=== PATIENT | female | born 1950 | race Caucasian/White ===

== ENCOUNTER 2023-12-08 13:48 | Outpatient (OUT) | payer OTHER, SELFPAY ==
[2023-12-09 16:09] LABS: Factor VIII Activity 210 % (56-140)
== END 2023-12-08 13:49 | disposition home or self-care (01) ==
LOC: LAB 13:54
DX: I26.99 Other pulmonary embolism without acute cor pulmonale (principal); D68.59 Other primary thrombophilia
CPT/HCPCS: 36415; 85240

== ENCOUNTER 2024-06-07 16:16 | Outpatient (OUT) | payer OTHER, SELFPAY ==
[2024-06-07 16:43] LABS: Hematocrit 39.9 % (36.0-48.0); Hemoglobin 13.3 g/dL (12.0-16.0); Mean Corpuscular HGB Conc 33.3 g/dL (29.9-35.2); Mean Corpuscular Hemoglobin 30.1 pg (26.7-34.0); Mean Corpuscular Volume 90.3 fL (81.0-99.0); Mean Platelet Volume 10.8 fL (9.5-13.5); Platelet Count 219 10^3/uL (150-450); Red Blood Count 4.42 10^6/uL (4.20-5.40); Red Cell Distribution Width 12.8 % (11.0-15.0)
[2024-06-07 16:47] LABS: Creatinine Urine Random 211.17 mg/dL (20.00-300.00); Protein Creatinine Ratio Urine 0.18; Total Protein Urine Random 37.9 mg/dL (<=11.9)
[2024-06-07 16:52] LABS: Albumin Level 3.4 g/dL (3.4-5.0); Anion Gap 10.4; BUN Creatinine Ratio 21.8; Calcium 9.6 mg/dL (8.5-10.1); Carbon Dioxide 27.9 mmol/L (21.0-32.0); Chloride 106 mmol/L (98-107); Estimated GFR (African America 54 (>=60 mL/min/1.73m^2); Estimated GFR (Non-African Ame 45 (>=60 mL/min/1.73m^2); Glucose 98 mg/dL (74-106); Magnesium 1.5 mg/dL (1.8-2.4); Phosphorus 3.4 mg/dL (2.6-4.7); Potassium 3.3 mmol/L (3.5-5.1); Sodium 141 mmol/L (136-145); Uric Acid 5.4 mg/dL (2.6-6.0)
[2024-06-07 17:10] LABS: Bilirubin Urine NEGATIVE (NEGATIVE); Blood Urine NEGATIVE (NEGATIVE); Clarity Urine CLEAR (CLEAR); Color Urine LT. YELLOW (YELLOW); Glucose Urine UA NEGATIVE (NEGATIVE); Ketones Urine TRACE mg/dL (NEGATIVE); Leukocyte Esterase Urine MODERATE (NEGATIVE); Nitrite Urine NEGATIVE (NEGATIVE); Protein Urine TRACE mg/dL (NEG/TRACE); Specific Gravity Urine 1.015 (1.005-1.025)
[2024-06-07 17:19] LABS: Bacteria Urine SMALL #/HPF (NONE SEEN); Mucus Urine SMALL (NONE SEEN); RBC Urine 0-2 #/HPF (0-2); Squamous Epithelial Cell Urine MODERATE #/LPF (NONE/RARE)
[2024-06-07 17:20] LABS: Cast Seen? NONE SEEN #/LPF (NONE SEEN); Crystals Seen? None Seen #/HPF (None Seen); Transitional Epi Cells Urine RARE #/LPF (NONE SEEN); Urine Culture Indicated YES-FRMC
[2024-06-09 11:08] LABS: PTH, Intact 73 pg/mL (15-65)
== END 2024-06-07 16:17 | disposition home or self-care (01) ==
LOC: LAB 16:18
PROVIDERS: Visit Provider Internal Medicine
DX: E78.5 Hyperlipidemia, unspecified (principal); E79.0 Hyperuricemia without signs of inflammatory arthritis and tophaceous disease; N25.81 Secondary hyperparathyroidism of renal origin; E55.9 Vitamin D deficiency, unspecified; I12.9 Hypertensive chronic kidney disease with stage 1 through stage 4 chronic kidney disease, or unspecified chronic kidney disease; R82.998 Other abnormal findings in urine
CPT/HCPCS: 36415; 80069; 81001; 82306; 82570; 83735; 83970; 84156; 84550; 85027; 87086; 87150

== ENCOUNTER 2024-12-20 08:14 | Outpatient (OUT) | payer OTHER, SELFPAY ==
--- OUTSIDE RECORDS SUMMARY | 2024-12-20 08:23 | XMS_ITS | CCD ---
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 Name Role Phone AMAURY MARTE Unavailable Unavailable [facility], PCP Unavailabl e Unavailable Family[facility] Health Services Primary Care Provider Un available Ginger Roland Attending Provider Unavailable Timothy Presley Attending Provider Unavailable Obed Dunn MD Primary Care Provider Obed Dunn MD Primary Care Provider Obed Dunn MD Primary Care Provider Timothy Presley Unavailable Obed Dunn MD Primary Care Provider EDWARDO FARRIS Consulting Unavailable JUSTIN JEFFERSON Admitting Unavailangélica e JUSTIN JEFFERSON Attending Unavailabl e ANTONIO TY Referring Unavailable OBED DUNN Primary Care Unavailable LEO SAUCEDA Consulting Unavailable NICOLE HASSAN Consulting Unavailable Obed Dunn MD Primary Care Provider Obed Dunn MD Primary Care Provider Obed Dunn MD Primary Care Provider Obed Dunn MD Primary Care Provider GINGER ROLAND Primary Care Physician Bradly Doyle MD Primary Care Provider MALDONADO GONZALEZ Referring Unavailable OBED DUNN Primary Care Unavailable JUAN PABLO COSBY Referring Unavailable BRADLY DOYLE Primary Care Unavailable Marvin Husain Primary Care Physician Marvin Husain Primary Care Physician Marvin Husain PA-C Primary Care Provider ANN CORNEJO Referring Unavailable BRADLY DOYLE Primary Care Unavailable CHANTAL, ANN Referring Unavailable BROWN, BRADLY Davidson Primary Care Unavailable CHANTAL, ANN Referring Unavailable VIVEK, BRADLY Davidson Primary Care Unavailable JUSTIN JC Attending Unavailable MARVIN HUSAIN Primary Care Unavailable TIMOTHY PRESLEY Referring Unavailable BRADLY DOYLE Primary Care Unavailable IGNACIA LARA Referring Unavailable CLINGMAN, CESAR Quintero Primary Care Unavailable CHANTAL, ANN Referring Unavailable CLINGMAN, CESAR A Primary Care Unavailable CHANTAL, ANN Referring Unavailable CLINGMAN, CESAR A Primary Care Unavailable CHANTAL, ANN Referring Unavailable CLINGMAN, CESAR A Primary Care Unavailable MIGDALIA Husain Primary Care Provider MD Timothy Presley Attending Provider [phone] Loreta Casillas Primary Care Physician Vasile Robison Attending Unavailable MD Mckinley Palomares Admit Provider MD Mckinley Palomares Attending Provider MIGDALIA Husain Primary Care Provider MD Timothy Presley Attending Provider [phone] MD Mckinley Palomares Attending Provider MD Mckinley Palomares Admit Provider Spasic, EXECUTIVE COMMUNICATIONS MANAGER-C Ginger Calhoun Attending Provider Marvin Husain PA-C Primary Care Provider Mckinley Palomares MD Attending Provider Mckinley Palomares MD Admit Provider Spasic EXECUTIVE COMMUNICATIONS MANAGER-CGinger Attending Provider Spasic EXECUTIVE COMMUNICATIONS MANAGER-CGinger Primary Care Provider Marvin Husain Attending Unavailable Husain, Marvin E. Attending Unavailable Husain, Marvin E. Attending Unavailable Husain, Marvin E. Attending Unavailable Husain, Marvin E. Attending Unavailable WittenauerMartha S. Attending Unavailable HusainMarvin Attending Unavailable LupilloLoreta LMary Kate Attending Unavailable Husain, Marvin E. Referring Unavailable Townsend, Basem G. Admitting Unavailable Townsend, Basem G. Attending Unavailable Husain, Mavrin E. Attending Unavailable Husain, Marvin E. Admitting Unavailable Husain, Marvin EMary Kate Attending Unavailable Husain, Marvin EMary Kate Admitting Unavailable BhanuMiguel Attending Unavailable Townsend, Basem G. Attending Unavailable Husain, Marvin E. Referring Unavailable Townsend, Basem G. Admitting Unavailable BROWN, Christopher Attending Unavailable BROWN Christopher Referring Unavailable Husain, Marvin E. Attending Unavailable Husain, Marvin E. Referring Unavailable Husain, Marvin E. Admitting Unavailable Husain, Marvin E. Admitting Unavailable Husain, Marvin Mehta Attending Unavailable Husain, Marvin EMary Kate Attending Unavailable Husain, Marvin Calhoun. Attending Unavailable Husain, Marvin Mehta Attending Unavailable Spasic EXECUTIVE COMMUNICATIONS MANAGER-C, Ginger Calhoun Primary Care Provider Chidi Timothy CESAR Attending Provider Filiberto Casillasmy LMary Kate Attending Unavailable Lupillo Loreta LMary Kate Attending Unavailable Lupillo, Loreta L. Admitting Unavailable Lupillo, Loreta L. Attending Unavailable Lupillo, Loreta L. Admitting Unavailable Jelani, Mckinley Admitting Unavailab le Jelani, Mckinley Attending Unavailab le HusainMarvin lawler Primary Care Unavailable Jelani, Mckinley Admitting Unavailab le Jelani, Mckinley Attending Unavailab le HusainMarvin lawler Primary Care Unavailable SpasiGinger correa Primary Care Unavailable ChidiTimothy Admitting Unavailable ChidiTimothy Attending Unavailable ChidiTimothy Attending Unavailable HusainMarvin lawler Primary Care Unavailable Chidi, Timothy Admitting Unavailable Spasic, Ginger E Attending Unavailable Spasic, Ginger E Admitting Unavailable Spasic, Ginger E Primary Care Unavailable Spasic, Ginger E Attending Unavailable Spasic, Ginger E Admitting Unavailable Justin Doyle MD Primary Care Provider Loreta Casillas MD EDUAR CARPENTER Attending Unavailable EDUAR CARPENTER Attending Unavailable Lupillo, Loreta L. Attending Unavailable Lupillo, Loreta L. Attending Unavailable Lupillo, Loreta L. Attending Unavailable Toward, Alexi E Attending Unavailable Townsend, Basem G. Attending Unavailable Husain, Marvin E. Referring Unavailable Lupillo, Loreta L. Referring Unavailable Lupillo, Loreta L. Admitting Unavailable Lupillo, Loreta L. Attending Unavailable Toward, Alexi E Admitting Unavailable Toward, Alexi E Attending Unavailable Hajdari, Astrit H Attending Unavailable Art, Jia A. Admitting Unavailable Lupillo, Loreta L. Attending Unavailable Lupillo, Loreta L. Attending Unavailable Husain, Marvin E. Admitting Unavailable HusainMarvin E. Attending Unavailable Lupillo, Loreta L. Attending Unavailable Lupillo EXECUTIVE COMMUNICATIONS MANAGER-C, Loreta L Primary Care Provider Kendra Marquez MD Attending Provider Lupillo, Loreta L. Attending Unavailable Lupillo, Loreta L. Admitting Unavailable Lupillo, Loreta L. Attending Unavailable Lupillo, Loreta L. Attending Unavailable Lupillo, Loreta L. Admitting Unavailable Lupillo, MSN, APPLE PACKING HEADER-ACTIVITY THERAPIST Loreta L. Admitting U navailable Lupillo, MSN, APPLE PACKING HEADER-ACTIVITY THERAPIST Loreta L. Attending U navailable Lupillo, MSN, APPLE PACKING HEADER-ACTIVITY THERAPIST Loreta L. Admitting U navailable Lupillo, MSN, APPLE PACKING HEADER-ACTIVITY THERAPIST Loreta L. Attending U navailable Lupillo, MSN, APPLE PACKING HEADER-ACTIVITY THERAPIST Loreta L. Admitting U navailable Lupillo, MSN, APPLE PACKING HEADER-ACTIVITY THERAPIST Loreta L. Attending U navailable Lupillo, MSN, APPLE PACKING HEADER-ACTIVITY THERAPIST Loreta L. Attending U navailable Unavailable Unavailable Unavailable Allergies Allergy Classification Reported Allergen(s) Allergy Type Date of Onset Reaction(s) Facility Penicillins (antibiotic) (1 source) Amoxicillin; Translations: [amoxicillin] Drug Allergy Anaphylaxis (disorder) [facility] [place] (20 sources) Amoxicillin; Translations: [amoxicillin] Drug Allergy 3 anaphylaxis, Anaphylaxis (disorder) [facility] (1 source) Amoxicillin Drug Allergy 5 [facility] Repository Medications Current Medications Medication Drug Class(es) Dates Sig (Normalized) Sig (Original) Accu-Chek Smart View 1 (1 source) Start: 06-23-2016 Accu-Chek Smart View 1 as directed subcutaneously tid for 30 Jun, Active Acetaminophen (2 sources) Start: 09-17-2022 acetaminophen (TYLENOL) tablet 650 mg Start: 11-22-2020 acetaminophen (TYLENOL) tablet 650 mg acetaminophen 325 mg / HYDROcodone bitartrate 5 mg oral tablet (19 sources) Opioid Agonist Start: 04-30-2022 End: 05-03-2022 HYDROcodone-acetaminophen (NORCO) 5-325 MG per tablet Indications: Infrapatellar bursitis of left knee Take 1 tablet by mouth every 6 hours as needed for Pain for up to 3 days. Intended supply: 3 days. Take lowest dose possible to manage pain Max Daily Amount: 4 tablets 12 tablet 0 04/30/2022 05/03/2022 Active Start: 09-25-2021 End: 09-25-2021 HYDROcodone-acetaminophen (N ORCO) 5-325 MG per tablet 1 tablet Start: 08-24-2017 End: 11-23-2023 take 2 tablets by mouth every four hours as needed for pain Hydrocodone-Acetaminophen ([place]) 5-325 mg tablet Discontinued 2 TAB PO Q4H as needed for pain August 24, 2017 November 23, 2023 9:38am albuterol 0.83 mg/ml inhalation solution (1 source) beta2-Adrenergic Agonist Start: 11-22-2020 albut asa (PROVENTIL) nebulizer solution 2.5 mg Alcohol swabs, Kinde, band-aids (20 sources) Start: 05-05-2017 Alcohol swabs, Jose F, band-aids Alcohol swabs, Kinde, band-aids, Diabetic supply for a month with 2 refills, for 30 day(s), 2, 2, Print Requisition, Supply Start Date: 05/05/17 Status: Ordered Repeat number: 3 Indications: Type 2 diabetes mellitus with hyperglycemia; Start: 05-05-2017 Alcohol swabs, Kinde, band-aids Alcohol swabs, Jose F, band- aids, Diabetic supply for a month with 2 refills, for 30 day(s), 2, 2, Print Requisition, Supply Start Date: 05/05/17 Status: Ordered Repeat number: 3 Indication: Type 2 diabetes mellitus with hyperglycemia Start: 05-05-2017 Alcohol swabs, Kinde, band-aids Alcohol swabs, Jose F, band- aids, Diabetic supply for a month with 2 refills, for 30 day(s), 2, 2, Print Requisition, Supply Start Date: 05/05/17 Status: Ordered amLODIPine 5 mg oral tablet (20 sources) Dihydropyridine Calcium Channel Shruthi Start: 05-04-2017 End: 07-20-2025 take 1 tablet by mouth once daily amLODIPine 5 mg Tab 5 mg = 1 tab(s), Oral, Daily, # 90 tab(s), Refills(s) 3, Pharmacy: [facility]/pharmacy #[id number], 157.5, cm, 07/25/24 9:05:00 EDT, Height/Length Dosing, 78.7, kg, 07/25/24 9:05:00 EDT, Weight Dosing Start Date: 07/25/24 Stop Date: 07/20/25 Status: Ordered Quantity: 90.0 Unit: tab(s) Repeat number: 4 apixaban 2.5 mg oral tablet (20 sources) Factor Xa Inhibitor Start: 12-23-2022 take 1 tablet by mouth twice daily Eliquis 2.5 mg oral tablet 2.5 mg = 1 tab(s), Oral, BID, # 60 tab(s), Refills(s) 0 Start Date: 12/23/22 Status: Ordered Start: 09-17-2022 take 2.5 mg by mouth twice daily 2.5 mg, Oral, 2 TIMES DAILY, First dose on Thu09/17/22 at 2100, Until Discontinued Indication of Use: Treatment-DVT/PE ANTICOAGULANT Start: 08-22-2021 take 1 tablet by paloma twice daily apixaban (ELIQUIS) 2.5 MG TABS tablet Indications: PE (pulmonary thromboembolism) (HCC) Take 1 tablet by mouth 2 times daily 60 tablet 5 08/08/2022 Active Start: 06-26-2021 take 1 tablet by paloma th twice daily ELIQUIS 5 MG TABS tablet take 1 tablet by mouth twice a day 60 tablet 5 06/26/2021 Active Start: 01-01-2021 take 1 tablet by paloma th twice daily apixaban (ELIQUIS) 5 MG TABS tablet Take 1 tablet by mouth 2 times daily 60 tablet 5 01/01/2021 Active Start: 12-02-2020 End: 12-25-2020 take 1 tablet by mouth twice daily apixaban (ELIQUIS) 5 MG TABS tablet Take 1 tablet by mouth 2 times daily for 23 days 46 tablet 0 12/02/2020 12/25/2020 Active Start: 11-24-2020 End: 12-01-2020 apixaban (ELIQUIS) tablet 10 mg Start: 11-24-2020 End: 11-24-2020 apixaban starter pack (ELIQU IS DVT/PE STARTER PACK) 5 MG TBPK tablet Take 1 tablet by mouth See Admin Instructions 74 tablet 0 11/24/2020 11/24/2020 Discontinued (Stop Taking at Discharge) Start: 11-24-2020 End: 12-01-2020 take 2 tablets by mouth twice daily apixaban (ELIQUIS) 5 MG TABS tablet Take 2 tablets by mouth 2 times daily for 7 days 28 tablet 0 11/24/2020 12/01/2020 Active ARIPiprazole 5 mg oral tablet (20 sources) Atypical Antipsychotic Start: 03-08-2024 End: 03-20-2025 take 1 tablet by mouth once daily Abilify 5 mg Tab 5 mg = 1 tab(s), Oral, Daily, X 90 day(s), # 90 tab(s), Refills(s) 3, Pharmacy: [facility]/pharmacy #[id number], 157.5, cm, 03/25/24 10:49:00 EST, Height/Length Dosing, 87.6, kg, 03/25/24 10:49:00 EST, Weight Dosing Start Date: 03/25/24 Stop Date: 03/20/25 Status: Ordered Quantity: 90.0 Unit: tab(s) Repeat number: 4 Start: 01-19-2024 End: 02-18-2024 take 1 tablet by mouth once daily Abilify 5 mg Tab 5 mg = 1 tab(s), Oral, Daily, X 30 day(s), # 30 tab(s), Refills(s) 0, other reason (Rx) Start Date: 01/19/24 Stop Date: 02/18/24 Status: Ordered Start: 01-01-2024 End: 06-08-2024 take 1 tablet by mouth once daily at bedtime Aripiprazole 2 mg Tablet Discontinued 2 MG PO Daily at bedtime January 01, 2024 12:00am June 08, 2024 4:56pm atorvastatin 40 mg oral tablet (20 sources) HMG-CoA Reductase Inhibitor Start: 11-22-2024 take 1 tablet by mouth once daily atorvastatin 40 mg Tab See Instructions, TAKE 1 TABLET BY MOUTH EVERY DAY, # 90 tab(s), Refills(s) 3, Pharmacy: [facility]/pharmacy #[id number], 157.5, cm, 11/22/24 8:29:00 EDT, Height/Length Dosing, 75, kg, 11/22/24 8:29:00 EDT, Weight Dosing Start Date: 11/22/24 Status: Ordered Quantity: 90.0 Unit: tab(s) Repeat number: 4 Start: 07-11-2021 take 1 tablet by paloma once daily Atorvastatin 40 mg tablet Active 40 MG PO Daily November 23, 2023 12:00am Complies with drug therapy Start: 11-22-2020 take 20 mg by mouth once daily 20 mg, Oral, DAILY, First dose on Nia 11/22/20 at 1015 Substituted for Simvastatin (ZOCOR). Start: 10-25-2020 End: 10-25-2020 atorvastatin (LIPITOR) table t 80 mg benzonatate 100 mg oral capsule (2 sources) Non-narcotic Antitussive Start: 05-10-2024 End: 05-17-2024 take 1 capsule by mouth three times daily Tessalon 100 mg Cap 100 mg = 1 cap(s), Oral, TID, X 7 day(s), # 21 cap(s), Refills(s) 0, Pharmacy: [facility]/pharmacy #[id number], 157.5, cm, 05/10/24 9:05:00 EST, Height/Length Dosing, 85, kg, 05/10/24 9:05:00 EST, Weight Dosing Start Date: 05/10/24 Stop Date: 05/17/24 Status: Ordered blood glucose monitor kit and supplies (20 sources) Start: 09-26-2020 blood glucose monitor kit and supplies Indications: Type 2 diabetes mellitus without complication, with long-term current use of insulin (HCC) Please Dispense One Touch Verio and test sugars 2 times dx E11.9 1 kit 0 09/26/2020 Active cephalexin 500 mg oral capsule (3 sources) Cephalosporin Antibacterial Start: 07-03-2022 take 1 capsule by mouth twice daily cephALEXin (KEFLEX) 500 MG capsule Take 1 capsule by mouth 2 times daily 14 capsule 0 07/03/2022 Active clotrimazole 10 mg/ml topical cream (2 sources) Azole Antifungal Start: 03-04-2021 clotrimazole (LOTRIMIN) 1 % cream Indications: Intertrigo Apply 1 inch topically 2 times daily 45 g 0 03/04/2021 Active Clotrimazole 1 % 1 application Externally Twice a day Active dextromethorphan hydrobromide 3 mg/ml / promethazine hydrochloride 1.25 mg/ml oral solution (2 sources) Phenothiazine, Uncompetitive T-ksgrnx-E-aspartate Receptor Antagonist, Sigma-1 Agonist Start: 05-10-2024 take 5 mL by mouth every six hours for cough dextromethorphan-promethazine 15 mg-6.25 mg/5 mL Oral Syrup 5 mL 5 mL, Oral, q6hr for cough, 120 mL, Refill(s) 0, [facility]/pharmacy #[id number], 157.5, cm, 05/10/24 9:05:00 EST, Height/Length Dosing, 85, kg, 05/10/24 9:05:00 EST, Weight Dosing Start Date: 05/10/24 Status: Ordered docusate sodium 100 mg oral capsule (1 source) Start: 04-02-2023 take 1 capsul e by mouth once daily docusate sodium (COLACE) 100 MG capsule Take 1 capsule by mouth daily 60 capsule 5 04/02/2023 Active 0.8 ml enoxaparin sodium 150 mg/ml prefilled syringe (2 sources) Low Molecular Weight Heparin Start: 12-05-2020 End: 12-23-2020 enoxaparin (LOVENOX) 120 MG/0.8ML injection Indications: Axillary lymphadenopathy , PE (pulmonary thromboembolism) (HCC) , Class 3 severe obesity due to excess calories with serious comorbidity in adult, unspecified BMI (HCC) , Hypothyroidism, unspecified type Inject 0.67 mLs into the skin every 12 hours 6 each 0 12/05/2020 12/23/2020 Discontinued (LIST CLEANUP) ergocalciferol 1.25 mg oral capsule (20 sources) Provitamin D2 Compound Start: 06-08-2024 take 1 capsul e by mouth every week Ergocalciferol (Vitamin D2) 1,250 mcg (50,000 unit) capsule Active 1250 MCG PO every week June 08, 2024 1:00am Complies with drug therapy Start: 10-27-2023 End: 12-30-2023 take 1 capsule by mouth every week Ergocalciferol (Vitamin D2) 1,250 mcg (50,000 unit) capsule Discontinued 0 .ROUTE .COMPLEX October 27, 2023 7:11pm December 30, 2023 6:46am take 1 capsule by mouth every week Start: 10-27-2023 End: 12-30-2023 take 1 capsule by mouth every week Ergocalciferol (Vitamin D2) 1,250 mcg (50,000 unit) capsule Discontinued 0 .ROUTE .COMPLEX October 27, 2023 7:11pm December 30, 2023 6:46am take 1 capsule by mouth every week Start: 10-27-2023 End: 12-30-2023 take 1 capsule by mouth every week Ergocalciferol (Vitamin D2) 1,250 mcg (50,000 unit) capsule Discontinued 0 .ROUTE .COMPLEX October 27, 2023 6:11pm December 30, 2023 5:46am take 1 capsule by mouth every week Start: 10-27-2023 End: 12-30-2023 take 1 capsule by mouth every week Ergocalciferol (Vitamin D2) Discontinued 0 .ROUTE .COMPLEX October 27, 2023 6:11pm December 30, 2023 5:46am take 1 capsule by mouth every week Start: 10-27-2023 End: 12-30-2023 take 1 capsule by mouth every week Ergocalciferol (Vitamin D2) Discontinued 0 .ROUTE .COMPLEX October 27, 2023 7:11pm December 30, 2023 6:46am take 1 capsule by mouth every week Start: 10-27-2023 take 1 capsule by mo uth every week Ergocalciferol (Vitamin D2) Active 0 .ROUTE .COMPLEX October 27, 2023 7:11pm take 1 capsule by mouth every week Start: 10-14-2023 End: 10-27-2023 Ergocalciferol (Vitamin D2) 1,250 mcg (50,000 unit) capsule Discontinued [id number] UNIT PO Once a week October 14, 2023 12:00am October 27, 2023 7:12pm Start: 10-14-2023 End: 10-27-2023 take 25698 [IU] by mouth every week Ergocalciferol (Vitamin D2) Discontinued [id number] UNIT PO Once a week October 13, 2023 11:00pm October 27, 2023 6:12pm Start: 12-23-2022 take 1 capsule by mo uth every week ergocalciferol 50,000 intl units Cap 50,000 International_Unit = 1 cap(s), Oral, qWeek, # 4 cap(s), Refills(s) 0 Start Date: 12/23/22 Status: Ordered Start: 09-24-2021 take 1 capsule by mo uth every week ergocalciferol 50,000 intl units Cap 50,000 International_Unit = 1 cap(s), Oral, qWeek, # 4 cap(s), Refills(s) 0 Start Date: 12/23/22 Status: Ordered Quantity: 4.0 Unit: cap(s) Repeat number: 1 escitalopram 10 mg oral tablet (20 sources) Serotonin Reuptake Inhibitor Start: 03-08-2024 take 1 tablet by mouth once daily Lexapro 10 mg Tab 10 mg = 1 tab(s), Oral, Daily, # 90 tab(s), Refills(s) 3, Pharmacy: [facility]/pharmacy #[id number], 157.5, cm, 03/25/24 10:49:00 EST, Height/Length Dosing, 87.6, kg, 03/25/24 10:49:00 EST, Weight Dosing Start Date: 03/25/24 Status: Ordered Quantity: 90.0 Unit: tab(s) Repeat number: 4 Start: 01-12-2024 take 1 tablet by paloma th once daily Lexapro 10 mg Tab 10 mg = 1 tab(s), Oral, Daily, # 90 tab(s), Refills(s) 0, Pharmacy: [facility]/pharmacy #[id number], 152, cm, 01/12/24 14:19:00 EDT, Height/Length Dosing, 85.5, kg, 01/12/24 14:19:00 EDT, Weight Dosing Start Date: 01/12/24 Status: Ordered Start: 01-01-2024 End: 06-08-2024 take 1 tablet by mouth once daily Escitalopram Oxalate 5 mg Tablet Discontinued 5 MG PO Daily January 01, 2024 12:00am June 08, 2024 4:56pm fluconazole 100 mg oral tablet (10 sources) Azole Antifungal Start: 07-31-2023 End: 08-07-2023 take 1 tablet by mouth once daily fluconazole 100 mg Tab 100 mg = 1 tab(s), Oral, Daily, X 7 day(s), # 7 tab(s), Refills(s) 0, Pharmacy: [facility] #[id number], 157, cm, 07/31/23 8:01:00 EDT, Height/Length Dosing, 93, kg, 07/31/23 8:01:00 EDT, Weight Dosing Start Date: 07/31/23 Stop Date: 08/07/23 Status: Ordered Start: 12-23-2022 fluconazole 15 0 mg Tab 150 mg = 1 tab(s), Oral, q7day, # 2 tab(s), Refills(s) 0, [id number], 152, cm, 12/23/22 9:01:00 EDT, Height/Length Dosing, 93.1, kg, 12/23/22 9:01:00 EDT, Weight Dosing Start Date: 12/23/22 Status: Ordered folic acid 1 mg oral tablet (20 sources) Start: 01-02-2022 take 1 tablet by mouth once daily folic acid 1 mg Tab See Instructions, TAKE 1 TABLET BY MOUTH EVERY DAY, # 90 tab(s), Refills(s) 2, Pharmacy: [id number], 157.5, cm, 05/10/24 9:05:00 EST, Height/Length Dosing, 85, kg, 05/10/24 9:05:00 EST, Weight Dosing Start Date: 05/23/24 Status: Ordered Quantity: 90.0 Unit: tab(s) Repeat number: 1 gabapentin 300 mg oral capsule (20 sources) Anti-epilepti c Agent Start: 05-04-2021 gabapentin (NEURONTIN) 300 MG capsule daily. 0 05/04/2021 Active Start: 05-23-2020 take 1 capsule by mo uth three times daily at mealtime gabapentin (NEURONTIN) 300 MG capsule TAKE 1 CAPSULE BY MOUTH THREE TIMES A DAY WITH MEALS 0 05/23/2020 Active glimepiride 4 mg oral tablet (20 sources) Sulfonylurea Start: 07-26-2020 take 1 tablet by mouth once daily glimepiride 4 mg Tab 4 mg = 1 tab(s), Oral, Daily, # 90 tab(s), Refills(s) 3, Pharmacy: [facility]/pharmacy #[id number], 157.5, cm, 03/25/24 10:49:00 EST, Height/Length Dosing, 87.6, kg, 03/25/24 10:49:00 EST, Weight Dosing Start Date: 03/25/24 Status: Ordered Quantity: 90.0 Unit: tab(s) Repeat number: 4 Start: 05-05-2017 End: 11-23-2023 take 1 tablet by mouth once daily Glimepiride 2 mg tablet Discontinued 2 MG PO Daily August 24, 2017 12:00am November 23, 2023 9:38am Glucometer (20 sources) Start: 05-05-2017 Glucometer Glu cometer, Print Requisition, Supply Start Date: 05/05/17 Status: Ordered Repeat number: 1 Indications: Type 2 diabetes mellitus with hyperglycemia; Start: 05-05-2017 Glucometer Glu cometer, Print Requisition, Supply Start Date: 05/05/17 Status: Ordered Repeat number: 1 Indication: Type 2 diabetes mellitus with hyperglycemia Start: 05-05-2017 Glucometer Glu cometer, Print Requisition, Supply Start Date: 05/05/17 Status: Ordered 1000 ml glucose 100 mg/ml injection (6 sources) Start: 09-17-2022 take 1 mL intravenously every hour IntraVENous, at 100 mL/hr, CONTINUOUS PRN, if blood glucose remains LESS THAN 70 mg/dL after 2 dextrose 10% intravenous boluses or administration of glucagon, Starting on Thu09/17/22 at 2017 If blood glucose fails to stabilize after 2 dextrose 10% intravenous boluses or glucagon administration, start dextrose 10% infusion at 100 mL/hour and repeat blood glucose at 30 and 60 minutes. If blood glucose is GREATER THAN 70 mg/dL after 60 minutes, discontinue dextrose 10% infusion. Start: 09-17-2022 dextrose bolus 10% 125 mL Start: 09-17-2022 16 g (4 tablet ), Oral, PRN, Starting on Thu09/17/22 at 2017, Until Discontinued, Low blood sugar If blood glucose is LESS THAN 70 mg/dL and patient is alert and tolerating oral. Give 4 tablets (16g) Repeat blood glucose in 15 minutes. If blood glucose is LESS THAN 70 mg/dL, repeat treatment and recheck blood glucose in 15 minutes x 2. If blood glucose remains LESS THAN 70 mg/dL, notify provider. Start: 11-22-2020 glucose (GLUTO SE) 40 % oral gel 15 g Start: 11-22-2020 dextrose 50 % IV solution Start: 11-22-2020 dextrose 5 % s olution guaiFENesin 20 mg/ml oral solution (1 source) Start: 11-22-2020 guaiFENesin (ROBITUSSIN) 100 MG/5ML oral solution 200 mg 3 ml insulin glargine 100 unt/ml pen injector (20 sources) Insulin Analog Start: 07-20-2024 inject 30 [IU] by subcutaneous injection once daily at mealtime, then inject 20 [IU] by subcutaneous injection in the evening Start: 02-02-2024 inject 30 [IU] by low bcutaneous injection once daily at mealtime, then inject 20 [IU] by subcutaneous injection once daily in the evening Basaglar KwikPen 100 units/mL subcutaneous solution See Instructions, 30 units SUBQ every morning with food 20 units SUBQ every evening rotate injection sites, # 15 mL, Refills(s) 5, Pharmacy: [facility]/pharmacy #[id number], 152, cm, 02/02/24 9:32:00 EDT, Height/Length Dosing, 85.8, kg, 02/02/24 9:42:00 EDT, Weight Dosing Start Date: 02/02/24 Status: Ordered Start: 11-23-2023 Insulin Glargi ne (Basaglar Kwikpen U-100 Insulin) 100 unit/mL (3 mL) insulin pen Active 20 UNIT SUBCUT Every evening November 23, 2023 12:00am Complies with drug therapy Start: 07-31-2023 inject 30 [IU] by low bcutaneous injection once daily at mealtime, then inject 20 [IU] by subcutaneous injection once daily in the evening Basaglar KwikPen 100 units/mL subcutaneous solution See Instructions, 30 units SUBQ every morning with food 20 units SUBQ every evening rotate injection sites, # 15 mL, Refills(s) 5, Pharmacy: [facility] #[id number], 165, cm, 12/01/23 8:09:00 EDT, Height/Length Dosing, 85, kg, 12/01/23 8:09:00 EDT, Weight Dosing Start Date: 12/02/23 Status: Ordered Start: 12-23-2022 Basaglar KwikP en 100 units/mL subcutaneous solution inject 30 units subcutaneously once daily Start Date: 12/23/22 Status: Ordered Start: 01-16-2022 Insulin Glargi ne (Basaglar Kwikpen U-100 Insulin) 100 unit/mL (3 mL) insulin pen Active 30 UNIT SUBCUT Every morning November 23, 2023 12:00am Complies with drug therapy Start: 08-28-2021 BASAGLAR KWIKP EN 100 UNIT/ML injection pen Inject 30 units SC daily 5 pen 2 08/28/2021 Active Start: 01-01-2021 BASAGLAR KWIKP EN 100 UNIT/ML injection pen Inject 30 units SC daily 5 pen 2 01/01/2021 Active Start: 10-25-2020 insulin glargi ne (LANTUS) injection vial 30 Units Start: 10-23-2020 BASAGLAR KWIKP EN 100 UNIT/ML injection pen Inject 30 units SC daily 5 pen 2 10/23/2020 Active Start: 10-23-2020 BASAGLAR KWIKP EN 100 UNIT/ML injection pen Inject 30 units SC daily 5 pen 2 10/23/2020 Active Start: 07-26-2020 BASAGLAR KWIKP EN 100 UNIT/ML injection pen Inject 30 units SC daily 5 pen 2 07/26/2020 Active ketoconazole 20 mg/ml topical cream (20 sources) Azole Antifungal Start: 06-08-2024 Ketoconazole 2 % cream Active 1 APPLIC TOPICAL Twice daily June 08, 2024 1:00am Complies with drug therapy Start: 07-31-2023 ketoconazole T op 2% Crm 1 boyd, Topical, Daily, 60 gram, Refill(s) 0, [facility] #[id number], 157, cm, 07/31/23 8:01:00 EDT, Height/Length Dosing, 93, kg, 07/31/23 8:01:00 EDT, Weight Dosing Start Date: 07/31/23 Status: Ordered Quantity: 60.0 Unit: g Repeat number: 1 levothyroxine sodium 0.075 mg oral tablet (20 sources) l-Thyroxine Start: 10-24-2024 take 1 tablet by mouth once daily levothyroxine 75 mcg (0.075 mg) Tab 75 mcg = 1 tab(s), Oral, Daily, # 90 tab(s), Refills(s) 4, Pharmacy: [facility]/pharmacy #[id number], 157.5, cm, 07/25/24 9:05:00 EDT, Height/Length Dosing, 78.7, kg, 07/25/24 9:05:00 EDT, Weight Dosing Start Date: 10/24/24 Status: Ordered Quantity: 90.0 Unit: tab(s) Repeat number: 5 Start: 07-26-2024 take 1 tablet by paloma th once daily levothyroxine 75 mcg (0.075 mg) Tab 75 mcg = 1 tab(s), Oral, Daily, # 90 tab(s), Refills(s) 0, Pharmacy: [facility]/pharmacy #[id number], 157.5, cm, 07/25/24 9:05:00 EDT, Height/Length Dosing, 78.7, kg, 07/25/24 9:05:00 EDT, Weight Dosing Start Date: 07/26/24 Status: Ordered Quantity: 90.0 Unit: tab(s) Repeat number: 1 Start: 12-01-2023 take 1 tablet by paloma th once daily in the morning levothyroxine 88 mcg (0.088 mg) Tab 88 mcg = 1 tab(s), Oral, Daily, take 1 tablet by mouth every morning ON AN EMPTY STOMACH, # 90 tab(s), Refills(s) 3, Pharmacy: [facility]/pharmacy #[id number], 157.5, cm, 03/25/24 10:49:00 EST, Height/Length Dosing, 87.6, kg, 03/25/24 10:49:00 EST, Weight Dosing Start Date: 03/25/24 Status: Ordered Quantity: 90.0 Unit: tab(s) Repeat number: 4 Start: 11-23-2023 take 1 tablet by paloma th once daily Levothyroxine 88 mcg tablet Active 88 MCG PO Daily November 23, 2023 12:00am Complies with drug therapy Start: 12-18-2022 take 1 tablet by paloma th once daily in the morning levothyroxine 88 mcg (0.088 mg) Tab 88 mcg = 1 tab(s), Oral, Daily, take 1 tablet by mouth every morning ON AN EMPTY STOMACH, # 90 tab(s), Refills(s) 1, Pharmacy: [facility] #[id number], 157, cm, 06/22/23 8:55:00 EDT, Height/Length Dosing, 93.4, kg, 06/22/23 8:55:00 EDT, Weight Dosing Start Date: 06/23/23 Status: Ordered Start: 06-16-2022 take 1 tablet by paloma th once daily in the morning levothyroxine (SYNTHROID) 88 MCG tablet take 1 tablet by mouth every morning ON AN EMPTY STOMACH 90 tablet 1 06/16/2022 Active Start: 09-12-2021 take 1 tablet by paloma th in the morning levothyroxine (SYNTHROID) 88 MCG tablet TAKE 1 TABLET BY MOUTH IN THE MORNING ON AN EMPTY STOMACH 90 tablet 1 09/12/2021 Active Start: 03-13-2021 take 1 tablet by paloma th once daily in the morning levothyroxine (SYNTHROID) 88 MCG tablet take 1 tablet by mouth every morning ON AN EMPTY STOMACH 90 tablet 1 03/13/2021 Active Start: 01-08-2021 Levothyroxine Sodium 88 MCG CAPS 1 tablet on an empty stomach in the morning 90 capsule 1 01/08/2021 Active Start: 11-25-2020 levothyroxine (SYNTHROID) tablet 88 mcg Start: 11-22-2020 End: 11-23-2020 take 88 ug by mouth once daily at breakfast 88 mcg, Oral, DAILY WITH BREAKFAST, First dose on Nia 11/22/20 at 1015 Tube feeding (TF) interaction, obtain physician order to manage, recommend holding TF for 30 minutes before and after dose. Start: 07-26-2020 End: 12-20-2020 Levothyroxine Sodium 88 MCG CAPS 1 tablet on an empty stomach in the morning 90 capsule 1 12/20/2020 Active Start: 08-24-2017 End: 11-23-2023 take 1 tablet by mouth once daily Levothyroxine 100 mcg tablet Discontinued 100 MCG PO Daily August 24, 2017 12:00am November 23, 2023 9:38am Start: 08-24-2017 End: 08-24-2017 Levothyroxine 100 mcg tablet Discontinued August 24, 2017 12:00am August 24, 2017 6:23am Start: 06-09-2014 take 1 tablet by paloma th once daily levothyroxine 100 mcg (0.1 mg) Tab 100 microgram = 1 tab(s), Oral, Daily, Refills(s) 0 Start Date: 06/09/14 Status: Ordered Levothyroxine So dium 88 MCG TAKE 1 TABLET EVERY DAY Orally Once a day Active lisinopril 2.5 mg oral tablet (20 sources) Angiotensin Converting Enzyme Inhibitor Start: 12-01-2023 take 1 tablet by mouth once daily lisinopril 2.5 mg Tab 2.5 mg = 1 tab(s), Oral, Daily, # 90 tab(s), Refills(s) 1, Pharmacy: [facility] #[id number], 165, cm, 12/01/23 8:09:00 EDT, Height/Length Dosing, 85, kg, 12/01/23 8:09:00 EDT, Weight Dosing Start Date: 12/01/23 Status: Ordered Start: 05-27-2021 End: 09-17-2022 take 1 tablet by mouth once daily lisinopril (PRINIVIL;ZESTRIL) 2.5 MG tablet TAKE 1 TABLET BY MOUTH EVERY DAY 0 05/27/2021 Active magnesium chloride 598 mg delayed release oral tablet (7 sources) Start: 06-08-2024 take 1 tablet by mouth once daily Magnesium Chloride (Slow-Mag) 71.5 mg tablet,delayed release (DR/EC) Active 71.5 MG PO Daily June 08, 2024 1:00am Complies with drug therapy magnesium citrate (15 sources) Start: 07-31-2023 magnesium citrate Refill(s) 0 Start Date: 07/31/23 Status: Ordered magnesium oxide 400 mg oral tablet (1 source) Start: 05-18-2023 take 1 tablet by mouth every twenty-four hours Magnesium Oxide 400 MG 1 Tablet Orally Once a day for 90 days May, Active 100 ml magnesium sulfate 10 mg/ml injection (1 source) Start: 11-22-2020 magnesium sulfate 1000 mg in dextrose 5% 100 mL IVPB memantine hydrochloride 10 mg oral tablet (20 sources) Z-ddyxzn-S-aspar nguyen Receptor Antagonist Start: 06-28-2020 take 1 tablet by mouth twice daily Namenda 10 mg oral tablet 10 mg = 1 tab(s), Oral, BID, # 180 tab(s), Refills(s) 3, Pharmacy: [facility]/pharmacy #[id number], 157.5, cm, 03/25/24 10:49:00 EST, Height/Length Dosing, 87.6, kg, 03/25/24 10:49:00 EST, Weight Dosing Start Date: 03/25/24 Status: Ordered Quantity: 180.0 Unit: tab(s) Repeat number: 4 24 hr metFORMIN hydrochloride 500 mg extended release oral tablet (20 sources) Biguanide Start: 07-26-2020 End: 12-23-2020 take 1 tablet by mouth once daily at breakfast metFORMIN (GLUCOPHAGE-XR) 500 MG extended release tablet Take 1 tablet by mouth daily (with breakfast) 30 tablet 5 07/26/2020 12/23/2020 Discontinued (LIST CLEANUP) Start: 05-05-2017 End: 11-23-2023 take 1 tablet by mouth twice daily Metformin 1,000 mg Tablet Discontinued 1000 MG PO Twice daily August 24, 2017 12:00am November 23, 2023 9:39am Misc. Devices MISC (20 sources) Start: 10-08-2021 Misc. Devices MISC Indications: Knee effusion, right , Acute pain of right knee , Imbalance Dispense one standard walker 1 each 0 10/08/2021 Active mupirocin 0.02 mg/mg nasal ointment (8 sources) RNA Synthetase Inhibitor Antibacterial Start: 12-12-2021 mupirocin (BACTROBAN NASAL) 2 % nasal ointment Indications: Nostril sore , Impetigo Take by Nasal route 2 times daily. 1 g 0 12/12/2021 Active nitrofurantoin, macrocrystals 25 mg / nitrofurantoin, monohydrate 75 mg oral capsule (2 sources) Nitrofuran Antibacterial Start: 08-11-2022 End: 08-16-2022 take 1 capsule by mouth twice daily nitrofurantoin, macrocrystal-monoh ydrate, (MACROBID) 100 MG capsule Indications: UTI symptoms Take 1 capsule by mouth 2 times daily for 5 days 10 capsule 0 08/11/2022 08/16/2022 Active Start: 06-30-2022 End: 07-07-2022 take 1 capsule by mouth twice daily nitrofurantoin, macrocrystal-monohydrate , (MACROBID) 100 MG capsule Take 1 capsule by mouth 2 times daily for 7 days 14 capsule 0 06/30/2022 07/07/2022 Active nystatin 100 unt/mg topical powder (20 sources) Polyene Antifungal Start: 07-31-2023 nystatin To p 100,000 units/g Pwdr 1 boyd, Topical, BID, 60 gram, Refill(s) 3, [facility]/pharmacy #[id number], 152, cm, 02/02/24 9:32:00 EDT, Height/Length Dosing, 85.8, kg, 02/02/24 9:42:00 EDT, Weight Dosing Start Date: 02/02/24 Status: Ordered Quantity: 60.0 Unit: g Repeat number: 4 Start: 12-23-2022 nystatin Top 1 00,000 units/g Pwdr 1 boyd, Topical, BID, 60 gram, Refill(s) 1, [facility] #[id number], 152, cm, 12/23/22 9:01:00 EDT, Height/Length Dosing, 93.1, kg, 12/23/22 9:01:00 EDT, Weight Dosing Start Date: 12/23/22 Status: Ordered Start: 09-17-2022 apply 1 dose topical ly twice daily Topical, 2 times daily, First dose on 6/14/23 at 2100 Apply to between legs. Start: 08-11-2022 nystatin (MYCO STATIN) 333122 UNIT/GM cream Indications: Yeast infection of the skin Apply topically in the morning and at bedtime Apply topically 2 times daily. (Rash between legs) 60 g 1 08/11/2022 Active Start: 04-17-2022 nystatin (MYCO STATIN) 855469 UNIT/GM cream Apply topically in the morning and at bedtime Apply topically 2 times daily. 60 g 1 04/17/2022 Active OLANZapine 10 mg oral tablet (20 sources) Atypical Antipsychotic Start: 11-22-2020 take 20 mg by mouth once daily 20 mg, Oral, NIGHTLY, First dose on Nia 11/22/20 at 2100 Start: 06-28-2020 take 1 tablet by paloma th at bedtime OLANZapine (ZYPREXA) 20 MG tablet TAKE 1 TABLET BY MOUTH AT BEDTIME 0 06/28/2020 Active Start: 08-24-2017 End: 11-23-2023 take 1 tablet by mouth at bedtime Olanzapine 15 mg tablet Discontinued 15 MG PO Bedtime August 24, 2017 12:00am November 23, 2023 9:39am Start: 05-04-2017 take 1 tablet by paloma th once daily at bedtime olanzapine 5 mg oral tablet 5 mg = 1 tab(s), Oral, Once a day (at bedtime), Refills(s) 0 Start Date: 05/04/17 Status: Ordered ondansetron 4 mg oral tablet (20 sources) Serotonin-3 Receptor Antagonist Start: 08-11-2023 take 1 tablet by mouth every eight hours as needed for nausea Zofran 4 mg Tab 4 mg = 1 tab(s), Oral, q8hr, PRN Nausea/Vomiting, # 20 tab(s), Refills(s) 0, Pharmacy: [facility] #[id number], 165, cm, 08/11/23 10:05:00 EDT, Height/Length Dosing, 92.9, kg, 08/11/23 10:05:00 EDT, Weight Dosing Start Date: 08/11/23 Status: Ordered Quantity: 20.0 Unit: tab(s) Repeat number: 1 Start: 11-21-2020 End: 11-21-2020 ondansetron (ZOFRAN) injecti on 4 mg ondansetron (ZOFRAN-ODT) disintegrating tablet 4 mg (2 sources) Start: 09-17-2022 ondansetron (Z OFRAN-ODT) disintegrating tablet 4 mg Start: 11-22-2020 ondansetron (Z OFRAN-ODT) disintegrating tablet 4 mg phenazopyridine hydrochloride 100 mg oral tablet (1 source) Start: 09-18-2022 End: 09-21-2022 phenazopyridine (PYRIDIUM) tablet 100 mg polyethylene glycol 3350 82073 mg powder for oral solution (3 sources) Osmotic Laxative Start: 04-02-2023 End: 03-27-2024 polyethylene glycol (GLYCOLAX) 17 GM/SCOOP powder Indications: Other constipation Take 17 g by mouth daily 1530 g 3 04/02/2023 03/27/2024 Active Start: 09-17-2022 17 g, Oral, DA PHANI PRN, Starting on Thu09/17/22 at 2018, Until Discontinued, Constipation First line therapy for constipation Start: 11-22-2020 polyethylene g lycol (GLYCOLAX) packet 17 g primidone 50 mg oral tablet (11 sources) Anti-epileptic Agent Start: 11-22-2020 End: 01-15-2021 take 50 mg by mouth twice daily 50 mg, Oral, 2 TIMES DAILY, First dose on Thu11/22/20 at 1015 24 hr propranolol hydrochloride 120 mg extended release oral capsule (20 sources) beta-Adrenergic Shruthi Start: 11-23-2023 take 1 capsule by mouth once daily Propranolol 120 mg capsule,extended release 24 hr Active 120 MG PO Daily November 23, 2023 12:00am Start: 11-23-2023 take 1 capsule by mo [facility] once daily Propranolol 120 mg capsule,extended release 24 hr Active 120 MG PO Daily November 22, 2023 11:00pm Start: 11-23-2023 take 120 mg by mouth once daily Propranolol Active 120 MG PO Daily November 22, 2023 11:00pm Start: 09-17-2022 take 120 mg by mouth once daily 120 mg, Oral, DAILY, First dose on Thu09/17/22 at 2045, Until Discontinued Do not crush or break. Start: 11-22-2020 take 120 mg by mouth once daily 120 mg, Oral, DAILY, First dose on Thu21 at 1015 Do not crush or break. Start: 07-04-2020 take 1 capsule by mo uth once daily propranolol 120 mg Cap-ER See Instructions, TAKE 1 CAPSULE BY MOUTH EVERY DAY, # 90 cap(s), Refills(s) 3, Pharmacy: [facility]/pharmacy #[id number], 157.5, cm, 03/25/24 10:49:00 EST, Height/Length Dosing, 87.6, kg, 03/25/24 10:49:00 EST, Weight Dosing Start Date: 03/25/24 Status: Ordered Quantity: 90.0 Unit: cap(s) Repeat number: 4 regadenoson (LEXISCAN) injection 0.4 mg (1 source) Start: 09-18-2022 regadenoson (LEXISCAN) injection 0.4 mg rOPINIRole 0.25 mg oral tablet (20 sources) Nonergot Dopamine Agonist Start: 09-17-2022 take 0.25 mg by mouth once daily 0.25 mg, Oral, NIGHTLY, First dose on Thu09/17/22 at 2100, Until Discontinued Start: 09-05-2022 take 1 tablet by paloma once daily ropinirole 0.25 mg Tab See Instructions, TAKE 1 TABLET BY MOUTH EVERY DAY, # 90 tab(s), Refills(s) 1, Pharmacy: [facility]ORE [id number], 157.5, cm, 07/25/24 9:05:00 EDT, Height/Length Dosing, 78.7, kg, 07/25/24 9:05:00 EDT, Weight Dosing Start Date: 09/08/24 Status: Ordered Quantity: 90.0 Unit: tab(s) Repeat number: 1 semaglutide 7 mg oral tablet (20 sources) Start: 09-11-2023 take 1 tablet by mouth once daily Rybelsus 7 mg oral tablet 7 mg = 1 tab(s), Oral, Daily, take at least 30 minutes before first food, beverage, or other oral meds, # 90 tab(s), Refills(s) 3, Pharmacy: [facility]/pharmacy #[id number], 152, cm, 02/02/24 9:32:00 EDT, Height/Length Dosing, 85.8, kg, 02/02/24 9:42:00 EDT, Weight Dosing Start Date: 03/16/24 Status: Ordered Quantity: 90.0 Unit: tab(s) Repeat number: 4 Start: 08-11-2023 take 1 tablet by paloma th once daily Rybelsus 3 mg oral tablet 3 mg = 1 tab(s), Oral, Daily, take at least 30 minutes before first food, beverage, or other oral meds, # 30 tab(s), Refills(s) 0, Pharmacy: [facility] #[id number], 165, cm, 08/11/23 10:05:00 EDT, Height/Length Dosing, 92.9, kg, 08/11/23 10:05:00 EDT, Weight Dosing Start Date: 08/11/23 Status: Ordered Semaglutide (Rybelsus) 7 mg tablet (9 sources) Start: 11-23-2023 take 1 tablet by mouth once daily Semaglutide (Rybelsus) 7 mg tablet Active 7 MG PO Daily November 22, 2023 11:00pm Start: 11-23-2023 take 1 tablet by paloma th once daily Semaglutide (Rybelsus) 7 mg tablet Active 7 MG PO Daily November 23, 2023 12:00am simvastatin 20 mg oral tablet (20 sources) HMG-CoA Reductase Inhibitor Start: 01-28-2021 simvastatin (ZOCOR) 20 MG tablet 1 tablet in the evening 90 tablet 1 01/28/2021 Active Start: 07-26-2020 simvastatin (Z OCOR) 20 MG tablet 1 tablet in the evening 90 tablet 1 07/26/2020 Active Start: 05-04-2017 End: 11-23-2023 take 1 tablet by mouth once daily in the evening Simvastatin 10 mg tablet Discontinued 10 MG PO Every evening August 24, 2017 12:00am November 23, 2023 9:39am 1000 ml sodium chloride 9 mg/ml injection (10 sources) Start: 09-17-2022 IntraVENous, a t 100 mL/hr, CONTINUOUS, Starting on Thu09/17/22 at 5 Start: 09-17-2022 IntraVENous, a t 5-250 mL/hr, PRN, if patient receiving piggyback infusions and maintenance fluids are not ordered OR KVO fluids to protect IV site / prevent frequent line interruptions/ long duration, Starting on Thu09/17/22 at 2018 For piggyback infusion, administer at same rate as piggyback for a total of 25 mL. Enter 25 mL into dose field and piggyback rate into rate field of order. If piggyback is infusing at a rate less than 100 mL/hr, enter 25 mL into dose field and 100 mL/hr into rate field of order. For KVO fluids, enter rate of 20 mL/hr or less into rate field of order. Start: 09-17-2022 take 1 dose intraven ously twice daily 5-40 mL, IntraVENous, EVERY 12 HOURS SCHEDULED (2 times per day), First dose on Thu09/17/22 at 2100, Until Discontinued For Line Patency: Peripheral IV = 5 mL; Midline or Central Line = 10 mL/lumen. If following IV push medication, administer flush at same rate as the IV push. Flush volume is determined by type of infusion therapy being given. For non-viscous solutions use: Peripheral IV = 5 mL Midline or Central Line = 10 mL/lumen For viscous solutions (i.e. blood components, parenteral nutrition, contrast media, or after obtaining blood sample) use: Peripheral IV = 10 mL Midline or Central Line = 20 mL/lumen Start: 09-17-2022 take 5-40 mL intrave nously once as needed 5-40 mL, IntraVENous, PRN, Starting on Thu09/17/22 at 2018, Until Discontinued, Line Care, After every IV line use For Line Patency: Peripheral IV = 5 mL; Midline or Central Line = 10 mL/lumen. If following IV push medication, administer flush at same rate as the IV push. Flush volume is determined by type of infusion therapy being given. For non-viscous solutions use: Peripheral IV = 5 mL Midline or Central Line = 10 mL/lumen For viscous solutions (i.e. blood components, parenteral nutrition, contrast media, or after obtaining blood sample) use: Peripheral IV = 10 mL Midline or Central Line = 20 mL/lumen Start: 11-22-2020 sodium chlorid e flush 0.9 % injection 5-40 mL Start: 11-21-2020 0.9 % sodium c hloride infusion Start: 11-21-2020 End: 11-21-2020 0.9 % sodium chloride bolus Start: 10-25-2020 End: 10-25-2020 0.9 % sodium chloride bolus sulfamethoxazole 800 mg / trimethoprim 160 mg oral tablet (2 sources) Dihydrofolate Reductase Inhibitor Antibacterial, Sulfonamide Antimicrobial Start: 10-23-2020 End: 10-30-2020 take 1 tablet by mouth twice daily sulfamethoxazole-trimethoprim (BACTRIM DS;SEPTRA DS) 800-160 MG per tablet Take 1 tablet by mouth 2 times daily for 7 days 14 tablet 0 10/23/2020 10/30/2020 Active tamsulosin hydrochloride 0.4 mg oral capsule (7 sources) alpha-Adrenergic Shruthi Start: 09-19-2022 take 1 capsule by mouth once daily tamsulosin (FLOMAX) 0.4 MG capsule Take 1 capsule by mouth daily 30 capsule 3 09/19/2022 Active Start: 09-18-2022 tamsulosin (FL OMAX) capsule 0.4 mg traMADol hydrochloride 50 mg oral tablet (1 source) Opioid Agonist Start: 09-25-2021 End: 10-02-2021 take 1 tablet by mouth every eight hours as needed for pain traMADol (ULTRAM) 50 MG tablet Indications: Effusion of right knee Take 1 tablet by mouth every 8 hours as needed for Pain for up to 7 days. 20 tablet 0 09/25/2021 10/02/2021 Active traZODone hydrochloride 50 mg oral tablet (20 sources) Serotonin Reuptake Inhibitor Start: 01-04-2024 take 1 tablet by mouth once daily at bedtime traZODONE 50 mg Tab See Instructions, TAKE 1 TABLET BY MOUTH EVERYDAY AT BEDTIME, # 90 tab(s), Refills(s) 3, Pharmacy: [facility]/pharmacy #[id number], 157.5, cm, 03/25/24 10:49:00 EST, Height/Length Dosing, 87.6, kg, 03/25/24 10:49:00 EST, Weight Dosing Start Date: 03/25/24 Status: Ordered Quantity: 90.0 Unit: tab(s) Repeat number: 4 Start: 07-30-2021 End: 01-01-2024 take 1 tablet by mouth once Trazodone 50 mg tablet Dis continued 50 MG PO Once November 23, 2023 12:00am January 01, 2024 8:01am Completed/Discontinued Medications Medication Drug Class(es) Dates Sig (Normalized) Sig (Original) alcohol (17 sources) Start: 12-03-2023 alcohol alcoho l, See Instructions, 200 pad(s), 3, tests BID alcohol wipes, [facility] #[id number], Supply, 165, cm, 12/01/23 8:09:00 EDT, Height/Length Dosing, 85, kg, 12/01/23 8:09:00 EDT, Weight Dosing Start Date: 12/03/23 Status: Ordered Quantity: 200.0 Unit: pad(s) Repeat number: 4 Start: 12-03-2023 alcohol alcoho l, See Instructions, 200 pad(s), 3, tests BID alcohol wipes, [facility] #[id number], Supply, 165, cm, 12/01/23 8:09:00 EDT, Height/Length Dosing, 85, kg, 12/01/23 8:09:00 EDT, Weight Dosing Start Date: 12/03/23 Status: Ordered aluminum & magnesium hydroxide-simethicone (MAALOX) 30 mL, lidocaine viscous hcl (XYLOCAINE) 5 mL (GI COCKTAIL) (1 source) Start: 11-21-2020 End: 11-21-2020 aluminum & magnesium hydroxide-simethicone (MAALOX) 30 mL, lidocaine viscous hcl (XYLOCAINE) 5 mL (GI COCKTAIL) aspirin 81 mg chewable tablet (20 sources) Platelet Aggregation Inhibitor, Nonsteroidal Anti-inflammato ry Drug Start: 09-17-2022 take 162 mg by mouth once daily 162 mg, Oral, DAILY, First dose on Thu09/17/22 at 2045, Until Discontinued Start: 09-17-2022 aspirin tablet 325 mg Start: 11-22-2020 take 162 mg by mouth once kenji y 162 mg, Oral, DAILY, First dose on Nia 11/22/20 at 1015 Start: 10-25-2020 aspirin chewab le tablet 162 mg Start: 10-25-2020 take 2 tablets by mo [facility] once daily aspirin (ASPIRIN CHILDRENS) 81 MG chewable tablet Take 2 tablets by mouth daily 60 tablet 1 10/25/2020 Active Start: 10-25-2020 aspirin chewab le tablet 324 mg atropine sulfate 0.025 mg / diphenoxylate hydrochloride 2.5 mg oral tablet (10 sources) Anticholinergic, Cholinergic Muscarinic Antagonist, Antidiarrheal Start: 09-17-2022 take 1 tablet by mouth four times daily as needed 1 tablet, Oral, 4 TIMES DAILY PRN, Starting on Thu09/17/22 at 2018, Until Discontinued, Diarrhea Start: 07-30-2021 End: 09-29-2021 take 1 tablet by mouth twice daily as needed diphenoxylate-atropine (LOMOTIL) 2.5-0.025 MG per tablet Indications: Loose stools TAKE 1 TABLET BY MOUTH TWO TIMES A DAY NEEDED 60 tablet 2 07/30/2021 09/29/2021 Active Start: 09-11-2020 End: 11-11-2020 take 1 tablet by mouth twice daily as needed diphenoxylate-atropine (LOMOTIL) 2.5-0.025 MG per tablet Indications: Loose stools TAKE 1 TABLET BY MOUTH TWO TIMES A DAY NEEDED 60 tablet 2 09/11/2020 11/11/2020 Active Start: 06-15-2020 take 1 tablet by [facility] twice daily as needed diphenoxylate-atropine (LOMOTIL) 2.5-0.025 MG per tablet TAKE 1 TABLET BY MOUTH TWO TIMES A DAY NEEDED 0 06/15/2020 Active diphenoxylate-at ropine (LOMOTIL) 2.5-0.025 MG/5ML liquid Take 5 mLs by mouth 4 times daily as needed. Max Daily Amount: 20 mLs 0 Active azithromycin (ZITHROMAX) 500 mg in dextrose 5% 250 mL IVPB (1 source) Start: 11-22-2020 End: 11-24-2020 azithromycin (ZITHROMAX) 500 mg in dextrose 5% 250 mL IVPB barium sulfate 60 % cream 4.8 g (1 source) Start: 11-15-2020 End: 11-15-2020 barium sulfate 60 % cream 4.8 g barium sulfate 60 % suspension 355 mL (1 source) Start: 11-15-2020 End: 11-15-2020 barium sulfate 60 % suspension 355 mL 24 hr buPROPion hydrochloride 150 mg extended release oral tablet (15 sources) Aminoketone Start: 08-24-2017 End: 11-23-2023 take 1 tablet by mouth once daily Bupropion Hcl 150 mg tablet extended release 24 hr Discontinued 150 MG PO Daily August 24, 2017 12:00am November 23, 2023 9:44am cariprazine 3 mg oral capsule (6 sources) Atypical Antipsychotic Start: 04-19-2020 End: 10-24-2020 take 1 capsule by mouth once daily cariprazine hcl (VRAYLAR) 3 MG CAPS capsule Take 1 capsule by mouth daily 30 capsule 2 07/26/2020 10/24/2020 Discontinued (LIST CLEANUP) cefTRIAXone (ROCEPHIN) 1,000 mg in sodium chloride 0.9 % 50 mL IVPB (mini-bag) (1 source) Start: 09-17-2022 1,000 mg, IntraVENous, EVERY 24 HOURS, First dose on Thu09/17/22 at 2045, Until Discontinued Antimicrobial Indications: Urinary Tract Infection UTI duration of therapy: 5 days cefTRIAXone (ROCEPHIN) 1000 mg IVPB in 50 mL D5W minibag (1 source) Start: 11-22-2020 End: 11-24-2020 cefTRIAXone (ROCEPHIN) 1000 mg IVPB in 50 mL D5W minibag celecoxib 100 mg oral capsule (20 sources) Nonsteroidal Anti-inflammatory Drug Start: 09-22-2023 End: 12-30-2023 take 1 capsule by mouth once daily Celecoxib 100 mg capsule Discontinued 100 MG PO Daily November 23, 2023 12:00am December 30, 2023 6:35am cholecalciferol 0.125 mg oral tablet (15 sources) Vitamin D Start: 08-24-2017 End: 11-23-2023 take 1 tablet by mouth once daily Cholecalciferol (Vitamin D3) (Vitamin D3) 5,000 unit Tablet Discontinued 5000 UNITS PO Daily August 24, 2017 12:00am November 23, 2023 9:37am 2 ml famotidine 10 mg/ml injection (1 source) Histamine-2 Receptor Antagonist Start: 11-21-2020 End: 11-21-2020 famotidine (PEPCID) injection 20 mg Start: 11-21-2020 End: 11-21-2020 famotidine (PEPCID) injectio n 20 mg FLUoxetine 20 mg oral capsule (16 sources) Serotonin Reuptake Inhibitor Start: 05-04-2017 End: 12-30-2023 take 1 capsule by mouth twice daily Fluoxetine 20 mg Capsule Discontinued 20 MG PO Twice daily August 24, 2017 12:00am December 30, 2023 6:36am furosemide 20 mg oral tablet (7 sources) Loop Diuretic Start: 01-01-2021 End: 01-15-2021 take 1 tablet by mouth once daily furosemide (LASIX) 20 MG tablet Take 1 tablet by mouth daily 3 tablet 0 01/01/2021 01/15/2021 Discontinued (LIST CLEANUP) Start: 12-23-2020 End: 01-15-2021 take 0.5 tablet by mouth once daily furosemide (LASIX) 20 MG tablet Take 0.5 tablets by mouth daily 5 tablet 0 12/23/2020 01/15/2021 Discontinued (LIST CLEANUP) glucagon (rdna) 1 mg injection (2 sources) Antihypoglycemic Agent Start: 09-17-2022 inject 1 mg by subcutaneous injection every hour as needed 1 mg, SubCUTAneous, PRN, Starting on Thu09/17/22 at 2017, Until Discontinued, Low blood sugar, Blood glucose LESS THAN 70 mg/dL and patient NOT ALERT or NPO and does not have IV access. After administration, attempt intravenous access and start dextrose 10% at 100 mL/hr. Repeat blood glucose in 15 minutes x 2 and notify provider. Start: 11-22-2020 glucagon (rDNA ) injection 1 mg 1000 ml glucose 50 mg/ml / sodium chloride 9 mg/ml injection (1 source) Start: 09-17-2022 End: 09-17-2022 dextrose 5 % and 0.9 % nacl bolus 250 ml heparin sodium, porcine 100 unt/ml injection (3 sources) Unfractionated Heparin, Anti-coagulant Start: 11-21-2020 End: 11-24-2020 heparin 25,000 units in dextrose 5% 250 mL (premix) infusion Start: 11-21-2020 End: 11-21-2020 heparin (porcine) injection 7,540 Units insulin lispro 100 unt/ml injectable solution (4 sources) Insulin Analog Start: 09-18-2022 0-4 Units, Sub CUTAneous, 3 TIMES DAILY WITH MEALS, First dose on Thu09/18/22 at 0800, Until Discontinued Corrective Low Dose Algorithm Glucose: Dose: 70-199 No Insulin 200-249 1 Unit 250-299 2 Units 300-349 3 Units Over 349 4 Units and notify physician Start: 09-17-2022 0-4 Units, Sub CUTAneous, NIGHTLY, First dose on Thu09/17/22 at 2100, Until Discontinued If continuous tube feedings/TPN/NPO, give correction dose based on result, no reduction in dose. If eating or bolus tube feeding: Corrective Bedtime Algorithm Glucose: Dose: 70-299 No Insulin 300-349 4 Units Over 349 4 Units and notify physician Start: 11-22-2020 insulin lispro (HUMALOG) injection vial 0-6 Units iopamidol (ISOVUE-370) 76 % injection 100 mL (3 sources) Start: 08-15-2021 End: 08-15-2021 iopamidol (ISOVUE-370) 76 % injection 100 mL Start: 11-21-2020 End: 11-21-2020 iopamidol (ISOVUE-370) 76 % injection 100 mL Start: 10-24-2020 End: 10-25-2020 iopamidol (ISOVUE-370) 76 % injection 100 mL iopamidol (ISOVUE-370) 76 % injection 75 mL (1 source) Start: 11-21-2020 End: 11-21-2020 iopamidol (ISOVUE-370) 76 % injection 75 mL 1 ml ketorolac tromethamine 30 mg/ml cartridge (2 sources) Nonsteroidal Anti-inflammatory Drug, Cyclooxygenase Inhibitor Start: 09-25-2021 End: 09-25-2021 ketorolac (TORADOL) injection 30 mg Start: 11-21-2020 End: 11-21-2020 ketorolac (TORADOL) injectio n 30 mg 100 ml levoFLOXacin 5 mg/ml injection (1 source) Quinolone Antimicrobial Start: 11-21-2020 End: 11-21-2020 levoFLOXacin (LEVAQUIN) 500 MG/100ML infusion 500 mg 10 ml lidocaine hydrochloride 10 mg/ml injection (1 source) Antiarrhythmic, Amide Local Anesthetic Start: 2020 End: 2020 lidocaine PF 1 % injection linagliptin 5 mg oral tablet (16 sources) Dipeptidyl Peptidase 4 Inhibitor Start: 06-23-2016 End: 11-23-2023 take 1 tablet by mouth once daily Linagliptin (Tradjenta) 5 mg tablet Discontinued 5 MG PO Daily August 24, 2017 12:00am November 23, 2023 9:38am losartan potassium 25 mg oral tablet (20 sources) Angiotensin 2 Receptor Shruthi Start: 05-04-2017 End: 11-23-2023 take 1 tablet by mouth once daily Losartan 25 mg tablet Discontinued 25 MG PO Daily August 24, 2017 12:00am November 23, 2023 9:39am 24 hr mirabegron 25 mg extended release oral tablet (20 sources) beta3-Adrenergic Agonist Start: 11-23-2023 End: 12-30-2023 take 1 tablet by mouth once daily Mirabegron (Myrbetriq) 25 mg tablet extended release 24 hr Discontinued 25 MG PO Daily November 23, 2023 12:00am December 30, 2023 6:38am Start: 10-02-2022 take 1 tablet by paloma th once daily Myrbetriq 50 mg oral tablet, extended release 50 mg = 1 tab(s), Oral, Daily, # 90 tab(s), Refills(s) 1, Pharmacy: [facility] #[id number], 157, cm, 06/22/23 8:55:00 EDT, Height/Length Dosing, 93.4, kg, 06/22/23 8:55:00 EDT, Weight Dosing Start Date: 06/22/23 Status: Ordered Myrbetriq 50 MG 24 hr tablet Active naproxen 500 mg oral tablet (15 sources) Nonsteroidal Anti-inflammatory Drug Start: 08-24-2017 End: 11-23-2023 take 1 tablet by mouth twice daily at mealtime Naproxen (Naprosyn) 500 mg tablet Discontinued 500 MG PO Twice daily August 24, 2017 12:00am November 23, 2023 9:39am administer with food or milk microencapsulated potassium chloride 20 meq extended release oral tablet (5 sources) Start: 12-23-2020 End: 01-15-2021 take 1 tablet by mouth once daily potassium chloride (KLOR-CON M) 20 MEQ extended release tablet Take 1 tablet by mouth daily 10 tablet 0 12/23/2020 01/15/2021 Discontinued (LIST CLEANUP) Start: 11-22-2020 potassium chlo ride (KLOR-CON M) extended release tablet 40 mEq QUEtiapine 100 mg oral tablet (20 sources) Atypical Antipsychotic Start: 08-24-2017 End: 11-23-2023 take 1 tablet by mouth twice daily Quetiapine 100 mg tablet Discontinued 100 MG PO Twice daily August 24, 2017 12:00am November 23, 2023 9:39am Start: 05-04-2017 take 1 tablet by paloma th once daily at bedtime Seroquel 300 mg oral tablet 300 mg = 1 tab(s), Oral, Once a day (at bedtime), Refills(s) 0 Start Date: 05/04/17 Status: Ordered sertraline 100 mg oral tablet (7 sources) Serotonin Reuptake Inhibitor Start: 05-21-2020 End: 11-21-2020 sertraline (ZOLOFT) 100 MG tablet TAKE 1 & 1/2 TABLET BY MOUTH ONCE DAILY 0 05/21/2020 11/21/2020 Discontinued (LIST CLEANUP) solifenacin succinate 5 mg oral tablet (4 sources) Cholinergic Muscarinic Antagonist Start: 05-09-2022 End: 05-09-2023 take 1 tablet by mouth once daily solifenacin (VESICARE) 5 MG tablet Take 1 tablet by mouth daily 90 tablet 0 09/05/2022 09/18/2022 Discontinued (Stop Taking at Discharge) technetium sestamibi (CARDIOLITE) injection 10 millicurie (1 source) Start: 09-18-2022 End: 09-18-2022 technetium sestamibi (CARDIOLITE) injection 10 millicurie technetium sestamibi (CARDIOLITE) injection 30 millicurie (1 source) Start: 09-18-2022 End: 09-18-2022 technetium sestamibi (CARDIOLITE) injection 30 millicurie triamcinolone acetonide 0.25 mg/ml topical cream (20 sources) Corticosteroid Start: 06-22-2023 triamcinolone Top 0.025% Crm See Instructions, 60 gm, Refill(s) 0, apply 1-2 times a day, [facility] #[id number], 157, cm, 06/22/23 8:55:00 EDT, Height/Length Dosing, 93.4, kg, 06/22/23 8:55:00 EDT, Weight Dosing Start Date: 06/22/23 Status: Ordered Quantity: 60.0 Unit: g Repeat number: 1 Start: 12-23-2022 triamcinolone Top 0.025% Crm See Instructions, Refill(s) 0, apply 1-2 times a day Start Date: 12/23/22 Status: Ordered Start: 09-11-2021 triamcinolone (KENALOG) 0.025 % cream Apply Topically 1-2 times per day as needed for the dry skin 60 g 1 09/11/2021 Active Start: 09-21-2017 Kenalog -40 mg 18 Sep, 2017 10 mg trospium chloride 20 mg oral tablet (1 source) Cholinergic Muscarinic Antagonist Start: 09-17-2022 End: 09-18-2022 take 20 mg by mouth once daily 20 mg, Oral, NIGHTLY, First dose on Thu09/17/22 at 2100, Until Discontinued Substituted for Solifenacin (VESICARE). 24 hr venlafaxine 225 mg extended release oral tablet (16 sources) Serotonin and Norepinephrine Reuptake Inhibitor Start: 08-24-2017 End: 11-23-2023 take 1 tablet by mouth once daily in the evening Venlafaxine 225 mg tablet extended release 24hr Discontinued 225 MG PO Every evening August 24, 2017 12:00am November 23, 2023 9:39am Start: 04-05-2011 take 3 tablets by mo [facility] at bedtime Effexor 75 mg Tab 225 mg = 3 tab(s), Oral, Bedtime, Refills(s) 0 Start Date: 04/05/11 Status: Ordered Problems Active Problems Problem Classification Problem Date Documented Date Episodic/Chronic Abdominal pain (1 source) Left upper quadrant pain; Translations: [Left upper quadrant pain] Episodic Acute cerebrovascular disease (20 sources) Cerebrovascular accident; Translations: [Cerebral infarction, unspecified] Onset: Chronic Administrative/social admission (1 source) Counseling procedure with explicit context; Translations: [Dietary counseling and surveillance] Episodic Anxiety disorders (20 sources) Anxiety; Translations: [Generalized anxiety disorder] Onset: 4 06-17-2013 Chronic Cardiac dysrhythmias (1 source) Tachycardia; Translations: [Tachycardia, unspecified] Episodic Chronic kidney disease (20 sources) Chronic kidney disease stage 3; Translations: [Chronic kidney disease, stage 3 (moderate)] Onset: 3 Chronic Comment on above: added per 03/19/2023 query response. Chronic kidney disease (12 sources) Chronic kidney disease; Translations: [Chronic kidney disease, stage III (moderate)] Onset: 2 Resolved: 2 Coagulation and hemorrhagic disorders (6 sources) Thrombophilia; Translations: [Other primary thrombophilia] Onset: 3 11-17-2022 Chronic Diabetes mellitus with complications (20 sources) Type II diabetes mellitus uncontrolled; Translations: [Type II diabetes mellitus, uncontrolled] Onset: 2 Resolved: 2 Chronic Diabetes mellitus with complications (1 source) Diabetes mellitus with complications Onset: 8 Diabetes mellitus without complication (20 sources) Type 2 diabetes mellitus without complication; Translations: [Type 2 diabetes mellitus without complications] Onset: 1 Chronic Comment on above: linked DM with HLD p er OP CDI policy. linked DM with CKD p er OP CDI policy. Diabetes mellitus without complication (1 source) Hyperglycemia; Translations: [Hyperglycemia, unspecified] Onset: 4 Episodic Disorders of lipid metabolism (20 sources) Hyperlipidemia; Translations: [Hyperlipidemia, unspecified] Onset: 3 Chronic Comment on above: noted in 12/24/2021 [facility] Care Records page 11. added per OP CDI policy. E Codes: Fall (2 sources) Accidental fall ; Translations: [Unspecified fall, initial encounter] Episodic Essential hypertension (20 sources) Essential hypertension; Translations: [Essential (primary) hypertension] Onset: 1 Chronic Comment on above: noted in 12/24/2021 [facility] Care Records page 11. added per OP CDI policy. Essential hypertension (1 source) Essential hypertension Onset: 8 Genitourinary symptoms and ill-defined conditions (20 sources) Urge incontinence of urine; Translations: [Urge incontinence] Onset: 3 Chronic Comment on above: noted in 12/24/2021 [facility] Care Records page 11. added per OP CDI policy. Genitourinary symptoms and ill-defined conditions (20 sources) Bacteriuria; Translations: [Increased frequency of urination] Onset: 2 Resolved: 2 Episodic Hypertension with complications and secondary hypertension (20 sources) Hypertensive renal disease; Translations: [Hypertensive chronic kidney disease with stage 1 through stage 4 chronic kidney disease, or unspecified chronic kidney disease] Onset: 2 Resolved: 2 Chronic Comment on above: noted in 06/08/2024 Nephrology Consult Note page 6. added per OP CDI policy. Immunizations and screening for infectious disease (2 sources) Vaccination given; Translations: [Encounter for immunization] Onset: 4 Episodic Malaise and fatigue (1 source) Fatigue; Translations: [Other fatigue] Onset: 4 Episodic Menopausal disorders (1 source) Ovarian failure; Translations: [Other primary ovarian failure] Chronic Mood disorders (20 sources) Bipolar disorder; Translations: [Bipolar disorder, unspecified] Onset: 1 Chronic Mycoses (3 sources) Candidal paronychia ; Translations: [Candidiasis of skin and nail] Onset: 4 Episodic Nutritional deficiencies (20 sources) Vitamin D deficiency; Translations: [Vitamin D deficiency, unspecified] Onset: 2 Resolved: 2 Chronic Comment on above: noted in 06/08/2024 Nephrology Consult Note page 6. added per OP CDI policy. Osteoarthritis (20 sources) Osteoarthritis of left knee joint; Translations: [Unilateral primary osteoarthritis, left knee] 01-12-2024 Chronic Other aftercare (1 source) Long-term current use of anticoagulant; Translations: [[facility] (current) use of anticoagulants] Episodic Other aftercare (4 sources) Long-term current use of insulin; Translations: [[facility] (current) use of insulin] Onset: 3 Episodic Other aftercare (1 source) Long-term current use of drug therapy; Translations: [Other [facility] (current) drug therapy] Onset: 5 Episodic Other connective tissue disease (1 source) Swelling of lower limb; Translations: [Other specified soft tissue disorders] Episodic Other connective tissue disease (1 source) Infrapatellar bursitis of left knee; Translations: [Other bursitis of knee, left knee] Episodic Other connective tissue disease (1 source) Enthesopathy; Translations: [Other enthesopathies, not elsewhere classified] Onset: 4 Episodic Other connective tissue disease (20 sources) Tendinitis of hand 09-22-2023 Episodic Other connective tissue disease (1 source) Spasm; Translations: [Cramp and spasm] Onset: 4 Episodic Other connective tissue disease (1 source) Pain in finger of right hand; Translations: [Pain in right finger(s)] Onset: 4 Episodic Other connective tissue disease (4 sources) Hand pain; Translations: [Pain in right hand] 05-03-2024 Episodic Other connective tissue disease (4 sources) Pain in right hand; Translations: [Pain in limb] 05-03-2024 Episodic Other connective tissue disease (2 sources) Pain of toe of right foot; Translations: [Pain in right toe(s)] 10-14-2024 Episodic Other connective tissue disease (2 sources) Pain of toe of left foot; Translations: [Pain in left toe(s)] 10-14-2024 Episodic Other connective tissue disease (2 sources) Pain in right hand; Translations: [Pain in right hand] 05-03-2024 Episodic Other diseases of kidney and ureters (16 sources) Secondary hyperparathyroidism; Translations: [Secondary hyperparathyroidism of renal origin] 11-23-2023 Chronic Other diseases of kidney and ureters (14 sources) Secondary hyperparathyroidism of renal origin; Translations: [Secondary hyperparathyroidism (of renal origin)] Onset: 2 Resolved: 2 Chronic Other diseases of kidney and ureters (1 source) Hyperparathyroidism due to renal insufficiency 11-21-2024 Chronic Comment on above: noted in 06/08/2024 Nephrology Consult Note page 6. added per OP CDI policy. Other diseases of kidney and ureters (6 sources) Kidney disease; Translations: [Disorder of kidney and ureter, unspecified] Episodic Other endocrine disorders (1 source) Hypoglycemia; Translations: [Hypoglycemia, unspecified] Chronic Other gastrointestinal disorders (1 source) Dysphagia; Translations: [Other dysphagia] Episodic Other hereditary and degenerative nervous system conditions (4 sources) Essential tremor 07-25-2024 Chronic Other injuries and conditions due to external causes (1 source) Injury of upper extremity; Translations: [Unspecified injury of left wrist, hand and finger(s), initial encounter] Onset: 5 Episodic Other lower respiratory disease (6 sources) Dyspnea on exertion; Translations: [Dyspnea on effort] Episodic Other lower respiratory disease (1 source) Snoring; Translations: [Snoring] Onset: 4 Episodic Other nervous system disorders (6 sources) Neuropathy; Translations: [Neuropathy] Chronic Other non-traumatic joint disorders (1 source) Effusion of right knee joint; Translations: [Effusion, right knee] Episodic Other non-traumatic joint disorders (1 source) Pain in right knee; Translations: [Pain in joint, lower leg] Episodic Other non-traumatic joint disorders (1 source) Knee joint effusion; Translations: [Effusion, left knee] Onset: 4 Episodic Other nutritional; endocrine; and metabolic disorders (20 sources) Severe obesity; Translations: [Morbid (severe) obesity due to excess calories] Onset: 1 Chronic Other nutritional; endocrine; and metabolic disorders (6 sources) Simple obesity ; Translations: [Other obesity due to excess calories] Chronic Other nutritional; endocrine; and metabolic disorders (14 sources) Obesity; Translations: [Obesity, unspecified] Onset: 4 Chronic Other nutritional; endocrine; and metabolic disorders (12 sources) Obese class II; Translations: [Body mass index (BMI) 35.0-35.9, adult] Onset: 3 Chronic Other nutritional; endocrine; and metabolic disorders (20 sources) Morbid obesity; Translations: [Morbid (severe) obesity due to excess calories] Onset: 3 Chronic Comment on above: added per 03/19/2023 query response. Other nutritional; endocrine; and metabolic disorders (20 sources) Body mass index 30+ - obesity 03-24-2023 Chronic Other nutritional; endocrine; and metabolic disorders (11 sources) Hypomagnesemia; Translations: [Hypomagnesemia] 11-23-2023 Chronic Other nutritional; endocrine; and metabolic disorders (9 sources) Hypomagnesemia; Translations: [Disorders of magnesium metabolism] Onset: 4 Chronic Other nutritional; endocrine; and metabolic disorders (8 sources) Obese class I; Translations: [Body mass index (BMI) 34.0-34.9, adult] Onset: 4 Chronic Other nutritional; endocrine; and metabolic disorders (17 sources) Obesity caused by energy imbalance 09-22-2023 Chronic Other nutritional; endocrine; and metabolic disorders (10 sources) Hyperuricemia; Translations: [Hyperuricemia without signs of inflammatory arthritis and tophaceous disease] 11-23-2023 Episodic Other screening for suspected conditions (not mental disorders or infectious disease) (4 sources) Abnormal electrocardiogram [ECG] [EKG]; Translations: [Measurement finding above reference range] Onset: 8 12-29-2022 Episodic Other skin disorders (6 sources) Scab of skin; Translations: [Scab] Episodic Other upper respiratory disease (6 sources) Allergic rhinitis; Translations: [Allergic rhinitis, unspecified] Chronic Other upper respiratory infections (14 sources) Viral upper respiratory tract infection; Translations: [Acute upper respiratory infection, unspecified] Onset: 5 Episodic Peripheral and visceral atherosclerosis (6 sources) Intermittent claudication; Translations: [Claudication, intermittent] Chronic Pneumonia (except that caused by tuberculosis or sexually transmitted disease) (1 source) Infective pneumonia; Translations: [Pneumonia, unspecified organism] Episodic Residual codes; unclassified (1 source) Sleep apnea; Translations: [Sleep apnea, unspecified] Onset: 4 Chronic Residual codes; unclassified (14 sources) Obstructive sleep apnea syndrome; Translations: [Obstructive sleep apnea (adult) (pediatric)] Onset: 4 Chronic Residual codes; unclassified (1 source) Edema of lower extremity; Translations: [Localized edema] Episodic Residual codes; unclassified (6 sources) Intermittent pain; Translations: [Pain, intermittent] Episodic Residual codes; unclassified (1 source) Confusional state; Translations: [Disorientation, unspecified] Episodic Residual codes; unclassified (1 source) Patient encounter status; Translations: [Other specified health status] Onset: 5 Episodic Screening and history of mental health and substance abuse codes (20 sources) Ex-smoker; Translations: [H/O: Disorder] Onset: 4 12-23-2022 Episodic Sprains and strains (2 sources) Strain of hamstring tendon; Translations: [Strain of other muscle(s) and tendon(s) at lower leg level, unspecified leg, initial encounter] Onset: 4 09-29-2023 Episodic Substance-related disorders (20 sources) Smoker 06-23-2016 Chronic Comment on above: Added secondary to d ocumentation in Social History. Suicide and intentional self-inflicted injury (18 sources) Suicidal thoughts; Translations: [Suicidal ideations] Onset: 4 Episodic Thyroid disorders (20 sources) Acquired hypothyroidism; Translations: [Hypothyroidism, unspecified] Onset: 1 Chronic Unclassified (2 sources) Abnormal electrocardiogram [ECG] [EKG] / R94.31(ICD-9) Onset: 8 Unclassified (1 source) Other fatigue / R53.83(ICD-9) Onset: 8 Unclassified (1 source) Shortness of breath / R06.02(ICD-9) Onset: 8 Unclassified (1 source) Ventricular premature depolarization / I49.3(ICD-9) Onset: 8 Unclassified (20 sources) Long-term current use of insulin 03-19-2023 Comment on above: Current Medication L ist includes Basaglar. added per OP CDI policy. Unclassified (20 sources) Effusion of joint of left knee 09-22-2023 Unclassified (9 sources) Patient encounter status 03-25-2024 Unclassified (1 source) Injury of left hand 11-22-2024 Urinary tract infections (1 source) Urinary tract infectious disease; Translations: [Urinary tract infection, site not specified] Episodic Past or Other Problems Problem Classification Problem Date Documented Date Episodic/Chronic Lymphadenitis (20 sources) Axillary lymphadenopathy; Translations: [Localized enlarged lymph nodes] Onset: 07-11-2021 07-11-2021 Episodic Nonspecific chest pain (6 sources) Precordial pain; Translations: [Precordial pain] Onset: 09-17-2022 Episodic Nutritional deficiencies (18 sources) Folic acid deficiency; Translations: [Deficiency of other specified B group vitamins] Onset: 01-02-2022 01-02-2022 Episodic Other nervous system disorders (2 sources) Other symbolic dysfunctions; Translations: [Other symbolic dysfunctions] Onset: 11-26-2022 Episodic Other nutritional; endocrine; and metabolic disorders (13 sources) Hyperuricemia without signs of inflammatory arthritis and tophaceous disease; Translations: [Other abnormal blood chemistry] Onset: 09-24-2021 Resolved: 09-24-2021 Episodic Other nutritional; endocrine; and metabolic disorders (20 sources) Weight loss; Translations: [Abnormal weight loss] Onset: 11-18-2021 Episodic Pulmonary heart disease (20 sources) Acute pulmonary embolism; Translations: [Other pulmonary embolism without acute cor pulmonale] Onset: 11-21-2020 Episodic Unclassified (6 sources) Screening status; Translations: [Special screening for malignant neoplasm of colon] Unclassified (1 source) Onset: 06-30-2022 06-30-2022 Unclassified (2 sources) Obese class II; Translations: [Obesity, class 2] Onset: 03-25-2024 Results Test Name Value Interpretation Reference Range Facil ity .Interpretation:on Interpretation: Comment Invalid Interpretation Code [facility] Comment on above: Result Comment: Not infected with HCV unless early or acute infection is suspected (which may be delayed in an immunocompromised individual), or other evidence exists to indicate HCV infection. Performed at: [facility] [address] [id number] PhD Violette Turner Performed By: #### [id number] #### [facility] [address] [place] [address] HCV Antibody RFX to Quant PC Rashel 11-24-2024 HCV Ab Non-Reactive Invalid Interpretation Code Non Reactive [facility] Comment on above: Result Comment: Perf ormed at: [facility] [address] [id number] PhD Violette Turner Performed By: #### [id number] #### [facility] [address] [place] [address] Ambulatory Visit Summaryon 0 8-19-2025 Ambulatory Visit Summary Ambulatory Visit Summary SABINA CANELA :1950 Visit Date:11/22/2024 Ambulatory Visit Instructions Your Diagnosis Type 2 diabetes mellitus with stage 3a chronic kidney disease Primary hypertension Stage 3a chronic kidney disease (CKD) Moderate depressive disorder Injury of left hand Class 1 obesity due to excess calories in adult BMI 30.0-30.9,adult Never used tobacco Medication management Screening for viral disease Your Care Team Attending Physician - Lupillo MSN, APPLE PACKING HEADER-Loreta NAVA Primary Care Physician - Lupillo MSN, APPLE PACKING HEADER-ACTIVITY THERAPISTLoreta This Is Your Medications List atorvastatin (atorvastatin 40 mg Tab) Contact prescribing physician if questions or concerns Misc Prescription (32 gauge pen needle 4 mm) Misc Prescription (Alcohol swabs, Kinde, band-aids) Misc Prescription (Glucometer) Misc Prescription (Lancet #100) Misc Prescription (Test Strips) Misc Prescription (alcohol) Misc Prescription (lancets) amlodipine (amLODIPine 5 mg Tab) aripiprazole (Abilify 5 mg Tab) ergocalciferol (ergocalciferol 50,000 intl units Cap) escitalopram (Lexapro 10 mg Tab) folic acid (folic acid 1 mg Tab) glimepiride (glimepiride 4 mg Tab) insulin glargine (Basaglar KwikPen 100 units/mL subcutaneous solution) ketoconazole topical (ketoconazole Top 2% Crm) levothyroxine (levothyroxine 75 mcg (0.075 mg) Tab) memantine (Namenda 10 mg oral tablet) nystatin topical (nystatin Top 100,000 units/g Pwdr) propranolol (propranolol 120 mg Cap-ER) ropinirole (ropinirole 0.25 mg Tab) semaglutide (Rybelsus 7 mg oral tablet) trazodone (traZODONE 50 mg Tab) triamcinolone topical (triamcinolone Top 0.025% Crm) Procedures Performed Tubal ligation. Discharge Vitals Heart Rate (Peripheral) 64 Respiratory Rate 18 Blood Pressure 130/78 Height 62 in Height 157.5 cm Weight 75.0 kg Weight 165.347 lb BMI 30.23 What to do next Scheduled Follow-Up Appointments Thursday 8:00 AM EST With: Where: [facility] [address] [place] [address]- Thursday 9:20 AM EST With: Lupillo MORA, Loreta COPE Where: [facility] [address] [place] [address]- You Need to Schedule the Following Appointments Follow Up with Lupillo MORA, Loreta COPE When: In 4 months Comments: chronic care Where: [address] [place] [phone] Medications What How Much When Why Instructions Unchanged atorvastatin (atorvastatin 40 mg Tab) See instructions TAKE 1 TABLET BY MOUTH EVERY DAY Pickup at [facility]/pharmacy #[id number] Unchanged amlodipine (amLODIPine 5 mg Tab) 1 Tablets By Mouth Every day Duration: 90 Days Contact prescribing physician if questions or concerns Unchanged aripiprazole (Abilify 5 mg Tab) 1 Tablets By Mouth Every day Duration: 90 Days Contact prescribing physician if questions or concerns Unchanged ergocalciferol (ergocalciferol 50,000 intl units Cap) 1 Capsules By Mouth Every week Contact prescribing physician if questions or concerns Unchanged escitalopram (Lexapro 10 mg Tab) 1 Tablets By Mouth Every day Contact prescribing physician if questions or concerns Unchanged folic acid (folic acid 1 mg Tab) See instructions TAKE 1 TABLET BY MOUTH EVERY DAY Contact prescribing physician if questions or concerns Unchanged glimepiride (glimepiride 4 mg Tab) 1 Tablets By Mouth Every day Contact prescribing physician if questions or concerns Unchanged insulin glargine (Basaglar KwikPen 100 units/ mL subcutaneous solution) See instructions INJECT 30 UNITS UNDER THE SKIN EVERY MORNING WITH FOOD, 20 UNITS IN THE EVENING Contact prescribing physician if questions or concerns Unchanged ketoconazole topical (ketoconazole Top 2% Crm) 1 Application Topical Every day Contact prescribing physician if questions or concerns Unchanged levothyroxine (levothyroxine 75 mcg (0.075 mg) Tab) 1 Tablets By Mouth Every day Contact prescribing physician if questions or concerns Unchanged memantine (Namenda 10 mg oral tablet) 1 Tablets By Mouth 2 times a day Contact prescribing physician if questions or concerns Unchanged Misc Prescription (32 gauge pen needle 4 mm) See instructions Use to administer basaglar BID Contact prescribing physician if questions or concerns Unchanged Misc Prescription (Alcohol swabs, Kinde, band-aids) 0 Type 2 diabetes mellitus with hyperglycemia Duration: 30 Days Diabetic supply for a month with 2 refills Contact prescribing physician if questions or concerns Unchanged Misc Prescription (alcohol) See instructions tests BID alcohol wipes Contact prescribing physician if questions or concerns Unchanged Misc Prescription (Glucometer) 0 Type 2 diabetes mellitus with hyperglycemia Contact prescribing physician if questions or concerns Unchanged Misc Prescription (Lancet #100) 0 Type 2 diabetes mellitus (more content not included)... Normal [facility] Family Medicine Office/Clini c Noteon 11-22-2024 Family Medicine Office/Clinic Note Family Medicine Office/Clinic Note Chief Complaint 4 Month F/U Diabetes The patient presents for management of chronic conditions and evaluation of a hand injury. HPI Staff Patient is here for follow up on Diabetes. How often are you checking your blood sugars? 3 times per day What are your average readings?_Unknown forgot log at home Are you compliant with your diet? yes Do you exercise? yes Are you compliant with your medicationsyes Do you have any of the following symptoms? Vision problems? no GI-Nausea/committing/ bloating? no Lightheadedness? yes On occassion she gets light headed and dizzy enough to feel like she is going to fall Paresthesias, Ulcerations or sores? no Lisinopril, aspirin, statin therapy? Yes Foot Exam: no Eye Exam: only gets a regular eye exam U Microalb: 1.8 mg/dL (06/23/23 06:21:00) Hgb A1C %: 5.7 % (07/25/24 09:47:00) Needs Refill on atorvastatin and would like to switch from Nystatin powder to nystatin cream History of Present Illness 73 Years old Female here for 4 month chronic care HPI staff / Chief Complaint confirmed with the patient Screening: Colon Cancer screening: >10 with a _ year f/u recommended; this patient does NOT have family history of colon cancer Breast cancer screenin03/29/2024 ; this patient does NOT have a family history of breast cancer Pap smear: na DEXA: 04/01/2023 Labs: 07/25/2024 Diabetes/ prediabetes: Eye exam: 2023 done by _ Foot exam: 12/02/2023 done by Marvin Husain PA-C A1c: Hgb A1C %: 5.7 % (07/25/24 09:47:00) List of Providers Land Clearer: Dr Carpenter Tandem Operator: Dr Adame Orthopedic: Dr Cota Hydro Excavation Operator: Dr Townsend Manager Sql: Dr Cosby Urologist: Ignacia Lara PA-C Psychiatrist: LABS Cr/eGFR: eGFR: 54 mL/min/1.73 m2 Low (07/25/24 09:47:00) Creatinine: 1.1 mg/dL (07/25/24 09:47:00) A1c: Hgb A1C %: 5.7 % (07/25/24 09:47:00) TSH: TSH: 0.52 mcIU/mL (09/06/24 14:50:00) Vit D: Vitamin D 25 Hydroxy: 37.1 ng/mL (06/23/23 06:23:00) LDL: LDL Direct: 54 mg/dL (07/25/24 09:47:00) Lipids: Chol: 119 mg/dL Low (07/25/24 09:47:00) HDL: 57 mg/dL (07/25/24 09:47:00) LDL Direct: 54 mg/dL (07/25/24 09:47:00) Tri mg/dL (07/25/24 09:47:00) VLDL: 15 mg/dL (07/25/24 09:47:00) Microalbumin: U Microalb: 1.8 mg/dL (06/23/23 06:21:00) Future Appointments [facility] GER Ngo Appt. Date: 03/24/2025 8:00 AM Scheduled Provider: [facility] [employer] [facility] Phone: -- Fax: -- The patient is presenting with management of type 2 diabetes mellitus with stage 3a chronic kidney disease. Her blood sugar was recorded at 137 mg/dL this morning, and she is due for an A1c test to monitor her diabetes management. She follows up with her vault clerk regularly for kidney management. The patient also presents with primary hypertension, which is currently well-controlled as her blood pressure readings are satisfactory. She monitors her blood pressure at home, although she recently encountered issues with her blood pressure monitor due to battery problems. The patient reports an injury to her left hand sustained from a fall while picking up chalk in the yard. The injury occurred a week ago, and she experiences pain and swelling, particularly around the ring finger, making it difficult to form a fist. An x-ray has been ordered to assess for any fractures. In terms of preventative care, the patient is due for a colon cancer screening. She has never used tobacco, which is a positive factor in her overall health maintenance. Review of Systems PHQ Score Initial Depression Screen Score: 0 SCORE - Cardiovascular: Denies chest pain or palpitations. - Neurological: Denies numbness or tingling in feet. Physical Exam Vitals & Measurements HR: 64(Peripheral) RR: 18 BP: 130/78 SpO2: 98% HT: 157.5 cm HT: 62 in WT: 75.0 kg WT: 165.347 lb BMI: 30.23 Constitutional: Well-groomed, well-nourished, no signs of acute distress. HEENT: Head normocephalic, sclera is clear. Cardiothoracic: Heart rate and rhythm is regular strong, normal S1 and S2. No murmurs, rubs, or bruits auscultated. No peripheral edema, peripheral pulses +2 Respiratory: Lung sounds are clear throughout, respirations regular nonlabored. Abdomen/GI: Abdomen soft nondistended. Musculoskeletal: Gait is steady, full range of motion. Noted swelling and bruising on the left hand focus on distal left ring finger Integument: No rashes or lesions noted to the exposed skin. Psychiatric: Alert and oriented x 3, pleasant, no mood changes. Diabetic Foot Exam Decreased Monofilament Sensation Foot: Left - Normal, Right - Normal Bunions/Foot Deformity: Left - Normal, Right - Normal Abnormal Pulse Foot: Left - Normal, Right - Normal Skin Lesions Foot: Left - Normal, Right - Normal Foot Exam Result: Normal foot exam Assessment/Plan 1. Type 2 diabetes mellitus with stage 3a chronic kidney disease (E11.22: Type 2 diabetes mellitus with diabetic chronic kidney disease) The importance (more content not included)... Normal [facility] Comment on above: Result Comment: Elec tronically Signed By: Lupillo MORA, APPLE PACKING HEADER- ACTIVITY THERAPIST, Loreta Wan\.br\Date and Time Signed: 11/22/24 12:27 EDT [id number] 11-22-2024 HbA1c (Bld) [Mass fraction] 5.4 % Normal <=5.9 [facility] Comment on above: Performed By: #### 7 [id number] #### [facility] [address] [place] [address] U MA/Cr Ratioon 11-22-2024 Microalb/Cr Ratio 11.8 mg/gm Cr Normal .0-30.0 [facility] Comment on above: Result Comment: 30-3 00 mg/g Cr indicates an increased risk for diabetic nephropathy. >300 mg/g Cr is consistent with clinical nephropathy. Performed By: #### 1 [id number] #### [facility] [address] [place] [address] U Creatinine 185.8 mg/dL Invalid Interpretation Code [facility] Comment on above: Performed By: #### 1 [id number] #### [facility] [address] [place] [address] U Microalb 2.2 mg/dL High 0.0-1.9 [facility] Comment on above: Performed By: #### 1 [id number] #### [facility] [address] [place] [address] XR Hand 3+ Views Lefton 11-04 XR Hand 3+ Views Left Exam Date/Time: 11/22/2024 09:30 EDT Reason for Exam: swelling to left ring finger;Fall Report IMPRESSION: SUSPECT NONDISPLACED FRACTURE OF THE BASE OF THE LEFT FOURTH PROXIMAL PHALANX. EXAM: XR Hand 3+ Views Left DATE: 11/22/2024 9:17 AM CLINICAL HISTORY: Fall, swelling to left ring finger. Technologist Comments: Recent fall, general pain to left ring finger. Best images achieved, pt has a tremor in her hand. Pen used to help support the hand. COMPARISON: None available. TECHNIQUE: PA, lateral, and oblique radiographs of the left hand were obtained. FINDINGS: A nondisplaced fracture of the base of the left fourth proximal phalanx is suggested on the PA and oblique views, but not confirmed on the lateral view. There is no other fracture, dislocation, worrisome bone destruction, radiodense foreign bodies, or other posttraumatic complication identified elsewhere. Mild to moderate osteoarthritic changes are present, predominantly of the first carpometacarpal and DIP joints Ordering Provider: Loreta Casillas FINAL REPORT Dictated: 11/22/2024 9:34 am Humza Loving MD Signed (Electronic Signature): 11/22/2024 9:34 am Signed by: Humza Loving MD Transcribed by: CHAGO Technologist: MARIELA Lucero [facility] Ambulatory Visit Summaryon 0 09-06-2024 Ambulatory Visit Summary Ambulatory Visit Summary SABINA CANELA :1950 Visit Date:09/06/2024 Ambulatory Visit Instructions Your Diagnosis Hypothyroid Your Care Team Attending Physician - Lupillo MORA, BRAYAN-Loreta NAVA Primary Care Physician - Lupillo MORA, BRAYAN-Loreta NAVA. This Is Your Medications List Misc Prescription (32 gauge pen needle 4 mm) Misc Prescription (Alcohol swabs, Jose F, band-aids) Misc Prescription (Glucometer) Misc Prescription (Lancet #100) Misc Prescription (Test Strips) Misc Prescription (alcohol) Misc Prescription (lancets) amlodipine (amLODIPine 5 mg Tab) aripiprazole (Abilify 5 mg Tab) atorvastatin (atorvastatin 40 mg Tab) ergocalciferol (ergocalciferol 50,000 intl units Cap) escitalopram (Lexapro 10 mg Tab) folic acid (folic acid 1 mg Tab) glimepiride (glimepiride 4 mg Tab) insulin glargine (Basaglar KwikPen 100 units/mL subcutaneous solution) ketoconazole topical (ketoconazole Top 2% Crm) levothyroxine (levothyroxine 75 mcg (0.075 mg) Tab) memantine (Namenda 10 mg oral tablet) nystatin topical (nystatin Top 100,000 units/g Pwdr) ondansetron (Zofran 4 mg Tab) propranolol (propranolol 120 mg Cap-ER) ropinirole (Requip 0.25 mg Tab) semaglutide (Rybelsus 7 mg oral tablet) trazodone (traZODONE 50 mg Tab) triamcinolone topical (triamcinolone Top 0.025% Crm) Procedures Performed Tubal ligation. What to do next Scheduled Follow-Up Appointments Thursday 8:20 AM EDT With: Lupillo MSN, APPLE PACKING HEADER-ACTIVITY THERAPIST, Loreta Wan Where: [facility] [address] [place] [address]- Thursday 8:00 AM EST With: Where: [facility] [address] [place] [address]- Medications What How Much When Why Instructions Unchanged amlodipine (amLODIPine 5 mg Tab) 1 Tablets By Mouth Every day Duration: 90 Days Unchanged aripiprazole (Abilify 5 mg Tab) 1 Tablets By Mouth Every day Duration: 90 Days Unchanged atorvastatin (atorvastatin 40 mg Tab) See instructions TAKE 1 TABLET BY MOUTH EVERY DAY Unchanged ergocalciferol (ergocalciferol 50,000 intl units Cap) 1 Capsules By Mouth Every week Unchanged escitalopram (Lexapro 10 mg Tab) 1 Tablets By Mouth Every day Unchanged folic acid (folic acid 1 mg Tab) See instructions TAKE 1 TABLET BY MOUTH EVERY DAY Unchanged glimepiride (glimepiride 4 mg Tab) 1 Tablets By Mouth Every day Unchanged insulin glargine (Basaglar KwikPen 100 units/ mL subcutaneous solution) See instructions INJECT 30 UNITS UNDER THE SKIN EVERY MORNING WITH FOOD, 20 UNITS IN THE EVENING Unchanged ketoconazole topical (ketoconazole Top 2% Crm) 1 Application Topical Every day Unchanged levothyroxine (levothyroxine 75 mcg (0.075 mg) Tab) 1 Tablets By Mouth Every day Unchanged memantine (Namenda 10 mg oral tablet) 1 Tablets By Mouth 2 times a day Unchanged Misc Prescription (32 gauge pen needle 4 mm) See instructions Use to administer basaglar BID Unchanged Misc Prescription (Alcohol swabs, Jose F, band-aids) 0 Type 2 diabetes mellitus with hyperglycemia Duration: 30 Days Diabetic supply for a month with 2 refills Unchanged Misc Prescription (alcohol) See instructions tests BID alcohol wipes Unchanged Misc Prescription (Glucometer) 0 Type 2 diabetes mellitus with hyperglycemia Unchanged Misc Prescription (Lancet #100) 0 Type 2 diabetes mellitus with hyperglycemia Diagnoses diabetes. 3 month supplies Unchanged Misc Prescription (lancets) See instructions Diabetes check BID Unchanged Misc Prescription (Test Strips) See instructions To be used to check blood sugars BID and as needed. Dx: E11.9 Unchanged nystatin topical (nystatin Top 100,000 units/ g Pwdr) 1 Application Topical 2 times a day Unchanged ondansetron (Zofran 4 mg Tab) 1 Tablets By Mouth Every 8 hours as needed for Nausea/Vomiting Unchanged propranolol (propranolol 120 mg Cap-ER) See instructions TAKE 1 CAPSULE BY MOUTH EVERY DAY Unchanged ropinirole (Requip 0.25 mg Tab) 1 Tablets By Mouth Every day Unchanged semaglutide (Rybelsus 7 mg oral tablet) 1 Tablets By Mouth Every day take at least 30 minutes before first food, beverage, or other oral meds Unchanged trazodone (traZODONE 50 mg Tab) See instructions TAKE 1 TABLET BY MOUTH EVERYDAY AT BEDTIME Unchanged triamcinolone topical (triamcinolone Top 0.025% Crm) See instructions apply 1-2 times a day Allergies amoxicillin (Anaphylaxis) Problems Ongoing - Any problem that you are currently receiving treatment for. Anxiety Class 1 obesity due to excess calories in adult Colon cancer screening Effusion of bursa of left knee Essential tremor Former smoker Hypercholesterolemia Hypothyroid Long-term insulin use Moderate depressive disorder SHILOH (obstructive sleep apnea) Polyuria Primary hypertension Stage 3a chronic kidney disease (CKD) Suicidal ideation Thumb tendonitis Type 2 diabetes (more content not included)... Normal [facility] CHEMISTRYOrdered By: SYSTEM SYSTEM on 09-06-2024 TSH Qn 0.52 m[IU]/L Normal 0.34 - 5.60 mcIU/mL Remisol Chem TSH With T4fr Reflexon 09-06 TSH Qn 0.52 m[IU]/L Normal 0.34-5.60 [facility] Comment on above: Performed By: #### 1 [id number] #### [facility] [address] [place] [address] Ambulatory Visit Summaryon 0 07-25-2024 Ambulatory Visit Summary Ambulatory Visit Summary SABINA CANELA :1950 Visit Date:07/25/2024 Ambulatory Visit Instructions Your Diagnosis Type 2 diabetes mellitus with stage 3a chronic kidney disease Primary hypertension Stage 3a chronic kidney disease (CKD) Moderate depressive disorder Hypercholesterolemia Hypothyroid Essential tremor Class 1 obesity due to excess calories in adult, Other obesity due to excess calories BMI 31.0-31.9,adult Encounter for screening for cardiovascular disorders Medication management Lipid screening Your Care Team Attending Physician - Lupillo MORA, Loreta COPE Primary Care Physician - Lupillo MORA, Loreta COPE This Is Your Medications List amlodipine (amLODIPine 5 mg Tab) Contact prescribing physician if questions or concerns Misc Prescription (32 gauge pen needle 4 mm) Misc Prescription (Alcohol swabs, Jose F, band-aids) Misc Prescription (Glucometer) Misc Prescription (Lancet #100) Misc Prescription (Test Strips) Misc Prescription (alcohol) Misc Prescription (lancets) aripiprazole (Abilify 5 mg Tab) atorvastatin (atorvastatin 40 mg Tab) ergocalciferol (ergocalciferol 50,000 intl units Cap) escitalopram (Lexapro 10 mg Tab) folic acid (folic acid 1 mg Tab) glimepiride (glimepiride 4 mg Tab) insulin glargine (Basaglar KwikPen 100 units/mL subcutaneous solution) ketoconazole topical (ketoconazole Top 2% Crm) levothyroxine (levothyroxine 88 mcg (0.088 mg) Tab) memantine (Namenda 10 mg oral tablet) nystatin topical (nystatin Top 100,000 units/g Pwdr) ondansetron (Zofran 4 mg Tab) propranolol (propranolol 120 mg Cap-ER) ropinirole (Requip 0.25 mg Tab) semaglutide (Rybelsus 7 mg oral tablet) trazodone (traZODONE 50 mg Tab) triamcinolone topical (triamcinolone Top 0.025% Crm) Procedures Performed Tubal ligation. Discharge Vitals Heart Rate (Peripheral) 98 Respiratory Rate 16 Blood Pressure 108/64 Height 157.5 cm Height 62 in Weight 78.7 kg Weight 173.504 lb BMI 31.73 What to do next Scheduled Follow-Up Appointments Thursday 8:20 AM EDT With: Lupillo MORA, Loreta COPE Where: [address] [address]- Thursday 8:00 AM EST With: Where: [facility] [place] [address] [place] [address]- You Need to Schedule the Following Appointments Follow Up with Lupillo MSN, APPLE PACKING HEADER-ACTIVITY THERAPIST, Loreta Wan When: In 4 months Comments: chronic care Where: [address] [place] [phone] Medications What How Much When Why Instructions Changed amlodipine (amLODIPine 5 mg Tab) 1 Tablets By Mouth Every day Duration: 90 Days Pickup at [facility]/pharmacy #[id number] Unchanged aripiprazole (Abilify 5 mg Tab) 1 Tablets By Mouth Every day Duration: 90 Days Contact prescribing physician if questions or concerns Unchanged atorvastatin (atorvastatin 40 mg Tab) See instructions TAKE 1 TABLET BY MOUTH EVERY DAY Contact prescribing physician if questions or concerns Unchanged ergocalciferol (ergocalciferol 50,000 intl units Cap) 1 Capsules By Mouth Every week Contact prescribing physician if questions or concerns Unchanged escitalopram (Lexapro 10 mg Tab) 1 Tablets By Mouth Every day Contact prescribing physician if questions or concerns Unchanged folic acid (folic acid 1 mg Tab) See instructions TAKE 1 TABLET BY MOUTH EVERY DAY Contact prescribing physician if questions or concerns Unchanged glimepiride (glimepiride 4 mg Tab) 1 Tablets By Mouth Every day Contact prescribing physician if questions or concerns Unchanged insulin glargine (Basaglar KwikPen 100 units/ mL subcutaneous solution) See instructions INJECT 30 UNITS UNDER THE SKIN EVERY MORNING WITH FOOD, 20 UNITS IN THE EVENING Contact prescribing physician if questions or concerns Unchanged ketoconazole topical (ketoconazole Top 2% Crm) 1 Application Topical Every day Contact prescribing physician if questions or concerns Unchanged levothyroxine (levothyroxine 88 mcg (0.088 mg) Tab) 1 Tablets By Mouth Every day take 1 tablet by mouth every morning ON AN EMPTY STOMACH Contact prescribing physician if questions or concerns Unchanged memantine (Namenda 10 mg oral tablet) 1 Tablets By Mouth 2 times a day Contact prescribing physician if questions or concerns Unchanged Misc Prescription (32 gauge pen needle 4 mm) See instructions Use to administer basaglar BID Contact prescribing physician if questions or concerns Unchanged Misc Prescription (Alcohol swabs, Jose F, band-aids) 0 Type 2 diabetes mellitus with hyperglycemia Duration: 30 Days Diabetic supply for a month with 2 refills Contact prescribing physician if questions or concerns Unchanged Misc Prescription (alcohol) See instructions tests BID alcohol wipes Contact prescribing physician if questions or concerns Unchanged Misc Prescription (Gluco (more content not included)... Normal [facility] CBC w/ Auto Diffon 5 Basophils/100 WBC (Bld) 0.6 % Normal 0.0-2.0 [facility] Comment on above: Performed By: #### 2 [id number] #### [facility] [address] [place] [address] Basophils/Leukocytes Auto (Bld) [Pure # fraction] 0.0 E9/L Normal 0.0-0.2 [facility] Comment on above: Performed By: #### 2 [id number] #### [facility] [address] [place] [address] Eosinophils (Bld) [#/Vol] 0.1 E9/L Normal 0.0-0.5 [facility] Comment on above: Performed By: #### 2 [id number] #### [facility] [address] [place] [address] Eosinophils/100 WBC (Bld) 1.3 % Normal 0.0-8.0 [facility] Comment on above: Performed By: #### 2 [id number] #### [facility] [address] [place] [address] Erythrocyte distribution width (RBC) [Ratio] 13.8 % Normal 10.9-14.2 [facility] Comment on above: Performed By: #### 2 [id number] #### [facility] [address] [place] [address] Hematocrit (Bld) [Volume fraction] 37.5 % Normal 34.0-46.0 [facility] Comment on above: Performed By: #### 2 [id number] #### [facility] [address] [place] [address] Hemoglobin (Bld) [Mass/Vol] 12.5 g/dL Normal 12.0-16.0 [facility] Comment on above: Performed By: #### 2 [id number] #### [facility] [address] [place] [address] [place] [address] Lymphocytes (Bld) [#/Vol] 2.0 E9/L Normal 1.0-4.0 [facility] Comment on above: Performed By: #### 2 [id number] #### [facility] [address] [place] [address] Lymphocytes/100 WBC (Bld) 28.9 % Normal 14.0-50.0 [facility] Comment on above: Performed By: #### 2 [id number] #### [facility] [address] [place] [address] MCH (RBC) [Entitic mass] 30.1 pg Normal 27.0-34.0 [facility] Comment on above: Performed By: #### 2 [id number] #### [facility] [address] [place] [address] MCHC (RBC) [Mass/Vol] 33.4 g/dL Normal 31.4-36.0 [facility] [place] Comment on above: Performed By: #### 2 [id number] #### [facility] [address] [place] [address] MCV (RBC) [Entitic vol] 90.1 fL Normal 80.0-100.0 [facility] Comment on above: Performed By: #### 2 [id number] #### [facility] [address] [place] [address] Monocytes (Bld) [#/Vol] 0.6 E9/L Normal 0.2-1.0 [facility] Comment on above: Performed By: #### 2 [id number] #### [facility] [address] [place] [address] Neutrophils (Bld) [#/Vol] 4.3 E9/L Normal 2.0-7.5 [facility] Comment on above: Performed By: #### 2 [id number] #### [facility] [address] [place] [address] Neutrophils/100 WBC (Bld) 60.8 % Normal 36.0-75.0 [facility] Comment on above: Performed By: #### 2 [id number] #### [facility] [address] [place] [address] Platelet mean volume (Bld) [Entitic vol] 9.9 fL Normal 6.4-10.8 [facility] Comment on above: Performed By: #### 2 [id number] #### [facility] [address] [place] [address] Platelets (Bld) [#/Vol] 183.0 E9/L Normal 150.0-500.0 [facility] Comment on above: Performed By: #### 2 [id number] #### [facility] [address] [place] [address] RBC (Bld) [#/Vol] 4.2 E12/L Low 4.3-5.9 [facility] Comment on above: Performed By: #### 2 [id number] #### [facility] [address] [place] [address] WBC corrected for nucl RBC Auto (Bld) [#/Vol] 7.0 E9/L Normal 4.0-11.0 [facility] Comment on above: Performed By: #### 2 [id number] #### [facility] [address] [place] [address] CHEMISTRYOrdered By: SYSTEM SYSTEM on 07-25-2024 Albumin [Mass/Vol] 3.6 g/dL Normal 3.3 - 5.0 gm/dL R emisol Chem Albumin/Globulin [Mass ratio] 1.4 {ratio} Normal 1.1 - 2.2 [facility] ALP [Catalytic activity/Vol] 66 [iU]/d Normal 21 - 98 Int._Unit/L [facility] ALT No additional P-5'-P [Catalytic activity/Vol] 20 [iU]/d Normal 6 - 46 Int._Unit/L [facility] Anion gap [Moles/Vol] 10 mmol/L Normal 6 - 16 mEq/L R emisol Chem AST [Catalytic activity/Vol] 25 [iU]/d Normal 5 - 43 Int._Unit/L [facility] Bilirubin [Mass/Vol] 0.6 mg/dL Normal 0.0 - 1.1 mg/dL [facility] Calcium [Mass/Vol] 9.6 mg/dL Normal 8.9 - 11. 1 mg/dL [facility] Chloride [Moles/Vol] 105 mmol/L Normal 101 - 1 11 mmol/L [facility] Cholesterol [Mass/Vol] 119 mg/dL Low 120 - 200 mg/dL [facility] Cholesterol in HDL [Mass/Vol] 57 mg/dL Invalid Interpretation Code [facility] Comment on above: Result Comment: '>= 60 LOW RISK' '<= 40 HIGH RISK' Cholesterol in LDL [Mass/Vol] 54 mg/dL Normal <=129mg/dL [facility] Cholesterol in VLDL [Mass/Vol] 15 mg/dL Normal 7 - 40 mg/dL [facility] CO2 [Moles/Vol] 28 mmol/L Normal 21 - 31 mmol/L Remis ol Chem Creatinine [Mass/Vol] 1.1 mg/dL Normal 0.5 - 1.3 mg/d L [facility] eGFR 54 mL/min/1.73 m2 Low >=59mL/min /1.73 m2 [facility] Free T4 [Mass/Vol] 1.80 ng/dL High 0.58 - 1. 64 ng/dL [facility] Globulin (S) [Mass/Vol] 2.6 g/dL Normal 1.4 - 4.0 gm/dL [facility] Glucose [Mass/Vol] 165 mg/dL Normal 55 - 199 mg/dL Re misol Chem Potassium [Moles/Vol] 3.6 mmol/L Normal 3.5 - 5.3 mmol/L [facility] Protein [Mass/Vol] 6.2 g/dL Normal 6.0 - 7.8 gm/dL R emisol Chem Sodium [Moles/Vol] 139 mmol/L Normal 135 - 145 mmol/L [facility] Triglyceride [Mass/Vol] 75 mg/dL Normal <=149mg/dL [facility] TSH Qn 0.23 m[IU]/L Low 0.34 - 5.60 mcIU/mL [facility] Urea nitrogen [Mass/Vol] 13 mg/dL Normal 5 - 21 mg/dL [facility] Urea nitrogen/Creatinine [Mass ratio] 12 mg/mg Normal 10 - 20 [facility] CHEMISTRYOrdered By: Angy Ceballos on 07-25-2024 HbA1c (Bld) [Mass fraction] 5.7 % Normal <=5.9% [facility] ChemAutoSS CMPon 07-25-2024 Albumin [Mass/Vol] 3.6 g/dL Normal 3.3-5.0 [facility] Comment on above: Performed By: #### 2 [id number] #### [facility] [address] [place] [address] Albumin/Globulin (S) [Mass conc ratio] 1.4 Normal 1.1-2.2 [facility] Comment on above: Performed By: #### 2 [id number] #### [facility] [address] [place] [address] ALP [Catalytic activity/Vol] 66 Int._Unit/L Normal 21-98 [facility] Comment on above: Performed By: #### 2 [id number] #### [facility] [address] [place] [address] ALT No additional P-5'-P [Catalytic activity/Vol] 20 Int._Unit/L Normal 6-46 [facility] Comment on above: Performed By: #### 2 [id number] #### [facility] [address] [place] [address] Anion gap [Moles/Vol] 10 mmol/L Normal 6-16 [facility] Comment on above: Performed By: #### 2 [id number] #### [facility] [address] [place] [address] AST [Catalytic activity/Vol] 25 Int._Unit/L Normal 5-43 [facility] Comment on above: Performed By: #### 2 [id number] #### [facility] [address] [place] [address] Bilirubin [Mass/Vol] 0.6 mg/dL Normal 0.0-1.1 [facility] Comment on above: Performed By: #### 2 [id number] #### [facility] [address] [place] [address] Calcium [Mass/Vol] 9.6 mg/dL Normal 8.9-11.1 [facility] Comment on above: Performed By: #### 2 [id number] #### [facility] [address] [place] [address] Chloride [Moles/Vol] 105 mmol/L Normal 101-111 [facility] Comment on above: Performed By: #### 2 [id number] #### [facility] [address] [place] [address] CO2 [Moles/Vol] 28 mmol/L Normal 21-31 [facility] Comment on above: Performed By: #### 2 [id number] #### [facility] [address] [place] [address] Creatinine [Mass/Vol] 1.1 mg/dL Normal 0.5-1.3 [facility] Comment on above: Performed By: #### 2 [id number] #### [facility] [address] [place] [address] Globulin (S) [Mass/Vol] 2.6 g/dL Normal 1.4-4.0 [facility] Comment on above: Performed By: #### 2 [id number] #### [facility] [address] [place] [address] Glucose [Mass/Vol] 165 mg/dL Normal 55-199 [facility] Comment on above: Performed By: #### 2 [id number] #### [facility] [address] [place] [address] Potassium [Moles/Vol] 3.6 mmol/L Normal 3.5-5.3 [facility] Comment on above: Performed By: #### 2 [id number] #### [facility] [address] [place] [address] Protein [Mass/Vol] 6.2 g/dL Normal 6.0-7.8 [facility] Comment on above: Performed By: #### 2 [id number] #### [facility] [address] [place] [address] Sodium [Moles/Vol] 139 mmol/L Normal 135-145 [facility] Comment on above: Performed By: #### 2 [id number] #### [facility] [address] [place] [address] Urea nitrogen [Mass/Vol] 13 mg/dL Normal 5-21 [facility] Comment on above: Performed By: #### 2 [id number] #### [facility] [address] [place] [address] Urea nitrogen/Creatinine [Mass ratio] 12 No Units Normal 10-20 [facility] Comment on above: Performed By: #### 2 [id number] #### [facility] [address] [place] [address] Family Medicine Office/Clini c Noteon 07-25-2024 Family Medicine Office/Clinic Note Family Medicine Office/Clinic Note Chief Complaint The patient presented for follow-up on chronic health conditions and medication management. HPI Staff Patient is here for follow up on hypertension. How often are you checking your blood pressure? few days a week What are your average readings? unsure of readings Are you compliant with your diet? yes Do you exercise? no Are you compliant with your medications? yes Are you having difficulty affording your medications? no Do you have side effects from the medication? no Do you have any of the following symptoms? Chest Pain? no Palpitations? no REN/SOB? no Headache? no Peripheral Edema? no Light Headedness? yes weakness , has trouble getting out of bed Patient is here for follow up on Diabetes. How often are you checking your blood sugars? 1 times per day What are your average readings? 70-100 Do you have low blood sugar readings/symptoms? Denies Do you have high blood sugar readings/symptoms? Denies Are you compliant with your diet? yes Do you exercise? no Are you compliant with your medications? Yes Having difficulty affording your medications? No Do you have any of the following symptoms? Vision problems? Denies GI-Nausea/committing/ bloating? Denies Lightheadedness? Denies Paresthesias, Ulcerations or sores? Denies History of Present Illness 73 Years old Female here for 4 month chronic care HPI staff / Chief Complaint confirmed with the patient Screening: Colon Cancer screening: >10 with a _ year f/u recommended; this patient does NOT have family history of colon cancer Breast cancer screenin03/29/2024 ; this patient does NOT have a family history of breast cancer Pap smear: na DEXA: 04/01/2023 Labs: 12/29/2023, 06/23/2023 Diabetes/ prediabetes: Eye exam: 2023 done by _ Foot exam: 12/02/2023 done by Marvin Husain PA-C A1c: Hgb A1C %: 6.5 % High (12/01/23 08:43:00) List of Providers Land Clearer: Dr Carpenter Tandem Operator: Dr Adame Orthopedic: Dr Cota Hydro Excavation Operator: Dr Townsend Manager Sql: Dr Cosby Urologist: Ignacia Lara PA-C Psychiatrist: LABS Cr/eGFR: eGFR: 54 mL/min/1.73 m2 Low (12/29/23 12:22:00) Creatinine: 1.1 mg/dL (12/29/23 12:22:00) A1c: Hgb A1C %: 6.5 % High (12/01/23 08:43:00) TSH: TSH: 0.65 mcIU/mL (12/01/23 08:43:00) Vit D: Vitamin D 25 Hydroxy: 37.1 ng/mL (06/23/23 06:23:00) LDL: LDL Direct: 55 mg/dL (06/23/23 06:23:00) Lipids: Chol: 123 mg/dL (06/23/23 06:23:00) HDL: 55 mg/dL (06/23/23 06:23:00) LDL Direct: 55 mg/dL (06/23/23 06:23:00) Tri mg/dL (06/23/23 06:23:00) VLDL: 14 mg/dL (06/23/23 06:23:00) Microalbumin: U Microalb: 1.8 mg/dL (06/23/23 06:21:00) Future Appointments Appt. Date: 03/24/2025 8:00 AM Scheduled Provider: [facility] Phone: -- Fax: -- The patient is presenting for screening and evaluation of her chronic health conditions. She has been managing chronic conditions including type 2 diabetes mellitus with associated stage 3a chronic kidney disease, essential tremors, hypercholesterolemia, and primary hypertension. She has experienced blood glucose fluctuations and essential tremors mildly impacting day-to-day activities, with a history of well-managed primary hypertension on Amlodipine. The patient reports improvements in her depressive symptoms compared to last year after discharge from psychiatric care, although she indicated no psychiatrist confirmed follow-up. The patient experiences bowel irregularities impacting gastrointestinal screenings. She maintains routine follow-ups and confirmed medication adherence, but requires blood work for complete assessment and continued management. Review of Systems PHQ Score Initial Depression Screen Score: 4 SCORE - Neurological: Reports tremors, particularly impacting hand movements. Denies family history of Parkinson???s disease. - Gastrointestinal: Reports diarrhea, particularly noticeable with colorectal screening attempts. Denies abdominal pain. - Cardiovascular: Denies chest pain or palpitations. Reports good control over hypertension with recent accurate readings. - Psychiatric: Reports stable mood; denies suicidal ideation. - Endocrine: Reports fluctuations in blood sugar levels. Denies recent notable symptoms of hypothyroidism. - Respiratory: Denies respiratory symptoms or recent pulmonary follow-ups. - Musculoskeletal: Reports no leg swelling. Physical Exam Vitals & Measurements HR: 98(Peripheral) RR: 16 BP: 108/64 SpO2: 97% HT: 62 in HT: 157.5 cm WT: 173.504 lb WT: 78.7 kg BMI: 31.73 Constitutional: Well-groomed, well-nourished, no signs of acute distress. HEENT: Head normocephalic, sclera is clear. Cardiothoracic: Heart rate and rhythm is regular strong, normal S1 and S2. No murmurs, rubs, or bruits auscultated. No peripheral edema, peripheral pulses +2 Respiratory: Lung sounds are clear throughout, respirations regular nonlabored. Abdomen/GI: Abdomen soft nondistended. (more content not included)... Normal [facility] Comment on above: Result Comment: Elec tronically Signed By: Lupillo MORA, APPLE PACKING HEADER- ACTIVITY THERAPIST, Loreta Wan\.br\Date and Time Signed: 07/25/24 09:53 EDT Free T4on 07-25-2024 Free T4 [Mass/Vol] 1.80 ng/dL High 0.58-1.64 [facility] Comment on above: Performed By: #### 2 [id number] #### [facility] [address] [place] [address] HEMATOLOGYOrdered By: SYSTEM SYSTEM on 07-25-2024 Basophils/100 WBC (Bld) 0.6 % Normal 0.0 - 2.0 % [facility] Basophils/Leukocytes Auto (Bld) [Pure # fraction] 0.0 E9/L Normal 0.0 - 0.2 E9/L [facility] Eosinophils (Bld) [#/Vol] 0.1 E9/L Normal 0.0 - 0.5 E9/L [facility] Eosinophils/100 WBC (Bld) 1.3 % Normal 0.0 - 8.0 % [facility] Erythrocyte distribution width (RBC) [Ratio] 13.8 % Normal 10.9 - 14.2 % [facility] Hematocrit (Bld) [Volume fraction] 37.5 % Normal 34.0 - 46.0 % [facility] Hemoglobin (Bld) [Mass/Vol] 12.5 g/dL Normal 12.0 - 16.0 gm/dL [facility] Lymphocytes (Bld) [#/Vol] 2.0 E9/L Normal 1.0 - 4.0 E9/L [facility] Lymphocytes/100 WBC (Bld) 28.9 % Normal 14.0 - 50.0 % [facility] MCH (RBC) [Entitic mass] 30.1 pg Normal 27.0 - 34.0 pg [facility] MCHC (RBC) [Mass/Vol] 33.4 g/dL Normal 31.4 - 36.0 gm/dL [facility] MCV (RBC) [Entitic vol] 90.1 fL Normal 80.0 - 100.0 fL [facility] Monocytes (Bld) [#/Vol] 0.6 E9/L Normal 0.2 - 1.0 E9/L [facility] Monocytes/100 WBC (Bld) 8.4 % Normal 4.0 - 14.0 % [facility] Neutrophils (Bld) [#/Vol] 4.3 E9/L Normal 2.0 - 7.5 E9/L [facility] Neutrophils/100 WBC (Bld) 60.8 % Normal 36.0 - 75.0 % [facility] Platelet mean volume (Bld) [Entitic vol] 9.9 fL Normal 6.4 - 10.8 fL [facility] Platelets (Bld) [#/Vol] 183.0 E9/L Normal 150.0 - 500.0 E9/L [facility] RBC (Bld) [#/Vol] 4.2 E12/L Low 4.3 - 5.9 E12/L Re misol Heme WBC corrected for nucl RBC Auto (Bld) [#/Vol] 7.0 E9/L Normal 4.0 - 11.0 E9/L [facility] BytK2sub 07-25-2024 HbA1c (Bld) [Mass fraction] 5.7 % Normal <=5.9 [facility] Comment on above: Performed By: #### 7 [id number] #### [facility] [address] [place] [address] Lipid Panelon 07-25-2024 Cholesterol [Mass/Vol] 119 mg/dL Low 120-200 [facility] Comment on above: Performed By: #### 2 [id number] #### [facility] [address] [place] [address] Cholesterol in HDL [Mass/Vol] 57 mg/dL Invalid Interpretation Code [facility] Comment on above: Result Comment: '>= 60 LOW RISK' '<= 40 HIGH RISK' Performed By: #### 2 [id number] #### [facility] [address] [place] [address] Cholesterol in LDL [Mass/Vol] 54 mg/dL Normal <=129 [facility] Comment on above: Performed By: #### 2 [id number] #### [facility] [address] [place] [address] Cholesterol in VLDL [Mass/Vol] 15 mg/dL Normal 7-40 [facility] Comment on above: Performed By: #### 2 [id number] #### [facility] [address] [place] [address] Triglyceride [Mass/Vol] 75 mg/dL Normal <=149 [facility] Comment on above: Performed By: #### 2 [id number] #### [facility] [address] [place] [address] TSH With T4fr Reflexon 04-21 -2025 TSH Qn 0.23 m[IU]/L Low 0.34-5.60 [facility] Comment on above: Performed By: #### 1 [id number] #### [facility] [address] [place] [address] eGFRon 07-25-2024 eGFR 54 mL/min/1.73 m2 Low >=59 [facility] Comment on above: Performed By: #### 1 [id number] #### [facility] [address] [place] [address] Erythrocyte distribution wid th Auto (RBC) [Ratio]on 06-07-2024 Erythrocyte distribution width (RBC) [Ratio] Erythrocyte distribution width [Ratio] by Automated count 11.0-15.0 [facility] Estimated glomerular filtrat ion rate (GFR) non- Americanon 06-07-2024 GFR/1.73 sq M.predicted among non-blacks MDRD (S/P/Bld) [Vol rate/Area] Estimated glomerular filtration rate (GFR) non- Low >=60 mL/min/1.73m 2 [facility] Hematocrit Auto (Bld) [Volum e fraction]on 06-07-2024 Hematocrit (Bld) [Volume fraction] Hematocrit [Volume Fraction] of Blood by Automated count 36.0-48.0 [facility] Hemoglobin [Mass/volume] in Bloodon 06-07-2024 Hemoglobin (Bld) [Mass/Vol] Hemoglobin [Mass/volume] in Blood 12.0-16.0 [facility] Laboratory - Chemistry and C hemistry - challengeon 06-07-2024 Albumin [Mass/Vol] 3.4 g/dL 3.4-5.0 [facility] Calcium [Mass/Vol] 9.6 mg/dL 8.5-10.1 [facility] Chloride [Moles/Vol] 106 mmol/L 98-107 [facility] CO2 [Moles/Vol] 27.9 mmol/L 21.0-32.0 [facility] Creatinine [Mass/Vol] 1.19 mg/dL High 0.55-1.02 [facility] GFR/1.73 sq M.predicted MDRD (S/P/Bld) [Vol rate/Area] 54 mL/min/{1.73_m2} Low >=60 mL/min/1.73m 2 [facility] Glucose [Mass/Vol] 98 mg/dL 74-106 [facility] Magnesium [Mass/Vol] 1.5 mg/dL Low 1.8-2.4 [facility] Potassium [Moles/Vol] 3.3 mmol/L Low 3.5-5.1 [facility] Sodium [Moles/Vol] 141 mmol/L 136-145 [facility] Urate [Mass/Vol] 5.4 mg/dL 2.6-6.0 [facility] Urea nitrogen [Mass/Vol] 26.0 mg/dL High 7.0-18.0 [facility] Urea nitrogen/Creatinine [Mass ratio] 21.8 mg/mg [facility] Laboratory - Urinalysison Protein (U) [Mass/Vol] 37.9 mg/dL High <=11.9 [facility] Leukocytes [#/volume] correc annel for nucleated erythrocytes in Blood by Automated counon 06-07-2024 WBC corrected for nucl RBC Auto (Bld) [#/Vol] Leukocytes [#/volume] corrected for nucleated erythrocytes in Blood by Automated coun 4.0-11.0 [facility] MCH Auto (RBC) [Entitic mass ]on 06-07-2024 MCH (RBC) [Entitic mass] MCH [Entitic mass] by Automated count 26.7-34.0 [facility] MCHC Auto (RBC) [Mass/Vol]on 06-07-2024 MCHC (RBC) [Mass/Vol] MCHC [Mass/volume] by Automated count 29.9-35.2 [facility] MCV Auto (RBC) [Entitic vol] on 06-07-2024 MCV (RBC) [Entitic vol] MCV [Entitic volume] by Automated count 81.0-99.0 [facility] No Panel Informationon 06-07 25-Hydroxy Vitamin D Total 79.5 ng/mL [facility] Comment on above: <20 ng/mL Vit D defi cient20-<30 ng/mL Vit D [id number] ng/mL Vit D sufficient>100 ng/mL Potential Toxicity Parathyroid Hormone (Intact) 73 pg/mL Abnormal 15-65 [facility] Comment on above: Performed at: [address] [id number] Director: Johnny Oakes PhD, Phone: [phone] Phosphorus Level 3.4 mg/dL 2.6-4.7 [facility] Urine Random Creatinine 211.17 mg/dL 20.00-300.00 [facility] Platelet mean volume Auto (B ld) [Entitic vol]on 06-07-2024 Platelet mean volume (Bld) [Entitic vol] Platelet mean volume [Entitic volume] in Blood by Automated count 9.5-13.5 [facility] Platelets Auto (Bld) [#/Vol] on 06-07-2024 Platelets (Bld) [#/Vol] Platelets [#/volume] in Blood by Automated count 150-450 [facility] RBC Auto (Bld) [#/Vol]on RBC (Bld) [#/Vol] Erythrocytes [#/volume] in Blood by Automated count 4.20-5.40 [facility] Serum or plasma anion gap de terminationon 06-07-2024 Anion gap [Moles/Vol] Serum or plasma an ion gap determination [facility] Urine Cultureon 06-07-2024 Bacteria identified Cx Nom (U) ORGANISM: Streptococcus anginosus (O:JERMAIN) [place] Count >100,000 Organism Comments Organism not Routinely Tested for Susceptibilities PERFORMED BY: [place] [address] PATHOLOGIST [employer] LIBRARY TECHNICAL ASSISTANT JUAN PABLO FARRIS M.D. Normal [facility] Comment on above: Performed By: #### C UU #### [address] Urine cultureOrdered By: Franki Presley on 06-07-2024 Bacteria identified Cx Nom (U) Abnormal [facility] Urine protein/creatinine rat ioon 06-07-2024 Protein/Creatinine (U) [Ratio] Urine protein/creatinine ratio [facility] C Urineon 05-13-2024 Bacteria identified Cx Nom (U) Microbiology PROCEDURE: Urine Culture [R1] SOURCE: U CleanCatch BODY SITE: COLLECTED DATE/TIME: 05/10/2024 10:09 EST RECEIVED DATE/TIME: 05/10/2024 18:55 EST START DATE/TIME: 05/10/2024 18:55 EST FREE TEXT SOURCE: Alexi Lopes MD, MD, Brett E FINAL REPORTS Final Report [] Verified Date/Time: 05/13/2024 13:40 EST >100,000 cfu/ml Aerococcus viridans isolated. Therapeutic Options: Penicillin or ceftriaxone, with or without an aminoglycoside; vancomycin is used in cases of penicillin allergies and beta-lactam resistance. 5,000 cfu/ml Mixed skin contaminants Performing Locations R1: This test was performed at: [facility], [address] [place] [address], [id number] , , [facility] Comment on above: Performed By: #### 2 [id number] #### [facility] [address] [place] [address] Ambulatory Visit Summaryon 0 05-10-2024 Ambulatory Visit Summary Ambulatory Visit Summary YADY CANELATEN Davidson :1950 Visit Date:05/10/2024 Ambulatory Visit Instructions Your Diagnosis Dysuria Acute URI Your Care Team Attending Physician - Alexi Lopes MD Primary Care Physician - Lupillo MSN, APPLE PACKING HEADER-ACTIVITY THERAPIST, Loreta Wan This Is Your Medications List Misc Prescription (32 gauge pen needle 4 mm) Misc Prescription (Alcohol swabs, Jose F, band-aids) Misc Prescription (Glucometer) Misc Prescription (Lancet #100) Misc Prescription (Test Strips) Misc Prescription (alcohol) Misc Prescription (lancets) amlodipine (amLODIPine 5 mg Tab) aripiprazole (Abilify 5 mg Tab) atorvastatin (atorvastatin 40 mg Tab) benzonatate (Tessalon 100 mg Cap) dextromethorphan-prom ethazine (dextromethorphan-pro methazine 15 mg-6.25 mg/5 mL Oral Syrup 5 mL) ergocalciferol (ergocalciferol 50,000 intl units Cap) escitalopram (Lexapro 10 mg Tab) folic acid (folic acid 1 mg Tab) glimepiride (glimepiride 4 mg Tab) insulin glargine (Basaglar KwikPen 100 units/mL subcutaneous solution) ketoconazole topical (ketoconazole Top 2% Crm) levothyroxine (levothyroxine 88 mcg (0.088 mg) Tab) memantine (Namenda 10 mg oral tablet) nystatin topical (nystatin Top 100,000 units/g Pwdr) ondansetron (Zofran 4 mg Tab) propranolol (propranolol 120 mg Cap-ER) ropinirole (Requip 0.25 mg Tab) semaglutide (Rybelsus 7 mg oral tablet) trazodone (traZODONE 50 mg Tab) triamcinolone topical (triamcinolone Top 0.025% Crm) Procedures Performed Tubal ligation. Discharge Vitals Temperature (Oral) 37.4 ???C Heart Rate (Peripheral) 80 Respiratory Rate 16 Blood Pressure 110/60 Height 157.5 cm Height 62 in Weight 85.0 kg Weight 187.393 lb BMI 34.27 What to do next Scheduled Follow-Up Appointments Thursday 9:00 AM EDT With: Lupillo MSN, APPLE PACKING HEADER-ACTIVITY THERAPIST, Loreat Wan Where: [place] [address] [place] [address]- Thursday 8:00 AM EST With: Where: [facility] [address] [place] [address]- Medications What How Much When Why Instructions New benzonatate (Tessalon 100 mg Cap) 1 Capsules By Mouth 3 times a day Duration: 7 Days Pickup at [facility]/pharmacy #[id number] New dextromethorphan-prom ethazine (dextromethorphan-pro methazine 15 mg-6.25 mg/ 5 mL Oral Syrup 5 mL) 5 Milliliter By Mouth Every 6 hours as needed for for cough Pickup at [facility]/pharmacy #[id number] Unchanged amlodipine (amLODIPine 5 mg Tab) 1 Tablets By Mouth Every day Unchanged aripiprazole (Abilify 5 mg Tab) 1 Tablets By Mouth Every day Duration: 90 Days Unchanged atorvastatin (atorvastatin 40 mg Tab) See instructions TAKE 1 TABLET BY MOUTH EVERY DAY Unchanged ergocalciferol (ergocalciferol 50,000 intl units Cap) 1 Capsules By Mouth Every week Unchanged escitalopram (Lexapro 10 mg Tab) 1 Tablets By Mouth Every day Unchanged folic acid (folic acid 1 mg Tab) 1 Tablets By Mouth Every day Unchanged glimepiride (glimepiride 4 mg Tab) 1 Tablets By Mouth Every day Unchanged insulin glargine (Basaglar KwikPen 100 units/ mL subcutaneous solution) See instructions 30 units SUBQ every morning with food 20 units SUBQ every evening rotate injection sites Unchanged ketoconazole topical (ketoconazole Top 2% Crm) 1 Application Topical Every day Unchanged levothyroxine (levothyroxine 88 mcg (0.088 mg) Tab) 1 Tablets By Mouth Every day take 1 tablet by mouth every morning ON AN EMPTY STOMACH Unchanged memantine (Namenda 10 mg oral tablet) 1 Tablets By Mouth 2 times a day Unchanged Misc Prescription (32 gauge pen needle 4 mm) See instructions Use to administer basaglar BID Unchanged Misc Prescription (Alcohol swabs, Jose F, band-aids) 0 Type 2 diabetes mellitus with hyperglycemia Duration: 30 Days Diabetic supply for a month with 2 refills Unchanged Misc Prescription (alcohol) See instructions tests BID alcohol wipes Unchanged Misc Prescription (Glucometer) 0 Type 2 diabetes mellitus with hyperglycemia Unchanged Misc Prescription (Lancet #100) 0 Type 2 diabetes mellitus with hyperglycemia Diagnoses diabetes. 3 month supplies Unchanged Misc Prescription (lancets) See instructions Diabetes check BID Unchanged Misc Prescription (Test Strips) See instructions To be used to check blood sugars BID and as needed. Dx: E11.9 Unchanged nystatin topical (nystatin Top 100,000 units/ g Pwdr) 1 Application Topical 2 times a day Unchanged ondansetron (Zofran 4 mg Tab) 1 Tablets By Mouth Every 8 hours as needed for Nausea/Vomiting Unchanged propranolol (propranolol 120 mg Cap-ER) See instructions TAKE 1 CAPSULE BY MOUTH EVERY DAY Unchanged ropinirole (Requip 0.25 mg Tab) 1 Tablets By Mouth Every day Unchanged semaglutide (Rybelsus 7 mg oral tablet) 1 Tablets By Mouth Every day take at least 30 minutes before first food, beverage, or other oral meds Unchanged trazodone (traZODONE 50 mg Tab) (more content not included)... [facility] Family Medicine Office/Clini c Noteon 05-10-2024 Family Medicine Office/Clinic Note Family Medicine Office/Clinic Note Chief Complaint night started with a cough, sinus discharge, no fever, Cough, congestion, and dysuria. HPI Staff C/O Cough: Duration: 6 days Cough Description: dry Productive: no Respiratory Symptoms: Chest congestion: Denies Chest tightness: Denies Hemoptysis: Denies Sinus pressure: Denies Shortness of breath: Denies Wheezing: Denies Symptom complex: Allergy symptoms: Denies Body aches: Denies Ear complaints: Denies Eye watering: Denies Fever: yes Headache: yes Nasal congestion: Denies Nasal discharge: yes Sinus pain/pressure: yes Vomiting: Denies Wheezing: Denies Feeding as usual: yes Adequate voiding and stooling: yes Exposure: no ill contacts Remedies tried: Cough medication Pertinent History: unremarkable Improved: no History of Present Illness The patient is a 73-year-old female presenting with upper respiratory symptoms. Approximately five days ago, she experienced the onset of cough, congestion, and a runny nose, though she reported no fever. She indicated that the symptoms began spontaneously one evening and has since persisted. She has not been around anyone who was sick. The patient has been cautious about using [id number] medications due to potential interactions with her current medications, and was advised only to take Tylenol. She reports a severe headache in conjunction with these symptoms. Despite receiving a flu vaccine, there is concern about influenza A. The patient has been vaccinated against COVID-19 but has not received the RSV vaccine. Additionally, she presented with dysuria that started on the morning of the visit, with a sensation of burning during urination. She requested treatment for a urinary tract infection. The patient mentions that she manages her blood sugar levels consistently and has noted them as stable during her illness, with her last A1c recorded at 6.5%. Review of Systems PHQ Score Initial Depression Screen Score: 0 SCORE - Constitutional: Denies fever. - Nose and Sinus: Reports congestion and runny nose. - Respiratory: Reports cough, denies dyspnea. - Neurological: Reports severe headache. - Genitourinary: Reports burning sensation with urination. Physical Exam Vitals & Measurements T: 37.4 ???C(Oral) HR: 80(Peripheral) RR: 16 BP: 110/60 SpO2: 96% HT: 62 in HT: 157.5 cm WT: 85.0 kg WT: 187.393 lb BMI: 34.27 General: alert, no acute distress Skin: warm, dry Head: no trauma, normocephalic Neck: Trachea midline, no adenopathy, no tenderness Eye: normal conjunctiva, sclera clear Cardiovascular: regular rate and rhythm, normal peripheral perfusion Respiratory: Lungs CTA, respirations non labored Gastrointestinal: soft, non distended, no tenderness, no guarding. Back: No tenderness, Normal ROM, Normal alignment. Extremities: no deformity, no trauma Neurological: oriented x 4, LOC appropriate for age, CN II-XII intact, motor strength equal & normal bilaterally, sensation equal & normal bilaterally, speech normal Psychiatric: cooperative, affect appropriate for age, normal judgement, normal psychiatric thoughts. Assessment/Plan 1. Dysuria (R30.0: Dysuria) The patient presented with symptoms suggestive of dysuria. A prompt urine analysis is recommended to evaluate for urinary tract infection. She was advised to increase fluid intake and avoid unnecessary antibiotic use due to potential side effects, while a treatment course will be considered following urine test results. 2. Acute URI (J06.9: Acute upper respiratory infection, unspecified) The patient's symptoms are consistent with an acute upper respiratory infection. Symptomatic treatment is advised, as antiviral initiation is not feasible at this stage. The plan includes prescribing medications to alleviate cough and congestion. Patient education on symptom duration, generally lasting 10 to 12 days, was provided. Orders: benzonatate, 100 mg = 1 cap(s), Oral, TID, X 7 day(s), # 21 cap(s), Refills(s) 0, Pharmacy: [facility]/pharmacy #[id number], 157.5, cm, 05/10/24 9:05:00 EST, Height/Length Dosing, 85, kg, 05/10/24 9:05:00 EST, Weight Dosing dextromethorphan-prom ethazine, 5 mL, Oral, q6hr for cough, 120 mL, Refill(s) 0, [facility]/pharmacy #[id number], 157.5, cm, 05/10/24 9:05:00 EST, Height/Length Dosing, 85, kg, 05/10/24 9:05:00 EST, Weight Dosing I engaged in a comprehensive discussion with the patient regarding the management of her symptoms of an acute upper respiratory infection. I explained that current flu vaccines might not cover circulating strains effectively, contributing to symptom persistence despite vaccination. We discussed that symptomatic relief for cough and congestion will be provided. I also emphasized monitoring blood sugar levels during her illness. Regarding the dysuria, I recommended a urine analysis and encouraged increased fluid intake as an initial approach to symptom management. I discussed the judicious use of antibiotics, highli (more content not included)... [facility] Comment on above: Result Comment: Elec tronically Signed By: Marianne CESAR, Alexi E\.br\Date and Time Signed: 05/10/24 09:51 EST [place] Mamm Screen w/CAD if perf and 3D Bilon 03-31-2024 MA Mamm Screen w/CAD if perf and 3D Wild Exam Date/Time: 03/29/2024 09:40 EST Reason for Exam: Z12.31;Screening Report IMPRESSION: BIRADS 1 NEGATIVE, NORMAL INTERVAL FOLLOW-UP Follow-up: 12 MONTH RECALL Density: There are scattered areas of fibroglandular density. Vascular calcifications: Present. EXAM: MA Mamm Screen w/CAD if perf and 3D Wild DATE: 03/29/2024 9:06 AM CLINICAL HISTORY: Screening, Z12.31. COMPARISONS: 02/27/2023, 07/26/2018, and 09/02/2012. TECHNIQUE: Routine full-field digital mammograms and 3D breast tomosynthesis were obtained of both breasts. FINDINGS: There are no developing densities, suspicious microcalcifications, or areas of architectural distortion identified on the current study. No significant changes are identified from the prior studies, given differences in technique and positioning. Dense Breast: No. CAD analysis was performed and used in the interpretation. Board Certified Radiologists. Accredited by the ACR and FDA. MAMMOGRAPHY IS VERY IMPORTANT TO YOUR HEALTH. THE CURRENT [employer] AND [employer] GUIDELINES RECOMMENDS ANNUAL MAMMOGRAPHY BEGINNING AT AGE 40. THIS FACILITY UTILIZES A REMINDER SYSTEM TO ENSURE ALL PATIENTS RECEIVE REMINDER NOTIFICATIONS AT THE APPROPRIATE TIME BASED ON THE RECOMMENDATIONS OF THIS EXAM. Report Ordering Provider: Loreta Casillas FINAL REPORT Dictated: 03/31/2024 2:17 pm Humza Loving MD Signed (Electronic Signature): 03/31/2024 2:17 pm Signed by: Humza Loving MD Transcribed by: CHAGO Technologist: ANAIS Assessment: BI-RADS Category 1-Negative Recommendation: Normal interval follow-up [facility] Ambulatory Visit Summaryon 1 05-26-2023 Ambulatory Visit Summary Ambulatory Visit Summary SABINA CANELA :1950 Visit Date:03/25/2024 Ambulatory Visit Instructions Your Diagnosis Type 2 diabetes mellitus with hypercholesterolemia Primary hypertension Stage 3a chronic kidney disease (CKD) Moderate depressive disorder Anxiety Class 2 severe obesity with serious comorbidity in adult BMI 35.0-35.9,adult Colon cancer screening Morbid (severe) obesity due to excess calories Your Care Team Attending Physician - Lupillo MSN, APPLE PACKING HEADER-ACTIVITY THERAPISTLoreta Primary Care Physician - Lupillo MSN, APPLE PACKING HEADER-ACTIVITY THERAPISTLoreta This Is Your Medications List aripiprazole (Abilify 5 mg Tab) escitalopram (Lexapro 10 mg Tab) glimepiride (glimepiride 4 mg Tab) levothyroxine (levothyroxine 88 mcg (0.088 mg) Tab) memantine (Namenda 10 mg oral tablet) propranolol (propranolol 120 mg Cap-ER) trazodone (traZODONE 50 mg Tab) Contact prescribing physician if questions or concerns Misc Prescription (32 gauge pen needle 4 mm) Misc Prescription (Alcohol swabs, Jose F, band-aids) Misc Prescription (Glucometer) Misc Prescription (Lancet #100) Misc Prescription (Test Strips) Misc Prescription (alcohol) Misc Prescription (lancets) amlodipine (amLODIPine 5 mg Tab) atorvastatin (Lipitor 40 mg Tab) ergocalciferol (ergocalciferol 50,000 intl units Cap) folic acid (folic acid 1 mg Tab) insulin glargine (Basaglar KwikPen 100 units/mL subcutaneous solution) ketoconazole topical (ketoconazole Top 2% Crm) nystatin topical (nystatin Top 100,000 units/g Pwdr) ondansetron (Zofran 4 mg Tab) ropinirole (Requip 0.25 mg Tab) semaglutide (Rybelsus 7 mg oral tablet) triamcinolone topical (triamcinolone Top 0.025% Crm) Procedures Performed Tubal ligation. Discharge Vitals Temperature (Temporal Artery) 36.7 ???C Heart Rate (Peripheral) 72 Respiratory Rate 18 Blood Pressure 104/66 Height 157.5 cm Height 62 in Weight 87.6 kg Weight 193.125 lb BMI 35.31 What to do next Scheduled Follow-Up Appointments Thursday 9:15 AM EST With: Where: [facility] Thursday 9:00 AM EDT With: Lupillo MORA, Loreta COPE Where: [facility] [address] [place] [address]- Thursday 8:00 AM EST With: Where: [facility] [address] [place] [address]- You Need to Schedule the Following Appointments Follow Up with Lupillo MORA, PRISCA, Loreta Wan When: In 4 months Comments: chronic care Where: [address] [place] [phone] Medications What How Much When Why Instructions Changed aripiprazole (Abilify 5 mg Tab) 1 Tablets By Mouth Every day Duration: 90 Days Pickup at [facility]/pharmacy #[id number] Unchanged escitalopram (Lexapro 10 mg Tab) 1 Tablets By Mouth Every day Pickup at [facility]/pharmacy #[id number] Unchanged glimepiride (glimepiride 4 mg Tab) 1 Tablets By Mouth Every day Pickup at [facility]/pharmacy #[id number] Unchanged levothyroxine (levothyroxine 88 mcg (0.088 mg) Tab) 1 Tablets By Mouth Every day take 1 tablet by mouth every morning ON AN EMPTY STOMACH Pickup at [facility]/pharmacy #[id number] Unchanged memantine (Namenda 10 mg oral tablet) 1 Tablets By Mouth 2 times a day Pickup at [facility]/pharmacy #[id number] Unchanged propranolol (propranolol 120 mg Cap-ER) See instructions TAKE 1 CAPSULE BY MOUTH EVERY DAY Pickup at [facility]/pharmacy #[id number] Unchanged trazodone (traZODONE 50 mg Tab) See instructions TAKE 1 TABLET BY MOUTH EVERYDAY AT BEDTIME Pickup at [facility]/pharmacy #[id number] Unchanged amlodipine (amLODIPine 5 mg Tab) 1 Tablets By Mouth Every day Contact prescribing physician if questions or concerns Unchanged atorvastatin (Lipitor 40 mg Tab) 1 Tablets By Mouth Every day Contact prescribing physician if questions or concerns Unchanged ergocalciferol (ergocalciferol 50,000 intl units Cap) 1 Capsules By Mouth Every week Contact prescribing physician if questions or concerns Unchanged folic acid (folic acid 1 mg Tab) 1 Tablets By Mouth Every day Contact prescribing physician if questions or concerns Unchanged insulin glargine (Basaglar KwikPen 100 units/ mL subcutaneous solution) See instructions 30 units SUBQ every morning with food 20 units SUBQ every evening rotate injection sites Contact prescribing physician if questions or concerns Unchanged ketoconazole topical (ketoconazole Top 2% Crm) 1 Application Topical Every day Contact prescribing physician if questions or concerns Unchanged Misc Prescription (32 gauge pen needle 4 mm) See instructions Use to administer basaglar BID Contact prescribing physician if questions or concerns Unchanged Misc Prescription (Alcohol swabs, Kinde, band-aids) 0 Type 2 diabetes mellitus with hyperglycemia Duration: 30 Days Diabetic supply for a month with 2 refills Contact prescribing physician if questions or concerns Unchanged Misc Prescription (alcohol) See instructions tests BID alc (more content not included)... [facility] Family Medicine Office/Clini c Noteon 03-25-2024 Family Medicine Office/Clinic Note Family Medicine Office/Clinic Note Chief Complaint The patient presents for medication refills and management of blood sugar levels. HPI Staff Patient is here for follow up on Diabetes. How often are you checking your blood sugars? 2 times per day What are your average readings? log book Do you have low blood sugar readings/symptoms? Denies Do you have high blood sugar readings/symptoms? Denies Are you compliant with your diet? yes Do you exercise? no Are you compliant with your medications? Yes Having difficulty affording your medications? No Do you have any of the following symptoms? Vision problems? Denies GI-Nausea/committing/ bloating? Denies Lightheadedness? Denies Paresthesias, Ulcerations or sores? Denies Patient is here for follow up on hypertension. How often are you checking your blood pressure? Daily What are your average readings? good per patient Are you compliant with your diet? yes Do you exercise? no Are you compliant with your medications? yes Are you having difficulty affording your medications? no Do you have side effects from the medication? no Do you have any of the following symptoms? Chest Pain? no Palpitations? no REN/SOB? no Headache? no Peripheral Edema? no Light Headedness? no History of Present Illness 73 Years old Female here for 4 mth f/u DM, CKD HPI staff / Chief Complaint confirmed with the patient Screening: Colon Cancer screening: >10 with a _ year f/u recommended; this patient does NOT have family history of colon cancer Breast cancer screenin02/27/2023 ; this patient does NOT have a family history of breast cancer Pap smear: _ DEXA: 04/01/2023 Labs: 12/29/2023 List of Providers _ LABS Cr/eGFR: eGFR: 54 mL/min/1.73 m2 Low (12/29/23 12:22:00) Creatinine: 1.1 mg/dL (12/29/23 12:22:00) A1c: Hgb A1C %: 6.5 % High (12/01/23 08:43:00) TSH: TSH: 0.65 mcIU/mL (12/01/23 08:43:00) Vit D: Vitamin D 25 Hydroxy: 37.1 ng/mL (06/23/23 06:23:00) LDL: LDL Direct: 55 mg/dL (06/23/23 06:23:00) Lipids: Chol: 123 mg/dL (06/23/23 06:23:00) HDL: 55 mg/dL (06/23/23 06:23:00) LDL Direct: 55 mg/dL (06/23/23 06:23:00) Tri mg/dL (06/23/23 06:23:00) VLDL: 14 mg/dL (06/23/23 06:23:00) Microalbumin: U Microalb: 1.8 mg/dL (06/23/23 06:21:00) She has a history of Type 2 Diabetes Mellitus with hypercholesterolemia and reports her blood sugar levels as overall stable, with occasional elevations possibly related to dietary intake, particularly during the holiday season. No severe hypoglycemic episodes or hospitalizations were reported. The patient also mentioned a morning habit of crushing cans, indicating some level of engagement in daily activities. She is diagnosed with Essential Hypertension, for which she is on antihypertensive medication. There have been no recent episodes of chest pain, headaches, blurry vision, or palpitations. Her past medical history includes Generalized Anxiety Disorder and Major Depressive Disorder, recurrent, moderate. She denies receiving current counseling or psychiatric services but indicates a positive response to her medications, noting feeling happier and more engaged. The absence of additional symptoms such as nausea or headaches is noted. Denies thoughts of harming self. Did have a period of diarrhea as she associated from eating [employer] and it did eventually subside. Review of Systems - General: Denies chest pain, headaches, blurry vision. - Gastrointestinal: Reports diarrhea on a previous occasion, resolves with no current symptoms. - Psychiatric: Reports feeling good, smiling more, and engaging in daily activities. Physical Exam Vitals & Measurements T: 36.7 ???C(Temporal Artery) HR: 72(Peripheral) RR: 18 BP: 104/66 SpO2: 100% HT: 62 in HT: 157.5 cm WT: 87.6 kg WT: 193.125 lb BMI: 35.31 Constitutional: Well-groomed, well-nourished, no signs of acute distress. HEENT: Head normocephalic, sclera is clear. Cardiothoracic: Heart rate and rhythm is regular strong, normal S1 and S2. No murmurs, rubs, or bruits auscultated. No peripheral edema, peripheral pulses +2. Respiratory: Lung sounds are clear throughout, respirations regular nonlabored. Abdomen/GI: Abdomen soft nondistended. Musculoskeletal: Gait is steady, full range of motion. Integument: No rashes or lesions noted to the exposed skin. Scars noted on the back, healing well, not red or draining. Psychiatric: Alert and oriented x 3, pleasant, no mood changes. Smiling and laughing with film writer Assessment/Plan 1. Type 2 diabetes mellitus with hypercholesterolemia (E11.69: Type 2 diabetes mellitus with other specified complication) The importance of the following were all reviewed with the patient: -Take medications as prescribed. -Exercise and diet as discussed. -Monitoring blood sugar and HgBA1c regularly. -Monitoring urine microalbumin regularly to check for kidney damage. -Annual eye exams to prevent blindness. -Proper foot care and regularly (more content not included)... [facility] Comment on above: Result Comment: Elec tronically Signed By: Lupillo MSN, APPLE PACKING HEADER- ACTIVITY THERAPIST, Loreta Wan\.br\Date and Time Signed: 03/25/24 11:49 EST Ambulatory Visit Summaryon 1 05-25-2023 Ambulatory Visit Summary Ambulatory Visit Summary SABINA CANELA :1950 Visit Date:03/24/2024 Ambulatory Visit Instructions Your Diagnosis Annual visit for general adult medical examination without abnormal findings Type 2 diabetes mellitus with hyperglycemia Type 2 diabetes mellitus with stage 3a chronic kidney disease Type 2 diabetes mellitus with hypercholesterolemia Long-term insulin use Moderate depressive disorder Stage 3a chronic kidney disease (CKD) Primary hypertension Anxiety Hypothyroid Breast cancer screening by mammogram BMI 35.0-35.9,adult Your Care Team Attending Physician - Rodrigue NEGRON, Marvin Mehta Primary Care Physician - Lupillo MSN, APPLE PACKING HEADER-ACTIVITY THERAPIST, Loreta Wan This Is Your Medications List Misc Prescription (32 gauge pen needle 4 mm) Misc Prescription (Alcohol swabs, Jose F, band-aids) Misc Prescription (Glucometer) Misc Prescription (Lancet #100) Misc Prescription (Test Strips) Misc Prescription (alcohol) Misc Prescription (lancets) amlodipine (amLODIPine 5 mg Tab) aripiprazole (Abilify 5 mg Tab) atorvastatin (Lipitor 40 mg Tab) ergocalciferol (ergocalciferol 50,000 intl units Cap) escitalopram (Lexapro 10 mg Tab) folic acid (folic acid 1 mg Tab) glimepiride (glimepiride 4 mg Tab) insulin glargine (Basaglar KwikPen 100 units/mL subcutaneous solution) ketoconazole topical (ketoconazole Top 2% Crm) levothyroxine (levothyroxine 88 mcg (0.088 mg) Tab) memantine (Namenda 10 mg oral tablet) nystatin topical (nystatin Top 100,000 units/g Pwdr) ondansetron (Zofran 4 mg Tab) propranolol (propranolol 120 mg Cap-ER) ropinirole (Requip 0.25 mg Tab) semaglutide (Rybelsus 7 mg oral tablet) trazodone (traZODONE 50 mg Tab) triamcinolone topical (triamcinolone Top 0.025% Crm) Procedures Performed Tubal ligation. Discharge Vitals Heart Rate (Peripheral) 70 Blood Pressure 128/76 Height 157.48 cm Height 62 in Weight 87.5 kg Weight 192.904 lb BMI 35.28 What to do next Scheduled Follow-Up Appointments Thursday 10:40 AM EST With: Lupillo MORA, APPLE PACKING HEADER-ACTIVITY THERAPIST, Loreta Wan Where: [address] [address]- Thursday 9:15 AM EST With: Where: [facility] Thursday 8:00 AM EST With: Where: [address] [address]- You Need to Complete the Following [place] Mamm Screen w/CAD if perf and 3D Wild, 03/29/24, Routine, Order for Future Visit, Transport Mode: Wheelchair, Reason: Screening, Reason: Z12.31, No, No, No, Breast cancer screening by mammogram, pp_set_radiology_subs pecialty, Required & Missing, [facility] Medications What How Much When Why Instructions Unchanged amlodipine (amLODIPine 5 mg Tab) 1 Tablets By Mouth Every day Unchanged aripiprazole (Abilify 5 mg Tab) 1 Tablets By Mouth Every day Duration: 30 Days Unchanged atorvastatin (Lipitor 40 mg Tab) 1 Tablets By Mouth Every day Unchanged ergocalciferol (ergocalciferol 50,000 intl units Cap) 1 Capsules By Mouth Every week Unchanged escitalopram (Lexapro 10 mg Tab) 1 Tablets By Mouth Every day Unchanged folic acid (folic acid 1 mg Tab) 1 Tablets By Mouth Every day Unchanged glimepiride (glimepiride 4 mg Tab) 1 Tablets By Mouth Every day Unchanged insulin glargine (Basaglar KwikPen 100 units/ mL subcutaneous solution) See instructions 30 units SUBQ every morning with food 20 units SUBQ every evening rotate injection sites Unchanged ketoconazole topical (ketoconazole Top 2% Crm) 1 Application Topical Every day Unchanged levothyroxine (levothyroxine 88 mcg (0.088 mg) Tab) 1 Tablets By Mouth Every day take 1 tablet by mouth every morning ON AN EMPTY STOMACH Unchanged memantine (Namenda 10 mg oral tablet) 1 Tablets By Mouth 2 times a day Unchanged Misc Prescription (32 gauge pen needle 4 mm) See instructions Use to administer basaglar BID Unchanged Misc Prescription (Alcohol swabs, Kinde, band-aids) 0 Type 2 diabetes mellitus with hyperglycemia Duration: 30 Days Diabetic supply for a month with 2 refills Unchanged Misc Prescription (alcohol) See instructions tests BID alcohol wipes Unchanged Misc Prescription (Glucometer) 0 Type 2 diabetes mellitus with hyperglycemia Unchanged Misc Prescription (Lancet #100) 0 Type 2 diabetes mellitus with hyperglycemia Diagnoses diabetes. 3 month supplies Unchanged Misc Prescription (lancets) See instructions Diabetes check BID Unchanged Misc Prescription (Test Strips) See instructions To be used to check blood sugars BID and as needed. Dx: E11.9 Unchanged nystatin topical (nystatin Top 100,000 units/ g Pwdr) 1 Application Topical 2 times a day Unchanged ondansetron (Zofran 4 mg Tab) 1 Tablets By Mouth Every 8 hours as needed for Nausea/Vomiting Unchanged propranolol (propranolol 120 mg Cap-ER) See instructions TAKE 1 CAPSULE BY MOUTH EVERY DAY Uncha (more content not included)... [facility] Family Medicine Office/Clini c Noteon 03-24-2024 Family Medicine Office/Clinic Note Family Medicine Office/Clinic Note Chief Complaint Medicare Wellness Visit Review of Systems PHQ Score Initial Depression Screen Score: 4 SCORE Physical Exam Vitals & Measurements HR: 70(Peripheral) BP: 128/76 SpO2: 98% HT: 157.48 cm HT: 62 in WT: 87.5 kg WT: 192.904 lb BMI: 35.28 Assessment/Plan 1. Annual visit for general adult medical examination without abnormal findings (Z00.00: Encounter for general adult medical examination without abnormal findings) The patient was given a customized and personalized print out of all the current AHRQ USPSTF???s recommendations for preventative services and all current CDC recommended immunizations, relevant risk recommendations and the following patient brochures were given. Reviewed Medicare Prevention Services checklist. CDC-Falls Prevention and home safety screening reviewed. Patient denies any falls in last 12 months, voices no worry about falling. Exhibits no problems with sitting, standing or ambulation. Patient aware with keeping walk way area free of clutter to prevent tripping and/or falling. [place] Advance Directives reviewed. Documents to be completed, encouraged to bring in for scanning into chart when complete. Patient denies any problems with ADL???s and Instrumental ADL???s. Cognitive screening completed with memory and clock face drawing. No deficits noted. Immunization record reviewed, discussed Shingrix vaccine with educational handout and availability. COVID vaccines have been refused. Allergies and medications reviewed and up to date. No concerns with taking medication as prescribed. Reviewed OTC medications, medication list up to date. Blood tests were reviewed: Discussed what tests need to be updated. Labs were up to date. No concerns with bowel/ bladder. Colonoscopy to speak with Loreta about Cologuard or colonoscopy. Reviewed pain symptoms : denies pain, no pain medications taken. Reviewed all outside providers that patient follows. Last visit summary notes available in chart and/or have been requested. Patient has some signs or symptoms of depression at this time. 15 minutes spent with screening and documentation. PHQ9 screening score 8. Patient never drinks alcohol, denies concerns. 15 minutes spent with screening and documentation. Audit score 0. Follow up scheduled with PCP, 03/25/24. AWV has been scheduled, 03/24/25 @8am. 2. Type 2 diabetes mellitus with hyperglycemia (E11.65: Type 2 diabetes mellitus with hyperglycemia) DM stoplight handout reviewed with signs and symptoms to monitor for and report to PCP. Discussed ADA dietary recommendations with handouts provided. Encouraged to increase daily physical activity, adequate water intake, monitor carbs/chol and fats. Currently taking Glimepiride, Basaglar, and Rhesus daily as directed. Monitoring BS at home with results reviewed with PCP. Follows up yearly with DM foot check, reminded patient to perform at home foot checks to prevent future complications. Patient has completed DM education. Complete DM eye exams completed yearly with visit summary notes available in chart. 3. Type 2 diabetes mellitus with stage 3a chronic kidney disease (E11.22: Type 2 diabetes mellitus with diabetic chronic kidney disease) See #2. Follows up with [facility], Dr. Presley. Office notes available in chart for PCP to review. Patient voices understanding with avoiding NSAID's. Healthy Kidney Nutritional education material reviewed and provided with patient. Goals to keep blood sugars and blood pressure under better control to reduce cardiovascular risk factors. Medications and blood work monitored with visits. Patient continues taking statin medications daily. 4. Type 2 diabetes mellitus with hypercholesterolemia (E11.69: Type 2 diabetes mellitus with other specified complication) See #2. Patient encouraged to eat a diet that is low in saturated fats. Stressed importance of loosing weight and/or maintain healthy BMI. as being overweight does produce more lipids. Monitor alcohol intake and avoid smoking. Risks may also increase with a family history of hyperlipidemia. Patient voices understanding with healthy dietary choices to reduce risk factors associated with CVA. Taking statin medication daily. Will continue to follow up with labs as directed. 5. Long-term insulin use (Z79.4: oil heaterman (current) use of insulin) Patient voices understanding with proper use of insulin dosage. Educational handout reviewed with proper storage and/or care needed for insulin. Follows up with PCP with needed labs, DM supplies and dosage adjustments as needed. Reviewed available sites that can be used to administer Insulin, patient voices understanding. 6. Moderate depressive disorder (F33.1: Major depressive disorder, recurrent, moderate) PHQ-9 completed with score 8. Voices no suicidal ideations. Taking Lexapro, Abilify, and trazodone daily, patient voices effectiveness with this medication. Educational handouts reviewed with signs and symptoms to monito (more content not included)... Normal [facility] Comment on above: Result Comment: Elec tronically Signed By: Marianne CESAR, Alexi Calhoun\.br\Date and Time Signed: 03/24/24 09:41 EST\.br\Electronically Co-Signed By: Jay Jay LYNCH, Effie Parker\.br\Date and Time Co-Signed: 03/24/24 09:31 EST ECG 12 lead ECGon 02-23-2024 ECG 12 lead ECG [facility] [place] [address] [place] [address] Electrocardiograph Report Signed Patient: Sabina Canela MR#: [id number] : 1950 Acct:[id number] Age/Sex: 73 / F ADM Date: 02/23/24 Loc: Room: Type: [facility] Attending Dr: Ginger LONGO Ordering Provider: QING Oliva Date of Service: 02/23/24 ECG/ECG 12 lead ECG: Diabetes;Essential hypertension Copies to: Test Reason : Blood Pressure : */* mmHG Vent. Rate : 75 BPM Atrial Rate : 75 BPM P-R Int : 184 ms QRS Dur : 78 ms QT Int : 352 ms P-R-T Axes : -3 63 -4 degrees QTcB Int : 393 ms Normal sinus rhythm T wave abnormality, consider inferior ischemia Abnormal ECG Confirmed by Cristina Roberson ([id number]) on 02/23/2024 11:05:46 AM Referred By: Electronically Signed By: Cristina Roberson Transcribed By: MUS Signed By Cristina Roberson MD 4 1105 Normal [facility] Alanine aminotransferase [En zymatic activity/volume] in Serum or PlasmaOrdered By: Ginger Roland on 02-09-2024 ALT [Catalytic activity/Vol] 27 U/L Normal [facility] Comment on above: Order Comment: Reaso n for Exam Diabetes Reason for Exam Essential hypertension;Hypothyroidism, unspecified;Hyperlipi Reason for Exam Vitamin D deficiency Performed By: #### G LULS #### Point of Care testing , ALT [Catalytic activity/Vol] Alanine aminotransferase [Enzymatic activity/volume] in Serum or Plasma [facility] Albumin [Mass/volume] in Ser um or Plasma by Bromocresol green (BCG) dye binding methoOrdered By: Ginger Roland on 02-09-2024 Albumin BCG dye [Mass/Vol] 3.8 g/dL 3.5-5.7 [facility] Albumin BCG dye [Mass/Vol] Albumin [Mass/volume] in Serum or Plasma by Bromocresol green (BCG) dye binding metho 3.5-5.7 [facility] Alkaline phosphatase [Enzyma tic activity/volume] in Serum or PlasmaOrdered By: Ginger Roland on 02-09-2024 ALP [Catalytic activity/Vol] 65 U/L Normal [facility] Comment on above: Order Comment: Reaso n for Exam Diabetes Reason for Exam Essential hypertension;Hypothyroidism, unspecified;Hyperlipi Reason for Exam Vitamin D deficiency Performed By: #### G LULS #### Point of Care testing , ALP [Catalytic activity/Vol] Alkaline phosphatase [Enzymatic activity/volume] in Serum or Plasma [facility] Aspartate aminotransferase [ Enzymatic activity/volume] in Serum or PlasmaOrdered By: Ginger Roland on 02-09-2024 AST [Catalytic activity/Vol] 26 U/L Normal [facility] Comment on above: Order Comment: Reaso n for Exam Diabetes Reason for Exam Essential hypertension;Hypothyroidism, unspecified;Hyperlipi Reason for Exam Vitamin D deficiency Performed By: #### G LULS #### Point of Care testing , AST [Catalytic activity/Vol] Aspartate aminotransferase [Enzymatic activity/volume] in Serum or Plasma [facility] Automated basophil %Ordered By: Ginger Roland on 02-09-2024 Basophils/100 WBC (Bld) 0.8 % Normal . [facility] Comment on above: Order Comment: Reaso n for Exam Diabetes Performed By: #### G LULS #### Point of Care testing , Automated basophil countOrde red By: Ginger Roland on 02-09-2024 Basophils (Bld) [#/Vol] 0.1 10*3/uL Normal 0.0-0.2 [facility] Comment on above: Order Comment: Reaso n for Exam Diabetes Result Comment: PERF ORMED BY: [facility] [address] [address] PATHOLOGIST [employer] TECHNICAL ASSISTANT ARIEL DILL M.D. Performed By: #### G LULS #### Point of Care testing , Automated blood monocyte cou ntOrdered By: Ginger Roland on 02-09-2024 Monocytes (Bld) [#/Vol] 0.8 10*3/uL Normal 0.0-0.8 [facility] Comment on above: Order Comment: Reaso n for Exam Diabetes Performed By: #### G LULS #### Point of Care testing , Automated eosinophil %Ordere d By: Ginger Roland on 02-09-2024 Eosinophils/100 WBC (Bld) 1.6 % Normal . [facility] Comment on above: Order Comment: Reaso n for Exam Diabetes Performed By: #### G LULS #### Point of Care testing , Automated eosinophil countOr dered By: Ginger Roland on 02-09-2024 Eosinophils (Bld) [#/Vol] 0.1 10*3/uL Normal 0.0-0.45 [facility] Comment on above: Order Comment: Reaso n for Exam Diabetes Performed By: #### G LULS #### Point of Care testing , Automated monocyte %Ordered By: Ginger Roland on 02-09-2024 Monocytes/100 WBC (Bld) 11.7 % Normal . [facility] Comment on above: Order Comment: Reaso n for Exam Diabetes Performed By: #### G LULS #### Point of Care testing , Automated neutrophil %Ordere d By: Ginger Roland on 02-09-2024 Neutrophils/100 WBC (Bld) 58.3 % Normal . [facility] Comment on above: Order Comment: Reaso n for Exam Diabetes Performed By: #### G LULS #### Point of Care testing , Basophils Auto (Bld) [#/Vol] Ordered By: Ginger Roland on 02-09-2024 Basophils (Bld) [#/Vol] Automated basophil count 0.0-0.2 [facility] Basophils/100 WBC Auto (Bld) Ordered By: Ginger Roland on 02-09-2024 Basophils/100 WBC (Bld) Automated basophil % . [facility] Bilirubin.total [Mass/volume ] in Serum or PlasmaOrdered By: Ginger Roland on 02-09-2024 Bilirubin [Mass/Vol] 0.6 mg/dL Normal 0.3-1.0 [facility] Comment on above: Order Comment: Reaso n for Exam Diabetes Reason for Exam Essential hypertension;Hypothyroidism, unspecified;Hyperlipi Reason for Exam Vitamin D deficiency Performed By: #### G LULS #### Point of Care testing , Bilirubin [Mass/Vol] Bilirubin.total [Mass/volume] in Serum or Plasma 0.3-1.0 [facility] Calcium [Mass/volume] in Ser um or PlasmaOrdered By: Ginger Roland on 02-09-2024 Calcium [Mass/Vol] 9.6 mg/dL Normal 8.6-10.3 [facility] Comment on above: Order Comment: Reaso n for Exam Diabetes Reason for Exam Essential hypertension;Hypothyroidism, unspecified;Hyperlipi Reason for Exam Vitamin D deficiency Performed By: #### G LULS #### Point of Care testing , Calcium [Mass/Vol] Calcium [Mass/volume ] in Serum or Plasma 8.6-10.3 [facility] Carbon dioxide, total [Moles /volume] in Serum or PlasmaOrdered By: Ginger Roland on 02-09-2024 CO2 [Moles/Vol] 28.8 mmol/L Normal 21.0-31.0 [facility] Comment on above: Order Comment: Reaso n for Exam Diabetes Reason for Exam Essential hypertension;Hypothyroidism, unspecified;Hyperlipi Reason for Exam Vitamin D deficiency Performed By: #### G LULS #### Point of Care testing , CO2 [Moles/Vol] Carbon dioxide, tota l [Moles/volume] in Serum or Plasma 21.0-31.0 [facility] Chloride [Moles/volume] in S martin or PlasmaOrdered By: Ginger Roland on 02-09-2024 Chloride [Moles/Vol] 104 mmol/L Normal 98-107 [facility] Comment on above: Order Comment: Reaso n for Exam Diabetes Reason for Exam Essential hypertension;Hypothyroidism, unspecified;Hyperlipi Reason for Exam Vitamin D deficiency Performed By: #### G LULS #### Point of Care testing , Chloride [Moles/Vol] Chloride [Moles/volume] in Serum or Plasma 98-107 [facility] Cholesterol [Mass/volume] in Serum or PlasmaOrdered By: Ginger Roland on 02-09-2024 Cholesterol [Mass/Vol] 121 mg/dL Low 140-200 [facility] Comment on above: Chol less than 200 m g/dl low riskChol 201-239 mg/dl borderline riskChol 240 mg/dl and greater high risk Order Comment: Reaso n for Exam Diabetes Reason for Exam Essential hypertension;Hypothyroidism, unspecified;Hyperlipi Reason for Exam Vitamin D deficiency Result Comment: Chol less than 200 mg/dl low risk Chol 201-239 mg/dl borderline risk Chol 240 mg/dl and greater high risk Performed By: #### G LULS #### Point of Care testing , Cholesterol [Mass/Vol] Cholesterol [Mass/volume] in Serum or Plasma Low 140-200 [facility] Comment on above: Chol less than 200 m g/dl low riskChol 201-239 mg/dl borderline riskChol 240 mg/dl and greater high risk Cholesterol in HDL [Mass/vol ume] in Serum or PlasmaOrdered By: Ginger Roland on 02-09-2024 Cholesterol in HDL [Mass/Vol] Serum or plasma high density lipoprotein (HDL) cholesterol measurement - [facility] Comment on above: HDL CHOL ATP-III CLA SSIFICATION Cardiovascular RiskHDL > or equal to 60 mg/dL LOWHDL < 40 mg/dL HIGH Cholesterol in LDL Calc [Mas s/Vol]Ordered By: Ginger Roland on 02-09-2024 Cholesterol in LDL [Mass/Vol] 45 mg/dL 0-100 [facility] Comment on above: LDL ATP III CLASSIFI CATIONLDL less than 100 mg/dL OptimalLDL 100-129 mg/dL Near or above optimalLDL 130-159 mg/dL Borderline highLDL 160-189 mg/dL HighLDL greater than 189 mg/dL Very high Cholesterol in LDL [Mass/Vol] Cholesterol in LDL [Mass/volume] in Serum or Plasma by calculation 0100 [facility] Comment on above: LDL ATP III CLASSIFI CATIONLDL less than 100 mg/dL OptimalLDL 100-129 mg/dL Near or above optimalLDL 130-159 mg/dL Borderline highLDL 160-189 mg/dL HighLDL greater than 189 mg/dL Very high Cholesterol in VLDL Calc [Ma ss/Vol]Ordered By: Ginger Roland on 02-09-2024 Cholesterol in VLDL [Mass/Vol] 10 mg/dL [facility] Cholesterol in VLDL [Mass/Vol] Cholesterol in VLDL [Mass/volume] in Serum or Plasma by calculation [facility] Complete Blood Count Auto Di ffon 02-09-2024 Mean Corpuscular HGB Conc 33.0 g/dL Normal 32.0-35.0 [facility] Comment on above: Order Comment: Reaso n for Exam Diabetes Performed By: #### G LULS #### Point of Care testing , NRBC% 0.1 /100{WBC} Normal 0-0.5 [facility] Comment on above: Order Comment: Reaso n for Exam Diabetes Performed By: #### G LULS #### Point of Care testing , Comprehensive Metabolic Pane long 02-09-2024 Albumin [Mass/Vol] 3.8 g/dL Normal 3.5-5.7 [facility] Comment on above: Order Comment: Reaso n for Exam Diabetes Reason for Exam Essential hypertension;Hypothyroidism, unspecified;Hyperlipi Reason for Exam Vitamin D deficiency Performed By: #### G LULS #### Point of Care testing , GFR/1.73 sq M.predicted MDRD (S/P/Bld) [Vol rate/Area] mL/min/{1.73_m2} Normal [facility] Comment on above: Order Comment: Reaso n for Exam Diabetes Reason for Exam Essential hypertension;Hypothyroidism, unspecified;Hyperlipi Reason for Exam Vitamin D deficiency Performed By: #### G LULS #### Point of Care testing , Creatinine [Mass/volume] in Serum or PlasmaOrdered By: Ginger Roland on 02-09-2024 Creatinine [Mass/Vol] 0.99 mg/dL Normal 0.60-1.20 [facility] Comment on above: Order Comment: Reaso n for Exam Diabetes Reason for Exam Essential hypertension;Hypothyroidism, unspecified;Hyperlipi Reason for Exam Vitamin D deficiency Performed By: #### G LULS #### Point of Care testing , Creatinine [Mass/Vol] Creatinine [Mass/volume] in Serum or Plasma 0.60-1.20 [facility] Eosinophils Auto (Bld) [#/Vo l]Ordered By: Ginger Roland on 02-09-2024 Eosinophils (Bld) [#/Vol] Automated eosinophil count 0.0-0.45 [facility] Eosinophils/100 WBC Auto (Bl d)Ordered By: Ginger Roland on 02-09-2024 Eosinophils/100 WBC (Bld) Automated eosinophil % . [facility] Erythrocyte distribution wid th Auto (RBC) [Ratio]Ordered By: Ginger Roland on 02-09-2024 Erythrocyte distribution width (RBC) [Ratio] Erythrocyte distribution width [Ratio] by Automated count 11.9-15.3 [facility] Erythrocyte distribution wid th [Ratio] by Automated countOrdered By: Ginger Roland on 02-09-2024 Erythrocyte distribution width (RBC) [Ratio] 13.3 % Normal 11.9-15.3 [facility] Comment on above: Order Comment: Reaso n for Exam Diabetes Performed By: #### G LULS #### Point of Care testing , Erythrocytes [#/volume] in B lood by Automated countOrdered By: Ginger Roland on 02-09-2024 RBC (Bld) [#/Vol] 4.21 10*6/uL Normal 3.60-5.00 [facility] Comment on above: Order Comment: Reaso n for Exam Diabetes Performed By: #### G LULS #### Point of Care testing , Globulin Calc (S) [Mass/Vol] Ordered By: Ginger Roland on 02-09-2024 Globulin (S) [Mass/Vol] Serum globulin measurement by calculation (mass/volume) [facility] Glucose [Mass/volume] in Ser um or PlasmaOrdered By: Ginger Roland on 02-09-2024 Glucose [Mass/Vol] 91 mg/dL Normal 70-100 [facility] Comment on above: ADA recommended refe rence rangeRandom Glucose Reference Range is dependent on time and content of last meal. Glucose of more than 200 mg/dL in a nonstressed, ambulatory subject supports the diagnosis of Diabetes Mellitus. Order Comment: Reaso n for Exam Diabetes Reason for Exam Essential hypertension;Hypothyroidism, unspecified;Hyperlipi Reason for Exam Vitamin D deficiency Result Comment: [place] Glucose Reference Range is dependent on time and content of last meal. Glucose of more than 200 mg/dL in a nonstressed, ambulatory subject supports the diagnosis of Diabetes Mellitus. ADA recommended reference range Performed By: #### G LULS #### Point of Care testing , Glucose [Mass/Vol] Glucose [Mass/volume ] in Serum or Plasma 70-100 [facility] Comment on above: ADA recommended refe rence rangeRandom Glucose Reference Range is dependent on time and content of last meal. Glucose of more than 200 mg/dL in a nonstressed, ambulatory subject supports the diagnosis of Diabetes Mellitus. Hematocrit Auto (Bld) [Volum e fraction]Ordered By: Ginger Roland on 02-09-2024 Hematocrit (Bld) [Volume fraction] Hematocrit [Volume Fraction] of Blood by Automated count 34.0-46.4 [facility] Hematocrit [Volume Fraction] of Blood by Automated countOrdered By: Ginger Roland on 02-09-2024 Hematocrit (Bld) [Volume fraction] 38.2 % Normal 34.0-46.4 [facility] Comment on above: Order Comment: Reaso n for Exam Diabetes Performed By: #### G LULS #### Point of Care testing , Hemoglobin [Mass/volume] in BloodOrdered By: Ginger Roland on 02-09-2024 Hemoglobin (Bld) [Mass/Vol] 12.6 g/dL Normal 11.8-15.4 [facility] Comment on above: Order Comment: Reaso n for Exam Diabetes Performed By: #### G LULS #### Point of Care testing , Hemoglobin (Bld) [Mass/Vol] Hemoglobin [Mass/volume] in Blood 11.8-15.4 [facility] Leukocytes [#/volume] correc annel for nucleated erythrocytes in Blood by Automated counOrdered By: Ginger Roland on 02-09-2024 WBC corrected for nucl RBC Auto (Bld) [#/Vol] 6.5 10*3/uL 3.8-11.6 [facility] WBC corrected for nucl RBC Auto (Bld) [#/Vol] Leukocytes [#/volume] corrected for nucleated erythrocytes in Blood by Automated coun 3.8-11.6 [facility] Leukocytes [#/volume] in Blo od by Automated countOrdered By: Ginger Roland on 02-09-2024 WBC (Bld) [#/Vol] 6.5 10*3/uL Normal 3.8-11.6 [facility] Comment on above: Order Comment: Reaso n for Exam Diabetes Performed By: #### G LULS #### Point of Care testing , Lipid Panelon 02-09-2024 LDL Cholesterol,Calculate d 45 mg/dL Normal 0-100 [facility] Comment on above: Order Comment: Reaso n for Exam Diabetes Reason for Exam Essential hypertension;Hypothyroidism, unspecified;Hyperlipi Reason for Exam Vitamin D deficiency Result Comment: LDL ATP III CLASSIFICATION LDL less than 100 mg/dL Optimal LDL 100-129 mg/dL Near or above optimal LDL 130-159 mg/dL Borderline high LDL 160-189 mg/dL High LDL greater than 189 mg/dL Very high Performed By: #### G LULS #### Point of Care testing , Triglyceride w/Reflex 52 mg/dL Normal 0-149 [facility] Comment on above: Order Comment: Reaso n for Exam Diabetes Reason for Exam Essential hypertension;Hypothyroidism, unspecified;Hyperlipi Reason for Exam Vitamin D deficiency Result Comment: TRIG ATP III CLASSIFICATION TRIG less than 150 mg/dL Normal TRIG 150-199 mg/dL Borderline high TRIG 200-500 mg/dL High TRIG greater than 500 mg/dL Very high Standard traceable to the Center for Disease Conrtrol and Prevention (CDC) test method. Performed By: #### G LULS #### Point of Care testing , VLDL CHOLESTEROL 10 mg/dL Normal [facility] Comment on above: Order Comment: Reaso n for Exam Diabetes Reason for Exam Essential hypertension;Hypothyroidism, unspecified;Hyperlipi Reason for Exam Vitamin D deficiency Performed By: #### G LULS #### Point of Care testing , Lymphocytes Auto (Bld) [#/Vo l]Ordered By: Ginger Roland on 02-09-2024 Lymphocytes (Bld) [#/Vol] Lymphocytes [#/volume] in Blood by Automated count 1.00-4.8 [facility] Lymphocytes [#/volume] in Bl ood by Automated countOrdered By: Ginger Roland on 02-09-2024 Lymphocytes (Bld) [#/Vol] 1.8 10*3/uL Normal 1.00-4.8 [facility] Comment on above: Order Comment: Reaso n for Exam Diabetes Performed By: #### G LULS #### Point of Care testing , Lymphocytes/100 WBC Auto (Bl d)Ordered By: Ginger Roland on 02-09-2024 Lymphocytes/100 WBC (Bld) Lymphocytes/100 leukocytes in Blood by Automated count . [facility] Lymphocytes/100 leukocytes i n Blood by Automated countOrdered By: Ginger Roland on 02-09-2024 Lymphocytes/100 WBC (Bld) 27.6 % Normal . [facility] Comment on above: Order Comment: Reaso n for Exam Diabetes Performed By: #### G LULS #### Point of Care testing , MCH Auto (RBC) [Entitic mass ]Ordered By: Ginger Roland on 02-09-2024 MCH (RBC) [Entitic mass] MCH [Entitic mass] by Automated count 24.7-34.3 [facility] MCH [Entitic mass] by Automa annel countOrdered By: Ginger Roland on 02-09-2024 MCH (RBC) [Entitic mass] 29.9 pg Normal 24.7-34.3 [facility] Comment on above: Order Comment: Reaso n for Exam Diabetes Performed By: #### G LULS #### Point of Care testing , MCHC Auto (RBC) [Mass/Vol]Or dered By: Ginger Roland on 02-09-2024 MCHC (RBC) [Mass/Vol] 33.0 g/dL 32.0-35.0 [facility] MCHC (RBC) [Mass/Vol] MCHC [Mass/volume] by Automated count 32.0-35.0 [facility] MCV Auto (RBC) [Entitic vol] Ordered By: Ginger Roland on 02-09-2024 MCV (RBC) [Entitic vol] MCV [Entitic volume] by Automated count 80-100 [facility] MCV [Entitic volume] by Auto mated countOrdered By: Ginger Roland on 02-09-2024 MCV (RBC) [Entitic vol] 90.6 fL Normal 80-100 [facility] Comment on above: Order Comment: Reaso n for Exam Diabetes Performed By: #### G LULS #### Point of Care testing , Microalbumin [Mass/volume] i n UrineOrdered By: Ginger Roland on 02-09-2024 Albumin DL <= 20 mg/L (U) [Mass/Vol] mg/dL Normal 0.0-1.8 [facility] Comment on above: Order Comment: Reaso n for Exam Essential hypertension;Hypothyroidism, unspecified;Hyperlipi Result Comment: PERF ORMED BY: [facility] [place] [address] PATHOLOGIST B[employer] LIBRARY TECHNICAL ASSISTANT ARIEL DILL M.D. Performed By: #### G LULS #### Point of Care testing , Albumin DL <= 20 mg/L (U) [Mass/Vol] Microalbumin [Mass/volume] in Urine 0.0-1.8 [facility] Monocytes Auto (Bld) [#/Vol] Ordered By: Ginger Roland on 02-09-2024 Monocytes (Bld) [#/Vol] Automated blood monocyte count 0.0-0.8 [facility] Monocytes/100 WBC Auto (Bld) Ordered By: Ginger Roland on 02-09-2024 Monocytes/100 WBC (Bld) Automated monocyte % . [facility] Neutrophils Auto (Bld) [#/Vo l]Ordered By: Ginger Roland on 02-09-2024 Neutrophils (Bld) [#/Vol] Neutrophils [#/volume] in Blood by Automated count 1.8-7.7 [facility] Neutrophils [#/volume] in Bl ood by Automated countOrdered By: Ginger Roland on 02-09-2024 Neutrophils (Bld) [#/Vol] 3.8 10*3/uL Normal 1.8-7.7 [facility] Comment on above: Order Comment: Reaso n for Exam Diabetes Performed By: #### G LULS #### Point of Care testing , Neutrophils/100 WBC Auto (Bl d)Ordered By: Ginger Roland on 02-09-2024 Neutrophils/100 WBC (Bld) Automated neutrophil % . [facility] No Panel InformationOrdered By: Ginger Roland on 02-09-2024 Estimated GFR (CKD-EPI) > 60.0 mL/Min [facility] Pharmacy Creatinine Clearance (Chem N/A [facility] Nucleated erythrocytes [Pres ence] in Blood by Automated countOrdered By: Ginger Roland on 02-09-2024 Nucleated RBC Auto Ql (Bld) 0.1 /100{WBC} 0-0.5 [facility] Nucleated RBC Auto Ql (Bld) Nucleated erythrocytes [Presence] in Blood by Automated count 0-0.5 [facility] Platelet mean volume Auto (B ld) [Entitic vol]Ordered By: Ginger Roland on 02-09-2024 Platelet mean volume (Bld) [Entitic vol] Platelet mean volume [Entitic volume] in Blood by Automated count 6.3-10.7 [facility] Platelet mean volume [Entiti c volume] in Blood by Automated countOrdered By: Ginger Roland on 02-09-2024 Platelet mean volume (Bld) [Entitic vol] 8.9 fL Normal 6.3-10.7 [facility] Comment on above: Order Comment: Reaso n for Exam Diabetes Performed By: #### G LULS #### Point of Care testing , Platelets Auto (Bld) [#/Vol] Ordered By: Ginger Roland on 02-09-2024 Platelets (Bld) [#/Vol] Platelets [#/volume] in Blood by Automated count 150-450 [facility] Platelets [#/volume] in Bloo d by Automated countOrdered By: Ginger Roland on 02-09-2024 Platelets (Bld) [#/Vol] 191 10*3/uL Normal 150-450 [facility] Comment on above: Order Comment: Reaso n for Exam Diabetes Performed By: #### G LULS #### Point of Care testing , Potassium [Moles/volume] in Serum or PlasmaOrdered By: Ginger Roland on 02-09-2024 Potassium [Moles/Vol] 4.3 mmol/L Normal 3.5-5.1 [facility] Comment on above: Order Comment: Reaso n for Exam Diabetes Reason for Exam Essential hypertension;Hypothyroidism, unspecified;Hyperlipi Reason for Exam Vitamin D deficiency Performed By: #### G LULS #### Point of Care testing , Potassium [Moles/Vol] Potassium [Moles/volume] in Serum or Plasma 3.5-5.1 [facility] Protein [Mass/volume] in Ser um or PlasmaOrdered By: Ginger Roland on 02-09-2024 Protein [Mass/Vol] 6.2 g/dL Low 6.4-8.9 [facility] Comment on above: Order Comment: Reaso n for Exam Diabetes Reason for Exam Essential hypertension;Hypothyroidism, unspecified;Hyperlipi Reason for Exam Vitamin D deficiency Performed By: #### G LULS #### Point of Care testing , Protein [Mass/Vol] Protein [Mass/volume ] in Serum or Plasma Low 6.4-8.9 [facility] RBC Auto (Bld) [#/Vol]Ordere d By: Ginger Roland on 02-09-2024 RBC (Bld) [#/Vol] Erythrocytes [#/volume] in Blood by Automated count 3.60-5.00 [facility] Serum globulin measurement b y calculation (mass/volume)Ordered By: Ginger Roland on 02-09-2024 Globulin (S) [Mass/Vol] 2.4 g/dL Normal [facility] Comment on above: Order Comment: Reaso n for Exam Diabetes Reason for Exam Essential hypertension;Hypothyroidism, unspecified;Hyperlipi Reason for Exam Vitamin D deficiency Performed By: #### G LULS #### Point of Care testing , Serum or plasma albumin/glob ulin mass ratioOrdered By: Ginger Roland on 02-09-2024 Albumin/Globulin [Mass ratio] 1.6 {ratio} Normal [facility] Comment on above: Order Comment: Reaso n for Exam Diabetes Reason for Exam Essential hypertension;Hypothyroidism, unspecified;Hyperlipi Reason for Exam Vitamin D deficiency Performed By: #### G LULS #### Point of Care testing , Albumin/Globulin [Mass ratio] Serum or plasma albumin/globulin mass ratio [facility] Serum or plasma anion gap de terminationOrdered By: Ginger Roalnd on 02-09-2024 Anion gap [Moles/Vol] 8.5 mmol/L Normal 6.0-15.0 [facility] Comment on above: Order Comment: Reaso n for Exam Diabetes Reason for Exam Essential hypertension;Hypothyroidism, unspecified;Hyperlipi Reason for Exam Vitamin D deficiency Performed By: #### G LULS #### Point of Care testing , Anion gap [Moles/Vol] Serum or plasma an ion gap determination 6.0-15.0 [facility] Serum or plasma high density lipoprotein (HDL) cholesterol measurementOrdered By: Ginger Roland on 02-09-2024 Cholesterol in HDL [Mass/Vol] 66 mg/dL Normal 23-92 [facility] Comment on above: HDL CHOL ATP-III CLA SSIFICATION Cardiovascular RiskHDL > or equal to 60 mg/dL LOWHDL < 40 mg/dL HIGH Order Comment: Reaso n for Exam Diabetes Reason for Exam Essential hypertension;Hypothyroidism, unspecified;Hyperlipi Reason for Exam Vitamin D deficiency Result Comment: HDL CHOL ATP-III CLASSIFICATION Cardiovascular Risk HDL > or equal to 60 mg/dL LOW HDL < 40 mg/dL HIGH Performed By: #### G LULS #### Point of Care testing , Serum or plasma total choles terol/high density lipoprotein (HDL) cholesterol mass ratOrdered By: Ginger Roland on 02-09-2024 Cholesterol.total/Cho lesterol in HDL [Mass ratio] 1.8 {ratio} Normal <5.0 [facility] Comment on above: Order Comment: Reaso n for Exam Diabetes Reason for Exam Essential hypertension;Hypothyroidism, unspecified;Hyperlipi Reason for Exam Vitamin D deficiency Performed By: #### G LULS #### Point of Care testing , Cholesterol.total/Cho lesterol in HDL [Mass ratio] Serum or plasma total cholesterol/high density lipoprotein (HDL) cholesterol mass rat <5.0 [facility] Sodium [Moles/volume] in Ser um or PlasmaOrdered By: Ginger Roland on 02-09-2024 Sodium [Moles/Vol] 137 mmol/L Normal 136-145 [facility] Comment on above: Order Comment: Reaso n for Exam Diabetes Reason for Exam Essential hypertension;Hypothyroidism, unspecified;Hyperlipi Reason for Exam Vitamin D deficiency Performed By: #### G LULS #### Point of Care testing , Sodium [Moles/Vol] Sodium [Moles/volume ] in Serum or Plasma 136-145 [facility] Thyroid Stim Hormone w/Rflxo n 02-09-2024 Thyroid Stim Hormone w/Rflx 0.96 u[iU]/mL Normal 0.45-5.33 [facility] Comment on above: Order Comment: Reaso n for Exam Diabetes Reason for Exam Essential hypertension;Hypothyroidism, unspecified;Hyperlipi Reason for Exam Vitamin D deficiency Performed By: #### G LULS #### Point of Care testing , Thyrotropin [Units/volume] i n Serum or PlasmaOrdered By: Ginger Roland on 02-09-2024 TSH Qn 0.96 m[IU]/L 0.45-5.33 [facility] TSH Qn Thyrotropin [Units/volume] in Serum or Plasma 0.45-5.33 [facility] Triglyceride [Mass/volume] i n Serum or PlasmaOrdered By: Ginger Roland on 02-09-2024 Triglyceride [Mass/Vol] 52 mg/dL 0-149 [facility] Comment on above: TRIG ATP III CLASSIF ICATIONTRIG less than 150 mg/dL NormalTRIG 150-199 mg/dL Borderline highTRIG 200-500 mg/dL High TRIG greater than 500 mg/dL Very highStandard traceable to the Center for Disease Conrtrol and Prevention (CDC) test method. Triglyceride [Mass/Vol] Triglyceride [Mass/volume] in Serum or Plasma 0-149 [facility] Comment on above: TRIG ATP III CLASSIF ICATIONTRIG less than 150 mg/dL NormalTRIG 150-199 mg/dL Borderline highTRIG 200-500 mg/dL High TRIG greater than 500 mg/dL Very highStandard traceable to the Center for Disease Conrtrol and Prevention (CDC) test method. Urea nitrogen [Mass/volume] in Serum or PlasmaOrdered By: Ginger Roland on 02-09-2024 Urea nitrogen [Mass/Vol] 16 mg/dL Normal 10-28 [facility] Comment on above: Order Comment: Reaso n for Exam Diabetes Reason for Exam Essential hypertension;Hypothyroidism, unspecified;Hyperlipi Reason for Exam Vitamin D deficiency Performed By: #### G LULS #### Point of Care testing , Urea nitrogen [Mass/Vol] Urea nitrogen [Mass/volume] in Serum or Plasma 10-28 [facility] Vitamin B12 ser/plasOrdered By: Ginger Roland on 02-09-2024 Cobalamin (Vitamin B12) [Mass/Vol] 258 pg/mL Normal 180-914 [facility] Comment on above: Order Comment: Reaso n for Exam Diabetes Reason for Exam Essential hypertension;Hypothyroidism, unspecified;Hyperlipi Reason for Exam Vitamin D deficiency Performed By: #### G LULS #### Point of Care testing , Cobalamin (Vitamin B12) [Mass/Vol] Vitamin B12 ser/plas 180-914 [facility] Vitamin D 25 Hydroxy Totalon 02-09-2024 Vitamin D 25 Hydroxy Total 63.9 ng/mL Normal 30-100 [facility] Comment on above: Order Comment: Reaso n for Exam Diabetes Reason for Exam Essential hypertension;Hypothyroidism, unspecified;Hyperlipi Reason for Exam Vitamin D deficiency Result Comment: AMAYA MIN D STATUS 25([place])VITAMIN D RANGE (ng/mL) Deficient <20 Insufficient 20 to <30 Sufficient 30 to 100 Reference: Pedro Luis Kim, Alicia MONTIEL, et al. Evaluation,treatment, and prevention of vitamin D deficiency; an Endocrine Society clinical practice guideline. JCEM. 2010; 96(7):191-. PERFORMED BY: [facility] [address] [place] [address] PATHOLOGIST BIND[employer] LIBRARY TECHNICAL ASSISTANT ARIEL DILL M.D. Performed By: #### G LULS #### Point of Care testing , Vitamin D+Metabolites [Mass/ volume] in Serum or PlasmaOrdered By: Ginger Roland on 02-09-2024 Vitamin D+Metabolites [Mass/Vol] 63.9 ng/mL 30-100 [facility] Comment on above: VITAMIN D STATUS 25( [place])VITAMIN D RANGE (ng/mL) Deficient <20 Insufficient 20 to <30Sufficient 30 to 100Reference: Pedro Luis Kim, Alicia MONTIEL, et al. Evaluation,treatment, and prevention of vitamin D deficiency; an Endocrine Society clinical practice guideline. JCEM. 2010; 96(7):1911-30. Vitamin D+Metabolites [Mass/Vol] Vitamin D+Metabolites [Mass/volume] in Serum or Plasma 30-100 [facility] Comment on above: VITAMIN D STATUS 25( [place])VITAMIN D RANGE (ng/mL) Deficient <20 Insufficient 20 to <30Sufficient 30 to 100Reference: Pedro Luis Kim, Alicia MONTIEL, et al. Evaluation,treatment, and prevention of vitamin D deficiency; an Endocrine Society clinical practice guideline. JCEM. 2010; 96(7):1911-30. WBC Auto (Bld) [#/Vol]Ordere d By: Ginger Roland on 02-09-2024 WBC (Bld) [#/Vol] Leukocytes [#/volume ] in Blood by Automated count 3.8-11.6 [facility] Ambulatory Visit Summaryon 1 Ambulatory Visit Summary Ambulatory Visit Summary SABINA CANELA :1950 Visit Date:02/02/2024 Ambulatory Visit Instructions Your Diagnosis Moderate depressive disorder Anxiety Type 2 diabetes mellitus with hyperglycemia Class 1 obesity due to excess calories in adult BMI 37.0-37.9, adult Your Care Team Attending Physician - Lupillo MORA, BRAYAN-Loreta NAVA Primary Care Physician - Lupillo MORA, BRAYAN-Loreta NAVA This Is Your Medications List Misc Prescription (Lancet #100) Misc Prescription (lancets) amlodipine (amLODIPine 5 mg Tab) insulin glargine (Basaglar KwikPen 100 units/mL subcutaneous solution) nystatin topical (nystatin Top 100,000 units/g Pwdr) Contact prescribing physician if questions or concerns Misc Prescription (32 gauge pen needle 4 mm) Misc Prescription (Alcohol swabs, Jose F, band-aids) Misc Prescription (Glucometer) Misc Prescription (Test Strips) Misc Prescription (alcohol) aripiprazole (Abilify 5 mg Tab) atorvastatin (Lipitor 40 mg Tab) ergocalciferol (ergocalciferol 50,000 intl units Cap) escitalopram (Lexapro 10 mg Tab) folic acid (folic acid 1 mg Tab) glimepiride (glimepiride 4 mg Tab) ketoconazole topical (ketoconazole Top 2% Crm) levothyroxine (levothyroxine 88 mcg (0.088 mg) Tab) memantine (Namenda 10 mg oral tablet) ondansetron (Zofran 4 mg Tab) propranolol (propranolol 120 mg Cap-ER) ropinirole (Requip 0.25 mg Tab) semaglutide (Rybelsus 7 mg oral tablet) trazodone (traZODONE 50 mg Tab) triamcinolone topical (triamcinolone Top 0.025% Crm) Procedures Performed Tubal ligation. Discharge Vitals Temperature (Temporal Artery) 36.4 ???C Heart Rate (Peripheral) 82 Respiratory Rate 18 Blood Pressure 128/80 Height 152 cm Height 60 in Weight 85.8 kg Weight 188.76 lb BMI 37.14 What to do next Scheduled Follow-Up Appointments Thursday 9:30 AM EST With: Where: [facility] [address] [place] [id number] 2023 8:00 AM EST With: Where: [facility] [address] [place] [address]- Thursday 7:00 AM EST With: Art WEINSTEIN, Jia Littlejohn Where: [facility] [address] [place] [address]- You Need to Schedule the Following Appointments Follow Up with Lupillo MORA, APPLE PACKING HEADER-BRANDY, Loreta Wan When: Only if needed Comments: keep appt in March with jia Where: [address] [place] [phone] Medications What How Much When Why Instructions Unchanged amlodipine (amLODIPine 5 mg Tab) 1 Tablets By Mouth Every day Pickup at [facility]/pharmacy #[id number] Unchanged insulin glargine (Basaglar KwikPen 100 units/ mL subcutaneous solution) See instructions 30 units SUBQ every morning with food 20 units SUBQ every evening rotate injection sites Pickup at [facility]/pharmacy #[id number] Unchanged Misc Prescription (Lancet #100) 0 Type 2 diabetes mellitus with hyperglycemia Diagnoses diabetes. 3 month supplies Unchanged Misc Prescription (lancets) See instructions Diabetes check BID Pickup at [facility]/pharmacy #[id number] Unchanged nystatin topical (nystatin Top 100,000 units/ g Pwdr) 1 Application Topical 2 times a day Pickup at [facility]/pharmacy #[id number] Unchanged aripiprazole (Abilify 5 mg Tab) 1 Tablets By Mouth Every day Duration: 30 Days Contact prescribing physician if questions or concerns Unchanged atorvastatin (Lipitor 40 mg Tab) 1 Tablets By Mouth Every day Contact prescribing physician if questions or concerns Unchanged ergocalciferol (ergocalciferol 50,000 intl units Cap) 1 Capsules By Mouth Every week Contact prescribing physician if questions or concerns Unchanged escitalopram (Lexapro 10 mg Tab) 1 Tablets By Mouth Every day Contact prescribing physician if questions or concerns Unchanged folic acid (folic acid 1 mg Tab) 1 Tablets By Mouth Every day Contact prescribing physician if questions or concerns Unchanged glimepiride (glimepiride 4 mg Tab) 1 Tablets By Mouth Every day Contact prescribing physician if questions or concerns Unchanged ketoconazole topical (ketoconazole Top 2% Crm) 1 Application Topical Every day Contact prescribing physician if questions or concerns Unchanged levothyroxine (levothyroxine 88 mcg (0.088 mg) Tab) 1 Tablets By Mouth Every day take 1 tablet by mouth every morning ON AN EMPTY STOMACH Contact prescribing physician if questions or concerns Unchanged memantine (Namenda 10 mg oral tablet) 1 Tablets By Mouth 2 times a day Contact prescribing physician if questions or concerns Unchanged Misc Prescription (32 gauge pen needle 4 mm) See instructions Use to administer basaglar BID Contact prescribing physician if questions or concerns Unchanged Misc Prescription (Alcohol swabs, Jose F, band-aids) 0 Type 2 diabetes mellitus with hyperglycemia Duration: 30 Days Diabetic supply for a month with 2 refills Contact prescribing physician if ques (more content not included)... Normal [facility] Family Medicine Office/Clini c Noteon 02-02-2024 Family Medicine Office/Clinic Note Family Medicine Office/Clinic Note Chief Complaint needs refills Follow-up for diabetes and psychiatric medication management HPI Staff Follow up for Mental Health: Time of diagnosis: Years Psychology or FM managed: Family Medicine Counseling: No Depression: Yes Anxiety: No Sleeping pattern: 5 Mood swings: no Generally feeling happy: yes sometimes Medication adherence: yes takes medication as prescribed Side effects: None Suicidal Thoughts: None History of Present Illness The patient is a 73-year-old female presenting for a follow-up of her psychiatric conditions and wanting to update blood sugars with provider. The patient has been managing her diabetes with insulin therapy. She reports generally stable blood glucose readings both in the morning and in the evening. Recent assessments indicate that she is in need of additional diabetic supplies, specifically lancets. She also reports taking medication for anxiety and depression, namely Abilify and Lexapro, and she is scheduled for a psychiatric evaluation later in the week with her psychiatrist, Ginger, to further address her psychiatric medication management. The patient's depressive symptoms seem to be well-controlled, with no recent thoughts of self-harm noted. However, she describes spending considerable time in bed. She continues to live with her son, who has a busy work schedule, resulting in limited social interaction at home. Despite this, she indicates an ability to manage household responsibilities like laundry and doing dishes. Overall, the focus of this follow-up is ensuring continuity and adequacy in the management of her diabetes and psychiatric medications, while addressing any required lifestyle adjustments. Review of Systems PHQ Score Initial Depression Screen Score: 4 SCORE Negative unless stated in HPI Physical Exam Vitals & Measurements T: 36.4 ???C(Temporal Artery) HR: 82(Peripheral) RR: 18 BP: 128/80 SpO2: 98% HT: 60 in HT: 152 cm WT: 85.8 kg WT: 188.76 lb BMI: 37.14 Constitutional: Well-groomed, well-nourished, no signs of acute distress. HEENT: Head normocephalic, sclera is clear. Cardiothoracic: Heart rate and rhythm is regular strong, normal S1 and S2. No murmurs, rubs, or bruits auscultated. No peripheral edema, peripheral pulses +2 Respiratory: Lung sounds are clear throughout, respirations regular nonlabored. Abdomen/GI: Abdomen soft nondistended. Musculoskeletal: Gait is steady, full range of motion. Integument: No rashes or lesions noted to the exposed skin. Psychiatric: Alert and oriented x 3, pleasant, no mood changes. No thoughts of self-harm. Assessment/Plan 1. Moderate depressive disorder (F33.1: Major depressive disorder, recurrent, moderate) The patient is stable on Abilify and Lexapro, with no recent self-harm ideations. She is advised to follow up with her psychiatrist as scheduled. No change in medications will be made until the psychiatric consultation. PHQ-9 score was a 12 at this visit. Again will allow psychiatrist to take over making adjustments to her medications. 2. Anxiety (F41.1: Generalized anxiety disorder) Continuation of current medication regimen and additional psychiatric evaluation to be undertaken at her scheduled psychiatric appointment. ANDREE score at this visit was an 1. 3. Type 2 diabetes mellitus with hyperglycemia (E11.65: Type 2 diabetes mellitus with hyperglycemia) The importance of the following were all reviewed with the patient: -Take medications as prescribed. -Exercise and diet as discussed. -Monitoring blood sugar and HgBA1c regularly. -Monitoring urine microalbumin regularly to check for kidney damage. -Annual eye exams to prevent blindness. -Proper foot care and regularly checking feet to prevent sores and possibly loss of limbs. The patient will continue on her current insulin regimen with close monitoring of blood glucose. Prescriptions for diabetic supplies, including lancets, have been refilled. Emphasis on maintaining consistent monitoring of her blood glucose levels was discussed. 4. Class 1 obesity due to excess calories in adult (E66.09: Other obesity due to excess calories) Calorie restriction along with routine aerobic exercises discussed in order to avoid hypertension, osteoarthritis, metabolic syndrome and/or worsening of chronic underlying disease states. Encouraged to limit sugary drinks, foods high in sodium, as well as alcohol. 5. BMI 37.0-37.9, adult (Z68.37: Body mass index [BMI] 37.0-37.9, adult) See #4 Orders: amlodipine, 5 mg = 1 tab(s), Oral, Daily, # 90 tab(s), Refills(s) 1, Pharmacy: [facility]/pharmacy #[id number], 152, cm, 02/02/24 9:32:00 EDT, Height/Length Dosing, 85.8, kg, 02/02/24 9:42:00 EDT, Weight Dosing insulin glargine, See Instructions, 30 units SUBQ every morning with food 20 units SUBQ every evening rotate injection sites, # 15 mL, Refills(s) 5, Pharmacy: [facility]/pharmacy #[id number], 152, cm, 02/02/24 9:32:00 EDT, Height/Length Dosing, 85.8, kg, 02/02/24 (more content not included)... Normal [facility] Comment on above: Result Comment: Elec tronically Signed By: Lupillo MSN, APPLE PACKING HEADER- ACTIVITY THERAPIST, Loreta Wan\.br\Date and Time Signed: 02/02/24 10:05 EDT Population Health 01-28-20 Population [facility] Case Information Case Priority: None Programs: -- Referral Source: Medical Stenographer Referral Reason: Care coordination Case Type: Transition Care Management Risk Score: -- Case Status: Enrolled (January 04, 2024) Date Assigned: January 01, 2024 Assigned By: Rachel Neal R.N. Date Enrolled: January 04, 2024 Assigned Primary Personnel: Rachel Neal R.N. Assigned Secondary Personnel: -- Case Physician: Jia Woodward Problems Ongoing Anxiety BMI 31.0-31.9,adult Class 1 obesity due to excess calories in adult Effusion of bursa of left knee Former smoker Hypercholesterolemia Hypothyroid Long-term insulin use Moderate depressive disorder SHILOH (obstructive sleep apnea) Polyuria Primary hypertension Stage 3a chronic kidney disease (CKD) Suicidal ideation Thumb tendonitis Type 2 diabetes mellitus with hypercholesterolemia Type 2 diabetes mellitus with hyperglycemia Type 2 diabetes mellitus with stage 3a chronic kidney disease Urgency incontinence Historical Diabetes Smoker Procedure/Surgical History Tubal ligation. Home Medications 32 gauge pen needle 4 mm, See Instructions, 3 refills Abilify 5 mg Tab, 5 mg= 1 tab(s), Oral, Daily alcohol, See Instructions, 3 refills Alcohol swabs, Jose F, band-aids, 0, 2 refills amLODIPine 5 mg Tab, 5 mg= 1 tab(s), Oral, Daily, 1 refills Basaglar KwikPen 100 units/mL subcutaneous solution, See Instructions, 5 refills ergocalciferol 50,000 intl units Cap, 92150 International_Unit= 1 cap(s), Oral, qWeek folic acid 1 mg Tab, 1 mg= 1 tab(s), Oral, Daily, 1 refills glimepiride 4 mg Tab, 4 mg= 1 tab(s), Oral, Daily, 3 refills Glucometer, 0 ketoconazole Top 2% Crm, 1 boyd, Topical, Daily Lancet #100, 0 lancets, See Instructions, 3 refills levothyroxine 88 mcg (0.088 mg) Tab, 88 mcg= 1 tab(s), Oral, Daily, 1 refills Lexapro 10 mg Tab, 10 mg= 1 tab(s), Oral, Daily Lipitor 40 mg Tab, 40 mg= 1 tab(s), Oral, Daily, 1 refills Namenda 10 mg oral tablet, 10 mg= 1 tab(s), Oral, BID nystatin Top 100,000 units/g Pwdr, 1 boyd, Topical, BID, 3 refills propranolol 120 mg Cap-ER, See Instructions Requip 0.25 mg Tab, 0.25 mg= 1 tab(s), Oral, Daily, 1 refills Rybelsus 7 mg oral tablet, 7 mg= 1 tab(s), Oral, Daily, 3 refills Test Strips, See Instructions, 5 refills traZODONE 50 mg Tab, See Instructions triamcinolone Top 0.025% Crm, See Instructions Zofran 4 mg Tab, 4 mg= 1 tab(s), Oral, q8hr, PRN Allergies amoxicillin (Anaphylaxis) Social History Alcohol - Denies Alcohol Use, 06/09/2014 Current, 03/24/2023 Substance Abuse - Denies Substance Abuse, 06/09/2014 Current, 03/24/2023 Tobacco - Denies Tobacco Use, 06/09/2014 Never (less than 100 in lifetime) Tobacco Use:. Never Smokeless Tobacco Use:., 01/12/2024 Family History Acute myocardial infarction: Brother. Diabetes mellitus type 1: Father. Screenings and Assessments 01/04/24 13:32:00 Result Name Value Comment Phone Call Monitoring Consent Agreed to continue call Phone Verification Patient Information Full name, street address and date of verified CM Program Enrollment Provides verbal consent for enrollment Goals and Interventions Care Plan Progress Note 1216 2 min final Patient states doing ok. States depression is getting better. States has no called followed up on psych referral. Encouraged patient to do this,agreed to follow up.Denies SI/HI or visual/auditory/tacti le hallucinations. Stated going to PT for hand. Denies anxiety. Continuesto endorse difficulty sleeping despite taking Trazodone. Denies CP, SOB, trouble eating, drinking, swallowing, or with bowels/bladder. Denies concerns. Communication Events Date: January 28, 2024 Method: Phone call Type: Outbound Duration (min): 2 Outcome: Case discussion Contact Type: Patient Contact Name: SABINA CANELA Notes: tcm #5 final see ft summary note Created By: Rachel Neal R.N. Date: January 20, 2024 Method: Phone call Type: Outbound Duration (min): 3 Outcome: Case discussion Contact Type: Patient Contact Name: SABINA CANELA Notes: tcm #2 see ft summary note Created By: Rachel Neal R.N. Date: January 19, 2024 Method: Phone call Type: Outbound Duration (min): 5 Outcome: Case discussion Contact Type: Patient Contact Name: SABINA CANELA Notes: tcm #3 see ft summary note Created By: Rachel Neal R.N. Date: January 04, 2024 Method: Phone call Type: Outbound Duration (min): 19 Outcome: Case discussion Contact Type: Patient Contact Name: SABINA CANELA Notes: tcm #2 see ft summary note Created By: Rachel Neal R.N. Date: January 01, 2024 Method: Phone call Type: Outbound Duration (min): 1 Outcome: Left message-voicemail Contact Type: trauma coordinator Contact Name: Rachel Neal R.N. Notes: tcm #1 LVM asking for return call Created By: Rachel Neal R.N. Date: Dec (more content not included)... [facility] 01-20-20 [facility] Case Information Case Priority: None Programs: -- Referral Source: Medical Stenographer Referral Reason: Care coordination Case Type: Transition Care Management Risk Score: -- Case Status: Enrolled (January 04, 2024) Date Assigned: January 01, 2024 Assigned By: Rachel Neal R.N. Date Enrolled: January 04, 2024 Assigned Primary Personnel: Rachel Neal R.N. Assigned Secondary Personnel: -- Case Physician: Jia Woodward Problems Ongoing Anxiety BMI 31.0-31.9,adult Class 1 obesity due to excess calories in adult Effusion of bursa of left knee Former smoker Hypercholesterolemia Hypothyroid Long-term insulin use Moderate depressive disorder SHILOH (obstructive sleep apnea) Polyuria Primary hypertension Stage 3a chronic kidney disease (CKD) Suicidal ideation Thumb tendonitis Type 2 diabetes mellitus with hypercholesterolemia Type 2 diabetes mellitus with hyperglycemia Type 2 diabetes mellitus with stage 3a chronic kidney disease Urgency incontinence Historical Diabetes Smoker Procedure/Surgical History Tubal ligation. Home Medications 32 gauge pen needle 4 mm, See Instructions, 3 refills Abilify 5 mg Tab, 5 mg= 1 tab(s), Oral, Daily alcohol, See Instructions, 3 refills Alcohol swabs, Kinde, band-aids, 0, 2 refills amLODIPine 5 mg Tab, 5 mg= 1 tab(s), Oral, Daily, 1 refills Basaglar KwikPen 100 units/mL subcutaneous solution, See Instructions, 5 refills ergocalciferol 50,000 intl units Cap, 10281 International_Unit= 1 cap(s), Oral, qWeek folic acid 1 mg Tab, 1 mg= 1 tab(s), Oral, Daily, 1 refills glimepiride 4 mg Tab, 4 mg= 1 tab(s), Oral, Daily, 3 refills Glucometer, 0 ketoconazole Top 2% Crm, 1 boyd, Topical, Daily Lancet #100, 0 lancets, See Instructions, 3 refills levothyroxine 88 mcg (0.088 mg) Tab, 88 mcg= 1 tab(s), Oral, Daily, 1 refills Lexapro 10 mg Tab, 10 mg= 1 tab(s), Oral, Daily Lipitor 40 mg Tab, 40 mg= 1 tab(s), Oral, Daily, 1 refills Namenda 10 mg oral tablet, 10 mg= 1 tab(s), Oral, BID nystatin Top 100,000 units/g Pwdr, 1 boyd, Topical, BID, 3 refills propranolol 120 mg Cap-ER, See Instructions Requip 0.25 mg Tab, 0.25 mg= 1 tab(s), Oral, Daily, 1 refills Rybelsus 7 mg oral tablet, 7 mg= 1 tab(s), Oral, Daily, 3 refills Test Strips, See Instructions, 5 refills traZODONE 50 mg Tab, See Instructions triamcinolone Top 0.025% Crm, See Instructions Zofran 4 mg Tab, 4 mg= 1 tab(s), Oral, q8hr, PRN Allergies amoxicillin (Anaphylaxis) Social History Alcohol - Denies Alcohol Use, 06/09/2014 Current, 03/24/2023 Substance Abuse - Denies Substance Abuse, 06/09/2014 Current, 03/24/2023 Tobacco - Denies Tobacco Use, 06/09/2014 Never (less than 100 in lifetime) Tobacco Use:. Never Smokeless Tobacco Use:., 01/12/2024 Family History Acute myocardial infarction: Brother. Diabetes mellitus type 1: Father. Screenings and Assessments 01/04/24 13:32:00 Result Name Value Comment Phone Call Monitoring Consent Agreed to continue call Phone Verification Patient Information Full name, street address and date of verified CM Program Enrollment Provides verbal consent for enrollment Goals and Interventions Care Plan Progress Note [facility] [place] #2 [id number] 3 min Notified patient referral has been sent to [facility] and number given. Notified per PCP to increase the Abilify dose from 2 mg to 5 mg (2.5 tablets). Also that this could take a couple weeks before she can feel any difference. Patient acknowledged understanding. Communication Events Date: January 20, 2024 Method: Phone call Type: Outbound Duration (min): 3 Outcome: Case discussion Contact Type: Patient Contact Name: SABINA CANELA Notes: tcm #2 see ft summary note Created By: Rachel Neal R.N. Date: January 19, 2024 Method: Phone call Type: Outbound Duration (min): 5 Outcome: Case discussion Contact Type: Patient Contact Name: SABINA CANELA Notes: tcm #3 see ft summary note Created By: Rachel Neal R.N. Date: January 04, 2024 Method: Phone call Type: Outbound Duration (min): 19 Outcome: Case discussion Contact Type: Patient Contact Name: SABINA CANELA Notes: tcm #2 see ft summary note Created By: Rachel Neal R.N. Date: January 01, 2024 Method: Phone call Type: Outbound Duration (min): 1 Outcome: Left message-voicemail Contact Type: trauma coordinator Contact Name: Rachel Neal R.N. Notes: tcm #1 LVM asking for return call Created By: Rachel Neal R.N. Date: January 01, 2024 Method: Phone call Type: Outbound Duration (min): 1 Outcome: Left message-voicemail Contact Type: trauma coordinator Contact Name: Rachel Neal R.N. Notes: tcm #1 LVM asking for return call Created By: Rachel Neal R.N. this is actually tcm #4 [facility] 01-19-20 [facility] Case Information Case Priority: None Programs: -- Referral Source: Medical Stenographer Referral Reason: Care coordination Case Type: Transition Care Management Risk Score: -- Case Status: Enrolled (January 04, 2024) Date Assigned: January 01, 2024 Assigned By: Rachel Neal R.N. Date Enrolled: January 04, 2024 Assigned Primary Personnel: Rachel Neal R.N. Assigned Secondary Personnel: -- Case Physician: Jia Woodward Problems Ongoing Anxiety BMI 31.0-31.9,adult Class 1 obesity due to excess calories in adult Effusion of bursa of left knee Former smoker Hypercholesterolemia Hypothyroid Long-term insulin use Moderate depressive disorder SHILOH (obstructive sleep apnea) Polyuria Primary hypertension Stage 3a chronic kidney disease (CKD) Suicidal ideation Thumb tendonitis Type 2 diabetes mellitus with hypercholesterolemia Type 2 diabetes mellitus with hyperglycemia Type 2 diabetes mellitus with stage 3a chronic kidney disease Urgency incontinence Historical Diabetes Smoker Procedure/Surgical History Tubal ligation. Home Medications 32 gauge pen needle 4 mm, See Instructions, 3 refills Abilify 2 mg Tab, 2 mg= 1 tab(s), Oral, Daily alcohol, See Instructions, 3 refills Alcohol swabs, Kinde, band-aids, 0, 2 refills amLODIPine 5 mg Tab, 5 mg= 1 tab(s), Oral, Daily, 1 refills Basaglar KwikPen 100 units/mL subcutaneous solution, See Instructions, 5 refills ergocalciferol 50,000 intl units Cap, 15323 International_Unit= 1 cap(s), Oral, qWeek folic acid 1 mg Tab, 1 mg= 1 tab(s), Oral, Daily, 1 refills glimepiride 4 mg Tab, 4 mg= 1 tab(s), Oral, Daily, 3 refills Glucometer, 0 ketoconazole Top 2% Crm, 1 boyd, Topical, Daily Lancet #100, 0 lancets, See Instructions, 3 refills levothyroxine 88 mcg (0.088 mg) Tab, 88 mcg= 1 tab(s), Oral, Daily, 1 refills Lexapro 10 mg Tab, 10 mg= 1 tab(s), Oral, Daily Lipitor 40 mg Tab, 40 mg= 1 tab(s), Oral, Daily, 1 refills Namenda 10 mg oral tablet, 10 mg= 1 tab(s), Oral, BID nystatin Top 100,000 units/g Pwdr, 1 boyd, Topical, BID, 3 refills propranolol 120 mg Cap-ER, See Instructions Requip 0.25 mg Tab, 0.25 mg= 1 tab(s), Oral, Daily, 1 refills Rybelsus 7 mg oral tablet, 7 mg= 1 tab(s), Oral, Daily, 3 refills Test Strips, See Instructions, 5 refills traZODONE 50 mg Tab, See Instructions triamcinolone Top 0.025% Crm, See Instructions Zofran 4 mg Tab, 4 mg= 1 tab(s), Oral, q8hr, PRN Allergies amoxicillin (Anaphylaxis) Social History Alcohol - Denies Alcohol Use, 06/09/2014 Current, 03/24/2023 Substance Abuse - Denies Substance Abuse, 06/09/2014 Current, 03/24/2023 Tobacco - Denies Tobacco Use, 06/09/2014 Never (less than 100 in lifetime) Tobacco Use:. Never Smokeless Tobacco Use:., 01/12/2024 Family History Acute myocardial infarction: Brother. Diabetes mellitus type 1: Father. Screenings and Assessments 01/04/24 13:32:00 Result Name Value Comment Phone Call Monitoring Consent Agreed to continue call Phone Verification Patient Information Full name, street address and date of verified CM Program Enrollment Provides verbal consent for enrollment Goals and Interventions Care Plan Progress Note tcm #3 [id number] 5 min Spoke to patient who was tearful today. At first told me was fine although I could hear her crying. But as conversation went on admitted that she was upset. Stated my stupid sister is causing problems. Shes doing things that she knows upset me. Patient also states he brother is just pretending like he doesn't understand the language I'm speaking. States wants to change her number and not give it to them. Denies SI/HI or visual/auditory/tacti le hallucinations. Indicates wants an increase in anxiety medication. States waiting for Paula to give her a referral for psychiatry referral. Apparently she works or her insurance company. Educated patient that this referral has to come from a physician not her insurance company. CN notified PCP of both medication and referral request. Denies other concerns. Encouraged to seek medical attention if becomes suicidal. Patient acknowledges understanding. Communication Events Date: January 19, 2024 Method: Phone call Type: Outbound Duration (min): 5 Outcome: Case discussion Contact Type: Patient Contact Name: SABINA CANELA Notes: tcm #3 see ft summary note Created By: Rachel Neal R.N. Date: January 04, 2024 Method: Phone call Type: Outbound Duration (min): 19 Outcome: Case discussion Contact Type: Patient Contact Name: SABINA CANELA Notes: tcm #2 see ft summary note Created By: Rachel Neal R.N. Date: January 01, 2024 Method: Phone call Type: Outbound Duration (min): 1 Outcome: Left message-voicemail Contact Type: trauma coordinator Contact Name: Rachel Neal R.N. Notes: tcm #1 LVM asking for return call Created By: Ángel Miner, (more content not included)... [facility] Family Medicine Office/Clini c Noteon 01-12-2024 Family Medicine Office/Clinic Note Family Medicine Office/Clinic Note Chief Complaint The patient presents for follow-up on her anxiety and depressive symptoms. HPI Staff [facility] Hospital: [facility] [place] Visit date: 01-01-24 Symptoms the patient presented with: Depression Therapy ordered: none Current concerns: none History of Present Illness The patient is a 73-year-old female presenting with concerns related to her generalized anxiety disorder and moderate recurrent major depressive disorder. Her anxiety and depression have been longstanding issues, with recent exacerbations that led to a temporary stay at [facility] for additional support. The patient reports a significant improvement in her mood since the intervention. She states she no longer experiences suicidal ideations or thoughts of self-harm, which had previously been concerning. The patient mentions that her mood has stabilized, and her social interactions have improved; she attended a family reunion and engaged in activities with her family. She is currently taking Abilify and Lexapro, with recent medication adjustments proving beneficial. The patient is following up to discuss medication regime adjustments and inquire about any further necessary interventions. Her current medication regimen includes 5 mg of Lexapro, with plans to increase to 10 mg, which has helped in managing her symptoms. Her past depressive episodes were characterized by frequent crying and feelings of loneliness, but the patient now reports these symptoms have subsided significantly. Review of Systems PHQ Score Initial Depression Screen Score: 1 SCORE Negative as stated in HPI. Physical Exam Vitals & Measurements T: 36.5 ?C(Temporal Artery) HR: 72(Peripheral) RR: 18 BP: 138/84 SpO2: 96% HT: 60 in HT: 152 cm WT: 85.5 kg WT: 188.1 lb BMI: 37.01 Constitutional: Well-groomed, well-nourished, no signs of acute distress. Weight is 188 pounds. HEENT: Head normocephalic, sclera is clear. Cardiothoracic: Heart rate and rhythm is regular strong, normal S1 and S2. No murmurs, rubs, or bruits auscultated. No peripheral edema, peripheral pulses +2 Respiratory: Lung sounds are clear throughout, respirations regular nonlabored. Abdomen/GI: Abdomen soft nondistended. Musculoskeletal: Gait is steady, full range of motion. Integument: No rashes or lesions noted to the exposed skin. Psychiatric: Alert and oriented x 3, pleasant, no mood changes. Assessment/Plan 1. Moderate depressive disorder (F33.1: Major depressive disorder, recurrent, moderate) The patient is to continue the current antidepressant regimen, with an increase in Lexapro from 5 mg to 10 mg to address and further manage depressive symptoms. Continued monitoring and evaluation recommended to ensure stability is maintained. Patient's safety posed no current alarming issues due to the stabilization of recurring depressive episodes. 2. Anxiety (F41.1: Generalized anxiety disorder) The patient will continue on Abilify with the current dose maintained, and Lexapro is to be increased to 10 mg as per recent adjustments, which have been well-tolerated and effective. Continues print refills for 90 days with follow-up planned. Consideration of psychiatric follow-up was mentioned but deemed unnecessary at this time given her symptom improvement. 3. Suicidal ideation (R45.851: Suicidal ideations) Not actively present at this visit but closely monitored due to the patient's past history. The patient shows no current ideation or active thoughts of harm and reports feeling considerably better since the intervention at [facility], alongside stabilizing medication adjustments. 4. Class 1 obesity due to excess calories in adult (E66.09: Other obesity due to excess calories) Calorie restriction along with routine aerobic exercises discussed in order to avoid hypertension, osteoarthritis, metabolic syndrome and/or worsening of chronic underlying disease states. Encouraged to limit sugary drinks, foods high in sodium, as well as alcohol. Education provided on weight management strategies, including dietary modifications and increased physical activity. Explore options like simple exercises to enhance energy expenditure. Regular follow-ups advised to evaluate progress and adherence to lifestyle modifications. 5. BMI 31.0-31.9,adult (Z68.31: Body mass index [BMI] 31.0-31.9, adult) See #4 6. Immunization due (Z23: Encounter for immunization) Ordered: influenza virus vaccine, inactivated, 0.5 mL, Susp-Inj, IntraMuscular, Once, Stop date 01/12/24 16:00:00 EDT, Routine, Start date 01/12/24 16:00:00 EDT Admin flu virus vaccine [id number] Orders: aripiprazole, 2 mg = 1 tab(s), Oral, Daily, X 90 day(s), # 90 tab(s), Refills(s) 0, Pharmacy: [facility]/pharmacy #[id number], 152, cm, 01/12/24 14:19:00 EDT, Height/Length Dosing, 85.5, kg, 01/12/24 14:19:00 EDT, Weight Dosing escitalopram, 10 mg = 1 tab(s), Oral, Daily, # 90 tab(s), Refills(s) 0, Pharmacy: [facility]/pharmacy #[id number], 152, cm, 01/12/24 14:19:00 EDT, Height/Length Dos (more content not included)... [facility] Comment on above: Result Comment: Elec tronically Signed By: Lupillo MSN, APPLE PACKING HEADER- ACTIVITY THERAPIST, Loreta Wan\.br\Date and Time Signed: 01/12/24 17:58 EDT [facility] 01-04-20 [facility] Case Information Case Priority: None Programs: -- Referral Source: Medical Stenographer Referral Reason: Care coordination Case Type: Transition Care Management Risk Score: -- Case Status: Enrolled (January 04, 2024) Date Assigned: January 01, 2024 Assigned By: Rachel Neal R.N. Date Enrolled: January 04, 2024 Assigned Primary Personnel: Rachel Neal R.N. Assigned Secondary Personnel: -- Case Physician: Jia Woodward Problems Ongoing Anxiety BMI 31.0-31.9,adult Class 1 obesity due to excess calories in adult Effusion of bursa of left knee Former smoker Hypercholesterolemia Hypothyroid Long-term insulin use Moderate depressive disorder SHILOH (obstructive sleep apnea) Polyuria Primary hypertension Stage 3a chronic kidney disease (CKD) Suicidal ideation Thumb tendonitis Type 2 diabetes mellitus with hypercholesterolemia Type 2 diabetes mellitus with hyperglycemia Type 2 diabetes mellitus with stage 3a chronic kidney disease Urgency incontinence Historical Diabetes Smoker Procedure/Surgical History Tubal ligation. Home Medications 32 gauge pen needle 4 mm, See Instructions, 3 refills Abilify 2 mg Tab, 2 mg= 1 tab(s), Oral, Daily alcohol, See Instructions, 3 refills Alcohol swabs, Kinde, band-aids, 0, 2 refills amLODIPine 5 mg Tab, 5 mg= 1 tab(s), Oral, Daily, 1 refills Basaglar KwikPen 100 units/mL subcutaneous solution, See Instructions, 5 refills CeleBREX 100 mg Cap, 100 mg= 1 cap(s), Oral, Daily, Not taking ergocalciferol 50,000 intl units Cap, 86071 International_Unit= 1 cap(s), Oral, qWeek folic acid 1 mg Tab, 1 mg= 1 tab(s), Oral, Daily, 1 refills glimepiride 4 mg Tab, 4 mg= 1 tab(s), Oral, Daily, 3 refills Glucometer, 0 ketoconazole Top 2% Crm, 1 boyd, Topical, Daily Lancet #100, 0 lancets, See Instructions, 3 refills levothyroxine 88 mcg (0.088 mg) Tab, 88 mcg= 1 tab(s), Oral, Daily, 1 refills Lexapro 5 mg oral tablet, 5 mg= 1 tab(s), Oral, Daily, Not taking Lexapro 5 mg oral tablet, 5 mg= 1 tab(s), Oral, Daily Lipitor 40 mg Tab, 40 mg= 1 tab(s), Oral, Daily, 1 refills lisinopril 2.5 mg Tab, 2.5 mg= 1 tab(s), Oral, Daily, 1 refills, Not taking magnesium citrate, Not taking Myrbetriq 50 mg oral tablet, extended release, 50 mg= 1 tab(s), Oral, Daily, 1 refills Namenda 10 mg oral tablet, 10 mg= 1 tab(s), Oral, BID nystatin Top 100,000 units/g Pwdr, 1 boyd, Topical, BID, 3 refills propranolol 120 mg Cap-ER, See Instructions Requip 0.25 mg Tab, 0.25 mg= 1 tab(s), Oral, Daily, 1 refills Rybelsus 7 mg oral tablet, 7 mg= 1 tab(s), Oral, Daily, 3 refills Test Strips, See Instructions, 5 refills traZODONE 50 mg Tab, See Instructions triamcinolone Top 0.025% Crm, See Instructions Zofran 4 mg Tab, 4 mg= 1 tab(s), Oral, q8hr, PRN Allergies amoxicillin (Anaphylaxis) Social History Alcohol - Denies Alcohol Use, 06/09/2014 Current, 03/24/2023 Substance Abuse - Denies Substance Abuse, 06/09/2014 Current, 03/24/2023 Tobacco - Denies Tobacco Use, 06/09/2014 Never (less than 100 in lifetime) Tobacco Use:. Never Smokeless Tobacco Use:., 12/29/2023 Family History Acute myocardial infarction: Brother. Diabetes mellitus type 1: Father. Screenings and Assessments 01/04/24 13:32:00 Result Name Value Comment Phone Call Monitoring Consent Agreed to continue call Phone Verification Patient Information Full name, street address and date of verified CM Program Enrollment Provides verbal consent for enrollment Goals and Interventions Care Plan Progress Note Admit Date: 12/29/2023 Date of Discharge: 01/01/2024 Follow-up appointment scheduled? 01/12/2024 @ [facility] [place] Did you understand your discharge instructions? yes Are you able to follow them? yes Did you receive new medications? Lexapro 5 mg daily x 5days and Abilify 2 mg daily x 15 days Have you filled the Rx's? yes Are you taking them as prescribed? yes Are you having difficulty eating or swallowing your pills? no Are you having any stomach upset, diarrhea or constipation? no How are you sleeping? ok Are you having any pain? no Do you have everything you need at home to care for yourself? yes Do you have Home Health?no Called patient for Transitional Care Management following hospitalization for MDD w/ severe psychotic sx . Patient is risk for readmission unavailable. Reviewed discharge instructions and medications reconciled with patient, discharge list and EHR. Reviewed purpose and side effects of new medications.Patient stastes doing ok Denies SI/HI, visual, auditory, or tactile hallucinations.States I'm feeling much better than I was. Endorses effectiveness of new medication. States that her friend asking her what is wrong with you is what triggered this episode. Denies CP, SOB, trouble eating, drinking, sleeping, swallowing, or with bowels/bladder. Denies concerns. (more content not included)... [facility] Sleep Office/Clinic Noteon 0 01-04-2024 Sleep Office/Clinic Note Sleep Office/Clinic Note History of Present Illness Here to establish care for obstructive sleep apnea. The patient reports that she was completely off disrupted sleep, fatigue and daytime sleepiness and has was referred for sleep study. She reports her weight has been relatively stable and was told that she snores at night and occasionally stops breathing. She underwent a sleep study followed by CPAP titration and is here to discuss results and guide further management. Review of Systems Constitutional: no fever, no chills, no sweats, no weakness Skin: no Jaundice, no rash, no lesions, no petechiae ENT: no ear pain, no sore throat, no congestion, no hoarseness Respiratory: Denies shortness of breath, cough or wheezing Cardiovascular: no chest pain, no palpitations, no edema Gastrointestinal: no nausea, no vomiting, no diarrhea, no GI bleeding Genitourinary: no dysuria, no hematuria, no discharge, no pain Musculoskeletal: no back pain, no trauma Neurologic: no headache, no dizziness, no numbness, no weakness Psychiatric: no irritability, no mood swings/depression. Heme/Lymph: no bleeding tendency, no bruising tendency, no petechiae, no swollen nodes Allergy/Immunologic: no seasonal allergies, no food allergies, no recurrent infections, no impaired immunity Additional ROS info: Except as noted in the above Review of Systems and in the History of Present Illness all other systems have been reviewed and are negative or noncontributory. Physical Exam General: Awake, alert, in no acute distress Skin: warm, dry Head: no trauma, normocephalic. Prolonged soft palate Neck: Trachea midline, no adenopathy, no tenderness Eye: normal conjunctiva, sclera clear ENMT: TM's clear, oral mucosa moist, no pharyngeal erythema or exudate Cardiovascular: regular rate and rhythm, normal peripheral perfusion Respiratory: Good breath sounds to both lung [place] without wheezing or crackles. Gastrointestinal: soft, non distended, no tenderness, no guarding. Back: No tenderness, Normal ROM, Normal alignment. Extremities: no deformity, no trauma Neurological: oriented x 4, LOC appropriate for age, CN II-XII intact, motor strength equal & normal bilaterally, sensation equal & normal bilaterally, speech normal Psychiatric: cooperative, affect appropriate for age, normal judgement, normal psychiatric thoughts. Assessment/Plan 1. SHILOH (obstructive sleep apnea) (G47.33: Obstructive sleep apnea (adult) (pediatric)) The patient's sleep study was reviewed and results were discussed with the patient in details. Evidence of mild underlying obstructive sleep apnea with an apnea hypotony index of 7.2/hour with mild oxygen desaturation noted. The etiology of obstructive sleep apnea and methods of treatment were discussed with the patient in details. She is agreeable to treatment. I will arrange for a CPAP machine with a pressure of 6 cm via mask of her choice with heated humidity and see her back after 6 to 8 weeks with a download from her machine to reevaluate her treatment plan. She will call me back in the meantime if any issues. Follow-up With When Contact Information Kristian CESAR, Lottie Pak, PUL, VANITA Within 6 weeks [address] [facility] [place] [address]- Additional Instructions: Problem List/Past Medical History Ongoing Anxiety BMI 31.0-31.9,adult Class 1 obesity due to excess calories in adult Effusion of bursa of left knee Former smoker Hypercholesterolemia Hypothyroid Long-term insulin use Moderate depressive disorder SHILOH (obstructive sleep apnea) Polyuria Primary hypertension Stage 3a chronic kidney disease (CKD) Suicidal ideation Thumb tendonitis Type 2 diabetes mellitus with hypercholesterolemia Type 2 diabetes mellitus with hyperglycemia Type 2 diabetes mellitus with stage 3a chronic kidney disease Urgency incontinence Historical Diabetes Smoker Procedure/Surgical History Tubal ligation. Medications 32 gauge pen needle 4 mm, See Instructions, 3 refills alcohol, See Instructions, 3 refills Alcohol swabs, Jose F, band-aids, 0, 2 refills amLODIPine 5 mg Tab, 5 mg= 1 tab(s), Oral, Daily, 1 refills Basaglar KwikPen 100 units/mL subcutaneous solution, See Instructions, 5 refills CeleBREX 100 mg Cap, 100 mg= 1 cap(s), Oral, Daily ergocalciferol 50,000 intl units Cap, 66183 International_Unit= 1 cap(s), Oral, qWeek folic acid 1 mg Tab, 1 mg= 1 tab(s), Oral, Daily, 1 refills glimepiride 4 mg Tab, 4 mg= 1 tab(s), Oral, Daily, 3 refills Glucometer, 0 ketoconazole Top 2% Crm, 1 boyd, Topical, Daily Lancet #100, 0 lancets, See Instructions, 3 refills levothyroxine 88 mcg (0.088 mg) Tab, 88 mcg= 1 tab(s), Oral, Daily, 1 refills Lipitor 40 mg Tab, 40 mg= 1 tab(s), Oral, Daily, 1 refills lisinopril 2.5 mg Tab, 2.5 mg= 1 tab(s), Oral, Daily, 1 refills magnesium citrate Myrbetriq 50 mg oral tablet, extended release, 50 mg= 1 tab(s), Oral, Daily, 1 refil (more content not included)... Normal [facility] Comment on above: Result Comment: Elec tronically Signed By: Kristian CESAR, Lottie GMary Kate\.br\Date and Time Signed: 01/04/24 10:46 EDT Capillary blood glucose champ urement by glucometer (mass/volume)Ordered By: Mckinley Palomares on 01-01-2024 Glucose [Mass/Vol] 64 mg/dL Normal [facility] Comment on above: Random Glucose Refer ence Range is dependent on time and content of last meal. Glucose of more than 200 mg/dL in a nonstressed, ambulatory subject supports the diagnosis of Diabetes Mellitus. Result Comment: Maxwell Glucose Reference Range is dependent on time and content of last meal. Glucose of more than 200 mg/dL in a nonstressed, ambulatory subject supports the diagnosis of Diabetes Mellitus. PERFORMED BY: [facility] [address] [place] [address] PATHOLOGIST BINDERY LIBRARY TECHNICAL ASSISTANT ARIEL DILL M.D. Performed By: #### G STEFANI #### Point of Care testing , Glucose Glucometer (BldC) [M ass/Vol]Ordered By: Mckinley Palomares on 01-01-2024 Glucose [Mass/Vol] Capillary blood glucose measurement by glucometer (mass/volume) [facility] Comment on above: Random Glucose Refer ence Range is dependent on time and content of last meal. Glucose of more than 200 mg/dL in a nonstressed, ambulatory subject supports the diagnosis of Diabetes Mellitus. Glucose Poct Glucometerson 0 12-31-2023 Glucose [Mass/Vol] 159 mg/dL Normal [facility] Comment on above: Result Comment: Maxwell om Glucose Reference Range is dependent on time and content of last meal. Glucose of more than 200 mg/dL in a nonstressed, ambulatory subject supports the diagnosis of Diabetes Mellitus. PERFORMED BY: [address] [place] [address] PATHOLOGIST BINDERY LIBRARY TECHNICAL ASSISTANT ARIEL DILL M.D. Performed By: #### G LULS #### Point of Care testing , Glucose [Mass/Vol] 203 mg/dL Normal [facility] Comment on above: Result Comment: Maxwell om Glucose Reference Range is dependent on time and content of last meal. Glucose of more than 200 mg/dL in a nonstressed, ambulatory subject supports the diagnosis of Diabetes Mellitus. PERFORMED BY: [address] [place] [address] PATHOLOGIST BINDERY LIBRARY TECHNICAL ASSISTANT ARIEL DILL M.D. Performed By: #### G LULS #### Point of Care testing , Glucose [Mass/Vol] 236 mg/dL Normal [facility] Comment on above: Result Comment: Maxwell om Glucose Reference Range is dependent on time and content of last meal. Glucose of more than 200 mg/dL in a nonstressed, ambulatory subject supports the diagnosis of Diabetes Mellitus. PERFORMED BY: [address] [address] PATHOLOGIST BINDERY LIBRARY TECHNICAL ASSISTANT ARIEL DILL M.D. Performed By: #### G LULS #### Point of Care testing , Glucose [Mass/Vol] 130 mg/dL Normal [facility] Comment on above: Result Comment: Maxwell om Glucose Reference Range is dependent on time and content of last meal. Glucose of more than 200 mg/dL in a nonstressed, ambulatory subject supports the diagnosis of Diabetes Mellitus. PERFORMED BY: [address] [address] PATHOLOGIST BINDERY LIBRARY TECHNICAL ASSISTANT ARIEL DILL M.D. Performed By: #### G LULS #### Point of Care testing , Glucose [Mass/Vol] 132 mg/dL Normal [facility] Comment on above: Result Comment: Maxwell om Glucose Reference Range is dependent on time and content of last meal. Glucose of more than 200 mg/dL in a nonstressed, ambulatory subject supports the diagnosis of Diabetes Mellitus. PERFORMED BY: [facility] [address] [place] [address] PATHOLOGIST BINDERY LIBRARY TECHNICAL ASSISTANT ARIEL DILL M.D. Performed By: #### G LULS #### Point of Care testing , Commemt1 Glu2: Cleaned Meter Normal [facility] Comment on above: Result Comment: PERF ORMED BY: [facility] [address] [place] [address] PATHOLOGIST BINDERY LIBRARY TECHNICAL ASSISTANT ARIEL DILL M.D. Performed By: #### G LULS #### Point of Care testing , Glucose [Mass/Vol] 71 mg/dL Normal [facility] Comment on above: Result Comment: Maxwell Glucose Reference Range is dependent on time and content of last meal. Glucose of more than 200 mg/dL in a nonstressed, ambulatory subject supports the diagnosis of Diabetes Mellitus. Performed By: #### G LULS #### Point of Care testing , No Panel InformationOrdered By: Mckinley Palomares on 12-31-2023 Bedside Glucose Comment Glu2: cleaned meter [facility] Cholesterol [Mass/volume] in Serum or PlasmaOrdered By: Mckinley Palomares on 12-30-2023 Cholesterol [Mass/Vol] 117 mg/dL Low 140-200 [facility] Comment on above: Chol less than 200 m g/dl low riskChol 201-239 mg/dl borderline riskChol 240 mg/dl and greater high risk Result Comment: Chol less than 200 mg/dl low risk Chol 201-239 mg/dl borderline risk Chol 240 mg/dl and greater high risk Performed By: #### G LULS #### Point of Care testing , Cholesterol [Mass/Vol] Cholesterol [Mass/volume] in Serum or Plasma Low 140-200 [facility] Comment on above: Chol less than 200 m g/dl low riskChol 201-239 mg/dl borderline riskChol 240 mg/dl and greater high risk Cholesterol in HDL [Mass/vol ume] in Serum or PlasmaOrdered By: Mckinley Palomares on 12-30-2023 Cholesterol in HDL [Mass/Vol] Serum or plasma high density lipoprotein (HDL) cholesterol measurement [facility] Comment on above: HDL CHOL ATP-III CLA SSIFICATION Cardiovascular RiskHDL > or equal to 60 mg/dL LOWHDL < 40 mg/dL HIGH Cholesterol in LDL Calc [Mas s/Vol]Ordered By: Mckinley Palomares on 12-30-2023 Cholesterol in LDL [Mass/Vol] 37 mg/dL 0-100 [facility] Comment on above: LDL ATP III CLASSIFI CATIONLDL less than 100 mg/dL OptimalLDL 100-129 mg/dL Near or above optimalLDL 130-159 mg/dL Borderline highLDL 160-189 mg/dL HighLDL greater than 189 mg/dL Very high Cholesterol in LDL [Mass/Vol] Cholesterol in LDL [Mass/volume] in Serum or Plasma by calculation 0 [facility] Comment on above: LDL ATP III CLASSIFI CATIONLDL less than 100 mg/dL OptimalLDL 100-129 mg/dL Near or above optimalLDL 130-159 mg/dL Borderline highLDL 160-189 mg/dL HighLDL greater than 189 mg/dL Very high Cholesterol in VLDL Calc [Ma ss/Vol]Ordered By: Mckinley Palomares on 12-30-2023 Cholesterol in VLDL [Mass/Vol] 29 mg/dL [facility] Cholesterol in VLDL [Mass/Vol] Cholesterol in VLDL [Mass/volume] in Serum or Plasma by calculation [facility] Glucose Poct Glucometerson 0 12-30-2023 Glucose [Mass/Vol] 132 mg/dL Normal [facility] Comment on above: Result Comment: [facility] Glucose Reference Range is dependent on time and content of last meal. Glucose of more than 200 mg/dL in a nonstressed, ambulatory subject supports the diagnosis of Diabetes Mellitus. PERFORMED BY: [place] [address] [place] [address] PATHOLOGIST BINDERY LIBRARY TECHNICAL ASSISTANT ARIEL DILL M.D. Performed By: #### G LULS #### Point of Care testing , Glucose [Mass/Vol] 114 mg/dL Normal [facility] Comment on above: Result Comment: [facility] Glucose Reference Range is dependent on time and content of last meal. Glucose of more than 200 mg/dL in a nonstressed, ambulatory subject supports the diagnosis of Diabetes Mellitus. PERFORMED BY: [address] [place] [address] PATHOLOGIST BINDERY LIBRARY TECHNICAL ASSISTANT ARIEL DILL M.D. Performed By: #### G LULS #### Point of Care testing , Glucose [Mass/Vol] 172 mg/dL Normal [facility] Comment on above: Result Comment: [facility] Glucose Reference Range is dependent on time and content of last meal. Glucose of more than 200 mg/dL in a nonstressed, ambulatory subject supports the diagnosis of Diabetes Mellitus. PERFORMED BY: [address] [place] [address] PATHOLOGIST BINDERY LIBRARY TECHNICAL ASSISTANT ARIEL DILL M.D. Performed By: #### G LULS #### Point of Care testing , Glucose [Mass/Vol] 97 mg/dL Normal [facility] Comment on above: Result Comment: [facility] Glucose Reference Range is dependent on time and content of last meal. Glucose of more than 200 mg/dL in a nonstressed, ambulatory subject supports the diagnosis of Diabetes Mellitus. PERFORMED BY: [address] [place] [address] PATHOLOGIST BINDERY LIBRARY TECHNICAL ASSISTANT ARIEL DILL M.D. Performed By: #### G LULS #### Point of Care testing , Lipid Panelon 12-30-2023 LDL Cholesterol,Calculate d 37 mg/dL Normal 0-100 [facility] Comment on above: Result Comment: LDL ATP III CLASSIFICATION LDL less than 100 mg/dL Optimal LDL 100-129 mg/dL Near or above optimal LDL 130-159 mg/dL Borderline high LDL 160-189 mg/dL High LDL greater than 189 mg/dL Very high Performed By: #### G LULS #### Point of Care testing , Triglyceride w/Reflex 147 mg/dL Normal 0-149 [facility] Comment on above: Result Comment: TRIG ATP III CLASSIFICATION TRIG less than 150 mg/dL Normal TRIG 150-199 mg/dL Borderline high TRIG 200-500 mg/dL High TRIG greater than 500 mg/dL Very high Standard traceable to the Center for Disease Conrtrol and Prevention (CDC) test method. Performed By: #### G LULS #### Point of Care testing , VLDL CHOLESTEROL 29 mg/dL Normal [facility] Comment on above: Performed By: #### G LULS #### Point of Care testing , Serum or plasma high density lipoprotein (HDL) cholesterol measurementOrdered By: Mckinley Palomares on 12-30-2023 Cholesterol in HDL [Mass/Vol] 51 mg/dL Normal 23-92 [facility] Comment on above: HDL CHOL ATP-III CLA SSIFICATION Cardiovascular RiskHDL > or equal to 60 mg/dL LOWHDL < 40 mg/dL HIGH Result Comment: HDL CHOL ATP-III CLASSIFICATION Cardiovascular Risk HDL > or equal to 60 mg/dL LOW HDL < 40 mg/dL HIGH Performed By: #### G LULS #### Point of Care testing , Serum or plasma total choles terol/high density lipoprotein (HDL) cholesterol mass ratOrdered By: Mckinley Palomares on 12-30-2023 Cholesterol.total/Cho lesterol in HDL [Mass ratio] 2.3 {ratio} Normal <5.0 [facility] Comment on above: Performed By: #### G LULS #### Point of Care testing , Cholesterol.total/Cho lesterol in HDL [Mass ratio] Serum or plasma total cholesterol/high density lipoprotein (HDL) cholesterol mass rat <5.0 [facility] Thyroid Stim Hormone w/Rflxo n 12-30-2023 Thyroid Stim Hormone w/Rflx 0.48 u[iU]/mL Normal 0.45-5.33 [facility] Comment on above: Performed By: #### G LULS #### Point of Care testing , Thyrotropin [Units/volume] i n Serum or PlasmaOrdered By: Mckinley Palomares on 12-30-2023 TSH Qn 0.48 m[IU]/L 0.45-5.33 [facility] TSH Qn Thyrotropin [Units/volume] in Serum or Plasma 0.45-5.33 [facility] Triglyceride [Mass/volume] i n Serum or PlasmaOrdered By: Mckinley Palomares on 12-30-2023 Triglyceride [Mass/Vol] 147 mg/dL 0-149 [facility] Comment on above: TRIG ATP III CLASSIF ICATIONTRIG less than 150 mg/dL NormalTRIG 150-199 mg/dL Borderline highTRIG 200-500 mg/dL High TRIG greater than 500 mg/dL Very highStandard traceable to the Center for Disease Conrtrol and Prevention (CDC) test method. Triglyceride [Mass/Vol] Triglyceride [Mass/volume] in Serum or Plasma 0-149 [facility] Comment on above: TRIG ATP III CLASSIF ICATIONTRIG less than 150 mg/dL NormalTRIG 150-199 mg/dL Borderline highTRIG 200-500 mg/dL High TRIG greater than 500 mg/dL Very highStandard traceable to the Center for Disease Conrtrol and Prevention (CDC) test method. Vitamin D 25 Hydroxy Totalon 12-30-2023 Vitamin D 25 Hydroxy Total 56.6 ng/mL Normal 30-100 [facility] Comment on above: Result Comment: AMAYA MIN D STATUS 25([place])VITAMIN D RANGE (ng/mL) Deficient <20 Insufficient 20 to <30 Sufficient 30 to 100 Reference: Pedro Luis Kim, Alicia MONTIEL, et al. Evaluation,treatment, and prevention of vitamin D deficiency; an Endocrine Society clinical practice guideline. JCEM. 2010; 96(7):1911-30. PERFORMED BY: [address] [place] [address] PATHOLOGIST BINDERY LIBRARY TECHNICAL ASSISTANT ARIEL DILL M.D. Performed By: #### G LULS #### Point of Care testing , Vitamin D+Metabolites [Mass/ volume] in Serum or PlasmaOrdered By: Mckinley Palomares on 12-30-2023 Vitamin D+Metabolites [Mass/Vol] 56.6 ng/mL 30-100 [facility] Comment on above: VITAMIN D STATUS 25( [place])VITAMIN D RANGE (ng/mL) Deficient <20 Insufficient 20 to <30Sufficient 30 to 100Reference: Perdo Luis Kim, Alicia MONTIEL, et al. Evaluation,treatment, and prevention of vitamin D deficiency; an Endocrine Society clinical practice guideline. JCEM. 2011 [place]; 96(7):1911-30. Vitamin D+Metabolites [Mass/Vol] Vitamin D+Metabolites [Mass/volume] in Serum or Plasma 30-100 [facility] Comment on above: VITAMIN D STATUS 25( [place])VITAMIN D RANGE (ng/mL) Deficient <20 Insufficient 20 to <30Sufficient 30 to 100Reference: Yonathan MF,Pedro Luis NC, Alicia MONTIEL, et al. Evaluation,treatment, and prevention of vitamin D deficiency; an Endocrine Society clinical practice guideline. JCEM. 2010; 96(7):1911-30. Ambulatory Visit Summaryon 0 12-29-2023 Ambulatory Visit Summary Ambulatory Visit Summary SABINA CANELA :1950 Visit Date:12/29/2023 Ambulatory Visit Instructions Your Diagnosis Major depressive disorder, recurrent, moderate Generalized anxiety disorder Class 1 obesity due to excess calories in adult BMI 31.0-31.9,adult Your Care Team Attending Physician - Lupillo MSN, APPLE PACKING HEADER-ACTIVITY THERAPIST, Loreta Wan Primary Care Physician - Lupillo MSN, APPLE PACKING HEADER-ACTIVITY THERAPISTLoreta This Is Your Medications List Misc Prescription (32 gauge pen needle 4 mm) Misc Prescription (Alcohol swabs, Jose F, band-aids) Misc Prescription (Glucometer) Misc Prescription (Lancet #100) Misc Prescription (Test Strips) Misc Prescription (alcohol) Misc Prescription (lancets) amlodipine (amLODIPine 5 mg Tab) atorvastatin (Lipitor 40 mg Tab) celecoxib (CeleBREX 100 mg Cap) ergocalciferol (ergocalciferol 50,000 intl units Cap) folic acid (folic acid 1 mg Tab) glimepiride (glimepiride 4 mg Tab) insulin glargine (Basaglar KwikPen 100 units/mL subcutaneous solution) ketoconazole topical (ketoconazole Top 2% Crm) levothyroxine (levothyroxine 88 mcg (0.088 mg) Tab) lisinopril (lisinopril 2.5 mg Tab) magnesium citrate memantine (Namenda 10 mg oral tablet) mirabegron (Myrbetriq 50 mg oral tablet, extended release) nystatin topical (nystatin Top 100,000 units/g Pwdr) ondansetron (Zofran 4 mg Tab) propranolol (propranolol 120 mg Cap-ER) ropinirole (Requip 0.25 mg Tab) semaglutide (Rybelsus 7 mg oral tablet) trazodone (traZODONE 50 mg Tab) triamcinolone topical (triamcinolone Top 0.025% Crm) Procedures Performed Tubal ligation. Discharge Vitals Temperature (Temporal Artery) 36.2 ?C Heart Rate (Peripheral) 70 Respiratory Rate 18 Blood Pressure 132/88 Height 165 cm Height 65 in Weight 84.8 kg Weight 186.56 lb BMI 31.15 What to do next Scheduled Follow-Up Appointments Thursday 9:40 AM EDT With: Lupillo MORA, Loreta COPE Where: [address] [address]23 8:00 AM EST With: Where: [address] [address]- Thursday 7:00 AM EST With: Jia Woodward Where: [address] [address]- You Need to Schedule the Following Appointments Follow Up with Lupillo MORA, Loreta COPE When: In 1 month Where: [address] [place] [id number] Medications What How Much When Why Instructions Unchanged amlodipine (amLODIPine 5 mg Tab) 1 Tablets By Mouth Every day Unchanged atorvastatin (Lipitor 40 mg Tab) 1 Tablets By Mouth Every day Unchanged celecoxib (CeleBREX 100 mg Cap) 1 Capsules By Mouth Every day Unchanged ergocalciferol (ergocalciferol 50,000 intl units Cap) 1 Capsules By Mouth Every week Unchanged folic acid (folic acid 1 mg Tab) 1 Tablets By Mouth Every day Unchanged glimepiride (glimepiride 4 mg Tab) 1 Tablets By Mouth Every day Unchanged insulin glargine (Basaglar KwikPen 100 units/ mL subcutaneous solution) See instructions 30 units SUBQ every morning with food 20 units SUBQ every evening rotate injection sites Unchanged ketoconazole topical (ketoconazole Top 2% Crm) 1 Application Topical Every day Unchanged levothyroxine (levothyroxine 88 mcg (0.088 mg) Tab) 1 Tablets By Mouth Every day take 1 tablet by mouth every morning ON AN EMPTY STOMACH Unchanged lisinopril (lisinopril 2.5 mg Tab) 1 Tablets By Mouth Every day Unchanged magnesium citrate Unchanged memantine (Namenda 10 mg oral tablet) 1 Tablets By Mouth 2 times a day Unchanged mirabegron (Myrbetriq 50 mg oral tablet, extended release) 1 Tablets By Mouth Every day Unchanged Misc Prescription (32 gauge pen needle 4 mm) See instructions Use to administer basaglar BID Unchanged Misc Prescription (Alcohol swabs, Jose F, band-aids) 0 Type 2 diabetes mellitus with hyperglycemia Duration: 30 Days Diabetic supply for a month with 2 refills Unchanged Misc Prescription (alcohol) See instructions tests BID alcohol wipes Unchanged Misc Prescription (Glucometer) 0 Type 2 diabetes mellitus with hyperglycemia Unchanged Misc Prescription (Lancet #100) 0 Type 2 diabetes mellitus with hyperglycemia Diagnoses diabetes. 3 month supplies Unchanged Misc Prescription (lancets) See instructions Diabetes check BID Unchanged Misc Prescription (Test Strips) See instructions To be used to check blood sugars BID and as needed. Dx: E11.9 Unchanged nystatin topical (nystatin Top 100,000 units/ g Pwdr) 1 Application Topical 2 times a day Unchanged ondansetron (Zofran 4 mg Tab) 1 Tablets By Mouth Every 8 hours as needed for Nausea/Vomiting Unchanged propranolol (propranolol 120 mg Cap-ER) 1 Capsules By Mouth Every day Unchanged ropinirole (Requip 0.25 mg Tab) 1 Tablets By Mouth Every day (more content not included)... Normal [facility] CBC w/ Auto Diffon 4 Basophils/100 WBC (Bld) 0.6 % Normal 0.0-2.0 [facility] Comment on above: Performed By: #### 2 [id number] #### [facility] [address] [place] [address] Basophils/Leukocytes Auto (Bld) [Pure # fraction] 0.0 E9/L Normal 0.0-0.2 [facility] Comment on above: Performed By: #### 2 [id number] #### [facility] [address] [place] [address] Eosinophils (Bld) [#/Vol] 0.1 E9/L Normal 0.0-0.5 [facility] Comment on above: Performed By: #### 2 [id number] #### [facility] [address] [place] [address] Eosinophils/100 WBC (Bld) 2.2 % Normal 0.0-8.0 [facility] Comment on above: Performed By: #### 2 [id number] #### [facility] [address] [place] [address] Erythrocyte distribution width (RBC) [Ratio] 13.3 % Normal 10.9-14.2 [facility] Comment on above: Performed By: #### 2 [id number] #### [facility] [address] [place] [address] Hematocrit (Bld) [Volume fraction] 35.6 % Normal 34.0-46.0 [facility] Comment on above: Performed By: #### 2 [id number] #### [facility] [address], [place] [address] Hemoglobin (Bld) [Mass/Vol] 12.2 g/dL Normal 12.0-16.0 [facility] Comment on above: Performed By: #### 2 [id number] #### [facility] [address] [place] [address] Lymphocytes (Bld) [#/Vol] 1.6 E9/L Normal 1.0-4.0 [facility] Comment on above: Performed By: #### 2 [id number] #### [facility] [address] [place] [address] Lymphocytes/100 WBC (Bld) 29.5 % Normal 14.0-50.0 [facility] Comment on above: Performed By: #### 2 [id number] #### [facility] [address] [place] [address] MCH (RBC) [Entitic mass] 30.5 pg Normal 27.0-34.0 [facility] Comment on above: Performed By: #### 2 [id number] #### [facility] [address] [place] [address] MCHC (RBC) [Mass/Vol] 34.2 g/dL Normal 31.4-36.0 [facility] Comment on above: Performed By: #### 2 [id number] #### [facility] [address] [place] [address] MCV (RBC) [Entitic vol] 89.2 fL Normal 80.0-100.0 [facility] Comment on above: Performed By: #### 2 [id number] #### [facility] [address] [place] [address] Monocytes (Bld) [#/Vol] 0.6 E9/L Normal 0.2-1.0 [facility] Comment on above: Performed By: #### 2 [id number] #### [facility] [address] [place] [address] Neutrophils (Bld) [#/Vol] 3.1 E9/L Normal 2.0-7.5 [facility] Comment on above: Performed By: #### 2 [id number] #### [facility] [address] [place] [address] Neutrophils/100 WBC (Bld) 56.9 % Normal 36.0-75.0 [facility] Comment on above: Performed By: #### 2 [id number] #### [facility] [address] [place] [address] Platelet 202.0 E9/L Normal 150.0-500.0 [facility] Comment on above: Performed By: #### 2 [id number] #### [facility] [address] [place] [address] Platelet mean volume (Bld) [Entitic vol] 8.3 fL Normal 6.4-10.8 [facility] Comment on above: Performed By: #### 2 [id number] #### [facility] [address] [place] [address] RBC (Bld) [#/Vol] 4.0 E12/L Low 4.3-5.9 [facility] Comment on above: Performed By: #### 2 [id number] #### [facility] [address] [place] [address] WBC corrected for nucl RBC Auto (Bld) [#/Vol] 5.4 E9/L Normal 4.0-11.0 [facility] Comment on above: Performed By: #### 2 [id number] #### [facility] [address] [place] [address] CHEMISTRYOrdered By: SYSTEM SYSTEM on 12-29-2023 Amphetamines Screen method >1000 ng/mL Ql (U) NEGATIVE 7 (12/29/23 4:03 PM) Normal NEGATIVE [facility] Comment on above: Interpretive Data: N egative Cutoff: <1000 ng/mL Barbiturates Screen Ql (U) NEGATIVE 8 (12/29/23 4:03 PM) Normal NEGATIVE [facility] Comment on above: Interpretive Data: N egative Cutoff: <200 ng/mL Benzodiazepines Ql (U) NEGATIVE 1 (12/29/23 4:03 PM) Normal NEGATIVE [facility] Comment on above: Interpretive Data: N egative Cutoff: <200 ng/mL Cannabinoids Screen Ql (U) NEGATIVE 6 (12/29/23 4:03 PM) Normal NEGATIVE [facility] Comment on above: Interpretive Data: N egative Cutoff: <50 ng/mL Cocaine Ql (U) NEGATIVE 2 (12/29/23 4:03 PM) Normal NEGATIVE [facility] Comment on above: Interpretive Data: N egative Cutoff: <300 ng/mL Opiates Screen Ql (U) NEGATIVE 4 (12/29/23 4:03 PM) Normal NEGATIVE [facility] Comment on above: Interpretive Data: N egative Cutoff: <300 ng/mL Phencyclidine Screen method >25 ng/mL Ql (U) NEGATIVE 5 (12/29/23 4:03 PM) Normal NEGATIVE [facility] Comment on above: Interpretive Data: N egative Cutoff: <25 ng/mL These drug screen results are to be used for medical (i.e., treatment) purposes only. Unconfirmed drug screening results must not be used for non-medical purposes (e.g., employment testing, legal testing). U Fentanyl NEGATIVE 11 (12/29/23 4:03 PM) Normal NEGATIVE [facility] Comment on above: Interpretive Data: N egative Cutoff: <5 ng/mL These drug screen results are to be used for medical (i.e., treatment) purposes only. Unconfirmed drug screening results must not be used for non-medical purposes (e.g., employment testing, legal testing). Albumin [Mass/Vol] 3.8 g/dL Normal 3.3 - 5.0 gm/dL R [facility] Albumin/Globulin [Mass ratio] 1.7 {ratio} Normal 1.1 - 2.2 [facility] ALP [Catalytic activity/Vol] 64 [iU]/d Normal 21 - 98 Int._Unit/L [facility] ALT No additional P-5'-P [Catalytic activity/Vol] 18 [iU]/d Normal 6 - 46 Int._Unit/L [facility] Anion gap [Moles/Vol] 8 mmol/L Normal 6 - 16 mEq/L R emisol Chem AST [Catalytic activity/Vol] 21 [iU]/d Normal 5 - 43 Int._Unit/L [facility] Bilirubin [Mass/Vol] 0.8 mg/dL Normal 0.0 - 1.1 mg/dL [facility] Calcium [Mass/Vol] 9.7 mg/dL Normal 8.9 - 11. 1 mg/dL [facility] Chloride [Moles/Vol] 107 mmol/L Normal 101 - 1 11 mmol/L [facility] CO2 [Moles/Vol] 25 mmol/L Normal 21 - 31 mmol/L [facility] Creatinine [Mass/Vol] 1.1 mg/dL Normal 0.5 - 1.3 mg/d L [facility] eGFR 54 mL/min/1.73 m2 Low >=59mL/min /1.73 m2 [facility] Ethanol Lvl mg/dL Normal <=11mg/dL [facility] Globulin (S) [Mass/Vol] 2.2 g/dL Normal 1.4 - 4.0 gm/dL [facility] Glucose [Mass/Vol] 160 mg/dL Normal 55 - 199 mg/dL Re misol Chem Potassium [Moles/Vol] 4.3 mmol/L Normal 3.5 - 5.3 mmol/L [facility] Protein [Mass/Vol] 6.0 g/dL Normal 6.0 - 7.8 gm/dL R em[facility] Chem Sodium [Moles/Vol] 136 mmol/L Normal 135 - 145 mmol/L [facility] Urea nitrogen [Mass/Vol] 17 mg/dL Normal 5 - 21 mg/dL [facility] Urea nitrogen/Creatinine [Mass ratio] 16 mg/mg Normal 10 - 20 [facility] CHEMISTRYOrdered By: Lab ROP User on 12-29-2023 Glucose [Mass/Vol] 141 mg/dL High 55 - 99 mg/dL FTM C POC Subsection Comment on above: Result Comment: Jing poli Meter POC Device SN [id number] 1 Invalid Interpretation Code [facility] POC Subsection POC User ID [id number] 1 Invalid Interpretation Code FT POC Subsection POC Username MICHAEL FREY Invalid Interpretation Code FT POC Subsection Glucose [Mass/Vol] 52 mg/dL Low 55 - 99 mg/dL FTM C POC Subsection Comment on above: Result Comment: Sona moran RN/MD POC Device SN [id number] 1 Invalid Interpretation Code [facility] POC Subsection POC User ID [id number] 1 Invalid Interpretation Code FT POC Subsection POC Username CHING CARROLL Invalid Interpretation Code FT POC Subsection CMPon 12-29-2023 Albumin [Mass/Vol] 3.8 g/dL Normal 3.3-5.0 [facility] Comment on above: Performed By: #### 2 [id number] #### [facility] [address] [place] [address] Albumin/Globulin (S) [Mass conc ratio] 1.7 Normal 1.1-2.2 [facility] Comment on above: Performed By: #### 2 [id number] #### [facility] [address] [place] [address] ALP [Catalytic activity/Vol] 64 Int._Unit/L Normal 21-98 [facility] Comment on above: Performed By: #### 2 [id number] #### [facility] [address] [place] [address] ALT No additional P-5'-P [Catalytic activity/Vol] 18 Int._Unit/L Normal 6-46 [facility] Comment on above: Performed By: #### 2 [id number] #### [facility] [address] [place] [address] Anion gap [Moles/Vol] 8 mmol/L Normal 6-16 [facility] Comment on above: Performed By: #### 2 [id number] #### [facility] [address] [place] [address] AST [Catalytic activity/Vol] 21 Int._Unit/L Normal 5-43 [facility] Comment on above: Performed By: #### 2 [id number] #### [facility] [address] [place] [address] Bilirubin [Mass/Vol] 0.8 mg/dL Normal 0.0-1.1 [facility] Comment on above: Performed By: #### 2 [id number] #### [facility] [address] [place] [address] Calcium [Mass/Vol] 9.7 mg/dL Normal 8.9-11.1 [facility] Comment on above: Performed By: #### 2 [id number] #### [facility] [address] [place] [address] Chloride [Moles/Vol] 107 mmol/L Normal 101-111 [facility] Comment on above: Performed By: #### 2 [id number] #### [facility] [address] [place] [address] CO2 [Moles/Vol] 25 mmol/L Normal 21-31 [facility] Comment on above: Performed By: #### 2 [id number] #### [facility] [address] [place] [address] Creatinine [Mass/Vol] 1.1 mg/dL Normal 0.5-1.3 [facility] Comment on above: Performed By: #### 2 [id number] #### [facility] [address] [place] [address] Globulin (S) [Mass/Vol] 2.2 g/dL Normal 1.4-4.0 [facility] Comment on above: Performed By: #### 2 [id number] #### [facility] [address] [place] [address] Glucose [Mass/Vol] 160 mg/dL Normal 55-199 [facility] Comment on above: Performed By: #### 2 [id number] #### [facility] [address] [place] [address] Potassium [Moles/Vol] 4.3 mmol/L Normal 3.5-5.3 [facility] Comment on above: Performed By: #### 2 [id number] #### [facility] [address] [place] [address] Protein [Mass/Vol] 6.0 g/dL Normal 6.0-7.8 [facility] Comment on above: Performed By: #### 2 [id number] #### [facility] [address] [place] [address] Sodium [Moles/Vol] 136 mmol/L Normal 135-145 [facility] Comment on above: Performed By: #### 2 [id number] #### [facility] [address] [place] [address] Urea nitrogen [Mass/Vol] 17 mg/dL Normal 5-21 [facility] Comment on above: Performed By: #### 2 [id number] #### [facility] [address] [place] [address] Urea nitrogen/Creatinine [Mass ratio] 16 No Units Normal 10-20 [facility] Comment on above: Performed By: #### 2 [id number] #### [facility] [address] [place] [address] CT Head or Brain w/o Contras ton 12-29-2023 CT Head or Brain w/o Contrast Exam Date/Time: 12/29/2023 12:40 EDT Reason for Exam: Hallucinations;Other (please specify) Report IMPRESSION: NO EVIDENCE OF INTRACRANIAL HEMORRHAGE. CLINICAL HISTORY: Hallucinations. COMMENT: Unenhanced images were obtained. The ventricles and basal cisterns appear within normal limits. The sylvian fissures and frontal and parietal cortical sulci bilaterally are dilated. There is no mass effect nor midline shift. There are small subtle ill-defined areas of slightly decreased attenuation involving cerebral white matter bilaterally, that are nonspecific, but with small vessel ischemic changes suspected. There is no evidence of intracranial hemorrhage nor extra-axial hematoma. No mass lesion is evident. No skull fracture is noted. All CT scans at this facility use dose modulation, iterative reconstruction, and/or weight based dosing when appropriate to reduce radiation dose to as low as reasonably achievable. Ordering Provider: Vasile Robison FINAL REPORT Dictated: 12/29/2023 12:45 pm Tyrell Neal M.D. Signed (Electronic Signature): 12/29/2023 12:45 pm Signed by: Tyrell Neal M.D. Transcribed by: CHAGO Technologist: THUY Normal [facility] Capillary Glucose POCon 12-06 Glucose [Mass/Vol] 141 mg/dL High 55-99 [facility] Comment on above: Result Comment: Jing poli Meter Performed By: #### 2 [id number] #### [facility] [address] [place] [address] Glucose [Mass/Vol] 52 mg/dL Low 55-99 [facility] Comment on above: Result Comment: Sona moran RN/MD Performed By: #### 2 [id number] #### [facility] [address] [place] [address] ED Clinical Summaryon 2023 ED Clinical Summary ED Clinical Summary [address] [address] ED Clinical Summary Person Information Name: SABINA CANELA [place] Age: 73 Years : 1950 Sex: Female Language: Senegalese PCP: Lupillo MSN, APPLE PACKING HEADER-ACTIVITY THERAPIST, Loreta Wan Marital Status: Visit Id: Visit Reason: Suicidal ideation; SEMT BY LORETA CASILLAS Speciality: Acuity: 2 Enc Type: Emergency Med Service: Emergency Arrival: 12/29/2023 11:34:18 Discharge: 12/29/2023 21:03:36 LOS: 000 09:29 Checkin: 12/29/2023 11:34:18 Checkout: 12/29/2023 21:03:36 Dispo Type: Undefined HC Fac EVENTS: Event Name Event Status Request Date/Time Start Date/Time Complete Date/Time Arrive Complete 12/29/2023 11:34:18 12/29/2023 11:34:18 12/29/2023 11:34:18 Document Home Meds Request 12/29/2023 11:34:18 Triage Complete 12/29/2023 11:34:18 12/29/2023 11:44:40 12/29/2023 11:44:40 Registration Complete 12/29/2023 11:39:13 12/29/2023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 Performed By: #### 2 [id number] ####[facility] [address] [place] [address] UA with Cult Rflxon 12-29-19 24 Bilirubin Ql (U) Negative Normal Negative [facility] Comment on above: Performed By: #### 4 [id number] #### [facility] [address] [place] [address] Clarity (U) Clear Normal Clear [facility] Comment on above: Performed By: #### 4 [id number] #### [facility] [address] [place] [address] Color (U) Colorless Abnormal Yellow [facility] Comment on above: Result Comment: Micr oscopic readings are only performed on those samples that meet specific criteria set forth by [facility]. Performed By: #### 4 [id number] #### [facility] [address] [place] [address] Glucose Ql (U) Negative Normal Negative [facility] Comment on above: Performed By: #### 4 [id number] #### [facility] [address] [place] [address] Hemoglobin Auto test strip (U) [Mass/Vol] Negative Normal Negative [facility] Comment on above: Performed By: #### 4 [id number] #### [facility] [address] [place] [address] Ketones Auto test strip Ql (U) Negative Normal Negative [facility] Comment on above: Performed By: #### 4 [id number] #### [facility] [address] [place] [address] Leukocyte esterase Auto test strip Ql (U) Negative Normal Negative [facility] Comment on above: Performed By: #### 4 [id number] #### [facility] [address] [place] [address] Nitrite Auto test strip Ql (U) Negative Normal Negative [facility] Comment on above: Performed By: #### 4 [id number] #### [facility] [address] [place] [address] pH (U) 6.0 [pH] Invalid Interpretation Code 5.0-9.0 [facility] Comment on above: Performed By: #### 4 [id number] #### [facility] [address] [place] [address] Protein Ql (U) Negative Normal Negative [facility] Comment on above: Performed By: #### 4 [id number] #### [facility] [address] [place] [address] Specific gravity (U) [Rel density] 1.007 Invalid Interpretation Code 1.005-1.030 [facility] Comment on above: Performed By: #### 4 [id number] #### [facility] [address] [place] [address] Urobilinogen (U) [Mass/Vol] Negative Normal Negative [facility] Comment on above: Performed By: #### 4 [id number] #### [facility] [address] [place] [address] Type of Urine collection method Clean Catch Normal [facility] Comment on above: Performed By: #### 4 [id number] #### [facility] [address] [place] [address] URINALYSISOrdered By: SYSTEM SYSTEM on 12-29-2023 Bilirubin Ql (U) Negative Normal Negativemg/dL [facility] UA Auto SS Clarity (U) Clear (12/29/23 4:03 PM) Normal Clear [facility] UA Auto SS Color (U) Colorless 3 *ABN* (12/29/23 4:03 PM) Invalid Interpretation Code Yellow [facility] UA Auto SS Comment on above: Interpretive Data: M icroscopic readings are only performed on those samples that meet specific criteria set forth by [facility]. Glucose Ql (U) Negative Normal Negativemg/dL [facility] UA Auto SS Hemoglobin Auto test strip (U) [Mass/Vol] Negative Normal Negativemg/dL [facility] UA Aut o SS Ketones Auto test strip Ql (U) Negative Normal Negativemg/dL [facility] UA Auto SS Leukocyte esterase Auto test strip Ql (U) Negative Normal NegativeLeu/uL [facility] UA Auto SS Nitrite Auto test strip Ql (U) Negative Normal Negativemg/dL [facility] UA Auto SS pH (U) 6.0 *NA* (12/29/23 4:03 PM) Invalid Interpretation Code 5.0 - 9.0 [facility] UA Auto SS Protein Ql (U) Negative Normal Negativemg/dL [facility] UA Auto SS Specific gravity (U) [Rel density] 1.007 *NA* (12/29/23 4:03 PM) Invalid Interpretation Code 1.005 - 1.030 [facility] UA Auto SS Urobilinogen (U) [Mass/Vol] Negative Normal Negativemg/dL [facility] UA Auto SS URINALYSISOrdered By: Vasile Robison on 12-29-2023 UA Spec Desc Clean Catch (12/29/23 4:03 PM) Normal [facility] UA Auto SS eGFRon 12-29-2023 eGFR 54 mL/min/1.73 m2 Low >=59 [facility] Comment on above: Performed By: #### 1 [id number] #### [facility] [address] [place] [address] Family Medicine Office/Clini c Noteon 12-02-2023 Family Medicine Office/Clinic Note Family Medicine Office/Clinic Note Chief Complaint Here for 3 month DM HPI Staff Patient is here for follow up on Diabetes. How often are you checking your blood sugars? 2 times per day What are your average readings? 116-123 Do you have low blood sugar readings/symptoms? Denies Do you have high blood sugar readings/symptoms? Denies Are you compliant with your diet? yes Do you exercise? no Are you compliant with your medications? Yes Having difficulty affording your medications? No Last A1c: Eye Exam? Foot Exam? Do you have any of the following symptoms? Vision problems? Denies GI-Nausea/committing/ bloating? Denies Lightheadedness? Denies Paresthesias, Ulcerations or sores? Denies History of Present Illness I have reviewed staff HPI and it is correct. Sabina Canela is a 72-year-old female who is here for a 3-month follow-up for her diabetes. Overall, her blood sugars have been doing very well and blood pressures have been stable. The patient needs a couple of refills today and was requesting a foot check. Her blood glucose has been doing very well, and her blood pressures have been stable. She is currently administering 20 units in the morning and 30 units at night. She monitors her blood glucose levels twice daily, but only when she feels weird. She requires a refill of her Rybelsus prescription and her test strips. She is due for her A1c check. She has expressed concerns about her lisinopril medication, which was previously discontinued due to a persistent cough. Her vault clerk, Dr. Presley, recommended lisinopril for kidney protection, who advised her to discuss about continuing the lisinopril. She is unsure of the date of her last thyroid check. She needs refills of levothyroxine. She noticed thick skin callus on her foot while showering this morning and wishes to have it examined. She has never undergone a foot exam. She has lost some weight. She had a sleep study done and she is going to do a repeat sleep study in a couple of weeks. Patient has no other questions or concerns at this time. Review of Systems PHQ Score Initial Depression Screen Score: 0 SCORE All negative except as noted in the HPI. Physical Exam Vitals & Measurements T: 37 ?C(Oral) HR: 68(Peripheral) RR: 18 BP: 128/70 SpO2: 95% HT: 65 in HT: 165 cm WT: 85 kg WT: 187 lb BMI: 31.22 General: Well developed, obese female, well hydrated, in no acute distress. Eyes: EOMI, conjunctiva and sclera are clear Ears: No deformity or lesion of external ear. Canals and TM appear normal bilaterally. TM's intact and pearly das with normal light reflex. Hearing grossly normal and conversational to speech Nose: no deformity, discharge, inflammation or lesions Mouth: Mucous membranes moist with non-erythematous or edematous oropharynx and posterior pharynx. Tongue normal and free of lesions. Neck: supple, trachea is midline with no masses or lymphadenopathy. Thyroid is without nodules or tenderness Lungs: Normal respiratory effort and clear to auscultation Cardio: regular rate and rhythm, no murmur or rub Musculoskeletal: No deformity or scoliosis noted. Normal range of motion. Joints normal. No erythema, edema, effusion, or ecchymosis Extremity: No clubbing, cyanosis, edema, or deformity, with normal ROM in both upper and lower bilateral extremities Neurologic: Grossly normal Skin: No rashes, ulcerations, or suspicious lesions on exposed skin Mental Status: Alert and oriented x3. Normal mood and affect Diabetic Foot Exam Decreased Monofilament Sensation Foot: Left - Normal, Right - Normal Bunions/Foot Deformity: Left - Normal, Right - Normal Abnormal Pulse Foot: Right - Normal, Left - Normal Skin Lesions Foot: Left - Normal, Right - Normal Foot Exam Result: Normal foot exam Assessment/Plan 1. Type 2 diabetes mellitus with hypercholesterolemia (E11.69: Type 2 diabetes mellitus with other specified complication) Chronic, stable, and well-controlled. The patient will continue with current regimen. The patient is dosing her insulin with 20 units q. a.m. and 30 units q. p.m. The patient is also on Rybelsus 7 mg along with glimepiride 4 mg. The importance of the following were all reviewed with the patient: -Take medications as prescribed. -Exercise and diet as discussed. -Monitoring blood sugar and HgBA1c regularly. -Monitoring urine microalbumin regularly to check for kidney damage. -Annual eye exams to prevent blindness. -Proper foot care and regularly checking feet to prevent sores and possibly loss of limbs. 2. Primary hypertension (I10: Essential (primary) hypertension) Continue with amlodipine as prescribed as well as add on lisinopril 2.5 mg for kidney protection per recommendations of the patient's vault clerk. Advised the patient that if she begins to experience cough with the lisinopril to contact the office and losartan will be trialed instead. Advised that she contact nephrology, Dr. Ryan to noti (more content not included)... Normal [facility] Comment on above: Result Comment: Elec tronically Signed By: Marvin Husain PA-C\.br\Date and Time Signed: 12/02/23 11:38 EDT\.br\Electronically Co-Signed By: Azael Banda\.br\Date and Time Co-Signed: 12/01/23 10:51 EDT Ambulatory Visit Summaryon 0 12-01-2023 Ambulatory Visit Summary Ambulatory Visit Summary SABINA CANELA :1950 Visit Date:12/01/2023 Ambulatory Visit Instructions Your Diagnosis Type 2 diabetes mellitus with hypercholesterolemia Primary hypertension Stage 3a chronic kidney disease (CKD) BMI 31.0-31.9,adult Class 1 obesity due to excess calories in adult Hypothyroid Pure hypercholesterolemia, unspecified Your Care Team Attending Physician - Marvin Husain PA-C Primary Care Physician - Marvin Husain PA-C This Is Your Medications List Misc Prescription (Test Strips) levothyroxine (levothyroxine 88 mcg (0.088 mg) Tab) lisinopril (lisinopril 2.5 mg Tab) semaglutide (Rybelsus 7 mg oral tablet) Contact prescribing physician if questions or concerns Misc Prescription (32 gauge pen needle 4 mm) Misc Prescription (Alcohol swabs, Kinde, band-aids) Misc Prescription (Glucometer) Misc Prescription (Lancet #100) amlodipine (amLODIPine 5 mg Tab) atorvastatin (Lipitor 40 mg Tab) celecoxib (CeleBREX 100 mg Cap) ergocalciferol (ergocalciferol 50,000 intl units Cap) folic acid (folic acid 1 mg Tab) glimepiride (glimepiride 4 mg Tab) insulin glargine (Basaglar KwikPen 100 units/mL subcutaneous solution) ketoconazole topical (ketoconazole Top 2% Crm) magnesium citrate memantine (Namenda 10 mg oral tablet) mirabegron (Myrbetriq 50 mg oral tablet, extended release) nystatin topical (nystatin Top 100,000 units/g Pwdr) ondansetron (Zofran 4 mg Tab) propranolol (propranolol 120 mg Cap-ER) ropinirole (Requip 0.25 mg Tab) trazodone (traZODONE 50 mg Tab) triamcinolone topical (triamcinolone Top 0.025% Crm) Procedures Performed Tubal ligation. Discharge Vitals Temperature (Oral) 37 ?C Heart Rate (Peripheral) 68 Respiratory Rate 18 Blood Pressure 128/70 Height 165 cm Height 67 in Weight 85 kg Weight 187 lb BMI 31.22 What to do next Scheduled Follow-Up Appointments Thursday 8:15 PM EDT With: Where: [facility] [address] [place] [address]- 2023 8:00 AM EST With: Where: [facility] [address] [place] [address]- Thursday 7:00 AM EST With: Jia Woodward Where: [facility] [address] [place] [address]- You Need to Schedule the Following Appointments Follow Up with Jia Woodward When: In 4 months Comments: FU for DM, CKD Where: [address] [place] [address] Medications What How Much When Why Instructions New lisinopril (lisinopril 2.5 mg Tab) 1 Tablets By Mouth Every day Refills: 1 Pickup at [facility] #[id number] Unchanged levothyroxine (levothyroxine 88 mcg (0.088 mg) Tab) 1 Tablets By Mouth Every day take 1 tablet by mouth every morning ON AN EMPTY STOMACH [id number] Unchanged [facility] Prescription (Test Strips) See instructions To be used to check blood sugars BID and as needed. Dx: E11.9 Pickup at [facility] #[id number] Unchanged semaglutide (Rybelsus 7 mg oral tablet) 1 Tablets By Mouth Every day take at least 30 minutes before first food, beverage, or other oral meds Pickup at [facility] #[id number] Unchanged amlodipine (amLODIPine 5 mg Tab) 1 Tablets By Mouth Every day Contact prescribing physician if questions or concerns Unchanged atorvastatin (Lipitor 40 mg Tab) 1 Tablets By Mouth Every day Contact prescribing physician if questions or concerns Unchanged celecoxib (CeleBREX 100 mg Cap) 1 Capsules By Mouth Every day Contact prescribing physician if questions or concerns Unchanged ergocalciferol (ergocalciferol 50,000 intl units Cap) 1 Capsules By Mouth Every week Contact prescribing physician if questions or concerns Unchanged folic acid (folic acid 1 mg Tab) 1 Tablets By Mouth Every day Contact prescribing physician if questions or concerns Unchanged glimepiride (glimepiride 4 mg Tab) 1 Tablets By Mouth Every day Contact prescribing physician if questions or concerns Unchanged insulin glargine (Basaglar KwikPen 100 units/ mL subcutaneous solution) See instructions 30 units SUBQ every morning with food 20 units SUBQ every evening rotate injection sites Contact prescribing physician if questions or concerns Unchanged ketoconazole topical (ketoconazole Top 2% Crm) 1 Application Topical Every day Contact prescribing physician if questions or concerns Unchanged magnesium citrate Contact prescribing physician if questions or concerns Unchanged memantine (Namenda 10 mg oral tablet) 1 Tablets By Mouth 2 times a day Contact prescribing physician if questions or concerns Unchanged mirabegron (Myrbetriq 50 mg oral tablet, extended release) 1 Tablets By Mouth Every day Contact prescribing physician if questions or concerns Unchanged Misc Prescription (32 gauge pen needle 4 mm) See instructions Use to administer basaglar (more content not included)... Normal [facility] CHEMISTRYOrdered By: Kylee Cooper on 12-01-2023 HbA1c (Bld) [Mass fraction] 6.5 % High <=5.9% [facility] ChemAutoSS CHEMISTRYOrdered By: SYSTEM SYSTEM on 12-01-2023 TSH Qn 0.65 m[IU]/L Normal 0.34 - 5.60 mcIU/mL Remisol Chem [id number] 12-01-2023 HbA1c (Bld) [Mass fraction] 6.5 % High <=5.9 [facility] Comment on above: Performed By: #### [id number] #### [facility] [address] [place] [address] TSH With T4fr Reflexon 11-30 TSH Qn 0.65 m[IU]/L Normal 0.34-5.60 [facility] Comment on above: Performed By: #### 1 [id number] #### [facility] [address] [place] [address] Albumin [Mass/volume] in Ser um or Plasma by Bromocresol green (BCG) dye binding methoOrdered By: Timothy Presley on 11-18-2023 Albumin BCG dye [Mass/Vol] 3.8 g/dL 3.5-5.7 [facility] Bacteria [Presence] in Urine by AutomatedOrdered By: Timothy Presley on 11-18-2023 Bacteria Auto Ql (U) None seen [HPF] None Seen [facility] Bilirubin Test strip Ql (U)O rdered By: Timothy Presley on 11-18-2023 Bilirubin Ql (U) Negative Negative [facility] Calcium [Mass/volume] in Ser um or PlasmaOrdered By: Timothy Presley on 11-18-2023 Calcium [Mass/Vol] 9.4 mg/dL Normal 8.6-10.3 [facility] Comment on above: Order Comment: Reaso n for Exam Chronic kidney disease, stage III (moderate);Type 2 diabetes Performed By: #### G LULS #### Point of Care testing , Carbon dioxide, total [Moles /volume] in Serum or PlasmaOrdered By: Timothy Presley on 11-18-2023 CO2 [Moles/Vol] 26.2 mmol/L Normal 21.0-31.0 [facility] Comment on above: Order Comment: Reaso n for Exam Chronic kidney disease, stage III (moderate);Type 2 diabetes Performed By: #### G LULS #### Point of Care testing , Casts [Presence] in Urine by AutomatedOrdered By: Timothy Presley on 11-18-2023 Casts Auto Ql (U) 5-9 [LPF] High None Seen [facility] Chloride [Moles/volume] in S martin or PlasmaOrdered By: Timothy Presley on 11-18-2023 Chloride [Moles/Vol] 105 mmol/L Normal 98-107 [facility] Comment on above: Order Comment: Reaso n for Exam Chronic kidney disease, stage III (moderate);Type 2 diabetes Performed By: #### G LULS #### Point of Care testing , Color of Urine by AutoOrdere d By: Timothy Presley on 11-18-2023 Color (U) Light-yellow Normal Yellow [facility] Comment on above: Order Comment: Tara n for Exam Chronic kidney disease, stage III (moderate);Type 2 diabetes Name Collection Type:: Clean-Voided Midstream Performed By: #### G LULS #### Point of Care testing , Creatinine [Mass/volume] in Serum or PlasmaOrdered By: Timothy Presley on 11-18-2023 Creatinine [Mass/Vol] 1.18 mg/dL Normal 0.60-1.20 [facility] Comment on above: Order Comment: Shantao n for Exam Chronic kidney disease, stage III (moderate);Type 2 diabetes Performed By: #### G LULS #### Point of Care testing , Creatinine [Mass/volume] in UrineOrdered By: Timothy Presley on 11-18-2023 Creatinine (U) [Mass/Vol] 112.00 mg/dL [facility] Comment on above: No reference range e stablished Dipstick and Microscopicon 0 11-18-2023 Bacteria,Urine None Seen Normal None Seen [facility] Comment on above: Order Comment: Tara n for Exam Chronic kidney disease, stage III (moderate);Type 2 diabetes Name Collection Type:: Clean-Voided Midstream Performed By: #### G LULS #### Point of Care testing , Bilirubin,Urine Negative Normal Negative [facility] Comment on above: Order Comment: Tara n for Exam Chronic kidney disease, stage III (moderate);Type 2 diabetes Name Collection Type:: Clean-Voided Midstream Performed By: #### G LULS #### Point of Care testing , Glucose Ql (U) Normal Normal Normal [facility] Comment on above: Order Comment: Tara n for Exam Chronic kidney disease, stage III (moderate);Type 2 diabetes Name Collection Type:: Clean-Voided Midstream Performed By: #### G LULS #### Point of Care testing , Hyaline Casts,Urine 9-19 High 0-8 [facility] Comment on above: Order Comment: Shantao n for Exam Chronic kidney disease, stage III (moderate);Type 2 diabetes Name Collection Type:: Clean-Voided Midstream Performed By: #### G LULS #### Point of Care testing , Mucus,Urine Rare Normal [facility] Comment on above: Order Comment: Shantao n for Exam Chronic kidney disease, stage III (moderate);Type 2 diabetes Name Collection Type:: Clean-Voided Midstream Result Comment: PERF ORMED BY: [facility] [place] [address] PATHOLOGIST [employer] TECHNICAL ASSISTANT ARIEL DILL M.D. Performed By: #### G LULS #### Point of Care testing , Nitrite,Urine Negative Normal Negative [facility] Comment on above: Order Comment: Shantao n for Exam Chronic kidney disease, stage III (moderate);Type 2 diabetes Name Collection Type:: Clean-Voided Midstream Performed By: #### G LULS #### Point of Care testing , Occult Blood,Urine Negative Normal Negative [facility] Comment on above: Order Comment: Shantao n for Exam Chronic kidney disease, stage III (moderate);Type 2 diabetes Name Collection Type:: Clean-Voided Midstream Performed By: #### G LULS #### Point of Care testing , Other Casts,Urine 5-9 High None Seen [facility] Comment on above: Order Comment: Shantao n for Exam Chronic kidney disease, stage III (moderate);Type 2 diabetes Name Collection Type:: Clean-Voided Midstream Performed By: #### G LULS #### Point of Care testing , Protein,Urine Negative Normal Negative [facility] Comment on above: Order Comment: Shantao n for Exam Chronic kidney disease, stage III (moderate);Type 2 diabetes Name Collection Type:: Clean-Voided Midstream Performed By: #### G LULS #### Point of Care testing , RBC,Urine 1-2 Normal 0-4 [facility] Comment on above: Order Comment: Shantao n for Exam Chronic kidney disease, stage III (moderate);Type 2 diabetes Name Collection Type:: Clean-Voided Midstream Performed By: #### G LULS #### Point of Care testing , Specificy Arma,Urine 1.013 Normal 1.001-1.030 [facility] Comment on above: Order Comment: Reaso n for Exam Chronic kidney disease, stage III (moderate);Type 2 diabetes Name Collection Type:: Clean-Voided Midstream Performed By: #### G LULS #### Point of Care testing , Squamous Epithelial Cell,Urine 3-4 High 0-2 [facility] Comment on above: Order Comment: Reaso n for Exam Chronic kidney disease, stage III (moderate);Type 2 diabetes Name Collection Type:: Clean-Voided Midstream Performed By: #### G LULS #### Point of Care testing , Urobilinogen,Urine Normal Normal Normal [facility] Comment on above: Order Comment: Reaso n for Exam Chronic kidney disease, stage III (moderate);Type 2 diabetes Name Collection Type:: Clean-Voided Midstream Performed By: #### G LULS #### Point of Care testing , WBC,Urine 3-4 Normal 0-4 [facility] Comment on above: Order Comment: Reaso n for Exam Chronic kidney disease, stage III (moderate);Type 2 diabetes Name Collection Type:: Clean-Voided Midstream Performed By: #### G LULS #### Point of Care testing , Epithelial cells.squamous [# /area] in Urine sediment by Automated countOrdered By: Timothy Sonr on 11-18-2023 Epithelial cells.squamous Auto (Urine sed) [#/Area] 3-4 [HPF] High 0-2 [facility] Erythrocyte distribution wid th [Ratio] by Automated countOrdered By: Timothy Sonr on 11-18-2023 Erythrocyte distribution width (RBC) [Ratio] 13.2 % Normal 11.9-15.3 [facility] Comment on above: Order Comment: Reaso n for Exam Chronic kidney disease, stage III (moderate);Type 2 diabetes Performed By: #### C BCNO #### [address] Erythrocytes [#/area] in Uri ne sediment by Automated countOrdered By: Timothy Chidi on 11-18-2023 RBC Auto (Urine sed) [#/Area] 1-2 [HPF] 0-4 [facility] Erythrocytes [#/volume] in B lood by Automated countOrdered By: Timothy Presley on 11-18-2023 RBC (Bld) [#/Vol] 4.16 10*6/uL Normal 3.60-5.00 [facility] Comment on above: Order Comment: Tara n for Exam Chronic kidney disease, stage III (moderate);Type 2 diabetes Performed By: #### C BCNO #### [facility] [address] Glucose [Mass/volume] in Ser um or PlasmaOrdered By: Timothy Presley on 11-18-2023 Glucose [Mass/Vol] 197 mg/dL High 70-100 [facility] Comment on above: ADA recommended refe rence rangeRandom Glucose Reference Range is dependent on time and content of last meal. Glucose of more than 200 mg/dL in a nonstressed, ambulatory subject supports the diagnosis of Diabetes Mellitus. Order Comment: Tara n for Exam Chronic kidney disease, stage III (moderate);Type 2 diabetes Result Comment: Maxwell om Glucose Reference Range is dependent on time and content of last meal. Glucose of more than 200 mg/dL in a nonstressed, ambulatory subject supports the diagnosis of Diabetes Mellitus. ADA recommended reference range Performed By: #### G LULS #### Point of Care testing , Glucose [Mass/volume] in Uri ne by Test stripOrdered By: Timothy Presley on 11-18-2023 Glucose Test strip (U) [Mass/Vol] Normal mg/dL Normal [facility] Hematocrit [Volume Fraction] of Blood by Automated countOrdered By: Timothy Presley on 11-18-2023 Hematocrit (Bld) [Volume fraction] 37.2 % Normal 34.0-46.4 [facility] Comment on above: Order Comment: Tara n for Exam Chronic kidney disease, stage III (moderate);Type 2 diabetes Performed By: #### C BCNO #### [facility] [address] Hemoglobin Test strip Ql (U) Ordered By: Timothy Presley on 11-18-2023 Hemoglobin Ql (U) Negative Negative [facility] Hemoglobin [Mass/volume] in BloodOrdered By: Timothy Presley on 11-18-2023 Hemoglobin (Bld) [Mass/Vol] 12.5 g/dL Normal 11.8-15.4 [facility] Comment on above: Order Comment: Reaso n for Exam Chronic kidney disease, stage III (moderate);Type 2 diabetes Performed By: #### C BCNO #### [facility] [address] [place] [address] Hemogram CBC Without Diffon 11-18-2023 Mean Corpuscular HGB Conc 33.6 g/dL Normal 32.0-35.0 [facility] Comment on above: Order Comment: Reaso n for Exam Chronic kidney disease, stage III (moderate);Type 2 diabetes Performed By: #### C BCNO #### [facility] [address] [place] [address] WBC (Bld) [#/Vol] 5.6 10*3/uL Normal 3.8-11.6 [facility] Comment on above: Order Comment: Reaso n for Exam Chronic kidney disease, stage III (moderate);Type 2 diabetes Performed By: #### C BCNO #### [facility] [address] [place] [address] Hyaline casts [#/area] in Ur ine sediment by Automated countOrdered By: Timothy Presley on 11-18-2023 Hyaline casts Auto (Urine sed) [#/Area] 9-19 [LPF] High 0-8 [facility] Ketones [Presence] in Urine by Test stripOrdered By: Timothy Presley on 11-18-2023 Ketones Ql (U) Negative Normal Negative [facility] Comment on above: Order Comment: Reaso n for Exam Chronic kidney disease, stage III (moderate);Type 2 diabetes Name Collection Type:: Clean-Voided Midstream Performed By: #### G LULS #### Point of Care testing , Leukocyte esterase [Presence ] in Urine by Test stripOrdered By: Timothy Presley on 11-18-2023 Leukocyte esterase Test strip Ql (U) 2+ High Negative [facility] Comment on above: Order Comment: Reaso n for Exam Chronic kidney disease, stage III (moderate);Type 2 diabetes Name Collection Type:: Clean-Voided Midstream Performed By: #### G STEFANI #### Point of Care testing , Leukocytes [#/area] in Urine sediment by Automated countOrdered By: Timothy Presley on 11-18-2023 WBC Auto (Urine sed) [#/Area] 3-4 [HPF] 0-4 [facility] Leukocytes [#/volume] correc annel for nucleated erythrocytes in Blood by Automated counOrdered By: Timothy Presley on 11-18-2023 WBC corrected for nucl RBC Auto (Bld) [#/Vol] 5.6 10*3/uL 3.8-11.6 [facility] MCH [Entitic mass] by Automa annel countOrdered By: Timothy Presley on 11-18-2023 MCH (RBC) [Entitic mass] 30.0 pg Normal 24.7-34.3 [facility] Comment on above: Order Comment: Reaso n for Exam Chronic kidney disease, stage III (moderate);Type 2 diabetes Performed By: #### C BCNO #### [facility] [address] MCHC Auto (RBC) [Mass/Vol]Or dered By: Timothy Presley on 11-18-2023 MCHC (RBC) [Mass/Vol] 33.6 g/dL 32.0-35.0 [facility] MCV [Entitic volume] by Auto mated countOrdered By: Timothy Presley on 11-18-2023 MCV (RBC) [Entitic vol] 89.3 fL Normal 80-100 [facility] Comment on above: Order Comment: Reaso n for Exam Chronic kidney disease, stage III (moderate);Type 2 diabetes Performed By: #### C BCNO #### [facility] [address] [place] [address] [place] Magnesium [Mass/volume] in S martin or PlasmaOrdered By: Timothy Presley on 11-18-2023 Magnesium [Mass/Vol] 1.8 mg/dL Low 1.9-2.7 [facility] Comment on above: Order Comment: Reaso n for Exam Chronic kidney disease, stage III (moderate);Type 2 diabetes Performed By: #### G LULS #### Point of Care testing , Mucus [Presence] in Urine by AutomatedOrdered By: Timothy Presley on 11-18-2023 Mucus Auto Ql (U) Rare [LPF] [facility] Nitrite Test strip Ql (U)Ord ered By: Timothy Presley on 11-18-2023 Nitrite Ql (U) Negative Negative [facility] No Panel InformationOrdered By: Timothy Presley on 11-18-2023 Estimated GFR (CKD-EPI) 49.689 mL/Min [facility] Creatinine Clearance (Chem N/A [facility] Parathyrin.intact [Mass/volu me] in Serum or PlasmaOrdered By: Timothy Presley on 11-18-2023 Parathyrin.intact [Mass/Vol] 115.7 pg/mL High 12 [facility] Parathyroid Hormone Intacton 11-18-2023 Parathyroid Hormone Intact 115.7 pg/mL High [facility] Comment on above: Order Comment: Reaso n for Exam Chronic kidney disease, stage III (moderate);Type 2 diabetes Result Comment: PERF ORMED BY: [place] [address] PATHOLOGIST [employer]ARY TECHNICAL ASSISTANT ARIEL DILL M.D. Performed By: #### P TH #### [address] Phosphate [Mass/volume] in S martin or PlasmaOrdered By: Timothy Presley on 11-18-2023 Phosphate [Mass/Vol] 3.1 mg/dL Normal 2.5-4.5 [facility] Comment on above: Order Comment: Reaso n for Exam Chronic kidney disease, stage III (moderate);Type 2 diabetes Performed By: #### G LULS #### Point of Care testing , Platelet mean volume [Entiti c volume] in Blood by Automated countOrdered By: Timothy Presley on 11-18-2023 Platelet mean volume (Bld) [Entitic vol] 9.2 fL Normal 6.3-10.7 [facility] Comment on above: Order Comment: Reaso n for Exam Chronic kidney disease, stage III (moderate);Type 2 diabetes Result Comment: PERF ORMED BY: [place] [address] PATHOLOGIST [employer] TECHNICAL ASSISTANT ARIEL DILL M.D. Performed By: #### C BCNO #### [facility] [address] [place] [address] [place] Platelets [#/volume] in Bloo d by Automated countOrdered By: Timothy Presley on 11-18-2023 Platelets (Bld) [#/Vol] 184 10*3/uL Normal 150-450 [facility] Comment on above: Order Comment: Reaso n for Exam Chronic kidney disease, stage III (moderate);Type 2 diabetes Performed By: #### C BCNO #### [facility] [address] [place], [place] [id number] [place] Potassium [Moles/volume] in Serum or PlasmaOrdered By: Timothy Presley on 11-18-2023 Potassium [Moles/Vol] 4.4 mmol/L Normal 3.5-5.1 [facility] Comment on above: Order Comment: Reaso n for Exam Chronic kidney disease, stage III (moderate);Type 2 diabetes Performed By: #### G LULS #### Point of Care testing , Protein Creat Ratio Ur Rando mon 11-18-2023 Creatinine, Urine (Random) 112.00 mg/dL Normal [facility] Comment on above: Order Comment: Reaso n for Exam Chronic kidney disease, stage III (moderate);Type 2 diabetes Result Comment: No r eference range established Performed By: #### P ROCRERAT #### [facility] [address] [place] [address] [place] Urine Protein/Creatinine Ratio 116 mg/g{Cre} Normal 0-200 [facility] Comment on above: Order Comment: Reaso n for Exam Chronic kidney disease, stage III (moderate);Type 2 diabetes Result Comment: PERF ORMED BY: [place] [address] PATHOLOGIST [employer] TECHNICAL ASSISTANT ARIEL DILL M.D. Performed By: #### P ROCRERAT #### [facility] [address] Protein Test strip (U) [Mass /Vol]Ordered By: Timothy Presley on 11-18-2023 Protein (U) [Mass/Vol] Negative Negative [facility] Protein [Mass/volume] in Uri neOrdered By: Timothy Romerodir on 11-18-2023 Protein (U) [Mass/Vol] 13 mg/dL High 0-9 [facility] Comment on above: Order Comment: Reaso n for Exam Chronic kidney disease, stage III (moderate);Type 2 diabetes Performed By: #### P ROCRERAT #### [facility] [address] Renal Function Panelon 11-17 Albumin [Mass/Vol] 3.8 g/dL Normal 3.5-5.7 [facility] Comment on above: Order Comment: Reaso n for Exam Chronic kidney disease, stage III (moderate);Type 2 diabetes Performed By: #### G LULS #### Point of Care testing , GFR/1.73 sq M.predicted MDRD (S/P/Bld) [Vol rate/Area] 49.689 mL/min/{1.73_m2} Normal [facility] Comment on above: Order Comment: Reaso n for Exam Chronic kidney disease, stage III (moderate);Type 2 diabetes Performed By: #### G LULS #### Point of Care testing , Serum or plasma anion gap de terminationOrdered By: Timothy Presley on 11-18-2023 Anion gap [Moles/Vol] 10.2 mmol/L Normal 6.0-15.0 [facility] Comment on above: Order Comment: Reaso n for Exam Chronic kidney disease, stage III (moderate);Type 2 diabetes Performed By: #### G LULS #### Point of Care testing , Sodium [Moles/volume] in Ser um or PlasmaOrdered By: Timothy Chidi on 11-18-2023 Sodium [Moles/Vol] 137 mmol/L Normal 136-145 [facility] Comment on above: Order Comment: Reaso n for Exam Chronic kidney disease, stage III (moderate);Type 2 diabetes Performed By: #### G LULS #### Point of Care testing , Specific gravity Test strip (U) [Rel density]Ordered By: Timothy Presley on 11-18-2023 Specific gravity (U) [Rel density] 1.013 1.001-1.030 [facility] Urate [Mass/volume] in Serum or PlasmaOrdered By: Timothy Sonr on 11-18-2023 Urate [Mass/Vol] 6.2 mg/dL Normal 2.3-6.6 [facility] Comment on above: Order Comment: Reaso n for Exam Chronic kidney disease, stage III (moderate);Type 2 diabetes Performed By: #### G LULS #### Point of Care testing , Urea nitrogen [Mass/volume] in Serum or PlasmaOrdered By: Timothy Sonr on 11-18-2023 Urea nitrogen [Mass/Vol] 18 mg/dL Normal 7-25 [facility] Comment on above: Order Comment: Reaso n for Exam Chronic kidney disease, stage III (moderate);Type 2 diabetes Performed By: #### G LULS #### Point of Care testing , Urine appearanceOrdered By: Timothy Presley on 11-18-2023 Appearance (U) Clear Normal Clear [facility] Comment on above: Order Comment: Reaso n for Exam Chronic kidney disease, stage III (moderate);Type 2 diabetes Name Collection Type:: Clean-Voided Midstream Performed By: #### G LULS #### Point of Care testing , Urine protein/creatinine rat ioOrdered By: Timothy Presley on 11-18-2023 Protein/Creatinine (U) [Ratio] 116 mg/g{Cre} 0-200 [facility] Urobilinogen Test strip (U) [Mass/Vol]Ordered By: Timothy Presley on 11-18-2023 Urobilinogen (U) [Mass/Vol] Normal mg/dL Normal [facility] Vitamin D 25 Hydroxy Totalon 11-18-2023 Vitamin D 25 Hydroxy Total 55.8 ng/mL Normal 30-100 [facility] Group Comment on above: Order Comment: Reaso n for Exam Chronic kidney disease, stage III (moderate);Type 2 diabetes Result Comment: AMAYA MIN D STATUS 25([place])VITAMIN D RANGE (ng/mL) Deficient <20 Insufficient 20 to <30 Sufficient 30 to 100 Reference: Pedro Luis Kim, Alicia MONTIEL, et al. Evaluation,treatment, and prevention of vitamin D deficiency; an Endocrine Society clinical practice guideline. JCEM. 2010; 96(7):1911-30. PERFORMED BY: [facility] [place] [address] PATHOLOGIST BINDERY LIBRARY TECHNICAL ASSISTANT ARIEL DILL M.D. Performed By: #### G LULS #### Point of Care testing , Vitamin D+Metabolites [Mass/ volume] in Serum or PlasmaOrdered By: Timothy Presley on 11-18-2023 Vitamin D+Metabolites [Mass/Vol] 55.8 ng/mL 30-100 [facility] Comment on above: VITAMIN D STATUS 25( [place])VITAMIN D RANGE (ng/mL) Deficient <20 Insufficient 20 to <30Sufficient 30 to 100Reference: Yonathan LI,Pedro Luis MCKENNA, Alicia MONTIEL, et al. Evaluation,treatment, and prevention of vitamin D deficiency; an Endocrine Society clinical practice guideline. JCEM. 2010; 96(7):1911-30. pH of Urine by Test stripOrd ered By: Timothy Presley on 11-18-2023 pH (U) 6.0 [pH] Normal 5.0-9.0 [facility] Comment on above: Order Comment: Reaso n for Exam Chronic kidney disease, stage III (moderate);Type 2 diabetes Name Collection Type:: Clean-Voided Midstream Performed By: #### G LULS #### Point of Care testing , Family Medicine Office/Clini c Noteon 10-05-2023 Family Medicine Office/Clinic Note Family Medicine Office/Clinic Note Chief Complaint Patient presents today requesting a referral for a sleep study HPI Staff Patient presents today requesting a sleep study for sleep apnea Patient states she wakes up frequently through the night and granddaughter states she snores frequently through the night. History of Present Illness I have reviewed staff HPI and it is correct. Sabina Canela is a 72-year-old female here to discuss possible sleep study. The patient sought medical attention yesterday on 10/01/2023, during which she was advised to consult the doctor regarding sleep apnea. She has not observed any episodes of apnea, choking, or gasping during sleep. She does not experience nocturnal dyspnea. The only nocturnal awakenings are to go to bathroom. She is interested in intervention for sleep apnea. Her step-granddaughter has observed her snoring loudly, and she occasionally experiences daytime fatigue and sleepiness. The patient's blood glucose levels have been satisfactory. The patient expresses concern about potential causes of leg cramps. She inquires about drinking Powerade Zero. The patient reports pain in her right thumb. Brace and ice are not helpful. She has not undergone an x-ray of her hand. Her brother has sleep apnea. STOPBANG (sleep apnea screening) Snoring (do you snore loudly):YES Tiredness (Do you often feel tired, fatigued, or sleepy during the daytime):YES Observed Apnea (Has anyone observed you stop breathing, choke or gasp during your sleep):No High Blood Pressure (Do you have or are you being treated for high blood pressure):YES BMI (Is your BMI more that 35kg/meter squared):No Age (are you older than 50):YES Neck Circumference (Is your neck circumference greater that 40cm [15.75in]:No 14.25 in Gender (are you male):No Score:INTERMEDIATE 0-2 Low 3-5 intermediate >5 High Patient has no other questions or concerns at this time. Review of Systems All negative except as noted in the HPI. Physical Exam Vitals & Measurements T: 36.6 ?C(Temporal Artery) HR: 63(Peripheral) RR: 18 BP: 126/82 SpO2: 99% HT: 65 in HT: 165 cm WT: 90.1 kg WT: 198.22 lb BMI: 33.09 General: Obese female, well hydrated, in no acute distress. Lungs: Normal respiratory effort and clear to auscultation Cardio: Regular rate and rhythm, normal S1 and S2, no murmur, no rub Extremities: There is tenderness to palpation over the right metatarsal of the thumb. The patient is currently wearing a brace during appointment and does have difficulty with range of motion regarding the right thumb. No palmar tenderness and negative Tinel's sign. Neurologic: Grossly normal Lymph Nodes: No cervical adenopathy, nodes normal Mental Status: Alert and oriented x3. Normal mood and affect Assessment/Plan 1. Sleep apnea, unspecified (G47.30: Sleep apnea, unspecified) Order placed for sleep study. Did discuss with the patient possibility of home study as well. The patient verbalized understanding. She will be contacted by the sleep study clinic to schedule her appointment. 2. Loud snoring (R06.83: Snoring) See #1. 3. Leg cramps (R25.2: Cramp and spasm) Discussed electrolyte imbalance is the most common cause. Encouraged adequate hydration and Powerade Zero, Gatorade Zero, or similar electrolyte beverage regularly. Encouraged use of BenGay or Icy Hot to gently massage the lower extremities. 4. Pain of right thumb (M79.644: Pain in right finger(s)) X-ray of the right hand ordered. The patient will be contacted with the results regarding the next steps. 5. BMI 33.0-33.9,adult (Z68.33: Body mass index [BMI] 33.0-33.9, adult) The standard range for ages 18 and older is >=18.5 and < 25 kg/m2. Your BMI today was above this range, this falls in the overweight to obese category and there are medical benefits to weight loss. We can offer counselling, referral, and/or medical support in addressing this problem. Your BMI and weight management will be followed at subsequent visits. 6. Class 1 obesity due to excess calories in adult (E66.09: Other obesity due to excess calories) See above. Patient verbalized understanding and is agreeable to plan and course of treatment. This documentation was completed by voice-activated device and software. Inaccuracies compared to the original dictation of this provider are possible although this document has been overread and corrected. Portions of this record may have been created with voice recognition artificial intelligence software, specifically [employer], [employer] and or [employer]. Substitutions may have occurred due to the inherent limitations of voice recognition and artificial intelligence software. ATTESTATION: This note has been generated by [employer] and edited by Azael Banda, Quality Community Development Officer. Follow-up With When Contact Information Marvin Husain PA-C [address] [place] [address]- [phone] Ad (more content not included)... [facility] Comment on above: Result Comment: Elec tronically Signed By: Marvin Husain PA-C\.br\Date and Time Signed: 10/05/23 05:20 EDT\.br\Electronically Co-Signed By: Casandra Fernandez\.br\Date and Time Co-Signed: 10/02/23 10:23 EDT Ambulatory Visit Summaryon 0 10-02-2023 Ambulatory Visit Summary Ambulatory Visit Summary SABINA CANELA :1950 Visit Date:10/02/2023 Ambulatory Visit Instructions Your Diagnosis Sleep apnea, unspecified Loud snoring Leg cramps Pain of right thumb BMI 33.0-33.9,adult Class 1 obesity due to excess calories in adult Your Care Team Attending Physician - Marvin Husain PA-C Primary Care Physician - Marvin Husain PA-C This Is Your Medications List Misc Prescription (32 gauge pen needle 4 mm) Misc Prescription (Alcohol swabs, Kinde, band-aids) Misc Prescription (Glucometer) Misc Prescription (Lancet #100) Misc Prescription (Test Strips) amlodipine (amLODIPine 5 mg Tab) atorvastatin (Lipitor 40 mg Tab) celecoxib (CeleBREX 100 mg Cap) ergocalciferol (ergocalciferol 50,000 intl units Cap) folic acid (folic acid 1 mg Tab) glimepiride (glimepiride 4 mg Tab) insulin glargine (Basaglar KwikPen 100 units/mL subcutaneous solution) ketoconazole topical (ketoconazole Top 2% Crm) levothyroxine (levothyroxine 88 mcg (0.088 mg) Tab) magnesium citrate memantine (Namenda 10 mg oral tablet) mirabegron (Myrbetriq 50 mg oral tablet, extended release) nystatin topical (nystatin Top 100,000 units/g Pwdr) ondansetron (Zofran 4 mg Tab) propranolol (propranolol 120 mg Cap-ER) ropinirole (Requip 0.25 mg Tab) semaglutide (Rybelsus 7 mg oral tablet) trazodone (traZODONE 50 mg Tab) triamcinolone topical (triamcinolone Top 0.025% Crm) Procedures Performed Tubal ligation. Discharge Vitals Temperature (Temporal Artery) 36.6 ?C Heart Rate (Peripheral) 63 Respiratory Rate 18 Blood Pressure 126/82 Height 165 cm Height 65 in Weight 90.1 kg Weight 198.22 lb BMI 33.09 What to do next Scheduled Follow-Up Appointments Thursday 11:00 AM EDT With: Marvin Husain PA-C Where: [facility] [place] [address] [place] [address]- \.br\ You Need to Schedule the Following Appointments\.b r\ Follow Up with Marvin Husain PA-C When: \.br\ Comments:\.br\ Appointment has already been scheduled\.br\ Where:\.br\ [address]\ [place] [address]-\.br\ [phone]\.br\ You Need to Complete the Following\.br\ XR Hand 3+ Views Right, 10/02/23, Routine, Order for future visit, Transport Mode: Wheelchair, Reason: Pain, Non Traumatic, No, Pain of right thumb, pp_set_radiolog y_subspecialty, [facility]\.br\ Medications\.br \ What How Much When Why Instructions\.b r\ Unchanged amlodipine (amLODIPine 5 mg Tab) 1 Tablets By Mouth Every day\.br\ Unchanged atorvastatin (Lipitor 40 mg Tab) 1 Tablets By Mouth Every day\.br\ Unchanged celecoxib (CeleBREX 100 mg Cap) 1 Capsules By Mouth Every day\.br\ Unchanged ergocalciferol (ergocalciferol 50,000 intl units Cap) 1 Capsules By Mouth Every week\.br\ Unchanged folic acid (folic acid 1 mg Tab) 1 Tablets By Mouth Every day\.br\ Unchanged glimepiride (glimepiride 4 mg Tab) 1 Tablets By Mouth Every day\.br\ Unchanged insulin glargine (Basaglar KwikPen 100 units/ mL subcutaneous solution) See instructions 30 units SUBQ every morning with food 20 units SUBQ every evening rotate injection sites \.br\ Unchanged ketoconazole topical (ketoconazole Top 2% Crm) 1 Application Topical Every day\.br\ Unchanged levothyroxine (levothyroxine 88 mcg (0.088 mg) Tab) 1 Tablets By Mouth Every day take 1 tablet by mouth every morning ON AN EMPTY STOMACH \.br\ Unchanged magnesium citrate\.br\ Unchanged memantine (Namenda 10 mg oral tablet) 1 Tablets By Mouth 2 times a day\.br\ Unchanged mirabegron (Myrbetriq 50 mg oral tablet, extended release) 1 Tablets By Mouth Every day\.br\ Unchanged Misc Prescription (32 gauge pen needle 4 mm) See instructions Use to administer basaglar BID \.br\ Unchanged Misc Prescription (Alcohol swabs, Jose F, band-aids) 0 Type 2 diabetes mellitus with hyperglycemia Duration: 30 Days Diabetic supply for a month with 2 refills \.br\ Unchanged Misc Prescription (Glucometer) 0 Type 2 diabetes mellitus with hyperglycemia\. br\ Unchanged Misc Prescription (Lancet #100) 0 Type 2 diabetes mellitus with hyperglycemia Diagnoses diabetes. 3 month supplies \.br\ Unchanged Misc Prescription (Test Strips) See instructions To be used to check blood sugars BID and as needed. Dx: E11.9 \.br\ Unchanged nystatin topical (nystatin Top 100,000 units/ g Pwdr) 1 Application Topical 2 times a day\.br\ Unchanged ondansetron (Zofran 4 mg Tab) 1 Tablets By Mouth Every 8 hours as needed for Nausea/Vomiting \.br\ Unchanged propranolol (propranolol 120 mg Cap-ER) 1 Capsules By Mouth Every day\.br\ Unchanged ropinirole (Requip 0.25 mg Tab) 1 Tablets By Mouth Every day\.br\ Unchanged semaglutide (Rybelsus 7 mg oral tablet) 1 Tablets By Mouth Every day take at least 30 minutes before first food, beverage, or other oral meds \.br\ Unchanged trazodone (traZODONE 50 mg Tab) 1 Tablets By Mouth Once a day (at bedtime) take 1 tablet by mouth nightly \.br\ Unchanged triamcinolone topical (triamcinolone Top 0.025% Crm) See instructions apply 1-2 times a day \.br\ Allergies\.br\ amoxicillin (Anaphylaxis)\. br\ Problems\.br\ Ongoing - Any problem that you are currently receiving treatment for.\.br\ Anxiety\.br\ BMI 33.0-33.9,adult \.br\ BMI 34.0-34.9,adult \.br\ BMI 37.0-37.9, adult\.br\ Class 1 obesity due to excess calories in adult\.br\ Effusion of bursa of left knee\.br\ Former smoker\.br\ Hypercholestero lemia\.br\ Hypothyroid\.br \ Long-term insulin use\.br\ Morbid obesity\.br\ Polyuria\.br\ Primary hypertension\.b r\ Stage 3a chronic kidney disease (CKD)\.br\ Thumb tendonitis\.br\ Type 2 diabetes mellitus with hypercholestero lemia\.br\ Type 2 diabetes mellitus with hyperglycemia\. br\ Type 2 diabetes mellitus with stage 3a chronic kidney disease\.br\ Urgency incontinence\.b r\ Historical - Any problem that you are no longer receiving treatment for.\.br\ Diabetes\.br\ Smoker\.br\ Patient Survey\.br\ You may receive a survey via text or e-mail asking about your office visit. Please share your experience with us by completing your survey. We appreciate your feedback and thank you for choosing us for your care.\.br\ \.br\ [facility] XR Hand 3+ Views Righton XR Hand 3+ Views Right Exam Date/Time: 10/02/2023 09:34 EDT Reason for Exam: Pain, Non Traumatic Report IMPRESSION: NO ACUTE OSSEOUS ABNORMALITY. EXAMINATION: XR Hand 3+ Views Right HISTORY: Hand pain COMPARISONS: None available TECHNIQUE: AP, lateral and oblique views of the hand obtained. FINDINGS: No acute fracture or dislocation. Mild degenerative changes at the triscaphe joint and first carpometacarpal joint. Soft tissues are within normal limits. Ordering Provider: Marvin Husain FINAL REPORT Dictated: 10/02/2023 1:41 pm Albino Carlos DO Signed (Electronic Signature): 10/02/2023 1:41 pm Signed by: Albino Carlos DO Transcribed by: CHAGO Technologist: KAREN Technical Comments Radiation Dose: margot Gutierrez in mGy = . DAP = . Normal [facility] Ambulatory Visit Summaryon 0 09-22-2023 Ambulatory Visit Summary SABINA CANELA :1950 Visit Date:09/22/2023 Ambulatory Visit Instructions Your Diagnosis BMI 33.0-33.9,adult Class 1 obesity due to excess calories in adult Your Care Team Attending Physician - Martha Tony DO Primary Care Physician - Marvin Husain PA-C This Is Your Medications List Misc Prescription (32 gauge pen needle 4 mm) Misc Prescription (Alcohol swabs, Jose F, band-aids) Misc Prescription (Glucometer) Misc Prescription (Lancet #100) Misc Prescription (Test Strips) amlodipine (amLODIPine 5 mg Tab) atorvastatin (Lipitor 40 mg Tab) celecoxib (CeleBREX 100 mg Cap) ergocalciferol (ergocalciferol 50,000 intl units Cap) folic acid (folic acid 1 mg Tab) glimepiride (glimepiride 4 mg Tab) insulin glargine (Basaglar KwikPen 100 units/mL subcutaneous solution) ketoconazole topical (ketoconazole Top 2% Crm) levothyroxine (levothyroxine 88 mcg (0.088 mg) Tab) magnesium citrate memantine (Namenda 10 mg oral tablet) mirabegron (Myrbetriq 50 mg oral tablet, extended release) nystatin topical (nystatin Top 100,000 units/g Pwdr) ondansetron (Zofran 4 mg Tab) propranolol (propranolol 120 mg Cap-ER) ropinirole (Requip 0.25 mg Tab) semaglutide (Rybelsus 7 mg oral tablet) trazodone (traZODONE 50 mg Tab) triamcinolone topical (triamcinolone Top 0.025% Crm) Procedures Performed Tubal ligation. Discharge Vitals Temperature (Oral) 36.6 ?C Heart Rate (Peripheral) 80 Respiratory Rate 18 Blood Pressure 128/88 Height 165 cm Height 65 in Weight 92 kg Weight 202.4 lb BMI 33.79 What to do next Scheduled Follow-Up Appointments Thursday 11:00 AM EDT With: Marvin Husain PA-C Where: [facility] [place] [facility] [address] [place] [address]- \.br\ Medications\.br \ What How Much When Why Instructions\.b r\ New celecoxib (CeleBREX 100 mg Cap) 1 Capsules By Mouth Every day [id number]\.br\ Unchanged amlodipine (amLODIPine 5 mg Tab) 1 Tablets By Mouth Every day\.br\ Unchanged atorvastatin (Lipitor 40 mg Tab) 1 Tablets By Mouth Every day\.br\ Unchanged ergocalciferol (ergocalciferol 50,000 intl units Cap) 1 Capsules By Mouth Every week\.br\ Unchanged folic acid (folic acid 1 mg Tab) 1 Tablets By Mouth Every day\.br\ Unchanged glimepiride (glimepiride 4 mg Tab) 1 Tablets By Mouth Every day\.br\ Unchanged insulin glargine (Basaglar KwikPen 100 units/ mL subcutaneous solution) See instructions 30 units SUBQ every morning with food 20 units SUBQ every evening rotate injection sites \.br\ Unchanged ketoconazole topical (ketoconazole Top 2% Crm) 1 Application Topical Every day\.br\ Unchanged levothyroxine (levothyroxine 88 mcg (0.088 mg) Tab) 1 Tablets By Mouth Every day take 1 tablet by mouth every morning ON AN EMPTY STOMACH \.br\ Unchanged magnesium citrate\.br\ Unchanged memantine (Namenda 10 mg oral tablet) 1 Tablets By Mouth 2 times a day\.br\ Unchanged mirabegron (Myrbetriq 50 mg oral tablet, extended release) 1 Tablets By Mouth Every day\.br\ Unchanged Misc Prescription (32 gauge pen needle 4 mm) See instructions Use to administer basaglar BID \.br\ Unchanged Misc Prescription (Alcohol swabs, Kinde, band-aids) 0 Type 2 diabetes mellitus with hyperglycemia Duration: 30 Days Diabetic supply for a month with 2 refills \.br\ Unchanged Misc Prescription (Glucometer) 0 Type 2 diabetes mellitus with hyperglycemia\. br\ Unchanged Misc Prescription (Lancet #100) 0 Type 2 diabetes mellitus with hyperglycemia Diagnoses diabetes. 3 month supplies \.br\ Unchanged Misc Prescription (Test Strips) See instructions To be used to check blood sugars BID and as needed. Dx: E11.9 \.br\ Unchanged nystatin topical (nystatin Top 100,000 units/ g Pwdr) 1 Application Topical 2 times a day\.br\ Unchanged ondansetron (Zofran 4 mg Tab) 1 Tablets By Mouth Every 8 hours as needed for Nausea/Vomiting \.br\ Unchanged propranolol (propranolol 120 mg Cap-ER) 1 Capsules By Mouth Every day\.br\ Unchanged ropinirole (Requip 0.25 mg Tab) 1 Tablets By Mouth Every day\.br\ Unchanged semaglutide (Rybelsus 7 mg oral tablet) 1 Tablets By Mouth Every day take at least 30 minutes before first food, beverage, or other oral meds \.br\ Unchanged trazodone (traZODONE 50 mg Tab) 1 Tablets By Mouth Once a day (at bedtime) take 1 tablet by mouth nightly \.br\ Unchanged triamcinolone topical (triamcinolone Top 0.025% Crm) See instructions apply 1-2 times a day \.br\ Pharmacy Information\.br \ [id number]: [address], [place] [phone]\.br\ Allergies\.br\ amoxicillin (Anaphylaxis)\. br\ Problems\.br\ Ongoing - Any problem that you are currently receiving treatment for.\.br\ Anxiety\.br\ BMI 33.0-33.9,adult \.br\ BMI 34.0-34.9,adult \.br\ BMI 37.0-37.9, adult\.br\ Class 1 obesity due to excess calories in adult\.br\ Former smoker\.br\ Hypercholestero lemia\.br\ Hypothyroid\.br \ Long-term insulin use\.br\ Morbid obesity\.br\ Primary hypertension\.b r\ Stage 3a chronic kidney disease (CKD)\.br\ Type 2 diabetes mellitus with hypercholestero lemia\.br\ Type 2 diabetes mellitus with hyperglycemia\. br\ Type 2 diabetes mellitus with stage 3a chronic kidney disease\.br\ Urgency incontinence\.b r\ Historical - Any problem that you are no longer receiving treatment for.\.br\ Diabetes\.br\ Smoker\.br\ Patient Survey\.br\ You may receive a survey via text or e-mail asking about your office visit. Please share your experience with us by completing your survey. We appreciate your feedback and thank you for choosing us for your care.\.br\ \.br\ [facility] Medicine Office/Clini c Noteon 09-22-2023 Family Medicine Office/Clinic Note Chief Complaint c/o bilateral leg pain x2 weeks HPI Staff C/O: Onset: Location: bilateral legs/ behind knees Symptoms: painful, pain shoots down with walking OTC: c/o on going thumb pain concerns of rybelsus side effect causing throat ca History of Present Illness Sabina Canela is a 72-year-old female who presents for evaluation of left knee pain and right thumb pain. She has concerns regarding her Rybelsus. Bilateral leg/knee pain The patient reports experiencing severe pain in the posterior aspect of her left knee, accompanied by leg pain. She has been actively trying to lose weight and is seeking advice on potential topical treatments. Right thumb pain The patient has been experiencing pain in her right thumb for an extended period. Despite the application of ice, she reports no relief. She denies engaging in strenuous activities such as weeding. She helps her son around the house by doing dishes and sweeping. Due to pain she has difficulty opening doors and getting out of cars. Diabetes The patient is currently on Rybelsus for her diabetes and is concerned of the risk of thyroid cancer. She has no history thyroid disease. Her dosage was recently increased to 7 mg. She reported inability to take Rybelsus yesterday due to severe foot cramps. She monitors her fasting blood glucose levels daily. She avoids sugar in her diet. She reports frequent urination. She denies any family history of thyroid cancer. Review of Systems PHQ Score Initial Depression Screen Score: 0 SCORE Physical Exam Vitals & Measurements T: 36.6 ?C(Oral) HR: 80(Peripheral) RR: 18 BP: 128/88 SpO2: 97% HT: 65 in HT: 165 cm WT: 92 kg WT: 202.4 lb BMI: 33.79 General: She has her original hair color and looks good. She is clean and well kept. Mental Status: The patient is alert and oriented x3. Musculoskeletal: The patient's left knee has a small bursa behind it, probably about golf ball size. It is palpable. She has a full range of motion of the knee. There is no erythema, no drainage and it is stable. She is wearing tennis shoes, but she has a cloth, so there is not great stability in the shoes too. In her right thumb, she does have crepitations over the tendon and a mild swelling and tenderness with movement consistent with tendinitis. Assessment/Plan 1. Class 1 obesity due to excess calories in adult (E66.09: Other obesity due to excess calories) Obesity recommend low fat, low carbo diet. 2000 calorie diet daily. Recommend two small meals and one average meal. Avoid eating after 6 pm. Avoid fast food, sugary drinks, artificial sugars, packaged instant food, candy , cakes and cookies . Shop for all natural food products. Exercise at least 3 days week. Avoid sedentary life style. Increase water intake. Do daily naked weights. Limit stressful life style. Check chol yearly. 2. Thumb tendonitis (M77.8: Other enthesopathies, not elsewhere classified) The patient has been advised to avoid repetitive motion. She may consider purchasing an [id number] soft brace. Celebrex should also alleviate her symptoms. 3. Effusion of bursa of left knee (M25.462: Effusion, left knee) We have decided to implement light stretches and supportive footwear, while avoiding strenuous or repetitive activities such as jogging. I have prescribed Celebrex 100 mg daily for the ensuing month, which should gradually resolve the bursa. Should the bursa increase in size or become worse, we will consult with orthopedics. 4. BMI 33.0-33.9,adult (Z68.33: Body mass index [BMI] 33.0-33.9, adult) see number one 5. Polyuria (R35.89: Other polyuria) related uncontrolled diabetics in past improved with blood sugar control Diabetes Mellitus. The patient will maintain her current dosage of Rybelsus, as her blood glucose levels have been consistently in the range of 80s - 140s. We have discussed the risk of thyroid cancer, despite her lack of family history or risk factors. Once her Trulicity is off of backorder, we will switch her back to the Trulicity. This could take up to 6 months. Recommend Gatorade G2 low sugar for electrolyte replenishment. I always recommend all adult vaccinations for patients. She can follow up with her regular appointment with her regular PCP. Portions of this record may have been created with voice recognition artificial intelligence software, specifically [employer], [employer] and or [employer]. Substitutions may have occurred due to the inherent limitations of voice recognition and artificial intelligence software. Documentation services were performed after patient or guardian consented to allow [employer] to record this visit. AMY blood bank specialist and provider reviewed before signing. AMY: NIKKI Garibay. Follow-up With When Contact Information Martha Tony DO, FAM In 3 months Additional Instructions: with pcp check diabeties and progress knee Problem List/Past (more content not included)... [facility] Comment on above: Result Comment: Elec tronically Signed By: Martha Tony DO\.br\Date and Time Signed: 09/22/23 12:56 EDT\.br\Electronically Co-Signed By: Urszula Gould\.br\Date and Time Co-Signed: 09/22/23 11:41 EDT Family Medicine Office/Clini c Noteon 09-17-2023 Family Medicine Office/Clinic Note Chief Complaint 1 month chronic care DM HPI Staff Patient is here for follow up on Diabetes. How often are you checking your blood sugars? 2 times per day What are your average readings? 100-200 Do you have low blood sugar readings/symptoms? Denies Do you have high blood sugar readings/symptoms? Denies Are you compliant with your diet? yes Do you exercise? no Are you compliant with your medications? Yes Having difficulty affording your medications? No Do you have any of the following symptoms? Vision problems? Denies GI-Nausea/committing/ bloating? Denies Lightheadedness? Denies Paresthesias, Ulcerations or sores? Denies c/o pain in R thumb x2 weeks, denies injury History of Present Illness I have reviewed staff HPI and it is correct. Sabina Canela is a 72-year-old female here for 1-month follow-up for diabetes. The patient's glycemic control has demonstrated improvement, as indicated by her fasting blood glucose level of 180 mg/dL this morning. She has been receiving guidance from a registered dietitian, Yenifer, and finds the interventions advantageous. Her current pharmacological regimen comprises of 30 units of insulin in the morning and 20 units at night, in addition to Rybelsus 3 mg, which she is tolerating well. She reports subjective improvement since initiating Rybelsus, although she still experiences residual fatigue. Despite maintaining adequate fluid intake, she continues to complain of xerostomia. She diligently monitors her blood glucose levels twice daily and requests a refill of her glucose test strips. She has been experiencing pain in the medial aspect of her thumb for the past few weeks, which she attributes to packing activities. She reports experiencing nasal congestion and pain, without any accompanying nasal discharge. She currently resides in a new environment with pets, however, denies any history of pet allergies. She presents with ongoing symptoms of urinary frequency and is prescribed Myrbetriq 50 mg daily. She expresses uncertainty regarding her forthcoming consultation at [facility] scheduled in the upcoming months. Patient has no other questions or concern at this time. Review of Systems PHQ Score Initial Depression Screen Score: 0 SCORE All negative except as noted in the HPI. Physical Exam Vitals & Measurements T: 36.6 ?C(Oral) HR: 75(Peripheral) RR: 16 BP: 130/74 SpO2: 98% HT: 65 in HT: 165 cm WT: 91.5 kg WT: 201.3 lb BMI: 33.61 General: obese female, well nourished, in no acute distress Lungs: Normal respiratory effort and clear to auscultation Cardio: Regular rate and rhythm, normal S1 and S2, no murmur, no rub Neurologic: Grossly normal Lymph Nodes: No cervical adenopathy, nodes normal Mental Status: Alert and oriented x3. Normal mood and affect Assessment/Plan 1. Type 2 diabetes mellitus with hypercholesterolemia (E11.69: Type 2 diabetes mellitus with other specified complication) The patient presented with a 3.5-pound weight loss. The patient will continue her current Rybelsus treatment, with a dosage increase to 7 mg, and a decrease in insulin administration. A prescription for 200 test strips has been provided, along with instructions for conducting blood glucose checks twice daily and as required In the event of hypoglycemia, the patient is advised to promptly notify us, enabling us to make appropriate adjustments to her insulin dosage. The importance of the following were all reviewed with the patient: -Take medications as prescribed. -Exercise and diet as discussed. -Monitoring blood sugar and HgBA1c regularly. -Monitoring urine microalbumin regularly to check for kidney damage. -Annual eye exams to prevent blindness. -Proper foot care and regularly checking feet to prevent sores and possibly loss of limbs. 2. BMI 33.0-33.9,adult (Z68.33: Body mass index [BMI] 33.0-33.9, adult) The standard range for ages 18 and older is >=18.5 and < 25 kg/m2. Your BMI today was above this range, this falls in the overweight to obese category and there are medical benefits to weight loss. We can offer counselling, referral, and/or medical support in addressing this problem. Your BMI and weight management will be followed at subsequent visits. 3. Morbid obesity (E66.01: Morbid (severe) obesity due to excess calories) See above Pure hypercholesterolemia, unspecified (E78.00: Pure hypercholesterolemia, unspecified) Patient verbalized understanding and is agreeable to plan and course of treatment. This documentation was completed by voice-activated device and software. Inaccuracies compared to the original dictation of this provider are possible although this document has been overread and corrected. Portions of this record may have been created with voice recognition artificial intelligence software, specifically [employer], [employer] and or [employer]. Substitutions may have occurred due to the inherent limitations of voice recognition an (more content not included)... [facility] Comment on above: Result Comment: Elec tronically Signed By: Marvin Husain PA-C\.br\Date and Time Signed: 09/17/23 20:34 EDT\.br\Electronically Co-Signed By: Angie Iglesias\.br\Date and Time Co-Signed: 09/11/23 15:58 EDT Ambulatory Visit Summaryon 0 09-11-2023 Ambulatory Visit Summary SABINA CANELA :1950 Visit Date:09/11/2023 Ambulatory Visit Instructions Your Diagnosis Type 2 diabetes mellitus with hypercholesterolemia BMI 33.0-33.9,adult Morbid obesity Pure hypercholesterolemia, unspecified Your Care Team Attending Physician - Marvin Husain PA-C Primary Care Physician - Marvin Husain PA-C This Is Your Medications List Misc Prescription (Test Strips) semaglutide (Rybelsus 7 mg oral tablet) Contact prescribing physician if questions or concerns Misc Prescription (32 gauge pen needle 4 mm) Misc Prescription (Alcohol swabs, Jose F, band-aids) Misc Prescription (Glucometer) Misc Prescription (Lancet #100) amlodipine (amLODIPine 5 mg Tab) atorvastatin (Lipitor 40 mg Tab) ergocalciferol (ergocalciferol 50,000 intl units Cap) folic acid (folic acid 1 mg Tab) glimepiride (glimepiride 4 mg Tab) insulin glargine (Basaglar KwikPen 100 units/mL subcutaneous solution) ketoconazole topical (ketoconazole Top 2% Crm) levothyroxine (levothyroxine 88 mcg (0.088 mg) Tab) magnesium citrate memantine (Namenda 10 mg oral tablet) mirabegron (Myrbetriq 50 mg oral tablet, extended release) nystatin topical (nystatin Top 100,000 units/g Pwdr) ondansetron (Zofran 4 mg Tab) propranolol (propranolol 120 mg Cap-ER) ropinirole (Requip 0.25 mg Tab) trazodone (traZODONE 50 mg Tab) triamcinolone topical (triamcinolone Top 0.025% Crm) Procedures Performed Tubal ligation. Discharge Vitals Temperature (Oral) 36.6 ?C Heart Rate (Peripheral) 75 Respiratory Rate 16 Blood Pressure 130/74 Height 165 cm Height 65 in Weight 91.5 kg Weight 201.3 lb BMI 33.61 What to do next Scheduled Follow-Up Appointments Thursday 11:00 AM EDT With: Marvin Husain PA-C Where: [facility] [place] [facility] [address] [place] [address]- \.br\ You Need to Schedule the Following Appointments\.b r\ Follow Up with Marvin Husain PA-C When: \.br\ Comments:\.br\ FU for DM\.br\ Where:\.br\ [address]\ [place] [address].br\ [id number]\.br\ Medications\.br \ What How Much When Why Instructions\.b r\ New semaglutide (Rybelsus 7 mg oral tablet) 1 Tablets By Mouth Every day Refills: 3 take at least 30 minutes before first food, beverage, or other oral meds Pickup at [facility] #[id number]\.br\ Changed Misc Prescription (Test Strips) See instructions To be used to check blood sugars BID and as needed. Dx: E11.9 Pickup at [facility] #[id number]\.br\ Unchanged amlodipine (amLODIPine 5 mg Tab) 1 Tablets By Mouth Every day Contact prescribing physician if questions or concerns \.br\ Unchanged atorvastatin (Lipitor 40 mg Tab) 1 Tablets By Mouth Every day Contact prescribing physician if questions or concerns \.br\ Unchanged ergocalciferol (ergocalciferol 50,000 intl units Cap) 1 Capsules By Mouth Every week Contact prescribing physician if questions or concerns \.br\ Unchanged folic acid (folic acid 1 mg Tab) 1 Tablets By Mouth Every day Contact prescribing physician if questions or concerns \.br\ Unchanged glimepiride (glimepiride 4 mg Tab) 1 Tablets By Mouth Every day Contact prescribing physician if questions or concerns \.br\ Unchanged insulin glargine (Basaglar KwikPen 100 units/ mL subcutaneous solution) See instructions 30 units SUBQ every morning with food 20 units SUBQ every evening rotate injection sites Contact prescribing physician if questions or concerns \.br\ Unchanged ketoconazole topical (ketoconazole Top 2% Crm) 1 Application Topical Every day Contact prescribing physician if questions or concerns \.br\ Unchanged levothyroxine (levothyroxine 88 mcg (0.088 mg) Tab) 1 Tablets By Mouth Every day take 1 tablet by mouth every morning ON AN EMPTY STOMACH Contact prescribing physician if questions or concerns \.br\ Unchanged magnesium citrate Contact prescribing physician if questions or concerns \.br\ Unchanged memantine (Namenda 10 mg oral tablet) 1 Tablets By Mouth 2 times a day Contact prescribing physician if questions or concerns \.br\ Unchanged mirabegron (Myrbetriq 50 mg oral tablet, extended release) 1 Tablets By Mouth Every day Contact prescribing physician if questions or concerns \.br\ Unchanged Misc Prescription (32 gauge pen needle 4 mm) See instructions Use to administer basaglar BID Contact prescribing physician if questions or concerns \.br\ Unchanged Misc Prescription (Alcohol swabs, Jose F, band-aids) 0 Type 2 diabetes mellitus with hyperglycemia Duration: 30 Days Diabetic supply for a month with 2 refills Contact prescribing physician if questions or concerns \.br\ Unchanged Misc Prescription (Glucometer) 0 Type 2 diabetes mellitus with hyperglycemia Contact prescribing physician if questions or concerns \.br\ Unchanged Misc Prescription (Lancet #100) 0 Type 2 diabetes mellitus with hyperglycemia Diagnoses diabetes. 3 month supplies Contact prescribing physician if questions or concerns \.br\ Unchanged nystatin topical (nystatin Top 100,000 units/ g Pwdr) 1 Application Topical 2 times a day Contact prescribing physician if questions or concerns \.br\ Unchanged ondansetron (Zofran 4 mg Tab) 1 Tablets By Mouth Every 8 hours as needed for Nausea/Vomiting Contact prescribing physician if questions or concerns \.br\ Unchanged propranolol (propranolol 120 mg Cap-ER) 1 Capsules By Mouth Every day Contact prescribing physician if questions or concerns \.br\ Unchanged ropinirole (Requip 0.25 mg Tab) 1 Tablets By Mouth Every day Contact prescribing physician if questions or concerns \.br\ Unchanged trazodone (traZODONE 50 mg Tab) 1 Tablets By Mouth Once a day (at bedtime) take 1 tablet by mouth nightly Contact prescribing physician if questions or concerns \.br\ Unchanged triamcinolone topical (triamcinolone Top 0.025% Crm) See instructions apply 1-2 times a day Contact prescribing physician if questions or concerns \.br\ Pharmacy Information\.br \ [id number]: [address], [place] [phone]\.br\ Allergies\.br\ amoxicillin (Anaphylaxis)\. br\ Problems\.br\ Ongoing - Any problem that you are currently receiving treatment for.\.br\ Anxiety\.br\ BMI 33.0-33.9,adult \.br\ BMI 34.0-34.9,adult \.br\ BMI 37.0-37.9, adult\.br\ Former smoker\.br\ Hypercholestero lemia\.br\ Hypothyroid\.br \ Long-term insulin use\.br\ Morbid obesity\.br\ Primary hypertension\.b r\ Stage 3a chronic kidney disease (CKD)\.br\ Type 2 diabetes mellitus with hypercholestero lemia\.br\ Type 2 diabetes mellitus with hyperglycemia\. br\ Type 2 diabetes mellitus with stage 3a chronic kidney disease\.br\ Urgency incontinence\.b r\ Historical - Any problem that you are no longer receiving treatment for.\.br\ Diabetes\.br\ Smoker\.br\ Patient Survey\.br\ You may receive a survey via text or e-mail asking about your office visit. Please share your experience with us by completing your survey. We appreciate your feedback and thank you for choosing us for your care.\.br\ \.br\ [facility] Progress Note - Nutritionon 09-09-2023 Progress Note - Nutrition F/U appt 7:30-8AM Weight: 198.8# weight loss 3.8#. Previously reported weigh of 210# range. Sabina was here today for her f/u MNT appt r/t diabetes. She is reporting of moving in w son in [place]. He has a home with his stepdaughter. He works nights. She continues to get up at 1AM in order to take all her meds and eat around 4AM. Wanting to change this schedule now that she is living w son who works afternoons. This was discussed w [facility] pharmacist and reviewed timing of 4 medications. She is aware of the changes to only taking 2 meds without food and waiting before the next. Food logs reviewed. She is now eating 3 times a day and one snack on most days. Schedule adjusted w new living arrangements. Intakes appear to be closer to grams of carbs prescribed. She continues to consume simple sugars with Honeycomb cereal 1-2 times per day. Asking me about her Little Alyse Zebra cakes. FSBS this AM reported as 184mg/dL, forgot glucose logbook for me to review but reporting glucose ran low at 86. Discussed ranges. 1. Medications reviewed w timing of meals. 2. Carb distribution reviewed. 3. Goal for carbs 45-60/45/60/30. 4. Enc increased exercise w walking on trail, and going up and down stairs, and dancing. 5. Monitor glucose as prescribed. 6. F/U w RD as needed. 7. Enc DSME program, declined d/t out of pocket expenses. 8. F/U w provider. [facility] Progress Note - Nutritionon 08-25-2023 Progress Note - Nutrition Follow Up 7:30-8:44AM Sabina was here today without her daughter. She is looking to move out of her daughter's home very soon. Today she is looking for her own place to live. She has kept her food log with great detail She has listed the times of her intakes as well as specific intakes at each time. Documentation indicates 3 meals and one HS snack daily. She has been trying to adhere to mealtimes very well. Her blood glucose is monitored 2 times a day. Her AM number are 1-2 hours after she eats breakfast, not fasting. Today we spent more time reading food labels and looking at carbohydrates, until this day she has only been looking at calories. We have reviewed her intakes in relationship to her prescribed meal plan of 60/60/45/30. After review of food logs, some meals are 100 grams of carbs where other meals are 15 grams of carbs, no consistency in intakes. We specifically reviewed her MOM's meals and food labels she brought in for my review. Carbs varied w MOM's meals. Goal in 2 weeks: Record food logs w grams of carbs at each meal. 60/60/45/30 Consume carbs as prescribed > 50% of meals. [facility] Consent for Treatmenton 08-04 Consent for Treatment [id number] .00TIFF [facility] Physician Orderon 08-12-2023 Physician Order [id number] #1.00TIFF [facility] Physician Referralon 024 Physician Referral [id number] 0 [id number] .00TIFF [facility] Ambulatory Visit Summaryon 0 08-11-2023 Ambulatory Visit Summary SABINA CANELA :1950 Visit Date:08/11/2023 Ambulatory Visit Instructions Your Diagnosis Type 2 diabetes mellitus with hyperglycemia Hypothyroid BMI 34.0-34.9,adult Obesity Your Care Team Attending Physician - Marvin Husain PA-C Primary Care Physician - Marvin Husain PA-C This Is Your Medications List ondansetron (Zofran 4 mg Tab) semaglutide (Rybelsus 3 mg oral tablet) Contact prescribing physician if questions or concerns Misc Prescription (32 gauge pen needle 4 mm) Misc Prescription (Alcohol swabs, Kinde, band-aids) Misc Prescription (Glucometer) Misc Prescription (Lancet #100) Misc Prescription (Test Strips) amlodipine (amLODIPine 5 mg Tab) atorvastatin (Lipitor 40 mg Tab) ergocalciferol (ergocalciferol 50,000 intl units Cap) folic acid (folic acid 1 mg Tab) glimepiride (glimepiride 4 mg Tab) insulin glargine (Basaglar KwikPen 100 units/mL subcutaneous solution) ketoconazole topical (ketoconazole Top 2% Crm) levothyroxine (levothyroxine 88 mcg (0.088 mg) Tab) magnesium citrate memantine (Namenda 10 mg oral tablet) mirabegron (Myrbetriq 50 mg oral tablet, extended release) nystatin topical (nystatin Top 100,000 units/g Pwdr) propranolol (propranolol 120 mg Cap-ER) ropinirole (Requip 0.25 mg Tab) trazodone (traZODONE 50 mg Tab) triamcinolone topical (triamcinolone Top 0.025% Crm) Procedures Performed Tubal ligation. Discharge Vitals Temperature (Oral) 36.8 ?C Heart Rate (Peripheral) 70 Respiratory Rate 18 Blood Pressure 132/78 Height 165 cm Height 65 in Weight 92.9 kg Weight 204.38 lb BMI 34.12 What to do next Scheduled Follow-Up Appointments Thursday 11:00 AM EDT With: Marvin Husain PA-C Where: [facility] [place] [facility] [address] [place] [address]- \.br\ You Need to Schedule the Following Appointments\.b r\ Follow Up with Marvin Husain PA-C When: In 1 month\.br\ Comments:\.br\ FU for DM II, please reschedule 08/24/23 appointment\.br \ Where:\.br\ [address]\ [place] [address].br\ [phone]\.br\ Medications\.br \ What How Much When Why Instructions\.b r\ New ondansetron (Zofran 4 mg Tab) 1 Tablets By Mouth Every 8 hours as needed for Nausea/Vomiting Pickup at [facility] #[id number]\.br\ New semaglutide (Rybelsus 3 mg oral tablet) 1 Tablets By Mouth Every day Type 2 diabetes mellitus with hyperglycemia take at least 30 minutes before first food, beverage, or other oral meds Pickup at [facility] #[id number]\.br\ Unchanged amlodipine (amLODIPine 5 mg Tab) 1 Tablets By Mouth Every day Contact prescribing physician if questions or concerns \.br\ Unchanged atorvastatin (Lipitor 40 mg Tab) 1 Tablets By Mouth Every day Contact prescribing physician if questions or concerns \.br\ Unchanged ergocalciferol (ergocalciferol 50,000 intl units Cap) 1 Capsules By Mouth Every week Contact prescribing physician if questions or concerns \.br\ Unchanged folic acid (folic acid 1 mg Tab) 1 Tablets By Mouth Every day Contact prescribing physician if questions or concerns \.br\ Unchanged glimepiride (glimepiride 4 mg Tab) 1 Tablets By Mouth Every day Contact prescribing physician if questions or concerns \.br\ Unchanged insulin glargine (Basaglar KwikPen 100 units/ mL subcutaneous solution) See instructions 30 units SUBQ every morning with food 20 units SUBQ every evening rotate injection sites Contact prescribing physician if questions or concerns \.br\ Unchanged ketoconazole topical (ketoconazole Top 2% Crm) 1 Application Topical Every day Contact prescribing physician if questions or concerns \.br\ Unchanged levothyroxine (levothyroxine 88 mcg (0.088 mg) Tab) 1 Tablets By Mouth Every day take 1 tablet by mouth every morning ON AN EMPTY STOMACH Contact prescribing physician if questions or concerns \.br\ Unchanged magnesium citrate Contact prescribing physician if questions or concerns \.br\ Unchanged memantine (Namenda 10 mg oral tablet) 1 Tablets By Mouth 2 times a day Contact prescribing physician if questions or concerns \.br\ Unchanged mirabegron (Myrbetriq 50 mg oral tablet, extended release) 1 Tablets By Mouth Every day Contact prescribing physician if questions or concerns \.br\ Unchanged Misc Prescription (32 gauge pen needle 4 mm) See instructions Use to administer basaglar BID Contact prescribing physician if questions or concerns \.br\ Unchanged Misc Prescription (Alcohol swabs, Jose F, band-aids) 0 Type 2 diabetes mellitus with hyperglycemia Duration: 30 Days Diabetic supply for a month with 2 refills Contact prescribing physician if questions or concerns \.br\ Unchanged Misc Prescription (Glucometer) 0 Type 2 diabetes mellitus with hyperglycemia Contact prescribing physician if questions or concerns \.br\ Unchanged Misc Prescription (Lancet #100) 0 Type 2 diabetes mellitus with hyperglycemia Diagnoses diabetes. 3 month supplies Contact prescribing physician if questions or concerns \.br\ Unchanged Misc Prescription (Test Strips) See instructions To be used daily with blood sugars checks. Dx: E11.9 Contact prescribing physician if questions or concerns \.br\ Unchanged nystatin topical (nystatin Top 100,000 units/ g Pwdr) 1 Application Topical 2 times a day Contact prescribing physician if questions or concerns \.br\ Unchanged propranolol (propranolol 120 mg Cap-ER) 1 Capsules By Mouth Every day Contact prescribing physician if questions or concerns \.br\ Unchanged ropinirole (Requip 0.25 mg Tab) 1 Tablets By Mouth Every day Contact prescribing physician if questions or concerns \.br\ Unchanged trazodone (traZODONE 50 mg Tab) 1 Tablets By Mouth Once a day (at bedtime) take 1 tablet by mouth nightly Contact prescribing physician if questions or concerns \.br\ Unchanged triamcinolone topical (triamcinolone Top 0.025% Crm) See instructions apply 1-2 times a day Contact prescribing physician if questions or concerns \.br\ Pharmacy Information\.br \ [id number]: [address], [place] [phone]\.br\ Allergies\.br\ amoxicillin (Anaphylaxis)\. br\ Problems\.br\ Ongoing - Any problem that you are currently receiving treatment for.\.br\ Anxiety\.br\ BMI 34.0-34.9,adult \.br\ BMI 37.0-37.9, adult\.br\ Former smoker\.br\ Hypercholestero lemia\.br\ Hypothyroid\.br \ Long-term insulin use\.br\ Morbid obesity\.br\ Primary hypertension\.b r\ Stage 3a chronic kidney disease (CKD)\.br\ Type 2 diabetes mellitus with hypercholestero lemia\.br\ Type 2 diabetes mellitus with hyperglycemia\. br\ Type 2 diabetes mellitus with stage 3a chronic kidney disease\.br\ Urgency incontinence\.b r\ Historical - Any problem that you are no longer receiving treatment for.\.br\ Diabetes\.br\ Smoker\.br\ Patient Survey\.br\ You may receive a survey via text or e-mail asking about your office visit. Please share your experience with us by completing your survey. We appreciate your feedback and thank you for choosing us for your care.\.br\ \.br\ [facility] Family Medicine Office/Clini c Noteon 08-11-2023 Family Medicine Office/Clinic Note Chief Complaint ER follow HPI Staff ER followup: Hospital: [facility] Visit date: 08/03/23 Symptoms the patient presented with: elevated blood sugar, 422 in ER Symptom onset/injury onset: Testing Performed: chest x-ray, ekg, lab work New medications: denies New specialist involved: denies Therapy ordered: Next appointment date: Current concerns: ate bbq beef sandwich and a milkshake History of Present Illness I have reviewed staff HPI and it is correct. Sabina Canela is a 72-year-old female here for emergency department follow-up. The patient presented to the ER on 08/03/2023 with a blood glucose level that was significantly elevated. The patient previously went to [facility] and had a barbecue beef sandwich and a large vanilla milkshake. Urine in the emergency department was negative for ketones. Glucose was 422 mg/dL. The patient was given IV fluids and sent home to follow up with PCP. The patient is currently on Basaglar 130 units every morning with food and 20 units every evening along with glimepiride 4 mg daily. The patient had been consuming a combination of barbecue beef and vanilla milkshake at [facility], however, she has chosen not to purchase them. She now buys healthy food and has brought her blood glucose log for review. Her current medication regimen includes glimepiride and insulin for her diabetes. Her other medication is metformin, and with no other injectable medications. She self-administers insulin in her abdomen. She reports frequent urination. Her daily routine involves waking up around 01:30 AM, having her first meal at 03:00 AM, consisting of soft powdered donuts and Powerade. At 04:00 AM, she consumes boiled eggs with glimepiride and 2 cups of coffee. She takes her thyroid medications at 02:00 AM. She has an appointment on 08/24/2023. She denies any family history of thyroid cancer. Patient has no other questions at this time. Review of Systems PHQ Score Initial Depression Screen Score: 1 SCORE All negative except as noted in the HPI. Physical Exam Vitals & Measurements T: 36.8 ?C(Oral) HR: 70(Peripheral) RR: 18 BP: 132/78 SpO2: 98% HT: 65 in HT: 165 cm WT: 92.9 kg WT: 204.38 lb BMI: 34.12 General: obese female, well hydrated, in no acute distress Lungs: Normal respiratory effort and clear to auscultation Cardio: Regular rate and rhythm, normal S1 and S2, no murmur, no rub Neurologic: Grossly normal Lymph Nodes: No cervical adenopathy, nodes normal Mental Status: Alert and oriented x3. Normal mood and affect Assessment/Plan Total time spent preparing the chart, conducting of the encounter with the patient and family and time spent documenting, reviewing, and ordering tests was 30 minutes. Reviewed ED notes and labs from 08/03/23 1. Type 2 diabetes mellitus with hyperglycemia (E11.65: Type 2 diabetes mellitus with hyperglycemia) Patient will continue with insulin as prescribed with glimepiride 4 mg as well. Addition of Rybelsus 3 mg sent to pharmacy. Advised patient that this can sometimes cause upset stomach and nausea. Patient verbalized understanding. A prescription for Zofran as needed was also sent to pharmacy. Educated patient on dangers of elevated blood sugars, signs and symptoms of DKA 2. Hypothyroid (E03.9: Hypothyroidism, unspecified) Discussed with patient that sometimes Rybelsus can affect absorption of levothyroxine. Patient verbalized understanding. Will recheck TSH and thyroid laboratory tests in 2 to 3 months on follow-up appointment. Continue levothyroxine 88 mcg daily as prescribed. 3. BMI 34.0-34.9,adult (Z68.34: Body mass index [BMI] 34.0-34.9, adult) The standard range for ages 18 and older is >=18.5 and < 25 kg/m2. Your BMI today was above this range, this falls in the overweight to obese category and there are medical benefits to weight loss. We can offer counselling, referral, and/or medical support in addressing this problem. Your BMI and weight management will be followed at subsequent visits. 4. Obesity (E66.9: Obesity, unspecified) See problem number 3. The patient will follow up in 1 month. Patient verbalized understanding and is agreeable to plan and course of treatment. This documentation was completed by voice-activated device and software. Inaccuracies compared to the original dictation of this provider are possible although this document has been overread and corrected. Portions of this record may have been created with voice recognition artificial intelligence software, specifically [employer], [employer] and or [employer]. Substitutions may have occurred due to the inherent limitations of voice recognition and artificial intelligence software. ATTESTATION: This note has been generated by [employer] and edited by Juan Casas, Quality Community Development Officer. Follow-up With When Contact Information Marvin Husain PA-C In 1 month [address] [place] [address]- [phone] Additional I (more content not included)... Normal [facility] Comment on above: Result Comment: Elec tronically Signed By: Marvin Husain PA-C\.br\Date and Time Signed: 08/11/23 20:21 EDT\.br\Electronically Co-Signed By: Juan Casas\.br\Date and Time Co-Signed: 08/11/23 11:53 EDT Patient Educationon 08-11-19 24 Patient Education Endocrinology Diabetes Mellitus and Nutrition, Adult When you have diabetes, or diabetes mellitus, it is very important to have healthy eating habits because your blood sugar (glucose) levels are greatly affected by what you eat and drink. Eating healthy foods in the right amounts, at about the same times every day, can help you: ? Manage your blood glucose. ? Lower your risk of heart disease. ? Improve your blood pressure. ? Reach or maintain a healthy weight. What can affect my meal plan? Every person with diabetes is different, and each person has different needs for a meal plan. Your health care provider may recommend that you work with a dietitian to make a meal plan that is best for you. Your meal plan may vary depending on factors such as: ? The calories you need. ? The medicines you take. ? Your weight. ? Your blood glucose, blood pressure, and cholesterol levels. ? Your activity level. ? Other health conditions you have, such as heart or kidney disease. How do carbohydrates affect me? Carbohydrates, also called carbs, affect your blood glucose level more than any other type of food. Eating carbs raises the amount of glucose in your blood. It is important to know how many carbs you can safely have in each meal. This is different for every person. Your dietitian can help you calculate how many carbs you should have at each meal and for each snack. How does alcohol affect me? Alcohol can cause a decrease in blood glucose (hypoglycemia), especially if you use insulin or take certain diabetes medicines by mouth. Hypoglycemia can be a life-threatening condition. Symptoms of hypoglycemia, such as sleepiness, dizziness, and confusion, are similar to symptoms of having too much alcohol. ? Do not drink alcohol if: ? Your health care provider tells you not to drink. ? You are , may be , or are planning to become . ? If you drink alcohol: ? Limit how much you have to: ? 0?1 drink a day for women. ? 0?2 drinks a day for men. ? Know how much alcohol is in your drink. In the [place] one drink equals one 12 oz bottle of beer (355 mL), one 5 oz glass of wine (148 mL), or one 1? oz glass of hard liquor (44 mL). ? Keep yourself hydrated with water, diet soda, or unsweetened iced tea. Keep in mind that regular soda, juice, and other mixers may contain a lot of sugar and must be counted as carbs. What are tips for following this plan? Reading food labels ? Start by checking the serving size on the Nutrition Facts label of packaged foods and drinks. The number of calories and the amount of carbs, fats, and other nutrients listed on the label are based on one serving of the item. Many items contain more than one serving per package. ? Check the total grams (g) of carbs in one serving. ? Check the number of grams of saturated fats and trans fats in one serving. Choose foods that have a low amount or none of these fats. ? Check the number of milligrams (mg) of salt (sodium) in one serving. Most people should limit total sodium intake to less than 2,300 mg per day. ? Always check the nutrition information of foods labeled as low-fat or nonfat. These foods may be higher in added sugar or refined carbs and should be avoided. ? Talk to your dietitian to identify your daily goals for nutrients listed on the label. Shopping ? Avoid buying canned, pre-made, or processed foods. These foods tend to be high in fat, sodium, and added sugar. ? Shop around the outside edge of the grocery store. This is where you will most often find fresh fruits and vegetables, bulk grains, fresh meats, and fresh dairy products. Cooking ? Use low-heat cooking methods, such as baking, instead of high-heat cooking methods, such as deep frying. ? Cook using healthy oils, such as olive, canola, or sunflower oil. ? Avoid cooking with butter, cream, or high-fat meats. Meal planning ? Eat meals and snacks regularly, preferably at the same times every day. Avoid going long periods of time without eating. ? Eat foods that are high in fiber, such as fresh fruits, vegetables, beans, and whole grains. ? Eat 4?6 oz (112?168 g) of lean protein each day, such as lean meat, chicken, fish, eggs, or tofu. One ounce (oz) (28 g) of lean protein is equal to: ? 1 oz (28 g) of meat, chicken, or fish. ? 1 egg. ? ? cup (62 g) of tofu. ? Eat some foods each day that contain healthy fats, such as avocado, nuts, seeds, and fish. What foods should I eat? Fruits Berries. Apples. Oranges. Peaches. Apricots. Plums. Grapes. Mangoes. Papayas. Pomegranates. Kiwi. Cherries. Vegetables Leafy greens, including lettuce, spinach, kale, chard, stef greens, mustard greens, and cabbage. Beets. Cauliflower. Broccoli. Carrots. Green beans. Tomatoes. Peppers. Onions. Cucumbers. [place] sprouts. Grains Whole grains, such as whole-wheat or whole-grain bread, crackers, tortillas, cereal, and pasta. Unsweetened oatmeal. (more content not included)... Normal [facility] Family Medicine Office/Clini c Noteon 08-05-2023 Family Medicine Office/Clinic Note Chief Complaint c/o sore and redness under abd folds and bilateral breasts HPI Staff C/O: Onset: for awhile Location: bilateral breast, abd folds Symptoms: redness, irritation, sore OTC: none History of Present Illness I have reviewed staff HPI and it is correct. Sabina Canela is a 72-year-old female here for concerns regarding red sore underneath her abdominal fold and underneath the breast. The patient also has a past medical history of diabetes, and we are going to discuss her blood glucose today. The patient has consistently followed a regimen of 20 units of insulin administered twice daily since 06/2023. Yesterday morning her blood glucose levels were measured at 97 mg/dL. She remains on glimepiride and has been on insulin therapy since 2019. She is uncertain if she has previously tried GLP-1 therapy. The patient presents with a mild rash on her abdomen, occasionally showing a red hue. She has not used any topical treatments, but experiences a burning sensation during bathing. She lacks nystatin powder. She reports vaginal itching, experiencing a burning sensation upon palpation. She denies needing a refill of medications. Patient has no other questions or concerns at this time. Review of Systems PHQ Score Initial Depression Screen Score: 2 SCORE All negative except as noted in the HPI. Physical Exam Vitals & Measurements T: 36.6 ?C(Oral) HR: 62(Peripheral) RR: 18 BP: 120/78 SpO2: 98% HT: 62 in HT: 157 cm WT: 93 kg WT: 204.6 lb BMI: 37.73 General: Obese female, well hydrated, in no acute distress Lungs: Normal respiratory effort and clear to auscultation Cardio: Regular rate and rhythm, normal S1 and S2, no murmur, no rub Neurologic: Grossly normal Lymph Nodes: No cervical adenopathy, nodes normal Mental Status: Alert and oriented x3. Normal mood and affect Assessment/Plan 1. Type 2 diabetes mellitus with hyperglycemia (E11.65: Type 2 diabetes mellitus with hyperglycemia) At this time, the patient will continue glimepiride 4 mg daily as prescribed. Insulin Basaglar will be adjusted as the patient is currently doing 20 units twice daily and we will adjust to 30 units in the morning followed by 20 units at night. Discussed with patient that she still needs to take her insulin in the mornings if her glucose are within range because this is a long-acting medication that helps to control blood glucose throughout the entirety of the day. 2. Candidal dermatitis (B37.2: Candidiasis of skin and nail) Prescription for fluconazole 100 mg for 7 days sent to pharmacy along with refill for nystatin powder and a clotrimazole cream for vaginal pruritus. 3. BMI 37.0-37.9, adult (Z68.37: Body mass index [BMI] 37.0-37.9, adult) The standard range for ages 18 and older is >=18.5 and < 25 kg/m2. Your BMI today was above this range, this falls in the overweight to obese category and there are medical benefits to weight loss. We can offer counselling, referral, and/or medical support in addressing this problem. Your BMI and weight management will be followed at subsequent visits. 4. Morbid obesity (E66.01: Morbid (severe) obesity due to excess calories) See above. Portions of this record may have been created with voice recognition artificial intelligence software, specifically [employer], [employer] and or [employer]. Substitutions may have occurred due to the inherent limitations of voice recognition and artificial intelligence software. Patient verbalized understanding and is agreeable to plan and course of treatment. This documentation was completed by voice-activated device and software. Inaccuracies compared to the original dictation of this provider are possible although this document has been overread and corrected. ATTESTATION: This note has been generated by [employer] and edited by Deisy Gomes, Quality Community Development Officer. Follow-up With When Contact Information Marvin Husain PA-C In 1 month [address] [place] [address]- [phone] Additional Instructions: FU for DM Patient Education Diabetes Mellitus and Nutrition, Adult Problem List/Past Medical History Ongoing Anxiety BMI 37.0-37.9, adult Former smoker Hypercholesterolemia Hypothyroid Long-term insulin use Morbid obesity Primary hypertension Stage 3a chronic kidney disease (CKD) Type 2 diabetes mellitus with hypercholesterolemia Type 2 diabetes mellitus with hyperglycemia Type 2 diabetes mellitus with stage 3a chronic kidney disease Urgency incontinence Historical Diabetes Smoker Procedure/Surgical History Tubal ligation. Medications 32 gauge pen needle 4 mm, See Instructions, 3 refills Alcohol swabs, Jose F, band-aids, 0, 2 refills amLODIPine 5 mg Tab, 5 mg= 1 tab(s), Oral, Daily, 1 refills Basaglar KwikPen 100 units/mL subcutaneous solution, See Instructions, 5 refills ergocalciferol 50,000 intl units Cap, 50588 International_Unit= 1 cap(s), Oral, qWeek (more content not included)... Normal [facility] Comment on above: Result Comment: Elec tronically Signed By: Marvin Husain PA-C\.br\Date and Time Signed: 08/05/23 22:00 EDT\.br\Electronically Co-Signed By: Deisy Gomes\.br\Date and Time Co-Signed: 07/31/23 10:30 EDT ED Note-Physicianon 08-04-19 ED Note-Physician Basic Information Time Seen: Fernando Talbert PA-C 08/03/2023 15:57 Chief Complaint Pt reports glucose was reading high at 1455. known DM. Takes insulin and oral meds for diabetes. recent adjustment in insulin, but increased amount given on thursday. Increase in urination otherwise no s/s. History of Present Illness 72-year-old female comes to the ED for evaluation of hyperglycemia. The patient states blood sugars were reading normally this morning. After lunch today she checked her blood sugar and noted it was markedly elevated. She states for lunch she did have a barbecue beef sandwich and vanilla milkshake. She does complain of some polydipsia. No polyuria. No abdominal pain. No nausea or vomiting. She is resting comfortably. She took her insulin today per usual. Review of Systems A 10 point review of systems is negative except as noted above. Medical and Surgical History: Reviewed and noted Social history: Lives at home Tobacco: Denies Physical Exam Vitals & Measurements T: 36.8 ?C(Oral) HR: 68(Peripheral) RR: 16 BP: 137/69 SpO2: 98% HT: 165.1 cm WT: 94.1 kg BMI: 34.52 Nurses notes and vital signs reviewed and patient is not hypoxic. General: The patient appears well and in no significant distress Patient is resting comfortably on the exam bed. Skin: Warm, dry, no pallor noted. Head: Atraumatic. Neck: No JVD. Eye: Normal conjunctiva. Ears, Nose, Mouth, and Throat: Moist mucous membranes Cardiovascular: Strong distal pulses. Chest wall: Respiratory: Respirations are nonlabored. Back: Normal range of motion, no CVA tenderness. Musculoskeletal: Normal ROM with no gross deformity. Gastrointestinal: Soft and nontender. Urological: Neurological: Awake and alert. No focal deficits. Follows commands. GCS 15. Psychiatric: Cooperative. Medical Decision Making Laboratory studies reviewed and noted. Patient does have hyperglycemia, glucose 422, without acidosis. CO2 23, gap 12. Negative beta-hydroxybutyrate. Hyperglycemia likely secondary to dietary indiscretions as she did have a large milkshake prior to arrival. The patient took insulin just prior to arrival. She was given a liter of fluid here as well. She is discharged home to follow-up with her PCP. Patient was encouraged to return to the ED if symptoms worsen or change. Critical Care Time: 40 minutes, critical care time is separate from any procedures that are performed. The following was considered in the determination of critical care but not limited to the level medical decision-making, intensive cardiac and/or respiratory monitor, frequent vital sign monitoring, evaluation of laboratory studies, evaluation of a radiographic studies, oxygen monitoring and constant monitoring. Assessment/Plan Hyperglycemia (R73.9: Hyperglycemia, unspecified) Orders: Sodium Chloride 0.9% intravenous solution, 1,000 mL, Soln-IV, IV, Once, Stop date 08/03/23 16:06:00 EDT, STAT, Start date 08/03/23 16:06:00 EDT, Infuse over 61, minute(s) Basic Metabolic Panel Beta-hydroxybutyrate CBC w/ Auto Diff ECG 12 Lead Adult ED Cardiac Monitoring eGFR Extra Blue Tube Extra SST Tube Routine Capillary Glucose POC UA with Cult Rflx XR Chest Single View Medications Administered Given NS 1000 ml Bolus, 1000 mL, IV Disposition Plan Patient Discharge Condition Disposition: Discharged home Condition: Improved and stable Counseled: Patient and/or family were counseled to workup, results, treatment plan and follow-up recommendations Discharge Prescription List Prescriptions No active prescription medications Follow-up With When Contact Information Marvin Husain In 3 days 08/06/2023 EDT [address] [place] [address]- [phone] Business (1) Additional Instructions: Patient Education Hyperglycemia Attestation I performed a substantive part of the MDM during the patient?s E/M visit. I personally made or approved the documented management plan and acknowledge its risk of complications. (Independent Interpretation) My (EKG/X-Ray/US/CT) interpretation as above. (Discussion) Management/test interpretation discussed with APC. This report was transcribed using voice recognition software. Every effort was made to ensure accuracy, however, inadvertently computerized contact lens manufacturer mistakes may be present. Appropriate healthcare PPE was used in evaluating this patient. Problem List/Past Medical History Ongoing Anxiety BMI 37.0-37.9, adult Former smoker Hypercholesterolemia Hypothyroid Long-term insulin use Morbid obesity Primary hypertension Stage 3a chronic kidney disease (CKD) Type 2 diabetes mellitus with hypercholesterolemia Type 2 diabetes mellitus with hyperglycemia Type 2 diabetes mellitus with stage 3a chronic kidney disease Urgency incontinence Historical Diabetes Smoker Procedure/Surgical History Tubal ligation. Medications Inpatient No active inpatient medications Home 32 gauge pen needle 4 mm, See Instru (more content not included)... Normal [facility] Comment on above: Result Comment: Elec tronically Signed By: Fernando Talbert PA-C\.br\Date and Time Signed: 08/03/23 17:40 EDT\.br\Electronically Co-Signed By: Miguel Drummond DO\.br\Date and Time Co-Signed: 08/04/23 13:00 EDT XR Chest Single Viewon 08-03 XR Chest Single View Exam Date/Time: 08/03/2023 16:29 EDT Reason for Exam: Shortness of breath (SOB) Report IMPRESSION: NO EVIDENCE OF ACTIVE CARDIOPULMONARY DISEASE, BY PORTABLE CHEST RADIOGRAPHY. EXAM: XR Chest Single View DATE: 08/03/2023 4:08 PM CLINICAL HISTORY: Shortness of breath (SOB). COMPARISON: Portable chest 05/04/[address] abdomen and pelvis 09/20/2016. TECHNIQUE: A portable upright AP radiograph of the chest was obtained. FINDINGS: There is no significant pulmonary infiltrate, cardiomegaly, vascular congestion, sizable pleural effusion, pneumothorax, or displaced fractures identified. Ordering Provider: Fernando Talbert FINAL REPORT Dictated: 08/04/2023 8:44 am Humza Loving MD Signed (Electronic Signature): 08/04/2023 8:44 am Signed by: Humza Loving MD Transcribed by: CHAGO Technologist: REMIGIO Technical Comments Radiation Dose: Ka,r in mGy = na DAP = na Normal [facility] BMPon 08-03-2023 Anion gap [Moles/Vol] 12 mmol/L Normal 6-16 [facility] Comment on above: Performed By: #### 1 [id number], [id number], [id number], [id number] ####[facility] [address] [place] [address] Calcium [Mass/Vol] 9.0 mg/dL Normal 8.9-11.1 [facility] Comment on above: Performed By: #### 1 [id number], [id number], [id number], [id number] ####[facility] [address] [place] [address] Chloride [Moles/Vol] 105 mmol/L Normal 101-111 [facility] Comment on above: Performed By: #### 1 [id number], [id number], [id number], [id number] ####[facility] [address] [place] [address] CO2 [Moles/Vol] 23 mmol/L Normal 21-31 [facility] Comment on above: Performed By: #### 1 [id number], [id number], [id number], 0889659 ####[facility] [address] [place] [address] Creatinine [Mass/Vol] 1.5 mg/dL High 0.5-1.3 [facility] Comment on above: Performed By: #### 1 [id number], [id number], [id number], 3302832 ####[facility] [address] [place] [address] Glucose [Mass/Vol] 422 mg/dL High 55-199 [facility] Comment on above: Performed By: #### 1 [id number], [id number], 9772745, 6899099 ####[facility] [address] [place] [address] Potassium [Moles/Vol] 4.1 mmol/L Normal 3.5-5.3 [facility] Comment on above: Performed By: #### 1 [id number], [id number], [id number], 8109860 ####[address] [place] [address] Sodium [Moles/Vol] 136 mmol/L Normal 135-145 [facility] Comment on above: Performed By: #### 1 [id number], [id number], 2137441, 3392968 ####[address] Urea nitrogen [Mass/Vol] 14 mg/dL Normal 5-21 [facility] Comment on above: Performed By: #### 1 [id number], [id number], 0896638, 6813039 ####[address] Urea nitrogen/Creatinine [Mass ratio] 9 No Units Low 10-20 [facility] Comment on above: Performed By: #### 1 [id number], [id number], 9671506, 6951100 ####[address] [address] BOHBon 08-03-2023 Beta HB Qnt <0.10 Normal 0.02-0.27 [facility] Comment on above: Performed By: #### 1 [id number], [id number], 0578313, 1865505 ####[address] [address] CBC w/ Auto Diffon 4 Basophils/100 WBC (Bld) 0.3 % Normal 0.0-2.0 [facility] Comment on above: Performed By: #### 1 [id number], [id number], 0552968, 5015489 ####[address] [address] Basophils/Leukocytes Auto (Bld) [Pure # fraction] 0.0 E9/L Normal 0.0-0.2 [facility] Comment on above: Performed By: #### 1 [id number], [id number], 7309650, 2575402 ####[facility] [address] [place] [address] Eosinophils (Bld) [#/Vol] 0.1 E9/L Normal 0.0-0.5 [facility] Comment on above: Performed By: #### 1 [id number], [id number], 2708910, 4916253 ####[address] [place] [address] Eosinophils/100 WBC (Bld) 2.2 % Normal 0.0-8.0 [facility] Comment on above: Performed By: #### 1 [id number], [id number], 2054372, 9800972 ####[address] [address] Erythrocyte distribution width (RBC) [Ratio] 13.1 % Normal 10.9-14.2 [facility] Comment on above: Performed By: #### 1 [id number], [id number], 4761468, 4823289 ####[address] [address] Hematocrit (Bld) [Volume fraction] 37.7 % Normal 34.0-46.0 [facility] Comment on above: Performed By: #### 1 1701584, [id number], 8077350, 4093932 ####[address] [address] Hemoglobin (Bld) [Mass/Vol] 12.3 g/dL Normal 12.0-16.0 [facility] Comment on above: Performed By: #### 1 [id number], [id number], 0508549, 4475089 ####[address] [address] Lymphocytes (Bld) [#/Vol] 1.8 E9/L Normal 1.0-4.0 [facility] Comment on above: Performed By: #### 1 1343615, [id number], 0825727, 2511606 ####[address] [address] Lymphocytes/100 WBC (Bld) 29.8 % Normal 14.0-50.0 [facility] Comment on above: Performed By: #### 1 [id number], [id number], 3238644, 8827068 ####[address] [place] [address] MCH (RBC) [Entitic mass] 29.3 pg Normal 27.0-34.0 [facility] Comment on above: Performed By: #### 1 [id number], [id number], 9467766, 4703185 ####[address] [address] MCHC (RBC) [Mass/Vol] 32.7 g/dL Normal 31.4-36.0 [facility] [place] Comment on above: Performed By: #### 1 [id number], [id number], [id number] ####[address] [address] MCV (RBC) [Entitic vol] 89.5 fL Normal 80.0-100.0 [facility] Comment on above: Performed By: #### 1 [id number], [id number], [id number] ####[address] [address] Monocytes (Bld) [#/Vol] 0.8 E9/L Normal 0.2-1.0 [facility] Comment on above: Performed By: #### 1 [id number], [id number], [id number], [id number] ####[address] [address] Neutrophils (Bld) [#/Vol] 3.3 E9/L Normal 2.0-7.5 [facility] Comment on above: Performed By: #### 1 [id number], [id number], [id number], [id number] ####[address] [place] [address] Neutrophils/100 WBC (Bld) 54.9 % Normal 36.0-75.0 [facility] Comment on above: Performed By: #### 1 [id number], [id number], [id number], [id number] ####[address] [place] [address] Platelet 204.0 E9/L Normal 150.0-500.0 [facility] Comment on above: Performed By: #### 1 [id number], [id number], [id number], [id number] ####[id number] Platelet mean volume (Bld) [Entitic vol] 8.8 fL Normal 6.4-10.8 [facility] Comment on above: Performed By: #### 1 [id number], [id number], [id number], [id number] ####[id number] RBC (Bld) [#/Vol] 4.2 E12/L Low 4.3-5.9 [facility] Comment on above: Performed By: #### 1 [id number], [id number], [id number], [id number] ####[id number] WBC corrected for nucl RBC Auto (Bld) [#/Vol] 6.0 E9/L Normal 4.0-11.0 [facility] Comment on above: Performed By: #### 1 [id number], [id number], [id number], [id number] ####[id number] CHEMISTRYOrdered By: Lab ROP User on 08-03-2023 Glucose [Mass/Vol] 228 mg/dL High 55 - 99 mg/dL FTM C POC Subsection POC Device SN [id number] 1 Invalid Interpretation Code [facility] POC Subsection POC User ID [id number] 1 Invalid Interpretation Code [facility] POC Subsection POC Username M[facility]ENT [facility] Invalid Interpretation Code [facility] POC Subsection Glucose [Mass/Vol] 284 mg/dL High 55 - 99 mg/dL FTM C POC Subsection Comment on above: Result Comment: Jing poli Meter POC Device SN [id number] 1 Invalid Interpretation Code [facility] POC Subsection POC User ID [id number] 1 Invalid Interpretation Code [facility] POC Subsection POC Username MILLICENT VITAL Invalid Interpretation Code FT POC Subsection Glucose [Mass/Vol] 405 mg/dL High 55 - 99 mg/dL FTM C POC Subsection Comment on above: Result Comment: Sona moran RN/ POC Device SN [id number] 1 Invalid Interpretation Code FT POC Subsection POC User ID [id number] 1 Invalid Interpretation Code FT POC Subsection POC Username BLAKE LE Invalid Interpretation Code [facility] POC Subsection CHEMISTRYOrdered By: SYSTEM SYSTEM on 08-03-2023 Anion gap [Moles/Vol] 12 mmol/L Normal 6 - 16 mEq/L R emisol Chem Beta HB Qnt mmol/L Normal 0.02 - 0.27 mmol/L Remisol Chem Calcium [Mass/Vol] 9.0 mg/dL Normal 8.9 - 11. 1 mg/dL Remisol Chem Chloride [Moles/Vol] 105 mmol/L Normal 101 - 1 11 mmol/L Remisol Chem CO2 [Moles/Vol] 23 mmol/L Normal 21 - 31 mmol/L Remis ol Chem Creatinine [Mass/Vol] 1.5 mg/dL High 0.5 - 1.3 mg/d L Remisol Chem eGFR 37 mL/min/1.73 m2 Low >=59mL/min /1.73 m2 Remisol Chem Glucose [Mass/Vol] 422 mg/dL High 55 - 199 mg/dL Re misol Chem Potassium [Moles/Vol] 4.1 mmol/L Normal 3.5 - 5.3 mmol/L Remisol Chem Sodium [Moles/Vol] 136 mmol/L Normal 135 - 145 mmol/L Remisol Chem Urea nitrogen [Mass/Vol] 14 mg/dL Normal 5 - 21 mg/dL Remisol Chem Urea nitrogen/Creatinine [Mass ratio] 9 mg/mg Low 10 - 20 Remisol Chem Capillary Glucose POCon 07-06 Glucose [Mass/Vol] 228 mg/dL High 55-99 [facility] Comment on above: Performed By: #### 2 [id number] ####[facility] [address] [place] [address] Glucose [Mass/Vol] 284 mg/dL High 55-99 [facility] Comment on above: Result Comment: Jing ashton Meter Performed By: #### 2 [id number] ####[facility] [address] [place] [address] Glucose [Mass/Vol] 405 mg/dL High 55-99 [facility] Comment on above: Result Comment: Sona moran RN/ Performed By: #### 2 [id number] #### [facility] [address] [place] [address] Consent for Treatmenton 07-06 Consent for Treatment [id number]#1 .00TIFF Normal [facility] Discharge Instructionson Discharge Instructions [id number]# 1.00TIFF Normal [facility] ED Clinical Summaryon 2023 ED Clinical Summary [address] [address] ED Clinical Summary Person Information Name: SABINA CANELA [facility] Age: 72 Years : 1950 Sex: Female Language: Senegalese PCP: Marvin Husain PA-C Marital Status: Visit Id: Visit Reason: Hyperglycemia; HIGH SUGAR READING AT HOME Speciality: Acuity: 3 Enc Type: Emergency Med Service: Emergency Arrival: 08/03/2023 15:31:08 Discharge: 08/03/2023 18:33:56 LOS: 000 03:02 Checkin: 08/03/2023 15:31:08 Checkout: 08/03/2023 18:33:56 Dispo Type: Home (Routine DC) EVENTS: Event Name Event Status Request Date/Time Start Date/Time Complete Date/Time Arrive Complete 08/03/2023 15:31:08 08/03/2023 15:31:08 08/03/2023 15:31:08 Document Home Meds Request 08/03/2023 15:31:08 Triage Complete 08/03/2023 15:31:08 08/03/2023 15:47:34 08/03/2023 15:47:34 Bed Assign Complete 08/03/2023 15:55:07 08/03/2023 15:55:07 08/03/2023 15:55:07 Dr Exam Complete 08/03/2023 15:55:07 08/03/2023 15:57:07 08/03/2023 15:57:07 RN Exam Complete 08/03/2023 15:55:07 08/03/2023 16:12:40 08/03/2023 16:12:40 Pending Labs Complete 08/03/2023 15:55:08 08/03/2023 15:55:08 08/03/2023 15:55:08 Registration Complete 08/03/2023 15:57:07 08/03/2023 16:12:04 08/03/2023 16:12:04 Dr Exam Complete 08/03/2023 15:59:57 08/03/2023 15:59:57 08/03/2023 15:59:57 EKG Complete 08/03/2023 16:07:01 08/03/2023 16:23:17 Meds Admin Complete 08/03/2023 16:07:01 08/03/2023 16:16:12 Pending Labs Complete 08/03/2023 16:07:01 08/03/2023 16:42:29 Lab Complete 08/03/2023 16:07:01 08/03/2023 16:40:25 X-Ray Complete 08/03/2023 16:07:01 08/03/2023 16:08:47 08/03/2023 16:29:13 Reg Complete Request 08/03/2023 16:12:04 Reg Bed Request Complete 08/03/2023 16:12:04 08/03/2023 16:12:04 08/03/2023 16:12:04 Pending Labs Complete 08/03/2023 16:12:52 08/03/2023 16:12:52 08/03/2023 16:40:25 Lab Complete 08/03/2023 16:12:52 08/03/2023 16:12:52 08/03/2023 16:40:25 Pending Labs Complete 08/03/2023 16:13:11 08/03/2023 16:13:11 08/03/2023 16:40:25 Wet Read Complete 08/03/2023 16:29:13 08/03/2023 17:07:09 08/03/2023 17:07:09 Pending Labs Complete 08/03/2023 16:51:30 08/03/2023 16:51:30 08/03/2023 16:51:31 Pending Labs Complete 08/03/2023 17:07:37 08/03/2023 17:07:37 08/03/2023 17:07:37 Pending Labs Complete 08/03/2023 17:12:01 08/03/2023 17:12:01 08/03/2023 17:12:02 Discharge Complete 08/03/2023 17:39:32 08/03/2023 18:34:02 08/03/2023 18:34:02 Pending Labs Complete 08/03/2023 18:16:24 08/03/2023 18:16:24 08/03/2023 18:16:25 Transfer Complete 08/03/2023 18:34:02 08/03/2023 18:34:02 08/03/2023 18:34:02 ADDRESS: [address] [place] [address] [address] [facility] [phone] PHYS DOC NOTES: MEDICAL INFORMATION: Prescriptions Given: Medications to Continue with No Changes Other Medications amlodipine (amLODIPine 5 mg Tab) 1 Tablets By Mouth every day. Refills: 1. atorvastatin (Lipitor 40 mg Tab) 1 Tablets By Mouth every day. Refills: 1. ergocalciferol (ergocalciferol 50,000 intl units Cap) 1 Capsules By Mouth every week. fluconazole (fluconazole 100 mg Tab) 1 Tablets By Mouth every day for 7 Days. Refills: 0. folic acid (folic acid 1 mg Tab) 1 Tablets By Mouth every day. glimepiride (glimepiride 4 mg Tab) 1 Tablets By Mouth every day. Refills: 3. insulin glargine (Basaglar KwikPen 100 units/mL subcutaneous solution) 30 units SUBQ every morning with food 20 units SUBQ every evening rotate injection sites. Refills: 5. ketoconazole topical (ketoconazole Top 2% Crm) 1 Application Topical every day. Refills: 0. levothyroxine (levothyroxine 88 mcg (0.088 mg) Tab) 1 Tablets By Mouth every day. take 1 tablet by mouth every morning ON AN EMPTY STOMACH. Refills: 1. magnesium citrate memantine (Namenda 10 mg oral tablet) 1 Tablets By Mouth 2 times a day. Refills: 0. mirabegron (Myrbetriq 50 mg oral tablet, extended release) 1 Tablets By Mouth every day. Refills: 1. Misc Prescription (32 gauge pen needle 4 mm) Use to administer basaglar BID. Refills: 3. Misc Prescription (Alcohol swabs, Jose F, band-aids) 0 for 30 Days. Diabetic supply for a month with 2 refills. Refills: 2. Misc Prescription (Glucometer) 0. Refills: 0. Misc Prescription (Lancet #100) 0. Diagnoses diabetes. 3 month supplies. Refills: 0. Misc Prescription (Test Strips) To be used daily with blood sugars checks. Dx: E11.9. Refills: 3. nystatin topical (nystatin Top 100,000 units/g Pwdr) 1 Application Topical 2 times a day. Refills: 3. propranolol (propranolol 120 mg Cap-ER) 1 Capsules By Mouth every day. Refills: 1. ropinirole (Requip 0.25 mg Tab) 1 Tablets By Mouth every day. Refills: 1. trazodone (traZODONE 50 mg Tab) 1 Tablets By Mouth once a day (at bedtime). take 1 tablet by mouth nightly. Refills: 1. triamcinolone topical (triamcinolone Top 0.025% Crm) apply 1-2 times a day. Refills: 0. PATIENT EDUCATION INFORMATION: Instructions: Hyperglycemia Follow up: With: Address: When: Marvin Husain [address] (more content not included)... Normal [facility] ED Patient Education Noteon 08-03-2023 ED Patient Education Note Endocrinology Hyperglycemia Hyperglycemia occurs when the level of sugar (glucose) in the blood is too high. Glucose is a type of sugar that provides the body's main source of energy. Certain hormones (insulin and glucagon) control the level of glucose in the blood. Insulin lowers blood glucose, and glucagon increases blood glucose. Hyperglycemia can result from not having enough insulin in the bloodstream, or from the body not responding normally to insulin. Hyperglycemia occurs most often in people who have diabetes (diabetes mellitus), but it can happen in people who do not have diabetes. It can develop quickly, and it can be life-threatening if it causes you to become severely dehydrated (diabetic ketoacidosis or hyperglycemic hyperosmolar state). Severe hyperglycemia is a medical emergency. For most people with diabetes, a blood glucose level above 240 mg/dL is considered hyperglycemia. What are the causes? If you have diabetes, hyperglycemia may be caused by: ? Medicines that increase blood glucose or affect your diabetes control. ? Getting less physical activity. ? Eating more than planned. ? Being sick or injured, having an infection, or having surgery. ? Stress. ? Not giving yourself enough insulin (if you are taking insulin). If you have undiagnosed diabetes, this may be the reason you have hyperglycemia. If you do not have diabetes, hyperglycemia may be caused by: ? Certain medicines, including: ? Steroid medicines. ? Beta-blockers. ? Epinephrine. ? Thiazide diuretics. ? Stress. ? Having a serious illness, an infection, or surgery. ? Diseases of the pancreas. What increases the risk? Hyperglycemia is more likely to develop in people who have risk factors for diabetes, such as: ? Having a family member with diabetes. ? Certain conditions in which the body's disease-fighting system (immune system) attacks itself (autoimmune disorders). ? Being overweight or obese. ? Having an inactive (sedentary) lifestyle. ? Having been diagnosed with insulin resistance. ? Having a history of prediabetes, gestational diabetes, or polycystic ovarian syndrome (PCOS). What are the signs or symptoms? Hyperglycemia may not cause any symptoms. If you do have symptoms, they may include: ? Increased thirst. ? Needing to urinate more often than usual. ? Hunger. ? Feeling very tired. ? Blurry vision. Other symptoms may develop if hyperglycemia gets worse, such as: ? Dry mouth. ? Abdominal pain. ? Loss of appetite. ? Fruity-smelling breath. ? Weakness. ? Unexpected weight loss. ? Tingling or numbness in the hands or feet. ? Headache. ? Cuts or bruises that are slow to heal. How is this diagnosed? Hyperglycemia is diagnosed with a blood test to measure your blood glucose level. This blood test is usually done while you are having symptoms. Your health care provider may also do a physical exam and review your medical history. You may have more tests to determine the cause of your hyperglycemia, such as: ? A fasting blood glucose (FBG) test. You will not be allowed to eat (you will fast) for at least 8 hours before a blood sample is taken. ? An A1C blood test. This provides information about blood glucose control over the previous 2?3 months. ? An oral glucose tolerance test (OGTT). This measures your blood glucose at two times: ? After fasting. This is your baseline blood glucose level. ? 2 hours after drinking a beverage that contains glucose. How is this treated? Treatment depends on the cause of your hyperglycemia. Treatment may include: ? Taking medicine to regulate your blood glucose levels. If you take insulin or other diabetes medicines, your medicine or dosage may be adjusted. ? Lifestyle changes, such as exercising more, eating healthier foods, or losing weight. ? Treating an illness or infection. ? Checking your blood glucose more often. ? Stopping or reducing steroid medicines. If your hyperglycemia becomes severe and it results in diabetic ketoacidosis or hyperglycemic hyperosmolar state, you must be hospitalized and given IV fluids and IV insulin. Follow these instructions at home: General instructions ? Take rpfr-vjs-nsbietd and prescription medicines only as told by your health care provider. ? Do not use any products that contain nicotine or tobacco. These products include cigarettes, chewing tobacco, and vaping devices, such as e-cigarettes. If you need help quitting, ask your health care provider. ? If you drink alcohol: ? Limit how much you have to: ? 0?1 drink a day for women who are not . ? 0?2 drinks a day for men. ? Know how much alcohol is in a drink. In the [place] one drink equals one 12 oz bottle of beer (355 mL), one 5 oz glass of wine (148 mL), or one 1? oz glass of hard liquor (44 mL). ? Learn to manage stress. If you need help with this, ask your health care provider. ? Do exercises as told by your health care provider. ? Keep all follow-up v (more content not included)... Normal [facility] ED Patient Summaryon 024 ED Patient Summary [address], [place] [address] Patient Discharge Instructions Person Information Name: SABINA CANELA Age: 72 Years Arrival Date: 08/03/2023 15:31:08 Discharge Diagnosis: Hyperglycemia Primary Care Physician: Marvin Husain PA-C Provider Information Primary Provider: Miguel Drummond DO Advanced Derrick Boat Runner:Fernando Talbert PA-C The exam and treatment you received in the Emergency Department were for an urgent problem and are not intended as complete care. It is important that you follow up with a doctor, nurse practitioner, or physician?s assistant food service manager for ongoing care. If your symptoms become worse or you do not improve as expected and you are unable to reach your usual health care provider, you should return to the Emergency Department. We are available 24 hours a day. SABINA CANELA has been given the following list of patient education materials, prescriptions and follow-up instructions: Follow-up Instructions: With: Address: When: Marvin Husain [address] [place], [place] [phone] Business (1) In 3 days 08/06/2023 In the event that this physician does not participate in your insurance network, please consult with your insurance company to find a nearby participating provider. Patient Education Materials: Hyperglycemia A MESSAGE TO ALL PATIENTS REGARDING OPIOIDS PRESCRIPTION OPIOIDS: WHAT YOU NEED TO KNOW Prescription opioids can be used to help relieve vpyapayn-zb-wfvnzg pain and are often prescribed following a surgery or injury, or for certain health conditions. These medications can be an important part of the treatment but also come with serious risks. It is important to work with your healthcare provider to make sure you are getting the safest, most effective care. WHAT ARE THE RISKS AND SIDE EFFECTS OF OPIOID USE? Prescription opioids carry serious risks of addiction and overdose, especially with prolonged use. An opioid overdose, often marked by slowed breathing, can cause sudden . The use of prescription opioids can have a number of side effects as well, even when taken as directed: ? Tolerance?meaning you might need to take more of the medication for the same pain relief ? Physical dependence?meaning you have symptoms of withdrawal when a medication is stopped ? Increased sensitivity to pain ? Constipation ? Nausea, vomiting, and dry mouth ? Sleepiness and dizziness ? Confusion ? Depression ? Low levels of testosterone that can result in lower sex drive, energy, and strength ? Itching and sweating RISKS ARE GREATER WITH: ? History of drug misuse, substance use disorder, or overdose ? Mental health conditions (such as depression or anxiety) ? Sleep apnea ? Older age (65 years and older) ? Avoid alcohol while taking prescription opioids. Also, unless specifically advised by your health care provider, medications to avoid include: ? Benzodiazepines (such as Xanax or Valium) ? Muscle relaxants (such as Soma or Flexeril) ? Hypnotics (such as Ambien or Lunesta) ? Other prescription opioids KNOW YOUR OPTIONS Talk to your health care provider about ways to manage your pain that don?t involve prescription opioids. Some of these options may actually work better and have fewer risks and side effects. Options may include: ? Pain relievers such as acetaminophen, ibuprofen, and naproxen ? Some medication that are also used for depression or seizures ? Physical therapy and exercise ? Cognitive behavioral therapy, a psychological, goal-directed approach, in which patients learn how to modify physical, behavioral, and emotional triggers of pain and stress. IF YOU ARE PRESCRIBED OPIOIDS FOR PAIN: ? Never take opioids in greater amounts or more often than prescribed. ? Follow up with your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 289543, 8567652, 421769878, 1846687, 4370434, 345135142, 85114000, 7476497, 3102704 #### [facility] [address] [place] [address] ALP [Catalytic activity/Vol] 79 Int._Unit/L Normal 21-98 [facility] Comment on above: Performed By: #### 2 637214, 4350954, 343087727, 3026706, 8470219, 928481609, 61282726, 9455770, 9084405 #### [facility] [address] [place] [address] ALT No additional P-5'-P [Catalytic activity/Vol] 18 Int._Unit/L Normal 6-46 [facility] Comment on above: Performed By: #### 2 356301, 2144497, 999810844, 8328338, 5159135, 393946544, 95435644, 0974813, 0006399 #### [facility] [address] [place] [address] Anion gap [Moles/Vol] 9 mmol/L Normal 6-16 [facility] Comment on above: Performed By: #### 2 909778, 2110959, 138347191, 4164355, 8139796, 380445845, 66827549, 7857639, 7798314 #### [facility] [address] [place] [address] AST [Catalytic activity/Vol] 17 Int._Unit/L Normal 5-43 [facility] Comment on above: Performed By: #### 2 667365, 0226024, 088552001, 0875650, 6601864, 510854909, 46932849, 6011764, 2586454 #### [facility] [address] [place] [address] Bilirubin [Mass/Vol] 0.6 mg/dL Normal 0.0-1.1 [facility] Comment on above: Performed By: #### 2 267203, 3013971, 545516699, 8639051, 9304037, 252086044, 94639646, 2079130, 1672394 #### [facility] [address] [place] [address] Calcium [Mass/Vol] 9.7 mg/dL Normal 8.9-11.1 [facility] Comment on above: Performed By: #### 2 285001, 2417285, 284342717, 8008344, 5718340, 963732628, 35183596, 6856699, 6595780 #### [facility] [address] [place] [address] Chloride [Moles/Vol] 106 mmol/L Normal 101-111 [facility] Comment on above: Performed By: #### 2 347402, 0719966, 427755618, 3672020, 3228880, 106375531, 15995450, 6144726, 7030487 #### [facility] [address] [place] [address] CO2 [Moles/Vol] 28 mmol/L Normal 21-31 [facility] Comment on above: Performed By: #### 2 177274, 8330516, 812037708, 3247131, 4715097, 651857564, 27858375, 0878243, 1126994 #### [facility] [address] [place] [address] Creatinine [Mass/Vol] 1.1 mg/dL Normal 0.5-1.3 [facility] Comment on above: Performed By: #### 2 600337, 3783975, 378597349, 2379962, 0994638, 173563676, 22307327, 2477294, 8497784 #### [facility] [address] [place] [address] Globulin (S) [Mass/Vol] 2.8 g/dL Normal 1.4-4.0 [facility] Comment on above: Performed By: #### 2 161019, 7762577, 043292733, 7529624, 9293572, 865897597, 56082378, 5761726, 7980718 #### [facility] [address] [place] [address] Glucose [Mass/Vol] 165 mg/dL Normal 55-199 [facility] Comment on above: Performed By: #### 2 605132, 1766999, 043248436, 1932232, 1994274, 663642250, 30337721, 4822147, 7643597 #### [facility] [address] [place] [address] Potassium [Moles/Vol] 4.6 mmol/L Normal 3.5-5.3 [facility] Comment on above: Performed By: #### 2 292882, 8111430, 771288645, 5201076, 8224792, 720675952, 00955782, 0589722, 4275825 #### [facility] [address] [place] [address] Protein [Mass/Vol] 6.7 g/dL Normal 6.0-7.8 [facility] Comment on above: Performed By: #### 2 686096, 6591626, 729644633, 6342493, 7416378, 406594299, 97821995, 1422256, 8791660 #### [facility] [address] [place] [address] Sodium [Moles/Vol] 138 mmol/L Normal 135-145 [facility] Comment on above: Performed By: #### 2 605290, 7132078, 601592481, 2772763, 5540074, 246176114, 38273630, 5727981, 2515050 #### [facility] [address] [place] [address] Urea nitrogen [Mass/Vol] 14 mg/dL Normal 5-21 [facility] Comment on above: Performed By: #### 2 571882, 7151292, 683724942, 9084171, 8053021, 390038586, 87960147, 5830877, 1649374 #### [facility] [address] [place] [address] Urea nitrogen/Creatinine [Mass ratio] 13 No Units Normal 10-20 [facility] Comment on above: Performed By: #### 2 060660, 7286626, 046773547, 3375122, 9377074, 441859635, 49042438, 6770593, 1938554 #### [facility] [address] [place] [address] Consent for Treatmenton 06-04 Consent for Treatment [id number] Normal [facility] [facility] T4on 06-23-2023 Free T4 [Mass/Vol] 1.46 ng/dL Normal 0.58-1.64 [facility] Comment on above: Performed By: #### 2 [id number], 8920979, [id number], 5589459, 8869893, 098701369, 41922211, 2935262, 9228869 #### [facility] [address] [place] [address] HEMATOLOGYOrdered By: SYSTEM SYSTEM on 06-23-2023 Basophils/100 WBC (Bld) 0.3 % Normal 0.0 - 2.0 % Remisol Heme Basophils/Leukocytes Auto (Bld) [Pure # fraction] 0.0 E9/L Normal 0.0 - 0.2 E9/L Remisol Heme Eosinophils (Bld) [#/Vol] 0.2 E9/L Normal 0.0 - 0.5 E9/L Remisol Heme Eosinophils/100 WBC (Bld) 2.9 % Normal 0.0 - 8.0 % Remisol Heme Erythrocyte distribution width (RBC) [Ratio] 12.8 % Normal 10.9 - 14.2 % Remisol Heme Hematocrit (Bld) [Volume fraction] 38.4 % Normal 34.0 - 46.0 % Remisol Heme Hemoglobin (Bld) [Mass/Vol] 12.7 g/dL Normal 12.0 - 16.0 gm/dL Remisol Heme Lymphocytes (Bld) [#/Vol] 2.0 E9/L Normal 1.0 - 4.0 E9/L Remisol Heme Lymphocytes/100 WBC (Bld) 31.6 % Normal 14.0 - 50.0 % Remisol Heme MCH (RBC) [Entitic mass] 29.4 pg Normal 27.0 - 34.0 pg Remisol Heme MCHC (RBC) [Mass/Vol] 33.0 g/dL Normal 31.4 - 36.0 gm/dL Remisol Heme MCV (RBC) [Entitic vol] 89.1 fL Normal 80.0 - 100.0 fL Remisol Heme Monocytes (Bld) [#/Vol] 0.7 E9/L Normal 0.2 - 1.0 E9/L Remisol Heme Monocytes/100 WBC (Bld) 11.7 % Normal 4.0 - 14.0 % Remisol Heme Neutrophils (Bld) [#/Vol] 3.3 E9/L Normal 2.0 - 7.5 E9/L Remisol Heme Neutrophils/100 WBC (Bld) 53.5 % Normal 36.0 - 75.0 % Remisol Heme Platelet mean volume (Bld) [Entitic vol] 10.5 fL Normal 6.4 - 10.8 fL Remisol Heme Platelets (Bld) [#/Vol] 175.0 E9/L Normal 150.0 - 500.0 E9/L Remisol Heme RBC (Bld) [#/Vol] 4.3 E12/L Normal 4.3 - 5.9 E12/L Re misol Heme WBC corrected for nucl RBC Auto (Bld) [#/Vol] 6.2 E9/L Normal 4.0 - 11.0 E9/L Remisol Heme [id number] 06-23-2023 HbA1c (Bld) [Mass fraction] 8.3 % High <=5.9 [facility] Comment on above: Performed By: #### 2 288677, 2793111, [id number], 0627509, 4402187, 975359354, 16081797, 8340822, 2628790 ####[facility] [address] [place] [address] Lipid Panelon 06-23-2023 Cholesterol [Mass/Vol] 123 mg/dL Normal 120-200 [facility] Comment on above: Performed By: #### 2 238103, 2501024, 773542744, 1773841, 7398829, 666813237, 24004759, 9361831, 5755176 #### [facility] [address] [place] [address] Cholesterol in HDL [Mass/Vol] 55 mg/dL Invalid Interpretation Code [facility] Comment on above: Result Comment: '>= 60 LOW RISK' '<= 40 HIGH RISK' Performed By: #### 2 888742, 8410812, 811947563, 1202202, 2404606, 275185540, 75468859, 9675418, 0189694 #### [facility] [address] [place] [address] Cholesterol in LDL [Mass/Vol] 55 mg/dL Normal <=129 [facility] Comment on above: Performed By: #### 2 853719, 7884650, 916612250, 1535016, 7606712, 123588473, 44867429, 9143167, 1442825 #### [facility] [address] [place] [address] Cholesterol in VLDL [Mass/Vol] 14 mg/dL Normal 7-40 [facility] Comment on above: Performed By: #### 2 972601, 5350519, 960370717, 7499600, 5490901, 457465821, 01402685, 6223688, 5065234 #### [facility] [address] [place] [address] Triglyceride [Mass/Vol] 69 mg/dL Normal <=149 [facility] Comment on above: Performed By: #### 2 704046, 1694276, 140924150, 6418304, 7295284, 092729201, 68476001, 3199999, 4276983 #### [facility] [address] [place] [address] TSHon 06-23-2023 TSH Qn 2.02 m[IU]/L Normal 0.34-5.60 [facility] Comment on above: Performed By: #### 2 672526, 5707451, 683596476, 4956285, 4518878, 854440642, 85013320, 9181148, 9687789 #### [facility] [address] [place] [address] U Microalbon 06-23-2023 Albumin DL <= 20 mg/L (U) [Mass/Vol] 1.8 mg/dL Normal 0.0-1.9 [facility] Comment on above: Performed By: #### 1 1920553, 93454453, 3555543 ####[facility] [address] [place] [address] UA With Cult Reflexon 2023 Bacteria LM Ql (Urine sed) TRACE Normal Trace [facility] Comment on above: Performed By: #### 1 2686690, 56602001, 9592978 ####[address] [place] [address] Bilirubin Ql (U) Negative Normal Negative [facility] Comment on above: Performed By: #### 1 9722032, 09324307, 8726567 ####[address] [address] Clarity (U) CLEAR Normal Clear [facility] Comment on above: Performed By: #### 1 9491492, 71806561, 3997702 ####[facility] [address] [place] [address] Color (U) YELLOW Normal Yellow [facility] Comment on above: Performed By: #### 1 2347937, 25967831, 5013292 ####[address] [address] Epithelial cells.squamous LM.HPF (Urine sed) [#/Area] 0-2 Normal 0-2 [facility] Comment on above: Performed By: #### 1 2236260, 22780663, 5752203 ####[facility] [address] [place] [address] Glucose Test strip (U) [Mass/Vol] TRACE Abnormal Negative [facility] Comment on above: Performed By: #### 1 8155014, 45143088, 7276168 ####[facility] [address] [place] [address] Hemoglobin Ql (U) Negative Normal Negative [facility] Comment on above: Performed By: #### 1 0632710, 40209827, 0945374 ####[place] [address] Ketones (U) [Mass/Vol] Negative Normal Negative [facility] Comment on above: Performed By: #### 1 4712673, 53395959, 4825001 ####[place] [address] [place].plasma/Lithiu m.RBC (Bld) [Mass ratio] 0-3 Normal 0-3 [facility] Comment on above: Performed By: #### 1 2003164, 63573607, 8168439 ####[place] [address] Mucus Ql (Urine sed) TRACE Normal Fish [facility] Comment on above: Performed By: #### 1 2721366, 92816021, 2085413 ####[place] [address] Nitrite Ql (U) Negative Normal Negative [facility] Comment on above: Performed By: #### 1 7431307, 45490052, 3336254 ####[place] [address] pH (U) 6.5 [pH] Invalid Interpretation Code 5.0-9.0 [facility] Comment on above: Performed By: #### 1 7955069, 31123531, 2746499 ####[place] [address] Protein (U) [Mass/Vol] Negative Normal Negative [facility] Comment on above: Performed By: #### 1 9355776, 84482246, 7752650 ####[place] [address] Specific gravity (U) [Rel density] 1.015 Invalid Interpretation Code 1.005-1.030 [facility] Comment on above: Performed By: #### 1 3971228, 54126712, 9048365 ####[address] [address] Type of Urine collection method Clean Catch Normal [facility] Comment on above: Performed By: #### 1 9301103, 94645230, 3304932 ####[facility] [address] [place] [address] Urobilinogen Qn (U) 0.2 {Lakeshia'U}/dL Normal 0.0-1.0 [facility] Comment on above: Performed By: #### 1 3444093, 16325757, 8511380 ####[facility] [address] [place] [address] WBC Auto Ql (U) 1+ Abnormal Negative [facility] Comment on above: Performed By: #### 1 0828719, 80231212, 6566024 ####[facility] [address] [place] [address] WBC LM.HPF (Urine sed) [#/Area] 0-5 Normal 0-5 [facility] Comment on above: Performed By: #### 1 8381511, 91069771, 7177801 ####[facility] [address] [place] [address] URINALYSISOrdered By: Darrel Ward on 06-23-2023 Bacteria LM Ql (Urine sed) Trace /HPF Normal Trace/HPF FT UA Auto SS Bilirubin Ql (U) Negative (06/23/23 6:21 AM) Normal Negative [facility] UA Auto SS Clarity (U) Clear (06/23/23 6:21 AM) Normal Clear [facility] UA Auto SS Color (U) Yellow (06/23/23 6:21 AM) Normal Yellow [facility] UA Auto SS Epithelial cells.squamous LM.HPF (Urine sed) [#/Area] 0-2 /HPF Normal 0-2/HPF [facility] UA Aut o SS Glucose Test strip (U) [Mass/Vol] Trace *ABN* (06/23/23 6:21 AM) Invalid Interpretation Code Negative [facility] UA Auto SS Hemoglobin Ql (U) Negative (06/23/23 6:21 AM) Normal Negative [facility] UA Auto SS Ketones (U) [Mass/Vol] Negative (06/23/23 6:21 AM) Normal Negative [facility] UA Auto SS [place].plasma/Lithiu m.RBC (Bld) [Mass ratio] 0-3 /HPF Normal 0-3/HPF [facility] UA Auto SS Mucus Ql (Urine sed) Trace (06/23/23 6:21 AM) Normal [facility] UA Auto SS Nitrite Ql (U) Negative (06/23/23 6:21 AM) Normal Negative [facility] UA Auto SS pH (U) 6.5 *NA* (06/23/23 6:21 AM) Invalid Interpretation Code 5.0 - 9.0 [facility] UA Auto SS Protein (U) [Mass/Vol] Negative (06/23/23 6:21 AM) Normal Negative [facility] UA Auto SS Specific gravity (U) [Rel density] 1.015 *NA* (06/23/23 6:21 AM) Invalid Interpretation Code 1.005 - 1.030 [facility] UA Auto SS UA Spec Desc Clean Catch (06/23/23 6:21 AM) Normal [facility] UA Auto SS Urobilinogen Qn (U) 0.7855246 {Lakeshia'U}/dL Normal 0.0 - 1.0 EU/dL [facility] UA Auto SS WBC Auto Ql (U) 1+ *ABN* (06/23/23 6:21 AM) Invalid Interpretation Code Negative [facility] UA Auto SS WBC LM.HPF (Urine sed) [#/Area] 0-5 /HPF Normal 0-5/HPF [facility] UA Auto SS Vit B12on 06-23-2023 Cobalamin (Vitamin B12) [Mass/Vol] 282 pg/mL Normal 50-1500 [facility] Comment on above: Performed By: #### 2 914217, 0324517, 788494496, 2088290, 1412627, 055081879, 08725547, 3032160, 5548803 #### [facility] [address] [place] [address] Vitamin D 25 Hydroxyon 06-22 25-hydroxyvitamin D3 [Mass/Vol] 37.1 ng/mL Normal 30.0-100.0 [facility] Comment on above: Performed By: #### 2 664149, 8089355, 155884758, 6993682, 9120409, 251076136, 21702055, 0766228, 5837726 ####[facility] [address] [place] [address] eGFRon 06-23-2023 eGFR 54 mL/min/1.73 m2 Low >=59 [facility] Comment on above: Order Comment: Order added by Discern Expert. Performed By: #### 2 837863, 1058976, 609259482, 0329675, 9490477, 407148976, 11978373, 1870411, 5475966 #### [facility] [address] [place] [address] Ambulatory Visit Summaryon 0 06-22-2023 Ambulatory Visit Summary SABINA CANELA :1950 Visit Date:06/22/2023 Ambulatory Visit Instructions Your Diagnosis Type 2 diabetes mellitus with hyperglycemia Type 2 diabetes mellitus with hypercholesterolemia Type 2 diabetes mellitus with stage 3a chronic kidney disease Stage 3a chronic kidney disease (CKD), Chronic kidney disease, stage 3a Long-term insulin use Morbid obesity Former smoker Primary hypertension Hypothyroid Fatigue Pure hypercholesterolemia, unspecified Your Care Team Attending Physician - Marvin Husain PA-C Primary Care Physician - Marvin Husain PA-C This Is Your Medications List Misc Prescription (Alcohol swabs, Kinde, band-aids) Misc Prescription (Glucometer) Misc Prescription (Lancet #100) Misc Prescription (Test Strips) amlodipine (amLODIPine 5 mg Tab) atorvastatin (Lipitor 40 mg Tab) ergocalciferol (ergocalciferol 50,000 intl units Cap) fluconazole (fluconazole 150 mg Tab) folic acid (folic acid 1 mg Tab) glimepiride (glimepiride 4 mg Tab) insulin glargine (Basaglar KwikPen 100 units/mL subcutaneous solution) levothyroxine (levothyroxine 88 mcg (0.088 mg) Tab) memantine (Namenda 10 mg oral tablet) mirabegron (Myrbetriq 50 mg oral tablet, extended release) nystatin topical (nystatin Top 100,000 units/g Pwdr) propranolol (propranolol 120 mg Cap-ER) ropinirole (Requip 0.25 mg Tab) trazodone (traZODONE 50 mg Tab) triamcinolone topical (triamcinolone Top 0.025% Crm) Procedures Performed Tubal ligation. Discharge Vitals Temperature (Temporal Artery) 36.6 ?C Heart Rate (Peripheral) 67 Respiratory Rate 18 Blood Pressure 118/72 Height 157 cm Height 62 in Weight 93.4 kg Weight 205.48 lb BMI 37.89 What to do next Scheduled Follow-Up Appointments Thursday 8:00 AM EDT With: Marvin Husain PA-C Where: [facility] [place] Normal [address] [place] [address]- \.br\ You Need to Schedule the Following Appointments\.b r\ Follow Up with Marvin Husain PA-C When: In 3 months\.br\ Comments:\.br\ FU for DM, HTN, HLD\.br\ Where:\.br\ [address]\ [place] [address]-\.br\ [id number]\.br\ Medications\.br \ What How Much When Why Instructions\.b r\ Unchanged amlodipine (amLODIPine 5 mg Tab) 1 Tablets By Mouth Every day\.br\ Unchanged atorvastatin (Lipitor 40 mg Tab) 1 Tablets By Mouth Every day\.br\ Unchanged ergocalciferol (ergocalciferol 50,000 intl units Cap) 1 Capsules By Mouth Every week\.br\ Unchanged fluconazole (fluconazole 150 mg Tab) 1 Tablets By Mouth Every 7 days\.br\ Unchanged folic acid (folic acid 1 mg Tab) 1 Tablets By Mouth Every day\.br\ Unchanged glimepiride (glimepiride 4 mg Tab) 1 Tablets By Mouth Every day\.br\ Unchanged insulin glargine (Basaglar KwikPen 100 units/ mL subcutaneous solution) inject 30 units subcutaneously once daily \.br\ Unchanged levothyroxine (levothyroxine 88 mcg (0.088 mg) Tab) 1 Tablets By Mouth Every day take 1 tablet by mouth every morning ON AN EMPTY STOMACH \.br\ Unchanged memantine (Namenda 10 mg oral tablet) 1 Tablets By Mouth 2 times a day\.br\ Unchanged mirabegron (Myrbetriq 50 mg oral tablet, extended release) 1 Tablets By Mouth Every day\.br\ Unchanged Misc Prescription (Alcohol swabs, Jose F, band-aids) 0 Type 2 diabetes mellitus with hyperglycemia Duration: 30 Days Diabetic supply for a month with 2 refills \.br\ Unchanged Misc Prescription (Glucometer) 0 Type 2 diabetes mellitus with hyperglycemia\. br\ Unchanged Misc Prescription (Lancet #100) 0 Type 2 diabetes mellitus with hyperglycemia Diagnoses diabetes. 3 month supplies \.br\ Unchanged Misc Prescription (Test Strips) See instructions To be used daily with blood sugars checks. Dx: E11.9 \.br\ Unchanged nystatin topical (nystatin Top 100,000 units/ g Pwdr) 1 Application Topical 2 times a day\.br\ Unchanged propranolol (propranolol 120 mg Cap-ER) 1 Capsules By Mouth Every day\.br\ Unchanged ropinirole (Requip 0.25 mg Tab) 1 Tablets By Mouth Every day\.br\ Unchanged trazodone (traZODONE 50 mg Tab) 1 Tablets By Mouth Once a day (at bedtime) take 1 tablet by mouth nightly \.br\ Unchanged triamcinolone topical (triamcinolone Top 0.025% Crm) See instructions apply 1-2 times a day \.br\ Allergies\.br\ amoxicillin (Anaphylaxis)\. br\ Problems\.br\ Ongoing - Any problem that you are currently receiving treatment for.\.br\ Anxiety\.br\ BMI 37.0-37.9, adult\.br\ Former smoker\.br\ Hypercholestero lemia\.br\ Hypothyroid\.br \ Long-term insulin use\.br\ Morbid obesity\.br\ Primary hypertension\.b r\ Stage 3a chronic kidney disease (CKD)\.br\ Type 2 diabetes mellitus with hypercholestero lemia\.br\ Type 2 diabetes mellitus with hyperglycemia\. br\ Type 2 diabetes mellitus with stage 3a chronic kidney disease\.br\ Urgency incontinence\.b r\ Historical - Any problem that you are no longer receiving treatment for.\.br\ Diabetes\.br\ Smoker\.br\ Patient Survey\.br\ You may receive a survey via text or e-mail asking about your office visit. Please share your experience with us by completing your survey. We appreciate your feedback and thank you for choosing us for your care.\.br\ \.br\ [facility] Patient Educationon 06-22-19 Patient Education Immunology Fatigue If you have fatigue, you feel tired all the time and have a lack of energy or a lack of motivation. Fatigue may make it difficult to start or complete tasks because of exhaustion. Occasional or mild fatigue is often a normal response to activity or life. However, long-term (chronic) or extreme fatigue may be a symptom of a medical condition such as: ? Depression. ? Not having enough red blood cells or hemoglobin in the blood (anemia). ? A problem with a small gland located in the lower front part of the neck (thyroid disorder). ? Rheumatologic conditions. These are problems related to the body's defense system (immune system). ? Infections, especially certain viral infections. Fatigue can also lead to negative health outcomes over time. Follow these instructions at home: Medicines ? Take mwki-ofu-ozlxvcw and prescription medicines only as told by your health care provider. ? Take a multivitamin if told by your health care provider. ? Do not use herbal or dietary supplements unless they are approved by your health care provider. Eating and drinking ? Avoid heavy meals in the evening. ? Eat a well-balanced diet, which includes lean proteins, whole grains, plenty of fruits and vegetables, and low-fat dairy products. ? Avoid eating or drinking too many products with caffeine in them. ? Avoid alcohol. ? Drink enough fluid to keep your urine pale yellow. Activity ? Exercise regularly, as told by your health care provider. ? Use or practice techniques to help you relax, such as yoga, doni chi, meditation, or massage therapy. Lifestyle ? Change situations that cause you stress. Try to keep your work and personal schedules in balance. ? Do not use recreational or illegal drugs. General instructions ? Monitor your fatigue for any changes. ? Go to bed and get up at the same time every day. ? Avoid fatigue by pacing yourself during the day and getting enough sleep at night. ? Maintain a healthy weight. Contact a health care provider if: ? Your fatigue does not get better. ? You have a fever. ? You suddenly lose or gain weight. ? You have headaches. ? You have trouble falling asleep or sleeping through the night. ? You feel angry, guilty, anxious, or sad. ? You have swelling in your legs or another part of your body. Get help right away if: ? You feel confused, feel like you might faint, or faint. ? Your vision is blurry or you have a severe headache. ? You have severe pain in your abdomen, your back, or the area between your waist and hips (pelvis). ? You have chest pain, shortness of breath, or an irregular or fast heartbeat. ? You are unable to urinate, or you urinate less than normal. ? You have abnormal bleeding from the rectum, nose, lungs, nipples, or, if you are female, the vagina. ? You vomit blood. ? You have thoughts about hurting yourself or others. These symptoms may be an emergency. Get help right away. Call 911. ? Do not wait to see if the symptoms will go away. ? Do not drive yourself to the hospital. Get help right away if you feel like you may hurt yourself or others, or have thoughts about taking your own life. Go to your nearest emergency room or: ? Call 911. ? Call the National Suicide Prevention Lifeline at or 061. This is open 24 hours a day. ? Text the Crisis Text Line at 383250. Summary ? If you have fatigue, you feel tired all the time and have a lack of energy or a lack of motivation. ? Fatigue may make it difficult to start or complete tasks because of exhaustion. ? Long-term (chronic) or extreme fatigue may be a symptom of a medical condition. ? Exercise regularly, as told by your health care provider. ? Change situations that cause you stress. Try to keep your work and personal schedules in balance. This information is not intended to replace advice given to you by your health care provider. Make sure you discuss any questions you have with your health care provider. Document Revised: 01/13/2022 Document Reviewed: 01/13/2022 [employer] Patient Education ? 2022 [employer] [facility] BD Bone Density DEXAon 04-07 BD Bone Density DEXA Exam Date/Time: 04/01/2023 09:47 EST Reason for Exam: E28.39;Menopausal Report IMPRESSION: OSTEOPENIA. The 10 year probability (FRAX) of a major osteoporotic fracture based on the left femoral neck bone marrow density is: 9.7%, and hip fracture 1.6%. EXAM: BD Bone Density DEXA DATE: 04/01/2023 9:32 AM CLINICAL HISTORY: Menopausal, E28.39. COMPARISON: None available. COMMENTS: The lumbar spine and both hips were scanned. The mean bone mineral density from L1 to L4 is 1.615 g/cm2 and this value is 3.6 standard of deviation above the standard reference value for a young adult. Bone mineral density of the left femoral neck is 0.798 g/cm2 and this value is -1.7 standard of deviation below the standard reference value. Bone mineral density of the right femoral neck is 0.940 g/cm2 and this value is -0.7 standard of deviation below the standard reference value. These values meet WHO criteria for osteopenia. RECOMMENDATIONS: 1. All patients should optimize her calcium and vitamin D intake. 2. Consider FDA-approved medical therapies in postmenopausal women and minimal age 50 years and older, based on the following: - hip or vertebral (clinical or morphometric) fracture. - T-score less than or equal to -2.5 at the femoral neck or spine after the appropriate evaluation to exclude secondary causes. - Low bone density (T score between -1.0 and -2.5 at the femoral neck or spine) and a 10 year probability of hip fracture greater than or equal to 3% or a 10-year probability of a major osteoporosis-related fracture greater than or equal to 20% based on FRAX calculation. - Clinician judgment and/or patient preferences may indicate treatment for palpable attenuation fracture probability is above or below these levels. - Further guidance on treatment can be found at the National Osteoporosis Foundation's website: bonesource.org Report 3. Patients with diagnosis of osteoporosis or high risk for fracture. There are irregular bone mineral density tests. For patients eligible for Medicare, routine testing is allowed once every 2 years. Testing frequency can be increased to 1 year for patient's history of rapidly progressing disease, those who are receiving or discontinuing medical therapy to restore bone mass or have additional risk factors. Ordering Provider: Marvin Husain FINAL REPORT Dictated: 04/07/2023 3:56 pm Humza Loving MD Signed (Electronic Signature): 04/07/2023 3:56 pm Signed by: Humza Loving MD Transcribed by: CHAGO Technologist: ALMITA [facility] Consent for Treatmenton 03-07 Consent for Treatment [id number] [facility] CHEMISTRYOrdered By: Chuy la on 12-23-2022 Albumin [Mass/Vol] 3.9 g/dL Normal 3.3 - 5.0 gm/dL F [facility] Remisol Albumin DL <= 20 mg/L (U) [Mass/Vol] 6.3 microgram/mL Normal 0.0 - 19.0 mcg/mL [facility] Remisol Albumin Elph (U) [Mass fraction] mg/dL Invalid Interpretation Code [facility] Remisol Albumin/Globulin [Mass ratio] 1.2 {ratio} Normal 1.1 - 2.2 [facility] Remisol ALP [Catalytic activity/Vol] 76 [iU]/d Normal 21 - 98 Int._Unit/L [facility] Remisol ALT No additional P-5'-P [Catalytic activity/Vol] 30 [iU]/d Normal 6 - 46 Int._Unit/L [facility] Remisol Anion gap [Moles/Vol] 9 mmol/L Normal 6 - 16 mEq/L F [facility] Remisol AST [Catalytic activity/Vol] 36 [iU]/d Normal 5 - 43 Int._Unit/L [facility] Remisol Bilirubin [Mass/Vol] 0.4 mg/dL Normal 0.0 - 1.1 mg/dL [facility] Remisol Calcium [Mass/Vol] 10.0 mg/dL Normal 8.9 - 11. 1 mg/dL [facility] Remisol Chloride [Moles/Vol] 105 mmol/L Normal 101 - 1 11 mmol/L [facility] Remisol CO2 [Moles/Vol] 26 mmol/L Normal 21 - 31 mmol/L [facility] Remisol Creatinine (U) [Mass/Vol] 30.4 mg/dL Invalid Interpretation Code [facility] Remisol Creatinine [Mass/Vol] 1.1 mg/dL Normal 0.5 - 1.3 mg/d L [facility] Remisol Free T4 [Mass/Vol] 1.77 ng/dL High 0.58 - 1. 64 ng/dL [facility] Remisol Globulin (S) [Mass/Vol] 3.4 g/dL Normal 1.4 - 4.0 gm/dL FT Remisol Glucose [Mass/Vol] 110 mg/dL Normal 55 - 199 mg/dL FT Remisol Potassium [Moles/Vol] 4.3 mmol/L Normal 3.5 - 5.3 mmol/L FT Remisol Protein [Mass/Vol] 7.3 g/dL Normal 6.0 - 7.8 gm/dL F [facility] Remisol Sodium [Moles/Vol] 136 mmol/L Normal 135 - 145 mmol/L FT Remisol TSH Qn 2.62 m[IU]/L Normal 0.34 - 5.60 mcIU/mL FT Remisol U Prot/Creat Ratio [facility] [[email or web address] Invalid Interpretation Code 0.00 - 200.00 FT Remisol Urea nitrogen [Mass/Vol] 14 mg/dL Normal 5 - 21 mg/dL FT Remisol Urea nitrogen/Creatinine [Mass ratio] 13 mg/mg Normal 10 - 20 FT Remisol CHEMISTRYOrdered By: [employer] SYSTEM on 12-23-2022 GFR/1.73 sq M.predicted among non-blacks MDRD (S/P/Bld) [Vol rate/Area] 54 mL/min/1.73 m2 Low >=59mL/min/1.73 m2 [facility] Chem S CHEMISTRYOrdered By: Hakeem douglass on 12-23-2022 HbA1c (Bld) [Mass fraction] 7.7 % High <=5.9% [facility] ChemAutoSS HEMATOLOGYOrdered By: SYSTEM SYSTEM on 12-23-2022 Basophils/100 WBC (Bld) 0.4 % Normal 0.0 - 2.0 % FT HemeAutoSS Basophils/Leukocytes Auto (Bld) [Pure # fraction] 0.0 E9/L Normal 0.0 - 0.2 E9/L FT HemeAutoSS Eosinophils/100 WBC (Bld) 2.4 % Normal 0.0 - 8.0 % FT HemeAutoSS Eosinophils/Leukocyte s Auto (Bld) [Pure # fraction] 0.2 E9/L Normal 0.0 - 0.5 E9/L FT HemeAutoSS Lymphocytes/100 WBC (Bld) 25.7 % Normal 14.0 - 50.0 % [facility] Lymphocytes/Leukocyte s Auto (Bld) [Pure # fraction] 2.0 E9/L Normal 1.0 - 4.0 E9/L [facility] Monocytes/100 WBC (Bld) 8.3 % Normal 4.0 - 14.0 % [facility] Monocytes/Leukocytes Auto (Bld) [Pure # fraction] 0.7 E9/L Normal 0.2 - 1.0 E9/L [facility] Neutrophils/100 WBC (Bld) 63.2 % Normal 36.0 - 75.0 % [facility] Neutrophils/Leukocyte s Auto (Bld) [Pure # fraction] 5.0 E9/L Normal 2.0 - 7.5 E9/L [facility] HEMATOLOGYOrdered By: Henny Ceballos on 12-23-2022 Erythrocyte distribution width (RBC) [Ratio] 13.4 % Normal 10.9 - 14.2 % [facility] Hematocrit (Bld) [Volume fraction] 38.8 % Normal 34.0 - 46.0 % [facility] Hemoglobin (Bld) [Mass/Vol] 13.2 g/dL Normal 12.0 - 16.0 gm/dL [facility] MCH (RBC) [Entitic mass] 29.9 pg Normal 27.0 - 34.0 pg [facility] MCHC (RBC) [Mass/Vol] 33.9 g/dL Normal 31.4 - 36.0 gm/dL [facility] MCV (RBC) [Entitic vol] 88.3 fL Normal 80.0 - 100.0 fL [facility] Platelet mean volume (Bld) [Entitic vol] 10.2 fL Normal 6.4 - 10.8 fL [facility] Platelets (Bld) [#/Vol] 198.0 E9/L Normal 150.0 - 500.0 E9/L [facility] RBC (Bld) [#/Vol] 4.4 E12/L Normal 4.3 - 5.9 E12/L [facility] WBC corrected for nucl RBC Auto (Bld) [#/Vol] 7.9 E9/L Normal 4.0 - 11.0 E9/L [facility] Lupus Anticoagulanton 2022 Dilute Cy Viper Negative Normal [facility] Comment on above: Performed By: #### P ROSAC, AT3A, PROCAC, B2GGM, FA8 #### [facility] [address] [place] [address] Website Admin: Dallin Avalos MD #### APROTS, AF5MUT, APTMUT #### [facility] [address] [place] [address] Website Admin: Carloz Sherwood MD #### LUPPRO #### [address] [address] Website Admin: Dallin Avalos MD [facility] [address] [place] [address] [place] [address] Website Admin: Juan Chong MD Factor V Mutationon 11-24-19 23 F 5 SPECIMEN Whole Blood Normal [facility] Comment on above: Performed By: #### P ROSAC, AT3A, PROCAC, B2GGM, FA8 #### [address] [address] Website Admin: Dallin Avalos MD #### APRORANDOLPH, AF5MUT, APTMUT #### [facility] [address] [place], [place] [id number] Website Admin: Carloz Sherwood MD #### LUPPRO #### [address] [address] Website Admin: Dallin Avalos MD [facility] [address] [place] [address] [place] [address] Website Admin: Juan Chong MD FACTOR 5 MUTATION Negative Normal [facility] Comment on above: Result Comment: (NOT E) Indication for testing: Assess genetic risk for thrombosis. NEGATIVE: The factor V Leiden variant, c.1601G>A; p.[id number], was not detected. This does not exclude a genetic cause for thrombophilia. If this individual has had a previous venous thromboembolism, this negative result is unlikely to significantly reduce the risk for recurrence; thus, future clinical management to reduce recurrence should not be altered. This result has been reviewed and approved by Sandi Zapata M.D. BACKGROUND INFORMATION: Factor V Leiden (F5) R506Q Mutation CHARACTERISTICS: Venous thromboembolism (VTE) is multifactorial caused by a combination of genetic and environmental factors. The Factor V Leiden (FVL) variant is the most common cause of inherited VTEs, accounting for over 90 percent of activated protein C (APC) resistance. Because the FVL variant eliminates the APC cleavage site, factor V is inactivated slower, thus persisting longer in blood circulation, leading to more thrombin production. Other genetic risk factors for VTE include, male sex and variants in antithrombin, protein C, protein S, or factor XIII. Non-genetic risk factors include, age, smoking, prolonged immobilization, malignant neoplasms, surgery, , oral contraceptives, estrogen replacement therapy, tamoxifen and raloxifene therapy. INCIDENCE OF FACTOR V LEIDEN VARIANT: Approximately 5 percent of Caucasians, 2 percent of Hispanics, 1 percent of Americans and 0.5 percent of Asians are heterozygous; homozygosity occurs in 1 in 1500 Caucasians. INHERITANCE: Semi-dominant; both heterozygotes and homozygotes are at increased risk for VTE. PENETRANCE: Lifetime risk of VTE is 10 percent for heterozygotes and 80 percent of homozygotes. 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 Legacy nomenclature: R506Q (1691G>A) CLINICAL SENSITIVITY: 20-50 percent of individuals with an isolated VTE have the FVL variant. METHODOLOGY: Polymerase chain reaction and fluorescence monitoring. ANALYTICAL SENSITIVITY AND SPECIFICITY: 99 percent. LIMITATIONS: Diagnostic errors can occur due to rare sequence variations. F5 gene mutations, other than p.[id number], will not be detected. This test was developed and its performance characteristics determined by [facility]. It has not been cleared or approved by the [place] Food and Drug Administration. This test was performed in a CLIA certified laboratory and is intended for clinical purposes. Counseling and informed consent are recommended for genetic testing. Consent forms are available online. Performed By: [facility] [address] [place] [address] City Assessor: Jayy Ponce MD, PhD CLIA Number: [id number] Performed By: #### P ROSAC, AT3A, PROCAC, B2GGM, FA8 #### [facility] [address] [place] [address] Website Admin: Dallin Avalos MD #### APROTS, AF5MUT, APTMUT #### [facility] [address] [place] [address] Website Admin: Carloz Sherwood MD #### LUPPRO #### [facility] [address] [place] [address] Website Admin: Dallin Avalos MD [facility] [address] [place] [address] Website Admin: Juan Chong MD PT Mutation [id number] 11-24-19 23 PT [id number] VARIANT Negative Normal [facility] Comment on above: Result Comment: (NOT E) Indication for testing: Assess genetic risk for thrombosis. NEGATIVE: The Factor II, prothrombin M76251S mutation, was not detected. Other causes of elevated prothrombin levels and hereditary forms of venous thrombosis have not been excluded. Recommendations: If clinically indicated, testing for other inherited or acquired thrombophilic disorders is recommended including DNA testing for the factor V Leiden mutation, measurement of total plasma homocysteine concentration, serological assays for anticardiolipin antibodies, multiple phospholipid-dependent coagulation assays for lupus inhibitor, protein C activity, protein S activity or free protein S antigen, and antithrombin activity. This result has been reviewed and approved by Sandi Zapata M.D. BACKGROUND INFORMATION: Prothrombin (F2) c.*97G>A (V49234X) Pathogenic Variant CHARACTERISTICS: The Factor II, c.*97G>A (V71597O) pathogenic variant is a common genetic risk factor for venous thrombosis associated with elevated prothrombin levels leading to increased rates of thrombin generation and excessive growth of fibrin clots. The expression of Factor II thrombophilia is impacted by coexisting genetic thrombophilic disorders, acquired thrombophilic disorders (eg, malignancy, hyperhomocysteinemia, high factor VIII levels), and circumstances including: , oral contraceptive use, hormone replacement therapy, selective estrogen receptor modulators, travel, central venous catheters, surgery, and organ transplantation. INCIDENCE: Approximately 2 percent of Caucasians and 0.3 percent of Americans are heterozygous; homozygosity occurs in 1 in 10,000 individuals. INHERITANCE: Incomplete autosomal dominant. PENETRANCE: The risk of thrombosis is increased 2-4 fold for heterozygotes and further increased for homozygotes. CAUSE: Homozygosity or heterozygosity for F2 c.*97G>A (Q54433C). PATHOGENIC VARIANT TESTED: F2 c.*97G>A (S65558E). CLINICAL SENSITIVITY FOR VENOUS THROMBOSIS: Approximately 10 percent. METHODOLOGY: Polymerase chain reaction and fluorescence monitoring. ANALYTICAL SENSITIVITY AND SPECIFICITY: 99 percent. LIMITATIONS: Diagnostic errors can occur due to rare sequence variations. F2 gene variants, other than c.*97G>A (P22291P), will not be detected. This test was developed and its performance characteristics determined by [facility]. It has not been cleared or approved by the [place] Food and Drug Administration. This test was performed in a CLIA certified laboratory and is intended for clinical purposes. Counseling and informed consent are recommended for genetic testing. Consent forms are available online. Performed By: [facility] [address] [place] [address] City Assessor: Jayy Ponce MD, PhD [place] Number: [id number] Performed By: #### P ROSAC, AT3A, PROCAC, B2GGM, FA8 #### [address] [address] Website Admin: Dallin Avalos MD #### APRORANDOLPH, AF5MUT, APTMUT #### [address] [id number] Website Admin: Carloz Sherwood MD #### LUPPRO #### [address] [address] Website Admin: Dallin Avalos MD [facility] [address] [place] [address] Website Admin: Juan Chong MD PT PCR SPECIMEN Whole Blood Normal [facility] Comment on above: Performed By: #### P ROSAC, AT3A, PROCAC, B2GGM, FA8 #### [facility] [address] [place] [address] Website Admin: Dallin Avalos MD #### APROTS, AF5MUT, APTMUT #### [facility] [address] [place] [address] Website Admin: Carloz Sherwood MD #### LUPPRO #### [address] [address] Website Admin: Dallin Avalos MD [facility] [address] [place] [address] [place] [address] Website Admin: Juan Chong MD Antithrombin III [place] 11-20 Antithrombin III Act 96 % Normal 83-122 [facility] Comment on above: Result Comment: Patients receiving Hirudin may have a falsely decreased Antitrombin III Activity. Performed By: #### P ROSAC, AT3A, PROCAC, B2GGM, FA8 #### [address] [address] Website Admin: Dallin Avalos MD #### BE, AF5MUT, APTMUT #### [facility] [address] [place] [address] Website Admin: Carloz Sherwood MD #### LUPPRO #### [address] [address] Website Admin: Dallin Avalos MD [facility] [address] [place] [address] [place] [address] Website Admin: Juan Chong MD Factor VIII Activityon 11-20 Factor VIII Activity 207 % High 50-150 [facility] Comment on above: Performed By: #### P ROSAC, AT3A, PROCAC, B2GGM, FA8 #### [facility] [address] [place] [address] Website Admin: Dallin Avalos MD #### APROTS, AF5MUT, APTMUT #### [facility] [address] [place] [address] Website Admin: Carloz Sherwood MD #### LUPPRO #### [address] [place] [address] Website Admin: Dallin Avalos MD [facility] [address] [place] [address] [place] [address] Website Admin: Juan Chong MD Protein C Activityon 023 Protein C Activity 91 % Normal >80 [facility] Comment on above: Result Comment: Patients on warfarin will have decreased functional protein C/S values. Warfarin therapy should be discontinued for two weeks for accurate measurement of functional protein C/S levels. Artifactually elevated levels of functional protein C/S may be seen in patients receiving heparin,rivaroxaban,apixaban,edozaban,and dabiqatran. Decreased functionality may be seen in patients with abnormally elevated levels of Factor VIII. Performed By: #### P ROSAC, AT3A, PROCAC, B2GGM, FA8 #### [facility] [address] [place] [address] Website Admin: Dallin Avalos MD #### APROTS, AF5MUT, APTMUT #### [facility] [address] [place] [address] Website Admin: Carloz Sherwood MD #### LUPPRO #### [facility] [address] [place] [address] Website Admin: Dallin Avalos MD [facility] [address] [place] [address] [place] [address] Website Admin: Juan Chong MD Protein S Activityon 023 Protein S Activity 97 % Normal 59-130 [facility] Comment on above: Result Comment: Patients on warfarin will have decreased functional protein C/S values. Warfarin therapy should be discontinued for two weeks for accurate measurement of functional protein C/S levels. Artifactually elevated levels of functional protein C/S may be seen in patients receiving heparin,rivaroxaban,apixaban,edozaban,and dabiqatran. Decreased functionality may be seen in patients with abnormally elevated levels of Factor VIII. Performed By: #### P ROSAC, AT3A, PROCAC, B2GGM, FA8 #### [facility] [address] [place] [address] Website Admin: Dallin Avalos MD #### APROTS, AF5MUT, APTMUT #### [facility] [address] [place] [address] Website Admin: Carloz Sherwood MD #### LUPPRO #### [facility] [address] [place] [address] Website Admin: Dallin Avalos MD [facility] [address] [place] [address] Website Admin: Juan Chong MD B2 Glycoprotein G,Mon 2022 B2 Glycoprot I, IgG <0.6 Normal 0.0-7.0 [facility] Comment on above: Result Comment: Reference Range: <7.0 Negative 7.0-10.0 Equivocal >10.0 Positive Performed By: #### P ROSAC, AT3A, PROCAC, B2GGM, FA8 #### [facility] [address] [place] [address] Website Admin: Dallin Avalos MD #### APRORANDOLPH, AF5MUT, APTMUT #### [facility] [address] [place] [address] Website Admin: Carloz Sherwood MD #### LUPPRO #### [facility] [address] [place] [address] Website Admin: Dallin Avalos MD [facility] [address] [place] [address] Website Admin: Juan Chong MD B2 Glycoprot I, IgM <0.9 Normal 0.0-7.0 [facility] Comment on above: Result Comment: Reference Range: <7.0 Negative 7.0-10.0 Equivocal >10.0 Positive Performed By: #### P ROSAC, AT3A, PROCAC, B2GGM, FA8 #### [facility] [address] [place] [address] Website Admin: Dallin Avalos MD #### APROTS, AF5MUT, APTMUT #### [facility] [address] [place], [place] [id number] Website Admin: Carloz Sherwood MD #### LUPPRO #### [address] [address] Website Admin: Dallin Avalos MD [facility] [address] [place] [address] [place] [address] Website Admin: Juan Chong MD Lupus Anticoagulanton 2022 Anticardiolipin IgA 7.7 APL Normal 0.0-14.0 [facility] Comment on above: Result Comment: Reference Range: <14.0 Negative 14.0-20.0 Equivocal >20.0 Positive When results are Equivocal, it is recommended to retest after 4-6 weeks. Performed By: #### P ROSAC, AT3A, PROCAC, B2GGM, FA8 #### [address] [address] Website Admin: Dallin vAalos MD #### BE, AF5MUT, APTMUT #### [facility] [address] [place] [address] Website Admin: Carloz Sherwood MD #### LUPPRO #### [address] [address] Website Admin: Dallin Avalos MD [address] [place] [address] Website Admin: Juan Chong MD Anticardiolipin IgG 1.7 GPL Normal 0.0-10.0 [facility] Comment on above: Result Comment: Reference Range: <10.0 Negative 10.0-40.0 Equivocal >40.0 Positive Performed By: #### P ROSAC, AT3A, PROCAC, B2GGM, FA8 #### [address] [address] Website Admin: Dallin Avalos MD #### APROTS, AF5MUT, APTMUT #### [address] [id number] Website Admin: Carloz Sherwood MD #### LUPPRO #### [address] [address] Website Admin: Dallin Avalos MD [facility] [address] [place] [address] Dr. [place], [place] [phone] Website Admin: Juan Chong MD Anticardiolipin IgM 2.9 MPL Normal 0.0-10.0 [facility] Comment on above: Result Comment: Reference Range: <10.0 Negative 10.0-40.0 Equivocal >40.0 Positive Performed By: #### P ROSAC, AT3A, PROCAC, B2GGM, FA8 #### [address] [address] Website Admin: Dallin Avalos MD #### APROTS, AF5MUT, APTMUT #### [address] [id number] Website Admin: Carloz Sherwood MD #### LUPPRO #### [address] [address] Website Admin: Dallin Avalos MD [address] [place] [address] Website Admin: Juan Chong MD Protein S, Antigenicon 11-19 Protein S, Antigenic 119 % Normal 63-126 [facility] Comment on above: Result Comment: (NOT E) INTERPRETIVE INFORMATION: Protein S, Total Antigen Patients on warfarin may have decreased protein S values. Patients should be off warfarin therapy for two weeks for accurate measurement of protein S. Access complete set of age- and/or gender-specific reference intervals for this test in the [facility] Laboratory Test Directory (Podcast Ready). Performed By: [facility] [address] [place] [address] City Assessor: Jayy Ponce MD, PhD CLIA Number: [id number] Performed By: #### P ROSAC, AT3A, PROCAC, B2GGM, FA8 #### [facility] [address] [place] [phone] Website Admin: Dallin Avalos MD #### APROTS, AF5MUT, APTMUT #### [facility] [address] [place] [address] Website Admin: Carloz Sherwood MD #### LUPPRO #### [facility] [address] [place] [address] Website Admin: Dallin Avalos MD [facility] [address] [place] [address] [place] [address] Website Admin: Juan Chong MD Lupus Anticoagulanton 2022 aPTT Coag (d) [Time] 24.3 s Low 26.8-34.8 [facility] Comment on above: Result Comment: IV Heparin Therapy Range: 62.0-94.0 Performed By: #### P ROSAC, AT3A, PROCAC, B2GGM, FA8 #### [facility] [address] [place] [address] Website Admin: Dallin Avalos MD #### APROTS, AF5MUT, APTMUT #### [facility] [address] [place] [address] Website Admin: Carloz Sherwood MD #### LUPPRO #### [address] [id number] Website Admin: Dallin Avalos MD [facility] [address] [place] [address] [place] [address] Website Admin: Juan Chong MD INR Coag (PPP) [Relative time] 1.0 {INR} Normal [facility] Comment on above: Result Comment: Therapeutic Range: Moderate Anticoagulant Intensity: INR = 2.0-3.0 High Anticoagulant Intensity: INR = 2.5-3.5 Performed By: #### P ROSAC, AT3A, PROCAC, B2GGM, FA8 #### [address] [address] Website Admin: Dallin Avalos MD #### APROTS, AF5MUT, APTMUT #### [facility] [address] [place], [place] [id number] Website Admin: Carloz Sherwood MD #### LUPPRO #### [address] [address] Website Admin: Dallin Avalos MD [address] [place] [address] Website Admin: Juan Chong MD PT Coag (PPP) [Time] 12.9 s Normal 11.9-14.8 [facility] Comment on above: Performed By: #### P ROSAC, AT3A, PROCAC, B2GGM, FA8 #### [address] [address] Website Admin: Dallin Avalos MD #### APROTS, AF5MUT, APTMUT #### [facility] [address] [place] [address] Website Admin: Carloz Sherwood MD #### LUPPRO #### [address] [address] Website Admin: Dallin Avalos MD [address] [place] [address] Website Admin: Juan Chong MD CBCon 11-11-2022 Erythrocyte distribution width (RBC) [Ratio] 13.2 % Normal 12.1-15.2 [facility] Comment on above: Performed By: #### R ENP, CBC, MG, UAMIC, URI #### [facility] [address] [place] [address] Website Admin: Juan Chong MD #### PTHNCA, VD25, URTPRT #### [address] [id number] Website Admin: Dallin Avalos MD Hematocrit (Bld) [Volume fraction] 39.0 % Normal 36-46 [facility] Comment on above: Performed By: #### R ENP, CBC, MG, UAMIC, URI #### [facility] [address] [place] [address] Website Admin: Juan Chong MD #### PTHNCA, VD25, URTPRT #### [place] [id number] Website Admin: Dlalin Avalos MD Hemoglobin (Bld) [Mass/Vol] 13.4 g/dL Normal 12.0-16.0 [facility] Comment on above: Performed By: #### R ENP, CBC, MG, UAMIC, URI #### [facility] [address] [place] [address] Website Admin: Juan Chong MD #### VERONICA VD25, URTPRT #### [place] [id number] Website Admin: Dallin Avalos MD MCH (RBC) [Entitic mass] 30.4 pg Normal 26-34 [facility] Comment on above: Performed By: #### R ENP, CBC, MG, UAMIC, URI #### [facility] [address] [place] [address] Website Admin: Juan Chong MD #### VERONICA VD25, URTPRT #### [address] [id number] Website Admin: Dallin Avalos MD MCHC (RBC) [Mass/Vol] 34.3 g/dL Normal 31-37 [facility] Comment on above: Performed By: #### R ENP, CBC, MG, UAMIC, URI #### [facility] [address] [place], [place] [phone] Website Admin: Juan Chong MD #### PTHNCA, VD25, URTPRT #### [address] [phone] Website Admin: Dallin Avalos MD MCV (RBC) [Entitic vol] 88.6 fL Normal 80-100 [facility] Comment on above: Performed By: #### R ENP, CBC, MG, UAMIC, URI #### [facility] [address] [place] [address] Website Admin: Juan Chong MD #### PTHNCA, VD25, URTPRT #### [address] [id number] Website Admin: Dallin Avalos MD Platelets (Bld) [#/Vol] 232 10*3/uL Normal 140-450 [facility] Comment on above: Performed By: #### R ENP, CBC, MG, UAMIC, URI #### [facility] [address] [place] [address] Website Admin: Juan Chong MD #### PTHNCLeon, VD25, URTPRT #### [address] [id number] Website Admin: Dallin Avalos MD RBC (Bld) [#/Vol] 4.41 10*6/uL Normal 4.0-5.2 [facility] Comment on above: Performed By: #### R ENP, CBC, MG, UAMIC, URI #### [facility] [address] [place], [place] [phone] Website Admin: Juan Chong MD #### PTHNCA, VD25, URTPRT #### [address] [phone] Website Admin: Dallin Avalos MD WBC (Bld) [#/Vol] 6.2 10*3/uL Normal 3.5-11.0 [facility] Comment on above: Performed By: #### R ENP, CBC, MG, UAMIC, URI #### [facility] [address] [place] [address] Website Admin: Juan Chong MD #### PTHNCA, VD25, URTPRT #### [facility] [place], [place] 3860008 Website Admin: Dallin Avalos MD Magnesiumon 7 Magnesium [Mass/Vol] 1.8 mg/dL Normal 1.6-2.6 [facility] Comment on above: Performed By: #### R ENP, CBC, MG, UAMIC, URI #### [facility] [address] [place] [phone] Website Admin: Juan Chong MD #### PTHZOE VD25, URTPRT #### [address] [place], [place] [id number] Website Admin: Dallin Avalos MD PTH, Intacton 11-11-2022 PTH, Intact 75.9 pg/mL High 14.0-72.0 [facility] Comment on above: Result Comment: SAMP LES FROM PATIENTS ROUTINELY RECEIVING HIGH DOSE BIOTIN THERAPY MAY SHOW FALSELY DEPRESSED RESULTS. ADDITIONAL INFORMATION MAY BE REQUIRED FOR DIAGNOSIS. Performed By: #### R ENP, CBC, MG, UAMIC, URI #### [facility] [address] [place] [address] Website Admin: Juan Chong MD #### PTHNCA, VD25, URTPRT #### [facility] [address] [place], [place] [phone] Website Admin: Dallin Avalos MD Protein,Tot,Maxwell Uron 2022 Creatinine [Mass/Vol] 84.8 mg/dL Normal 28.0-217.0 [facility] Comment on above: Performed By: #### R ENP, CBC, MG, UAMIC, URI #### [facility] [address] [place], [place] [phone] Website Admin: Juan Chong MD #### VERONICA VD25, URTPRT #### [address] [phone] Website Admin: Dallin Avalos MD Tot Prot. Conc. 7 mg/dL Normal [facility] Comment on above: Result Comment: No n ormal range established. Performed By: #### R ENP, CBC, MG, UAMIC, URI #### [facility] [address] [place] [phone] Website Admin: Juan Chong MD #### JULIANN MARTIN, URTPRT #### [address] [id number] Website Admin: Dallin Avalos MD TP/Cre Ratio 0.08 Normal 0.00-0.20 [facility] Comment on above: Performed By: #### R ENP, CBC, MG, UAMIC, URI #### [facility] [address] [place] [phone] Website Admin: Juan Chong MD #### ELIAS25, URTPRT #### [address] [place], [place] [id number] Website Admin: Dallin Avalos MD Renal Function Panelon 11-11 Albumin [Mass/Vol] 3.7 g/dL Normal 3.5-5.2 [facility] Comment on above: Performed By: #### R ENP, CBC, MG, UAMIC, URI #### [facility] [address] [place] [phone] Website Admin: Juan Chong MD #### PTHNCA, VD25, URTPRT #### [address] [phone] Website Admin: Dallin Avalos MD Anion gap [Moles/Vol] 10 mmol/L Normal 9-17 [facility] Comment on above: Performed By: #### R ENP, CBC, MG, UAMIC, URI #### [facility] [address] [id number] ( Website Admin: Juan Chong MD #### PTHZOE, VD25, URTPRT #### [place] [id number] Website Admin: Dallin Avalos MD BUN/CRE Ratio 13 Normal 9-20 [facility] Comment on above: Performed By: #### R ENP, CBC, MG, UAMIC, URI #### [facility] [address] [place] [address] Website Admin: Juan Chnog MD #### VERONICA VD25, URTPRT #### [place] [id number] Website Admin: Dallin Avalos MD Calcium [Mass/Vol] 9.6 mg/dL Normal 8.6-10.4 [facility] Comment on above: Performed By: #### R ENP, CBC, MG, UAMIC, URI #### [facility] [address] [phone] Website Admin: Juan Chong MD #### PTHZOE, VD25, URTPRT #### [place] [id number] Website Admin: Dallin Avalos MD Chloride [Moles/Vol] 100 mmol/L Normal 98-107 [facility] Comment on above: Performed By: #### R ENP, CBC, MG, UAMIC, URI #### [facility] [address] [place], [place] [id number] Website Admin: Juan Chong MD #### VERONICA VD25, URTPRT #### [address] [id number] Website Admin: Dallin Avalos MD CO2 [Moles/Vol] 24 mmol/L Normal 20-31 [facility] Comment on above: Performed By: #### R ENP, CBC, MG, UAMIC, URI #### [facility] [address] [place] [address] Website Admin: Juan Chong MD #### VERONICA VD25, URTPRT #### [address] [phone] Website Admin: Dallin Avalos MD Creatinine [Mass/Vol] 1.0 mg/dL High 0.5-0.9 [facility] Comment on above: Performed By: #### R ENP, CBC, MG, UAMIC, URI #### [facility] [address] [place] [address] Website Admin: Juan Chong MD #### VERONICA, VD25, URTPRT #### [address] [id number] Website Admin: Dallin Avalos MD GFR/1.73 sq M.predicted among non-blacks MDRD (S/P/Bld) [Vol rate/Area] mL/min/{1.73_m2} Normal >60 [facility] Comment on above: Result Comment: These results are not intended for use in patients <18 years of age. eGFR results are calculated without a race factor using the 2020 CKD-EPI equation. Careful clinical correlation is recommended, particularly when comparing to results calculated using previous equations. The CKD-EPI equation is less accurate in patients with extremes of muscle mass, extra-renal metabolism of creatine, excessive creatine ingestion, or following therapy that affects renal tubular secretion. Performed By: #### R ENP, CBC, MG, UAMIC, URI #### [facility] [address] [place] [address] Website Admin: Juan Chong MD #### PTHNCA, VD25, URTPRT #### [address] [phone] Website Admin: Dallin Avalos MD Glucose [Mass/Vol] 165 mg/dL High 70-99 [facility] Comment on above: Performed By: #### R ENP, CBC, MG, UAMIC, URI #### [facility] [address] [place] [address] Website Admin: Juan Chong MD #### PTHBALAA, VD25, URTPRT #### [address] [id number] Website Admin: Dallin Avalos MD Phosphorus, Inorg. 3.5 mg/dL Normal 2.6-4.5 [facility] Comment on above: Performed By: #### R ENP, CBC, MG, UAMIC, URI #### [facility] [address] [place] [address] Website Admin: Juan Chong MD #### VERONIAC, VD25, URTPRT #### [address] [id number] Website Admin: Dallin Avalos MD Potassium [Moles/Vol] 4.1 mmol/L Normal 3.7-5.3 [facility] Comment on above: Performed By: #### R ENP, CBC, MG, UAMIC, URI #### [facility] [address] [place], [place] [id number] Website Admin: Juan Chong MD #### PTHNCA, VD25, URTPRT #### [address] [id number] Website Admin: Dallin Avalos MD Sodium [Moles/Vol] 134 mmol/L Low 135-144 [facility] Comment on above: Performed By: #### R ENP, CBC, MG, UAMIC, URI #### [facility] [address] [place], [place] [id number] Website Admin: Juan Chong MD #### VERONICA VD25, URTPRT #### [address] [phone] Website Admin: Dallin Avalos MD Urea nitrogen [Mass/Vol] 13 mg/dL Normal 8-23 [facility] Comment on above: Performed By: #### R ENP, CBC, MG, UAMIC, URI #### [facility] [address] [place], [place] [id number] Website Admin: Juan Chong MD #### ELIAS25, URTPRT #### [address] [id number] Website Admin: Dallin Avalos MD Uric Acidon Urate [Mass/Vol] 5.2 mg/dL Normal 2.4-5.7 [facility] Comment on above: Performed By: #### R ENP, CBC, MG, UAMIC, URI #### [facility] [address] [place], [place] [id number] Website Admin: Juan Chong MD #### VERONICA VD25, URTPRT #### [address] [address] [place], [place] [phone] Website Admin: Dallin Avalos MD Urinalysis w/ Microon 2022 ----- Normal [facility] Comment on above: Performed By: #### R ENP, CBC, MG, UAMIC, URI #### [facility] [address] [place], [place] [phone] Website Admin: Juan Chong MD #### PTHNCA, VD25, URTPRT #### [address] [phone] Website Admin: Dallin Avalos MD Bacteria 1+ Abnormal NONE [facility] Comment on above: Performed By: #### R ENP, CBC, MG, UAMIC, URI #### [facility] [address] [place] [address] Website Admin: Juan Chong MD #### PTHNCA, VD25, URTPRT #### [place] [phone] Website Admin: Dallin Avalos MD Bilirubin, SemiQt,Ur Negative Normal NEG [facility] Comment on above: Performed By: #### R ENP, CBC, MG, UAMIC, URI #### [facility] [address] [place] [address] Website Admin: Juan Chong MD #### PTHNCA, VD25, URTPRT #### [place] [phone] Website Admin: Dallin Avalos MD Blood, Urine Negative Normal NEG [facility] Comment on above: Performed By: #### R ENP, CBC, MG, UAMIC, URI #### [facility] [address] [phone] Website Admin: Juan Chong MD #### PTHNCA, VD25, URTPRT #### [place] [phone] Website Admin: Dallin Avalos MD Clarity (U) Clear Normal CLEAR [facility] Comment on above: Performed By: #### R ENP, CBC, MG, UAMIC, URI #### [facility] [address] [phone] (658) Website Admin: Juan Chong MD #### PTHNCA, VD25, URTPRT #### [address] [address] Website Admin: Dallin Avalos MD Color (U) Yellow Normal YEL [facility] Comment on above: Performed By: #### R ENP, CBC, MG, UAMIC, URI #### [facility] [address] [place] [address] Website Admin: Juan Chong MD #### PTHNCA, VD25, URTPRT #### [address] [address] Website Admin: Dallin Avalos MD Comment Normal [facility] Comment on above: Performed By: #### R ENP, CBC, MG, UAMIC, URI #### [facility] [address] [place] [address] Website Admin: Juan Chong MD #### PTHBALAA, VD25, URTPRT #### [address] [address] Website Admin: Dallin Avalos MD Epithelial cells LM Ql (Urine sed) 5 TO 10 Normal [facility] Comment on above: Performed By: #### R ENP, CBC, MG, UAMIC, URI #### [facility] [address] [place] [address] Website Admin: Juan Chong MD #### PTHNCA, VD25, URTPRT #### [address] [address] Website Admin: Dallin Avalos MD Glucose Ql (U) Negative Normal NEG [facility] Comment on above: Performed By: #### R ENP, CBC, MG, UAMIC, URI #### [facility] [address] [place] [address] Website Admin: Juan Chong MD #### PTHNCA, VD25, URTPRT #### [address] [address] Website Admin: Dallin Avalos MD Ketones Ql (U) Negative Normal NEG [facility] Comment on above: Performed By: #### R ENP, CBC, MG, UAMIC, URI #### [facility] [address] [place] [address] Website Admin: Juan Chong MD #### PTHBALAA VD25, URTPRT #### [place] [phone] Website Admin: Dallin Avalos MD Leukocyte esterase Test strip Ql (U) 3+ Abnormal NEG [facility] Comment on above: Performed By: #### R ENP, CBC, MG, UAMIC, URI #### [facility] [address] [place] [address] Website Admin: Juan Chong MD #### ELIAS25, URTPRT #### [place] [phone] Website Admin: Dallin Avalos MD Nitrite,Ur Negative Normal NEG [facility] Comment on above: Performed By: #### R ENP, CBC, MG, UAMIC, URI #### [facility] [address] [place] [address] Website Admin: Juan Chong MD #### PTHNCA VD25, URTPRT #### [address] [address] Website Admin: Dallin Avalos MD PH,Ur 6.0 Normal 5.0-8.0 [facility] Comment on above: Performed By: #### R ENP, CBC, MG, UAMIC, URI #### [facility] [address] [place], [place] [phone] Website Admin: Juan Chong MD #### ELIAS25, URTPRT #### [address] [id number] Website Admin: Dallin Avalos MD Protein Ql (U) Negative Normal NEG [facility] Comment on above: Performed By: #### R ENP, CBC, MG, UAMIC, URI #### [facility] [address] [place], [place] [phone] Website Admin: Juan Chong MD #### ELIAS25, URTPRT #### [address] [phone] Website Admin: Dallin Avalos MD Spec. Arma,Ur 1.015 Normal 1.005-1.030 [facility] Comment on above: Performed By: #### R ENP, CBC, MG, UAMIC, URI #### [facility] [address] [place], [place] [phone] Website Admin: Juan Chong MD #### ELIAS25, URTPRT #### [address] [id number] Website Admin: Dallin Avalos MD Urine RBC's 5 TO 10 Normal 0-2 [facility] Comment on above: Performed By: #### R ENP, CBC, MG, UAMIC, URI #### [facility] [address] [place], [place] [phone] Website Admin: Juan Chong MD #### ELIAS25, URTPRT #### [address] [phone] Website Admin: Dallin Avalos MD Urine WBC's 10 TO 20 Normal 0 [facility] Comment on above: Performed By: #### R ENP, CBC, MG, UAMIC, URI #### [facility] [address] [place], [place] [phone] Website Admin: Juan Chong MD #### PTHNCA, VD25, URTPRT #### [address] [address] Website Admin: Dallin Avalos MD Urobilinogen,Ur Normal Normal 0.0-1.0 [facility] Comment on above: Performed By: #### R ENP, CBC, MG, UAMIC, URI #### [facility] [address] [place] [address] Website Admin: Juan Chong MD #### PTHNCA, VD25, URTPRT #### [address] [phone] Website Admin: Dallin Avalos MD Vitamin D 25 OHon 11-11-2022 Vitamin D 25 [place] 54.3 ng/mL Normal >29.9 [facility] Comment on above: Result Comment: Reference Range: Vitamin D status Range Deficiency <20 ng/mL Mild Deficiency 20-30 ng/mL Sufficiency 30-100 ng/mL Toxicity >100 ng/mL Performed By: #### R ENP, CBC, MG, UAMIC, URI #### [facility] [address] [place], [place] [phone] Website Admin: Juan Chong MD #### PTHNCA, VD25, URTPRT #### [address] [address] Website Admin: Dallin Avalos MD Cult,Urineon 10-03-2022 Cult,Urine Specimen Description .CLEAN CATCH URINE Culture NO SIGNIFICANT GROWTH Report Status FINAL 10/03/2022 Normal [facility] Comment on above: Performed By: #### U RC #### [address] [address] Website Admin: Dallin Avalos MD [facility] [address] [place] [address] Website Admin: Juan Chong MD Basic Metabolic Panel w/ Ref paty to MGon 09-18-2022 Anion gap [Moles/Vol] 10 mmol/L 9 - 17 mmol/L [facility] Calcium [Mass/Vol] 9.1 mg/dL 8.6 - 10. 4 mg/dL [facility] Chloride [Moles/Vol] 103 mmol/L 98 - 107 mmol/L [facility] CO2 [Moles/Vol] 25 mmol/L 20 - 31 mmol/L [facility] Creatinine [Mass/Vol] 0.79 mg/dL 0.50 - 0.90 mg/dL [facility] GFR/1.73 sq M.predicted MDRD (S/P/Bld) [Vol rate/Area] - PINF [facility] Comment on above: These results are not intended for use in patients <18 years of age. eGFR results are calculated without a race factor using the 2020 CKD-EPI equation. Careful clinical correlation is recommended, particularly when comparing to results calculated using previous equations. The CKD-EPI equation is less accurate in patients with extremes of muscle mass, extra-renal metabolism of creatine, excessive creatine ingestion, or following therapy that affects renal tubular secretion. Glucose [Mass/Vol] 168 mg/dL High 70 - 99 mg/dL [facility] Interpretation and review of laboratory results Abnormal [facility] Potassium [Moles/Vol] 4.2 mmol/L 3.7 - 5.3 mmol/L [facility] Sodium [Moles/Vol] 138 mmol/L 135 - 144 mmol/L [facility] Urea nitrogen [Mass/Vol] 8 mg/dL 8 - 23 mg/dL [facility] Urea nitrogen/Creatinine [Mass ratio] 10 mg/mg 9 - 20 [facility] CBC with Auto Differentialon 09-18-2022 Basophils (Bld) [#/Vol] 0.00 10*3/uL [facility] Basophils/100 WBC (Bld) 1 % 0 - 2 % [facility] Differential Type YES [facility] Eosinophils (Bld) [#/Vol] 0.10 10*3/uL [facility] Eosinophils/100 WBC (Bld) 2 % 0 - 5 % [facility] Erythrocyte distribution width (RBC) [Ratio] 14.0 % 12.1 - 15.2 % [facility] Hematocrit (Bld) [Volume fraction] 40.9 % 36 - 46 % [facility] Hemoglobin (Bld) [Mass/Vol] 13.4 g/dL 12.0 - 16.0 g/dL [facility] Interpretation and review of laboratory results Abnormal [facility] Lymphocytes/100 WBC (Bld) 20 % 15 - 40 % [facility] Lymphocytes/100 WBC (Bld) 1.40 % [facility] MCH (RBC) [Entitic mass] 29.3 pg 26 - 34 pg [facility] MCHC (RBC) [Mass/Vol] 32.8 g/dL 31 - 37 g/dL [facility] MCV (RBC) [Entitic vol] 89.2 fL 80 - 100 fL [facility] Monocytes/100 WBC (Bld) 11 % High 4 - 8 % [facility] Monocytes/100 WBC (Bld) 0.80 % [facility] Neutrophils/100 WBC (Bld) 66 % 47 - 75 % [facility] Platelets (Bld) [#/Vol] 217 10*3/uL [facility] RBC (Bld) [#/Vol] 4.59 10*6/uL 4.0 - 5.2 m/uL [facility] Segmented neutrophils/100 WBC (Bld) 4.70 % [facility] WBC other (Bld) [#/Vol] 7.0 [facility] ECHO Complete 2D W Doppler W Coloron 09-18-2022 [facility] Transthoracic Echocardiography Report (TTE) Patient Name CANELA Date of Study 09/18/2022 SABINA J Date of 1950 Gender Female Age 71 year(s) Race Room Number 0259 Height: 60 inch, 152.4 cm Corporate ID [id number] Weight: 193 pounds, 87.5 kg # Patient Acct [id number] BSA: 1.84 m^2 BMI: 37.69 kg/m^2 # MR # [id number] Executive Compensation Analyst Amara Hernandes RT Interpreting Physician [place] Morales Fellow Referring Nurse Practitioner Interpreting Referring Physician HUBER PACHECO Fellow * HUBER DUPONT * Type of Study TTE procedure:2D Echocardiogram, M-Mode, Doppler, Color Doppler. Procedure Date Date: 09/18/2022 Start: 08:39 AM Study Location: [facility] Indications:Chest pain. Patient Status: Inpatient Height: 60 inches Weight: 192.99 pounds BSA: 1.84 m^2 BMI: 37.69 kg/m^2 CONCLUSIONS Summary In summary: 1. Normal LV function, EF 60% 2. Normal chamber sizes 3. Mild MR and TR 4. No pericardial effusion Signature FINDINGS Left Atrium Left atrium is normal in size. Left Ventricle Left ventricle is normal in size. Moderate to severe left ventricular hypertrophy. Global left ventricular systolic function is normal with an estimated ejection fraction of 60 % . Right Atrium Right atrium is normal in size. Right Ventricle Normal right ventricular size and function. Mitral Valve Thickened mitral valve leaflets. Mild mitral regurgitation. Aortic Valve Aortic valve leaflets are mildly thickened. No aortic stenosis. Tricuspid Valve Normal tricuspid valve leaflets. Mild tricuspid regurgitation. Pulmonic Valve The pulmonic valve is normal in structure. Pericardial Effusion No significant pericardial effusion is seen. Pleural Effusion No pleural effusion seen. Miscellaneous Normal aortic root dimension. M-mode / 2D Measurements & Calculations: LVIDs:3.28 cm(2.2 - 4.0 cm) Diastolic Volume:94.24 ml IVSd:1.03 cm(0.6 - 1.1 cm) Aortic Root:3.45 cm(2.0 - 3.7 cm) LA Dimension: 3.42 cm(1.9 - 4.0 cm) LVOT:2.24 cm RVDd:3.2 cm Mitral: Aortic Valve Area (P1/2-Time): 4.15 cm^2 Peak Velocity: 0.93 m/s Peak E-Wave: 1.22 m/s Peak Gradient: 3.47 mmHg Peak A-Wave: 0.00 m/s E/A Ratio: 529 Peak Gradient: 5.92 mmHg Deceleration Time: 182.87 msec P1/2t: 53.03 msec Tricuspid: Pulmonic: Estimated RVSP: 16.3 mmHg Peak Velocity: 0.83 m/s Peak TR Velocity: 1.68 m/s Peak Gradient: 2.73 mmHg Peak TR Gradient: 11.92023 mmHg Estimated RA Pressure: 5 mmHg Estimated PASP: 16.3 mmHg Diastology / Tissue Doppler Septal Wall E' velocity:0.13 m/s Lateral Wall E' velocity:0.13 m/s Lateral Wall E/E':8.99 [facility]PN [facility] CPACS Oni Delarosa MD - 09/18/2022 [facility] Transthoracic Echocardiography Report (TTE) Patient Name CANELA Date of Study 09/18/2022 SABINA Davidson Date of 1950 Gender Female Age 71 year(s) Race Room Number 0259 Height: 60 inch, 152.4 cm Corporate ID [id number] Weight: 193 pounds, 87.5 kg # Patient Acct [id number] BSA: 1.84 m^2 BMI: 37.69 kg/m^2 # MR # [id number] Executive Compensation Analyst Amara Hernandes, RT Interpreting Physician [place] Morales Fellow Referring Nurse Practitioner Interpreting Referring Physician HUBER PACHECO Fellow * HUBER DUPONT * Type of Study TTE procedure:2D Echocardiogram, M-Mode, Doppler, Color Doppler. Procedure Date Date: 09/18/2022 Start: 08:39 AM Study Location: [facility] Indications:Chest pain. Patient Status: Inpatient Height: 60 inches Weight: 192.99 pounds BSA: 1.84 m^2 BMI: 37.69 kg/m^2 CONCLUSIONS Summary In summary: 1. Normal LV function, EF 60% 2. Normal chamber sizes 3. Mild MR and TR 4. No pericardial effusion Signature - - - Electronically signed by JONELLE Garcia)Feli)(CT)([facility])(Ana Paula marinonilsa) on 09/18/2022 09:25 AM - FINDINGS Left Atrium Left atrium is normal in size. Left Ventricle Left ventricle is normal in size. Moderate to severe left ventricular hypertrophy. Global left ventricular systolic function is normal with an estimated ejection fraction of 60 % . Right Atrium Right atrium is normal in size. Right Ventricle Normal right ventricular size and function. Mitral Valve Thickened mitral valve leaflets. Mild mitral regurgitation. Aortic Valve Aortic valve leaflets are mildly thickened. No aortic stenosis. Tricuspid Valve Normal tricuspid valve leaflets. Mild tricuspid regurgitation. Pulmonic Valve The pulmonic valve is normal in structure. Pericardial Effusion No significant pericardial effusion is seen. Pleural Effusion No pleural effusion seen. Miscellaneous Normal aortic root dimension. M-mode / 2D Measurements & Calculations: LVIDs:3.28 cm(2.2 - 4.0 cm) Diastolic Volume:94.24 ml IVSd:1.03 cm(0.6 - 1.1 cm) Aortic Root:3.45 cm(2.0 - 3.7 cm) LA Dimension: 3.42 cm(1.9 - 4.0 cm) LVOT:2.24 cm RVDd:3.2 cm Mitral: Aortic Valve Area (P1/2-Time): 4.15 cm^2 Peak Velocity: 0.93 m/s Peak E-Wave: 1.22 m/s Peak Gradient: 3.47 mmHg Peak A-Wave: 0.00 m/s E/A Ratio: 529 Peak Gradient: 5.92 mmHg Deceleration Time: 182.87 msec P1/2t: 53.03 msec Tricuspid: Pulmonic: Estimated RVSP: 16.3 mmHg Peak Velocity: 0.83 m/s Peak TR Velocity: 1.68 m/s Peak Gradient: 2.73 mmHg Peak TR Gradient: 11.05695 mmHg Estimated RA Pressure: 5 mmHg Estimated PASP: 16.3 mmHg Diastology / Tissue Doppler Septal Wall E' velocity:0.13 m/s Lateral Wall E' velocity:0.13 m/s Lateral Wall E/E':8.99 [facility] EKG 12 Leadon 09-18-2022 Atrial Rate 75 BPM [facility] P [place] 34 degrees [facility] P-R Interval 186 ms [facility] Q-T Interval 368 ms [facility] QRS Duration 86 ms [facility] QTc Calculation (Bazett) 410 ms [facility] R [place] -27 degrees [facility] T [place] 43 degrees [facility] Ventricular Rate [address] [facility] Normal sinus rhythm Minimal voltage criteria for LVH, may be normal variant ( R in aVL ) Borderline ECG [facility] RADIOLOGY Chino Nielsen MD - 09/18/2022 Normal sinus rhythm Minimal voltage criteria for LVH, may be normal variant ( R in aVL ) Borderline ECG [facility] EKG 12 leadon 09-18-2022 Atrial Rate 77 BPM [facility] P [place] 54 degrees [facility] P-R Inter[facility] 214 ms [facility] Q-T Interval 394 ms [facility] QRS Duration 80 ms [facility] QTc Calculation (Bazett) 445 ms [facility] R [place] -25 degrees [facility] T [place] 52 degrees [facility] Ventricular Rate 77 BPM [facility] Normal sinus rhythm Normal ECG [facility] RADIOLOGY Chino Nielsen MD - 09/18/2022 Normal sinus rhythm Normal ECG [facility] EKG Rhythm Stripon 3 [facility] Glucose, Whole Bloodon 09-18 Glucose [Mass/Vol] 144 mg/dL High 65 - 99 mg/dL [facility] Interpretation and review of laboratory results Abnormal [facility] NM Cardiac Stress Test Nucle ar Imagingon 09-18-2022 Radiology exam is complete. No Radiologist dictation. Please follow up with ordering provider. [facility] RIS CONSOLIDATED Troponinon 09-18-2022 Troponin I.cardiac High sensitivity method [Mass/Vol] 8 ng/L 0 - 14 ng/L [facility] Comment on above: High Sensitivity Tro ponin values cannot be compared with other Troponin methodologies. [facility] CBC with Auto Differentialon 09-17-2022 Basophils (Bld) [#/Vol] 0.00 10*3/uL [facility] Basophils/100 WBC (Bld) 0 % 0 - 2 % [facility] Differential Type YES [facility] Eosinophils (Bld) [#/Vol] 0.10 10*3/uL [facility] Eosinophils/100 WBC (Bld) 1 % 0 - 5 % [facility] Erythrocyte distribution width (RBC) [Ratio] 13.9 % 12.1 - 15.2 % [facility] Hematocrit (Bld) [Volume fraction] 40.9 % 36 - 46 % [facility] Hemoglobin (Bld) [Mass/Vol] 13.9 g/dL 12.0 - 16.0 g/dL [facility] Interpretation and review of laboratory results Abnormal [facility] Lymphocytes/100 WBC (Bld) 25 % 15 - 40 % [facility] Lymphocytes/100 WBC (Bld) 2.80 % [facility] MCH (RBC) [Entitic mass] 30.1 pg 26 - 34 pg [facility] MCHC (RBC) [Mass/Vol] 34.1 g/dL 31 - 37 g/dL B [facility] MCV (RBC) [Entitic vol] 88.3 fL 80 - 100 fL [facility] Monocytes/100 WBC (Bld) 9 % High 4 - 8 % [facility] Monocytes/100 WBC (Bld) 1.10 % High [facility] Neutrophils/100 WBC (Bld) 65 % 47 - 75 % [facility] Platelets (Bld) [#/Vol] 242 10*3/uL [facility] RBC (Bld) [#/Vol] 4.63 10*6/uL 4.0 - 5.2 m/uL B ON [facility] Segmented neutrophils/100 WBC (Bld) 7.10 % High [facility] WBC other (Bld) [#/Vol] 11.1 High [facility] Comprehensive Metabolic Pane long 09-17-2022 Albumin [Mass/Vol] 4.1 g/dL 3.5 - 5.2 g/dL [facility] ALP [Catalytic activity/Vol] 95 U/L 35 - 104 U/L [facility] ALT [Catalytic activity/Vol] 29 U/L 5 - 33 U/L [facility] Anion gap [Moles/Vol] 11 mmol/L 9 - 17 mmol/L [facility] AST [Catalytic activity/Vol] 29 U/L NINF - 32 U/L [facility] Bilirubin [Mass/Vol] 0.6 mg/dL 0.3 - 1.2 mg/dL [facility] Calcium [Mass/Vol] 9.5 mg/dL 8.6 - 10. 4 mg/dL [facility] Chloride [Moles/Vol] 94 mmol/L Low 98 - 107 mmol/L [facility] CO2 [Moles/Vol] 22 mmol/L 20 - 31 mmol/L [facility] Creatinine [Mass/Vol] 0.95 mg/dL High 0.50 - 0.90 mg/dL [facility] GFR/1.73 sq M.predicted MDRD (S/P/Bld) [Vol rate/Area] - PINF [facility] Comment on above: These results are not intended for use in patients <18 years of age. eGFR results are calculated without a race factor using the 2020 CKD-EPI equation. Careful clinical correlation is recommended, particularly when comparing to results calculated using previous equations. The CKD-EPI equation is less accurate in patients with extremes of muscle mass, extra-renal metabolism of creatine, excessive creatine ingestion, or following therapy that affects renal tubular secretion. Glucose [Mass/Vol] 68 mg/dL Low 70 - 99 mg/dL [facility] Interpretation and review of laboratory results Abnormal [facility] Potassium [Moles/Vol] 3.8 mmol/L 3.7 - 5.3 mmol/L [facility] Protein [Mass/Vol] 7.3 g/dL 6.4 - 8.3 g/dL [facility] Sodium [Moles/Vol] 127 mmol/L Low 135 - 144 mmol/L [facility] Urea nitrogen [Mass/Vol] 10 mg/dL 8 - 23 mg/dL [facility] Urea nitrogen/Creatinine [Mass ratio] 11 mg/mg 9 - 20 [facility] Glucose, Whole Bloodon 09-17 Glucose [Mass/Vol] 106 mg/dL High 65 - 99 mg/dL [facility] Interpretation and review of laboratory results Abnormal [facility] Glucose [Mass/Vol] 67 mg/dL 65 - 99 mg/dL [facility] POCT glucoseon 09-17-2022 Glucose [Mass/Vol] 106 mg/dL [facility] Interpretation and review of laboratory results Normal [facility] QC OK? Yes [facility] Glucose [Mass/Vol] 67 mg/dL [facility] Interpretation and review of laboratory results Normal [facility] QC OK? Yes [facility] Troponinon 09-17-2022 Troponin I.cardiac High sensitivity method [Mass/Vol] 9 ng/L 0 - 14 ng/L [facility] Comment on above: High Sensitivity Tro ponin values cannot be compared with other Troponin methodologies. [facility] Troponin I.cardiac High sensitivity method [Mass/Vol] 11 ng/L 0 - 14 ng/L [facility] Comment on above: High Sensitivity Tro ponin values cannot be compared with other Troponin methodologies. [facility] Microscopic Urinalysison - [facility] Bacteria, UA 2+ Abnormal None [facility] Epithelial Cells UA 2 TO 5 /HPF [facility] Interpretation and review of laboratory results Abnormal [facility] RBC clumps Auto (Urine sed) [#/Area] 0 TO 2 [facility] WBC, UA 10 TO 20 0 /HPF [facility] Urinalysison 08-12-2022 Bilirubin Urine Negative NEGATIVE [facility] Color, UA Yellow Yellow [facility] Glucose Auto test strip (U) [Mass/Vol] Negative NEGATIVE [facility] Interpretation and review of laboratory results Abnormal [facility] Ketones (U) [Mass/Vol] Negative NEGATIVE [facility] Leukocyte esterase Auto test strip Ql (U) 3+ Abnormal NEGATIVE [facility] Nitrite Auto test strip Ql (U) Negative NEGATIVE [facility] Protein (U) [Mass/Vol] 7.0 mg/dL 5.0 - 8.0 [facility] Protein (U) [Mass/Vol] 1+ Abnormal NEGATIVE [facility] Specific Arma, UA 1.010 1.005 - 1.030 B ON [facility] Turbidity UA SLIGHTLY CLOUDY Abnormal Clear [facility] Urinalysis Comments [facility] Urine Hgb TRACE Abnormal NEGATIVE [facility] Urobilinogen, Urine Normal Normal [facility] TSHon 06-30-2022 TSH Qn 2.37 m[IU]/L [facility] Ferritinon 05-13-2022 Ferritin [Mass/Vol] 102 ng/mL 13 - 150 ng/mL B ON [facility] Iron and TIBCon 05-13-2022 Interpretation and review of laboratory results Abnormal [facility] Iron [Mass/Vol] 57 ug/dL 37 - 145 ug/dL [facility] Iron binding capacity [Mass/Vol] 241 ug/dL Low 250 - 450 ug/dL [facility] Iron Saturation 24 % 20 - 55 % [facility] UIBC 184 ug/dL 112 - 347 ug/dL [facility] No Panel Informationon 05-13 [facility] Microscopic Urinalysison - [facility] Bacteria, UA RARE Abnormal None [facility] Epithelial Cells UA 20 TO 50 /HPF [facility] Interpretation and review of laboratory results Abnormal [facility] RBC clumps Auto (Urine sed) [#/Area] NONE SEEN [facility] Renal Epithelial, UA 5 TO 10 0 /HPF [facility] WBC, UA 10 TO 20 0 /HPF [facility] Urinalysison 05-07-2022 Bilirubin Urine Negative NEGATIVE [facility] Color, UA Yellow Yellow [facility] Glucose Auto test strip (U) [Mass/Vol] Negative NEGATIVE [facility] Interpretation and review of laboratory results Abnormal [facility] Ketones (U) [Mass/Vol] Negative NEGATIVE [facility] Leukocyte esterase Auto test strip Ql (U) 2+ Abnormal NEGATIVE [facility] Nitrite Auto test strip Ql (U) Negative NEGATIVE [facility] Protein (U) [Mass/Vol] 7.0 mg/dL 5.0 - 8.0 [facility] Protein (U) [Mass/Vol] Negative NEGATIVE [facility] Specific Arma, UA 1.015 1.005 - 1.030 B ON [facility] Turbidity UA Clear Clear [facility] Urinalysis Comments [facility] Urine Hgb Negative NEGATIVE [facility] Urobilinogen, Urine Normal Normal [facility] XR KNEE LEFT (MIN 4 VIEWS)on 04-30-2022 No acute findings. Degenerative changes. [facility] EXAM: Left knee HISTORY: Sudden onset of pain today, no known injury TECHNIQUE: 6 views of the left knee were obtained. FINDINGS: There is no evidence of fracture or dislocation. There are no suspicious bone lesions. There are at least moderate tricompartmental osteoarthritic changes. Soft tissues are normal. [facility] Ronald Josue MD - 04/30/2022 EXAM: Left knee HISTORY: Sudden onset of pain today, no known injury TECHNIQUE: 6 views of the left knee were obtained. FINDINGS: There is no evidence of fracture or dislocation. There are no suspicious bone lesions. There are at least moderate tricompartmental osteoarthritic changes. Soft tissues are normal. IMPRESSION: No acute findings. Degenerative changes. [employer] Work Phone: Radiology Study observation (narrative) [employer] Phone: XR KNEE LEFT (MIN 4 VIEWS)Or dered By: Ronald Josue on 04-30-2022 [facility] [employer] MRI KNEE RIGHT WO CONTRASTon 11-26-2021 1. Tricompartmental osteoarthritis which appears moderately severe in the medial femorotibial compartment. 2. Complex morphology tear of the body and posterior horn of the medial meniscus with medial extrusion of the majority of the body of the medial meniscus of 4 mm. No lateral meniscal tear is seen. 3. Small joint effusion. 4. No ligament injury is seen. [facility] HISTORY: Right knee pain for the past month. Radiographs right knee 09/25/2021. MRI KNEE RIGHT WO CONTRAST: 11/25/2021, 3:37 PM EDT. COMPARISON: Radiographs right knee 09/25/2021. TECHNIQUE: Multiplanar, multisequence MRI images of the knee were obtained. FINDINGS: JOINT SPACES: There is a small joint effusion. There is patchy grade III to IV chondromalacia involving the majority of the patellar cartilage and there is mild thinning of the medial femoral trochlear cartilage. There appear to be moderate degenerative changes primarily involving the posterior and medial aspect of the lateral femorotibial compartment as seen on the coronal images. There appear to be moderate to severe degenerative changes of the medial femorotibial compartment with a large area of grade IV chondromalacia involving the central weightbearing portion of the medial femoral condyle. LIGAMENTS AND TENDONS: There is medial bowing of the medial collateral ligament at the joint line, but the ligament appears of normal size and signal intensity. The lateral collateral ligament, posterior cruciate ligament, iliotibial band, patellar tendon, and visualized distal quadriceps tendon appear within normal limits. The anterior cruciate ligament appears within normal limits. MENISCI: There is a complex morphology tear of the body and entire posterior horn of the medial meniscus and this tear appears to extend through nearly the full-thickness of the posterior horn. There is medial extrusion of the body of the medial meniscus of 4 mm. No lateral meniscal tear is seen. BONES: The bone marrow signal intensity is age appropriate. There is mild subchondral bone marrow edema within the medial femoral condyle and there is subchondral cystic change within the posterior aspect of the medial femoral condyle. MUSCLES AND SOFT TISSUES: The visualized musculature appears of normal signal intensity. There is no Carroll cyst. Incidental note is made of a small ganglion cyst posterior to the supracondylar portions of the medial and lateral femoral condyles. The ganglion cyst laterally probably contains a synovitis. [facility] [place], Brant Otoole D - 11/26/2021 HISTORY: Right knee pain for the past month. Radiographs right knee 09/25/2021. MRI KNEE RIGHT WO CONTRAST: 11/25/2021, 3:37 PM EDT. COMPARISON: Radiographs right knee 09/25/2021. TECHNIQUE: Multiplanar, multisequence MRI images of the knee were obtained. FINDINGS: JOINT SPACES: There is a small joint effusion. There is patchy grade III to IV chondromalacia involving the majority of the patellar cartilage and there is mild thinning of the medial femoral trochlear cartilage. There appear to be moderate degenerative changes primarily involving the posterior and medial aspect of the lateral femorotibial compartment as seen on the coronal images. There appear to be moderate to severe degenerative changes of the medial femorotibial compartment with a large area of grade IV chondromalacia involving the central weightbearing portion of the medial femoral condyle. LIGAMENTS AND TENDONS: There is medial bowing of the medial collateral ligament at the joint line, but the ligament appears of normal size and signal intensity. The lateral collateral ligament, posterior cruciate ligament, iliotibial band, patellar tendon, and visualized distal quadriceps tendon appear within normal limits. The anterior cruciate ligament appears within normal limits. MENISCI: There is a complex morphology tear of the body and entire posterior horn of the medial meniscus and this tear appears to extend through nearly the full-thickness of the posterior horn. There is medial extrusion of the body of the medial meniscus of 4 mm. No lateral meniscal tear is seen. BONES: The bone marrow signal intensity is age appropriate. There is mild subchondral bone marrow edema within the medial femoral condyle and there is subchondral cystic change within the posterior aspect of the medial femoral condyle. MUSCLES AND SOFT TISSUES: The visualized musculature appears of normal signal intensity. There is no Carroll cyst. Incidental note is made of a small ganglion cyst posterior to the supracondylar portions of the medial and lateral femoral condyles. The ganglion cyst laterally probably contains a synovitis. IMPRESSION: 1. Tricompartmental osteoarthritis which appears moderately severe in the medial femorotibial compartment. 2. Complex morphology tear of the body and posterior horn of the medial meniscus with medial extrusion of the majority of the body of the medial meniscus of 4 mm. No lateral meniscal tear is seen. 3. Small joint effusion. 4. No ligament injury is seen. [facility] [employer] Work Phone: MRI KNEE RIGHT WO CONTRASTOr dered By: Aureliano Patel on 11-26-2021 [facility] Work Phone: MRI KNEE RIGHT WO CONTRASTon 11-25-2021 Radiology Study observation (narrative) [facility] Work Phone: Vitamin B12 & Folateon 11-19 Cobalamin (Vitamin B12) [Mass/Vol] 287 pg/mL 232 - 1245 pg/mL [facility] Folate 3.7 ng/mL Low 4.8 - PINF ng/mL [facility] Interpretation and review of laboratory results Abnormal [facility] CBC with Manual Differential on 11-18-2021 Absolute Eos # 0.10 [facility] Absolute Immature Granulocyte 0.00 [facility] Absolute Lymph # 2.30 [facility] Absolute [place] # 0.86 [facility] Basophils Absolute 0.00 [facility] Basophils/100 WBC (Bld) 0 % 0 - 2 % [facility] Eosinophils % 1 % 1 - 4 % [facility] Hematocrit (Bld) [Volume fraction] 43.6 % 36.3 - 47.1 % [facility] Immature Granulocytes 0 % 0 [facility] Interpretation and review of laboratory results Abnormal [facility] Lymphocytes/100 WBC (Bld) 24 % 24 - 43 % [facility] MCH (RBC) [Entitic mass] 29.2 pg 25.2 - 33.5 pg [facility] MCHC (RBC) [Mass/Vol] 31.0 g/dL 28.4 - 34.8 g/dL [facility] MCV (RBC) [Entitic vol] 94.4 fL 82.6 - 102.9 fL [facility] Monocytes/100 WBC (Bld) 9 % 3 - 12 % [facility] Morphology Normal [facility] NRBC Automated 0.0 0.0 per 100 WBC [facility] Platelet distribution width (Bld) [Ratio] 12.8 % 11.8 - 14.4 % [facility] Platelet mean volume (Bld) [Entitic vol] 11.0 fL 8.1 - 13.5 fL [facility] Platelets (Bld) [#/Vol] 216 10*3/uL [facility] RBC (Bld) [#/Vol] 4.62 10*6/uL 3.95 - 5.1 1 m/uL [facility] Seg Neutrophils 66 % High 36 - 65 % [facility] Segs Absolute 6.34 [facility] WBC (Bld) [#/Vol] 9.6 10*3/uL [facility] Comprehensive Metabolic Pane long 11-18-2021 Albumin [Mass/Vol] 3.8 g/dL 3.5 - 5.2 g/dL [facility] Albumin/Globulin [Mass ratio] 1.5 {ratio} 1 - 2.5 [facility] ALP (Bld) [Catalytic activity/Vol] 84 U/L 35 - 104 U/L [facility] ALT [Catalytic activity/Vol] 21 U/L 5 - 33 U/L [facility] Anion gap [Moles/Vol] 10 mmol/L 9 - 17 mmol/L [facility] AST [Catalytic activity/Vol] 21 U/L NINF - 32 U/L [facility] Bilirubin [Mass/Vol] 0.57 mg/dL 0.3 - 1.2 mg/dL [facility] Calcium [Mass/Vol] 9.8 mg/dL 8.6 - 10. 4 mg/dL [facility] Chloride [Moles/Vol] 101 mmol/L 98 - 107 mmol/L [facility] CO2 [Moles/Vol] 27 mmol/L 20 - 31 mmol/L [facility] Creatinine [Mass/Vol] 1.25 mg/dL High 0.5 - 0.9 mg/d L [facility] Free PSA/Total PSA [Mass fraction] 6.4 g/dL 6.4 - 8.3 g/dL [facility] GFR 52 mL/min Low 60 - PI NF mL/min [facility] GFR Non- 43 mL/min Low 60 - PINF mL/min [facility] Glucose [Mass/Vol] 175 mg/dL High 70 - 99 mg/dL [facility] Interpretation and review of laboratory results Abnormal [facility] Potassium [Moles/Vol] 4.0 mmol/L 3.7 - 5.3 mmol/L [facility] Sodium [Moles/Vol] 138 mmol/L 135 - 144 mmol/L [facility] Urea nitrogen (BldV) [Mass/Vol] 9 mg/dL 8 - 23 mg/dL [facility] Urea nitrogen/Creatinine (Bld) [Mass ratio] 7 Low 9 - 20 [facility] Iron and TIBCon 11-18-2021 Iron [Mass/Vol] 70 ug/dL 37 - 145 ug/dL [facility] Iron Saturation 25 % 20 - 55 % [facility] TIBC 282 ug/dL 250 - 450 ug/dL [facility] UIBC 212 ug/dL 112 - 347 ug/dL [facility] Laboratory - Chemistry and C hemistry - challengeon 11-18-2021 GFR/1.73 sq M.predicted MDRD (S/P/Bld) [Vol rate/Area] [facility] Comment on above: Average GFR for 60-6 9 years old: 85 mL/min/1.73sq m Chronic Kidney Disease: <60 mL/min/1.73sq m Kidney failure: <15 mL/min/1.73sq m eGFR calculated using average adult body mass. Additional eGFR calculator available at: http://www.[employer].com/multiple_crcl_2012.htm Stage 1: Some kidney damage normal GFR Stage 2: Mild kidney damage GFR 60-89 Stage 3: Moderate kidney damage GFR 30-59 Stage 4: Severe kidney damage GFR 15-29 Stage 5: Severe kidney damage GFR <15 ESRD - chronic treatment by dialysis or transplant Sedimentation Rateon 11-18-2 022 Sed Rate [address] [facility] [address] HEAD WO CONTRASTon 2021 1. No acute intracranial abnormality. If the patient has a focal neurologic deficit or there is clinical suspicion for acute cerebrovascular accident, brain MRI would be recommended for further evaluation. [facility] CT head without contrast CLINICAL: Reason for exam:->Fall, confusion, on Eliquis . TECHNIQUE: Contiguous transaxial images were obtained from skull base to vertex without administration of intravenous contrast. Dose reduction: mA and/or kV are were adjusted by automated exposure control software based upon patients height and weight. FINDINGS: Comparison made to head CT dated 01/15/2021. There is no focal scalp soft tissue swelling or acute calvarial fracture. The visualized globes and orbits are grossly normal. There is minimal paranasal sinus mucosal thickening without air-fluid levels. Bilateral mastoid air cells are clear. The ventricles and sulci are normal and symmetric bilaterally. There is no intraparenchymal hemorrhage, extraaxial fluid collection, mass lesion, or acute large vessel ischemia by noncontrast CT. [facility] Ronald Daniels MD - 10/31/2021 CT head without contrast CLINICAL: Reason for exam:->Fall, confusion, on Eliquis . TECHNIQUE: Contiguous transaxial images were obtained from skull base to vertex without administration of intravenous contrast. Dose reduction: mA and/or kV are were adjusted by automated exposure control software based upon patients height and weight. FINDINGS: Comparison made to head CT dated 01/15/2021. There is no focal scalp soft tissue swelling or acute calvarial fracture. The visualized globes and orbits are grossly normal. There is minimal paranasal sinus mucosal thickening without air-fluid levels. Bilateral mastoid air cells are clear. The ventricles and sulci are normal and symmetric bilaterally. There is no intraparenchymal hemorrhage, extraaxial fluid collection, mass lesion, or acute large vessel ischemia by noncontrast CT. IMPRESSION: 1. No acute intracranial abnormality. If the patient has a focal neurologic deficit or there is clinical suspicion for acute cerebrovascular accident, brain MRI would be recommended for further evaluation. [employer] Phone: Radiology Study observation (narrative) [employer] Phone: CT HEAD WO CONTRASTOrdered B y: Ronald Daniels on 10-31-2021 [employer] Phone: XR KNEE RIGHT (MIN 4 VIEWS)o n 09-25-2021 1. Mild to moderate tricompartmental osteoarthritis of the right knee with moderate right knee effusion. 2. No acute fracture or dislocation of the right knee. 3. Osteoarthritis of the contralateral left knee. [facility] EXAM: XR KNEE RIGHT (MIN 4 VIEWS) HISTORY: Reason for exam:->knee pain, lateral knee. Right posterior knee pain. No known injury. Symptoms began yesterday. COMPARISON: None. TECHNIQUE: Bilateral standing knees and 3 additional views of the right knee. FINDINGS: There is mild to moderate tricompartmental osteoarthritis of the right knee with a medial and patellofemoral compartment predominance. There is a moderate right knee effusion. There is no acute displaced fracture or dislocation of the right knee. 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 Partially visualized is moderate osteoarthritis of the contralateral left knee. [facility] Ronald Daniels MD - 09/25/2021 EXAM: XR KNEE RIGHT (MIN 4 VIEWS) HISTORY: Reason for exam:->knee pain, lateral knee. Right posterior knee pain. No known injury. Symptoms began yesterday. COMPARISON: None. TECHNIQUE: Bilateral standing knees and 3 additional views of the right knee. FINDINGS: There is mild to moderate tricompartmental osteoarthritis of the right knee with a medial and patellofemoral compartment predominance. There is a moderate right knee effusion. There is no acute displaced fracture or dislocation of the right knee. 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 Partially visualized is moderate osteoarthritis of the contralateral left knee. IMPRESSION: 1. Mild to moderate tricompartmental osteoarthritis of the right knee with moderate right knee effusion. 2. No acute fracture or dislocation of the right knee. 3. Osteoarthritis of the contralateral left knee. [employer] Work Phone: Radiology Study observation (narrative) [employer] Work Phone: XR KNEE RIGHT (MIN 4 VIEWS)O rdered By: Ronald Daniels on 09-25-2021 [employer] Work Phone: COVID-19, Rapidon 09-20-2021 SARS-CoV-2 (COVID-19) RNA [employer]JATA+probe Ql (Unsp spec) Not detected Not Detected [employer] Comment on above: Rapid NAAT: The specimen is NEGATIVE for SARS-CoV-2, the novel coronavirus associated with COVID-19. The ID NOW COVID-19 assay is designed to detect the virus that causes COVID-19 in patients with signs and symptoms of infection who are suspected of COVID-19. An individual without symptoms of COVID-19 and who is not shedding SARS-CoV-2 virus would expect to have a negative (not detected) result in this assay. Negative results should be treated as presumptive and, if inconsistent with clinical signs and symptoms or necessary for patient management, should be tested with an alternative molecular assay. Negative results do not preclude SARS-CoV-2 infection and should not be used as the sole basis for patient management decisions. Fact sheet for Healthcare Providers: https://www.fda.gov/media/703197/download Fact sheet for Patients: https://www.fda.gov/media/910908/download Methodology: Isothermal Nucleic Acid Amplification Specimen Description .NASOPHARYNGEAL SWAB [employer] [facility] BUN & Creatinineon 2 Creatinine [Mass/Vol] 1.23 mg/dL High 0.50 - 0.90 mg/dL [employer] GFR 53 mL/min Low >60 [employer] GFR Non- 43 mL/min Low >60 [employer] GFR/1.73 sq M.predicted MDRD (S/P/Bld) [Vol rate/Area] [employer] Comment on above: Average GFR for 60-6 9 years old: 85 mL/min/1.73sq m Chronic Kidney Disease: <60 mL/min/1.73sq m Kidney failure: <15 mL/min/1.73sq m eGFR calculated using average adult body mass. Additional eGFR calculator available at: http://www.[employer].Algisys/multiple_crcl_2012.htm Interpretation and review of laboratory results Abnormal [facility] Urea nitrogen (BldV) [Mass/Vol] 9 mg/dL 8 - 23 mg/dL [facility] CTA CHEST W CONTRASTon 08-[address] chest. Small right adrenal adenoma, unchanged. PN RIS CONSOLIDATED EXAMINATION: CTA CHEST W CONTRAST HISTORY: 70-year-old female follow-up pulmonary embolus. COMPARISON: CTA chest 11/21/2020 showed bilateral pulmonary emboli, right greater than left with trace left pleural effusion. TECHNIQUE: CT angiography of the pulmonary arteries following the administration of intravenous contrast. Coronal and sagittal MIP (maximum intensity projection) images were performed. Dose reduction techniques were achieved by using automated exposure control and/or adjustment of mA and/or kV according to patient size and/or use of iterative reconstruction technique. FINDINGS: PERTINENT POSITIVES: None. PERTINENT NEGATIVES: Pulmonary emboli have resolved. Negative for pulmonary artery hypertensive changes. COINCIDENTAL FINDINGS: Small hiatal hernia, 3.3 cm diameter. Small right adrenal adenoma, stable. ROUTINE EXAMINATION: No pericardial effusion. Age-expected degenerative changes in the spine. No mediastinal mass or hilar adenopathy. [facility] RIS CONSOLIDATED Israel Villegas Jr., MD - 08/15/2021 EXAMINATION: CTA CHEST W CONTRAST HISTORY: 70-year-old female follow-up pulmonary embolus. COMPARISON: CTA chest 11/21/2020 showed bilateral pulmonary emboli, right greater than left with trace left pleural effusion. TECHNIQUE: CT angiography of the pulmonary arteries following the administration of intravenous contrast. Coronal and sagittal MIP (maximum intensity projection) images were performed. Dose reduction techniques were achieved by using automated exposure control and/or adjustment of mA and/or kV according to patient size and/or use of iterative reconstruction technique. FINDINGS: PERTINENT POSITIVES: None. PERTINENT NEGATIVES: Pulmonary emboli have resolved. Negative for pulmonary artery hypertensive changes. COINCIDENTAL FINDINGS: Small hiatal hernia, 3.3 cm diameter. Small right adrenal adenoma, stable. ROUTINE EXAMINATION: No pericardial effusion. Age-expected degenerative changes in the spine. No mediastinal mass or hilar adenopathy. IMPRESSION: Negative CT chest. Small right adrenal adenoma, unchanged. [employer] Phone: Radiology Study observation (narrative) [employer] Phone: CTA CHEST W CONTRASTOrdered By: Israel Villegas on 08-15-2021 [employer] Phone: D-Dimer, Quantitativeon 08-04 D-Dimer, Quant 0.36 [facility] Comment on above: When combined with a low clinical probability, a D dimer value of <0.50 mg/L FEU is considered negative for DVT and PE (negative predictive value of 98%, sensitivity of 97%). If this test is not being used to help rule out DVT and PE, then the following reference range should be utilized: 0.00 - 0.59 mg/L FEU. The D-Dimer assay is intended for use as an aid in the diagnosis of venous thromboembolism (DVT and PE) and the results should be interpreted in conjunction with the patient's medical history, clinical presentation, and other findings. Elevated levels of D-dimer activity can be seen in any state of coagulation activation and is not recommended in patients with therapeutic dose anticoagulant therapy for >24 hours, fibrinolytic therapy within the previous 7 days, trauma or surgery within the previous 4 weeks, disseminated malignancies, aortic aneurysm, sepsis, severe infections, pneumonia, severe skin infections, liver cirrhosis, advanced age, coronary disease, diabetes, and . A very low percentage of patients with DVT may yield D-dimer results below the cutoff of 0.5 mg/L FEU. This is known to be more prevalent in patients with distal DVT. [employer] EKG 12 leadOrdered By: Chino Nielsen on 03-04-2021 Atrial Rate 104 BPM [employer] Phone: P Montgomery 65 degrees [employer] Phone: P-R Interval 166 ms [employer] Phone: Q-T Interval 340 ms [employer] Phone: QRS Duration 72 ms [employer] Phone: QTc Calculation (Bazett) 447 ms [employer] Phone: R Montgomery -26 degrees [employer] Phone: T Montgomery 53 degrees [employer] Phone: Ventricular Rate 104 BPM [employer] Work Phone: [employer] Phone: EKG 12 leadon 03-04-2021 Sinus tachycardia Low voltage QRS Borderline ECG [facility] RADIOLOGY BackChino MD - 03/04/2021 Sinus tachycardia Low voltage QRS Borderline ECG [employer] Phone: CT Cervical Spine WO Contras tOrdered By: Justin Jc on 01-15-2021 Degenerative changes without fracture. [employer] Phone: EXAMINATION: CT CERVICAL SPINE WO CONTRAST HISTORY: Reason for exam:->fall with unknown head strike on Eliquis, with headache COMPARISON: None. TECHNIQUE: CT Cervical spine without IV contrast. Coronal and sagittal reformations were performed. Dose reduction techniques were achieved by using automated exposure control and/or adjustment of mA and/or kV according to patient size and/or use of iterative reconstruction technique. FINDINGS: PERTINENT POSITIVES: None. PERTINENT NEGATIVES: No cervical spine fracture or dislocation. COINCIDENTAL FINDINGS: Multilevel age expected degenerative changes at the discs and facets. ROUTINE EXAMINATION: Spinous processes normal. Prevertebral soft tissues normal. Lung apices clear. Scattered small nodes in the neck. [employer] Phone: Stanislav, pn Incoming Radiant Results From [employer] - 01/15/2021 2:42 PM EDT EXAMINATION: CT CERVICAL SPINE WO CONTRAST HISTORY: Reason for exam:->fall with unknown head strike on Eliquis, with headache COMPARISON: None. TECHNIQUE: CT Cervical spine without IV contrast. Coronal and sagittal reformations were performed. Dose reduction techniques were achieved by using automated exposure control and/or adjustment of mA and/or kV according to patient size and/or use of iterative reconstruction technique. FINDINGS: PERTINENT POSITIVES: None. PERTINENT NEGATIVES: No cervical spine fracture or dislocation. COINCIDENTAL FINDINGS: Multilevel age expected degenerative changes at the discs and facets. ROUTINE EXAMINATION: Spinous processes normal. Prevertebral soft tissues normal. Lung apices clear. Scattered small nodes in the neck. IMPRESSION: Degenerative changes without fracture. [employer] Phone: [employer] Phone: CT Head WO ContrastOrdered B y: Justin Jc on 01-15-[address] BRAIN. [employer] Phone: EXAMINATION: CT HEAD WO CONTRAST HISTORY: Reason for exam:->fall with unknown head strike on Eliis, with headache COMPARISON: MRI brain 10/25/20. TECHNIQUE: CT examination of the head without IV contrast. Dose reduction techniques were achieved by using automated exposure control and/or adjustment of mA and/or kV according to patient size and/or use of iterative reconstruction technique. FINDINGS: Normal ventricles and sulci with no bleed, mass, midline shift or extra-axial fluid collection. The bone windows are normal. The coronal and sagittal multiplanar reconstructions show no additional abnormality. [employer] Phone: Stanislav, [facility] Incoming Radiant Results From [employer] - 01/15/2021 2:26 PM EDT EXAMINATION: CT HEAD WO CONTRAST HISTORY: Reason for exam:->fall with unknown head strike [facility], with headache COMPARISON: MRI brain 10/25/20. TECHNIQUE: CT examination of the head without IV contrast. Dose reduction techniques were achieved by using automated exposure control and/or adjustment of mA and/or kV according to patient size and/or use of iterative reconstruction technique. FINDINGS: Normal ventricles and sulci with no bleed, mass, midline shift or extra-axial fluid collection. The bone windows are normal. The coronal and sagittal multiplanar reconstructions show no additional abnormality. IMPRESSION: Negative CT BRAIN. [employer] Phone: [employer] Phone: Basic Metabolic PanelOrdered By: Obed Dunn on 01-01-2021 Anion gap [Moles/Vol] 10 mmol/L 9 - 17 mmol/L [employer] Phone: Calcium [Mass/Vol] 9.3 mg/dL 8.6 - 10. 4 mg/dL [employer] Phone: Chloride [Moles/Vol] 102 mmol/L 98 - 107 mmol/L [employer] Phone: CO2 [Moles/Vol] 23 mmol/L 20 - 31 mmol/L [employer] Phone: Creatinine [Mass/Vol] 0.98 mg/dL High 0.50 - 0.90 mg/dL [employer] Phone: GFR >60 >60 mL/min [employer] Phone: GFR Non- 56 mL/min Low >60 [employer] Phone: GFR/1.73 sq M.predicted MDRD (S/P/Bld) [Vol rate/Area] [employer] Phone: Comment on above: Average GFR for 60-6 9 years old: 85 mL/min/1.73sq m Chronic Kidney Disease: <60 mL/min/1.73sq m Kidney failure: <15 mL/min/1.73sq m eGFR calculated using average adult body mass. Additional eGFR calculator available at: http://www.[employer].Algisys/multiple_crcl_2011.htm GFR/1.73 sq M.predicted MDRD (S/P/Bld) [Vol rate/Area] NOT REPORTED [employer] Phone: Glucose [Mass/Vol] 204 mg/dL High 70 - 99 mg/dL [employer] Phone: Interpretation and review of laboratory results Abnormal [employer] Phone: Potassium [Moles/Vol] 4.5 mmol/L 3.7 - 5.3 mmol/L [employer] Phone: Sodium [Moles/Vol] 135 mmol/L 135 - 144 mmol/L [employer] Phone: Urea nitrogen (BldV) [Mass/Vol] 10 mg/dL 8 - 23 mg/dL [employer] Phone: Urea nitrogen/Creatinine (Bld) [Mass ratio] 10 [employer] Phone: [employer] Phone: Basic Metabolic PanelOrdered By: Dm Lynn on 12-23-2020 Anion gap [Moles/Vol] 9 mmol/L 9 - 17 mmol/L [employer] Phone: Calcium [Mass/Vol] 9.0 mg/dL 8.6 - 10. 4 mg/dL [employer] Phone: Chloride [Moles/Vol] 99 mmol/L 98 - 107 mmol/L [employer] Phone: CO2 [Moles/Vol] 25 mmol/L 20 - 31 mmol/L [employer] Phone: Creatinine [Mass/Vol] 1.09 mg/dL High 0.50 - 0.90 mg/dL [employer] Phone: GFR >60 >60 mL/min [employer] Phone: GFR Non- 50 mL/min Low >60 [employer] Phone: GFR/1.73 sq M.predicted MDRD (S/P/Bld) [Vol rate/Area] [employer] Phone: Comment on above: Average GFR for 60-6 9 years old: 85 mL/min/1.73sq m Chronic Kidney Disease: <60 mL/min/1.73sq m Kidney failure: <15 mL/min/1.73sq m eGFR calculated using average adult body mass. Additional eGFR calculator available at: http://www.[employer].Algisys/multiple_crcl_2012.htm GFR/1.73 sq M.predicted MDRD (S/P/Bld) [Vol rate/Area] NOT REPORTED [facility] [employer] Work Phone: Glucose [Mass/Vol] 151 mg/dL High 70 - 99 mg/dL [facility] [employer] Work Phone: Interpretation and review of laboratory results Abnormal [facility] [employer] Work Phone: Potassium [Moles/Vol] 4.7 mmol/L 3.7 - 5.3 mmol/L [facility] [employer] Work Phone: Sodium [Moles/Vol] 133 mmol/L Low 135 - 144 mmol/L [facility] [employer] Phone: Urea nitrogen (BldV) [Mass/Vol] 8 mg/dL 8 - 23 mg/dL [facility] [employer] Phone: Urea nitrogen/Creatinine (Bld) [Mass ratio] 7 Low [facility] [employer] Work Phone: [facility] [employer] Work Phone: Brain Natriuretic PeptideOrd ered By: Thotz on 12-23-2020 BNP Interpretation Pro-BNP Reference Range: [facility] Phone: Comment on above: Rule Out: <300 Das Zone: Age <50 300-450 Age 50-75 300-900 Age >75 300-1800 Usually represents mild to moderate HF but other cardiopulmonary causes cannot be ruled out. Rule In: Age <50 >450 Age 50-75 >900 Age >75 >1800 Natriuretic peptide B (Bld) [Mass/Vol] 201 pg/mL <300 [facility] [employer] Work Phone: Comment on above: Pro-BNP results tyrel ot be compared to BNP results. [facility] Hospital[facility] Work Phone: CBC Auto DifferentialOrdered By: Thotz on 12-23-2020 [employer] # 0.20 [facility] Work Phone: Absolute Immature Granulocyte NOT REPORTED [facility] Work Phone: Absolute Lymph # 1.20 [employer] Work Phone: [employer] [place] # 0.60 [facility] Work Phone: Basophils (Bld) [#/Vol] 0.00 10*3/uL [employer] Work Phone: Basophils/100 WBC (Bld) 1 % 0 - 2 % [employer] Work Phone: Differential Type YES [employer] Work Phone: Eosinophils/100 WBC (Bld) 5 % 0 - 5 % [employer] Work Phone: Hematocrit (Bld) [Volume fraction] 35.7 % Low 36 - 46 % [employer] Work Phone: Hemoglobin.gastrointe stinal spec 1 Ql (Stl) 12.0 g/dL 12.0 - 16.0 g/dL [employer] Phone: Immature Granulocytes NOT REPORTED 0 % M [employer] Work Phone: Interpretation and review of laboratory results Abnormal [employer] Phone: Lymphocytes/100 WBC (Bld) 26 % 15 - 40 % [employer] Work Phone: MCH (RBC) [Entitic mass] 29.0 pg 26 - 34 pg [employer] Phone: MCHC (RBC) [Mass/Vol] 33.6 g/dL 31 - 37 g/dL M [employer] Work Phone: MCV (RBC) [Entitic vol] 86.5 fL 80 - 100 fL [employer] Phone: Monocytes/100 WBC (Bld) 12 % High 4 - 8 % [employer] Work Phone: NRBC Automated NOT REPORTED per 100 WBC [employer] Work Phone: Platelet distribution width (Bld) [Ratio] 14.6 % 12.1 - 15.2 % [employer] Phone: Platelet Estimate NOT REPORTED [employer] Phone: Platelet mean volume (Bld) [Entitic vol] NOT REPORTED 6.0 - 12.0 fL [employer] Phone: Platelets (Bld) [#/Vol] 168 10*3/uL [employer] Phone: RBC (Bld) [#/Vol] 4.13 10*6/uL 4.0 - 5.2 m/uL [facility] system[facility] Work Phone: RBC (Bld) [#/Vol] NOT REPORTED [employer] Phone: Segmented neutrophils/100 WBC (Bld) 56 % 47 - 75 % [employer] Phone: Segs Absolute 2.60 [employer] Work Phone: WBC (Bld) [#/Vol] 4.6 10*3/uL [employer] Work Phone: WBC (Bld) [#/Vol] NOT REPORTED [employer] Phone: [employer] Phone: D-Dimer, QuantitativeOrdered By: Dm Lynn on 12-23-2020 D-Dimer, Quant 0.42 [employer] Work Phone: Comment on above: When combined with a low clinical probability, a D dimer value of <0.50 mg/L FEU is considered negative for DVT and PE (negative predictive value of 98%, sensitivity of 97%). If this test is not being used to help rule out DVT and PE, then the following reference range should be utilized: 0.00 - 0.59 mg/L FEU. The D-Dimer assay is intended for use as an aid in the diagnosis of venous thromboembolism (DVT and PE) and the results should be interpreted in conjunction with the patient's medical history, clinical presentation, and other findings. Elevated levels of D-dimer activity can be seen in any state of coagulation activation and is not recommended in patients with therapeutic dose anticoagulant therapy for >24 hours, fibrinolytic therapy within the previous 7 days, trauma or surgery within the previous 4 weeks, disseminated malignancies, aortic aneurysm, sepsis, severe infections, pneumonia, severe skin infections, liver cirrhosis, advanced age, coronary disease, diabetes, and . A very low percentage of patients with DVT may yield D-dimer results below the cutoff of 0.5 mg/L FEU. This is known to be more prevalent in patients with distal DVT. [employer] Work Phone: Microscopic UrinalysisOrdere d By: Dm Fongitrov on 12-23-2020 - [facility] Work Phone: Amorphous, UA NOT REPORTED None [facility] [facility]Mary [facility] Hospitala [facility] Work Phone: Bacteria, UA 1+ Abnormal None [facility] [employer] Work Phone: Casts UA NOT REPORTED /LPF [facility] [employer] Work Phone: Crystals, UA NOT REPORTED None /HPF [facility] Work Phone: Epithelial Cells UA 2 TO 5 /HPF [facility] [employer] Work Phone: Interpretation and review of laboratory results Abnormal [facility] [employer] Work Phone: Mucus, UA NOT REPORTED None [facility] Work Phone: Other Observations UA NOT REPORTED NOT REQ. M [facility] [employer] Work Phone: RBC, UA 0 TO 2 [facility] [employer] Work Phone: Renal Epithelial, UA NOT REPORTED 0 /HPF [facility] Work Phone: Trichomonas, UA NOT REPORTED None [facility] Work Phone: WBC, UA 0 TO 2 0 /HPF [facility] [employer] Work Phone: Yeast, UA NOT REPORTED None [facility] Work Phone: [facility] Work Phone: UrinalysisOrdered By: Jim carreno Shane on 12-23-2020 Bilirubin Urine Negative NEGATIVE [facility] Work Phone: Color, UA YELLOW YELLOW [facility] Work Phone: Glucose, Ur Negative NEGATIVE [facility] Work Phone: Interpretation and review of laboratory results Abnormal [employer] Work Phone: Ketones Ql (U) Negative NEGATIVE [facility] Work Phone: Leukocyte esterase Test strip Ql (U) 2+ Abnormal NEGATIVE [facility] Work Phone: Nitrite, Urine Negative NEGATIVE [facility] Work Phone: pH, UA 7.0 [facility] [employer] Work Phone: Protein, UA Negative NEGATIVE [facility] Work Phone: Specific Arma, UA 1.010 [employer] Work Phone: Turbidity UA CLEAR CLEAR [facility] Work Phone: Urinalysis Comments [employer] Work Phone: Urine Hgb Negative NEGATIVE [employer] Work Phone: Urobilinogen, Urine Normal Normal [facility] Work Phone: [employer] Work Phone: APTTOrdered By: Tyrell caal on 2020 aPTT Coag (Bld) [Time] 30.7 s [employer] Work Phone: Comment on above: IV Heparin Therapy Range: 62.0-94.0 CBC auto differentialOrdered By: Tyrell Jo on 2020 [employer] # 0.[address] [facility] Work Phone: Absolute Immature Granulocyte <0.03 [employer] Work Phone: Absolute Lymph # 1.29 [employer] [facility] Work Phone: [employer] [place] # 0.51 [facility] Work Phone: Basophils (Bld) [#/Vol] 0.03 10*3/uL [employer] Work Phone: Basophils/100 WBC (Bld) 1 % 0 - 2 % [employer] Work Phone: Differential Type NOT REPORTED [employer] Phone: Eosinophils/100 WBC (Bld) 4 % 1 - 4 % [employer] Phone: Hematocrit (Bld) [Volume fraction] 39.9 % 36.3 - 47.1 % [employer] Work Phone: Hemoglobin.gastrointe stinal spec 1 Ql (Stl) 12.5 g/dL 11.9 - 15.1 g/dL [employer] Phone: Immature granulocytes/100 WBC (Bld) 0 % 0 [employer] Phone: Lymphocytes/100 WBC (Bld) 29 % 24 - 43 % [employer] Phone: MCH (RBC) [Entitic mass] 28.3 pg 25.2 - 33.5 pg [employer] Phone: MCHC (RBC) [Mass/Vol] 31.3 g/dL 28.4 - 34.8 g/dL [employer] Phone: MCV (RBC) [Entitic vol] 90.5 fL 82.6 - 102.9 fL [employer] Phone: Monocytes/100 WBC (Bld) 12 % 3 - 12 % [employer] Phone: NRBC Automated 0.0 0.0 per 100 WBC [employer] Phone: Platelet distribution width (Bld) [Ratio] 13.2 % 11.8 - 14.4 % [employer] Phone: Platelet Estimate NOT REPORTED [employer] Phone: Platelet mean volume (Bld) [Entitic vol] 11.3 fL 8.1 - 13.5 fL [employer] Work Phone: Platelets (Bld) [#/Vol] 149 10*3/uL [employer] Phone: RBC (Bld) [#/Vol] 4.41 10*6/uL 3.95 - 5.1 1 m/uL [employer] Work Phone: RBC (Bld) [#/Vol] NOT REPORTED [employer] Work Phone: Segmented neutrophils/100 WBC (Bld) 54 % 36 - 65 % [employer] Work Phone: Segs [employer] 2[employer]43 [employer] Work Phone: WBC (Bld) [#/Vol] 4.5 10*3/uL [employer] Work Phone: WBC (Bld) [#/Vol] NOT REPORTED [employer] Phone: [employer] Work Phone: Comprehensive metabolic pane lOrdered By: Tyrell Jo on 2020 Albumin [Mass/Vol] 3.8 g/dL 3.5 - 5.2 g/dL [facility] Phone: Albumin/Globulin [Mass ratio] 1.3 {ratio} [employer] Phone: ALP (Bld) [Catalytic activity/Vol] 76 U/L 35 - 104 U/L [employer] Phone: ALT [Catalytic activity/Vol] 23 U/L 5 - 33 U/L [employer] Phone: Anion gap [Moles/Vol] 9 mmol/L 9 - 17 mmol/L [employer] Phone: AST [Catalytic activity/Vol] 31 U/L <32 [employer] Phone: Bilirubin [Mass/Vol] 0.35 mg/dL 0.3 - 1.2 mg/dL [facility] Phone: Calcium [Mass/Vol] 9.4 mg/dL 8.6 - 10. 4 mg/dL [facility] Phone: Chloride [Moles/Vol] 102 mmol/L 98 - 107 mmol/L [facility] Phone: CO2 [Moles/Vol] 25 mmol/L 20 - 31 mmol/L [facility] Phone: Creatinine [Mass/Vol] 1.14 mg/dL High 0.50 - 0.90 mg/dL [employer] Phone: Free PSA/Total PSA [Mass fraction] 6.8 g/dL 6.4 - 8.3 g/dL [facility] Phone: GFR 57 mL/min Low >60 [employer] Phone: GFR Non- 47 mL/min Low >[address] [facility] Phone: Glucose [Mass/Vol] 88 mg/dL 70 - 99 mg/dL [facility] [employer] Work Phone: Interpretation and review of laboratory results Abnormal [facility] [employer] Phone: Potassium [Moles/Vol] 4.7 mmol/L 3.7 - 5.3 mmol/L [facility] [employer] Phone: Sodium [Moles/Vol] 136 mmol/L 135 - 144 mmol/L [facility] [employer] Phone: Urea nitrogen (BldV) [Mass/Vol] 9 mg/dL 8 - 23 mg/dL [facility] Phone: Urea nitrogen/Creatinine (Bld) [Mass ratio] 8 Low [facility] [employer] Phone: [facility] Phone: Laboratory - Chemistry and C hemistry - challengeOrdered By: Tyrell Jo on 2020 GFR/1.73 sq M.predicted MDRD (S/P/Bld) [Vol rate/Area] [employer] Phone: Comment on above: Average GFR for 60-6 9 years old: 85 mL/min/1.73sq m Chronic Kidney Disease: <60 mL/min/1.73sq m Kidney failure: <15 mL/min/1.73sq m eGFR calculated using average adult body mass. Additional eGFR calculator available at: http://www.[employer]/multiple_crcl_2012.htm Stage 1: Some kidney damage normal GFR Stage 2: Mild kidney damage GFR 60-89 Stage 3: Moderate kidney damage GFR 30-59 Stage 4: Severe kidney damage GFR 15-29 Stage 5: Severe kidney damage GFR <15 ESRD - chronic treatment by dialysis or transplant No Panel InformationOrdered By: Tyrell Jo on 2020 [employer] Phone: Protime-INROrdered By: Fan Jo on 2020 INR Coag (Bld) [Relative time] 1.0 {INR} [employer] Phone: Comment on above: Non-therapeutic Range: INR = 0.9-1.2 Therapeutic Range: Moderate Anticoagulant Intensity: INR = 2.0-3.0 High Anticoagulant Intensity: INR = 2.5-3.5 PT Coag (PPP) [Time] 13 s [employer] Phone: Factor V Mutationon 11-30-19 21 F 5 SPECIMEN Whole Blood Normal [facility] Comment on above: Performed By: #### P TT #### [employer] [address] [place] [address] Website Admin: Dallin Avalos MD FACTOR 5 MUTATION Negative Normal [facility] Comment on above: Result Comment: (NOT E) Indication for testing: Assess genetic risk for thrombosis. NEGATIVE: The factor V Leiden variant, [id number]; [id number], was not detected. This does not exclude a genetic cause for thrombophilia. If this individual has had a previous venous thromboembolism, this negative result is unlikely to significantly reduce the risk for recurrence; thus, future clinical management to reduce recurrence should not be altered. This result has been reviewed and approved by Sandi Zapata M.D. BACKGROUND INFORMATION: Factor V Leiden (F5) R506Q Mutation CHARACTERISTICS: Venous thromboembolism (VTE) is multifactorial caused by a combination of genetic and environmental factors. The Factor V Leiden (FVL) variant is the most common cause of inherited VTEs, accounting for over 90 percent of activated protein C (APC) resistance. Because the FVL variant eliminates the APC cleavage site, factor V is inactivated slower, thus persisting longer in blood circulation, leading to more thrombin production. Other genetic risk factors for VTE include, male sex and variants in antithrombin, protein C, protein S, or factor XIII. Non-genetic risk factors include, age, smoking, prolonged immobilization, malignant neoplasms, surgery, , oral contraceptives, estrogen replacement therapy, tamoxifen and raloxifene therapy. INCIDENCE OF FACTOR V LEIDEN VARIANT: Approximately 5 percent of Caucasians, 2 percent of Hispanics, 1 percent of Americans and 0.5 percent of Asians are heterozygous; homozygosity occurs in 1 in 1500 Caucasians. INHERITANCE: Semi-dominant; both heterozygotes and homozygotes are at increased risk for VTE. PENETRANCE: Lifetime risk of VTE is 10 percent for heterozygotes and 80 percent of homozygotes. 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 Legacy nomenclature: R506Q (1691G>A) CLINICAL SENSITIVITY: 20-50 percent of individuals with an isolated VTE have the FVL variant. METHODOLOGY: Polymerase chain reaction and fluorescence monitoring. ANALYTICAL SENSITIVITY AND SPECIFICITY: 99 percent. LIMITATIONS: Diagnostic errors can occur due to rare sequence variations. F5 gene mutations, other than p.[id number], will not be detected. This test was developed and its performance characteristics determined by [facility]. It has not been cleared or approved by the [place] Food and Drug Administration. This test was performed in a CLIA certified laboratory and is intended for clinical purposes. Counseling and informed consent are recommended for genetic testing. Consent forms are available online. Performed by [facility], [address] [place] [id number] [email or web address], Heather Swann MD, Lab. Director Performed By: #### P TT #### [address] [id number] Website Admin: Dallin Avalos MD Cardiolipin Ab [place],Mon 11-27 Anticardiolipin IgA 4.5 APL Normal 0.0-14.0 [facility] Comment on above: Result Comment: Reference Range: <14.0 Negative 14.0-20.0 Equivocal >20.0 Positive When results are Equivocal, it is recommended to retest after 4-6 weeks. Performed By: #### P TT #### [address] [id number] Website Admin: Dallin Avalos MD Anticardiolipin IgG 1.7 GPL Normal 0.0-10.0 [facility] Comment on above: Result Comment: Reference Range: <10.0 Negative 10.0-40.0 Equivocal >40.0 Positive Performed By: #### P TT #### [address] [address] Website Admin: Dallin Avalos MD Anticardiolipin IgM 20.0 MPL High 0.0-10.0 [facility] Comment on above: Result Comment: Reference Range: <10.0 Negative 10.0-40.0 Equivocal >40.0 Positive Performed By: #### P TT #### [address] [address] Website Admin: Dallin Avalos MD APTTon 11-24-2020 aPTT Coag (Bld) [Time] 64.9 s High 20.5-30.5 [facility] Comment on above: Result Comment: IV Heparin Therapy Range: 48.6-77.8 Performed By: #### P TT #### [address] [address] Website Admin: Dallin Avalos MD APTTOrdered By: Lyndsay Easton on 11-24-2020 aPTT Coag (Bld) [Time] 64.9 s High [employer] Phone: Comment on above: IV Heparin Therapy Range: 48.6-77.8 Interpretation and review of laboratory results Abnormal [employer] Phone: [employer] Phone: ECHO Complete 2D W Doppler W ColorOrdered By: Kathleen Arreguin on 11-24-2020 Transthoracic Echocardiography Report (TTE) Patient Name RODRIGO Date of Study 11/24/2020 SABINA Davidson Date of 1950 Gender Female Age 69 year(s) Race Room Number 3010 Height: 60 inch, 152.4 cm Corporate ID [id number] Weight: 212 pounds, 96.2 kg # Patient Acct [id number] BSA: 1.91 m^2 BMI: 41.4 kg/m^2 # MR # [id number] Executive Compensation Analyst Blake Leonard Interpreting Physician Umesh Powell Fellow Referring Nurse Practitioner Interpreting Referring Physician KATHLEEN ARREGUIN, Fellow ACTIVITY THERAPIST Type of Study TTE procedure:2D Echocardiogram, M-Mode, Doppler, Color Doppler. Procedure Date Date: 11/24/2020 Start: 07:47 AM Study Location: [facility] Technical Quality: Adequate visualization Indications:Right heart strain and Pulmonary embolus. History / Tech. Comments: Echo done at patient bedside. Procedure explained to patient. Type 2 DM, HTN Patient Status: Inpatient Height: 60 inches Weight: 212 pounds BSA: 1.91 m^2 BMI: 41.4 kg/m^2 HR: 52 bpm CONCLUSIONS Summary Left ventricle is normal in size. Global left ventricular systolic function is normal. Calculated ejection fraction 54% by Heart Model. Normal right ventricular size and function. No significant valvular regurgitation or stenosis seen. No pericardial effusion seen. Signature FINDINGS Left Atrium Left atrium is normal in size. Left Ventricle Left ventricle is normal in size. Global left ventricular systolic function is normal. Calculated ejection fraction 54% by Heart Model. Right Atrium Right atrium is normal in size. Right Ventricle Normal right ventricular size and function. TAPSE value of 1.75cm noted. Mitral Valve Normal mitral valve structure. Trivial mitral regurgitation. Aortic Valve Normal aortic valve structure and function without stenosis or regurgitation. Tricuspid Valve No obvious valvular abnormality. Trivial tricuspid regurgitation. No pulmonary hypertension. Estimated right ventricular systolic pressure is 39mmHg. Pulmonic Valve The pulmonic valve is normal in structure. No pulmonic insufficiency. Pericardial Effusion No pericardial effusion seen. Pleural Effusion Left pleural effusion. Miscellaneous E/E' average = 9.2. IVC normal diameter & inspiratory collapse indicating normal RA filling pressure . M-mode / 2D Measurements & Calculations: LVIDd:4.4 cm(3.7 - 5.6 cm) Diastolic Volume:126 ml LVIDs:3.3 cm(2.2 - 4.0 cm) Systolic Volume:58 ml IVSd:0.9 cm(0.6 - 1.1 cm) Aortic Root:2.9 cm(2.0 - 3.7 cm) LVPWd:0.9 cm(0.6 - 1.1 cm) LA Dimension: 2.8 cm(1.9 - 4.0 cm) Fractional [place]enin % LA volume/Index: 32.73 ml /17m^2 Calculated LVEF (%): 53.97 % LVOT:1.9 cm RVDd:2.8 cm Mitral: Aortic Valve Area (P1/2-Time): 3.24 cm^2 Peak Velocity: 1.21 m/s Peak E-Wave: 0.57 m/s Mean Velocity: 0.76 m/s Peak A-Wave: 0.87 m/s Peak Gradient: 5.86 mmHg E/A Ratio: 0.65 Mean Gradient: 3 mmHg Peak Gradient: 1.28 mmHg Mean Gradient: 1 mmHg Deceleration Time: 232 msec Area (continuity): 1.74 cm^2 P1/2t: 68 msec AV VTI: 32 cm Area (continuity): 1.9 cm^2 Mean Velocity: 0.42 m/s Tricuspid: Pulmonic: Peak TR Velocity: 2.93 m/s Peak Velocity: 0.61 m/s Peak TR Gradient: 34.3396 mmHg Peak Gradient: 1.5 mmHg Diastology / Tissue Doppler Septal Wall E' velocity:0.05 m/s Septal Wall E/E':10.6 Lateral Wall E' velocity:0.07 m/s Lateral Wall E/E':7.9 [employer] Work Phone: Stanislav, pn Incoming Cardio Results From [facility]/ - 11/24/2020 1:07 PM EDT Transthoracic Echocardiography Report (TTE) Patient Name CANELA Date of Study 11/24/2020 SABINA Stuart Date of 1950 Gender Female Age 69 year(s) Race Room Number 3010 Height: 60 inch, 152.4 cm Corporate ID [id number] Weight: 212 pounds, 96.2 kg # Patient Acct [id number] BSA: 1.91 m^2 BMI: 41.4 kg/m^2 # MR # [id number] Executive Compensation Analyst Blake Leonard # [id number] Interpreting Physician Umesh Powell Fellow Referring Nurse Practitioner Interpreting Referring Physician KATHLEEN ARREGUIN, Fernando NAVA Type of Study TTE procedure:2D Echocardiogram, M-Mode, Doppler, Color Doppler. Procedure Date Date: 11/24/2020 Start: 07:47 AM Study Location: [facility] Technical Quality: Adequate visualization Indications:Right heart strain and Pulmonary embolus. History / Tech. Comments: Echo done at patient bedside. Procedure explained to patient. Type 2 DM, HTN Patient Status: Inpatient Height: 60 inches Weight: 212 pounds BSA: 1.91 m^2 BMI: 41.4 kg/m^2 HR: 52 bpm CONCLUSIONS Summary Left ventricle is normal in size. Global left ventricular systolic function is normal. Calculated ejection fraction 54% by Heart Model. Normal right ventricular size and function. No significant valvular regurgitation or stenosis seen. No pericardial effusion seen. Signature - - - - FINDINGS Left Atrium Left atrium is normal in size. Left Ventricle Left ventricle is normal in size. Global left ventricular systolic function is normal. Calculated ejection fraction 54% by Heart Model. Right Atrium Right atrium is normal in size. Right Ventricle Normal right ventricular size and function. TAPSE value of 1.75cm noted. Mitral Valve Normal mitral valve structure. Trivial mitral regurgitation. Aortic Valve Normal aortic valve structure and function without stenosis or regurgitation. Tricuspid Valve No obvious valvular abnormality. Trivial tricuspid regurgitation. No pulmonary hypertension. Estimated right ventricular systolic pressure is 39mmHg. Pulmonic Valve The pulmonic valve is normal in structure. No pulmonic insufficiency. Pericardial Effusion No pericardial effusion seen. Pleural Effusion Left pleural effusion. Miscellaneous E/E' average = 9.2. IVC normal diameter & inspiratory collapse indicating normal RA filling pressure . M-mode / 2D Measurements & Calculations: LVIDd:4.4 cm(3.7 - 5.6 cm) Diastolic Volume:126 ml LVIDs:3.3 cm(2.2 - 4.0 cm) Systolic Volume:58 ml IVSd:0.9 cm(0.6 - 1.1 cm) Aortic Root:2.9 cm(2.0 - 3.7 cm) LVPWd:0.9 cm(0.6 - 1.1 cm) LA Dimension: 2.8 cm(1.9 - 4.0 cm) Fractional Shortenin % LA volume/Index: 32.73 ml /17m^2 Calculated LVEF (%): 53.97 % LVOT:1.9 cm RVDd:2.8 cm Mitral: Aortic Valve Area (P1/2-Time): 3.24 cm^2 Peak Velocity: 1.21 m/s Peak E-Wave: 0.57 m/s Mean Velocity: 0.76 m/s Peak A-Wave: 0.87 m/s Peak Gradient: 5.86 mmHg E/A Ratio: 0.65 Mean Gradient: 3 mmHg Peak Gradient: 1.28 mmHg Mean Gradient: 1 mmHg Deceleration Time: 232 msec Area (continuity): 1.74 cm^2 P1/2t: 68 msec AV VTI: 32 cm Area (continuity): 1.9 cm^2 Mean Velocity: 0.42 m/s Tricuspid: Pulmonic: Peak TR Velocity: 2.93 m/s Peak Velocity: 0.61 m/s Peak TR Gradient: 34.3396 mmHg Peak Gradient: 1.5 mmHg Diastology / Tissue Doppler Septal Wall E' velocity:0.05 m/s Septal Wall E/E':10.6 Lateral Wall E' velocity:0.07 m/s Lateral Wall E/E':7.9 [employer] Phone: [employer] Phone: POC Glucose FingerstickOrder ed By: Justin Jefferson on 11-24-2020 Glucose [Mass/Vol] 95 mg/dL 65 - 105 mg/dL [facility] Phone: Glucose [Mass/Vol] 137 mg/dL High 65 - 105 mg/dL [facility] Phone: Interpretation and review of laboratory results Abnormal [employer] Phone: [employer] Phone: APTTon 11-23-2020 aPTT Coag (Bld) [Time] 73.2 s High 20.5-30.5 [facility] Comment on above: Result Comment: IV Heparin Therapy Range: 48.6-77.8 Performed By: #### A F5MUT #### [facility] [address] [place] [address] Website Admin: Carloz Sherwood MD #### PROCAC, TSHX, AT3A, ACARDA, PTT, PT, FT4, PROSAC, GLYHGB, BMPX, CBC, IPF #### [employer] [address] [place], [place] [id number] Website Admin: Dallin Avalos MD APTTOrdered By: Lyndsay Easton on 11-23-2020 aPTT Coag (Bld) [Time] 73.2 s High [facility] Work Phone: Comment on above: IV Heparin Therapy Range: 48.6-77.8 Interpretation and review of laboratory results Abnormal [facility] Work Phone: Antithrombin III [place] 11-23 Antithrombin III Act 70 % Low 83-122 [facility] Comment on above: Result Comment: Patients receiving Hirudin may have a falsely decreased Antitrombin III Activity. Performed By: #### P TT #### [employer] [facility] [place] [address] Website Admin: Dallin Avalos MD Antithrombin III ActivityOrd ered By: Lyndsay Easton on 11-23-2020 AT-III Activity 70 % Low 83 - 122 % [facility] Work Phone: Comment on above: Patients receiving Hirudin may have a falsely decreased Antitrombin III Activity. Basic Metab w/rfx MGon 11-23 (cont.) Normal [facility] Comment on above: Result Comment: Aver age GFR for 60-69 years old: 85 mL/min/1.73sq m Chronic Kidney Disease: <60 mL/min/1.73sq m Kidney failure: <15 mL/min/1.73sq m eGFR calculated using average adult body mass. Additional eGFR calculator available at: http://www.[employer].Algisys/multiple_crcl_2012.htm Performed By: #### A F5MUT #### [facility] [address] [place] [address] Website Admin: Carloz Sherwood MD #### PROCAC, TSHX, AT3A, ACARDA, PTT, PT, FT4, PROSAC, GLYHGB, BMPX, CBC, IPF #### [employer] [address] [place] [address] Website Admin: Dallin Avalos MD Anion gap [Moles/Vol] 13 mmol/L Normal 9-17 [facility] Comment on above: Performed By: #### A F5MUT #### [facility] [address], [place] [id number] Website Admin: Carloz Sherwood MD #### PROCAC, TSHX, AT3A, ACARDA, PTT, PT, FT4, PROSAC, GLYHGB, BMPX, CBC, IPF #### [address] [id number] Website Admin: Dallin Avalos MD Calcium [Mass/Vol] 8.2 mg/dL Low 8.6-10.4 [facility] Comment on above: Performed By: #### A F5MUT #### [address] [id number] Website Admin: Carloz Sherwood MD #### PROCAC, TSHX, AT3A, ACARDA, PTT, PT, FT4, PROSAC, GLYHGB, BMPX, CBC, IPF #### [address] [id number] Website Admin: Dallin Avalos MD Chloride [Moles/Vol] 102 mmol/L Normal 98-107 [facility] Comment on above: Performed By: #### A F5MUT #### [address] [id number] Website Admin: Carloz Sherwood MD #### PROCAC, TSHX, AT3A, ACARDA, PTT, PT, FT4, PROSAC, GLYHGB, BMPX, CBC, IPF #### [address] [id number] Website Admin: Dallin Avalos MD CO2 [Moles/Vol] 20 mmol/L Normal 20-31 [facility] Comment on above: Performed By: #### A F5MUT #### [facility] [address], [place] [phone] Website Admin: Carloz Sherwood MD #### PROCAC, TSHX, AT3A, ACARDA, PTT, PT, FT4, PROSAC, GLYHGB, BMPX, CBC, IPF #### [address] [id number] Website Admin: Dallin Avalos MD Creatinine [Mass/Vol] 0.92 mg/dL High 0.50-0.90 [facility] Comment on above: Performed By: #### A F5MUT #### [facility] [address] [place] [address] [phone] Website Admin: Carloz Sherwood MD #### PROCAC, TSHX, AT3A, ACARDA, PTT, PT, FT4, PROSAC, GLYHGB, BMPX, CBC, IPF #### [address] [id number] Website Admin: Dallin Avalos MD GFR, Amer >60 Normal >60 [facility] Comment on above: Performed By: #### A F5MUT #### [facility] [address] [place] [phone] Website Admin: Carloz Sherwood MD #### PROCAC, TSHX, AT3A, ACARDA, PTT, PT, FT4, PROSAC, GLYHGB, BMPX, CBC, IPF #### [address] [id number] Website Admin: Dallin Avalos MD GFR,non Amer >60 Normal >60 [facility] Comment on above: Performed By: #### A F5MUT #### [facility] [address] [place] [phone] Website Admin: Carloz Sherwood MD #### PROCAC, TSHX, AT3A, ACARDA, PTT, PT, FT4, PROSAC, GLYHGB, BMPX, CBC, IPF #### [address] [id number] Website Admin: Dallin Avalos MD Glucose [Mass/Vol] 142 mg/dL High 70-99 [facility] Comment on above: Performed By: #### A F5MUT #### [facility] [address] [place] [address] [phone] Website Admin: Carloz Sherwood MD #### PROCAC, TSHX, AT3A, ACARDA, PTT, PT, FT4, PROSAC, GLYHGB, BMPX, CBC, IPF #### [address] [phone] Website Admin: Dallin Avalos MD Potassium [Moles/Vol] 3.9 mmol/L Normal 3.7-5.3 [facility] Comment on above: Performed By: #### A F5MUT #### [address] [phone] Website Admin: Carloz Sherwood MD #### PROCAC, TSHX, AT3A, ACARDA, PTT, PT, FT4, PROSAC, GLYHGB, BMPX, CBC, IPF #### [address] [id number] Website Admin: Dallin Avalos MD Sodium [Moles/Vol] 135 mmol/L Normal 135-144 [facility] Comment on above: Performed By: #### A F5MUT #### [address] [phone] Website Admin: Carloz Sherwood MD #### PROCAC, TSHX, AT3A, ACARDA, PTT, PT, FT4, PROSAC, GLYHGB, BMPX, CBC, IPF #### [address] [id number] Website Admin: Dallin Avalos MD Urea nitrogen [Mass/Vol] 10 mg/dL Normal 8-23 [facility] Comment on above: Performed By: #### A F5MUT #### [address] [id number] Website Admin: Carloz Sherwood MD #### PROCAC, TSHX, AT3A, ACARDA, PTT, PT, FT4, PROSAC, GLYHGB, BMPX, CBC, IPF #### [facility] [address] [place] [phone] Website Admin: Dallin Avalos MD BUN/CRE Ratio NOT REPORTED Normal 12-24 [facility] Comment on above: Performed By: #### A F5MUT #### [facility] [address], [place] [phone] Website Admin: Carloz Sherwood MD #### PROCAC, TSHX, AT3A, ACARDA, PTT, PT, FT4, PROSAC, GLYHGB, BMPX, CBC, IPF #### [address] [address] Website Admin: Dallin Avalos MD Staging: NOT REPORTED Normal [facility] Comment on above: Performed By: #### A F5MUT #### [facility] [address] [place], [place] [phone] Website Admin: Carloz Sherwood MD #### PROCAC, TSHX, AT3A, ACARDA, PTT, PT, FT4, PROSAC, GLYHGB, BMPX, CBC, IPF #### [facility] [address] [place] [phone] Website Admin: Dallin Avalos MD Basic Metabolic Panel w/ Ref paty to MGOrdered By: Kathleen Arreguin on 11-23-2020 Anion gap [Moles/Vol] 13 mmol/L 9 - 17 mmol/L [employer] Phone: Calcium [Mass/Vol] 8.2 mg/dL Low 8.6 - 10. 4 mg/dL [employer] Phone: Chloride [Moles/Vol] 102 mmol/L 98 - 107 mmol/L [employer] Phone: CO2 [Moles/Vol] 20 mmol/L 20 - 31 mmol/L [employer] Phone: Creatinine [Mass/Vol] 0.92 mg/dL High 0.50 - 0.90 mg/dL [employer] Phone: GFR >60 >60 mL/min [employer] Phone: GFR Non- >60 >60 mL/min [facility] Phone: GFR/1.73 sq M.predicted MDRD (S/P/Bld) [Vol rate/Area] [employer] Phone: Comment on above: Average GFR for 60-6 9 years old: 85 mL/min/1.73sq m Chronic Kidney Disease: <60 mL/min/1.73sq m Kidney failure: <15 mL/min/1.73sq m eGFR calculated using average adult body mass. Additional eGFR calculator available at: http://www.[employer]/multiple_crcl_2012.htm GFR/1.73 sq M.predicted MDRD (S/P/Bld) [Vol rate/Area] NOT REPORTED [facility] Phone: Glucose [Mass/Vol] 142 mg/dL High 70 - 99 mg/dL [facility] [employer] Phone: Interpretation and review of laboratory results Abnormal [facility] Phone: Potassium [Moles/Vol] 3.9 mmol/L 3.7 - 5.3 mmol/L [facility] Phone: Sodium [Moles/Vol] 135 mmol/L 135 - 144 mmol/L [facility] Phone: Urea nitrogen (BldV) [Mass/Vol] 10 mg/dL 8 - 23 mg/dL [employer] Phone: Urea nitrogen/Creatinine (Bld) [Mass ratio] NOT REPORTED [facility]: [employer] Phone: CBCon 11-23-2020 Erythrocyte distribution width (RBC) [Ratio] 13.7 % Normal 11.8-14.4 [facility] Comment on above: Performed By: #### P TT #### [address] [address] Website Admin: Dallin Avalos MD Hematocrit (Bld) [Volume fraction] 36.6 % Normal 36.3-47.1 [facility] Comment on above: Performed By: #### P TT #### [address] [address] Website Admin: Dallin Avalos MD Hemoglobin (Bld) [Mass/Vol] 11.2 g/dL Low 11.9-15.1 [facility] Comment on above: Performed By: #### P TT #### [address] [address] Website Admin: Dallin Avalos MD MCH (RBC) [Entitic mass] 28.4 pg Normal 25.2-33.5 [facility] Comment on above: Performed By: #### P TT #### [address] [address] Website Admin: Dallin Avalos MD MCHC (RBC) [Mass/Vol] 30.6 g/dL Normal 28.4-34.8 [facility] Comment on above: Performed By: #### P TT #### [address] [address] Website Admin: Dallin Avalos MD MCV (RBC) [Entitic vol] 92.9 fL Normal 82.6-102.9 [facility] Comment on above: Performed By: #### P TT #### [address] [address] Website Admin: Dallin Avalos MD NRBC Automated 0.0 per 100 WBC Normal 0.0 [facility] Comment on above: Performed By: #### P TT #### [place] [address] [place] [address] Website Admin: Dallin Avalos MD Platelet Count See Reflexed IPF Result Normal 138-453 [facility] Comment on above: Performed By: #### P TT #### [address] [address] Website Admin: Dallin Avalos MD RBC (Bld) [#/Vol] 3.94 10*6/uL Low 3.95-5.11 [facility] Comment on above: Performed By: #### P TT #### [address] [address] Website Admin: Dallin Avalos MD WBC (Bld) [#/Vol] 5.5 10*3/uL Normal 3.5-11.3 [facility] Comment on above: Performed By: #### P TT #### [address] [address] Website Admin: Dallin Avalos MD MPV NOT REPORTED Normal 8.1-13.5 [facility] Comment on above: Performed By: #### P TT #### [address] [address] Website Admin: Dallin Avalos MD CBCOrdered By: Kathleen gregory on 11-23-2020 Hematocrit (Bld) [Volume fraction] 36.6 % 36.3 - 47.1 % [employer] Phone: Hemoglobin.gastrointe stinal spec 1 Ql (Stl) 11.2 g/dL Low 11.9 - 15.1 g/dL [employer] Phone: Interpretation and review of laboratory results Abnormal [employer] Phone: MCH (RBC) [Entitic mass] 28.4 pg 25.2 - 33.5 pg [employer] Phone: MCHC (RBC) [Mass/Vol] 30.6 g/dL 28.4 - 34.8 g/dL [employer] Phone: MCV (RBC) [Entitic vol] 92.9 fL 82.6 - 102.9 fL [employer] Phone: NRBC Automated 0.0 0.0 per 100 WBC [employer] Phone: Platelet distribution width (Bld) [Ratio] 13.7 % 11.8 - 14.4 % [employer] Phone: Platelet mean volume (Bld) [Entitic vol] NOT REPORTED 8.1 - 13.5 fL [employer] Phone: Platelets (Bld) [#/Vol] See Reflexed IPF Result [employer] Phone: RBC (Bld) [#/Vol] 3.94 10*6/uL Low 3.95 - 5.1 1 m/uL [employer] Phone: WBC (Bld) [#/Vol] 5.5 10*3/uL [employer] Phone: [employer] Phone: HEMOGLOBIN [id number] By: Chino Easton on 11-23-2020 Glucose [Mass/Vol] 148 mg/dL [employer] Phone: Comment on above: The ADA and AACC rec ommend providing the estimated average glucose result to permit better patient understanding of their HBA1c result. HbA1c (Bld) [Mass fraction] 6.8 % High 4.0 - 6.0 % [employer] Phone: Interpretation and review of laboratory results Abnormal [employer] Phone: [employer] Phone: Hemoglobin A1Con 11-23-2020 Glucose [Mass/Vol] 148 mg/dL Normal [facility] Comment on above: Result Comment: The ADA and AACC recommend providing the estimated average glucose result to permit better patient understanding of their HBA1c result. Performed By: #### P TT #### [facility] [employer] [address] [place] [phone] Website Admin: Dallin Avalos MD HbA1c (Bld) [Mass fraction] 6.8 % High 4.0-6.0 [facility] Comment on above: Performed By: #### P TT #### [facility] [employer] [address] [place] [phone] Website Admin: Dallin Avalos MD Immature Platelet FractionOr dered By: Kathleen Arreguin on 11-23-2020 Platelet, Fluorescence Platelet clumps present, count appears decreased. [employer] Phone: Comment on above: ORDERED BY LAB Platelet, Immature Fraction NOT REPORTED 1.1 - 10.3 % [employer] Phone: [employer] Phone: No Panel InformationOrdered By: Lyndsay Easton on 11-23-2020 Interpretation and review of laboratory results Abnormal [employer] Phone: [employer] Phone: No Panel InformationOrdered By: Kathleen Arreguin on 11-23-2020 [employer] Phone: PLT, Immature Fract.on 11-23 Platelet, Fluoresc. Platelet clumps present, count appears decreased. Normal 138-453 [facility] Comment on above: Result Comment: ORDE RED BY LAB Performed By: #### P TT #### [facility] [employer] [address] [place] [phone] Website Admin: Dallin Avalos MD PLT, Immature Fract. NOT REPORTED Normal 1.1-10.3 Me [facility] Comment on above: Performed By: #### P TT #### [facility] [employer] [address] [place] [phone] Website Admin: Dallin Avalos MD POC Glucose FingerstickOrder ed By: Lyndsay Easton on 11-23-2020 Glucose [Mass/Vol] 207 mg/dL High 65 - 105 mg/dL [facility]: Interpretation and review of laboratory results Abnormal [employer] Phone: [employer] Phone: Glucose [Mass/Vol] 153 mg/dL High 65 - 105 mg/dL [facility]: Interpretation and review of laboratory results Abnormal [employer] Phone: [employer] Phone: Glucose [Mass/Vol] 111 mg/dL High 65 - 105 mg/dL [facility] Phone: Interpretation and review of laboratory results Abnormal [employer] Phone: [employer] Phone: PTon 11-23-2020 INR Coag (PPP) [Relative time] 1.0 {INR} Normal [facility] Comment on above: Result Comment: Therapeutic Range: Moderate Anticoagulant Intensity: INR = 2.0-3.0 High Anticoagulant Intensity: INR = 2.5-3.5 Performed By: #### A F5MUT #### [employer] [address] [place] [address] Website Admin: Carloz Sherwood MD #### PROCAC, TSHX, AT3A, ACARDA, PTT, PT, FT4, PROSAC, GLYHGB, BMPX, CBC, IPF #### [facility] [employer] [facility] [place] [address] Website Admin: Dallin Avalos MD PT Coag (PPP) [Time] 10.7 s Normal 9.1-12.3 [facility] Comment on above: Performed By: #### A F5MUT #### [employer] [address] [place] [address] Website Admin: Carloz Sherwood MD #### PROCAC, TSHX, AT3A, ACARDA, PTT, PT, FT4, PROSAC, GLYHGB, BMPX, CBC, IPF #### [employer] [address] [place], [place] [id number] Website Admin: Dallin Avalos MD Protein C Activityon 021 Protein C Activity 74 % Low >80 [facility] Comment on above: Result Comment: Patients on warfarin will have decreased functional protein C/S values. Warfarin therapy should be discontinued for two weeks for accurate measurement of functional protein C/S levels. Artifactually elevated levels of functional protein C/S may be seen in patients receiving heparin,rivaroxaban,apixaban,edozaban,and dabiqatran. Decreased functionality may be seen in patients with abnormally elevated levels of Factor VIII. Performed By: #### P TT #### [facility] [employer] [address] [place] [address] [phone] Website Admin: Dallin Avalos MD Protein C FunctionalOrdered By: Lyndsay Easton on 11-23-2020 Protein C Activity 74 % Low >80 [facility] [employer] Phone: Comment on above: Patients on warfarin will have decreased functional protein C/S values. Warfarin therapy should be discontinued for two weeks for accurate measurement of functional protein C/S levels. Artifactually elevated levels of functional protein C/S may be seen in patients receiving heparin,rivaroxaban,apixaban,edozaban,and dabiqatran. Decreased functionality may be seen in patients with abnormally elevated levels of Factor VIII. Protein S Activityon 021 Protein S Activity 124 % Normal 59-130 [facility] Comment on above: Result Comment: Patients on warfarin will have decreased functional protein C/S values. Warfarin therapy should be discontinued for two weeks for accurate measurement of functional protein C/S levels. Artifactually elevated levels of functional protein C/S may be seen in patients receiving heparin,rivaroxaban,apixaban,edozaban,and dabiqatran. Decreased functionality may be seen in patients with abnormally elevated levels of Factor VIII. Performed By: #### P TT #### [employer] [address] [place] [address] Website Admin: Dallin Avalos MD Protein S FunctionalOrdered By: Lyndsay Easton on 11-23-2020 Protein S Activity 124 % 59 - 130 % [employer] Phone: Comment on above: Patients on warfarin will have decreased functional protein C/S values. Warfarin therapy should be discontinued for two weeks for accurate measurement of functional protein C/S levels. Artifactually elevated levels of functional protein C/S may be seen in patients receiving heparin,rivaroxaban,apixaban,edozaban,and dabiqatran. Decreased functionality may be seen in patients with abnormally elevated levels of Factor VIII. [employer] Phone: Protime-INROrdered By: Roxy Arreguin on 11-23-2020 INR Coag (Bld) [Relative time] 1.0 {INR} [employer] Phone: Comment on above: Therapeutic Range: Moderate Anticoagulant Intensity: INR = 2.0-3.0 High Anticoagulant Intensity: INR = 2.5-3.5 PT Coag (PPP) [Time] 10.7 s [employer] Phone: SARS-CoV-19 Abon 11-23-2020 SARS-CoV-2 (COVID-19) Ab IA Ql Negative Normal NEG [facility] Comment on above: Result Comment: Negative results do not rule out SARS-CoV-2 infection, particularly in those who have been in contact with the virus. Follow-up testing with a molecular diagnostic should be considered to rule out infection in these individuals. Results from antibody testing should not be used as the sole basis to diagnose or exclude SARS-CoV-2 infection or to inform infection status. This test has been authorized by the FDA under an Emergency Use Authorization (EUA) for use by authorized laboratories. Fact sheet for Healthcare Providers: https://www.fda.gov/media/931069/download Fact sheet for Patients: https://www.fda.gov/media/539881/download METHODOLOGY: ECIA Performed By: #### C OVAB #### [employer] [address] [place], [place] [id number] Website Admin: Dallin Avalos MD T4, FreeOrdered By: Kathleen Arreguin on 11-23-2020 Thyroxine, Free 1.28 ng/dL 0.93 - 1.70 ng/dL [employer] Phone: [employer] Phone: TSH w/reflex to FT4on 2020 TSH Qn 7.60 m[IU]/L High 0.30-5.00 [facility] Comment on above: Performed By: #### A F5MUT #### [facility] [address] [place] [address] Website Admin: Carloz Sherwood MD #### PROCAC, TSHX, AT3A, ACARDA, PTT, PT, FT4, PROSAC, GLYHGB, BMPX, CBC, IPF #### [employer] [facility] [place], [place] [id number] Website Admin: Dallin Avalos MD TSH with ReflexOrdered By: Brant Easton on 11-23-2020 Interpretation and review of laboratory results Abnormal [facility]: TSH Qn 7.60 m[IU]/L High [facility]: [employer] Phone: Thyroxine, Freeon 11-23-2020 Thyroxine, Free 1.28 ng/dL Normal 0.93-1.70 [facility] Comment on above: Performed By: #### P TT #### [employer] [address] [place] [address] Website Admin: Dallin Avalos MD US GALLBLADDER RUQon 021 US GALLBLADDER RUQ EXAMINATION: RIGHT UPPER QUADRANT ULTRASOUND 11/23/2020 7:47 am COMPARISON: None. HISTORY: ORDERING SYSTEM PROVIDED HISTORY: Possible stranding on CT abd at the site GB FINDINGS: LIVER: The liver demonstrates normal echogenicity without evidence of intrahepatic biliary ductal dilatation. Liver length is 16.4 cm. Portal vein demonstrates hepatopetal flow. BILIARY SYSTEM: Gallbladder is unremarkable without evidence of pericholecystic fluid, wall thickening or stones. Negative sonographic Loera's sign. Common bile duct is within normal limits measuring 3 mm. RIGHT KIDNEY: The right kidney is grossly unremarkable without evidence of hydronephrosis. Right renal length is 8.9 cm is PANCREAS: Visualized portions of the pancreas are unremarkable. OTHER: No evidence of right upper quadrant ascites. IMPRESSION: Negative right upper quadrant ultrasound. Interpreted by: Genie Soliz MD Signed by: Genie Soliz MD 11/23/20 Final result Normal [facility] US GALLBLADDER RUQOrdered By : Lyndsay Easton on 11-23-2020 Negative right upper quadrant ultrasound. [employer] Phone: EXAMINATION: RIGHT UPPER QUADRANT ULTRASOUND 11/23/2020 7:47 am COMPARISON: None. HISTORY: ORDERING SYSTEM PROVIDED HISTORY: Possible stranding on CT abd at the site GB FINDINGS: LIVER: The liver demonstrates normal echogenicity without evidence of intrahepatic biliary ductal dilatation. Liver length is 16.4 cm. Portal vein demonstrates hepatopetal flow. BILIARY SYSTEM: Gallbladder is unremarkable without evidence of pericholecystic fluid, wall thickening or stones. Negative sonographic Loera's sign. Common bile duct is within normal limits measuring 3 mm. RIGHT KIDNEY: The right kidney is grossly unremarkable without evidence of hydronephrosis. Right renal length is 8.9 cm is PANCREAS: Visualized portions of the pancreas are unremarkable. OTHER: No evidence of right upper quadrant ascites. [employer] Phone: Stanislav, Mhpn Incoming Radiant Results From [employer] - 11/23/2020 8:38 AM EDT EXAMINATION: RIGHT UPPER QUADRANT ULTRASOUND 11/23/2020 7:47 am COMPARISON: None. HISTORY: ORDERING SYSTEM PROVIDED HISTORY: Possible stranding on CT abd at the site GB FINDINGS: LIVER: The liver demonstrates normal echogenicity without evidence of intrahepatic biliary ductal dilatation. Liver length is 16.4 cm. Portal vein demonstrates hepatopetal flow. BILIARY SYSTEM: Gallbladder is unremarkable without evidence of pericholecystic fluid, wall thickening or stones. Negative sonographic Loera's sign. Common bile duct is within normal limits measuring 3 mm. RIGHT KIDNEY: The right kidney is grossly unremarkable without evidence of hydronephrosis. Right renal length is 8.9 cm is PANCREAS: Visualized portions of the pancreas are unremarkable. OTHER: No evidence of right upper quadrant ascites. IMPRESSION: Negative right upper quadrant ultrasound. [employer] Phone: [employer] Phone: APTTon 11-22-2020 aPTT Coag (Bld) [Time] 66.1 s High 20.5-30.5 [facility] Comment on above: Result Comment: IV Heparin Therapy Range: 48.6-77.8 Performed By: #### P TT, CBC, GLYHGB #### [facility] [address] [place] [id number] Website Admin: Dallin Avalos MD aPTT Coag (Bld) [Time] 75.9 s High 20.5-30.5 [facility] Comment on above: Result Comment: IV Heparin Therapy Range: 48.6-77.8 Performed By: #### P TT #### [employer] [address] [place] [id number] Website Admin: Dallin Avalos MD aPTT Coag (Bld) [Time] s Critically high 20.5-30.5 [facility] Comment on above: Result Comment: IV Heparin Therapy Range: 48.6-77.8 Performed By: #### P TT, CBC, GLYHGB #### [employer] [address] [place] [id number] Website Admin: Dallin Avalos MD APTTOrdered By: Lyndsay Easton on 11-22-2020 aPTT Coag (Bld) [Time] 66.1 s High [employer] Phone: Comment on above: IV Heparin Therapy Range: 48.6-77.8 Interpretation and review of laboratory results Abnormal [employer] Phone: [employer] Phone: aPTT Coag (Bld) [Time] 75.9 s High [employer] Phone: Comment on above: IV Heparin Therapy Range: 48.6-77.8 Interpretation and review of laboratory results Abnormal [employer] Phone: [employer] Phone: APTTOrdered By: Kathleen shoemaker on 11-22-2020 aPTT Coag (Bld) [Time] s Critically high [employer] Phone: Comment on above: IV Heparin Therapy Range: 48.6-77.8 Interpretation and review of laboratory results Abnormal [employer] Phone: [employer] Phone: CBCon 11-22-2020 Erythrocyte distribution width (RBC) [Ratio] 13.5 % Normal 11.8-14.4 [facility] Comment on above: Performed By: #### P TT, CBC, GLYHGB #### [facility] [employer] [address] [place] [id number] Website Admin: Dallin Avalos MD Hematocrit (Bld) [Volume fraction] 36.9 % Normal 36.3-47.1 [facility] Comment on above: Performed By: #### P TT, CBC, GLYHGB #### [facility] [employer] [address] [place], [place] [phone] Website Admin: Dallin Avalos MD Hemoglobin (Bld) [Mass/Vol] 11.5 g/dL Low 11.9-15.1 [facility] Comment on above: Performed By: #### P TT, CBC, GLYHGB #### [facility] [employer] [address] [place] [id number] Website Admin: Dallin Avalos MD MCH (RBC) [Entitic mass] 28.8 pg Normal 25.2-33.5 [facility] Comment on above: Performed By: #### P TT, CBC, GLYHGB #### [address] [address] Website Admin: Dallin Avalos MD MCHC (RBC) [Mass/Vol] 31.2 g/dL Normal 28.4-34.8 [facility] Comment on above: Performed By: #### P TT, CBC, GLYHGB #### [address] [address] Website Admin: Dallin Avalos MD MCV (RBC) [Entitic vol] 92.3 fL Normal 82.6-102.9 [facility] Comment on above: Performed By: #### P TT, CBC, GLYHGB #### [address] [address] Website Admin: Dallin Avalos MD NRBC Automated 0.0 per 100 WBC Normal 0.0 [facility] Comment on above: Performed By: #### P TT, CBC, GLYHGB #### [address] [address] Website Admin: Dallin Avalos MD Platelet mean volume (Bld) [Entitic vol] 10.6 fL Normal 8.1-13.5 [facility] Comment on above: Performed By: #### P TT, CBC, GLYHGB #### [address] [address] Website Admin: Dallin Avalos MD Platelets (Bld) [#/Vol] 207 10*3/uL Normal 138-453 [facility] Comment on above: Performed By: #### P TT, CBC, GLYHGB #### [address] [address] Website Admin: Dallin Avalos MD RBC (Bld) [#/Vol] 4.00 10*6/uL Normal 3.95-5.11 [facility] Comment on above: Performed By: #### P TT, CBC, GLYHGB #### [employer] [address] [place], [place] [phone] Website Admin: Dallin Avalos MD WBC (Bld) [#/Vol] 6.0 10*3/uL Normal 3.5-11.3 [facility] Comment on above: Performed By: #### P TT, CBC, GLYHGB #### [employer] [address] [place], [place] [phone] Website Admin: Dallin Avalos MD CBCOrdered By: Kathleen gregory on 11-22-2020 Hematocrit (Bld) [Volume fraction] 36.9 % 36.3 - 47.1 % [employer] Phone: Hemoglobin.gastrointe stinal spec 1 Ql (Stl) 11.5 g/dL Low 11.9 - 15.1 g/dL [employer] Phone: Interpretation and review of laboratory results Abnormal [employer] Phone: MCH (RBC) [Entitic mass] 28.8 pg 25.2 - 33.5 pg [employer] Phone: MCHC (RBC) [Mass/Vol] 31.2 g/dL 28.4 - 34.8 g/dL [employer] Phone: MCV (RBC) [Entitic vol] 92.3 fL 82.6 - 102.9 fL [employer] Phone: NRBC Automated 0.0 0.0 per 100 WBC [employer] Phone: Platelet distribution width (Bld) [Ratio] 13.5 % 11.8 - 14.4 % [employer] Phone: Platelet mean volume (Bld) [Entitic vol] 10.6 fL 8.1 - 13.5 fL [employer] Phone: Platelets (Bld) [#/Vol] 207 10*3/uL [employer] Phone: RBC (Bld) [#/Vol] 4.00 10*6/uL 3.95 - 5.1 1 m/uL [employer] Phone: WBC (Bld) [#/Vol] 6.0 10*3/uL [employer] Phone: [employer] Phone: Covid-19, Antibody, TotalOrd ered By: Lyndsay Easton on 11-22-2020 SARS-CoV-2 (COVID-19) RNA SUJATA+probe Ql (Unsp spec) Negative NEGATIVE [employer] Phone: Comment on above: Negative results do not rule out SARS-CoV-2 infection, particularly in those who have been in contact with the virus. Follow-up testing with a molecular diagnostic should be considered to rule out infection in these individuals. Results from antibody testing should not be used as the sole basis to diagnose or exclude SARS-CoV-2 infection or to inform infection status. This test has been authorized by the FDA under an Emergency Use Authorization (EUA) for use by authorized laboratories. Fact sheet for Healthcare Providers: https://www.fda.gov/media/208259/download Fact sheet for Patients: https://www.fda.gov/media/429918/download METHODOLOGY: MINA [employer] Phone: Hemoglobin A1Con 11-22-2020 Glucose [Mass/Vol] 143 mg/dL Normal [facility] Comment on above: Result Comment: The ADA and AACC recommend providing the estimated average glucose result to permit better patient understanding of their HBA1c result. Performed By: #### P TT, CBC, GLYHGB #### [employer] [address] [place] [id number] Website Admin: Dallin Avalos MD HbA1c (Bld) [Mass fraction] 6.6 % High 4.0-6.0 [facility] Comment on above: Performed By: #### P TT, CBC, GLYHGB #### [employer] [address] [place] [address] Website Admin: Dallin Avalos MD Hemoglobin V1fUnhkypi By: Paula Arreguin on 11-22-2020 Glucose [Mass/Vol] 143 mg/dL [employer] Phone: Comment on above: The ADA and AACC rec ommend providing the estimated average glucose result to permit better patient understanding of their HBA1c result. HbA1c (Bld) [Mass fraction] 6.6 % High 4.0 - 6.0 % [employer] Phone: Interpretation and review of laboratory results Abnormal [employer] Phone: [employer] Phone: POC Glucose FingerstickOrder ed By: Lyndsay Easton on 11-22-2020 Glucose [Mass/Vol] 144 mg/dL High 65 - 105 mg/dL [employer] Phone: Interpretation and review of laboratory results Abnormal [employer] Phone: [employer] Phone: Glucose [Mass/Vol] 126 mg/dL High 65 - 105 mg/dL [employer] Phone: Interpretation and review of laboratory results Abnormal [employer] Phone: [employer] Phone: Glucose [Mass/Vol] 122 mg/dL High 65 - 105 mg/dL [facility] [employer] Phone: Interpretation and review of laboratory results Abnormal [employer] Phone: [employer] Phone: Glucose [Mass/Vol] 96 mg/dL 65 - 105 mg/dL [employer] Phone: [employer] Phone: Glucose [Mass/Vol] 83 mg/dL 65 - 105 mg/dL [employer] Work Phone: [facility] [employer] Phone: VL DUP LOWER EXTREMITY VENOU S BILATERALOrdered By: Lyndsay Easton on 11-22-2020 Stanislav, pn Incoming Cardio Results From [employer] - 11/22/2020 6:26 PM EDT [facility] Vascular Lower Extremities DVT Study Procedure Patient Name CANELA Date of Study 11/22/2020 SABINA Davidson Date of 1950 Gender Female Age 69 year(s) Race Room Number 3010 Height: 60 inch, 152.4 cm Corporate ID [id number] Weight: 212 pounds, 96.2 kg # Patient Acct [id number] BSA: 1.91 m^2 BMI: 41.4 kg/m^2 # MR # [id number] Executive Compensation Analyst Wen Crenshaw RVT Interpreting Physician Parth Noble Referring Referring Physician Lyndsay Easton Nurse Practitioner Procedure Type of Study: Veins: Lower Extremities DVT Study, Venous Scan Lower Bilateral. Indications for Study:Pulmonary Embolism. Patient Status:In Patient. Conclusions Summary No evidence of superficial or deep venous thrombosis in both lower extremities. Signature - - - - Findings: Right Impression: Left Impression: The common femoral, femoral, The common femoral, femoral, popliteal and tibial veins popliteal and tibial veins demonstrate normal compressibility demonstrate normal compressibility and augmentation. and augmentation. Normal compressibility of the great Normal compressibility of the great saphenous vein. saphenous vein. Normal compressibility of the small Normal compressibility of the small saphenous vein. saphenous vein. Risk Factors - The patient's risk factor(s) include: diabetes mellitus, dyslipidemia and arterial hypertension. Velocities are measured in cm/s ; Diameters are measured in cm Right Lower Extremities DVT Study Measurements Right 2D Measurements + +---- ------+ -+ + !Location !Visualized!Compressi bility!Thrombosis! + +---- ------+ -+ + !Common Femoral !Yes !Yes !None ! + +---- ------+ -+ + !Prox Femoral !Yes !Yes !None ! + +---- ------+ -+ + !Mid Femoral !Yes !Yes !None ! + +---- ------+ -+ + !Dist Femoral !Yes !Yes !None ! + +---- ------+ -+ + !Popliteal !Yes !Yes !None ! + +---- ------+ -+ + !Sapheno Femoral Junction !Yes !Yes !None ! + +---- ------+ -+ + !PTV !Yes !Yes !None ! + +---- ------+ -+ + !Peroneal !Yes !Yes !None ! + +---- ------+ -+ + !Gastroc !Yes !Yes !None ! + +---- ------+ -+ + !GSV Thigh !Yes !Yes !None ! + +---- ------+ -+ + !GSV Knee !Yes !Yes !None ! + +---- ------+ -+ + !GSV Ankle !Yes !Yes !None ! + +---- ------+ -+ + !SSV !Yes !Yes !None ! + +---- ------+ -+ + Right Doppler Measurements + -------+------+------ + + !Location !Signal!Reflux!Reflux (msec) ! + -------+------+------ + + !Common Femoral !Phasic! ! ! + -------+------+------ + + !Prox Femoral !Phasic! ! ! + -------+------+------ + + !Popliteal !Phasic! ! ! + -------+------+------ + + Left Lower Extremities DVT Study Measurements Left 2D Measurements + +---- ------+ -+ + !Location !Visualized!Compressi bility!Thrombosis! + +---- ------+ -+ + !Common Femoral !Yes !Yes !None ! + +---- ------+ -+ + !Prox Femoral !Yes !Yes !None ! + +---- ------+ -+ + !Mid Femoral !Yes !Yes !None ! + (more content not included)... [employer] Phone: [employer] Phone: APTTOrdered By: Antonio yT on 11-21-2020 aPTT Coag (Bld) [Time] 33.0 s [employer] Phone: Comment on above: IV Heparin Therapy Range: 62.0-94.0 [employer] Phone: AmylaseOrdered By: Antonio anthony on 11-21-2020 Amylase [Catalytic activity/Vol] 22 U/L Low 28 - 100 U/L [employer] Phone: CBC auto differentialOrdered By: Antonio Ty on 11-21-2020 [employer] # 0.10 [employer] Work Phone: [employer] Immature Granulocyte NOT REPORTED [employer] Work Phone: [employer] Lymph # 1.40 [employer] [facility] Work Phone: [employer] [place] # 0.90 [employer] [facility] Work Phone: Basophils (Bld) [#/Vol] 0.00 10*3/uL [employer] Work Phone: Basophils/100 WBC (Bld) 0 % 0 - 2 % [employer] Work Phone: Differential Type YES [employer] Work Phone: Eosinophils/100 WBC (Bld) 1 % 0 - 5 % [employer] Work Phone: Hematocrit (Bld) [Volume fraction] 36.4 % 36 - 46 % [employer] Work Phone: Hemoglobin.gastrointe stinal spec 1 Ql (Stl) 12.1 g/dL 12.0 - 16.0 g/dL [employer] Work Phone: Immature Granulocytes NOT REPORTED 0 % M [employer] Work Phone: Interpretation and review of laboratory results Abnormal [employer] Phone: Lymphocytes/100 WBC (Bld) 18 % 15 - 40 % [employer] Phone: MCH (RBC) [Entitic mass] 28.7 pg 26 - 34 pg [employer] Work Phone: MCHC (RBC) [Mass/Vol] 33.3 g/dL 31 - 37 g/dL M [employer] Work Phone: MCV (RBC) [Entitic vol] 86.4 fL 80 - 100 fL [employer] Work Phone: Monocytes/100 WBC (Bld) 12 % High 4 - 8 % [employer] Work Phone: NRBC Automated NOT REPORTED per 100 WBC [employer] Work Phone: Platelet distribution width (Bld) [Ratio] 14.6 % 12.1 - 15.2 % [employer] Phone: Platelet Estimate NOT REPORTED [employer] Phone: Platelet mean volume (Bld) [Entitic vol] NOT REPORTED 6.0 - 12.0 fL [employer] Phone: Platelets (Bld) [#/Vol] 165 10*3/uL [employer] Phone: RBC (Bld) [#/Vol] 4.22 10*6/uL 4.0 - 5.2 m/uL [employer] Work Phone: RBC (Bld) [#/Vol] NOT REPORTED [employer] Phone: Segmented neutrophils/100 WBC (Bld) 69 % 47 - 75 % [employer] Phone: Segs [employer] 5.50 [employer] Work Phone: WBC (Bld) [#/Vol] 7.9 10*3/uL [employer] Phone: WBC (Bld) [#/Vol] NOT REPORTED [employer] Phone: [employer] Work Phone: COVID-19, RapidOrdered By: Brant Ty on 11-21-2020 SARS-CoV-2 (COVID-19) RNA SUJATA+probe Ql (Unsp spec) Not detected Not Detected [employer] Phone: Comment on above: Rapid NAAT: The specimen is NEGATIVE for SARS-CoV-2, the novel coronavirus associated with COVID-19. The ID NOW COVID-19 assay is designed to detect the virus that causes COVID-19 in patients with signs and symptoms of infection who are suspected of COVID-19. An individual without symptoms of COVID-19 and who is not shedding SARS-CoV-2 virus would expect to have a negative (not detected) result in this assay. Negative results should be treated as presumptive and, if inconsistent with clinical signs and symptoms or necessary for patient management, should be tested with an alternative molecular assay. Negative results do not preclude SARS-CoV-2 infection and should not be used as the sole basis for patient management decisions. Fact sheet for Healthcare Providers: https://www.[employer].gov/media/039733/download Fact sheet for Patients: https://www.fda.gov/media/885928/download Methodology: Isothermal Nucleic Acid Amplification Specimen Description .NASOPHARYNGEAL SWAB [employer] Phone: [employer] Phone: CT ABDOMEN PELVIS W IV CONTR AST Additional Contrast? NoneOrdered By: Antonio Ty on 11-21-2020 Left lower lobe pneumonia and adjacent small effusion. Questionably in the right lung base there could be partially shown PEs although more likely this could be artifactual. Correlate with clinical/laboratory findings consider and CTA PE study to further evaluate. No specific finding in the left upper quadrant of the abdomen. Question of slight stranding around gallbladder, as well as nondilated appendix although these could be artifactual secondary to slight motion. Correlate with symptoms. (Above discussed with Dr. Ty on 11/21/2020 at 4:09 PM) Incidental findings below: Mild left iliac adenopathy and additional prominent lymph nodes described above. Consider short-term follow-up. Other incidental findings including indeterminate right adrenal nodule [employer] Phone: CT ABDOMEN PELVIS W IV CONTRAST 11/21/2020 3:35 PM EDT Indication: Left upper quadrant pain Comparison: None Dose reduction achieved by using automated exposure control and/or adjustment of mA and/or kV according to patient size and/or use of iterative reconstruction. [employer] atelectasis and left basilar consolidation. Small left and trace right pleural effusion. On the uppermost images there is questionable pulmonary artery filling defect in the right lower lobe versus artifact. Question mild stranding around nondilated gallbladder. Unremarkable liver and spleen. Mild pancreatic calcifications. Right adrenal 2.7 x 1.5 cm nodule. Slight left adrenal nodularity/thickening . No acute renal findings. Nondilated appendix in the right lower quadrant, assessment of which is limited due to motion artifact, likely producing artifactual stranding. No definite acute bowel pathology. No free air. No free fluid. Mildly enlarged left iliac lymph node. Multiple retroperitoneal nodes are greater in number than typically seen. Moderate atherosclerotic disease. Multilevel spondylosis without acute osseous findings. [employer] Phone: Stanislav, Mhpn Incoming Radiant Results From [employer] - 11/21/2020 4:[address] ABDOMEN PELVIS W IV CONTRAST 11/21/2020 3:35 PM EDT Indication: Left upper quadrant pain Comparison: None Dose reduction achieved by using automated exposure control and/or adjustment of mA and/or kV according to patient size and/or use of iterative reconstruction. Bibasilar atelectasis and left basilar consolidation. Small left and trace right pleural effusion. On the uppermost images there is questionable pulmonary artery filling defect in the right lower lobe versus artifact. Question mild stranding around nondilated gallbladder. Unremarkable liver and spleen. Mild pancreatic calcifications. Right adrenal 2.7 x 1.5 cm nodule. Slight left adrenal nodularity/thickening . No acute renal findings. Nondilated appendix in the right lower quadrant, assessment of which is limited due to motion artifact, likely producing artifactual stranding. No definite acute bowel pathology. No free air. No free fluid. Mildly enlarged left iliac lymph node. Multiple retroperitoneal nodes are greater in number than typically seen. Moderate atherosclerotic disease. Multilevel spondylosis without acute osseous findings. IMPRESSION: Left lower lobe pneumonia and adjacent small effusion. Questionably in the right lung base there could be partially shown PEs although more likely this could be artifactual. Correlate with clinical/laboratory findings consider and CTA PE study to further evaluate. No specific finding in the left upper quadrant of the abdomen. Question of slight stranding around gallbladder, as well as nondilated appendix although these could be artifactual secondary to slight motion. Correlate with symptoms. (Above discussed with Dr. Ty on 11/21/2020 at 4:09 PM) Incidental findings below: Mild left iliac adenopathy and additional prominent lymph nodes described above. Consider short-term follow-up. Other incidental findings including indeterminate right adrenal nodule [employer] Phone: [employer] Phone: CTA CHEST W CONTRASTOrdered By: Antonio Ty on 11-21-2020 1. Examination positive for pulmonary emboli. Pulmonary emboli predominantly right-sided involving the right main pulmonary artery, right upper lobe, right middle lobe, and right lower lobe pulmonary arterial branches. There are also small filling defects noted within several left upper and lower lobe pulmonary arterial branches. There is mild straightening of the interventricular septum, raising possibility of RV strain. 2. Trace left pleural effusion with mild left basilar airspace opacity. 3. Several prominent, but subcentimeter short axis dimension, mediastinal hilar lymph nodes. There are also several enlarged bilateral axillary lymph nodes (bilateral axillary lymphadenopathy). Axillary lymphadenopathy requires further evaluation/workup. I discussed critical findings with Dr. Ty in the emergency department at 5:47 PM on 11/21/2020. [employer] Phone: CT chest with contrast (CT Pulmonary Angiogram) CLINICAL: Shortness of breath. TECHNIQUE: Contiguous transaxial images obtained from the lung apices through diaphragms following the administration of intravenous contrast without incident. CT angiographic reconstructions of the pulmonary arteries including multiple intensity projections is were performed. Angiographic reconstructions performed with radiologist input and supervision. Dose reduction: mA and/or kV are were adjusted by automated exposure control software based upon patients height and weight. FINDINGS: There are no prior exams for comparison. There is a trace left pleural effusion with mild left basilar airspace opacity. There is minimal right basilar pleural thickening. Cardiac size is within normal limits. There is mild flattening of the interventricular septum. There is no pericardial effusion. There is no coronary artery atherosclerosis. The thoracic aorta is patent and without aneurysm or dissection. Filling defects are noted within the right main pulmonary artery and involve right upper lobe, right middle lobe, and right lower lobe pulmonary arterial branches. Small filling defects are also noted within left upper and lower lobe pulmonary arterial branches. There is no central saddle pulmonary embolism. There are several prominent, but subcentimeter short axis dimension, mediastinal and hilar lymph nodes. However, there are also several enlarged bilateral axillary lymph nodes. Limited evaluation of the upper abdomen demonstrates no acute abnormality. There is no acute osseous abnormality of the bony thorax. [employer] Phone: Stanislav, Mhpn Incoming Radiant Results From [employer] - 11/21/2020 5:[address] chest with contrast (CT Pulmonary Angiogram) CLINICAL: Shortness of breath. TECHNIQUE: Contiguous transaxial images obtained from the lung apices through diaphragms following the administration of intravenous contrast without incident. CT angiographic reconstructions of the pulmonary arteries including multiple intensity projections is were performed. Angiographic reconstructions performed with radiologist input and supervision. Dose reduction: mA and/or kV are were adjusted by automated exposure control software based upon patients height and weight. FINDINGS: There are no prior exams for comparison. There is a trace left pleural effusion with mild left basilar airspace opacity. There is minimal right basilar pleural thickening. Cardiac size is within normal limits. There is mild flattening of the interventricular septum. There is no pericardial effusion. There is no coronary artery atherosclerosis. The thoracic aorta is patent and without aneurysm or dissection. Filling defects are noted within the right main pulmonary artery and involve right upper lobe, right middle lobe, and right lower lobe pulmonary arterial branches. Small filling defects are also noted within left upper and lower lobe pulmonary arterial branches. There is no central saddle pulmonary embolism. There are several prominent, but subcentimeter short axis dimension, mediastinal and hilar lymph nodes. However, there are also several enlarged bilateral axillary lymph nodes. Limited evaluation of the upper abdomen demonstrates no acute abnormality. There is no acute osseous abnormality of the bony thorax. IMPRESSION: 1. Examination positive for pulmonary emboli. Pulmonary emboli predominantly right-sided involving the right main pulmonary artery, right upper lobe, right middle lobe, and right lower lobe pulmonary arterial branches. There are also small filling defects noted within several left upper and lower lobe pulmonary arterial branches. There is mild straightening of the interventricular septum, raising possibility of RV strain. 2. Trace left pleural effusion with mild left basilar airspace opacity. 3. Several prominent, but subcentimeter short axis dimension, mediastinal hilar lymph nodes. There are also several enlarged bilateral axillary lymph nodes (bilateral axillary lymphadenopathy). Axillary lymphadenopathy requires further evaluation/workup. I discussed critical findings with Dr. Ty in the emergency department at 5:47 PM on 11/21/2020. [employer] Work Phone: [employer] Phone: Comprehensive Metabolic w/ B jefe Profile w/ Reflex to MGOrdered By: Antonio Ty on 11-21-2020 Albumin [Mass/Vol] 3.6 g/dL 3.5 - 5.2 g/dL [facility]: Albumin/Globulin Ratio NOT REPORTED [facility]: ALP (Bld) [Catalytic activity/Vol] 96 U/L 35 - 104 U/L [facility]: ALT [Catalytic activity/Vol] 11 U/L 5 - 33 U/L [employer] Phone: Anion gap [Moles/Vol] 10 mmol/L 9 - 17 mmol/L [employer] Phone: AST [Catalytic activity/Vol] 18 U/L <[address] [facility]: Bilirubin [Mass/Vol] 0.61 mg/dL 0.30 - 1.20 mg/dL [facility]: Bilirubin, Indirect 0.39 mg/dL 0.00 - 1 .00 mg/dL [employer] Phone: Bilirubin.indirect [Mass/Vol] 0.22 mg/dL <0.31 [employer] Phone: Calcium [Mass/Vol] 9.5 mg/dL 8.6 - 10. 4 mg/dL [facility]: Chloride [Moles/Vol] 98 mmol/L 98 - 107 mmol/L [employer] Phone: CO2 [Moles/Vol] 25 mmol/L 20 - 31 mmol/L [employer] Phone: Creatinine [Mass/Vol] 0.99 mg/dL High 0.50 - 0.90 mg/dL [employer] Phone: Free PSA/Total PSA [Mass fraction] 7.1 g/dL 6.4 - 8.3 g/dL [employer] Phone: GFR >60 >60 mL/min [employer] Phone: GFR Non- 56 mL/min Low >[address] [facility]: GFR/1.73 sq M.predicted MDRD (S/P/Bld) [Vol rate/Area] [facility]: Comment on above: Average GFR for 60-6 9 years old: 85 mL/min/1.73sq m Chronic Kidney Disease: <60 mL/min/1.73sq m Kidney failure: <15 mL/min/1.73sq m eGFR calculated using average adult body mass. Additional eGFR calculator available at: http://www.[employer]/multiple_crcl_2012.htm GFR/1.73 sq M.predicted MDRD (S/P/Bld) [Vol rate/Area] NOT REPORTED [facility]: Glucose [Mass/Vol] 102 mg/dL High 70 - 99 mg/dL [facility] [employer] Phone: Potassium [Moles/Vol] 3.8 mmol/L 3.7 - 5.3 mmol/L [facility]: Sodium [Moles/Vol] 133 mmol/L Low 135 - 144 mmol/L [facility]: Urea nitrogen (BldV) [Mass/Vol] 10 mg/dL 8 - 23 mg/dL [facility] Phone: Lactate, SepsisOrdered By: Brant Ty on 11-21-2020 Lactic Acid, Sepsis 0.7 mmol/L 0.5 - 1. 9 mmol/L [facility] Phone: Lactic Acid, Sepsis, Whole Blood NOT REPORTED 0.5 - 1.9 mmol/L [facility]: [employer] Phone: LipaseOrdered By: Antonio hooper on 11-21-2020 Lipase [Catalytic activity/Vol] 36 U/L 13 - 60 U/L [facility] Work Phone: Microscopic UrinalysisOrdere d By: Antonio Ty on 11-21-2020 - [facility] Work Phone: Amorphous, UA NOT REPORTED None [facility] Work Phone: Bacteria, UA 1+ Abnormal None [facility] Work Phone: Casts UA NOT REPORTED /LPF [facility] Work Phone: Crystals, UA NOT REPORTED None /HPF [facility] Work Phone: Epithelial Cells UA 5 TO 10 /HPF [facility] Work Phone: Interpretation and review of laboratory results Abnormal [facility] Work Phone: Mucus, UA 1+ Abnormal None [facility] Work Phone: Other Observations UA NOT REPORTED NOT REQ. [facility] Work Phone: RBC, UA NOT REPORTED [facility] Work Phone: Renal Epithelial, UA NOT REPORTED 0 /HPF [facility] Work Phone: Trichomonas, UA NOT REPORTED None [facility] Work Phone: WBC, UA 5 TO 10 0 /HPF [facility] Work Phone: Yeast, UA NOT REPORTED None [facility] Work Phone: [facility] Work Phone: No Panel InformationOrdered By: Antonio Ty on 11-21-2020 Interpretation and review of laboratory results Abnormal [facility] Work Phone: [facility] Work Phone: Protime-INROrdered By: Antonio Ty on 11-21-2020 INR Coag (Bld) [Relative time] 1.1 {INR} [facility] Work Phone: Comment on above: Non-therapeutic Range: INR = 0.9-1.2 Therapeutic Range: Moderate Anticoagulant Intensity: INR = 2.0-3.0 High Anticoagulant Intensity: INR = 2.5-3.5 PT Coag (PPP) [Time] 13.6 s [facility] Work Phone: [facility] Work Phone: TroponinOrdered By: Antonio Flores on 11-21-2020 Interpretation and review of laboratory results Abnormal [facility] Work Phone: Troponin Interp NOT REPORTED [facility] Work Phone: Troponin T NOT REPORTED <0.03 ng/mL [facility] Work Phone: Troponin, High Sensitivity 22 ng/L High 0 - 14 ng/L [facility] Work Phone: Comment on above: High Sensitivity Troponin values cannot be compared with other Troponin methodologies. Patients with high levels of Biotin oral intake (i.e >5mg/day) may have falsely decreased Troponin levels. Samples collected within 8 hours of biotin intake may require additional information for diagnosis. [employer] [facility] Work Phone: Urinalysis Reflex to Culture Ordered By: Antonio Ty on 11-21-2020 Bilirubin Urine Negative NEGATIVE [facility] Work Phone: Color, UA YELLOW YELLOW [facility] Work Phone: Glucose, Ur Negative NEGATIVE [facility] Work Phone: Interpretation and review of laboratory results Abnormal [facility] Work Phone: Ketones Ql (U) TRACE Abnormal NEGATIVE [facility] Work Phone: Leukocyte esterase Test strip Ql (U) 2+ Abnormal NEGATIVE [facility] Work Phone: Nitrite, Urine Negative NEGATIVE [facility] Work Phone: pH, UA 7.0 [facility] Work Phone: Protein, UA TRACE Abnormal NEGATIVE [facility] Work Phone: Specific Arma, UA 1.010 [employer] Phone: Turbidity UA CLEAR CLEAR [employer] Phone: Urinalysis Comments [employer] Phone: Urine Hgb Negative NEGATIVE [employer] Phone: Urobilinogen, Urine Normal Normal [employer] Phone: [employer] Phone: COVID-19, RapidOrdered By: Dre Simpson on 11-15-2020 SARS-CoV-2 (COVID-19) RNA SUJATA+probe Ql (Unsp spec) Not detected Not Detected [employer] Phone: Comment on above: Rapid NAAT: The specimen is NEGATIVE for SARS-CoV-2, the novel coronavirus associated with COVID-19. The ID NOW COVID-19 assay is designed to detect the virus that causes COVID-19 in patients with signs and symptoms of infection who are suspected of COVID-19. An individual without symptoms of COVID-19 and who is not shedding SARS-CoV-2 virus would expect to have a negative (not detected) result in this assay. Negative results should be treated as presumptive and, if inconsistent with clinical signs and symptoms or necessary for patient management, should be tested with an alternative molecular assay. Negative results do not preclude SARS-CoV-2 infection and should not be used as the sole basis for patient management decisions. Fact sheet for Healthcare Providers: https://www.fda.gov/media/645490/download Fact sheet for Patients: https://www.fda.gov/media/982133/download Methodology: Isothermal Nucleic Acid Amplification Specimen Description .NASOPHARYNGEAL SWAB [employer] Phone: [employer] Phone: FL MODIFIED BARIUM SWALLOW W VIDEOOrdered By: Obed Dunn on 11-15-2020 Flash penetration sporadically with thin liquid. Please refer to speech pathologist report for additional findings and recommendations. [employer] Phone: EXAMINATION: FL MODIFIED BARIUM SWALLOW W VIDEO HISTORY: R13.19 69-year-old female with dysphagia. COMPARISON: None. FLUOROSCOPY TIME: Fluoro time measures 2.9 minutes. A single spot image was obtained. TECHNIQUE: Cine fluoroscopic evaluation of swallowing function with speech pathology. FINDINGS: Speech pathologist administered varying consistencies of barium and I provided fluoroscopic assistance and interpretation. There was only flash penetration sporadically with thin liquid. No deep penetration or aspiration. All the other consistencies were well tolerated. [employer] Phone: Stanislav, Abraham Incoming Radiant Results From [facility] - 11/15/2020 2:16 PM EDT EXAMINATION: FL MODIFIED BARIUM SWALLOW W VIDEO HISTORY: R13.19 69-year-old female with dysphagia. COMPARISON: None. FLUOROSCOPY TIME: Fluoro time measures 2.9 minutes. A single spot image was obtained. TECHNIQUE: Cine fluoroscopic evaluation of swallowing function with speech pathology. FINDINGS: Speech pathologist administered varying consistencies of barium and I provided fluoroscopic assistance and interpretation. There was only flash penetration sporadically with thin liquid. No deep penetration or aspiration. All the other consistencies were well tolerated. IMPRESSION: Flash penetration sporadically with thin liquid. Please refer to speech pathologist report for additional findings and recommendations. [employer] Phone: [employer] Phone: APTTOrdered By: Justin Jc on 10-25-2020 aPTT Coag (Bld) [Time] 25.1 s [employer] Phone: Comment on above: IV Heparin Therapy Range: 62.0-94.0 [employer] Phone: CTA HEAD NECK W CONTRASTOrde red By: Justin Jc on 10-25-2020 1. Intracranial and extracranial vessels demonstrate no stenosis, thrombus, or dissection. 2. No pathologic enhancement or mass effect. If there is continued suspicion for the presence of infarction, then MRI with diffusion imaging would be recommended unless there is a contraindication for MRI scanning. [employer] Phone: CTA HEAD NECK W CONTRAST INDICATION:69 years old; Reason for exam:->cva workup slurred speech. TECHNIQUE: CT angiogram of the head and neck was performed. Coronal, sagittal and 3-D reformats were created and reviewed. IV contrast Isovue-370 100mL. No complications . Carotid stenosis measurements were made according to the NASCET criteria. Ionizing radiation dose reduced via iterative reconstruction/FBP blend and body size kV/mA adjustment. COMPARISON: Noncontrast head CT performed prior to this examination. There are beam hardening artifacts noted with motion artifacts the level of the aortic arch. FINDINGS: NECK FINDINGS: AORTIC ARCH: Allowing for motion artifacts and streak artifacts, the origins of the great vessels are patent. ANTERIOR CIRCULATION: Common carotid arteries are patent. Carotid bifurcations are patent. No thrombus or calcific plaque is seen. The cervical portions of the ICA are patent up to the skull base. POSTERIOR CIRCULATION: There are patent origins of the vertebral arteries. The V1, V2, and V3 segments are patent bilaterally. No thrombus or stenosis is seen. DEVELOPMENTAL ANOMALIES: None. OTHER: No thyroid nodule or adenopathy. HEAD BRAIN: Please refer to the noncontrast head CT previously performed. ANTERIOR CIRCULATION: There is patent appearance of the intrapetrous, intracavernous, and supraclinoid ICA. The distal termini are patent bilaterally. The MICHAEL and MCA are bilaterally patent. No stenosis or thrombus is seen. The distal distributions are symmetric bilaterally. POSTERIOR CIRCULATION: The V4 segments are patent. The basilar artery is patent. The SCA and [employer] origins are patent. DEVELOPMENTAL ANOMALIES: None. OTHER: Venous structures are patent. No pathologic enhancement is seen. [employer] Work Phone: Stanislav, [facility] Incoming Radiant Results From [employer] - 10/25/2020 1:08 AM EDT CTA HEAD NECK W CONTRAST INDICATION:69 years old; Reason for exam:->cva workup slurred speech. TECHNIQUE: CT angiogram of the head and neck was performed. Coronal, sagittal and 3-D reformats were created and reviewed. IV contrast Isovue-370 100mL. No complications . Carotid stenosis measurements were made according to the NASCET criteria. Ionizing radiation dose reduced via iterative reconstruction/FBP blend and body size kV/mA adjustment. COMPARISON: Noncontrast head CT performed prior to this examination. There are beam hardening artifacts noted with motion artifacts the level of the aortic arch. FINDINGS: NECK FINDINGS: AORTIC ARCH: Allowing for motion artifacts and streak artifacts, the origins of the great vessels are patent. ANTERIOR CIRCULATION: Common carotid arteries are patent. Carotid bifurcations are patent. No thrombus or calcific plaque is seen. The cervical portions of the ICA are patent up to the skull base. POSTERIOR CIRCULATION: There are patent origins of the vertebral arteries. The V1, V2, and V3 segments are patent bilaterally. No thrombus or stenosis is seen. DEVELOPMENTAL ANOMALIES: None. OTHER: No thyroid nodule or adenopathy. HEAD BRAIN: Please refer to the noncontrast head CT previously performed. ANTERIOR CIRCULATION: There is patent appearance of the intrapetrous, intracavernous, and supraclinoid ICA. The distal termini are patent bilaterally. The MICHAEL and MCA are bilaterally patent. No stenosis or thrombus is seen. The distal distributions are symmetric bilaterally. POSTERIOR CIRCULATION: The V4 segments are patent. The basilar artery is patent. The SCA and [employer] origins are patent. DEVELOPMENTAL ANOMALIES: None. OTHER: Venous structures are patent. No pathologic enhancement is seen. IMPRESSION: 1. Intracranial and extracranial vessels demonstrate no stenosis, thrombus, or dissection. 2. No pathologic enhancement or mass effect. If there is continued suspicion for the presence of infarction, then MRI with diffusion imaging would be recommended unless there is a contraindication for MRI scanning. [employer] Phone: [employer] Phone: EKG 12 LeadOrdered By: Yasmani Jc on 10-25-2020 Atrial Rate 99 BPM [employer] Phone: P Montgomery 46 degrees [employer] Phone: P-R Interval 172 ms [employer] Phone: Q-T Interval 340 ms [employer] Phone: QRS Duration 72 ms [employer] Phone: QTc Calculation (Bazett) 436 ms [employer] Phone: R Montgomery -13 degrees [employer] Phone: T Montgomery 43 degrees [employer] Phone: Ventricular Rate 99 [employer] Work Phone: Normal sinus rhythm Normal ECG [employer] Phone: Stanislav, Mhpn Incoming Ekg Results From [employer] - 10/25/2020 8:10 AM EDT Normal sinus rhythm Normal ECG [employer] Phone: [employer] Phone: Glucose, Whole BloodOrdered By: Justin Jc on 10-25-2020 Glucose [Mass/Vol] 225 mg/dL High 65 - 99 mg/dL [employer] Phone: Interpretation and review of laboratory results Abnormal [employer] Phone: [employer] Phone: Glucose [Mass/Vol] 224 mg/dL High 65 - 99 mg/dL [employer] Phone: Interpretation and review of laboratory results Abnormal [employer] Phone: [employer] Phone: MRI BRAIN WO CONTRASTOrdered By: Dm Lynn on 10-25-2020 1. No acute infarct, hemorrhage or mass effect. 2. Mild nonspecific FLAIR signal abnormalities of the supratentorial white matter, compatible with chronic small vessel ischemic changes. A demyelinating disorder cannot be excluded. [employer] Phone: EXAM: MRI BRAIN WO CONTRAST HISTORY: Reason for exam:->Slurred speech, confusion, 16 hours ago COMPARISON: Head CTA 10/25/2020, noncontrast head CT 10/24/2020. TECHNIQUE: Multiplanar, multisequence imaging was performed without intravenous contrast. FINDINGS: No restricted diffusion. No acute hemorrhage, mass effect, midline shift or extra-axial fluid collection. No ventriculomegaly. Expected flow voids are seen within the intracranial internal carotid, vertebral and basilar arteries. Cerebellopontine angles and internal auditory canals are unremarkable. The pituitary gland and midline structures are unremarkable. Bone marrow signal is within normal limits. Orbits and globes are unremarkable. Expected signal voids are seen within the paranasal sinuses and mastoid air cells. Mild scattered foci of increased FLAIR signal are seen within the subcortical and periventricular white matter. [employer] Phone: Stanislav, pn Incoming Radiant Results From [facility] - 10/25/2020 4:21 PM EDT EXAM: MRI BRAIN WO CONTRAST HISTORY: Reason for exam:->Slurred speech, confusion, 16 hours ago COMPARISON: Head CTA 10/25/2020, noncontrast head CT 10/24/2020. TECHNIQUE: Multiplanar, multisequence imaging was performed without intravenous contrast. FINDINGS: No restricted diffusion. No acute hemorrhage, mass effect, midline shift or extra-axial fluid collection. No ventriculomegaly. Expected flow voids are seen within the intracranial internal carotid, vertebral and basilar arteries. Cerebellopontine angles and internal auditory canals are unremarkable. The pituitary gland and midline structures are unremarkable. Bone marrow signal is within normal limits. Orbits and globes are unremarkable. Expected signal voids are seen within the paranasal sinuses and mastoid air cells. Mild scattered foci of increased FLAIR signal are seen within the subcortical and periventricular white matter. IMPRESSION: 1. No acute infarct, hemorrhage or mass effect. 2. Mild nonspecific FLAIR signal abnormalities of the supratentorial white matter, compatible with chronic small vessel ischemic changes. A demyelinating disorder cannot be excluded. [employer] Phone: [employer] Phone: Protime-INROrdered By: Yasmani Jc on 10-25-2020 INR Coag (Bld) [Relative time] 1.1 {INR} [employer] Phone: Comment on above: Non-therapeutic Range: INR = 0.9-1.2 Therapeutic Range: Moderate Anticoagulant Intensity: INR = 2.0-3.0 High Anticoagulant Intensity: INR = 2.5-3.5 PT Coag (PPP) [Time] 13.8 s [employer] Phone: [employer] Phone: CBC Auto DifferentialOrdered By: Justin Jc on 10-24-2020 [employer] # 0.28 [employer] [facility] Work Phone: Absolute Eos # [facility] Work Phone: Absolute Immature Granulocyte NOT REPORTED [employer] Work Phone: Absolute Lymph # 0.65 Low [employer] [facility] [employer] Work Phone: Absolute [place] # 0.56 [employer] [facility] Work Phone: Bands 3 % 0 - 10 % [employer] Work Phone: Basophils (Bld) [#/Vol] 0.19 10*3/uL [employer] Work Phone: Basophils/100 WBC (Bld) 2 % 0 - 2 % [employer] Work Phone: Differential Type NOT REPORTED [employer] Work Phone: Eosinophils % 0 - 5 % [facility] Work Phone: Hematocrit (Bld) [Volume fraction] 39.9 % 36 - 46 % [employer] Work Phone: Hemoglobin.gastrointe stinal spec 1 Ql (Stl) 13.4 g/dL 12.0 - 16.0 g/dL [employer] Work Phone: Immature Granulocytes NOT REPORTED 0 % M [employer] Work Phone: Interpretation and review of laboratory results Abnormal [employer] Work Phone: Lymphocytes/100 WBC (Bld) 7 % Low 15 - 40 % [employer] Work Phone: MCH (RBC) [Entitic mass] 29.2 pg 26 - 34 pg [employer] Work Phone: MCHC (RBC) [Mass/Vol] 33.7 g/dL 31 - 37 g/dL [facility] [employer] Work Phone: MCV (RBC) [Entitic vol] 86.7 fL 80 - 100 fL [employer] Work Phone: Monocytes/100 WBC (Bld) 6 % 4 - 8 % [employer] Phone: Morphology Beto (Bld) [Interp] Manual Differential Performed [facility] Phone: NRBC Automated NOT REPORTED per [address] [facility] Work Phone: Platelet distribution width (Bld) [Ratio] 13.8 % 12.1 - 15.2 % [employer] Phone: Platelet Estimate NOT REPORTED [employer] Phone: Platelet mean volume (Bld) [Entitic vol] NOT REPORTED 6.0 - 12.0 fL [employer] Phone: Platelets (Bld) [#/Vol] 193 10*3/uL [employer] Phone: RBC (Bld) [#/Vol] 4.61 10*6/uL 4.0 - 5.2 m/uL [facility] Work Phone: RBC (Bld) [#/Vol] NOT REPORTED [facility] Phone: Segmented neutrophils/100 WBC (Bld) 82 % High 47 - 75 % [employer] Phone: Segs Absolute 7.62 High [employer] Work Phone: WBC (Bld) [#/Vol] 9.3 10*3/uL [employer] Phone: WBC (Bld) [#/Vol] NOT REPORTED [employer] Phone: [employer] Phone: CT HEAD WO CONTRASTOrdered B y: Justin Jc on 10-24-2020 1. No acute intracranial abnormality. 2. Partially empty sella. [employer] Phone: EXAMINATION: CT HEAD WO CONTRAST STROKE, 10/24/2020 11:03 PM EDT HISTORY: Reason for exam:->slurred speech, weakness COMPARISON: None. TECHNIQUE: CT scan of the head was performed without IV contrast. CT dose reduction technique was used, including Automated Exposure Control. FINDINGS: BRAIN PARENCHYMA/CSF SPACES: Limited study due to motion. On the repeat images the images are suboptimal but satisfactory. The ventricles appear normal in size and configuration. There is no hemorrhage, mass effect or midline shift. There is a partially empty sella. PARANASAL SINUSES: Clear. SKULL BASE AND CALVARIUM: Normal. EXTRACRANIAL SOFT TISSUES: Normal. [employer] Phone: Stanislav, pn Incoming Radiant Results From [employer] - 10/24/2020 11:21 PM EDT EXAMINATION: CT HEAD WO CONTRAST STROKE, 10/24/2020 11:03 PM EDT HISTORY: Reason for exam:->slurred speech, weakness COMPARISON: None. TECHNIQUE: CT scan of the head was performed without IV contrast. CT dose reduction technique was used, including Automated Exposure Control. FINDINGS: BRAIN PARENCHYMA/CSF SPACES: Limited study due to motion. On the repeat images the images are suboptimal but satisfactory. The ventricles appear normal in size and configuration. There is no hemorrhage, mass effect or midline shift. There is a partially empty sella. PARANASAL SINUSES: Clear. SKULL BASE AND CALVARIUM: Normal. EXTRACRANIAL SOFT TISSUES: Normal. IMPRESSION: 1. No acute intracranial abnormality. 2. Partially empty sella. [employer] Phone: [employer] Phone: Comprehensive Metabolic Pane l w/ Reflex to MGOrdered By: Justin Jc on 10-24-2020 Albumin [Mass/Vol] 3.5 g/dL 3.5 - 5.2 g/dL [facility] Phone: Albumin/Globulin Ratio NOT REPORTED [facility] Phone: ALP (Bld) [Catalytic activity/Vol] 83 U/L 35 - 104 U/L [employer] Phone: ALT [Catalytic activity/Vol] 14 U/L 5 - 33 U/L [employer] Phone: Anion gap [Moles/Vol] 11 mmol/L 9 - 17 mmol/L [employer] Phone: AST [Catalytic activity/Vol] 20 U/L <32 [employer] Phone: Bilirubin [Mass/Vol] 0.33 mg/dL 0.30 - 1.20 mg/dL [employer] Phone: Calcium [Mass/Vol] 9.1 mg/dL 8.6 - 10. 4 mg/dL [employer] Phone: Chloride [Moles/Vol] 102 mmol/L 98 - 107 mmol/L [employer] Phone: CO2 [Moles/Vol] 22 mmol/L 20 - 31 mmol/L [employer] Phone: Creatinine [Mass/Vol] 1.21 mg/dL High 0.50 - 0.90 mg/dL [employer] Phone: Free PSA/Total PSA [Mass fraction] 6.5 g/dL 6.4 - 8.3 g/dL [employer] Phone: GFR 54 mL/min Low >60 [employer] Phone: GFR Non- 44 mL/min Low >60 [employer] Phone: GFR/1.73 sq M.predicted MDRD (S/P/Bld) [Vol rate/Area] [employer] Phone: Comment on above: Average GFR for 60-6 9 years old: 85 mL/min/1.73sq m Chronic Kidney Disease: <60 mL/min/1.73sq m Kidney failure: <15 mL/min/1.73sq m eGFR calculated using average adult body mass. Additional eGFR calculator available at: http://www.[employer].Algisys/multiple_crcl_2012.htm GFR/1.73 sq M.predicted MDRD (S/P/Bld) [Vol rate/Area] NOT REPORTED [employer] Phone: Glucose [Mass/Vol] 176 mg/dL High 70 - 99 mg/dL [employer] Phone: Interpretation and review of laboratory results Abnormal [employer] Phone: Potassium [Moles/Vol] 4.4 mmol/L 3.7 - 5.3 mmol/L [employer] Phone: Sodium [Moles/Vol] 135 mmol/L 135 - 144 mmol/L [employer] Phone: Urea nitrogen (BldV) [Mass/Vol] 11 mg/dL 8 - 23 mg/dL [employer] Phone: Urea nitrogen/Creatinine (Bld) [Mass ratio] 9 [employer] Phone: [employer] Phone: Glucose, Whole BloodOrdered By: Justin Jc on 10-24-2020 Glucose [Mass/Vol] 142 mg/dL High 65 - 99 mg/dL [employer] Phone: Interpretation and review of laboratory results Abnormal [employer] Phone: [employer] Phone: TSH without ReflexOrdered By : Obed Dunn on 10-23-2020 TSH Qn 4.44 m[IU]/L [employer] Phone: [employer] Phone: DEXA BONE DENSITY 2 SITESOrd ered By: Obed Dunn on 08-27-2020 Normal bone mineral density measurements. [employer] Phone: HISTORY: Screening. TECHNIQUE: Bone mineral density measurements were obtained in the lumbar spine region and bilateral hip regions. COMPARISON: None. FINDINGS: L1 through L4 measures 1.522 g/sq cm with a T-score of 2.8 which is normal. The right and left hip and femoral neck measures 0.996 g/sq cm with a T-score of -0.1 and 0.939 g/sq cm with a T-score of -0.7 which is normal. The left measures 1.001 g/sq cm with a T-score of -0.1 and 0.921 g/sq cm with a T-score of -0.8 which are normal. [employer] Phone: Stanislav, Mhpn Incoming Radiant Results From [facility] - 08/27/2020 1:53 PM EDT HISTORY: Screening. TECHNIQUE: Bone mineral density measurements were obtained in the lumbar spine region and bilateral hip regions. COMPARISON: None. FINDINGS: L1 through L4 measures 1.522 g/sq cm with a T-score of 2.8 which is normal. The right and left hip and femoral neck measures 0.996 g/sq cm with a T-score of -0.1 and 0.939 g/sq cm with a T-score of -0.7 which is normal. The left measures 1.001 g/sq cm with a T-score of -0.1 and 0.921 g/sq cm with a T-score of -0.8 which are normal. IMPRESSION: Normal bone mineral density measurements. [employer] Phone: [employer] Phone: Comprehensive Metabolic Pane lOrdered By: Obed Dunn on 08-01-2020 Albumin [Mass/Vol] 3.7 g/dL 3.5 - 5.2 g/dL [facility] [employer] Phone: Albumin/Globulin Ratio NOT REPORTED [employer] Phone: ALP (Bld) [Catalytic activity/Vol] 96 U/L 35 - 104 U/L [employer] Phone: ALT [Catalytic activity/Vol] 13 U/L 5 - 33 U/L [employer] Phone: Anion gap [Moles/Vol] 8 mmol/L Low 9 - 17 mmol/L [employer] Phone: AST [Catalytic activity/Vol] 18 U/L <32 [employer] Phone: Bilirubin [Mass/Vol] 0.22 mg/dL Low 0.30 - 1.20 mg/dL [employer] Phone: Calcium [Mass/Vol] 9.2 mg/dL 8.6 - 10. 4 mg/dL [employer] Phone: Chloride [Moles/Vol] 109 mmol/L High 98 - 107 mmol/L [employer] Phone: CO2 [Moles/Vol] 23 mmol/L 20 - 31 mmol/L [employer] Phone: Creatinine [Mass/Vol] 1.44 mg/dL High 0.50 - 0.90 mg/dL [employer] Phone: Free PSA/Total PSA [Mass fraction] 6.5 g/dL 6.4 - 8.3 g/dL [employer] Phone: GFR 44 mL/min Low >60 [employer] Phone: GFR Non- 36 mL/min Low >60 [employer] Phone: GFR/1.73 sq M.predicted MDRD (S/P/Bld) [Vol rate/Area] [employer] Phone: Comment on above: Average GFR for 60-6 9 years old: 85 mL/min/1.73sq m Chronic Kidney Disease: <60 mL/min/1.73sq m Kidney failure: <15 mL/min/1.73sq m eGFR calculated using average adult body mass. Additional eGFR calculator available at: http://www.[employer]/multiple_crcl_2012.htm GFR/1.73 sq M.predicted MDRD (S/P/Bld) [Vol rate/Area] NOT REPORTED [employer] Phone: Glucose [Mass/Vol] 113 mg/dL High 70 - 99 mg/dL [facility] [employer] Phone: Potassium [Moles/Vol] 4.3 mmol/L 3.7 - 5.3 mmol/L [facility] Phone: Sodium [Moles/Vol] 140 mmol/L 135 - 144 mmol/L [facility] Phone: Urea nitrogen (BldV) [Mass/Vol] 12 mg/dL 8 - 23 mg/dL [facility] Phone: Urea nitrogen/Creatinine (Bld) [Mass ratio] [address] [facility] Phone: Hemoglobin [id number] By: Conchis Dunn on 08-01-2020 Glucose [Mass/Vol] 146 mg/dL [facility] Phone: Comment on above: The ADA and AACC rec ommend providing the estimated average glucose result to permit better patient understanding of their HBA1c result. HbA1c (Bld) [Mass fraction] 6.7 % High 4.0 - 6.0 % [facility] Phone: Interpretation and review of laboratory results Abnormal [facility] Phone: Lipid PanelOrdered By: Obed Dunn on 08-01-2020 Cholesterol [Mass/Vol] 151 mg/dL <[address] [facility] [facility] [address] [facility] Phone: Comment on above: Cholesterol Guidelines: <200 Desirable 200-240 Borderline >240 Undesirable Cholesterol in HDL [Mass/Vol] 47 mg/dL >[address] [facility] Phone: Comment on above: HDL Guidelines: <40 Undesirable 40-59 Borderline >59 Desirable Cholesterol in LDL [Mass/Vol] 81 mg/dL 0 - 130 mg/dL [employer] Phone: Comment on above: LDL Guidelines: <100 Desirable 100-129 Near to/above Desirable 130-159 Borderline >159 Undesirable Direct (measured) LDL and calculated LDL are not interchangeable tests. Cholesterol in VLDL [Mass/Vol] NOT REPORTED 1 - 30 mg/dL [employer] Phone: Cholesterol.total/Cho lesterol in HDL [Mass ratio] 3.2 {ratio} <5 [employer] Phone: Triglyceride [Mass/Vol] 116 mg/dL <150 [employer] Phone: Comment on above: Triglyceride Guidelines: <150 Desirable 150-199 Borderline 200-499 High >499 Very high Based on AHA Guidelines for fasting triglyceride, January 2012. No Panel InformationOrdered By: Obed Dunn on 08-01-2020 Interpretation and review of laboratory results Abnormal [employer] Phone: Patient Fasting?Ordered By: Obed Dunn on 08-01-2020 Patient Fasting? yes [employer] Phone: TSH without ReflexOrdered By : Obed Dunn on 08-01-2020 TSH Qn 9.30 m[IU]/L High [employer] Phone: Albumin [Mass/volume] in Ser um or Plasmaon 04-20-2019 Albumin [Mass/Vol] 3.6 g/dL 3.2-5.5 [facility] Automated blood platelet cou nt (count/volume)on 04-20-2019 Platelets (Bld) [#/Vol] 240 10*3/uL 150-450 [facility] Automated blood platelet manish n volume measurementon 04-20-2019 Platelet mean volume (Bld) [Entitic vol] 9.4 fL 6.3-10.7 [facility] Automated erythrocyte distri bution width ratioon 04-20-2019 Erythrocyte distribution width (RBC) [Ratio] 13.5 % 11.9-15.3 [facility] Automated erythrocyte mean c orpuscular hemoglobin (mass per erythrocyte)on 04-20-2019 MCH (RBC) [Entitic mass] 29.1 pg 24.7-34.3 [facility] Automated erythrocyte mean c orpuscular hemoglobin concentration measurement (mass/volon 04-20-2019 MCHC (RBC) [Mass/Vol] 33.4 g/dL 32.0-35.0 [facility] Automated erythrocyte mean c orpuscular volumeon 04-20-2019 MCV (RBC) [Entitic vol] 87.1 fL 80-100 [facility] Automated erythrocytes count in urine sediment (number/area)on 04-20-2019 RBC Auto (Urine sed) [#/Area] 5-9 [HPF] [facility] Automated leukocytes count i n urine sediment (number/area)on 04-20-2019 WBC Auto (Urine sed) [#/Area] Innumerable [HPF] [facility] Automated urine color determ inationon 04-20-2019 Color (U) Yellow Yellow [facility] Blood erythrocytes automated count (number/volume)on 04-20-2019 RBC (Bld) [#/Vol] 4.56 10*6/uL 3.60-5.[address] [facility] Blood hemoglobin measurement (mass/volume)on 04-20-2019 Hemoglobin (Bld) [Mass/Vol] 13.3 g/dL 11.8-15.4 [facility] Blood leukocytes automated c ount (number/volume)on 04-20-2019 WBC (Bld) [#/Vol] 6.8 10*3/uL 3.8-11.6 [facility] Creatinine [Mass/volume] in Urineon 04-20-2019 Creatinine (U) [Mass/Vol] 152.0 mg/dL [facility] Comment on above: No reference range e stablished Estimated glomerular filtrat ion rate (GFR) non- Americanon 04-20-2019 GFR/1.73 sq M predicted among non-blacks MDRD (S/P/Bld) [Vol rate/Area] 39 mL/min/{1.73_m2} [facility] Hematocrit [Volume Fraction] of Blood by Automated counton 04-20-2019 Hematocrit (Bld) [Volume fraction] 39.7 % 34.0-46.4 [facility] Metabolic Panelon 04-20-2019 Magnesium [Mass/Vol] 1.8 mg/dL 1.6-2.6 [facility] Otheron 04-20-2019 25-Hydroxy Vitamin D Total 28.0 ng/mL 30-100 [facility] Comment on above: VITAMIN D STATUS 25( [place])VITAMIN D RANGE (ng/mL) Deficient <20 Insufficient 20 to <30Sufficient 30 to 100Reference: Yonathan MF,Pedro Luis MCKENNA, Alicia MONTIEL, et al. Evaluation,treatment, and prevention of vitamin D deficiency; an Endocrine Society clinical practice guideline. JCEM. 2010; 96(7):1911-30. GFR/1.73 sq M.predicted MDRD (S/P/Bld) [Vol rate/Area] 47 mL/min/{1.73_m2} [facility] Comment on above: GFR estimated refere nce range: According to KDOQI guidelines, <60 ml/min/1.73m2 is sufficient to diagnose a patient with chronic kidney disease. Pharmacy Creatinine Clearance (Chem N/A [facility] Phosphate [Mass/volume] in [place] or Plasmaon 04-20-2019 Phosphate [Mass/Vol] 4.1 mg/dL 2.5-4.6 [facility] Protein [Mass/volume] in Uri neon 04-20-2019 Protein (U) [Mass/Vol] 38 mg/dL 0-9 [facility] Serum or plasma calcium champ urement (mass/volume)on 04-20-2019 Calcium [Mass/Vol] 10.0 mg/dL 8.2-10.2 [facility] Serum or plasma chloride manish surement (moles/volume)on 04-20-2019 Chloride [Moles/Vol] 105 mmol/L 95-114 [facility] Serum or plasma creatinine m easurement with calculation of estimated glomerular filtron 04-20-2019 Creatinine [Mass/Vol] 1.35 mg/dL 0.44-1.03 [facility] Serum or plasma glucose champ urement (mass/volume)on 04-20-2019 Glucose [Mass/Vol] 180 mg/dL 70-100 [facility] Comment on above: ADA recommended refe rence rangeRandom Glucose Reference Range is dependent on time and content of last meal. Glucose of more than 200 mg/dL in a nonstressed, ambulatory subject supports the diagnosis of Diabetes Mellitus. Serum or plasma intact parat hyroid hormone measurement (mass/volume)on 04-20-2019 Parathyrin.intact [Mass/Vol] 66.7 pg/mL [facility] Serum or plasma potassium me asurement (moles/volume)on 04-20-2019 Potassium [Moles/Vol] 4.6 mmol/L 3.5-5.1 [facility] Serum or plasma sodium measu rement (moles/volume)on 04-20-2019 Sodium [Moles/Vol] 141 mmol/L 136-146 [facility] Serum or plasma total carbon dioxide measurement (moles/volume)on 04-20-2019 CO2 [Moles/Vol] 26.6 mmol/L 22.0-30.0 [facility] Serum or plasma urea nitroge n measurement (mass/volume)on 04-20-2019 Urea nitrogen [Mass/Vol] 13 mg/dL 12-27 [facility] Specific gravity of Urine by Automated test stripon 04-20-2019 Specific gravity (U) [Rel density] 1.014 1.001-1.030 [facility] Squamous epithelial cells de tection in urine sediment by light microscopyon 04-20-2019 Epithelial cells.squamous LM Ql (Urine sed) 3-4 [HPF] [facility] Urinalysison 04-20-2019 Hyaline casts LM Ql (Urine sed) 0-8 [LPF] [facility] Urine bacteria detection by automated methodon 04-20-2019 Bacteria Auto Ql (U) 3+ None Seen [facility] Urine clarity by refractomet ry automatedon 04-20-2019 Clarity Refractometry automated (U) Turbid Clear [facility] Urine glucose measurement by automated test strip (mass/volume)on 04-20-2019 Glucose Auto test strip (U) [Mass/Vol] Normal mg/dL Normal [facility] Urine hemoglobin detection b y automated test stripon 04-20-2019 Hemoglobin Auto test strip Ql (U) 1+ Negative [facility] Urine ketones measurement by automated test strip (mass/volume)on 04-20-2019 Ketones (U) [Mass/Vol] Negative Negative [facility] Urine leukocyte esterase det ection by automated test stripon 04-20-2019 Leukocyte esterase Auto test strip Ql (U) 4+ Negative [facility] Urine nitrite detection by t est stripon 04-20-2019 Nitrite Ql (U) Positive Negative [facility] Urine pH measurement by auto mated test stripon 04-20-2019 pH (U) 5.5 [pH] 5.0-9.0 [facility] Urine protein measurement by automated test strip (mass/volume)on 04-20-2019 Protein (U) [Mass/Vol] 30 mg/dL Negative [facility] Urine protein/creatinine rat ioon 04-20-2019 Protein/Creatinine (U) [Ratio] 250 mg/g{Cre} 0-200 [facility] Urine total bilirubin detect ion by test stripon 04-20-2019 Bilirubin Ql (U) Negative Negative [facility] Urine urobilinogen measureme nt by automated test strip (mass/volume)on 04-20-2019 Urobilinogen (U) [Mass/Vol] Normal mg/dL Normal [facility] Yeast detection in urine sed iment by light microscopyon 04-20-2019 Yeast LM Ql (Urine sed) None seen [HPF] None Seen [facility] Albumin [Mass/volume] in Ser um or Plasmaon 03-08-2019 Albumin [Mass/Vol] 3.6 g/dL 3.2-5.5 [facility] Automated basophil %on 03-08 Basophils/100 WBC (Bld) 0.4 % [facility] Automated basophil counton 1 05-09-2018 Basophils (Bld) [#/Vol] 0.0 10*3/uL 0.0-0.2 [facility] Automated blood lymphocyte c ount (number/volume)on 03-08-2019 Lymphocytes (Bld) [#/Vol] 1.2 10*3/uL 1.00-4.8 [facility] Automated blood lymphocyte c ount as percentage of total leukocyteson 03-08-2019 Lymphocytes/100 WBC (Bld) 26.1 % [facility] Automated blood monocyte cou nton 03-08-2019 Monocytes (Bld) [#/Vol] 0.4 10*3/uL 0.0-0.8 [facility] Automated blood platelet cou nt (count/volume)on 03-08-2019 Platelets (Bld) [#/Vol] 200 10*3/uL 150-450 [facility] Automated blood platelet manish n volume measurementon 03-08-2019 Platelet mean volume (Bld) [Entitic vol] 9.5 fL 6.3-10.7 [facility] Automated eosinophil %on Eosinophils/100 WBC (Bld) 2.7 % [facility] Automated eosinophil counton 03-08-2019 Eosinophils (Bld) [#/Vol] 0.1 10*3/uL 0.0-0.45 [facility] Automated erythrocyte distri bution width ratioon 03-08-2019 Erythrocyte distribution width (RBC) [Ratio] 13.8 % 11.9-15.3 [facility] Automated erythrocyte mean c orpuscular hemoglobin (mass per erythrocyte)on 03-08-2019 MCH (RBC) [Entitic mass] 29.1 pg 24.7-34.3 [facility] Automated erythrocyte mean c orpuscular hemoglobin concentration measurement (mass/volon 03-08-2019 MCHC (RBC) [Mass/Vol] 33.2 g/dL 32.0-35.0 [facility] Automated erythrocyte mean c orpuscular volumeon 03-08-2019 MCV (RBC) [Entitic vol] 87.6 fL 80-100 [facility] Automated monocyte %on 03-08 Monocytes/100 WBC (Bld) 9.4 % [facility] Automated neutrophil %on Neutrophils/100 WBC (Bld) 61.4 % [facility] Blood erythrocytes automated count (number/volume)on 03-08-2019 RBC (Bld) [#/Vol] 4.44 10*6/uL 3.60-5.[address] [facility] Blood hemoglobin measurement (mass/volume)on 03-08-2019 Hemoglobin (Bld) [Mass/Vol] 12.9 g/dL 11.8-15.4 [facility] Blood leukocytes automated c ount (number/volume)on 03-08-2019 WBC (Bld) [#/Vol] 4.6 10*3/uL 3.8-11.6 [facility] Blood neutrophil count by au tomated method (number/volume)on 03-08-2019 Neutrophils (Bld) [#/Vol] 2.8 10*3/uL 1.8-7.7 [facility] Estimated glomerular filtrat ion rate (GFR) non- Americanon 03-08-2019 GFR/1.73 sq M predicted among non-blacks MDRD (S/P/Bld) [Vol rate/Area] 41 mL/min/{1.73_m2} [facility] Hematocrit [Volume Fraction] of Blood by Automated counton 03-08-2019 Hematocrit (Bld) [Volume fraction] 38.9 % 34.0-46.4 [facility] Otheron 03-08-2019 GFR/1.73 sq M.predicted MDRD (S/P/Bld) [Vol rate/Area] 50 mL/min/{1.73_m2} [facility] Comment on above: GFR estimated refere nce range: According to KDOQI guidelines, <60 ml/min/1.73m2 is sufficient to diagnose a patient with chronic kidney disease. Nucleated RBC/100 WBC (Bld) [Ratio] 0.3 % 0-0.5 [facility] Pharmacy Creatinine Clearance (Chem N/A [facility] Protein [Mass/volume] in Ser um or Plasmaon 03-08-2019 Protein [Mass/Vol] 5.9 g/dL 6.1-7.9 [facility] Serum globulin measurement b y calculation (mass/volume)on 03-08-2019 Globulin (S) [Mass/Vol] 2.3 g/dL [facility] Serum or plasma alanine pavon otransferase measurement without P-5'-P (enzymatic activion 03-08-2019 ALT No additional P-5'-P [Catalytic activity/Vol] 19 U/L 10-60 [facility] Serum or plasma albumin/glob ulin mass ratioon 03-08-2019 Albumin/Globulin [Mass ratio] 1.6 {ratio} [facility] Serum or plasma alkaline elida sphatase measurement (enzymatic activity/volume)on 03-08-2019 ALP [Catalytic activity/Vol] 59 U/L 32-92 [facility] Serum or plasma aspartate am inotransferase measurement (enzymatic activity/volume)on 03-08-2019 AST [Catalytic activity/Vol] 19 U/L 10-42 [facility] Serum or plasma calcium champ urement (mass/volume)on 03-08-2019 Calcium [Mass/Vol] 9.1 mg/dL 8.2-10.2 [facility] Serum or plasma chloride manish surement (moles/volume)on 03-08-2019 Chloride [Moles/Vol] 108 mmol/L 95-114 [facility] Serum or plasma creatinine m easurement with calculation of estimated glomerular filtron 03-08-2019 Creatinine [Mass/Vol] 1.30 mg/dL 0.44-1.03 [facility] Serum or plasma glucose champ urement (mass/volume)on 03-08-2019 Glucose [Mass/Vol] 170 mg/dL 70-100 [facility] Comment on above: ADA recommended refe rence rangeRandom Glucose Reference Range is dependent on time and content of last meal. Glucose of more than 200 mg/dL in a nonstressed, ambulatory subject supports the diagnosis of Diabetes Mellitus. Serum or plasma potassium me asurement (moles/volume)on 03-08-2019 Potassium [Moles/Vol] 4.0 mmol/L 3.5-5.1 [facility] Serum or plasma sodium measu rement (moles/volume)on 03-08-2019 Sodium [Moles/Vol] 140 mmol/L 136-146 [facility] Serum or plasma thyroid stim ulating hormone (TSH) measurement by high sensitivity meton 03-08-2019 TSH Qn 2.68 u[iU]/mL 0.45-5.33 [facility] Serum or plasma total biliru bin measurement (mass/volume)on 03-08-2019 Bilirubin [Mass/Vol] 0.5 mg/dL 0.3-1.2 [facility] Serum or plasma total carbon dioxide measurement (moles/volume)on 03-08-2019 CO2 [Moles/Vol] 24.4 mmol/L 22.0-30.0 [facility] Serum or plasma urea nitroge n measurement (mass/volume)on 03-08-2019 Urea nitrogen [Mass/Vol] 9 mg/dL 9-23 [facility] Automated basophil %on 01-28 Basophils/100 WBC (Bld) 0.3 % [facility] Automated basophil counton 1 Basophils (Bld) [#/Vol] 0.0 10*3/uL 0.0-0.2 [facility] Automated blood lymphocyte c ount (number/volume)on 01-28-2019 Lymphocytes (Bld) [#/Vol] 1.6 10*3/uL 1.00-4.8 [facility] Automated blood lymphocyte c ount as percentage of total leukocyteson 01-28-2019 Lymphocytes/100 WBC (Bld) 25.2 % [facility] Automated blood monocyte cou nton 01-28-2019 Monocytes (Bld) [#/Vol] 0.7 10*3/uL 0.0-0.8 [facility] Automated blood platelet cou nt (count/volume)on 01-28-2019 Platelets (Bld) [#/Vol] 246 10*3/uL 150-450 [facility] Automated blood platelet manish n volume measurementon 01-28-2019 Platelet mean volume (Bld) [Entitic vol] 8.6 fL 6.3-10.7 [facility] Automated eosinophil %on Eosinophils/100 WBC (Bld) 3.7 % [facility] Automated eosinophil counton 01-28-2019 Eosinophils (Bld) [#/Vol] 0.2 10*3/uL 0.0-0.45 [facility] Automated erythrocyte distri bution width ratioon 01-28-2019 Erythrocyte distribution width (RBC) [Ratio] 13.4 % 11.9-15.3 [facility] Automated erythrocyte mean c orpuscular hemoglobin (mass per erythrocyte)on 01-28-2019 MCH (RBC) [Entitic mass] 29.2 pg 24.7-34.3 [facility] Automated erythrocyte mean c orpuscular hemoglobin concentration measurement (mass/volon 01-28-2019 MCHC (RBC) [Mass/Vol] 34.1 g/dL 32.0-35.0 [facility] Automated erythrocyte mean c orpuscular volumeon 01-28-2019 MCV (RBC) [Entitic vol] 85.6 fL 80-100 [facility] Automated monocyte %on 01-28 Monocytes/100 WBC (Bld) 10.8 % [facility] Automated neutrophil %on Neutrophils/100 WBC (Bld) 60.0 % [facility] Blood erythrocytes automated count (number/volume)on 01-28-2019 RBC (Bld) [#/Vol] 4.46 10*6/uL 3.60-5.[address] [facility] Blood hemoglobin measurement (mass/volume)on 01-28-2019 Hemoglobin (Bld) [Mass/Vol] 13.0 g/dL 11.8-15.4 [facility] Blood leukocytes automated c ount (number/volume)on 01-28-2019 WBC (Bld) [#/Vol] 6.3 10*3/uL 3.8-11.6 [facility] Blood neutrophil count by au tomated method (number/volume)on 01-28-2019 Neutrophils (Bld) [#/Vol] 3.8 10*3/uL 1.8-7.7 [facility] Body fluid albumin measureme nt (mass/volume)on 01-28-2019 Albumin (Body fld) [Mass/Vol] 3.6 g/dL 3.2-5.5 [facility] Cholesterol [Mass/volume] in Serum or Plasmaon 01-28-2019 Cholesterol [Mass/Vol] 167 mg/dL 140-200 [facility] Comment on above: Chol less than 200 m g/dl low riskChol 201-239 mg/dl borderline riskChol 240 mg/dl and greater high risk Cholesterol in LDL [Mass/vol ume] in Serum or Plasma by calculationon 01-28-2019 Cholesterol in LDL [Mass/Vol] 100 mg/dL 0-100 [facility] Comment on above: LDL ATP III CLASSIFI CATIONLDL less than 100 mg/dL OptimalLDL 100-129 mg/dL Near or above optimalLDL 130-159 mg/dL Borderline highLDL 160-189 mg/dL HighLDL greater than 189 mg/dL Very high Cholesterol in VLDL [Mass/vo lume] in Serum or Plasma by calculationon 01-28-2019 Cholesterol in VLDL [Mass/Vol] 25 mg/dL [facility] Estimated glomerular filtrat ion rate (GFR) non- Americanon 01-28-2019 GFR/1.73 sq M predicted among non-blacks MDRD (S/P/Bld) [Vol rate/Area] 37 mL/min/{1.73_m2} [facility] Hematocrit [Volume Fraction] of Blood by Automated counton 01-28-2019 Hematocrit (Bld) [Volume fraction] 38.2 % 34.0-46.4 [facility] Otheron 01-28-2019 25-Hydroxy Vitamin D Total 28.1 ng/mL 30-100 [facility] Comment on above: VITAMIN D STATUS 25( [place])VITAMIN D RANGE (ng/mL) Deficient <20 Insufficient 20 to <30Sufficient 30 to 100Reference: Yonathan MF,Pedro Luis NC, Alicia MONTIEL, et al. Evaluation,treatment, and prevention of vitamin D deficiency; an Endocrine Society clinical practice guideline. JCEM. 2010; 96(7):1911-30. Cobalamin (Vitamin B12) [Mass/Vol] 319 pg/mL 180-914 [facility] GFR/1.73 sq M.predicted MDRD (S/P/Bld) [Vol rate/Area] 45 mL/min/{1.73_m2} [facility] Comment on above: GFR estimated refere nce range: According to KDOQI guidelines, <60 ml/min/1.73m2 is sufficient to diagnose a patient with chronic kidney disease. Nucleated RBC/100 WBC (Bld) [Ratio] 0.1 % 0-0.5 [facility] Creatinine Clearance (Chem N/A [facility] Protein [Mass/volume] in Ser um or Plasmaon 01-28-2019 Protein [Mass/Vol] 6.1 g/dL 6.1-7.9 [facility] Serum globulin measurement b y calculation (mass/volume)on 01-28-2019 Globulin (S) [Mass/Vol] 2.5 g/dL [facility] Serum or plasma alanine pavon otransferase measurement without P-5'-P (enzymatic activion 01-28-2019 ALT No additional P-5'-P [Catalytic activity/Vol] 21 U/L [facility] Serum or plasma albumin/glob ulin mass ratioon 01-28-2019 Albumin/Globulin [Mass ratio] 1.4 {ratio} [facility] Serum or plasma alkaline elida sphatase measurement (enzymatic activity/volume)on 01-28-2019 ALP [Catalytic activity/Vol] 68 U/L 32-92 [facility] Serum or plasma aspartate am inotransferase measurement (enzymatic activity/volume)on 01-28-2019 AST [Catalytic activity/Vol] 21 U/L 10-42 [facility] Serum or plasma calcium champ urement (mass/volume)on 01-28-2019 Calcium [Mass/Vol] 9.6 mg/dL 8.2-10.2 [facility] Serum or plasma chloride manish surement (moles/volume)on 01-28-2019 Chloride [Moles/Vol] 105 mmol/L 95-114 [facility] Serum or plasma creatinine m easurement with calculation of estimated glomerular filtron 01-28-2019 Creatinine [Mass/Vol] 1.42 mg/dL 0.44-1.03 [facility] Serum or plasma glucose champ urement (mass/volume)on 01-28-2019 Glucose [Mass/Vol] 165 mg/dL 70-100 [facility] Comment on above: ADA recommended refe rence rangeRandom Glucose Reference Range is dependent on time and content of last meal. Glucose of more than 200 mg/dL in a nonstressed, ambulatory subject supports the diagnosis of Diabetes Mellitus. Serum or plasma high density lipoprotein (HDL) cholesterol measurementon 01-28-2019 Cholesterol in HDL [Mass/Vol] 42 mg/dL 35-85 [facility] Comment on above: HDL CHOL ATP-III CLA SSIFICATION Cardiovascular RiskHDL > or equal to 60 mg/dL LOWHDL < 40 mg/dL HIGH Serum or plasma potassium me asurement (moles/volume)on 01-28-2019 Potassium [Moles/Vol] 4.5 mmol/L 3.5-5.1 [facility] Serum or plasma sodium measu rement (moles/volume)on 01-28-2019 Sodium [Moles/Vol] 138 mmol/L 136-146 [facility] Serum or plasma thyroid stim ulating hormone (TSH) measurement by high sensitivity meton 01-28-2019 TSH Qn 1.23 u[iU]/mL 0.45-5.33 [facility] Serum or plasma total biliru bin measurement (mass/volume)on 01-28-2019 Bilirubin [Mass/Vol] 0.6 mg/dL 0.3-1.2 [facility] Serum or plasma total carbon dioxide measurement (moles/volume)on 01-28-2019 CO2 [Moles/Vol] 25.5 mmol/L 22.0-30.0 [facility] Serum or plasma total choles terol/high density lipoprotein (HDL) cholesterol mass ed 01-28-2019 Cholesterol.total/Cho lesterol in HDL [Mass ratio] 4.0 {ratio} [facility] Serum or plasma urea nitroge n measurement (mass/volume)on 01-28-2019 Urea nitrogen [Mass/Vol] 14 mg/dL 9-23 [facility] Triglyceride [Mass/volume] i n Serum or Plasmaon 01-28-2019 Triglyceride [Mass/Vol] 126 mg/dL 35-149 [facility] Comment on above: TRIG ATP III CLASSIF ICATIONTRIG less than 150 mg/dL NormalTRIG 150-199 mg/dL Borderline highTRIG 200-500 mg/dL High TRIG greater than 500 mg/dL Very highStandard traceable to the Center for Disease Conrtrol and Prevention (CDC) test method. Vital Signs Date Time Vital Sign Value Performing Clinician Facility 10-14-2024 08:29-0400 Body height 152.4 cm Eduar Carpenter DPM FACFAS Work Phone: [facility] 10-14-2024 08:29-0400 Body mass index (BMI) [Ratio] 35.15 kg/m2 Eduar Carpenter DPM FACFAS Work Phone: [facility] 10-14-2024 08:29-0400 Body weight 81.65 kg Eduar Carpenter DPM FACFAS Work Phone: [facility] 06-08-2024 15:51-0500 Body height 152.4 cm Ginger Roland EXECUTIVE COMMUNICATIONS MANAGER-C Work Phone: [facility] 06-08-2024 15:51-0500 Body mass index (BMI) [Ratio] 34.9 kg/m2 Ginger Roland EXECUTIVE COMMUNICATIONS MANAGER-C Work Phone: [facility] 06-08-2024 15:51-0500 Body temperature 97.7 [degF] Ginger Spasic EXECUTIVE COMMUNICATIONS MANAGER-C Work Phone: [facility] 06-08-2024 15:51-0500 Body weight 81.24 kg Ginger Spasic EXECUTIVE COMMUNICATIONS MANAGER-C Work Phone: [facility] 06-08-2024 15:51-0500 Diastolic blood pressure 70 mm[Hg] Ginger Spasic EXECUTIVE COMMUNICATIONS MANAGER-C Work Phone: [facility] 06-08-2024 15:51-0500 Heart rate 75 /min Ginger Spasic EXECUTIVE COMMUNICATIONS MANAGER-C Work Phone: [facility] 06-08-2024 15:51-0500 Respiratory rate 18 /min Ginger Spasic EXECUTIVE COMMUNICATIONS MANAGER-C Work Phone: [facility] 06-08-2024 15:51-0500 SaO2% (BldA) [Mass fraction] 94 % Ginger Spasic EXECUTIVE COMMUNICATIONS MANAGER-C Work Phone: [facility] 06-08-2024 15:51-0500 Systolic blood pressure 102 mm[Hg] Ginger Spasic EXECUTIVE COMMUNICATIONS MANAGER-C Work Phone: [facility] 05-10-2024 08:59-0500 Blood Pressure Location Alexi Toward [facility] 05-10-2024 08:59-0500 Body temperature 99.32 [degF] Alexi Toward [facility] 05-10-2024 08:59-0500 Diastolic blood pressure 60 mm[Hg] Alexi Toward [facility] 05-10-2024 08:59-0500 Heart rate 80 /min Alexi Toward [facility] 05-10-2024 08:59-0500 Respiratory rate 16 /min Alexi Toward [facility] 05-10-2024 08:59-0500 SaO2% (BldA) [Mass fraction] 96 % Alexi Toward [facility] 05-10-2024 08:59-0500 Systolic blood pressure 110 mm[Hg] Alexi Toward [facility] 03-25-2024 10:37-0500 Blood Pressure Location Loreta Lupillo [facility] 03-25-2024 10:37-0500 Body temperature 98.06 [degF] Loreta Lupillo [facility] 03-25-2024 10:37-0500 Diastolic blood pressure 66 mm[Hg] Loreta Lupillo [facility] 03-25-2024 10:37-0500 Heart rate 72 /min Loreta Lupillo [facility] 03-25-2024 10:37-0500 Respiratory rate 18 /min Loreta Lupillo [facility] 03-25-2024 10:37-0500 SaO2% (BldA) [Mass fraction] 100 % Loreta Lupillo [facility] 03-25-2024 10:37-0500 Systolic blood pressure 104 mm[Hg] Loreta Lupillo [facility] 03-24-2024 07:54-0500 Blood Pressure Location Marvin Husain [facility] 03-24-2024 07:54-0500 Diastolic blood pressure 76 mm[Hg] Marvin Husain [facility] 03-24-2024 07:54-0500 Heart rate 70 /min Marvin Husain [facility] 03-24-2024 07:54-0500 SaO2% (BldA) [Mass fraction] 98 % Marvin Husain [facility] 03-24-2024 07:54-0500 Systolic blood pressure 128 mm[Hg] Marvin Husain [facility] 02-02-2024 09:31-0400 Blood Pressure Location Loreta Lupillo [facility] 02-02-2024 09:31-0400 Body temperature 97.52 [degF] Loreta Lupillo [facility] 02-02-2024 09:31-0400 Diastolic blood pressure 80 mm[Hg] Loreta Lupillo [facility] 02-02-2024 09:31-0400 Heart rate 82 /min Loreta Lupillo [facility] 02-02-2024 09:31-0400 Respiratory rate 18 /min Loreta Lupillo [facility] 02-02-2024 09:31-0400 SaO2% (BldA) [Mass fraction] 98 % Loreta Lupillo [facility] 02-02-2024 09:31-0400 Systolic blood pressure 128 mm[Hg] Loreta Lupillo [facility] 01-12-2024 14:10-0400 Body temperature 97.7 [degF] Loreta Lupillo [facility] 01-12-2024 14:10-0400 Diastolic blood pressure 84 mm[Hg] Loreta Lupillo [facility] 01-12-2024 14:10-0400 Heart rate 72 /min Loreta Lupillo [facility] 01-12-2024 14:10-0400 Respiratory rate 18 /min Loreta Lupillo [facility] 01-12-2024 14:10-0400 SaO2% (BldA) [Mass fraction] 96 % Loreta Lupillo [facility] 01-12-2024 14:10-0400 Systolic blood pressure 138 mm[Hg] Loreta Lupillo [facility] 01-01-2024 07:30-0400 Body temperature 97.9 [degF] PA-Daina Husain Work Phone: [facility] 01-01-2024 07:30-0400 Diastolic blood pressure 83 mm[Hg] PA-Daina Husain Work Phone: [facility] 01-01-2024 07:30-0400 Heart rate 98 /min PA-Daina Husain Work Phone: [facility] 01-01-2024 07:30-0400 Respiratory rate 16 /min PA-Daina Husain Work Phone: [facility] 01-01-2024 07:30-0400 SaO2% (BldA) [Mass fraction] 98 % PA-C Marvin Husain Work Phone: [facility] 01-01-2024 07:30-0400 Systolic blood pressure 126 mm[Hg] PA-Daina Husain Work Phone: [facility] 12-30-2023 13:52-0400 Body height 152.4 cm PA-C Marvin Husain Work Phone: [facility] 12-29-2023 22:58-0400 Body weight 83.06 kg MIGDALIA Husain Work Phone: [facility] 12-29-2023 20:56-0400 Diastolic blood pressure 83 mm[Hg] [facility] 12-29-2023 20:56-0400 Heart rate 72 /min [facility] 12-29-2023 20:56-0400 Respiratory rate 16 /min [facility] 12-29-2023 20:56-0400 SaO2% (BldA) [Mass fraction] 98 % [facility] 12-29-2023 20:56-0400 Systolic blood pressure 126 mm[Hg] [facility] 12-29-2023 11:40-0400 Body temperature 98.06 [degF] [facility] 12-29-2023 11:40-0400 Diastolic blood pressure 81 mm[Hg] [facility] 12-29-2023 11:40-0400 Heart rate 67 /min [facility] 12-29-2023 11:40-0400 Respiratory rate 16 /min [facility] 12-29-2023 11:40-0400 SaO2% (BldA) [Mass fraction] 97 % [facility] 12-29-2023 11:40-0400 Systolic blood pressure 131 mm[Hg] [facility] 12-29-2023 09:32-0400 Blood Pressure Location Loreta Casillas [facility] 12-29-2023 09:32-0400 Body temperature 97.16 [degF] Loreta Casillas [facility] 12-29-2023 09:32-0400 Diastolic blood pressure 88 mm[Hg] Loreta Lupillo [facility] 12-29-2023 09:32-0400 Heart rate 70 /min Loreta Lupillo [facility] 12-29-2023 09:32-0400 Respiratory rate 18 /min Loreta Lupillo [facility] 12-29-2023 09:32-0400 SaO2% (BldA) [Mass fraction] 97 % Loreta Lupillo [facility] 12-29-2023 09:32-0400 Systolic blood pressure 132 mm[Hg] Loreta Lupillo [facility] 12-01-2023 08:03-0400 Blood Pressure Location Marvin Husain [facility] 12-01-2023 08:03-0400 Body temperature 98.6 [degF] Marvin Husain [facility] 12-01-2023 08:03-0400 Diastolic blood pressure 70 mm[Hg] Marvin Husain [facility] 12-01-2023 08:03-0400 Heart rate 68 /min Marvin Husain [facility] 12-01-2023 08:03-0400 Respiratory rate 18 /min Marvin Husain [facility] 12-01-2023 08:03-0400 SaO2% (BldA) [Mass fraction] 95 % Marvin Husain [facility] 12-01-2023 08:03-0400 Systolic blood pressure 128 mm[Hg] Marvin Husain [facility] 11-23-2023 09:35-0400 Body height 152.4 cm PA-C Marvin Husain Work Phone: [facility] 11-23-2023 09:35-0400 Body mass index (BMI) [Ratio] 36.6 kg/m2 PA-C Marvin Husain Work Phone: [facility] 11-23-2023 09:35-0400 Body weight 84.93 kg PA-C Marvin Husain Work Phone: [facility] 11-23-2023 09:35-0400 Diastolic blood pressure 75 mm[Hg] PA-C Marvin Husain Work Phone: [facility] 11-23-2023 09:35-0400 Heart rate 79 /min PA-C Marvin Husain Work Phone: [facility] 11-23-2023 09:35-0400 Respiratory rate 16 /min PA-C Marvin Husain Work Phone: [facility] 11-23-2023 09:35-0400 SaO2% (BldA) [Mass fraction] 97 % PA-C Marvin Husain Work Phone: [facility] 11-23-2023 09:35-0400 Systolic blood pressure 122 mm[Hg] PA-C Marvin Husain Work Phone: [facility] 10-02-2023 08:20-0400 Blood Pressure Location Marvin Husain [facility] 10-02-2023 08:20-0400 Body temperature 97.88 [degF] Marvin Husain [facility] 10-02-2023 08:20-0400 Diastolic blood pressure 82 mm[Hg] Marvin Husain [facility] 10-02-2023 08:20-0400 Heart rate 63 /min Marvin Husain [facility] 10-02-2023 08:20-0400 Respiratory rate 18 /min Marvin Husain [facility] 10-02-2023 08:20-0400 SaO2% (BldA) [Mass fraction] 99 % Marvin Husain [facility] 10-02-2023 08:20-0400 Systolic blood pressure 126 mm[Hg] Marvin Husain [facility] 09-29-2023 09:35-0400 Body height 152.4 cm Justin Jc MD Work Phone: [facility] 09-29-2023 09:35-0400 Body mass index (BMI) [Ratio] 39.16 kg/m2 Justin Jc MD Work Phone: [facility] 09-29-2023 09:35-0400 Body temperature 98.01 [degF] Justin Jc MD Work Phone: [facility] 09-29-2023 09:35-0400 Body weight 90.95 kg Justin Jc MD Work Phone: [facility] 09-29-2023 09:35-0400 Diastolic blood pressure 63 mm[Hg] Justin Jc MD Work Phone: [facility] 09-29-2023 09:35-0400 Heart rate 67 /min Justin Jc MD Work Phone: [facility] 09-29-2023 09:35-0400 Respiratory rate 20 /min Justin Jc MD Work Phone: [facility] 09-29-2023 09:35-0400 SaO2% (BldA) [Mass fraction] 97 % Justin Jc MD Work Phone: [facility] 09-29-2023 09:35-0400 Systolic blood pressure 127 mm[Hg] Justin Jc MD Work Phone: [facility] 09-22-2023 09:09-0400 Blood Pressure Location Martha Wittenauer [facility] 09-22-2023 09:09-0400 Body temperature 97.88 [degF] Martha Wittenauer [facility] 09-22-2023 09:09-0400 Diastolic blood pressure 88 mm[Hg] Martha Wittenauer [facility] 09-22-2023 09:09-0400 Heart rate 80 /min [place] Wittenauer [facility] 09-22-2023 09:09-0400 Respiratory rate 18 /min [place] Witten[facility] 09-22-2023 09:09-0400 SaO2% (BldA) [Mass fraction] 97 % [place] Wittenauer [facility] 09-22-2023 09:09-0400 Systolic blood pressure 128 mm[Hg] [place] Wittenauer [facility] 09-11-2023 11:11-0400 Blood Pressure Location Marvin Husain [facility] 09-11-2023 11:11-0400 Body temperature 97.88 [degF] Marvin Husain [facility] 09-11-2023 11:11-0400 Diastolic blood pressure 74 mm[Hg] Marvin Husain [facility] 09-11-2023 11:11-0400 Heart rate 75 /min Marvin Husain [facility] 09-11-2023 11:11-0400 Respiratory rate 16 /min Marvin Husain [facility] 09-11-2023 11:11-0400 SaO2% (BldA) [Mass fraction] 98 % Marvin Husain [facility] 09-11-2023 11:11-0400 Systolic blood pressure 130 mm[Hg] Marvin Husain [facility] 08-11-2023 09:52-0400 Blood Pressure Location Marvin Husain [facility] 08-11-2023 09:52-0400 Body temperature 98.24 [degF] Marvin Husain [facility] 08-11-2023 09:52-0400 Diastolic blood pressure 78 mm[Hg] Marvin Husain [facility] 08-11-2023 09:52-0400 Heart rate 70 /min Marvin Husain [facility] 08-11-2023 09:52-0400 Respiratory rate 18 /min Marvin Husain [facility] 08-11-2023 09:52-0400 SaO2% (BldA) [Mass fraction] 98 % Marvin Husain [facility] 08-11-2023 09:52-0400 Systolic blood pressure 132 mm[Hg] Marvin Husain [facility] 08-03-2023 17:24-0400 Diastolic blood pressure 90 mm[Hg] Miguel Mare [facility] 08-03-2023 17:24-0400 Heart rate 71 /min Miguel Bhanu [facility] 08-03-2023 17:24-0400 Mean blood pressure 120 mm[Hg] Miguel Bhanu [facility] 08-03-2023 17:24-0400 Respiratory rate 17 /min Miguel Bhanu [facility] 08-03-2023 17:24-0400 SaO2% (BldA) [Mass fraction] 99 % Miguel Bhanu [facility] 08-03-2023 17:24-0400 Systolic blood pressure 181 mm[Hg] Miguel Bhanu [facility] 08-03-2023 16:56-0400 Diastolic blood pressure 85 mm[Hg] Miguel Bhanu [facility] 08-03-2023 16:56-0400 Heart rate 67 /min Miguel Bhanu [facility] 08-03-2023 16:56-0400 Mean blood pressure 111 mm[Hg] Miguel Bhanu [facility] 08-03-2023 16:56-0400 Respiratory rate 16 /min Miguel Bhanu [facility] 08-03-2023 16:56-0400 SaO2% (BldA) [Mass fraction] 99 % Miguel Bhanu [facility] 08-03-2023 16:56-0400 Systolic blood pressure 163 mm[Hg] Miguel Bhanu [facility] 08-03-2023 15:42-0400 Body temperature 98.24 [degF] Miguel Drummond [facility] 08-03-2023 15:42-0400 Diastolic blood pressure 69 mm[Hg] Miguel Drummond [facility] 08-03-2023 15:42-0400 Heart rate 68 /min Miguel Drummond [facility] 08-03-2023 15:42-0400 Respiratory rate 16 /min Miguel Drummond [facility] 08-03-2023 15:42-0400 SaO2% (BldA) [Mass fraction] 98 % Miguel Drummond [facility] 08-03-2023 15:42-0400 Systolic blood pressure 137 mm[Hg] Miguel Drummond [facility] 07-31-2023 07:51-0400 Blood Pressure Location Marvin Husain [facility] 07-31-2023 07:51-0400 Body temperature 97.88 [degF] Marvin Husain [facility] 07-31-2023 07:51-0400 Diastolic blood pressure 78 mm[Hg] Marvin Husain [facility] 07-31-2023 07:51-0400 Heart rate 62 /min Marvin Husain [facility] 07-31-2023 07:51-0400 Respiratory rate 18 /min Marvin Husain [facility] 07-31-2023 07:51-0400 SaO2% (BldA) [Mass fraction] 98 % Marvin Husain [facility] 07-31-2023 07:51-0400 Systolic blood pressure 120 mm[Hg] Marvin Husain [facility] 06-22-2023 08:43-0400 Blood Pressure Location Marvin Husain [facility] 06-22-2023 08:43-0400 Body temperature 97.88 [degF] Marvin Husain [facility] 06-22-2023 08:43-0400 Diastolic blood pressure 72 mm[Hg] Marvin Husain [facility] 06-22-2023 08:43-0400 Heart rate 67 /min Marvin Husain [facility] 06-22-2023 08:43-0400 Respiratory rate 18 /min Marvin Husain [facility] 06-22-2023 08:43-0400 SaO2% (BldA) [Mass fraction] 99 % Marvin Husain [facility] 06-22-2023 08:43-0400 Systolic blood pressure 118 mm[Hg] Marvin Husain [facility] 05-18-2023 09:00-0500 Body height 165.1 cm Timothy Chidi Other [employer] [facility] [employer] Other 05-18-2023 09:00-0500 Body mass index (BMI) [Ratio] 33.71 kg/m2 Timothy Chidi Other [employer] Other 05-18-2023 09:00-0500 Body temperature 96.3 [degF] Timothy Chidi Other [employer] Other 05-18-2023 09:00-0500 Body weight 91.9 kg Timothy Chidi Other [employer] Other 05-18-2023 09:00-0500 Diastolic blood pressure 77 mm[Hg] Timothy Chidi Other [employer] Other 05-18-2023 09:00-0500 Respiratory rate 18 /min Timothy Chidi Other [employer] Other 05-18-2023 09:00-0500 SaO2% (BldA) [Mass fraction] 97 % Timothy Chidi Other [employer] Other 05-18-2023 09:00-0500 Systolic blood pressure 115 mm[Hg] Timothy Chidi Other [employer] Other 03-24-2023 08:58-0500 Body temperature 97.16 [degF] Marvin Husain [facility] 03-24-2023 08:58-0500 Diastolic blood pressure 68 mm[Hg] Marvin Husain [facility] 03-24-2023 08:58-0500 Heart rate 59 /min Marvin Husain [facility] 03-24-2023 08:58-0500 Respiratory rate 18 /min Marvin Husain [facility] 03-24-2023 08:58-0500 SaO2% (BldA) [Mass fraction] 98 % Marvin Husain [facility] 03-24-2023 08:58-0500 Systolic blood pressure 136 mm[Hg] Marvincait CantuHusain [facility] 11-10-2022 09:00-0400 Body height 165.1 cm Timothy Chidi Other [employer] Other 11-10-2022 09:00-0400 Body mass index (BMI) [Ratio] 34.01 kg/m2 Timothy Chidi Other [employer] Other 11-10-2022 09:00-0400 Body temperature 97.1 [degF] Timothy Chidi Other [employer] Other 11-10-2022 09:00-0400 Body weight 92.72 kg Timothy Chidi Other [employer] Other 11-10-2022 09:00-0400 Diastolic blood pressure 75 mm[Hg] Timothy Chidi Other [employer] Other 11-10-2022 09:00-0400 Respiratory rate 18 /min Timothy Chidi Other [employer] Other 11-10-2022 09:00-0400 SaO2% (BldA) [Mass fraction] 96 % Timothy Chidi Other [employer] Other 11-10-2022 09:00-0400 Systolic blood pressure 156 mm[Hg] Timothy Chidi Other [employer] Other 09-18-2022 13:40-0400 SaO2% (BldA) [Mass fraction] 98 % Dm Lynn MD Work Phone: [facility] [employer] 09-18-2022 11:31-0400 Diastolic blood pressure 85 mm[Hg] Dm Lynn MD Work Phone: [facility] [employer] 09-18-2022 11:31-0400 Systolic blood pressure 144 mm[Hg] Dm Lynn MD Work Phone: [facility] [employer] 09-18-2022 11:30-0400 Heart rate 93 /min Dm Lynn MD Work Phone: [facility] [employer] 09-18-2022 11:26-0400 Respiratory rate 16 /min Dm Lynn MD Work Phone: [facility] [employer] 09-18-2022 07:55-0400 Body temperature 98.01 [degF] Dm Lynn MD Work Phone: [facility] [employer] 09-18-2022 06:00-0400 Body mass index (BMI) [Ratio] 37.75 kg/m2 Dm Lynn MD Work Phone: [facility] [employer] 09-18-2022 06:00-0400 Body weight 87.68 kg Dm Lynn MD Work Phone: [facility] [employer] 09-17-2022 20:15-0400 Body height 152.4 cm Dm Lynn MD Work Phone: [facility] [employer] 05-05-2022 16:20-0500 Body height 165.1 cm Timothy Chidi Other [employer] Other 05-05-2022 16:20-0500 Body mass index (BMI) [Ratio] 30.62 kg/m2 Timothy Chidi Other [employer] Other 05-05-2022 16:20-0500 Body temperature 96.7 [degF] Timothy Chidi Other [employer] Other 05-05-2022 16:20-0500 Body weight 83.46 kg Timothy Chidi Other [employer] Other 05-05-2022 16:20-0500 Diastolic blood pressure 80 mm[Hg] Timothy Chidi Other [employer] Other 05-05-2022 16:20-0500 Respiratory rate 18 /min Timothy Chidi Other [employer] Other 05-05-2022 16:20-0500 SaO2% (BldA) [Mass fraction] 97 % Timothy Chidi Other [employer] Other 05-05-2022 16:20-0500 Systolic blood pressure 139 mm[Hg] Timothy Chidi Other [employer] Other 04-30-2022 13:42-0500 Body height 152.4 cm Justin Jc MD Work Phone: [employer] 04-30-2022 13:42-0500 Body mass index (BMI) [Ratio] 37.69 kg/m2 Justin Jc MD Work Phone: [employer] 04-30-2022 13:42-0500 Body temperature 98.1 [degF] Justin Jc MD Work Phone: [employer] 04-30-2022 13:42-0500 Body weight 87.54 kg Justin Jc MD Work Phone: [employer] 04-30-2022 13:42-0500 Diastolic blood pressure 75 mm[Hg] Justin Jc MD Work Phone: [facility] [employer] 04-30-2022 13:42-0500 Heart rate 74 /min Justin Jc MD Work Phone: [facility] [employer] 04-30-2022 13:42-0500 Respiratory rate 18 /min Justin Jc MD Work Phone: [facility] [employer] 04-30-2022 13:42-0500 SaO2% (BldA) [Mass fraction] 95 % Justin Jc MD Work Phone: [facility] [employer] 04-30-2022 13:42-0500 Systolic blood pressure 153 mm[Hg] Justin Jc MD Work Phone: [facility] [employer] 10-31-2021 08:00-0400 Diastolic blood pressure 73 mm[Hg] Dm Lynn MD Work Phone: [facility] [employer] 10-31-2021 08:00-0400 SaO2% (BldA) [Mass fraction] 97 % Dm Lynn MD Work Phone: [facility] [employer] 10-31-2021 08:00-0400 Systolic blood pressure 130 mm[Hg] Dm Lynn MD Work Phone: [facility] [employer] 10-31-2021 06:43-0400 Body height 152.4 cm Dm Lynn MD Work Phone: [facility] [employer] 10-31-2021 06:43-0400 Body mass index (BMI) [Ratio] 38.36 kg/m2 Dm Lynn MD Work Phone: [facility] [employer] 10-31-2021 06:43-0400 Body temperature 98.29 [degF] Dm Lynn MD Work Phone: [facility] [employer] 10-31-2021 06:43-0400 Body weight 89.09 kg Dm Lynn MD Work Phone: [facility] [employer] 10-31-2021 06:43-0400 Heart rate 80 /min Dm Lynn MD Work Phone: [facility] [employer] 10-31-2021 06:43-0400 Respiratory rate 18 /min Dm Lynn MD Work Phone: [facility] [employer] 09-25-2021 07:46-0400 Body temperature 99 [degF] Justin Jc MD Work Phone: [facility] [employer] 09-25-2021 07:39-0400 Body mass index (BMI) [Ratio] 40.04 kg/m2 Justin Jc MD Work Phone: [facility] [employer] 09-25-2021 07:39-0400 Body weight 92.99 kg Justin Jc MD Work Phone: [employer] 09-25-2021 07:39-0400 Diastolic blood pressure 74 mm[Hg] Justin Jc MD Work Phone: [employer] 09-25-2021 07:39-0400 Heart rate 60 /min Justin Jc MD Work Phone: [facility] [employer] 09-25-2021 07:39-0400 Respiratory rate 18 /min Justin Jc MD Work Phone: [employer] 09-25-2021 07:39-0400 SaO2% (BldA) [Mass fraction] 97 % Justin Jc MD Work Phone: [employer] 09-25-2021 07:39-0400 Systolic blood pressure 138 mm[Hg] Justin Jc MD Work Phone: [facility] [employer] 09-24-2021 11:00-0400 Body height 165.1 cm Timothy Presley Other [employer] Other 09-24-2021 11:00-0400 Body mass index (BMI) [Ratio] 34.14 kg/m2 Timothy Chidi Other [employer] Other 09-24-2021 11:00-0400 Body temperature 96 [degF] Timothy Chidi Other [employer] Other 09-24-2021 11:00-0400 Body weight 93.08 kg Timothy Chidi Other [employer] Other 09-24-2021 11:00-0400 Diastolic blood pressure 76 mm[Hg] Timothy Chidi Other [employer] Other 09-24-2021 11:00-0400 Respiratory rate 186 /min Timothy Chidi Other [employer] Other 09-24-2021 11:00-0400 SaO2% (BldA) [Mass fraction] 97 % Timothy Chidi Other [employer] Other 09-24-2021 11:00-0400 Systolic blood pressure 131 mm[Hg] Timothy Chidi Other [employer] Other 01-15-2021 13:39-0400 Body height 152.4 cm Justin Jc MD Work Phone: [employer] Work Phone: 01-15-2021 13:39-0400 Body mass index (BMI) [Ratio] 42.01 kg/m2 Justin Jc MD Work Phone: [employer] Work Phone: 01-15-2021 13:39-0400 Body temperature 98.29 [degF] Justin Jc MD Work Phone: [employer] Work Phone: 01-15-2021 13:39-0400 Body weight 97.57 kg Justin Jc MD Work Phone: [employer] Work Phone: 01-15-2021 13:39-0400 Diastolic blood pressure 66 mm[Hg] Justin Jc MD Work Phone: [employer] Work Phone: 01-15-2021 13:39-0400 Heart rate 71 /min Justin Jc MD Work Phone: [employer] Work Phone: 01-15-2021 13:39-0400 Respiratory rate 20 /min Justin Jc MD Work Phone: [employer] Work Phone: 01-15-2021 13:39-0400 SaO2% (BldA) [Mass fraction] 96 % Justin Jc MD Work Phone: [employer] Work Phone: 01-15-2021 13:39-0400 Systolic blood pressure 133 mm[Hg] Justin Jc MD Work Phone: [employer] Work Phone: 12-23-2020 10:19-0400 Body mass index (BMI) [Ratio] 41.99 kg/m2 Dm Lynn MD Work Phone: [employer] Work Phone: 12-23-2020 10:19-0400 Body temperature 98.49 [degF] Dm Lynn MD Work Phone: [employer] Work Phone: 12-23-2020 10:19-0400 Body weight 97.52 kg Dm Lynn MD Work Phone: [employer] Work Phone: 12-23-2020 10:19-0400 Diastolic blood pressure 66 mm[Hg] Dm Lynn MD Work Phone: [employer] Work Phone: 12-23-2020 10:19-0400 Heart rate 59 /min Dm Lynn MD Work Phone: [employer] Work Phone: 12-23-2020 10:19-0400 Respiratory rate 18 /min Dm Lynn MD Work Phone: [employer] Work Phone: 12-23-2020 10:19-0400 SaO2% (BldA) [Mass fraction] 97 % Dm Lynn MD Work Phone: [employer] Work Phone: 12-23-2020 10:19-0400 Systolic blood pressure 132 mm[Hg] Dm Lynn MD Work Phone: [employer] Work Phone: 2020 13:00-0400 Diastolic blood pressure 48 mm[Hg] [facility] [employer] Work Phone: 2020 13:00-0400 Heart rate 64 /min [facility] [employer] Work Phone: 2020 13:00-0400 Respiratory rate 14 /min [facility] [employer] Work Phone: 2020 13:00-0400 SaO2% (BldA) [Mass fraction] 97 % [facility] [employer] Work Phone: 2020 13:00-0400 Systolic blood pressure 123 mm[Hg] [facility] Work [facility]: 2020 10:18-0400 Body height 152.4 cm [facility] [employer] Work Phone: 2020 10:18-0400 Body mass index (BMI) [Ratio] 41.01 kg/m2 [facility] Work Phone: 2020 10:18-0400 Body temperature 97.81 [degF] [facility] [employer] Work Phone: 2020 10:18-0400 Body weight 95.25 kg [facility] [employer] Work Phone: 11-24-2020 16:05-0400 Body temperature 33.1 [degF] Jaswant Rees MD Work Phone: [employer] Work Phone: 11-24-2020 16:05-0400 Diastolic blood pressure 91 mm[Hg] Jaswant Rees MD Work Phone: [employer] Work Phone: 11-24-2020 16:05-0400 Heart rate 53 /min Jaswant Rees MD Work Phone: [employer] Work Phone: 11-24-2020 16:05-0400 Respiratory rate 14 /min Jaswant Rees MD Work Phone: [employer] Work Phone: 11-24-2020 16:05-0400 Systolic blood pressure 150 mm[Hg] Jaswant Rees MD Work Phone: [employer] Work Phone: 11-24-2020 11:40-0400 SaO2% (BldA) [Mass fraction] 95 % Jaswant Rees MD Work Phone: [employer] Work Phone: 11-22-2020 06:00-0400 Body mass index (BMI) [Ratio] 41.51 kg/m2 Jaswant Rees MD Work Phone: [employer] Work Phone: 11-22-2020 06:00-0400 Body weight 96.4 kg Jaswant Rees MD Work Phone: [employer] Work Phone: 11-22-2020 01:15-0400 Body height 152.4 cm Jaswant Rees MD Work Phone: [employer] Work Phone: 11-21-2020 23:06-0400 Diastolic blood pressure 82 mm[Hg] Antonio Ty MD Work Phone: [employer] Work Phone: 11-21-2020 23:06-0400 Heart rate 85 /min Antonio Ty MD Work Phone: [employer] Work Phone: 11-21-2020 23:06-0400 Respiratory rate 21 /min Antonio Ty MD Work Phone: [employer] Work Phone: 11-21-2020 23:06-0400 SaO2% (BldA) [Mass fraction] 95 % Antonio Ty MD Work Phone: [employer] Work Phone: 11-21-2020 23:06-0400 Systolic blood pressure 148 mm[Hg] Antonio Ty MD Work Phone: [employer] Work Phone: 11-21-2020 13:52-0400 Body height 152.4 cm Antonio Ty MD Work Phone: [employer] Work Phone: 11-21-2020 13:52-0400 Body mass index (BMI) [Ratio] 40.62 kg/m2 Antonio Ty MD Work Phone: [employer] Work Phone: 11-21-2020 13:52-0400 Body temperature 98.8 [degF] Antonio Ty MD Work Phone: [employer] Work Phone: 11-21-2020 13:52-0400 Body weight 94.35 kg Antonio Ty MD Work Phone: [employer] Work Phone: 10-25-2020 19:50-0400 Diastolic blood pressure 64 mm[Hg] Justin Jc MD Work Phone: [employer] Work Phone: 10-25-2020 19:50-0400 Heart rate 89 /min Justin Jc MD Work Phone: [employer] Work Phone: 10-25-2020 19:50-0400 Respiratory rate 31 /min Justin Jc MD Work Phone: [employer] Work Phone: 10-25-2020 19:50-0400 SaO2% (BldA) [Mass fraction] 95 % Justin Jc MD Work Phone: [employer] Work Phone: 10-25-2020 19:50-0400 Systolic blood pressure 113 mm[Hg] Justin Jc MD Work Phone: [employer] Work Phone: 10-24-2020 23:07-0400 Body height 160 cm Justin Jc MD Work Phone: [employer] Work Phone: 10-24-2020 23:07-0400 Body mass index (BMI) [Ratio] 37.55 kg/m2 Justin Jc MD Work Phone: [employer] Work Phone: 10-24-2020 23:07-0400 Body temperature 98.8 [degF] Justin Jc MD Work Phone: [employer] Work Phone: 10-24-2020 23:07-0400 Body weight 96.16 kg Justin Jc MD Work Phone: [employer] Work Phone: Encounters Encounter Date Encounter Type Care Provider Facility Start: 03-24-2025 ambulatory MSN, APPLE PACKING HEADER-ACTIVITY THERAPIST Loreta Casillas Facility: [facility] Start: 11-22-2024 End: 11-22-2024 ambulatory Loreta Casillas Facility:[facility] Start: 11-22-2024 End: 11-22-2024 Patient encounter procedure Loreta Casillas [facility] [place] Start: 11-01-2024 End: 11-01-2024 ambulatory Loreta Casillas EXECUTIVE COMMUNICATIONS MANAGER-C Work Phone: [facility] Work Phone: Start: 11-01-2024 End: 11-01-2024 Patient encounter procedure Kendra Marquez MD [facility] Work Phone: Start: 10-14-2024 End: 10-14-2024 Bamboo flowsheet Eduar D Dolce DPM FACFAS Work Phone: [facility] Start: 10-14-2024 End: 10-14-2024 Bamboo flowsheet Eduar D Dolce DPM FACFAS Work Phone: [facility] Start: 10-14-2024 End: 10-14-2024 Patient encounter procedure Eduar Keagan Dolce DPM FACFAS Work Phone: [facility] Comment on above: 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); Onychomycosis; Pain in right toe(s); Pain in left toe(s) Start: 10-14-2024 End: 10-14-2024 ambulatory EDUAR MOFFETTCE Not Available Start: 09-06-2024 End: 09-06-2024 Lab Drop off Loreta Casillas [facility] Start: 09-06-2024 End: 09-06-2024 ambulatory Loreta Casillas Facility: [facility] Start: 09-06-2024 End: 09-06-2024 Patient encounter procedure Loreta Casillas [facility] [place] Start: 08-02-2024 End: 08-02-2024 ambulatory Ginger E Spasic EXECUTIVE COMMUNICATIONS MANAGER-C Work Phone: [facility] Work Phone: Start: 08-02-2024 End: 08-02-2024 Patient encounter procedure Ginger Spasic EXECUTIVE COMMUNICATIONS MANAGER-C Work Phone: [facility] Physician [facility] Work Phone: Start: 07-25-2024 End: 07-25-2024 Lab Drop off Loreta Casillas [facility] Start: 07-25-2024 End: 07-25-2024 ambulatory Loreta Savage Casillas Facility:[facility] Start: 06-17-2024 End: 06-17-2024 ambulatory EDUAR CARPENTER Not Available Start: 06-08-2024 End: 06-08-2024 ambulatory Ginger E Spasic EXECUTIVE COMMUNICATIONS MANAGER-C Work Phone: [facility] Work Phone: Start: 06-08-2024 End: 06-08-2024 Patient encounter procedure Ginger Spasic EXECUTIVE COMMUNICATIONS MANAGER-C Work Phone: [facility] Physician [facility] Work Phone: Start: 06-07-2024 Non-patient / Non-visit Ginger Spasic EXECUTIVE COMMUNICATIONS MANAGER-C Work Phone: [facility] Physician [facility] Work Phone: Start: 06-07-2024 End: 06-07-2024 ambulatory Ginger E Spasic EXECUTIVE COMMUNICATIONS MANAGER-C Work Phone: [facility] Work Phone: Start: 06-07-2024 End: 06-07-2024 Departed Referred Ginger Gayec EXECUTIVE COMMUNICATIONS MANAGER-C Work Phone: [facility] Start: 06-07-2024 Registered Referred Ginger Sams ic EXECUTIVE COMMUNICATIONS MANAGER-C Work Phone: [facility] Start: 05-10-2024 End: 05-10-2024 ambulatory Alexi E Toward Facility:[facility] Start: 05-10-2024 End: 05-10-2024 Lab Drop off Alexi E Toward [facility] Start: 05-10-2024 End: 05-10-2024 ambulatory Alexi E Toward Facility:[facility] Start: 05-10-2024 End: 05-10-2024 Patient encounter procedure Alexi E Toward [facility] [place] Start: 05-03-2024 End: 05-03-2024 ambulatory Ginger Calhoun Gayec EXECUTIVE COMMUNICATIONS MANAGER-C Work Phone: [facility] Work Phone: Start: 05-03-2024 End: 05-03-2024 Patient encounter procedure Ginger Hymanjessicac EXECUTIVE COMMUNICATIONS MANAGER-C Work Phone: [facility] Work Phone: Start: 04-19-2024 End: 04-19-2024 ambulatory Loreta Casillas Facility:[facility] Start: 04-19-2024 End: 04-19-2024 Patient encounter procedure Loreta Casillas [facility] [place] Start: 03-29-2024 End: 03-29-2024 ambulatory Loreta Casillas Facility:[facility] Start: 03-29-2024 End: 03-29-2024 Patient encounter procedure Loreta Casillas [facility] Start: 03-25-2024 End: 03-25-2024 ambulatory Loreta Casillas Facility:[facility] Start: 03-25-2024 End: 03-25-2024 [facility] Start: 03-24-2024 End: 03-24-2024 ambulatory Marvin Husain Facility:[facility] Start: 03-24-2024 End: 03-24-2024 Patient encounter procedure Marvin Husain [facility] Start: 03-24-2024 End: 03-24-2024 Well adult monitoring check done Marvin Husain [facility] Start: 03-08-2024 End: 03-08-2024 Patient encounter procedure Ginger Roland EXECUTIVE COMMUNICATIONS MANAGER-C Work Phone: [facility] Work Phone: Start: 02-23-2024 End: 02-23-2024 Patient encounter procedure Marvin Husain PA-C Work Phone: [facility]ro[facility] Work Phone: Start: 02-23-2024 End: 02-23-2024 ambulatory Marvin BALBUENAC Work Phone: [facility] Work Phone: Start: 02-09-2024 End: 02-09-2024 ambulatory PANicoleC Marvin Husain Work Phone: [facility] Work Phone: Start: 02-09-2024 End: 02-09-2024 Departed Referred PAN[employer]oleC Marvin Myricker Work Phone: [facility] Start: 02-02-2024 End: 02-02-2024 ambulatory Loreta Casillas Facility:[facility] Start: 02-02-2024 End: 02-02-2024 Patient encounter procedure Loreta Casillas [facility] Start: 01-12-2024 End: 01-12-2024 ambulatory Loreta Casillas Facility:[facility] Start: 01-12-2024 End: 01-12-2024 Patient encounter procedure Loreta Casillas [facility] Start: 01-12-2024 End: 01-12-2024 ambulatory KONG-Daina Husain Work Phone: [facility] Work Phone: Start: 01-12-2024 End: 01-12-2024 Patient encounter procedure KONG-Daina Husain Work Phone: [facility] Physician [facility] Work Phone: Start: 01-04-2024 End: 01-04-2024 ambulatory Lottie Pak [place] Facility:[facility] Start: 01-04-2024 End: 01-04-2024 Patient encounter procedure Lottie NinaMary Kate Townsend [facility] Start: 01-01-2024 End: 02-10-2024 ambulatory Jia Cordova Facility:CD:[id number] Start: 12-30-2023 Non-patient / Non-visit MIGDALIA Husain Work Phone: [facility] Physician [facility] Work Phone: Start: 12-29-2023 End: 01-01-2024 Evaluation and management of inpatient PA-C Marvin Husain Work Phone: [facility] Work Phone: Start: 12-29-2023 End: 12-29-2023 Emergency department patient visit Vasile Robison [facility] Start: 12-29-2023 ambulatory Mckinley Parker acility:[facility] Start: 12-29-2023 Registered Recurring PA-C Zena Husian Work Phone: [facility] Start: 12-29-2023 End: 12-29-2023 ambulatory Loreta Casillas Facility:[facility] Start: 12-29-2023 End: 12-29-2023 Patient encounter procedure Loreta Casillas [facility] [place] Start: 12-14-2023 End: 12-14-2023 ambulatory Marvin Husain Facility:[facility] Start: 12-14-2023 End: 12-14-2023 Patient encounter procedure Lottie WoodMary Kate Townsend [facility] Start: 12-01-2023 End: 12-01-2023 Lab Drop off Marvin Husain [facility] Start: 12-01-2023 End: 12-01-2023 ambulatory Marvin Husain Facility:[facility] Start: 12-01-2023 End: 12-01-2023 Patient encounter procedure Marvin Husain [facility] [place] Start: 11-23-2023 End: 11-23-2023 ambulatory PA-C Marvin Husain Work Phone: [facility] Work Phone: Start: 11-23-2023 End: 11-23-2023 Patient encounter procedure MIGDALIA Husain Work Phone: [facility] Work Phone: Start: 11-18-2023 End: 11-18-2023 Patient encounter procedure MIGDALIA Husain Work Phone: [facility] [place] Work Phone: Start: 11-18-2023 End: 11-18-2023 ambulatory KONG-Daina Husain Work Phone: [facility] Work Phone: Start: 11-02-2023 End: 11-02-2023 ambulatory Pitobrant WoodMary Kate Townsend Facility:[facility] Start: 11-02-2023 End: 11-02-2023 Patient encounter procedure Pitobrant WoodMary Kate Townsend [facility] Start: 10-02-2023 End: 10-02-2023 ambulatory Marvin Husain Facility:[facility] Start: 10-02-2023 End: 10-02-2023 Patient encounter procedure Marvin Husain [facility] Start: 10-02-2023 End: 10-02-2023 ambulatory Marvin Husain Facility:[facility] Start: 10-02-2023 End: 10-02-2023 Patient encounter procedure Marvin Husain [facility] [place] Start: 09-29-2023 End: 09-29-2023 Emergency department patient visit Justin Jc MD Work Phone: [facility] Comment on above: Biceps femoris tendo n strain at knee (Primary Dx) Start: 09-22-2023 End: 09-22-2023 Patient encounter procedure Martha HooperMary Kate Tony [facility] [place] Start: 09-22-2023 End: 09-22-2023 ambulatory Martha HooperMary Kate Vergaraleonidesglenn Facility:[facility] Start: 09-11-2023 End: 09-11-2023 ambulatory Marvin Husain Facility:[facility] Start: 09-11-2023 End: 09-11-2023 Patient encounter procedure Marvin Husain [facility] [place] Start: 08-17-2023 End: 12-08-2023 ambulatory Justin DOYLE [facility] [place] Start: 08-17-2023 End: 12-08-2023 Recurring Justin DOYLE [facility] Start: 08-11-2023 End: 08-11-2023 ambulatory Marvin Husain Facility:[facility] Start: 08-11-2023 End: 08-11-2023 Patient encounter procedure Marvin Husain [facility] Start: 08-03-2023 End: 08-03-2023 Emergency department patient visit Miguel Drummond [facility] Start: 07-31-2023 End: 07-31-2023 ambulatory Marvin Husain Facility:[facility] Start: 07-31-2023 End: 07-31-2023 Patient encounter procedure Marvin Husain [facility] Start: 06-23-2023 End: 06-23-2023 ambulatory Marvin Husain Facility:[facility] Start: 06-23-2023 End: 06-23-2023 Patient encounter procedure Marvin Husain [facility] Start: 06-22-2023 End: 06-22-2023 ambulatory Marvin Husain Facility:[facility] Start: 06-22-2023 End: 06-22-2023 [facility] Start: 05-18-2023 End: 05-18-2023 ambulatory Timothy Chidi Other [facility] [employer] Other Start: 05-18-2023 Office outpatient vi sit 25 minutes Timothy Chidi [facility] Start: 04-01-2023 End: 04-01-2023 ambulatory Marvin Husain Facility:[facility] Start: 04-01-2023 End: 04-01-2023 Patient encounter procedure Marvin Husain [facility] Start: 03-24-2023 End: 03-24-2023 [facility] Start: 02-27-2023 End: 02-27-2023 Patient encounter procedure SELF REFERRAL [facility] Start: 01-26-2023 End: 01-27-2023 Pre-admission assessment Lottie Townsend [facility] Start: 12-23-2022 End: 12-23-2022 Lab Drop off Marvin Husain [facility] Start: 11-26-2022 End: 11-26-2022 ambulatory [facility] Start: 11-26-2022 End: 11-26-2022 Subsequent hospital visit by physician Saba Willams FINE DINING SERV[employer] [facility] Comment on above: Arrived Start: 11-19-2022 Telephone encounter Timothy Chidi [facility] Start: 11-19-2022 End: 11-19-2022 ambulatory [facility] [employer] Other Start: 11-19-2022 End: 11-19-2022 Subsequent hospital visit by physician Saba Willams FINE DINING SERV[employer] [facility] Comment on above: Arrived Start: 11-17-2022 End: 11-18-2022 ambulatory [facility] Start: 11-14-2022 End: 11-14-2022 Patient encounter procedure Lotite NinaMary Kate Townsend [facility] Start: 11-12-2022 End: 11-12-2022 ambulatory [facility] Start: 11-11-2022 End: 11-11-2022 ambulatory [facility] Start: 11-10-2022 End: 11-10-2022 ambulatory Timothy Chidi Other [facility] [employer] Other Start: 11-10-2022 Office outpatient vi sit 15 minutes Timothy Chidi [facility] Start: 11-05-2022 End: 11-05-2022 ambulatory [facility] Start: 10-22-2022 End: 10-22-2022 ambulatory [facility] Start: 10-08-2022 End: 10-08-2022 ambulatory [facility] Start: 10-02-2022 End: 10-02-2022 [facility] Start: 09-17-2022 End: 09-18-2022 Emergency department patient visit Dm Lynn MD Work Phone: [facility]E MED SURG TELEMETRY Comment on above: Precordial pain (Danii karyn Dx); Hypoglycemia Start: 09-17-2022 End: 09-17-2022 ambulatory Timothy Chidi Other [employer] Other Start: 09-17-2022 Telephone encounter Timothy Chidi [facility] Start: 09-16-2022 End: 09-17-2022 ambulatory MALDONADO GONZALEZ [facility] Start: 09-16-2022 End: 09-16-2022 Subsequent hospital visit by physician Obed Dunn MD Work Phone: [facility] Start: 08-12-2022 End: 08-12-2022 Subsequent hospital visit by physician Obed Dunn MD Work Phone: [facility] Start: 06-30-2022 End: 06-30-2022 Subsequent hospital visit by physician Obed Dunn MD Work Phone: [facility] Comment on above: Acquired hypothyroid ism; Urgency incontinence Start: 05-13-2022 End: 05-13-2022 Subsequent hospital visit by physician bOed Dunn MD Work Phone: [facility] Start: 05-07-2022 End: 05-07-2022 Subsequent hospital visit by physician Obed Dunn MD Work Phone: [facility] Comment on above: Urgency incontinence ; Urine frequency Start: 05-05-2022 End: 05-05-2022 ambulatory Timothy Chidi Other [employer] Other Start: 05-05-2022 Office outpatient vi sit 25 minutes Timothy Chidi [facility] Start: 04-30-2022 End: 04-30-2022 Emergency department patient visit Justin Jc MD Work Phone: [facility] ED Comment on above: Infrapatellar bursit is of left knee (Primary Dx) Start: 02-14-2022 End: 02-14-2022 Subsequent hospital visit by physician Amanda Hobson PT [facility] Comment on above: Arrived Start: 02-06-2022 End: 02-06-2022 Subsequent hospital visit by physician Rony Crawford PTA [facility] Comment on above: Arrived Start: 02-03-2022 End: 02-03-2022 Subsequent hospital visit by physician Rony Crawford PTA [facility] Comment on above: Arrived Start: 01-30-2022 End: 01-30-2022 Subsequent hospital visit by physician Rony Crawford PTA [facility] Comment on above: Arrived Start: 01-20-2022 End: 01-20-2022 Subsequent hospital visit by physician Rony Crawford PTA [facility] Comment on above: Arrived Start: 01-15-2022 End: 01-15-2022 Subsequent hospital visit by physician Rony Crawford PTA [facility] Comment on above: Arrived Start: 01-09-2022 End: 01-09-2022 Subsequent hospital visit by physician Rony Crawford PTA [facility] Start: 01-07-2022 End: 01-07-2022 Subsequent hospital visit by physician Amanda Hobson PT [facility] Comment on above: Arrived Start: 11-25-2021 End: 11-27-2021 Subsequent hospital visit by physician [facility] Mri Scanner [facility] Comment on above: Acute pain of right knee Start: 11-18-2021 End: 11-18-2021 Subsequent hospital visit by physician Obed Dunn MD Work Phone: [facility] Comment on above: Weight loss; Other specified diabetes mellitus with other specified complication, unspecified whether mcc insulin use (HCC); Hypothyroidism, unspecified type Start: 10-31-2021 End: 10-31-2021 Emergency department patient visit Dm Lynn MD Work Phone: [facility] ED Comment on above: Fall, initial encoun ter (Primary Dx); Confusion Start: 09-25-2021 End: 09-25-2021 Emergency department patient visit Justin Jc MD Work Phone: [facility] ED Comment on above: Effusion of right kn ee (Primary Dx) Start: 09-24-2021 End: 09-24-2021 ambulatory Timothy Presley Other [facility] [employer] Other Start: 09-24-2021 Office outpatient vi sit 25 minutes Timothy Chidi [facility] Start: 09-20-2021 End: 09-20-2021 Subsequent hospital visit by physician saul Covid19 Pat Screening Schedule [facility] PRE [facility]MIT Comment on above: Viral upper respirat ory tract infection Start: 08-15-2021 End: 08-17-2021 Subsequent hospital visit by physician Dawn Cat Scan Room [facility] Comment on above: PE (pulmonary thromb oembolism) ([facility]) Start: 03-04-2021 End: 03-04-2021 Subsequent hospital visit by physician Obed Dunn MD Work Phone: [facility]AT[facility] Comment on above: Tachycardia Start: 02-18-2021 End: 02-18-2021 Subsequent hospital visit by physician Rony Crawford PTA [facility] Comment on above: Arrived Start: 02-15-2021 End: 02-15-2021 Subsequent hospital visit by physician Rosie Dior [facility] Comment on above: Arrived Start: 01-31-2021 End: 01-31-2021 Subsequent hospital visit by physician Rnoy Crawford PTA [facility] Comment on above: Arrived Start: 01-28-2021 End: 01-28-2021 Subsequent hospital visit by physician Rony Crawford PTA [facility] Comment on above: Arrived Start: 01-24-2021 End: 01-24-2021 Subsequent hospital visit by physician Amanda Hobson PT [facility] Comment on above: Arrived Start: 01-21-2021 End: 01-21-2021 Subsequent hospital visit by physician Rony Crawford PTA [facility] Comment on above: Arrived Start: 01-17-2021 End: 01-17-2021 Subsequent hospital visit by physician Amanda Hobson PT [facility] Comment on above: Arrived Start: 01-15-2021 End: 01-15-2021 Emergency department patient visit Justin Jc MD Work Phone: [phone] [place] [address] ED Comment on above: Accidental fall, ini tial encounter (Primary Dx); [facility] (current) use of anticoagulants Start: 01-15-2021 End: 01-15-2021 Subsequent hospital visit by physician Rosie Dior [facility] Physical Therapy Comment on above: Arrived Start: 01-14-2021 End: 01-14-2021 Subsequent hospital visit by physician Rony Crawford ADJUNCT LATIN PROFESSOR [facility] Physical Therapy Start: 01-10-2021 End: 01-10-2021 Subsequent hospital visit by physician Amanda Hobson PT [facility] Physical Therapy Comment on above: Arrived Start: 01-01-2021 End: 01-01-2021 Subsequent hospital visit by physician Obed Dunn MD Work Phone: [facility] Laboratory Comment on above: Leg swelling Start: 12-23-2020 End: 12-23-2020 Emergency department patient visit Dm Lynn MD Work Phone: [facility] ED Comment on above: Leg edema (Primary D x) Start: 2020 End: 12-21-2020 Subsequent hospital visit by physician [facility] Radiologist [facility] CT Scan Start: 11-22-2020 End: 11-24-2020 Evaluation and management of inpatient EDWARDO FARRIS [facility] Start: 11-22-2020 End: 11-24-2020 Evaluation and management of inpatient Jaswant Rees MD Work Phone: [facility] CAR 3 Start: 11-21-2020 End: 11-21-2020 Emergency department patient visit Antonio Ty MD Work Phone: [facility] ED Comment on above: Acute pulmonary embo lism, unspecified pulmonary embolism type, unspecified whether acute cor pulmonale present (HCC) (Primary Dx); Left upper quadrant abdominal pain; Essential hypertension; Pneumonia of both lower lobes due to infectious organism; Urinary tract infection with hematuria, site unspecified Start: 11-15-2020 End: 11-17-2020 Subsequent hospital visit by physician [facility] Gen Radiologist [facility] Radiology Comment on above: Other dysphagia Start: 11-15-2020 End: 11-15-2020 Subsequent hospital visit by physician [facility] Covid19 Pat Screening Schedule [facility] PRE [facility] Comment on above: Arrived Start: 10-24-2020 End: 10-25-2020 Emergency department patient visit Justin Jc MD Work Phone: [facility] ED Comment on above: Cerebrovascular acci dent (CVA), unspecified mechanism (HCC) (Primary Dx) Start: 10-23-2020 End: 10-23-2020 Subsequent hospital visit by physician Obed Dunn MD Work Phone: [facility] Comment on above: Acquired hypothyroid ism Start: 08-27-2020 End: 08-29-2020 Subsequent hospital visit by physician Dawn [facility] Dexa Scan Comment on above: Ovarian failure Start: 08-01-2020 End: 08-01-2020 Subsequent hospital visit by physician Obed Dunn MD Work Phone: [facility] Comment on above: Type 2 diabetes blanca itus without complication, with long-term current use of insulin (HCC) Start: 04-20-2019 Patient encounter procedure [facility] Start: 03-08-2019 End: 03-08-2019 Departed [facility] Start: 01-28-2019 End: 01-28-2019 Patient encounter procedure [facility] Start: 09-09-2018 Registered [facility] Start: 11-19-2017 Patient encounter procedure AMAURY APARICIOKhalida Facility:[id number] Start: 11-19-2017 Patient encounter Facil [id number] Start: 02-19-2017 Patient encounter Facil [id number] Procedures Date Procedure Procedure Detail Performing Clinician Start: 06-07-2024 Urine culture Ginger Hyman sic EXECUTIVE COMMUNICATIONS MANAGER-C Work Phone: Start: 09-18-2022 Rhythm ecg 1-3 leads w/interpretation & report Unknown Provider Result Start: 09-18-2022 Myocardial spect mul tiple studies Oni Delarosa MD Work Phone: Start: 09-18-2022 Rhythm ecg 1-3 leads w/interpretation & report Unknown Provider Result Start: 09-18-2022 Echo tthrc r-t 2d w/wom-mode compl spec&colr d Oni Delarosa MD Work Phone: Start: 09-18-2022 Rhythm ecg 1-3 leads w/interpretation & report Unknown Provider Result Start: 09-18-2022 Gluc bld gluc mntr d ev cleared fda spec home use Chino Nielsen MD Work Phone: Start: 09-18-2022 Assay of troponin quantitative Chino Nielsen MD Work Phone: Start: 09-18-2022 BASIC METABOLIC PANE L W/ REFLEX TO MG FOR LOW K Chino Nielsen MD Work Phone: Start: 09-17-2022 Ecg routine ecg w/le ast 12 lds w/i&r Dm Lynn MD Work Phone: Start: 09-17-2022 End: 09-17-2022 Comprehensive metabolic panel Dm Lynn MD Work Phone: Start: 09-17-2022 Ecg routine ecg w/le ast 12 lds w/i&r Dm Lynn MD Work Phone: Start: 09-17-2022 End: 09-17-2022 Gluc bld gluc mntr dev cleared fda spec home use Dm Lynn MD Work Phone: Start: 08-12-2022 Urinalysis microscopic only Unknown Provider Result Start: 08-12-2022 Urnls dip stick/tabl et rgnt auto w/o microscopy Unknown Provider Result Start: 07-28-2022 Colonoscopy Obed meneses MD Work Phone: Start: 06-30-2022 Assay of thyroid stimulating hormone tsh Obed Dunn MD Work Phone: Start: 05-13-2022 Assay of ferritin Li Iram TRIANA Work Phone: Start: 05-07-2022 Urinalysis microscopic only Obed Dunn MD Work Phone: Start: 05-07-2022 Urnls dip stick/tabl et rgnt auto w/o microscopy Obed Dunn MD Work Phone: Start: 04-30-2022 Radiologic exam knee complete 4/more views Justin Jc MD Work Phone: Start: 11-25-2021 Mri any jt lower ext rem w/o contrast matrl Sandra Stuart Looney APPLE PACKING HEADER - ACTIVITY THERAPIST Work Phone: Start: 11-18-2021 Blood count hemoglobin Obed Dunn MD Work Phone: Start: 11-18-2021 Comprehensive metabo lic panel Juan Pablo Cosby MD Work Phone: Start: 11-18-2021 VITAMIN B12 & FOLATE Mo alberto Cosby MD Work Phone: Start: 10-31-2021 Ct head/brain w/o co ntrast material Dm Lynn MD Work Phone: Start: 09-25-2021 Radiologic exam knee complete 4/more views Justin Jc MD Work Phone: Start: 09-20-2021 COVID-19, RAPID Sarah S Abi APPLE PACKING HEADER - ACTIVITY THERAPIST Work Phone: Start: 08-15-2021 Ct angiography chest w/contrast/noncontrast Juan Pablo Cosby MD Work Phone: Start: 08-15-2021 Fibrin dgradj produc ts d-dimer quantitative Juan Pablo Cosby MD Work Phone: Start: 03-04-2021 Ecg routine ecg w/le ast 12 lds w/i&r Delma Amin APPLE PACKING HEADER - ACTIVITY THERAPIST Work Phone: Start: 01-15-2021 Ct cervical spine w/ o contrast material Justin Jc MD Work Phone: Start: 01-15-2021 Ct head/brain w/o co ntrast material Justin Jc MD Work Phone: Start: 01-01-2021 Basic metabolic pane l calcium total Obed Dunn MD Work Phone: Start: 12-23-2020 Urinalysis microscopic only Dm Lynn MD Work Phone: Start: 12-23-2020 Urnls dip stick/tabl et rgnt auto w/o microscopy Dm Lynn MD Work Phone: Start: 12-23-2020 Basic metabolic pane l calcium total Dm Lynn MD Work Phone: Start: 2020 Bx/exc lymph node ne edle superficial Lyndsay Easton MD Work Phone: Start: 2020 Comprehensive metabo lic panel Tyrell Jo MD Work Phone: Start: 11-24-2020 Echo tthrc r-t 2d w/wom-mode compl spec&colr d Kathleen Guzmanmobile APPLE PACKING HEADER - ACTIVITY THERAPIST Work Phone: Start: 11-24-2020 End: 11-24-2020 Thromboplastin time partial plasma/whole blood Lyndsay Easton MD Work Phone: Start: 11-23-2020 Glucose blood reagent strip Lyndsay Easton MD Work Phone: Start: 11-23-2020 Glucose blood reagent strip Justin Jefferson DO Work Phone: Start: 11-23-2020 Glucose blood reagent strip Lyndsay Easton MD Work Phone: Start: 11-23-2020 Glucose blood reagent strip Lyndsay Easton MD Work Phone: Start: 11-23-2020 Us abdominal real ti me w/image limited Lyndsay Easton MD Work Phone: Start: 11-23-2020 BASIC METABOLIC PANE L W/ REFLEX TO MG FOR LOW K Kathleen Arreguin APPLE PACKING HEADER - ACTIVITY THERAPIST Work Phone: Start: 11-23-2020 Hemoglobin glycosylated a1c Lyndsay Easton MD Work Phone: Start: 11-23-2020 IMMATURE PLATELET FRACTION [facility] Work Phone: Start: 11-22-2020 Glucose blood reagent strip Lyndsay Easton MD Work Phone: Start: 11-22-2020 End: 11-22-2020 Glucose blood reagent strip Lyndsay siddiqui MD Work Phone: Start: 11-22-2020 Dup-scan xtr veins c omplete bilateral study Lyndsay Easton MD Work Phone: Start: 11-22-2020 Thromboplastin time partial plasma/whole blood Lyndsay Easton MD Work Phone: Start: 11-22-2020 Glucose blood reagent strip Lyndsay Easton MD Work Phone: Start: 11-22-2020 COVID-19, ANTIBODY, TOTAL Lyndsay Easton MD Work Phone: Start: 11-22-2020 End: 11-22-2020 Thromboplastin time partial plasma/whole blood Lyndsay Easton MD Work Phone: Start: 11-22-2020 Hemoglobin glycosylated a1c [facility] Work Phone: Start: 11-21-2020 Assay of troponin quantitative Antonio Ty MD Work Phone: Start: 11-21-2020 Prothrombin time Antonio Ty MD Work Phone: Start: 11-21-2020 Ct angiography chest w/contrast/noncontrast Antonio Ty MD Work Phone: Start: 11-21-2020 LACTATE, SEPSIS Antonio Ty MD Work Phone: Start: 11-21-2020 Urinalysis microscopic only Antonio Ty MD Work Phone: Start: 11-21-2020 Urnls dip stick/tabl et rgnt auto w/o microscopy Antonio Ty MD Work Phone: Start: 11-21-2020 Ct abdomen & pelvis w/contrast material Antonio Ty MD Work Phone: Start: 11-21-2020 Assay of amylase Antonio Ty MD Work Phone: Start: 11-21-2020 COMPREHENSIVE METABO LIC W/ BILI PROFILE W/ REFLEX TO MG Antonio Ty MD Work Phone: Start: 11-21-2020 COVID-, RAPID Antonio Ty MD Work Phone: Start: 11-15-2020 Radiologic exam swal low function contrast study Obed Dunn MD Work Phone: Start: 11-15-2020 COVID-, RAPID Jim Simpson MD Work Phone: Start: 10-25-2020 Gluc bld gluc mntr d ev cleared fda spec home use Justin Jc MD Work Phone: Start: 10-25-2020 Mri brain brain stem w/o contrast material Dm Lynn MD Work Phone: Start: 10-25-2020 Gluc bld gluc mntr d ev cleared fda spec home use Justin Jc MD Work Phone: Start: 10-25-2020 Ct angiography neck w/contrast/noncontrast Justin Jc MD Work Phone: Start: 10-24-2020 End: 10-24-2020 Prothrombin time Justin Jc MD Work Phone: Start: 10-24-2020 Ecg routine ecg w/le ast 12 lds w/i&r Justin Jc MD Work Phone: Start: 10-24-2020 Ct head/brain w/o co ntrast material Justin Jc Work Phone: Start: 10-23-2020 Assay of thyroid stimulating hormone tsh Obed Dunn MD Work Phone: Start: 08-27-2020 Dxa bone density matthew dy 1/> sites axial skel Obed Dunn MD Work Phone: Start: 08-01-2020 Comprehensive metabo lic panel Obed Dunn MD Work Phone: Start: 08-01-2020 Lipid panel Obed barlow MD Work Phone: Start: 08-01-2020 PATIENT FASTING? Obed Dunn MD Work Phone: Start: 04-20-2019 Bacteria identified Cx [facility] Other bilateral liga tion and division of fallopian tubes [facility] Plan of Treatment Date Care Activity Detail Author Start: 07-28-2032 Screening for malignant neoplasm of colon Colonoscopy [facility] Start: 03-24-2025 ambulatory Ambulatory Facility:[facility] Start: 01-13-2025 End: 01-13-2025 Patient encounter procedure 01/13/2025 8:40 AM EDT Office Visit [facility] [address] [place] [id number] Eduar Carpenter, DPM FACFAS [address] [place] [address] [facility] Start: 10-14-2024 End: 10-14-2024 Patient encounter procedure 10/14/2024 8:40 AM EDT Office Visit [facility] [address] [place] [phone] Eduar Carpenter, DPM FACFAS [address] [place] [address] Arrived [facility] Comment on above: Arrived Start: 06-07-2024 Urine culture [facility] Start: 06-07-2024 Bacteria identified in Urine by Culture Urine Culture [facility] Start: 01-01-2024 [facility] Start: 12-30-2023 [facility] Start: 12-29-2023 Hospital admission [facility] Start: 11-12-2023 GFR test (Diabetes, CKD 3-4, OR last GFR 15-59) GFR test (Diabetes, CKD 3-4, OR last GFR 15-59) [employer] Start: 11-12-2023 Urine screening for protein Diabetic Alb to Cr ratio (uACR) test [facility] [employer] Start: 10-01-2023 End: 10-01-2023 Patient encounter procedure 10/01/2023 11:15 AM EDT Office Visit [facility] Advisor Client [facility] [address] [facility] [address] [place] [address] Ignacia Lara, PANicoleC [address] [place] [address] [address] 6 month PVR [facility] happn [facility] Comment on above: 6 month PVR Start: 09-19-2023 GFR test (Diabetes, CKD 3-4, OR last GFR 15-59) GFR test (Diabetes, CKD 3-4, OR last GFR 15-59) [employer] Start: 07-22-2023 Screening for malignant neoplasm of colon [employer] Start: 07-01-2023 Annual Wellness Visit (AWV) Annual Wellness Visit (AWV) [facility] [employer] Start: 07-01-2023 Depression Monitoring Depression Monitoring [facility] [employer] Start: 07-01-2023 Hemoglobin A1c measurement A1C test (Diabetic or Prediabetic) [employer] Start: 05-06-2023 GFR test (Diabetes, CKD 3-4, OR last GFR 15-59) GFR test (Diabetes, CKD 3-4, OR last GFR 15-59) [employer] Start: 04-23-2023 Depression Monitoring Depression Monitoring [employer] Start: 04-06-2023 Annual Wellness Visit (Medicare Advantage) Annual Wellness Visit (Medicare Advantage) [employer] Start: 02-03-2023 Hemoglobin A1c measurement A1C test (Diabetic or Prediabetic) [employer] Start: 12-29-2022 End: 12-29-2022 Patient encounter procedure 12/29/2022 Office [place] [address] [place] [address] [facility] Start: 11-27-2022 End: 11-27-2022 Patient encounter procedure 11/27/2022 Office Visit Urology Ignacia Lara PA-C [address] [place] [address] [facility] Start: 11-26-2022 End: 11-26-2022 Patient encounter procedure 11/26/2022 Appointment Speech Therapy Saba Willams, FINE DINING SERVER [facility] Start: 11-18-2022 GFR test (Diabetes, CKD 3-4, OR last GFR 15-59) GFR test (Diabetes, CKD 3-4, OR last GFR 15-59) [facility] Start: 11-18-2022 End: 11-18-2022 Patient encounter procedure 11/18/2022 Office Visit Cardiology Oni Delarosa MD [address] [place] [address] [facility] Cloth Coverer Start: 11-17-2022 End: 11-17-2022 Patient encounter procedure 11/17/2022 Office [place] [address] [place] [address] [facility] Start: 11-14-2022 Screening for malignant neoplasm of breast Breast cancer screen [facility] Start: 11-04-2022 Influenza vaccination Flu vaccine (#1) [facility] Start: 10-30-2022 Hemoglobin A1c measurement A1C test (Diabetic or Prediabetic) [facility] Start: 10-30-2022 End: 10-30-2022 Patient encounter procedure 10/30/2022 Office Visit Urology Ignacia Lara PA-C [address] [place] [address] [facility] Start: 10-08-2022 Diabetic retinal exam Diabetic retinal exam [facility] Start: 10-08-2022 Glaucoma screening Diabetic retinal exam [facility] Start: 10-08-2022 End: 10-08-2022 Patient encounter procedure 10/08/2022 Appointment Speech Therapy Saba Willams, FINE DINING SERVER [facility] Start: 10-02-2022 End: 10-02-2022 Patient encounter procedure 10/02/2022 Office Visit Urology Ignacia Lara PA-C [address] [place] [id number] [facility] Start: 09-29-2022 End: 09-29-2022 Patient encounter procedure 09/29/2022 Office Visit Family Medicine Cesar Bo APRN - ACTIVITY THERAPIST [address] [place] [phone] [facility] [place] Start: 09-11-2022 Depression Monitoring Depression Monitoring [facility] Start: 08-28-2022 End: 08-28-2022 Patient encounter procedure 08/28/2022 Office Visit Urology Ignacia Lara, MIGDALIA [address] [place] [address] [facility] Start: 08-04-2022 End: 08-04-2022 Patient encounter procedure 08/04/2022 Office Visit Family Medicine Obed Dunn MD [address] [place] [address] [facility] Start: 07-30-2022 Diabetic foot examination Diabetic foot exam [facility] Start: 07-17-2022 Hemoglobin A1c measurement A1C test (Diabetic or Prediabetic) [facility] Start: 07-17-2022 Lipid panel Lipids [facility] Start: 05-12-2022 End: 05-12-2022 Patient encounter procedure 05/12/2022 Office Visit Oncology [place]you[place], [place] [address] [place] [address] [facility] Start: 05-08-2022 End: 05-08-2022 Patient encounter procedure 05/08/2022 Office [place] [address] [place] [address] [facility] Start: 04-30-2022 Diabetic retinal exam Diabetic retinal exam [facility] Start: 02-14-2022 End: 02-14-2022 Patient encounter procedure 02/14/2022 Appointment Physical Therapy Amanda Hobson PT [facility] Start: 02-11-2022 End: 02-11-2022 Patient encounter procedure 02/11/2022 Appointment Physical Therapy Rony Crawford ADJUNCT LATIN PROFESSOR [facility] Start: 02-06-2022 End: 02-06-2022 Patient encounter procedure 02/06/2022 Appointment Physical Therapy Rony Crawford ADJUNCT LATIN PROFESSOR [facility] Start: 02-03-2022 End: 02-03-2022 Patient encounter procedure 02/03/2022 Appointment Physical Therapy Rony Crawford ADJUNCT LATIN PROFESSOR [facility] Start: 02-03-2022 End: 02-03-2022 Patient encounter procedure 02/03/2022 Office Visit Family Medicine Obed Dunn MD [address] [place] [address] [facility] [place]: 01-30-2022 End: 01-30-2022 Patient encounter procedure 01/30/2022 Appointment Physical Therapy Rony Crawford ADJUNCT LATIN PROFESSOR [facility] Start: 01-29-2022 Annual Wellness Visit (AWV) Annual Wellness Visit (AWV) [facility] Start: 01-28-2022 Depression Monitoring Depression Monitoring [facility] Start: 01-27-2022 End: 01-27-2022 Patient encounter procedure 01/27/2022 Appointment Physical Therapy Rony Crawford ADJUNCT LATIN PROFESSOR [facility] Start: 01-23-2022 End: 01-23-2022 Patient encounter procedure 01/23/2022 Appointment Physical Therapy Amanda Hobson PT [facility] Start: 01-20-2022 End: 01-20-2022 Patient encounter procedure 01/20/2022 Appointment Physical Therapy Rony Crawford ADJUNCT LATIN PROFESSOR [facility] Start: 01-15-2022 End: 01-15-2022 Patient encounter procedure 01/15/2022 Appointment Physical Therapy Rony Crawford ADJUNCT LATIN PROFESSOR [facility] Start: 01-09-2022 End: 01-09-2022 Patient encounter procedure 01/09/2022 Appointment Physical Therapy Rony Crawford ADJUNCT LATIN PROFESSOR [facility] Start: 01-02-2022 End: 01-02-2022 Patient encounter procedure 01/02/2022 Office [place] [address] [place] [address] [facility] Start: 01-01-2022 [facility]inine [facility] Start: 01-01-2022 Potassium monitoring [facility] Start: 12-23-2021 Creatinine measurement [facility] Start: 12-23-2021 Potassium monitoring Potassium monitoring [employer] Phone: Start: 2021 Creatinine measurement Creatinine monitoring [employer] Phone: Start: 2021 Potassium monitoring Potassium monitoring [employer] Phone: Start: 12-05-2021 Influenza vaccination Flu vaccine (#1) [employer] [employer] Start: 11-25-2021 End: 11-25-2021 Patient encounter procedure [facility] Start: 11-23-2021 Creatinine measurement Creatinine monitoring [facility] [employer] Phone: Start: 11-23-2021 Hemoglobin A1c measurement A1C test (Diabetic or Prediabetic) [facility] Start: 11-23-2021 Potassium monitoring Potassium monitoring [employer] Phone: Start: 11-23-2021 Thyroid stimulating hormone measurement TSH testing [employer] Start: 11-04-2021 Influenza vaccination Flu vaccine (#1) [employer] [employer] Start: 10-30-2021 End: 10-30-2021 Patient encounter procedure 10/30/2021 Office Visit Family Medicine Obed Dunn MD [address] [place] [address] [facility] [place] Start: 10-23-2021 Diabetic microalbuminuria test Diabetic [facility]albuminuria test [facility] Start: 10-23-2021 Urine screening for protein [facility] Start: 10-10-2021 End: 10-10-2021 Patient encounter procedure 10/10/2021 Office Visit Gastroenterology Violetta Sheffield MD [address] [facility] [address] [place] [address] [id number] [facility] Start: 08-22-2021 End: 08-22-2021 Patient encounter procedure 08/22/2021 Office [place] [address] [place], [place] [id number] [facility] Start: 08-19-2021 End: 08-19-2021 Patient encounter procedure 08/19/2021 Office Visit General Surgery Petey Linda MD [address] [phone] [facility] [place] Start: 08-01-2021 Creatinine measurement Creatinine monitoring [employer] Work Phone: Start: 08-01-2021 Hemoglobin A1c measurement A1C test (Diabetic or Prediabetic) [employer] Phone: Start: 08-01-2021 Lipid panel [facility] Start: 08-01-2021 Potassium monitoring Potassium monitoring [facility] Work Phone: Start: 07-26-2021 Diabetic foot examination Diabetic foot exam [facility] Start: 07-26-2021 Pneumococcal 65+ years Vaccine (2 - PCV) Pneumococcal 65+ years Vaccine (2 - PCV) [facility] Start: 05-29-2021 End: 05-29-2021 Patient encounter procedure [facility] Start: 04-30-2021 End: 04-30-2021 Patient encounter procedure [facility] Start: 02-20-2021 End: 02-20-2021 Patient encounter procedure 02/20/2021 Appointment Physical Therapy Rony Crawford ADJUNCT LATIN PROFESSOR [facility] Start: 02-18-2021 End: 02-18-2021 Patient encounter procedure 02/18/2021 Appointment Physical Therapy Rony Crawford ADJUNCT LATIN PROFESSOR [facility] Start: 02-06-2021 End: 02-06-2021 Patient encounter procedure 02/06/2021 Appointment Physical Therapy Rony Crawford ADJUNCT LATIN PROFESSOR [facility] Start: 02-05-2021 End: 02-05-2021 Patient encounter procedure 02/05/2021 Office Visit Neurology Regulo Moreland MD [address] [place] [address], [address] [address] [facility] Start: 02-04-2021 End: 02-04-2021 Patient encounter procedure 02/04/2021 Appointment Physical Therapy Rony Crawford ADJUNCT LATIN PROFESSOR [facility] Start: 01-31-2021 End: 01-31-2021 Patient encounter procedure 01/31/2021 Appointment Physical Therapy Rony Crawford ADJUNCT LATIN PROFESSOR [facility] Start: 01-28-2021 End: 01-28-2021 Patient encounter procedure 01/28/2021 Appointment Physical Therapy Rony Crawford ADJUNCT LATIN PROFESSOR [facility] Start: 01-28-2021 End: 01-28-2021 Patient encounter procedure 01/28/2021 Office Visit Family Medicine Obed Dunn MD [address] [place] [address] [facility] Start: 01-24-2021 End: 01-24-2021 Patient encounter procedure 01/24/2021 Appointment Physical Therapy Amanda Hobson, PT [facility] Start: 01-21-2021 End: 01-21-2021 Patient encounter procedure 01/21/2021 Appointment Physical Therapy Rony Crawford, ADJUNCT LATIN PROFESSOR [facility] Start: 01-17-2021 End: 01-17-2021 Patient encounter procedure 01/17/2021 Appointment Physical Therapy Amanda Hobson, PT [facility] Start: 01-14-2021 End: 01-14-2021 Patient encounter procedure 01/14/2021 Appointment Physical Therapy Rony Crawford, ADJUNCT LATIN PROFESSOR [facility] Start: 01-01-2021 End: 01-01-2021 Patient encounter procedure 01/01/2021 Office Visit Oncology Nicole Hassan MD [address] [place] [address] [facility] Start: 12-05-2020 Influenza vaccination [employer] Phone: Start: 10-23-2020 End: 10-23-2020 Patient encounter procedure 10/23/2020 Office Visit Family Medicine Obed Dunn MD [address] [place] [address] [phone] [facility] Start: 07-26-2020 Annual Wellness Visit (AWV) Annual Wellness Visit (AWV) [employer] Phone: Start: 2012 Respiratory Syncytial Virus (RSV) or age 60 yrs+ (1 - 1-dose 60+ series) Respiratory Syncytial Virus (RSV) or age 60 yrs+ (1 - 1-dose 60+ series) [employer] Start: 12-20-2007 Screening for osteoporosis DEXA (modify frequency per FRAX score) [employer] Phone: Start: 2002 Screening for malignant neoplasm of breast Breast cancer screen [employer] Phone: Start: 2002 Screening for malignant neoplasm of colon Colon cancer screen colonoscopy [employer] Phone: Start: 2002 Shingles Vaccine (1 of 2) Shingles Vaccine (1 of 2) [employer] Start: 1997 Screening for malignant neoplasm of colon [employer] Start: 12-20-1971 DTaP/Tdap/Td vaccine (1 - Tdap) DTaP/Tdap/Td vaccine (1 - Tdap) [employer] Start: 1970 Diabetic microalbuminuria test Diabetic microalbuminuria test [employer] Phone: Start: 1970 Hepatitis C screening Hepatitis C screen [employer] Start: 1968 COVID-19 Vaccine (1) COVID-19 Vaccine (1) [employer] Phone: Start: 1964 COVID-19 Vaccine (1) COVID-19 Vaccine (1) [employer] Start: 1962 Diabetic retinal exam Diabetic retinal exam [employer] Start: 1957 COVID-19 Vaccine (1) COVID-19 Vaccine (1) [employer] Start: 06-18-1953 COVID-19 Vaccine (#1) COVID-19 Vaccine (#1) [employer] Start: 1952 Hepatitis C screening Hepatitis C screen [employer] End: 11-25-2020 aPTT in Blood by Coagulation assay APTT Lab Routine Tomorrow AM for 1 Occurrences starting 11/25/2020 until 11/25/2020 [employer] Phone: Comment on above: Tomorrow AM for 1 Occurrences starting 0 11/25/2020 until 11/25/2020 End: 09-18-2022 Cardiac Stress Test- W Pharm Cardiac Stress Test- W Pharm Cardiac Services Routine One Time for 1 Occurrences starting 09/18/2022 until 09/18/2022 [employer] Comment on above: One Time for 1 Occurrences starting 09/04 until 09/18/2022 End: 11-23-2020 Cardiolipin Ab IgG, IgM, IgA Cardiolipin Ab IgG, IgM, IgA Lab Routine Once for 1 Occurrences starting 11/23/2020 until 11/23/2020 [employer] Phone: Comment on above: Once for 1 Occurrences starting 11/24/19 until 11/23/2020 Cardiolipin Ab IgG, IgM, IgA Cardiolipin Ab IgG, IgM, IgA Lab Routine 11/23/2020 6:37 AM EDT [employer] Phone: CBC panel - Blood by Automated count CBC Lab Routine Every Other Day until discontinued starting 11/23/2020 [employer] Phone: Comment on above: Every Other Day until discontinued start ing 11/23/2020 End: 11-21-2020 Culture, Blood 1 Culture, Blood 1 Microbiology STAT One Time for 1 Occurrences starting 11/21/2020 until 11/21/2020 [employer] Phone: Comment on above: One Time for 1 Occurrences starting 11/04 until 11/21/2020 Culture, Blood 1 Culture, Blood 1 Microbiology STAT 11/21/2020 4:46 PM EDT [employer] Phone: End: 11-21-2020 Culture, Blood 2 Culture, Blood 2 Microbiology STAT One Time for 1 Occurrences starting 11/21/2020 until 11/21/2020 [employer] Phone: Comment on above: One Time for 1 Occurrences starting 11/04 until 11/21/2020 Culture, Blood 2 Culture, Blood 2 Microbiology Stat [employer] Label print 11/21/2020 4:52 PM EDT [employer] Phone: End: 11-21-2020 Culture, Urine Culture, Urine Microbiology Routine Once for 1 Occurrences starting 11/21/2020 until 11/21/2020 [employer] Phone: Comment on above: Once for 1 Occurrences starting 11/22/19 until 11/21/2020 Culture, Urine [employer] Phone: End: 12-23-2020 Culture, Urine Culture, Urine Microbiology Routine Once for 1 Occurrences starting 12/23/2020 until 12/23/2020 [employer] Phone: Comment on above: Once for 1 Occurrences starting 12/24/19 until 12/23/2020 End: 05-07-2022 Culture, Urine [facility] Phone: Comment on above: 1 Occurrences starting 05/07/2022 until 05/07/2022 End: 06-30-2022 Culture, Urine [facility] Phone: Comment on above: 1 Occurrences starting 06/30/2022 until 06/30/2022 End: 08-12-2022 Culture, Urine [facility] [employer] Comment on above: Once for 1 Occurrences starting 08/13/19 until 08/12/2022 End: 11-23-2020 Factor 5 Leiden Factor 5 Leiden Lab Routine Tomorrow AM for 1 Occurrences starting 11/23/2020 until 11/23/2020 [employer] Phone: Comment on above: Tomorrow AM for 1 Occurrences starting 0 11/23/2020 until 11/23/2020 Factor 5 Leiden Factor 5 Leiden Lab Routine 11/23/2020 6:37 AM EDT [employer] Phone: End: 2020 Flow cytometry leukemia/lymphoma nodes or fluids Flow cytometry leukemia/lymphoma nodes or fluids Lab Routine Once for 1 Occurrences starting 2020 until 2020 [employer] Phone: Comment on above: Once for 1 Occurrences starting 12/20/19 until 2020 Flow cytometry leukemia/lymphoma nodes or fluids Flow cytometry leukemia/lymphoma nodes or fluids Lab Routine 2020 11:45 AM EDT [employer] Phone: Glucose [Mass/volume ] in Serum or Plasma [employer] Phone: Comment on above: As Needed until discontinued starting 4X Daily (AC & HS) u ntil discontinued starting 11/22/2020 Glucose [Mass/volume ] in Serum or Plasma [employer] Comment on above: 4X Daily (AC & HS) until discontinued st arting 09/17/2022 As Needed until disc ontinued starting 09/17/2022 End: 11-22-2020 Initiate RT Protocol Initiate RT Protocol Respiratory Care Routine Continuous until discontinued starting 11/22/2020 [employer] Phone: Comment on above: Continuous until discontinued starting 0 11/22/2020 Intermittent pulse oximetry Pulse Oximetry Spot Check Respiratory Care Routine As Needed until discontinued starting 11/22/2020 [employer] Phone: Comment on above: As Needed until discontinued starting End: 11-23-2020 IR BIOPSY LYMPH NODE SUPERFICIAL IR BIOPSY LYMPH NODE SUPERFICIAL Imaging Routine Once for 1 Occurrences starting 11/23/2020 until 11/23/2020 [employer] Phone: Comment on above: Once for 1 Occurrences starting 11/24/19 21 until 11/23/2020 Nasal Cannula Oxygen Nasal Cannu la Oxygen Respiratory Care Routine Daily until discontinued starting 11/22/2020 [employer] Phone: Comment on above: Daily until discontinued starting 2020 End: 09-18-2022 Nasal Cannula Oxygen Nasal Cannula Oxygen Respiratory Care Routine As Needed until discontinued starting 09/18/2022 [employer] Comment on above: As Needed until discontinued starting End: 09-17-2022 Osmolality of Serum or Plasma [employer] Comment on above: One Time for 1 Occurrences starting 09/04 until 09/17/2022 End: 09-17-2022 Osmolality, Urine [employer] Comment on above: One Time for 1 Occurrences starting 09/04 until 09/17/2022 Oxygen therapy [Mini mum Data Set] Initiate Oxygen Therapy Protocol Respiratory Care Routine Daily until discontinued starting 11/22/2020 [employer] Phone: Comment on above: Daily until discontinued starting 2020 Oxygen therapy [Mini mum Data Set] Initiate Oxygen Therapy Protocol Respiratory Care Routine As Needed until discontinued starting 09/17/2022 [employer] Comment on above: As Needed until discontinued starting Patient Education Depression, Ad ult (DC) [facility] DC Instructions Know your Meds [facility] Work Phone: Patient referral [facility] Work Phone: Renal function 1999 panel - Serum or Plasma [facility] Renal function 1999 panel - Serum or Plasma [facility] Respiratory care evaluation only Respiratory care evaluation only Respiratory Care Routine As Needed until discontinued starting 11/22/2020 [employer] Work Phone: Comment on above: As Needed until discontinued starting End: 12-20-2020 SURGICAL PATHOLOGY REPORT SURGICAL PATHOLOGY REPORT Lab Routine Once for 1 Occurrences starting 12/20/2020 until 12/20/2020 [employer] Work Phone: Comment on above: Once for 1 Occurrences starting 12/21/19 21 until 12/20/2020 [facility] Immunizations Immunization Date Immunization Notes Care Provider [facility] 01-12-2024 influenza, high dose seasonal, preservative-free; Translations: [Fluzone High Dose Vaccine] Loreta Casillas [facility] 03-24-2023 Pneumococcal conjuga te PCV20, polysaccharide [id number] conjugate, adjuvant, PF Marvin Husain [facility] 12-23-2022 influenza, high dose seasonal, preservative-free Marvin Husain [facility] 02-03-2022 influenza virus vaccine, unspecified formulation Marvin Husain [facility] Comment on above: Result Comment: 2022: EXTERNAL ADMIN: PT RPT 02-03-2022 Influenza, FLUAD, (a ge 65 y+), Adjuvanted, 0.5mL Rony Crawford ADJUNCT LATIN PROFESSOR [employer] 01-28-2021 influenza virus vaccine, unspecified formulation [facility] Comment [facility] above: Result Comment: 2022: VIS DATE: 11/09/2020 01-28-2021 Influenza, Quadv, adjuvanted, 65 yrs +, IM, PF (Fluad) Rony Crawford [employer] Work Phone: 07-26-2020 pneumococcal polysaccharide vaccine, 23 valent Obed Dunn MD Work Phone: [employer] Work Phone: Comment on above: Result Comment: 2022: VIS DATE: 02/02/2019 01-02-2016 influenza virus vaccine, unspecified formulation Marvin Husain [facility] 01-08-2015 influenza virus vaccine, unspecified formulation Rony Crawford [facility] [employer] Work Phone: 01-08-2015 influenza, injectabl e, quadrivalent, preservative free PA-C Marvin Husain Work Phone: [facility] 01-08-2015 influenza, injectabl e, quadrivalent, contains preservative Timothy Chidi Other [facility] [employer] Other 03-08-2014 influenza, seasonal, injectable, preservative free Timothy Chidi Other [facility] 03-08-2014 influenza virus vaccine, unspecified formulation Rony Crawford ADJUNCT LATIN PROFESSOR [employer] Phone: Payers Date Payer Category Payer Medicare [id number] 2024 Medicare (Managed Care) [employer] [id number] 2023 Medicare [id number] 2023 Unknown [id number] 2023 Self-pay [id number] 2020 Unknown [id number] 1.2.840.158576.1.13.239. 2.7.3.865145.315 2017 Unknown 1952 Unknown [id number] 2.16.840.1.668857.3.579. 2.355 1952 Unknown [id number] 2.16.840.1.257857.3.579. 2.175 1952 Unknown [id number] 2.16.840.1.833464.3.579. 2.173 1952 Unknown [id number] 2.16.840.1.117387.3.579. 2.173 1952 Unknown [id number] 2.16.840.1.215797.3.579. 2.174 1952 Unknown [id number] 2.16.840.1.069468.3.579. 2.174 1952 Unknown [id number] 2.16.840.1.726953.3.579. 2.174 1952 Unknown [id number] 2.16.840.1.574300.3.579. 2.174 1952 Unknown [id number] 2.16.840.1.155637.3.579. 2.174 1952 Unknown [id number] 2.16.840.1.476394.3.579. 2.174 1952 Unknown [id number] 2.16.840.1.699931.3.579. 2.174 1952 Unknown [id number] 2.16.840.1.783987.3.579. 2.174 1952 Unknown [id number] 2.16.840.1.820569.3.579. 2.174 1952 Unknown [id number] 2.16.840.1.384984.3.579. 2.72 1952 Unknown [id number] 2.16.840.1.182363.3.579. 2. 1952 Unknown [id number] 2.16.840.1.627181.3.579. 2. 1952 Unknown [id number] 2.16.840.1.439116.3.579. 2. 1952 Unknown [id number] 2.16.840.1.986967.3.579. 2. 1952 Unknown [id number] 2.16.840.1.342663.3.579. 2.72 1952 Unknown [id number] 2.16.840.1.252013.3.579. 2.72 1952 Unknown [id number] 2.16.840.1.671881.3.579. 2. 1952 Unknown [id number] 2.16.840.1.567806.3.579. 2. 1952 Unknown [id number] 2.16.840.1.142895.3.579. 2. 1952 Unknown [id number] 2.16.840.1.691894.3.579. 2.72 1952 Unknown [id number] 2.16.840.1.903338.3.579. 2.727 1952 Unknown [id number] 2.16.840.1.251986.3.579. 2. 1952 Unknown [id number] 2.16.840.1.745853.3.579. 2. 1952 Unknown [id number] 2.16.840.1.566645.3.579. 2. 1952 Unknown [id number] 2.16.840.1.765917.3.579. 2. 1952 Unknown [id number] 2.16.840.1.194222.3.579. 2. 1952 Unknown [id number] 2.16.840.1.938150.3.579. 2. 1952 Unknown [id number] 2.16.840.1.094539.3.579. 2. 1952 Unknown [id number] 2.16.840.1.069408.3.579. 2. 1952 Unknown [id number] 2.16.840.1.925223.3.579. 2 1952 Unknown [id number] 2.16.840.1.980936.3.579. 2. 1952 Unknown [id number] 2.16.840.1.593926.3.579. 2. 1952 Unknown [id number] 2.16.840.1.817684.3.579. 2.1258 1952 Unknown [id number] 2.16.840.1.562907.3.579. 2.1258 1952 Unknown [id number] 2.16.840.1.487450.3.579. 2. 1952 Unknown [id number] 2.16.840.1.749897.3.579. 2.72 1952 Unknown [id number] 2.16.840.1.661170.3.579. 2. 1952 Unknown [id number] 2.16.840.1.832068.3.579. 2. 1952 Unknown [id number] 2.16.840.1.598530.3.579. 2. 1952 Unknown [id number] 2.16.840.1.432325.3.579. 2. 1952 Unknown [id number] 2.16.840.1.819974.3.579. 2. 1952 Unknown [id number] 2.16.840.1.720263.3.579. 2 1952 Unknown [id number] 2.16.840.1.496140.3.579. 2 1952 Unknown [id number] 2.16.840.1.518718.3.579. 2 1952 Unknown [id number] 2.16.840.1.016284.3.579. 2 1952 Unknown [id number] 2.16.840.1.475238.3.579. 2 1952 Unknown [id number] 2.16.840.1.360370.3.579. 2 1952 Unknown [id number] 2.16.840.1.356588.3.579. 2. 1952 Unknown [id number] 2.16.840.1.793840.3.579. 2 1952 Unknown [id number] 2.16.840.1.564046.3.579. 2. 1952 Unknown [id number] 2.16.840.1.918200.3.579. 2 1952 Unknown [id number] 2.16.840.1.493824.3.579. 2.727 1952 Unknown [id number] 2.16.840.1.896854.3.579. 2.727 1952 Unknown [id number] 2.16.840.1.365970.3.579. 2.727 Medicare [id number] Unknown [id number] Unknown [id number] 2.16.840.1.531963.19 Unknown [id number] 2.16.840.1.618986.3.579. 2.531 Unknown [id number] 2.16.840.1.274726.3.579. 2.531 Unknown [id number] 2.16.840.1.729763.3.579. 2.531 Unknown [id number] 2.16.840.1.683670.3.579. 2.531 Unknown [id number] 2.16.840.1.049747.3.579. 2.531 Unknown [id number] 2.16.840.1.356270.3.579. 2.531 Social History Date Type Detail Facility Start: 08-24-2017 End: 11-22-2024 Tobacco smoking status NHIS Never smoked tobacco (finding) [facility] Comment on above: Denies use. Start: 1950 Sex Assigned At Female F [facility] Start: 07-26-2020 End: 06-17-2024 Tobacco use and exposure Never used [employer] Start: 07-26-2020 End: 09-29-2023 Alcohol intake Lifetime non-drinker (finding) [employer] Phone: Start: 07-26-2020 End: 06-30-2022 History SDOH Alcohol Frequency 1 [employer] Phone: Start: 07-26-2020 History SDOH Alcohol Std Drinks 99 [employer] Phone: Start: 07-26-2020 End: 06-30-2022 History SDOH Financial 5 [employer] Work Phone: Start: 1950 Sex Assigned At Not on file [facility] [employer] Work Phone: Start: 09-15-2021 End: 04-30-2022 Exposure to SARS-CoV-2 (event) Not sure [employer] Start: 09-17-2022 End: 06-17-2024 Sex Assigned At [facility] Start: 06-30-2022 End: 09-17-2022 History SDOH Alcohol Std Drinks 0 [employer] Work Phone: Start: 06-30-2022 History SDOH Transpo rt Non-Med 2 [employer] Work Phone: Tobacco smoking status Never [facility] Comment on above: Denies use. Tobacco [facility] Comment on above: denies Tobacco smoking status [facility] Start: 09-17-2022 End: 06-17-2024 History of Social function [employer] How often to you hav e a drink containing alcohol? Never [employer] (I/We) worried wheth er (my/our) food would run out before (I/we) got money to buy more. Never true [employer] At any time in the past 12 months, were you homeless or living in detention [including now]? No [employer] Start: 07-18-2009 End: 02-24-2024 Sex Female (finding) [facility] Start: 06-17-2024 End: 10-14-2024 Alcoholic beverage intake [facility] NEGATED: Highlighted rowStart: KALPESH History of tobacco use Passive smoker [employer] Work Phone: Medical Equipment Procedure Code Equipment Code Equipment Original Text Equipment Identifier Dates USE WITH METER T O TEST BLOOD FOUR TIMES A DAY [id number] USE DIRECTED THREE TIMES PER DAY BEFORE MEALS [id number] Inject 3 times daily [id number] Inject 1 each in to the skin 2 times daily As needed. [id number] Start: 07-26-2020 Please dispense One Touch verio test strips to test sugars 2 times daily E11.9 [id number] Start: 09-26-2020 Please dispense One touch Lancets, to check sugars 2 times daily DX E11.9 [id number] Start: 09-26-2020 Please dispense One Touch verio test strips to test sugars 2 times daily E11.9 [id number] Start: 01-01-2021 Please dispense One Touch verio test strips to test sugars 2 times daily E11.9 [id number] Start: 05-06-2021 use to TEST BLOO D SUGAR twice a day [id number] Start: 07-30-2021 Inject once a day [id number] Start: 05-06-2021 USE ONE PEN NEED LE DAILY FOR INJECTIONS [id number] Start: 09-12-2021 use to TEST BLOO D SUGAR twice a day [id number] Start: 04-14-2022 use to TEST BLOO D SUGAR twice a day [id number] Start: 08-25-2022 Lancet #100, [facility] diabetes. 3 month supplies, Print Requisition, Compound Start: 05-05-2017 Lancet #100, [facility] gn[facility] diabetes. 3 month supplies, Print Requisition, Compound Start: 05-05-2017 Lancet #100, [facility] diabetes. 3 month supplies, Print Requisition, Compound Start: 05-05-2017 Lancet #100, [facility] gn[facility] diabetes. 3 month supplies, Print Requisition, Compound Start: 05-05-2017 Lancet #100, [facility] gn[facility] diabetes. 3 month supplies, Print Requisition, Compound Start: 05-05-2017 Lancet #100, [facility] gnoses diabetes. 3 month supplies, Print Requisition, Compound Start: 05-05-2017 Test Strips, See Instructions, 100 EA, 3, To be used daily with blood sugars checks. Dx: E11.9, [facility] #[id number], Supply, 157.4, cm, 03/24/23 9:01:00 EST, Height/Length Dosing, 93.2, kg, 03/24/23 9:01:00 EST, Weight Dosing Start: 03-31-2023 Lancet #100, [facility] gnoses diabetes. 3 month supplies, Print Requisition, Compound Start: 05-05-2017 Test Strips, See Instructions, 100 EA, 3, To be used daily with blood sugars checks. Dx: E11.9, [facility] #[id number], Supply, 157.4, cm, 03/24/23 9:01:00 EST, Height/Length Dosing, 93.2, kg, 03/24/23 9:01:00 EST, Weight Dosing Start: 03-31-2023 Lancet #100, [facility] gnoses diabetes. 3 month supplies, Print Requisition, Compound Start: 05-05-2017 Test Strips, See Instructions, 100 EA, 3, To be used daily with blood sugars checks. Dx: E11.9, [facility] #[id number], Supply, 157.4, cm, 03/24/23 9:01:00 EST, Height/Length Dosing, 93.2, kg, 03/24/23 9:01:00 EST, Weight Dosing Start: 03-31-2023 Lancet #100, [facility] gn[facility] diabetes. 3 month supplies, Print Requisition, Compound Start: 05-05-2017 Test Strips, See Instructions, 100 EA, 3, To be used daily with blood sugars checks. Dx: E11.9, [facility] #[id number], Supply, 157.4, cm, 03/24/23 9:01:00 EST, Height/Length Dosing, 93.2, kg, 03/24/23 9:01:00 EST, Weight Dosing Start: 03-31-2023 32 gauge pen nee dle 4 mm, See Instructions, 180 EA, 3, Use to administer basaglar BID, [facility] #[id number], Supply, 157, cm, 07/31/23 8:01:00 EDT, Height/Length Dosing, 93, kg, 07/31/23 8:01:00 EDT, Weight Dosing Start: 07-31-2023 Lancet #100, [facility] gn[facility] diabetes. 3 month supplies, Print Requisition, Compound Start: 05-05-2017 Test Strips, See Instructions, 100 EA, 3, To be used daily with blood sugars checks. Dx: E11.9, [facility] #[id number], Supply, 157.4, cm, 03/24/23 9:01:00 EST, Height/Length Dosing, 93.2, kg, 03/24/23 9:01:00 EST, Weight Dosing Start: 03-31-2023 32 gauge pen nee dle 4 mm, See Instructions, 180 EA, 3, Use to administer basaglar BID, [facility] #[id number], Supply, 157, cm, 07/31/23 8:01:00 EDT, Height/Length Dosing, 93, kg, 07/31/23 8:01:00 EDT, Weight Dosing Start: 07-31-2023 Lancet #100, [facility] gn[facility] diabetes. 3 month supplies, Print Requisition, Compound Start: 05-05-2017 Test Strips, See Instructions, 100 EA, 3, To be used daily with blood sugars checks. Dx: E11.9, [facility] #[id number], Supply, 157.4, cm, 03/24/23 9:01:00 EST, Height/Length Dosing, 93.2, kg, 03/24/23 9:01:00 EST, Weight Dosing Start: 03-31-2023 32 gauge pen nee dle 4 mm, See Instructions, 180 EA, 3, Use to administer basaglar BID, [facility] #[id number], Supply, 157, cm, 07/31/23 8:01:00 EDT, Height/Length Dosing, 93, kg, 07/31/23 8:01:00 EDT, Weight Dosing Start: 07-31-2023 Lancet #100, [facility] diabetes. 3 month supplies, Print Requisition, Compound Start: 05-05-2017 Test Strips, See Instructions, 100 EA, 3, To be used daily with blood sugars checks. Dx: E11.9, [facility] #[id number], Supply, 157.4, cm, 03/24/23 9:01:00 EST, Height/Length Dosing, 93.2, kg, 03/24/23 9:01:00 EST, Weight Dosing Start: 03-31-2023 32 gauge pen nee dle 4 mm, See Instructions, 180 EA, 3, Use to administer basaglar BID, [facility] #[id number], Supply, 157, cm, 07/31/23 8:01:00 EDT, Height/Length Dosing, 93, kg, 07/31/23 8:01:00 EDT, Weight Dosing Start: 07-31-2023 Lancet #100, [facility] diabetes. 3 month supplies, Print Requisition, Compound Start: 05-05-2017 Test Strips, See Instructions, 200 EA, 3, To be used to check blood sugars BID and as needed. Dx: E11.9, [facility] #[id number], Supply, 165, cm, 09/11/23 11:25:00 EDT, Height/Length Dosing, 91.5, kg, 09/11/23 11:25:00 EDT, Weight Dosing Start: 09-11-2023 32 gauge pen nee dle 4 mm, See Instructions, 180 EA, 3, Use to administer basaglar BID, [facility] #[id number], Supply, 157, cm, 07/31/23 8:01:00 EDT, Height/Length Dosing, 93, kg, 07/31/23 8:01:00 EDT, Weight Dosing Start: 07-31-2023 Lancet #100, [facility] gn[facility] diabetes. 3 month supplies, Print Requisition, Compound Start: 05-05-2017 Test Strips, See Instructions, 200 EA, 3, To be used to check blood sugars BID and as needed. Dx: E11.9, [facility] #[id number], Supply, 165, cm, 09/11/23 11:25:00 EDT, Height/Length Dosing, 91.5, kg, 09/11/23 11:25:00 EDT, Weight Dosing Start: 09-11-2023 use 1 PEN NEEDLE to inject MEDICATION subcutaneously daily [id number] Start: 12-01-2022 32 gauge pen nee dle 4 mm, See Instructions, 180 EA, 3, Use to administer basaglar BID, [facility] #[id number], Supply, 157, cm, 07/31/23 8:01:00 EDT, Height/Length Dosing, 93, kg, 07/31/23 8:01:00 EDT, Weight Dosing Start: 07-31-2023 Lancet #100, [facility] gn[facility] diabetes. 3 month supplies, Print Requisition, Compound Start: 05-05-2017 Test Strips, See Instructions, 200 EA, 3, To be used to check blood sugars BID and as needed. Dx: E11.9, [facility] #[id number], Supply, 165, cm, 09/11/23 11:25:00 EDT, Height/Length Dosing, 91.5, kg, 09/11/23 11:25:00 EDT, Weight Dosing Start: 09-11-2023 32 gauge pen nee dle 4 mm, See Instructions, 180 EA, 3, Use to administer basaglar BID, [facility] #[id number], Supply, 157, cm, 07/31/23 8:01:00 EDT, Height/Length Dosing, 93, kg, 07/31/23 8:01:00 EDT, Weight Dosing Start: 07-31-2023 Lancet #100, [facility] gn[facility] diabetes. 3 month supplies, Print Requisition, Compound Start: 05-05-2017 Test Strips, See Instructions, 200 EA, 3, To be used to check blood sugars BID and as needed. Dx: E11.9, [facility] #[id number], Supply, 165, cm, 09/11/23 11:25:00 EDT, Height/Length Dosing, 91.5, kg, 09/11/23 11:25:00 EDT, Weight Dosing Start: 09-11-2023 32 gauge pen nee dle 4 mm, See Instructions, 180 EA, 3, Use to administer basaglar BID, [facility] #[id number], Supply, 157, cm, 07/31/23 8:01:00 EDT, Height/Length Dosing, 93, kg, 07/31/23 8:01:00 EDT, Weight Dosing Start: 07-31-2023 Lancet #100, [facility] diabetes. 3 month supplies, Print Requisition, Compound Start: 05-05-2017 Test Strips, See Instructions, 200 EA, 5, To be used to check blood sugars BID and as needed. Dx: E11.9, [facility] #[id number], Supply, 165, cm, 10/02/23 8:28:00 EDT, Height/Length Dosing, 90.1, kg, 10/02/23 8:28:00 EDT, Weight Dosing Start: 10-13-2023 32 gauge pen nee dle 4 mm, See Instructions, 180 EA, 3, Use to administer basaglar BID, [facility] #[id number], Supply, 157, cm, 07/31/23 8:01:00 EDT, Height/Length Dosing, 93, kg, 07/31/23 8:01:00 EDT, Weight Dosing Start: 07-31-2023 Lancet #100, [facility] diabetes. 3 month supplies, Print Requisition, Compound Start: 05-05-2017 Test Strips, See Instructions, 200 EA, 5, To be used to check blood sugars BID and as needed. Dx: E11.9, [facility] #[id number], Supply, 165, cm, 12/01/23 8:09:00 EDT, Height/Length Dosing, 85, kg, 12/01/23 8:09:00 EDT, Weight Dosing Start: 12-01-2023 32 gauge pen nee dle 4 mm, See Instructions, 180 EA, 3, Use to administer basaglar BID, [facility] #[id number], Supply, 157, cm, 07/31/23 8:01:00 EDT, Height/Length Dosing, 93, kg, 07/31/23 8:01:00 EDT, Weight Dosing Start: 07-31-2023 Lancet #100, [facility] gn[facility] diabetes. 3 month supplies, Print Requisition, Compound Start: 05-05-2017 Test Strips, See Instructions, 200 EA, 5, To be used to check blood sugars BID and as needed. Dx: E11.9, [facility] #[id number], Supply, 165, cm, 12/01/23 8:09:00 EDT, Height/Length Dosing, 85, kg, 12/01/23 8:09:00 EDT, Weight Dosing Start: 12-01-2023 32 gauge pen nee dle 4 mm, See Instructions, 180 EA, 3, Use to administer basaglar BID, [facility] #[id number], Supply, 157, cm, 07/31/23 8:01:00 EDT, Height/Length Dosing, 93, kg, 07/31/23 8:01:00 EDT, Weight Dosing Start: 07-31-2023 Lancet #100, [facility] diabetes. 3 month supplies, Print Requisition, Compound Start: 05-05-2017 lancets, See Instructions, 300 lancet(s), 3, Diabetes check BID, [facility] #[id number], Supply, 165, cm, 12/01/23 8:09:00 EDT, Height/Length Dosing, 85, kg, 12/01/23 8:09:00 EDT, Weight Dosing Start: 12-03-2023 Test Strips, See Instructions, 200 EA, 5, To be used to check blood sugars BID and as needed. Dx: E11.9, [facility] #[id number], Supply, 165, cm, 12/01/23 8:09:00 EDT, Height/Length Dosing, 85, kg, 12/01/23 8:09:00 EDT, Weight Dosing Start: 12-01-2023 32 gauge pen nee dle 4 mm, See Instructions, 180 EA, 3, Use to administer basaglar BID, [facility] #[id number], Supply, 157, cm, 07/31/23 8:01:00 EDT, Height/Length Dosing, 93, kg, 07/31/23 8:01:00 EDT, Weight Dosing Start: 07-31-2023 Lancet #100, [facility] diabetes. 3 month supplies, Print Requisition, Compound Start: 05-05-2017 lancets, See Instructions, 300 lancet(s), 3, Diabetes check BID, [facility] #[id number], Supply, 165, cm, 12/01/23 8:09:00 EDT, Height/Length Dosing, 85, kg, 12/01/23 8:09:00 EDT, Weight Dosing Start: 12-03-2023 Test Strips, See Instructions, 200 EA, 5, To be used to check blood sugars BID and as needed. Dx: E11.9, [facility] #[id number], Supply, 165, cm, 12/01/23 8:09:00 EDT, Height/Length Dosing, 85, kg, 12/01/23 8:09:00 EDT, Weight Dosing Start: 12-01-2023 32 gauge pen nee dle 4 mm, See Instructions, 180 EA, 3, Use to administer basaglar BID, [facility] #[id number], Supply, 157, cm, 07/31/23 8:01:00 EDT, Height/Length Dosing, 93, kg, 07/31/23 8:01:00 EDT, Weight Dosing Start: 07-31-2023 Lancet #100, [facility] diabetes. 3 month supplies, Print Requisition, Compound Start: 05-05-2017 lancets, See Instructions, 300 lancet(s), 3, Diabetes check BID, [facility] #[id number], Supply, 165, cm, 12/01/23 8:09:00 EDT, Height/Length Dosing, 85, kg, 12/01/23 8:09:00 EDT, Weight Dosing Start: 12-03-2023 Test Strips, See Instructions, 200 EA, 5, To be used to check blood sugars BID and as needed. Dx: E11.9, [facility] #[id number], Supply, 165, cm, 12/01/23 8:09:00 EDT, Height/Length Dosing, 85, kg, 12/01/23 8:09:00 EDT, Weight Dosing Start: 12-01-2023 32 gauge pen nee dle 4 mm, See Instructions, 180 EA, 3, Use to administer basaglar BID, [facility] #[id number], Supply, 157, cm, 07/31/23 8:01:00 EDT, Height/Length Dosing, 93, kg, 07/31/23 8:01:00 EDT, Weight Dosing Start: 07-31-2023 Lancet #100, [facility] diabetes. 3 month supplies, Print Requisition, Compound Start: 05-05-2017 lancets, See Instructions, 300 lancet(s), 3, Diabetes check BID, [facility] #[id number], Supply, 165, cm, 12/01/23 8:09:00 EDT, Height/Length Dosing, 85, kg, 12/01/23 8:09:00 EDT, Weight Dosing Start: 12-03-2023 Test Strips, See Instructions, 200 EA, 5, To be used to check blood sugars BID and as needed. Dx: E11.9, [facility] #[id number], Supply, 165, cm, 12/01/23 8:09:00 EDT, Height/Length Dosing, 85, kg, 12/01/23 8:09:00 EDT, Weight Dosing Start: 12-01-2023 32 gauge pen nee dle 4 mm, See Instructions, 180 EA, 3, Use to administer basaglar BID, [facility] #[id number], Supply, 157, cm, 07/31/23 8:01:00 EDT, Height/Length Dosing, 93, kg, 07/31/23 8:01:00 EDT, Weight Dosing Start: 07-31-2023 Lancet #100, [facility] diabetes. 3 month supplies, Print Requisition, Compound Start: 05-05-2017 lancets, See Instructions, 300 lancet(s), 3, Diabetes check BID, [facility] #[id number], Supply, 165, cm, 12/01/23 8:09:00 EDT, Height/Length Dosing, 85, kg, 12/01/23 8:09:00 EDT, Weight Dosing Start: 12-03-2023 Test Strips, See Instructions, 200 EA, 5, To be used to check blood sugars BID and as needed. Dx: E11.9, [facility] #[id number], Supply, 165, cm, 12/01/23 8:09:00 EDT, Height/Length Dosing, 85, kg, 12/01/23 8:09:00 EDT, Weight Dosing Start: 12-01-2023 32 gauge pen nee dle 4 mm, See Instructions, 180 EA, 3, Use to administer basaglar BID, [facility] #[id number], Supply, 157, cm, 07/31/23 8:01:00 EDT, Height/Length Dosing, 93, kg, 07/31/23 8:01:00 EDT, Weight Dosing Start: 07-31-2023 Lancet #100, [facility] diabetes. 3 month supplies, Print Requisition, Compound Start: 05-05-2017 lancets, See Instructions, 300 lancet(s), 3, Diabetes check BID, [facility] #[id number], Supply, 165, cm, 12/01/23 8:09:00 EDT, Height/Length Dosing, 85, kg, 12/01/23 8:09:00 EDT, Weight Dosing Start: 12-03-2023 Test Strips, See Instructions, 200 EA, 5, To be used to check blood sugars BID and as needed. Dx: E11.9, [facility] #[id number], Supply, 165, cm, 12/01/23 8:09:00 EDT, Height/Length Dosing, 85, kg, 12/01/23 8:09:00 EDT, Weight Dosing Start: 12-01-2023 32 gauge pen nee dle 4 mm, See Instructions, 180 EA, 3, Use to administer basaglar BID, [facility] #[id number], Supply, 157, cm, 07/31/23 8:01:00 EDT, Height/Length Dosing, 93, kg, 07/31/23 8:01:00 EDT, Weight Dosing Start: 07-31-2023 Lancet #100, [facility] diabetes. 3 month supplies, Print Requisition, Compound Start: 05-05-2017 lancets, See Instructions, 300 lancet(s), 3, Diabetes check BID, [id number], Supply, 152, cm, 02/02/24 9:32:00 EDT, Height/Length Dosing, 85.8, kg, 02/02/24 9:42:00 EDT, Weight Dosing Start: 02-02-2024 Test Strips, See Instructions, 200 EA, 5, To be used to check blood sugars BID and as needed. Dx: E11.9, [facility] #[id number], Supply, 165, cm, 12/01/23 8:09:00 EDT, Height/Length Dosing, 85, kg, 12/01/23 8:09:00 EDT, Weight Dosing Start: 12-01-2023 32 gauge pen nee dle 4 mm, See Instructions, 180 EA, 3, Use to administer basaglar BID, [facility] #[id number], Supply, 157, cm, 07/31/23 8:01:00 EDT, Height/Length Dosing, 93, kg, 07/31/23 8:01:00 EDT, Weight Dosing Start: 07-31-2023 Lancet #100, [facility] diabetes. 3 month supplies, Print Requisition, Compound Start: 05-05-2017 lancets, See Instructions, 300 lancet(s), 3, Diabetes check BID, [facility] #[id number], Supply, 152, cm, 02/02/24 9:32:00 EDT, Height/Length Dosing, 85.8, kg, 02/02/24 9:42:00 EDT, Weight Dosing Start: 02-02-2024 Test Strips, See Instructions, 200 EA, 5, To be used to check blood sugars BID and as needed. Dx: E11.9, [id number], Supply, 152, cm, 02/02/24 9:32:00 EDT, Height/Length Dosing, 85.8, kg, 02/02/24 9:42:00 EDT, Weight Dosing Start: 03-08-2024 32 gauge pen nee dle 4 mm, See Instructions, 180 EA, 3, Use to administer basaglar BID, [facility] #[id number], Supply, 157, cm, 07/31/23 8:01:00 EDT, Height/Length Dosing, 93, kg, 07/31/23 8:01:00 EDT, Weight Dosing Start: 07-31-2023 Lancet #100, [facility] diabetes. 3 month supplies, Print Requisition, Compound Start: 05-05-2017 lancets, See Instructions, 300 lancet(s), 3, Diabetes check BID, [id number], Supply, 152, cm, 02/02/24 9:32:00 EDT, Height/Length Dosing, 85.8, kg, 02/02/24 9:42:00 EDT, Weight Dosing Start: 02-02-2024 Test Strips, See Instructions, 200 EA, 5, To be used to check blood sugars BID and as needed. Dx: E11.9, [id number], Supply, 152, cm, 02/02/24 9:32:00 EDT, Height/Length Dosing, 85.8, kg, 02/02/24 9:42:00 EDT, Weight Dosing Start: 03-08-2024 32 gauge pen nee dle 4 mm, See Instructions, 180 EA, 3, Use to administer basaglar BID, [facility] #[id number], Supply, 157, cm, 07/31/23 8:01:00 EDT, Height/Length Dosing, 93, kg, 07/31/23 8:01:00 EDT, Weight Dosing Start: 07-31-2023 Lancet #100, [facility] diabetes. 3 month supplies, Print Requisition, Compound Start: 05-05-2017 lancets, See Instructions, 300 lancet(s), 3, Diabetes check BID, [id number], Supply, 152, cm, 02/02/24 9:32:00 EDT, Height/Length Dosing, 85.8, kg, 02/02/24 9:42:00 EDT, Weight Dosing Start: 02-02-2024 Test Strips, See Instructions, 200 EA, 5, To be used to check blood sugars BID and as needed. Dx: E11.9, [facility] #[id number], Supply, 152, cm, 02/02/24 9:32:00 EDT, Height/Length Dosing, 85.8, kg, 02/02/24 9:42:00 EDT, Weight Dosing Start: 03-08-2024 32 gauge pen nee dle 4 mm, See Instructions, 180 EA, 3, Use to administer basaglar BID, [facility] #[id number], Supply, 157, cm, 07/31/23 8:01:00 EDT, Height/Length Dosing, 93, kg, 07/31/23 8:01:00 EDT, Weight Dosing Start: 07-31-2023 Lancet #100, [facility] diabetes. 3 month supplies, Print Requisition, Compound Start: 05-05-2017 lancets, See Instructions, 300 lancet(s), 3, Diabetes check BID, [id number], Supply, 152, cm, 02/02/24 9:32:00 EDT, Height/Length Dosing, 85.8, kg, 02/02/24 9:42:00 EDT, Weight Dosing Start: 02-02-2024 Test Strips, See Instructions, 200 EA, 5, To be used to check blood sugars BID and as needed. Dx: E11.9, [facility] #[id number], Supply, 152, cm, 02/02/24 9:32:00 EDT, Height/Length Dosing, 85.8, kg, 02/02/24 9:42:00 EDT, Weight Dosing Start: 03-08-2024 32 gauge pen nee dle 4 mm, See Instructions, 180 EA, 3, Use to administer basaglar BID, [facility] #[id number], Supply, 157, cm, 07/31/23 8:01:00 EDT, Height/Length Dosing, 93, kg, 07/31/23 8:01:00 EDT, Weight Dosing Start: 07-31-2023 Lancet #100, [facility]. 3 month supplies, Print Requisition, Compound Start: 05-05-2017 lancets, See Instructions, 300 lancet(s), 3, Diabetes check BID, [id number], Supply, 152, cm, 02/02/24 9:32:00 EDT, Height/Length Dosing, 85.8, kg, 02/02/24 9:42:00 EDT, Weight Dosing Start: 02-02-2024 Test Strips, See Instructions, 200 EA, 5, To be used to check blood sugars BID and as needed. Dx: E11.9, [id number], Supply, 152, cm, 02/02/24 9:32:00 EDT, Height/Length Dosing, 85.8, kg, 02/02/24 9:42:00 EDT, Weight Dosing Start: 03-08-2024 32 gauge pen nee dle 4 mm, See Instructions, 180 EA, 3, Use to administer basaglar BID, [facility] #[id number], Supply, 157, cm, 07/31/23 8:01:00 EDT, Height/Length Dosing, 93, kg, 07/31/23 8:01:00 EDT, Weight Dosing Start: 07-31-2023 Lancet #100, [facility]. 3 month supplies, Print Requisition, Compound Start: 05-05-2017 lancets, See Instructions, 300 lancet(s), 3, Diabetes check BID, [id number], Supply, 152, cm, 02/02/24 9:32:00 EDT, Height/Length Dosing, 85.8, kg, 02/02/24 9:42:00 EDT, Weight Dosing Start: 02-02-2024 Test Strips, See Instructions, 200 EA, 5, To be used to check blood sugars BID and as needed. Dx: E11.9, [id number], Supply, 152, cm, 02/02/24 9:32:00 EDT, Height/Length Dosing, 85.8, kg, 02/02/24 9:42:00 EDT, Weight Dosing Start: 03-08-2024 32 gauge pen nee dle 4 mm, See Instructions, 180 EA, 3, Use to administer basaglar BID, [facility] #[id number], Supply, 157, cm, 07/31/23 8:01:00 EDT, Height/Length Dosing, 93, kg, 07/31/23 8:01:00 EDT, Weight Dosing Start: 07-31-2023 Lancet #100, [facility]. 3 month supplies, Print Requisition, Compound Start: 05-05-2017 lancets, See Instructions, 300 lancet(s), 3, Diabetes check BID, [id number], Supply, 152, cm, 02/02/24 9:32:00 EDT, Height/Length Dosing, 85.8, kg, 02/02/24 9:42:00 EDT, Weight Dosing Start: 02-02-2024 Test Strips, See Instructions, 200 EA, 5, To be used to check blood sugars BID and as needed. Dx: E11.9, [id number], Supply, 152, cm, 02/02/24 9:32:00 EDT, Height/Length Dosing, 85.8, kg, 02/02/24 9:42:00 EDT, Weight Dosing Start: 03-08-2024 32 gauge pen nee dle 4 mm, See Instructions, 180 EA, 3, Use to administer basaglar BID, [facility] #[id number], Supply, 157, cm, 07/31/23 8:01:00 EDT, Height/Length Dosing, 93, kg, 07/31/23 8:01:00 EDT, Weight Dosing Start: 07-31-2023 Lancet #100, [facility] diabetes. 3 month supplies, Print Requisition, Compound Start: 05-05-2017 lancets, See Instructions, 300 lancet(s), 3, Diabetes check BID, [id number], Supply, 152, cm, 02/02/24 9:32:00 EDT, Height/Length Dosing, 85.8, kg, 02/02/24 9:42:00 EDT, Weight Dosing Start: 02-02-2024 Test Strips, See Instructions, 200 EA, 5, To be used to check blood sugars BID and as needed. Dx: E11.9, [id number], Supply, 152, cm, 02/02/24 9:32:00 EDT, Height/Length Dosing, 85.8, kg, 02/02/24 9:42:00 EDT, Weight Dosing Start: 03-08-2024 32 gauge pen nee dle 4 mm, See Instructions, 180 EA, 3, Use to administer basaglar BID, [facility] #[id number], Supply, 157, cm, 07/31/23 8:01:00 EDT, Height/Length Dosing, 93, kg, 07/31/23 8:01:00 EDT, Weight Dosing Start: 07-31-2023 Lancet #100, [facility]. 3 month supplies, Print Requisition, Compound Start: 05-05-2017 lancets, See Instructions, 300 lancet(s), 3, Diabetes check BID, [id number], Supply, 152, cm, 02/02/24 9:32:00 EDT, Height/Length Dosing, 85.8, kg, 02/02/24 9:42:00 EDT, Weight Dosing Start: 02-02-2024 Test Strips, See Instructions, 200 EA, 5, To be used to check blood sugars BID and as needed. Dx: E11.9, [id number], Supply, 152, cm, 02/02/24 9:32:00 EDT, Height/Length Dosing, 85.8, kg, 02/02/24 9:42:00 EDT, Weight Dosing Start: 03-08-2024 32 gauge pen nee dle 4 mm, See Instructions, 180 EA, 3, Use to administer basaglar BID, [facility] #[id number], Supply, 157, cm, 07/31/23 8:01:00 EDT, Height/Length Dosing, 93, kg, 07/31/23 8:01:00 EDT, Weight Dosing Start: 07-31-2023 Lancet #100, [facility]. 3 month supplies, Print Requisition, Compound Start: 05-05-2017 lancets, See Instructions, 300 lancet(s), 3, Diabetes check BID, [id number], Supply, 152, cm, 02/02/24 9:32:00 EDT, Height/Length Dosing, 85.8, kg, 02/02/24 9:42:00 EDT, Weight Dosing Start: 02-02-2024 Test Strips, See Instructions, 200 EA, 5, To be used to check blood sugars BID and as needed. Dx: E11.9, [id number], Supply, 152, cm, 02/02/24 9:32:00 EDT, Height/Length Dosing, 85.8, kg, 02/02/24 9:42:00 EDT, Weight Dosing Start: 03-08-2024 Goals Date Patient Goal Desired Activity /State Functional Status Date Assessment Result Facility 05-10-2024 Functional Status N/A [facility] [place] 03-25-2024 Functional Status N/A [facility] 03-24-2024 Functional Status N/A [facility] 02-02-2024 Functional Status N/A [facility] 01-12-2024 Functional Status N/A [facility] 01-01-2024 Functional status Patient at Baseline [facility] Work Phone: 12-29-2023 Functional Status N/A [facility] 12-29-2023 Functional Status N/A [facility] 12-01-2023 Functional Status N/A [facility] 10-02-2023 Functional Status N/A [facility] 09-22-2023 Functional Status N/A [facility] 09-11-2023 Functional Status N/A [facility] 08-11-2023 Functional Status N/A [facility] 08-03-2023 Functional Status N/A [facility] 07-31-2023 Functional Status N/A [facility] 06-22-2023 Functional Status N/A [facility] 03-24-2023 Functional Status N/A [facility] Mental Status Date Assessment Result Facility 01-01-2024 Cognitive function Cognitive Sta tus Patient at Baseline [facility] Work Phone: Clinical Notes 11-22-2020 to 11-20-2024 Eduar Carpenter DPM [facility] - 10/14/2024 8:40 AM EDT Note Date & Type Note Facility 11-20-2024 Hospital Discharg e instructions Patient Education 11/20/2024 07:29:05 Type 2 Diabetes Mellitus, Self-Care, Adult Type 2 Diabetes Mellitus, Self-Care, Adult Caring for yourself after you have been diagnosed with type 2 diabetes (type 2 diabetes mellitus) means keeping your blood sugar (glucose) under control with a balance of: Nutrition. Exercise. Lifestyle changes. Medicines or insulin, if needed. Support from your team of health care providers and others. What are the risks? Having type 2 diabetes can put you at risk for other long-term (chronic) conditions, such as heart disease and kidney disease. Your health care provider may prescribe medicines to help prevent complications from diabetes. How to monitor your blood glucose Check your blood glucose every day or as often as told by your health care provider. Have your A1C (hemoglobin A1C) level checked two or more times a year, or as often as told by your health care provider. Your health care provider will set personalized treatment goals for you. Generally, the goal of treatment is to maintain the following blood glucose levels: ?Before meals: 80 130 mg/dL (4.4 7.2 mmol/L). ?After meals: below 180 mg/dL (10 mmol/L). ?A1C level: less than 7%. How to manage hyperglycemia and hypoglycemia Hyperglycemia symptoms Hyperglycemia, also called high blood glucose, occurs when blood glucose is too high. Make sure you know the early signs of hyperglycemia, such as: Increased thirst. Hunger. Feeling very tired. Needing to urinate more often than usual. Blurry vision. Hypoglycemia symptoms Hypoglycemia, also called low blood glucose, occurs with a blood glucose level at or below 70 mg/dL (3.9 mmol/L). Diabetes medicines lower your blood glucose and can cause hypoglycemia. The risk for hypoglycemia increases during or after exercise, during sleep, during illness, and when skipping meals or not eating for a long time (fasting). It is important to know the symptoms of hypoglycemia and treat it right away. Always have a 15-gram rapid-acting carbohydrate snack with you to treat low blood glucose. Family members and close friends should also know the symptoms and understand how to treat hypoglycemia, in case you are not able to treat yourself. Symptoms may include: Hunger. Anxiety. Sweating and feeling clammy. Dizziness or feeling light-headed. Sleepiness. Increased heart rate. Irritability. Tingling or numbness around the mouth, lips, or tongue. Restless sleep. Severe hypoglycemia is when your blood glucose level is at or below 54 mg/dL (3 mmol/L). Severe hypoglycemia is an emergency. Do not wait to see if the symptoms will go away. Get medical help right away. Call your local emergency services (911 in the [place] Do not drive yourself to the hospital. If you have severe hypoglycemia and you cannot eat or drink, you may need glucagon. A family member or close friend should learn how to check your blood glucose and how to give you glucagon. Ask your health care provider if you need to have an emergency glucagon kit available. Follow these instructions at home: Medicines Take prescribed insulin or diabetes medicines as told by your health care provider. Do not run out of insulin or other diabetes medicines. Plan ahead so you always have these available. If you use insulin, adjust your dosage based on your physical activity and what foods you eat. Your health care provider will tell you how to adjust your dosage. Take wtue-ihw-czfunma and prescription medicines only as told by your health care provider. Eating and drinking What you eat and drink affects your blood glucose and your insulin dosage. Making good choices helps to control your diabetes and prevent other health problems. A healthy meal plan includes eating lean proteins, complex carbohydrates, fresh fruits and vegetables, low-fat dairy products, and healthy fats. Make an appointment to see a registered dietitian to help you create an eating plan that is right for you. Make sure that you: Follow instructions from your health care provider about eating or drinking restrictions. Drink enough fluid to keep your urine pale yellow. Keep a record of the carbohydrates that you eat. Do this by reading food labels and learning the standard serving sizes of foods. Follow your sick-day plan whenever you cannot eat or drink as usual. Make this plan in advance with your health care provider. Activity Stay active. Exercise regularly, as told by your health care provider. This may include: ?Stretching and doing strength exercises, such as yoga or weight lifting, two or more times a week. ?Doing 150 minutes or more of moderate-intensity or vigorous-intensity exercise each week. This could be brisk walking, biking, or water aerobics. ?Spread out your activity over 3 or more days of the week. ?Do not go more than 2 days in a row without doing some kind of physical activity. When you start a new exercise or activity, work with your health care provider to adjust your insulin, medicines, or food intake as needed. Lifestyle Do not use any products that contain nicotine or tobacco. These products include cigarettes, chewing tobacco, and vaping devices, such as e-cigarettes. If you need help quitting, ask your health care provider. If you drink alcohol and your health care provider says that it is safe for you: ?Limit how much you have to: ?0 1 drink a day for women who are not . ?0 2 drinks a day for men. ?Know how much alcohol is in your drink. In the [place] one drink equals one 12 oz bottle of beer (355 mL), one 5 oz glass of wine (148 mL), or one 1 oz glass of hard liquor (44 mL). Learn to manage stress. If you need help with this, ask your health care provider. Take care of your body Keep your immunizations up to date. In addition to getting vaccinations as told by your health care provider, it is recommended that you get vaccinated against the following illnesses: ?The flu (influenza). Get a flu shot every year. ?Pneumonia. ?Hepatitis B. Schedule an eye exam soon after your diagnosis, and then one time every year after that. Check your skin and feet every day for cuts, bruises, redness, blisters, or sores. Schedule a foot exam with your health care provider once every year. [place] your teeth and gums two times a day, and floss one or more times a day. Visit your dentist one or more times every 6 months. Maintain a healthy weight. General instructions Share your diabetes management plan with people in your workplace, school, and household. Carry a medical alert card or wear medical alert jewelry. Keep all follow-up visits. This is important. Questions to ask your health care provider Should I meet with a certified diabetes care and education instructor? Where can I find a support group for people with diabetes? Where to find more information For help and guidance and for more information about diabetes, please visit: [place] [employer] (ADA): www.diabetes.org [place] [employer] Care and Education Specialists (ADCES): www.diabeteseducator.org International Diabetes Federation (IDF): www.idf.org Summary Caring for yourself after you have been diagnosed with type 2 diabetes (type 2 diabetes mellitus) means keeping your blood sugar (glucose) under control with a balance of nutrition, exercise, lifestyle changes, and medicine. Check your blood glucose every day, as often as told by your health care provider. Having diabetes can put you at risk for other long-term (chronic) conditions, such as heart disease and kidney disease. Your health care provider may prescribe medicines to help prevent complications from diabetes. Share your diabetes management plan with people in your workplace, school, and household. Keep all follow-up visits. This is important. This information is not intended to replace advice given to you by your health care provider. Make sure you discuss any questions you have with your health care provider. Document Revised: 08/21/2021 Document Reviewed: 08/21/2021 [employer] Patient Education 2023 [employer]. 11/20/2024 07:29:04 Hypertension, Adult Hypertension, Adult High blood pressure (hypertension) is when the force of blood pumping through the arteries is too strong. The arteries are the blood vessels that carry blood from the heart throughout the body. Hypertension forces the heart to work harder to pump blood and may cause arteries to become narrow or stiff. Untreated or uncontrolled hypertension can lead to a heart attack, heart failure, a stroke, kidney disease, and other problems. A blood pressure reading consists of a higher number over a lower number. Ideally, your blood pressure should be below 120/80. The first ( top ) number is called the systolic pressure. It is a measure of the pressure in your arteries as your heart beats. The second ( bottom ) number is called the diastolic pressure. It is a measure of the pressure in your arteries as the heart relaxes. What are the causes? The exact cause of this condition is not known. There are some conditions that result in high blood pressure. What increases the risk? Certain factors may make you more likely to develop high blood pressure. Some of these risk factors are under your control, including: Smoking. Not getting enough exercise or physical activity. Being overweight. Having too much fat, sugar, calories, or salt (sodium) in your diet. Drinking too much alcohol. Other risk factors include: Having a personal history of heart disease, diabetes, high cholesterol, or kidney disease. Stress. Having a family history of high blood pressure and high cholesterol. Having obstructive sleep apnea. Age. The risk increases with age. What are the signs or symptoms? High blood pressure may not cause symptoms. Very high blood pressure (hypertensive crisis) may cause: Headache. Fast or irregular heartbeats (palpitations). Shortness of breath. Nosebleed. Nausea and vomiting. Vision changes. Severe chest pain, dizziness, and seizures. How is this diagnosed? This condition is diagnosed by measuring your blood pressure while you are seated, with your arm resting on a flat surface, your legs uncrossed, and your feet flat on the floor. The cuff of the blood pressure monitor will be placed directly against the skin of your upper arm at the level of your heart. Blood pressure should be measured at least twice using the same arm. Certain conditions can cause a difference in blood pressure between your right and left arms. If you have a high blood pressure reading during one visit or you have normal blood pressure with other risk factors, you may be asked to: Return on a different day to have your blood pressure checked again. Monitor your blood pressure at home for 1 week or longer. If you are diagnosed with hypertension, you may have other blood or imaging tests to help your health care provider understand your overall risk for other conditions. How is this treated? This condition is treated by making healthy lifestyle changes, such as eating healthy foods, exercising more, and reducing your alcohol intake. You may be referred for counseling on a healthy diet and physical activity. Your health care provider may prescribe medicine if lifestyle changes are not enough to get your blood pressure under control and if: Your systolic blood pressure is above 130. Your diastolic blood pressure is above 80. Your personal target blood pressure may vary depending on your medical conditions, your age, and other factors. Follow these instructions at home: Eating and drinking Eat a diet that is high in fiber and potassium, and low in sodium, added sugar, and fat. An example of this eating plan is called the DASH diet. DASH stands for Dietary Approaches to Stop Hypertension. To eat this way: ?Eat plenty of fresh fruits and vegetables. Try to fill one half of your plate at each meal with fruits and vegetables. ?Eat whole grains, such as whole-wheat pasta, brown rice, or whole-grain bread. Fill about one fourth of your plate with whole grains. ?Eat or drink low-fat dairy products, such as skim milk or low-fat yogurt. ?Avoid fatty cuts of meat, processed or cured meats, and poultry with skin. Fill about one fourth of your plate with lean proteins, such as fish, chicken without skin, beans, eggs, or tofu. ?Avoid pre-made and processed foods. These tend to be higher in sodium, added sugar, and fat. Reduce your daily sodium intake. Many people with hypertension should eat less than 1,500 mg of sodium a day. Do not drink alcohol if: ?Your health care provider tells you not to drink. ?You are , may be , or are planning to become . If you drink alcohol: ?Limit how much you have to: ?0 1 drink a day for women. ?0 2 drinks a day for men. ?Know how much alcohol is in your drink. In the [place] one drink equals one 12 oz bottle of beer (355 mL), one 5 oz glass of wine (148 mL), or one 1 oz glass of hard liquor (44 mL). Lifestyle Work with your health care provider to maintain a healthy body weight or to lose weight. Ask what an ideal weight is for you. Get at least 30 minutes of exercise that causes your heart to beat faster (aerobic exercise) most days of the week. Activities may include walking, swimming, or biking. Include exercise to strengthen your muscles (resistance exercise), such as Pilates or lifting weights, as part of your weekly exercise routine. Try to do these types of exercises for 30 minutes at least 3 days a week. Do not use any products that contain nicotine or tobacco. These products include cigarettes, chewing tobacco, and vaping devices, such as e-cigarettes. If you need help quitting, ask your health care provider. Monitor your blood pressure at home as told by your health care provider. Keep all follow-up visits. This is important. Medicines Take suwj-cse-adizjdy and prescription medicines only as told by your health care provider. Follow directions carefully. Blood pressure medicines must be taken as prescribed. Do not skip doses of blood pressure medicine. Doing this puts you at risk for problems and can make the medicine less effective. Ask your health care provider about side effects or reactions to medicines that you should watch for. Contact a health care provider if you: Think you are having a reaction to a medicine you are taking. Have headaches that keep coming back (recurring). Feel dizzy. Have swelling in your ankles. Have trouble with your vision. Get help right away if you: Develop a severe headache or confusion. Have unusual weakness or numbness. Feel faint. Have severe pain in your chest or abdomen. Vomit repeatedly. Have trouble breathing. These symptoms may be an emergency. Get help right away. Call 911. Do not wait to see if the symptoms will go away. Do not drive yourself to the hospital. Summary Hypertension is when the force of blood pumping through your arteries is too strong. If this condition is not controlled, it may put you at risk for serious complications. Your personal target blood pressure may vary depending on your medical conditions, your age, and other factors. For most people, a normal blood pressure is less than 120/80. Hypertension is treated with lifestyle changes, medicines, or a combination of both. Lifestyle changes include losing weight, eating a healthy, low-sodium diet, exercising more, and limiting alcohol. This information is not intended to replace advice given to you by your health care provider. Make sure you discuss any questions you have with your health care provider. Document Revised: 01/28/2022 Document Reviewed: 01/28/2022 [employer] Patient Education 2023 [employer]. 11/20/2024 07:29:03 Chronic Kidney Disease, Adult Chronic Kidney Disease, Adult Chronic kidney disease (CKD) occurs when the kidneys are slowly and permanently damaged over a long period of time. The kidneys are a pair of organs that do many important jobs in the body, including: Removing waste and extra fluid from the blood to make urine. Making hormones that maintain the amount of fluid in tissues and blood vessels. Maintaining the right amount of fluids and chemicals in the body. A small amount of kidney damage may not cause problems, but a large amount of damage may make it hard or impossible for the kidneys to work right. Steps must be taken to slow kidney damage or to stop it from getting worse. If steps are not taken, the kidneys may stop working permanently (end-stage renal disease, or ESRD). Most of the time, CKD does not go away, but it can often be controlled. People who have CKD are usually able to live full lives. What are the causes? The most common causes of this condition are diabetes and high blood pressure (hypertension). Other causes include: Cardiovascular diseases. These affect the heart and blood vessels. Kidney diseases. These include: ?Glomerulonephritis, or inflammation of the tiny filters in the kidneys. ?Interstitial nephritis. This is swelling of the small tubes of the kidneys and of the surrounding structures. ?Polycystic kidney disease, in which clusters of fluid-filled sacs form within the kidneys. ?Renal vascular disease. This includes disorders that affect the arteries and veins of the kidneys. Diseases that affect the body's defense system (immune system). A problem with urine flow. This may be caused by: ?Kidney stones. ?Cancer. ?An enlarged prostate, in males. A kidney infection or urinary tract infection (UTI) that keeps coming back. Vasculitis. This is swelling or inflammation of the blood vessels. What increases the risk? Your chances of having kidney disease increase with age. The following factors may make you more likely to develop this condition: A family history of kidney disease or kidney failure. Kidney failure means the kidneys can no longer work right. Certain genetic diseases. Taking medicines often that are damaging to the kidneys. Being around or being in contact with toxic substances. Obesity. A history of tobacco use. What are the signs or symptoms? Symptoms of this condition include: Feeling very tired (lethargic) and having less energy. Swelling, or edema, of the face, legs, ankles, or feet. Nausea or vomiting, or loss of appetite. Confusion or trouble concentrating. Muscle twitches and cramps, especially in the legs. Dry, itchy skin. A metallic taste in the mouth. Producing less urine, or producing more urine (especially at night). Shortness of breath. Trouble sleeping. CKD may also result in not having enough red blood cells or hemoglobin in the blood (anemia) or having weak bones (bone disease). Symptoms develop slowly and may not be obvious until the kidney damage becomes severe. It is possible to have kidney disease for years without having symptoms. How is this diagnosed? This condition may be diagnosed based on: Blood tests. Urine tests. Imaging tests, such as an ultrasound or a CT scan. A kidney biopsy. This involves removing a sample of kidney tissue to be looked at under a microscope. Results from these tests will help to determine how serious the CKD is. How is this treated? There is no cure for most cases of this condition, but treatment usually relieves symptoms and prevents or slows the worsening of the disease. Treatment may include: Diet changes, which may require you to avoid alcohol and foods that are high in salt, potassium, phosphorous, and protein. Medicines. These may: ?Lower blood pressure. ?Control blood sugar (glucose). ?Relieve anemia. ?Relieve swelling. ?Protect your bones. ?Improve the balance of salts and minerals in your blood (electrolytes). Dialysis, which is a type of treatment that removes toxic waste from the body. It may be needed if you have kidney failure. Managing any other conditions that are causing your CKD or making it worse. Follow these instructions at home: Medicines Take yuol-txf-lmkzdoy and prescription medicines only as told by your health care provider. The amount of some medicines that you take may need to be changed. Do not take any new medicines unless approved by your health care provider. Many medicines can make kidney damage worse. Do not take any vitamin and mineral supplements unless approved by your health care provider. Many nutritional supplements can make kidney damage worse. Lifestyle Do not use any products that contain nicotine or tobacco, such as cigarettes, e-cigarettes, and chewing tobacco. If you need help quitting, ask your health care provider. If you drink alcohol: ?Limit how much you use to: ?0 1 drink a day for women who are not . ?0 2 drinks a day for men. ?Know how much alcohol is in your drink. In the [place] one drink equals one 12 oz bottle of beer (355 mL), one 5 oz glass of wine (148 mL), or one 1 oz glass of hard liquor (44 mL). Maintain a healthy weight. If you need help, ask your health care provider. General instructions Follow instructions from your health care provider about eating or drinking restrictions, including any prescribed diet. Track your blood pressure at home. Report changes in your blood pressure as told. If you are being treated for diabetes, track your blood glucose levels as told. Start or continue an exercise plan. Exercise at least 30 minutes a day, 5 days a week. Keep your immunizations up to date as told. Keep all follow-up visits. This is important. Where to find more information [place] [employer]: www.aakp.org National Kidney Foundation: www.kidney.org [place] [employer]: www.akfinc.org Life [employer]: www.lifeoptions.org [employer]: www.kidneyschool.org Contact a health care provider if: Your symptoms get worse. You develop new symptoms. Get help right away if: You develop symptoms of ESRD. These include: ?Headaches. ?Numbness in your hands or feet. ?Easy bruising. ?Frequent hiccups. ?Chest pain. ?Shortness of breath. ?Lack of menstrual periods, in women. You have a fever. You are producing less urine than usual. You have pain or bleeding when you urinate or when you have a bowel movement. These symptoms may represent a serious problem that is an emergency. Do not wait to see if the symptoms will go away. Get medical help right away. Call your local emergency services (911 in the [place] Do not drive yourself to the hospital. Summary Chronic kidney disease (CKD) occurs when the kidneys become damaged slowly over a long period of time. The most common causes of this condition are diabetes and high blood pressure (hypertension). There is no cure for most cases of CKD, but treatment usually relieves symptoms and prevents or slows the worsening of the disease. Treatment may include a combination of lifestyle changes, medicines, and dialysis. This information is not intended to replace advice given to you by your health care provider. Make sure you discuss any questions you have with your health care provider. Document Revised: 06/27/2020 Document Reviewed: 06/27/2020 [employer] Patient Education 2023 [employer]. Follow Up Care 07/25/2024 09:48:22 With:Lupillo MORA, [employer]-Loreta NAVA Address: [address] [place] [phone] When:Within 4 Month(s) Comments:chronic care [facility] [place] 11-20-2024 Note Patient Education Cardiovascular Hypertension, Adult High blood pressure (hypertension) is when the force of blood pumping through the arteries is too strong. The arteries are the blood vessels that carry blood from the heart throughout the body. Hypertension forces the heart to work harder to pump blood and may cause arteries to become narrow or stiff. Untreated or uncontrolled hypertension can lead to a heart attack, heart failure, a stroke, kidney disease, and other problems. A blood pressure reading consists of a higher number over a lower number. Ideally, your blood pressure should be below 120/80. The first ( top ) number is called the systolic pressure. It is a measure of the pressure in your arteries as your heart beats. The second ( bottom ) number is called the diastolic pressure. It is a measure of the pressure in your arteries as the heart relaxes. What are the causes? The exact cause of this condition is not known. There are some conditions that result in high blood pressure. What increases the risk? Certain factors may make you more likely to develop high blood pressure. Some of these risk factors are under your control, including: ??? Smoking. ??? Not getting enough exercise or physical activity. ??? Being overweight. ??? Having too much fat, sugar, calories, or salt (sodium) in your diet. ??? Drinking too much alcohol. Other risk factors include: ??? Having a personal history of heart disease, diabetes, high cholesterol, or kidney disease. ??? Stress. ??? Having a family history of high blood pressure and high cholesterol. ??? Having obstructive sleep apnea. ??? Age. The risk increases with age. What are the signs or symptoms? High blood pressure may not cause symptoms. Very high blood pressure (hypertensive crisis) may cause: ??? Headache. ??? Fast or irregular heartbeats (palpitations). ??? Shortness of breath. ??? Nosebleed. ??? Nausea and vomiting. ??? Vision changes. ??? Severe chest pain, dizziness, and seizures. How is this diagnosed? This condition is diagnosed by measuring your blood pressure while you are seated, with your arm resting on a flat surface, your legs uncrossed, and your feet flat on the floor. The cuff of the blood pressure monitor will be placed directly against the skin of your upper arm at the level of your heart. Blood pressure should be measured at least twice using the same arm. Certain conditions can cause a difference in blood pressure between your right and left arms. If you have a high blood pressure reading during one visit or you have normal blood pressure with other risk factors, you may be asked to: ??? Return on a different day to have your blood pressure checked again. ??? Monitor your blood pressure at home for 1 week or longer. If you are diagnosed with hypertension, you may have other blood or imaging tests to help your health care provider understand your overall risk for other conditions. How is this treated? This condition is treated by making healthy lifestyle changes, such as eating healthy foods, exercising more, and reducing your alcohol intake. You may be referred for counseling on a healthy diet and physical activity. Your health care provider may prescribe medicine if lifestyle changes are not enough to get your blood pressure under control and if: ??? Your systolic blood pressure is above 130. ??? Your diastolic blood pressure is above 80. Your personal target blood pressure may vary depending on your medical conditions, your age, and other factors. Follow these instructions at home: Eating and drinking ??? Eat a diet that is high in fiber and potassium, and low in sodium, added sugar, and fat. An example of this eating plan is called the DASH diet. DASH stands for Dietary Approaches to Stop Hypertension. To eat this way: ? Eat plenty of fresh fruits and vegetables. Try to fill one half of your plate at each meal with fruits and vegetables. ? Eat whole grains, such as whole-wheat pasta, brown rice, or whole-grain bread. Fill about one fourth of your plate with whole grains. ? Eat or drink low-fat dairy products, such as skim milk or low-fat yogurt. ? Avoid fatty cuts of meat, processed or cured meats, and poultry with skin. Fill about one fourth of your plate with lean proteins, such as fish, chicken without skin, beans, eggs, or tofu. ? Avoid pre-made and processed foods. These tend to be higher in sodium, added sugar, and fat. ??? Reduce your daily sodium intake. Many people with hypertension should eat less than 1,500 mg of sodium a day. ??? Do not drink alcohol if: ? Your health care provider tells you not to drink. ? You are , may be , or are planning to become . ??? If you drink alcohol: ? Limit how much you have to: ? 0?1 drink a day for women. ? 0?2 drinks a day for men. ? Know how much alcohol is in your drink. In the [place] one drink equals one 12 oz bottle (more content not included)... [facility] 10-14-2024 History of Presen t illness Narrative Images from the original note were not included. patient: Sabina Canela : 1950 PCP: Justin Doyle MD SUBJECTIVE This is a 73 y.o. female diabetic patient presents today chief complaint of painful elongated nails digits 1 through 10 the cause marked limitation in ambulation due to pain and pressure from shoe gear. The patient states he has been attempting to control his blood glucose levels with regular visits to his primary care physician. Allergies: Allergies Allergen Reactions Amoxicillin Anaphylaxis Past Medical History: Active Ambulatory Problems Diagnosis Date Noted No Active Ambulatory Problems Resolved Ambulatory Problems Diagnosis Date Noted No Resolved Ambulatory Problems Past Medical History: Diagnosis Date Diabetes mellitus (HCC) Medications: Current Outpatient Medications: amLODIPine (Norvasc) 5 MG tablet, Take 5 mg by mouth Daily, Disp: , Rfl: ARIPiprazole (Abilify) 5 MG tablet, Take 5 mg by mouth Daily, Disp: , Rfl: atorvastatin (Lipitor) 40 MG tablet, Take 40 mg by mouth Daily, Disp: , Rfl: Basaglar KwikPen 100 UNIT/ML pen, INJECT 30 UNITS UNDER THE SKIN EVERY MORNING WITH FOOD, 20 UNITS IN THE EVENING, Disp: , Rfl: escitalopram (Lexapro) 10 MG tablet, Take 10 mg by mouth Daily, Disp: , Rfl: folic acid (Folvite) 1 MG tablet, Take 1,000 mcg by mouth Daily, Disp: , Rfl: glimepiride (Amaryl) 4 MG tablet, Take 4 mg by mouth Daily, Disp: , Rfl: levothyroxine (Synthroid, Levoxyl) 88 MCG tablet, Take 88 mcg by mouth in the morning. Take on an empty stomach.., Disp: , Rfl: memantine (Namenda) 10 MG tablet, Take 10 mg by mouth in the morning and 10 mg before bedtime., Disp: , Rfl: Myrbetriq 50 MG 24 hr tablet, , Disp: , Rfl: propranolol LA (Inderal LA) 120 MG 24 hr capsule, Take 120 mg by mouth Daily, Disp: , Rfl: rOPINIRole (Requip) 0.25 MG tablet, Take 0.25 mg by mouth Daily, Disp: , Rfl: Rybelsus 7 MG tablet, TAKE 1 TABLET BY MOUTH DAILY AT LEAST 30 MINUTES BEFORE FIRST FOOD, BEVERAGE, OR OTHER ORAL MEDS, Disp: , Rfl: SlowMag Mg Muscle/Heart 71.5-119 MG tablet delayed-release, Take 1 tablet by mouth Daily, Disp: , Rfl: traZODone (Desyrel) 50 MG tablet, Take 50 mg by mouth at bedtime, Disp: , Rfl: Review of systems: Constitutional: Denies fever, chills, nausea, vomiting GI: Denies abdominal pain, cramping, loose stool, gastric ulcers Musculoskeletal: Denies low back pain, knee pain, systemic arthritis Neurologic: Denies burning, tingling, transient paralysis OBJECTIVE Physical Examination: DERM: Positive hair growth to b/l feet with good skin turgor noted. Negative openings in skin. No macerations noted interdigitally. Web spaces were clean and dry. No ulcerations were noted. Nails 1 through 10 were thickened elongated yellow and crumbly with subungual debris. They were painful to palpation 07062 on the right [id number] on the left. VASC: DP /PT were nonpalpable bilateral. Capillary refill time < 3 seconds Digits 1-5 bilateral NEURO: [place] 5.07 monofilament was diminished B/L. Vibratory sensation was diminished b/l. Mild peripheral neuropathy noted in a stocking-glove orientation Musculoskeletal: Muscle strength was +5 over 5 all intrinsic and extrinsic muscles tested. Radiographs: AP/MO/LAT: Diagnostic ultrasound: ASSESSMENT 1. Type II diabetes mellitus with neurological manifestations (HCC) 2. Onychomycosis 3. Pain in right toe(s) 4. Pain in left toe(s) PLAN The patient was educated on proper diabetic foot care. There educated on the etiology of onychomycosis. Also educated on performing regular inspections of the feet. We discussed routine visits to her primary care physician to monitor the glucose levels as well. Today the nails were debrided both in length and thickness 1 through 10. Patient was educated on the increased risk for foot complications due to neuropathy, poor circulation, and delayed wound healing. Proper foot care is essential to prevent ulcers, infections, and potential amputations. The following recommendation given to the patient guarding diabetic foot care: 1. Daily Foot Inspection Check for cuts, sores, blisters, redness, swelling, or signs of infection. Use a mirror or seek assistance if unable to see the bottom of the feet. 2. Hygiene Wash feet daily with warm (not hot) water and mild soap. Dry thoroughly, especially between toes, to prevent fungal infections. 3. Moisturizing Apply moisturizer to prevent dryness and cracking, avoiding areas between toes. 4. Nail Care Patients should have their nails trimmed only by a counseling services director to reduce the risk of injury or complications. 5. Footwear Wear well-fitting, cushioned shoes that protect feet from injury. Avoid walking barefoot, even indoors. 6. Blood Sugar Control Maintain optimal blood sugar levels to promote circulation and healing. 7. Regular Monitoring by a Healthcare Provider Schedule regular foot exams by a provider to detect early signs of complications. Report any new foot issues immediately for timely intervention. Eduar Carpenter DPM FACFAS documented in this encounter [facility] 09-06-2024 Note Nurse Consultation [place] Reason for Visit lab draw Medications 32 gauge pen needle 4 mm, See Instructions, 3 refills Abilify 5 mg Tab, 5 mg= 1 tab(s), Oral, Daily, 3 refills alcohol, See Instructions, 3 refills Alcohol swabs, Kinde, band-aids, 0, 2 refills amLODIPine 5 mg Tab, 5 mg= 1 tab(s), Oral, Daily, 3 refills atorvastatin 40 mg Tab, See Instructions Basaglar KwikPen 100 units/mL subcutaneous solution, See Instructions ergocalciferol 50,000 intl units Cap, 84516 International_Unit= 1 cap(s), Oral, qWeek folic acid 1 mg Tab, See Instructions glimepiride 4 mg Tab, 4 mg= 1 tab(s), Oral, Daily, 3 refills Glucometer, 0 ketoconazole Top 2% Crm, 1 boyd, Topical, Daily Lancet #100, 0 lancets, See Instructions, 3 refills levothyroxine 75 mcg (0.075 mg) Tab, 75 mcg= 1 tab(s), Oral, Daily Lexapro 10 mg Tab, 10 mg= 1 tab(s), Oral, Daily, 3 refills Namenda 10 mg oral tablet, 10 mg= 1 tab(s), Oral, BID, 3 refills nystatin Top 100,000 units/g Pwdr, 1 boyd, Topical, BID, 3 refills propranolol 120 mg Cap-ER, See Instructions, 3 refills Requip 0.25 mg Tab, 0.25 mg= 1 tab(s), Oral, Daily, 1 refills Rybelsus 7 mg oral tablet, 7 mg= 1 tab(s), Oral, Daily, 3 refills Test Strips, See Instructions, 5 refills traZODONE 50 mg Tab, See Instructions, 3 refills triamcinolone Top 0.025% Crm, See Instructions Zofran 4 mg Tab, 4 mg= 1 tab(s), Oral, q8hr, PRN Allergies amoxicillin (Anaphylaxis) Immunizations Vaccine Date Status Comments influenza virus vaccine, inactivated 01/12/2024 Given pneumococcal 20-valent conjugate vaccine 03/24/2023 Given influenza virus vaccine, inactivated 12/23/2022 Given influenza virus vaccine, inactivated 02/03/2022 Recorded 2022-12-23: EXTERNAL ADMIN: PT RPT influenza virus vaccine, inactivated 01/28/2021 Recorded 2022-12-23: VIS DATE: 11/09/2020 pneumococcal 23-valent vaccine 07/26/2020 Recorded 2022-12-23: VIS DATE: 02/02/2019 influenza virus vaccine, inactivated 01/02/2016 Recorded influenza virus vaccine, inactivated 01/08/2015 Recorded [facility] 07-25-2024 Note Patient Education Cardiovascular Hypertension, Adult High blood pressure (hypertension) is when the force of blood pumping through the arteries is too strong. The arteries are the blood vessels that carry blood from the heart throughout the body. Hypertension forces the heart to work harder to pump blood and may cause arteries to become narrow or stiff. Untreated or uncontrolled hypertension can lead to a heart attack, heart failure, a stroke, kidney disease, and other problems. A blood pressure reading consists of a higher number over a lower number. Ideally, your blood pressure should be below 120/80. The first ( top ) number is called the systolic pressure. It is a measure of the pressure in your arteries as your heart beats. The second ( bottom ) number is called the diastolic pressure. It is a measure of the pressure in your arteries as the heart relaxes. What are the causes? The exact cause of this condition is not known. There are some conditions that result in high blood pressure. What increases the risk? Certain factors may make you more likely to develop high blood pressure. Some of these risk factors are under your control, including: ??? Smoking. ??? Not getting enough exercise or physical activity. ??? Being overweight. ??? Having too much fat, sugar, calories, or salt (sodium) in your diet. ??? Drinking too much alcohol. Other risk factors include: ??? Having a personal history of heart disease, diabetes, high cholesterol, or kidney disease. ??? Stress. ??? Having a family history of high blood pressure and high cholesterol. ??? Having obstructive sleep apnea. ??? Age. The risk increases with age. What are the signs or symptoms? High blood pressure may not cause symptoms. Very high blood pressure (hypertensive crisis) may cause: ??? Headache. ??? Fast or irregular heartbeats (palpitations). ??? Shortness of breath. ??? Nosebleed. ??? Nausea and vomiting. ??? Vision changes. ??? Severe chest pain, dizziness, and seizures. How is this diagnosed? This condition is diagnosed by measuring your blood pressure while you are seated, with your arm resting on a flat surface, your legs uncrossed, and your feet flat on the floor. The cuff of the blood pressure monitor will be placed directly against the skin of your upper arm at the level of your heart. Blood pressure should be measured at least twice using the same arm. Certain conditions can cause a difference in blood pressure between your right and left arms. If you have a high blood pressure reading during one visit or you have normal blood pressure with other risk factors, you may be asked to: ??? Return on a different day to have your blood pressure checked again. ??? Monitor your blood pressure at home for 1 week or longer. If you are diagnosed with hypertension, you may have other blood or imaging tests to help your health care provider understand your overall risk for other conditions. How is this treated? This condition is treated by making healthy lifestyle changes, such as eating healthy foods, exercising more, and reducing your alcohol intake. You may be referred for counseling on a healthy diet and physical activity. Your health care provider may prescribe medicine if lifestyle changes are not enough to get your blood pressure under control and if: ??? Your systolic blood pressure is above 130. ??? Your diastolic blood pressure is above 80. Your personal target blood pressure may vary depending on your medical conditions, your age, and other factors. Follow these instructions at home: Eating and drinking ??? Eat a diet that is high in fiber and potassium, and low in sodium, added sugar, and fat. An example of this eating plan is called the DASH diet. DASH stands for Dietary Approaches to Stop Hypertension. To eat this way: ? Eat plenty of fresh fruits and vegetables. Try to fill one half of your plate at each meal with fruits and vegetables. ? Eat whole grains, such as whole-wheat pasta, brown rice, or whole-grain bread. Fill about one fourth of your plate with whole grains. ? Eat or drink low-fat dairy products, such as skim milk or low-fat yogurt. ? Avoid fatty cuts of meat, processed or cured meats, and poultry with skin. Fill about one fourth of your plate with lean proteins, such as fish, chicken without skin, beans, eggs, or tofu. ? Avoid pre-made and processed foods. These tend to be higher in sodium, added sugar, and fat. ??? Reduce your daily sodium intake. Many people with hypertension should eat less than 1,500 mg of sodium a day. ??? Do not drink alcohol if: ? Your health care provider tells you not to drink. ? You are , may be , or are planning to become . ??? If you drink alcohol: ? Limit how much you have to: ? 0?1 drink a day for women. ? 0?2 drinks a day for men. ? Know how much alcohol is in your drink. In the [place] one drink equals one 12 oz bottle (more content not included)... [facility] 06-08-2024 Evaluation note Diagnosis Onset Date Resolution CKD (chronic kidney disease) stage 3, GFR 30-59 ml/min acute June 08, 2024 3:44pm Hyperlipidemia acute June 08, 2024 3:44pm Hypertensive chronic kidney disease with stage 1 through stage 4 chronic ki acute June 08, 2024 3:44pm Hyperuricemia acute June 08, 2024 3:44pm Hypomagnesemia acute June 08, 2024 3:44pm Secondary hyperparathyroidism acute June 08, 2 025 3:44pm Type 2 diabetes mellitus with diabetic chronic kidney disease acute June 08, 2024 3:44pm Vitamin D deficiency acute 2024 3:44pm Arthritis of carpometacarpal (CMC) joint of right thumb acute August 02, 2024 9:20am Right hand pain acute July 9:20am [facility] Work Phone: 1(230) 363-327402-03-2025 Hospital Discharge instructions Follow Up Care 05/09/2024 11:23:01 With:Alexi Lopes MD, FAM Address: [place] [address] [phone] When: only if needed [facility] 01-28-2025 Evaluation note* Diagnosis Onset Date Resolution Status Admit Date Arthritis of carpometacarpal (CMC) joint of right thumb acute April 9:40am Right hand pain acute April 072024 9:40am CKD (chronic kidney disease) stage 3, GFR 30-59 ml/min acute June 08 3:44pm Hyperlipidemia acute June 08, 2024 3:44pm Hypertensive chronic kidney disease with stage 1 through stage 4 chronic ki acute June 08, 2024 3:44pm Hyperuricemia acute June 08, 2024 3:44pm Hypomagnesemia acute June 08, 2024 3:44pm Secondary hyperparathyroidism acute June 08, 2024 3:44pm Type 2 diabetes mellitus wit h diabetic chronic kidney disease acute June 08, 2024 3:44pm Vitamin D deficiency acute 2024 3:44pm [facility] Work Phone: 1(604) 615-894501-12-2025 Hospital Discharge instructions Patient Education 04/17/2024 10:21:29 Type 2 Diabetes Mellitus, Self-Care, Adult Type 2 Diabetes Mellitus, Self-Care, Adult Caring for yourself after you have been diagnosed with type 2 diabetes (type 2 diabetes mellitus) means keeping your blood sugar (glucose) under control with a balance of: Nutrition. Exercise. Lifestyle changes. Medicines or insulin, if needed. Support from your team of health care providers and others. What are the risks? Having type 2 diabetes can put you at risk for other long-term (chronic) conditions, such as heart disease and kidney disease. Your health care provider may prescribe medicines to help prevent complications from diabetes. How to monitor your blood glucose Check your blood glucose every day or as often as told by your health care provider. Have your A1C (hemoglobin A1C) level checked two or more times a year, or as often as told by your health care provider. Your health care provider will set personalized treatment goals for you. Generally, the goal of treatment is to maintain the following blood glucose levels: ?Before meals: 80 130 mg/dL (4.4 7.2 mmol/L). ?After meals: below 180 mg/dL (10 mmol/L). ?A1C level: less than 7%. How to manage hyperglycemia and hypoglycemia Hyperglycemia symptoms Hyperglycemia, also called high blood glucose, occurs when blood glucose is too high. Make sure youknow the early signs of hyperglycemia, such as: Increased thirst. Hunger. Feeling very tired. Needing to urinate more often than usual. Blurry vision. Hypoglycemia symptoms Hypoglycemia, also called low blood glucose, occurs with a blood glucose level at or below 70 mg/dL(3.9 mmol/L). Diabetes medicines lower your blood glucose and can cause hypoglycemia. The risk for hypoglycemia increases during or after exercise, during sleep, during illness, and when skipping meals or not eating for a long time (fasting). It is important to know the symptoms of hypoglycemia and treat it right away. Always have a 06-[id number] carbohydrate snack with you to treat low blood glucose. Family members and close friends should also know the symptoms and understand how to treat hypoglycemia, in case you are not able to treat yourself. Symptoms may include: Hunger. Anxiety. Sweating and feeling clammy. Dizziness or feeling light-headed. Sleepiness. Increased heart rate. Irritability. Tingling or numbness around the mouth, lips, or tongue. Restless sleep. Severe hypoglycemia is when your blood glucose level is at or below 54 mg/dL (3 mmol/L). Severe hypoglycemia is an emergency. Do not wait to see if the symptoms will go away. Get medical help right away. Call your local emergency services (911 in the [place] Do not drive yourself to the hospital. If you have severe hypoglycemia and you cannot eat or drink, you may need glucagon. A family memberor close friend should learn how to check your blood glucose and how to give you glucagon. Ask yourhealth care provider if you need to have an emergency glucagon kit available. Follow these instructions at home: Medicines Take prescribed insulin or diabetes medicines as told by your health care provider. Do not run out of insulin or other diabetes medicines. Plan ahead so you always have these available. If you use insulin, adjust your dosage based on your physical activity and what foods you eat. Yourhealth care provider will tell you how to adjust your dosage. Take jayk-cge-upcelip and prescription medicines only as told by your health care provider. Eating and drinking What you eat and drink affects your blood glucose and your insulin dosage. Making good choices helps to control your diabetes and prevent other health problems. A healthy meal plan includes eating lean proteins, complex carbohydrates, fresh fruits and vegetables, low-fat dairy products, and healthy fats. Make an appointment to see a registered dietitian to help you create an eating plan that is right for you. Make sure that you: Follow instructions from your health care provider about eating or drinking restrictions. Drink enough fluid to keep your urine pale yellow. Keep a record of the carbohydrates that you eat. Do this by reading food labels and learning the standard serving sizes of foods. Follow your sick-day plan whenever you cannot eat or drink as usual. Make this plan in advance withyour health care provider. Activity Stay active. Exercise regularly, as told by your health care provider. This may include: ?Stretching and doing strength exercises, such as yoga or weight lifting, two or more times a week. ?Doing 150 minutes or more of moderate-intensity or vigorous-intensity exercise each week. This could be brisk walking, biking, or water aerobics. ?Spread out your activity over 3 or more days of the week. ?Do not go more than 2 days in a row without doing some kind of physical activity. When you start a new exercise or activity, work with your health care provider to adjust your insulin, medicines, or food intake as needed. Lifestyle Do not use any products that contain nicotine or tobacco. These products include cigarettes, chewing tobacco, and vaping devices, such as e-cigarettes. If you need help quitting, ask your health careprovider. If you drink alcohol and your health care provider says that it is safe for you: ?Limit how much you have to: ?0 1 drink a day for women who are not . ?0 2 drinks a day for men. ?Know how much alcohol is in your drink. In the [place] one drink equals one 12 oz bottle of beer (355 mL), one 5 oz glass of wine (148 mL), or one 1 oz glass of hard liquor (44 mL). Learn to manage stress. If you need help with this, ask your health care provider. Take care of your body Keep your immunizations up to date. In addition to getting vaccinations as told by your health careprovider, it is recommended that you get vaccinated against the following illnesses: ?The flu (influenza). Get a flu shot every year. ?Pneumonia. ?Hepatitis B. Schedule an eye exam soon after your diagnosis, and then one time every year after that. Check your skin and feet every day for cuts, bruises, redness, blisters, or sores. Schedule a foot exam with your health care provider once every year. [place] your teeth and gums two times a day, and floss one or more times a day. Visit your dentist one or more times every 6 months. Maintain a healthy weight. General instructions Share your diabetes management plan with people in your workplace, school, and household. Carry a medical alert card or wear medical alert jewelry. Keep all follow-up visits. This is important. Questions to ask your health care provider Should I meet with a certified diabetes care and education instructor? Where can I find a support group for people with diabetes? Where to find more information For help and guidance and for more information about diabetes, please visit: [place] Diabetes Association (ADA): www.diabetes.org [place] [employer] of Diabetes Care and Education Specialists (ADCES): www.diabeteseducator.org International Diabetes Federation (IDF): www.idf.org Summary Caring for yourself after you have been diagnosed with type 2 diabetes (type 2 diabetes mellitus) means keeping your blood sugar (glucose) under control with a balance of nutrition, exercise, lifestyle changes, and medicine. Check your blood glucose every day, as often as told by your health care provider. Having diabetes can put you at risk for other long-term (chronic) conditions, such as heart diseaseand kidney disease. Your health care provider may prescribe medicines to help prevent complicationsfrom diabetes. Share your diabetes management plan with people in your workplace, school, and household. Keep all follow-up visits. This is important. This information is not intended to replace advice given to you by your health care provider. Make sure you discuss any questions you have with your health care provider. Document Revised: 08/21/2021 Document Reviewed: 08/21/2021 [employer] Patient Education 2023 [employer]. Follow Up Care 04/14/2024 10:47:26 With:Lupillo MSN, APPLE PACKING HEADER-ACTIVITY THERAPIST, Loreta Wan Address: [address] [place] [phone] When: only if needed [facility] 01-12-2025 NotePatient Education Endocrinology Type 2 Diabetes Mellitus, Self-Care, Adult Caring for yourself after you have been diagnosed with type 2 diabetes (type 2 diabetes mellitus) means keeping your blood sugar (glucose) under control with a balance of: ??? Nutrition. ??? Exercise. ??? Lifestyle changes. ??? Medicines or insulin, if needed. ??? Support from your team of health care providers and others. What are the risks? Having type 2 diabetes can put you at risk for other long-term (chronic) conditions, such as heart disease and kidney disease. Your health care provider may prescribe medicines to help prevent complications from diabetes. How to monitor your blood glucose ??? Check your blood glucose every day or as often as told by your health care provider. ??? Have your A1C (hemoglobin A1C) level checked two or more times a year, or as often as told by your health care provider. ??? Your health care provider will set personalized treatment goals for you. Generally, the goal oftreatment is to maintain the following blood glucose levels: ? Before meals: 80?130 mg/dL (4.4?7.2 mmol/L). ? After meals: below 180 mg/dL (10 mmol/L). ? A1C level: less than 7%. How to manage hyperglycemia and hypoglycemia Hyperglycemia symptoms Hyperglycemia, also called high blood glucose, occurs when blood glucose is too high. Make sure youknow the early signs of hyperglycemia, such as: ??? Increased thirst. ??? Hunger. ??? Feeling very tired. ??? Needing to urinate more often than usual. ??? Blurry vision. Hypoglycemia symptoms Hypoglycemia, also called low blood glucose, occurs with a blood glucose level at or below 70 mg/dL(3.9 mmol/L). Diabetes medicines lower your blood glucose and can cause hypoglycemia. The risk for hypoglycemia increases during or after exercise, during sleep, during illness, and when skipping meals or not eating for a long time (fasting). It is important to know the symptoms of hypoglycemia and treat it right away. Always have a 76-subhjdjbn-raouzm carbohydrate snack with you to treat low blood glucose. Family members and close friends should also know the symptoms and understand how to treat hypoglycemia, in case you are not able to treat yourself. Symptoms may include: ??? Hunger. ??? Anxiety. ??? Sweating and feeling clammy. ??? Dizziness or feeling light-headed. ??? Sleepiness. ??? Increased heart rate. ??? Irritability. ??? Tingling or numbness around the mouth, lips, or tongue. ??? Restless sleep. Severe hypoglycemia is when your blood glucose level is at or below 54 mg/dL (3 mmol/L). Severe hypoglycemia is an emergency. Do not wait to see if the symptoms will go away. Get medical help right away. Call your local emergency services (911 in the [place] Do not drive yourself to the hospital. If you have severe hypoglycemia and you cannot eat or drink, you may need glucagon. A family memberor close friend should learn how to check your blood glucose and how to give you glucagon. Ask yourhealth care provider if you need to have an emergency glucagon kit available. Follow these instructions at home: Medicines ??? Take prescribed insulin or diabetes medicines as told by your health care provider. ??? Do not run out of insulin or other diabetes medicines. Plan ahead so you always have these available. ??? If you use insulin, adjust your dosage based on your physical activity and what foods you eat. Your health care provider will tell you how to adjust your dosage. ??? Take dkwi-jdm-xrbanmg and prescription medicines only as told by your health care provider. Eating and drinking What you eat and drink affects your blood glucose and your insulin dosage. Making good choices helps to control your diabetes and prevent other health problems. A healthy meal plan includes eating lean proteins, complex carbohydrates, fresh fruits and vegetables, low-fat dairy products, and healthy fats. Make an appointment to see a registered dietitian to help you create an eating plan that is right for you. Make sure that you: ??? Follow instructions from your health care provider about eating or drinking restrictions. ??? Drink enough fluid to keep your urine pale yellow. ??? Keep a record of the carbohydrates that you eat. Do this by reading food labels and learning the standard serving sizes of foods. ??? Follow your sick-day plan whenever you cannot eat or drink as usual. Make this plan in advance with your health care provider. Activity ??? Stay active. Exercise regularly, as told by your health care provider. This may include: ? Stretching and doing strength exercises, such as yoga or weight lifting, two or more times a week. ? Doing 150 minutes or more of moderate-intensity or vigorous-intensity exercise each week. This could be brisk walking, biking, or water aerobics. ? Spread out your activity over 3 or more days of the week. ? (more content not included)...[facility]2024 Hospital Discharge instructions Patient Education 03/24/2024 09:21:41 BMI for Adults BMI for Adults Body mass index (BMI) is a number found using a person's weight and height. BMI can help tell how much of a person's weight is made up of fat. BMI does not measure body fat directly. It is used instead of tests that directly measure body fat, which can be difficult and expensive. What are BMI measurements used for? BMI is useful to: Find out if your weight puts you at higher risk for medical problems. Help recommend changes, such as in diet and exercise. This can help you reach a healthy weight. BMIscreening can be done again to see if these changes are working. How is BMI calculated? Your height and weight are measured. The BMI is found from those numbers. This can be done with [place] or metric measurements. Note that charts and online BMI calculators are available to help you findyour BMI quickly and easily without doing these calculations. To calculate your BMI in [place] measurements: 1.Measure your weight in pounds (lb). 2.Multiply the number of pounds by 703. So, for an adult who weighs 150 lb, multiply that number by 703: 150 x 703, which equals 105,450. 3.Measure your height in inches. Then multiply that number by itself to get a measurement called inches squared. So, for an adult who is 70 inches tall, the inches squared measurement is 70 inches x 70 inches, which equals 4,900 inches squared. 4.Divide the total from step 2 (number of lb x 703) by the total from step 3 (inches squared): 105,450 4,900 = 21.5. This is your BMI. To calculate your BMI in metric measurements: 1.Measure your weight in kilograms (kg). For this example, the weight is 70 kg. 2.Measure your height in meters (m). Then multiply that number by itself to get a measurement called meters squared. So, for an adult who is 1.75 m tall, the meters squared measurement is 1.75 m x 1.75 m, which equals 3.1 meters squared. 3.Divide the number of kilograms (your weight) by the meters squared number. In this example: 70 3.1 = 22.6. This is your BMI. What do the results mean? BMI charts are used to see if you are underweight, normal weight, overweight, or obese. The following guidelines will be used: Underweight: BMI less than 18.5. Normal weight: BMI between 18.5 and 24.9. Overweight: BMI between 25 and 29.9. Obese: BMI of 30 or above. BMI is a tool and cannot diagnose a condition. Talk with your health care provider about what your BMI means for you. Keep these notes in mind: Weight includes fat and muscle. Someone with a muscular build, such as an athlete, may have a BMI that is higher than 24.9. In cases like these, BMI is not a correct measure of body fat. If you have a BMI of 25 or higher, your provider may need to do more testing to find out if excess body fat is the cause. BMI is measured the same way for males and females. Females usually have more body fat than males of the same height and weight. Where to find more information For more information about BMI, including tools to quickly find your BMI, go to: Centers for Disease Control and Prevention: cdc.gov [place] Heart Association: heart.org National Heart, Lung, and Blood [place]: nhlbi.nih.gov This information is not intended to replace advice given to you by your health care provider. Make sure you discuss any questions you have with your health care provider. Document Revised: 12/11/2022 Document Reviewed: 12/04/2022 [employer] Patient Education 2023 [employer]. 03/24/2024 09:21:36 Hypothyroidism Hypothyroidism Hypothyroidism is when the thyroid gland does not make enough of certain hormones. This is called an underactive thyroid. The thyroid gland is a small gland located in the lower front part of the neck, just in front of the windpipe (trachea). This gland makes hormones that help control how the bodyuses food for energy (metabolism) as well as how the heart and brain function. These hormones also play a role in keeping your bones strong. When the thyroid is underactive, it produces too little ofthe hormones thyroxine (T4) and triiodothyronine (T3). What are the causes? This condition may be caused by: Gera's disease. This is a disease in which the body's disease-fighting system (immune system) attacks the thyroid gland. This is the most common cause. Viral infections. . Certain medicines. defects. Problems with a gland in the center of the brain (pituitary gland). Lack of enough iodine in the diet. Other causes may include: Past radiation treatments to the head or neck for cancer. Past treatment with radioactive iodine. Past exposure to radiation in the environment. Past surgical removal of part or all of the thyroid. What increases the risk? You are more likely to develop this condition if: You are female. You have a family history of thyroid conditions. You use a medicine called lithium. You take medicines that affect the immune system (immunosuppressants). What are the signs or symptoms? Common symptoms of this condition include: Not being able to tolerate cold. Feeling as though you have no energy (lethargy). Lack of appetite. Constipation. Sadness or depression. Weight gain that is not explained by a change in diet or exercise habits. Menstrual irregularity. Dry skin, coarse hair, or brittle nails. Other symptoms may include: Muscle pain. Slowing of thought processes. Poor memory. How is this diagnosed? This condition may be diagnosed based on: Your symptoms, your medical history, and a physical exam. Blood tests. You may also have imaging tests, such as an ultrasound or MRI. How is this treated? This condition is treated with medicine that replaces the thyroid hormones that your body does not make. After you begin treatment, it may take several weeks for symptoms to go away. Follow these instructions at home: Take ezjy-lcg-bmzfefc and prescription medicines only as told by your health care provider. If you start taking any new medicines, tell your health care provider. Keep all follow-up visits as told by your health care provider. This is important. ?As your condition improves, your dosage of thyroid hormone medicine may change. ?You will need to have blood tests regularly so that your health care provider can monitor your condition. Contact a health care provider if: Your symptoms do not get better with treatment. You are taking thyroid hormone replacement medicine and you: ?Sweat a lot. ?Have tremors. ?Feel anxious. ?Lose weight rapidly. ?Cannot tolerate heat. ?Have emotional swings. ?Have diarrhea. ?Feel weak. Get help right away if: You have chest pain. You have an irregular heartbeat. You have a rapid heartbeat. You have difficulty breathing. These symptoms may be an emergency. Get help right away. Call 911. Do not wait to see if the symptoms will go away. Do not drive yourself to the hospital. Summary Hypothyroidism is when the thyroid gland does not make enough of certain hormones (it is underactive). When the thyroid is underactive, it produces too little of the hormones thyroxine (T4) and triiodothyronine (T3). The most common cause is Gera's disease, a disease in which the body's disease-fighting system(immune system) attacks the thyroid gland. The condition can also be caused by viral infections, medicine, , or past radiation treatment to the head or neck. Symptoms may include weight gain, dry skin, constipation, feeling as though you do not have energy,and not being able to tolerate cold. This condition is treated with medicine to replace the thyroid hormones that your body does not make. This information is not intended to replace advice given to you by your health care provider. Make sure you discuss any questions you have with your health care provider. Document Revised: 03/25/2022 Document Reviewed: 03/25/2022 [employer] Patient Education 2023 [employer]. 03/24/2024 09:21:31 Managing Anxiety, Adult Managing Anxiety, Adult After being diagnosed with anxiety, you may be relieved to know why you have felt or behaved a certain way. You may also feel overwhelmed about the treatment ahead and what it will mean for your life. With care and support, you can manage your anxiety. How to manage lifestyle changes Understanding the difference between stress and anxiety Although stress can play a role in anxiety, it is not the same as anxiety. Stress is your body's reaction to life changes and events, both good and bad. Stress is often caused by something external, such as a deadline, test, or competition. It normally goes away after the event has ended and will last just a few hours. But, stress can be ongoing and can lead to more than just stress. Anxiety is caused by something internal, such as imagining a terrible outcome or worrying that something will go wrong that will greatly upset you. Anxiety often does not go away even after the eventis over, and it can become a long-term (chronic) worry. Lowering stress and anxiety Talk with your health care provider or a counselor to learn more about lowering anxiety and stress.They may suggest tension-reduction techniques, such as: Music. Spend time creating or listening to music that you enjoy and that inspires you. Mindfulness-based meditation. Practice being aware of your normal breaths while not trying to control your breathing. It can be done while sitting or walking. Centering prayer. Focus on a word, phrase, or sacred image that means something to you and brings you peace. Deep breathing. Expand your stomach and inhale slowly through your nose. Hold your breath for 3 5 seconds. Then breathe out slowly, letting your stomach muscles relax. Self-talk. Learn to notice and spot thought patterns that lead to anxiety reactions. Change those patterns to thoughts that feel peaceful. Muscle relaxation. Take time to tense muscles and then relax them. Choose a tension-reduction technique that fits your lifestyle and personality. These techniques take time and practice. Set aside 5 15 minutes a day to do them. Specialized therapists can offer counseling and training in these techniques. The training to help with anxiety may be covered by some insurance plans. Other things you can do to manage stress and anxiety include: Keeping a stress diary. This can help you learn what triggers your reaction and then learn ways to manage your response. Thinking about how you react to certain situations. You may not be able to control everything, but you can control your response. Making time for activities that help you relax and not feeling guilty about spending your time in this way. Doing visual imagery. This involves imagining or creating mental pictures to help you relax. Practicing yoga. Through yoga poses, you can lower tension and relax. Medicines Medicines for anxiety include: Antidepressant medicines. These are usually prescribed for long-term daily control. Anti-anxiety medicines. These may be added in severe cases, especially when panic attacks occur. When used together, medicines, psychotherapy, and tension-reduction techniques may be the most effective treatment. Relationships Relationships can play a big part in helping you recover. Spend more time connecting with trusted friends and family members. Think about going to couples counseling if you have a partner, taking family education classes, or going to family therapy. Therapy can help you and others better understandyour anxiety. How to recognize changes in your anxiety Everyone responds differently to treatment for anxiety. Recovery from anxiety happens when symptomslessen and stop interfering with your daily life at home or work. This may mean that you will startto: Have better concentration and focus. Worry will interfere less in your daily thinking. Sleep better. Be less irritable. Have more energy. Have improved memory. Try to recognize when your condition is getting worse. Contact your provider if your symptoms interfere with home or work and you feel like your condition is not improving. Follow these instructions at home: Activity Exercise. Adults should: ?Exercise for at least 150 minutes each week. The exercise should increase your heart rate and makeyou sweat (moderate-intensity exercise). ?Do strengthening exercises at least twice a week. Get the right amount and quality of sleep. Most adults need 7 9 hours of sleep each night. Lifestyle Eat a healthy diet that includes plenty of vegetables, fruits, whole grains, low-fat dairy products, and lean protein. ?Do not eat a lot of foods that are high in fats, added sugars, or salt (sodium). Make choices that simplify your life. Do not use any products that contain nicotine or tobacco. These products include cigarettes, chewing tobacco, and vaping devices, such as e-cigarettes. If you need help quitting, ask your provider. Avoid caffeine, alcohol, and certain dfdk-lwt-anmnevi cold medicines. These may make you feel worse. Ask your pharmacist which medicines to avoid. General instructions Take vhxz-ppg-jczifhp and prescription medicines only as told by your provider. Keep all follow-up visits. This is to make sure you are managing your anxiety well or if you need more support. Where to find support You can get help and support from: Self-help groups. Online and community organizations. A trusted spiritual leader. Couples counseling. Family education classes. Family therapy. Where to find more information You may find that joining a support group helps you deal with your anxiety. The following sources can help you find counselors or support groups near you: Mental Health [place]: mentalhealthamerica.net Anxiety and Depression Association of [place] (ADAA): adaa.org National [place] on Mental Illness (TAMI): tami.org Contact a health care provider if: You have a hard time staying focused or finishing tasks. You spend many hours a day feeling worried about everyday life. You are very tired because you cannot stop worrying. You start to have headaches or often feel tense. You have chronic nausea or diarrhea. Get help right away if: Your heart feels like it is racing. You have shortness of breath. You have thoughts of hurting yourself or others. Get help right away if you feel like you may hurt yourself or others, or have thoughts about takingyour own life. Go to your nearest emergency room or: Call 911. Call the National Suicide Prevention Lifeline at or 672. This is open 24 hours a day. Text the Crisis Text Line at 691894. This information is not intended to replace advice given to you by your health care provider. Make sure you discuss any questions you have with your health care provider. Document Revised: 12/30/2022 Document Reviewed: 07/14/2021 [employer] Patient Education 2023 [employer] 03/24/2024 09:21:27 DASH Eating Plan DASH Eating Plan DASH stands for Dietary Approaches to Stop Hypertension. The DASH eating plan is a healthy eating plan that has been shown to: Lower high blood pressure (hypertension). Reduce your risk for type 2 diabetes, heart disease, and stroke. Help with weight loss. What are tips for following this plan? Reading food labels Check food labels for the amount of salt (sodium) per serving. Choose foods with less than 5 percent of the Daily Value (DV) of sodium. In general, foods with less than 300 milligrams (mg) of sodium per serving fit into this eating plan. To find whole grains, look for the word whole as the first word in the ingredient list. Shopping Buy products labeled as low-sodium or no salt added. Buy fresh foods. Avoid canned foods and pre-made or frozen meals. Cooking Try not to add salt when you cook. Use salt-free seasonings or herbs instead of table salt or sea salt. Check with your health care provider or pharmacist before using salt substitutes. Do not gresham foods. Cook foods in healthy ways, such as baking, boiling, grilling, roasting, or broiling. Cook using oils that are good for your heart. These include olive, canola, avocado, soybean, and sunflower oil. Meal planning Eat a balanced diet. This should include: ?4 or more servings of fruits and 4 or more servings of vegetables each day. Try to fill half of your plate with fruits and vegetables. ?6 8 servings of whole grains each day. ?6 or less servings of lean meat, poultry, or fish each day. 1 oz is 1 serving. A 3 oz (85 g) serving of meat is about the same size as the palm of your hand. One egg is 1 oz (28 g). ?2 3 servings of low-fat dairy each day. One serving is 1 cup (237 mL). ?1 serving of nuts, seeds, or beans 5 times each week. ?2 3 servings of heart-healthy fats. Healthy fats called omega-3 fatty acids are found in foods such as walnuts, flaxseeds, fortified milks, and eggs. These fats are also found in cold-water fish, such as sardines, salmon, and mackerel. Limit how much you eat of: ?Canned or prepackaged foods. ?Food that is high in trans fat, such as fried foods. ?Food that is high in saturated fat, such as fatty meat. ?Desserts and other sweets, sugary drinks, and other foods with added sugar. ?Full-fat dairy products. Do not salt foods before eating. Do not eat more than 4 egg yolks a week. Try to eat at least 2 vegetarian meals a week. Eat more home-cooked food and less restaurant, buffet, and fast food. Lifestyle When eating at a restaurant, ask if your food can be made with less salt or no salt. If you drink alcohol: ?Limit how much you have to: ?0 1 drink a day if you are female. ?0 2 drinks a day if you are male. ?Know how much alcohol is in your drink. In the [place] one drink is one 12 oz bottle of beer (355 mL), one 5 oz glass of wine (148 mL), or one 1 oz glass of hard liquor (44 mL). General information Avoid eating more than 2,300 mg of salt a day. If you have hypertension, you may need to reduce your sodium intake to 1,500 mg a day. Work with your provider to stay at a healthy body weight or lose weight. Ask what the best weight range is for you. On most days of the week, get at least 30 minutes of exercise that causes your heart to beat faster. This may include walking, swimming, or biking. Work with your provider or dietitian to adjust your eating plan to meet your specific calorie needs. What foods should I eat? Fruits All fresh, dried, or frozen fruit. Canned fruits that are in their natural juice and do not have sugar added to them. Vegetables Fresh or frozen vegetables that are raw, steamed, roasted, or grilled. Low- sodium or reduced-sodiumtomato and vegetable juice. Low-sodium or reduced-sodium tomato sauce and tomato paste. Low-sodium or reduced-sodium canned vegetables. Grains Whole-grain or whole-wheat bread. Whole-grain or whole-wheat pasta. Brown rice. Oatmeal. Quinoa. Bulgur. Whole-grain and low-sodium cereals. Anuja bread. Low- fat, low-sodium crackers. Whole-wheat flour tortillas. Meats and other proteins Skinless chicken or turkey. Ground chicken or turkey. Pork with fat trimmed off. Fish and seafood. Egg whites. Dried beans, peas, or lentils. Unsalted nuts, nut butters, and seeds. Unsalted canned beans. Lean cuts of beef with fat trimmed off. Low-sodium, lean precooked or cured meat, such as sausages or meat loaves. Dairy Low-fat (1%) or fat-free (skim) milk. Reduced-fat, low-fat, or fat-free cheeses. Nonfat, low-sodiumricotta or cottage cheese. Low-fat or nonfat yogurt. Low-fat, low-sodium cheese. Fats and oils Soft margarine without trans fats. Vegetable oil. Reduced-fat, low-fat, or light mayonnaise and salad dressings (reduced-sodium). Canola, safflower, olive, avocado, soybean, and sunflower oils. Avocado. Seasonings and condiments Herbs. Spices. Seasoning mixes without salt. Other foods Unsalted popcorn and pretzels. Fat-free sweets. The items listed above may not be all the foods and drinks you can have. Talk to a dietitian to learn more. What foods should I avoid? Fruits Canned fruit in a light or heavy syrup. Fried fruit. Fruit in cream or butter sauce. Vegetables Creamed or fried vegetables. Vegetables in a cheese sauce. Regular canned vegetables that are not marked as low-sodium or reduced-sodium. Regular canned tomato sauce and paste that are not marked as low-sodium or reduced-sodium. Regular tomato and vegetable juices that are not marked as low-sodium or reduced-sodium. Pickles. Olives. Grains Baked goods made with fat, such as croissants, muffins, or some breads. Dry pasta or rice meal packs. Meats and other proteins Fatty cuts of meat. Ribs. Fried meat. Calle. Bologna, salami, and other precooked or cured meats, such as sausages or meat loaves, that are not lean and low in sodium. Fat from the back of a pig (fatback). Bratwurst. Salted nuts and seeds. Canned beans with added salt. Canned or smoked fish. Whole eggs or egg yolks. Chicken or turkey with skin. Dairy Whole or 2% milk, cream, and [id number]. Whole or full-fat cream cheese. Whole-fat or sweetened yogurt. Full-fat cheese. Nondairy creamers. Whipped toppings. Processed cheese and cheese spreads. Fats and oils Butter. Stick margarine. Lard. Shortening. Ghee. Calle fat. Tropical oils, such as coconut, palm kernel, or palm oil. Seasonings and condiments Onion salt, garlic salt, seasoned salt, table salt, and sea salt. Worcestershire sauce. Tartar sauce. Barbecue sauce. Teriyaki sauce. Soy sauce, including reduced-sodium soy sauce. Steak sauce. Canned and packaged gravies. Fish sauce. Oyster sauce. Cocktail sauce. Store-bought horseradish. Ketchup.Mustard. Meat flavorings and tenderizers. Bouillon cubes. Hot sauces. Pre-made or packaged marinades. Pre-made or packaged taco seasonings. Relishes. Regular salad dressings. Other foods Salted popcorn and pretzels. The items listed above may not be all the foods and drinks you should avoid. Talk to a dietitian margarito more. Where to find more information National Heart, Lung, and Blood [place] (NHLBI): nhlbi.nih.gov [place] [employer] (AHA): heart.org Academy of Nutrition and Dietetics: eatright.org National Kidney Foundation (NKF): kidney.org This information is not intended to replace advice given to you by your health care provider. Make sure you discuss any questions you have with your health care provider. Document Revised: 04/09/2023 Document Reviewed: 04/09/2023 [employer] Patient Education 2023 [employer]. 03/24/2024 09:21:25 Managing Depression, Adult Managing Depression, Adult Depression is a mental health condition that affects your thoughts, feelings, and actions. Being diagnosed with depression can bring you relief if you did not know why you have felt or behaved a certain way. It could also leave you feeling overwhelmed. Finding ways to manage your symptoms can help you feel more positive about your future. How to manage lifestyle changes Being depressed is difficult. Depression can increase the level of everyday stress. Stress can makedepression symptoms worse. You may believe your symptoms cannot be managed or will never improve. However, there are many things you can try to help manage your symptoms. There is hope. Managing stress Stress is your body's reaction to life changes and events, both good and bad. Stress can add to your feelings of depression. Learning to manage your stress can help lessen your feelings of depression. Try some of the following approaches to reducing your stress (stress reduction techniques): Listen to music that you enjoy and that inspires you. Try using a meditation boyd or take a meditation class. Develop a practice that helps you connect with your spiritual self. Walk in nature, pray, or go to a place of uatsdin. Practice deep breathing. To do this, inhale slowly through your nose. Pause at the top of your inhale for a few seconds and then exhale slowly, letting yourself relax. Repeat this three or four times. Practice yoga to help relax and work your muscles. Choose a stress reduction technique that works for you. These techniques take time and practice to develop. Set aside 5 15 minutes a day to do them. Therapists can offer training in these techniques.Do these things to help manage stress: Keep a journal. Know your limits. Set healthy boundaries for yourself and others, such as saying no when you think something is too much. Pay attention to how you react to certain situations. You may not be able to control everything, but you can change your reaction. Add humor to your life by watching funny movies or shows. Make time for activities that you enjoy and that relax you. Spend less time using electronics, especially at night before bed. The light from screens can make your brain think it is time to get up rather than go to bed. Medicines Medicines, such as antidepressants, are often a part of treatment for depression. Talk with your pharmacist or health care provider about all the medicines, supplements, and herbal products that you take, their possible side effects, and what medicines and other products are safe to take together. Make sure to report any side effects you may have to your health care provider. Relationships Your health care provider may suggest family therapy, couples therapy, or individual therapy as part of your treatment. How to recognize changes Everyone responds differently to treatment for depression. As you recover from depression, you may start to: Have more interest in doing activities. Feel more hopeful. Have more energy. Eat a more regular amount of food. Have better mental focus. It is important to recognize if your depression is not getting better or is getting worse. The symptoms you had in the beginning may return, such as: Feeling tired. Eating too much or too little. Sleeping too much or too little. Feeling restless, agitated, or hopeless. Trouble focusing or making decisions. Having unexplained aches and pains. Feeling irritable, angry, or aggressive. If you or your family members notice these symptoms coming back, let your health care provider knowright away. Follow these instructions at home: Activity Try to get some form of exercise each day, such as walking. Try yoga, mindfulness, or other stress reduction techniques. Participate in group activities if you are able. Lifestyle Get enough sleep. Cut down on or stop using caffeine, tobacco, alcohol, and any other harmful substances. Eat a healthy diet that includes plenty of vegetables, fruits, whole grains, low-fat dairy products, and lean protein. Limit foods that are high in solid fats, added sugar, or salt (sodium). General instructions Take [id number]-[id number] and prescription medicines only as told by your health care provider. Keep all follow-up visits. It is important for your health care provider to check on your mood, behavior, and medicines. Your health care provider may need to make changes to your treatment. Where to find support Talking to others Friends and family members can be sources of support and guidance. Talk to trusted friends or family members about your condition. Explain your symptoms and let them know that you are working with a health care provider to treat your depression. Tell friends and family how they can help. Finances Find mental health providers that fit with your financial situation. Talk with your health care provider if you are worried about access to food, housing, or medicine. Call your insurance company to learn about your co-pays and prescription plan. Where to find more information You can find support in your area from: Anxiety and Depression Association of [place] (ADAA): adaa.org Mental Health [place]: mentalhealthamerica.net National [place] on Mental Illness: tami.org Contact a health care provider if: You stop taking your antidepressant medicines, and you have any of these symptoms: ?Nausea. ?Headache. ?Light-headedness. ?Chills and body aches. ?Not being able to sleep (insomnia). You or your friends and family think your depression is getting worse. Get help right away if: You have thoughts of hurting yourself or others. Get help right away if you feel like you may hurt yourself or others, or have thoughts about takingyour own life. Go to your nearest emergency room or: Call 911. Call the National Suicide Prevention Lifeline at or 429. This is open 24 hours a day. Text the Crisis Text Line at 496141. This information is not intended to replace advice given to you by your health care provider. Make sure you discuss any questions you have with your health care provider. Document Revised: 07/29/2022 Document Reviewed: 07/29/2022 [employer] Patient Education 2023 [employer]. 03/24/2024 09:21:21 Chronic Kidney Disease, Adult Chronic Kidney Disease, Adult Chronic kidney disease (CKD) occurs when the kidneys are slowly and permanently damaged over a longperiod of time. The kidneys are a pair of organs that do many important jobs in the body, including: Removing waste and extra fluid from the blood to make urine. Making hormones that maintain the amount of fluid in tissues and blood vessels. Maintaining the right amount of fluids and chemicals in the body. A small amount of kidney damage may not cause problems, but a large amount of damage may make it hard or impossible for the kidneys to work right. Steps must be taken to slow kidney damage or to stopit from getting worse. If steps are not taken, the kidneys may stop working permanently (end-stage renal disease, or ESRD). Most of the time, CKD does not go away, but it can often be controlled. People who have CKD are usually able to live full lives. What are the causes? The most common causes of this condition are diabetes and high blood pressure (hypertension). Other causes include: Cardiovascular diseases. These affect the heart and blood vessels. Kidney diseases. These include: ?Glomerulonephritis, or inflammation of the tiny filters in the kidneys. ?Interstitial nephritis. This is swelling of the small tubes of the kidneys and of the surrounding structures. ?Polycystic kidney disease, in which clusters of fluid-filled sacs form within the kidneys. ?Renal vascular disease. This includes disorders that affect the arteries and veins of the kidneys. Diseases that affect the body's defense system (immune system). A problem with urine flow. This may be caused by: ?Kidney stones. ?Cancer. ?An enlarged prostate, in males. A kidney infection or urinary tract infection (UTI) that keeps coming back. Vasculitis. This is swelling or inflammation of the blood vessels. What increases the risk? Your chances of having kidney disease increase with age. The following factors may make you more likely to develop this condition: A family history of kidney disease or kidney failure. Kidney failure means the kidneys can no longer work right. Certain genetic diseases. Taking medicines often that are damaging to the kidneys. Being around or being in contact with toxic substances. Obesity. A history of tobacco use. What are the signs or symptoms? Symptoms of this condition include: Feeling very tired (lethargic) and having less energy. Swelling, or edema, of the face, legs, ankles, or feet. Nausea or vomiting, or loss of appetite. Confusion or trouble concentrating. Muscle twitches and cramps, especially in the legs. Dry, itchy skin. A metallic taste in the mouth. Producing less urine, or producing more urine (especially at night). Shortness of breath. Trouble sleeping. CKD may also result in not having enough red blood cells or hemoglobin in the blood (anemia) or having weak bones (bone disease). Symptoms develop slowly and may not be obvious until the kidney damage becomes severe. It is possible to have kidney disease for years without having symptoms. How is this diagnosed? This condition may be diagnosed based on: Blood tests. Urine tests. Imaging tests, such as an ultrasound or a CT scan. A kidney biopsy. This involves removing a sample of kidney tissue to be looked at under a microscope. Results from these tests will help to determine how serious the CKD is. How is this treated? There is no cure for most cases of this condition, but treatment usually relieves symptoms and prevents or slows the worsening of the disease. Treatment may include: Diet changes, which may require you to avoid alcohol and foods that are high in salt, potassium, phosphorous, and protein. Medicines. These may: ?Lower blood pressure. ?Control blood sugar (glucose). ?Relieve anemia. ?Relieve swelling. ?Protect your bones. ?Improve the balance of salts and minerals in your blood (electrolytes). Dialysis, which is a type of treatment that removes toxic waste from the body. It may be needed if you have kidney failure. Managing any other conditions that are causing your CKD or making it worse. Follow these instructions at home: Medicines Take ziez-[id number]-[id number] and prescription medicines only as told by your health care provider. The amount of some medicines that you take may need to be changed. Do not take any new medicines unless approved by your health care provider. Many medicines can makekidney damage worse. Do not take any vitamin and mineral supplements unless approved by your health care provider. Many nutritional supplements can make kidney damage worse. Lifestyle Do not use any products that contain nicotine or tobacco, such as cigarettes, e- cigarettes, and chewing tobacco. If you need help quitting, ask your health care provider. If you drink alcohol: ?Limit how much you use to: ?0 1 drink a day for women who are not . ?0 2 drinks a day for men. ?Know how much alcohol is in your drink. In the [place] one drink equals one 12 oz bottle of beer (355 mL), one 5 oz glass of wine (148 mL), or one 1 oz glass of hard liquor (44 mL). Maintain a healthy weight. If you need help, ask your health care provider. General instructions Follow instructions from your health care provider about eating or drinking restrictions, includingany prescribed diet. Track your blood pressure at home. Report changes in your blood pressure as told. If you are being treated for diabetes, track your blood glucose levels as told. Start or continue an exercise plan. Exercise at least 30 minutes a day, 5 days a week. Keep your immunizations up to date as told. Keep all follow-up visits. This is important. Where to find more information [place] Association of Kidney Patients: www.aakp.org National Kidney Foundation: www.kidney.org [place] Kidney Fund: www.akfinc.org Life Options: www.lifeoptions.org Kidney School: www.kidneyschool.org Contact a health care provider if: Your symptoms get worse. You develop new symptoms. Get help right away if: You develop symptoms of ESRD. These include: ?Headaches. ?Numbness in your hands or feet. ?Easy bruising. ?Frequent hiccups. ?Chest pain. ?Shortness of breath. ?Lack of menstrual periods, in women. You have a fever. You are producing less urine than usual. You have pain or bleeding when you urinate or when you have a bowel movement. These symptoms may represent a serious problem that is an emergency. Do not wait to see if the symptoms will go away. Get medical help right away. Call your local emergency services (911 in the [place] Do not drive yourself to the hospital. Summary Chronic kidney disease (CKD) occurs when the kidneys become damaged slowly over a long period of time. The most common causes of this condition are diabetes and high blood pressure (hypertension). There is no cure for most cases of CKD, but treatment usually relieves symptoms and prevents or slows the worsening of the disease. Treatment may include a combination of lifestyle changes, medicines, and dialysis. This information is not intended to replace advice given to you by your health care provider. Make sure you discuss any questions you have with your health care provider. Document Revised: 06/27/2020 Document Reviewed: 06/27/2020 [employer] Patient Education 2023 [employer]. 03/24/2024 09:21:17 Diabetes Mellitus and Exercise Diabetes Mellitus and Exercise Regular exercise is important for your health, especially if you have diabetes mellitus. Exercise is not just about losing weight. It can also help you increase muscle strength and bone density and reduce body fat and stress. This can help your level of endurance and make you more fit and flexible. Why should I exercise if I have diabetes? Exercise has many benefits for people with diabetes. It can: Help lower and control your blood sugar (glucose). Help your body respond better and become more sensitive to the hormone insulin. Reduce how much insulin your body needs. Lower your risk for heart disease by: ?Lowering how much bad cholesterol and triglycerides you have in your body. ?Increasing how much good cholesterol you have in your body. ?Lowering your blood pressure. ?Lowering your blood glucose levels. What is my activity plan? Your health care provider or an expert trained in diabetes care (certified nutritionist) can help you make an activity plan. This plan can help you find the type of exercise that works for you. It may also tell you how often to exercise and for how long. Be sure to: Get at least 150 minutes of medium-intensity or high-intensity exercise each week. This may involvebrisk walking, biking, or water aerobics. Do stretching and strengthening exercises at least 2 times a week. This may involve yoga or weight lifting. Spread out your activity over at least 3 days of the week. Get some form of physical activity each day. ?Do not go more than 2 days in a row without some kind of activity. ?Avoid being inactive for more than 30 minutes at a time. Take frequent breaks to walk or stretch. Choose activities that you enjoy. Set goals that you know you can accomplish. Start slowly and increase the intensity of your exercise over time. How do I manage my diabetes during exercise? Monitor your blood glucose Check your blood glucose before and after you exercise. ?If your blood glucose is 240 mg/dL (13.3 mmol/L) or higher before you exercise, check your urine for ketones. These are chemicals created by the liver. If you have ketones in your urine, do not exercise until your blood glucose returns to normal. ?If your blood glucose is 100 mg/dL (5.6 mmol/L) or lower, eat a snack that has 15 20 grams of carbohydrate in it. Check your blood glucose 15 minutes after the snack to make sure that your level is above 100 mg/dL (5.6 mmol/L) before you start to exercise. Your risk for low blood glucose (hypoglycemia) goes up during and after exercise. Know the symptomsof this condition and how to treat it. Follow these instructions at home: Keep a carbohydrate snack on hand for use before, during, and after exercise. This can help preventor treat hypoglycemia. Avoid injecting insulin into parts of your body that are going to be used during exercise. This mayinclude: ?Your arms, when you are going to play tennis. ?Your legs, when you are about to go jogging. Keep track of your exercise habits. This can help you and your health care provider watch and adjust your activity plan. Write down: ?What you eat before and after you exercise. ?Blood glucose levels before and after you exercise. ?The type and amount of exercise you do. Talk to your health care provider before you start a new activity. They may need to: ?Make sure that the activity is safe for you. ?Adjust your insulin, other medicines, and food that you eat. Drink water while you exercise. This can stop you from losing too much water (dehydration). It can also prevent problems caused by having a lot of heat in your body (heat stroke). Where to find more information [place] Diabetes Association: diabetes.org Association of Diabetes Care & Education Specialists: diabeteseducator.org This information is not intended to replace advice given to you by your health care provider. Make sure you discuss any questions you have with your health care provider. Document Revised: 09/10/2022 Document Reviewed: 09/10/2022 [employer] Patient Education 2023 [employer]. [facility] [place] 2024 NotePatient Education Endocrinology Hypothyroidism Hypothyroidism is when the thyroid gland does not make enough of certain hormones. This is called an underactive thyroid. The thyroid gland is a small gland located in the lower front part of the neck, just in front of the windpipe (trachea). This gland makes hormones that help control how the bodyuses food for energy (metabolism) as well as how the heart and brain function. These hormones also play a role in keeping your bones strong. When the thyroid is underactive, it produces too little ofthe hormones thyroxine (T4) and triiodothyronine (T3). What are the causes? This condition may be caused by: ??? Gera's disease. This is a disease in which the body's disease-fighting system (immune system) attacks the thyroid gland. This is the most common cause. ??? Viral infections. ??? . ??? Certain medicines. ??? defects. ??? Problems with a gland in the center of the brain (pituitary gland). ??? Lack of enough iodine in the diet. Other causes may include: ??? Past radiation treatments to the head or neck for cancer. ??? Past treatment with radioactive iodine. ??? Past exposure to radiation in the environment. ??? Past surgical removal of part or all of the thyroid. What increases the risk? You are more likely to develop this condition if: ??? You are female. ??? You have a family history of thyroid conditions. ??? You use a medicine called lithium. ??? You take medicines that affect the immune system (immunosuppressants). What are the signs or symptoms? Common symptoms of this condition include: ??? Not being able to tolerate cold. ??? Feeling as though you have no energy (lethargy). ??? Lack of appetite. ??? Constipation. ??? Sadness or depression. ??? Weight gain that is not explained by a change in diet or exercise habits. ??? Menstrual irregularity. ??? Dry skin, coarse hair, or brittle nails. Other symptoms may include: ??? Muscle pain. ??? Slowing of thought processes. ??? Poor memory. How is this diagnosed? This condition may be diagnosed based on: ??? Your symptoms, your medical history, and a physical exam. ??? Blood tests. You may also have imaging tests, such as an ultrasound or MRI. How is this treated? This condition is treated with medicine that replaces the thyroid hormones that your body does not make. After you begin treatment, it may take several weeks for symptoms to go away. Follow these instructions at home: ??? Take jzty-ujz-ltqqynu and prescription medicines only as told by your health care provider. ??? If you start taking any new medicines, tell your health care provider. ??? Keep all follow-up visits as told by your health care provider. This is important. ? As your condition improves, your dosage of thyroid hormone medicine may change. ? You will need to have blood tests regularly so that your health care provider can monitor your condition. Contact a health care provider if: ??? Your symptoms do not get better with treatment. ??? You are taking thyroid hormone replacement medicine and you: ? Sweat a lot. ? Have tremors. ? Feel anxious. ? Lose weight rapidly. ? Cannot tolerate heat. ? Have emotional swings. ? Have diarrhea. ? Feel weak. Get help right away if: ??? You have chest pain. ??? You have an irregular heartbeat. ??? You have a rapid heartbeat. ??? You have difficulty breathing. These symptoms may be an emergency. Get help right away. Call 911. ??? Do not wait to see if the symptoms will go away. ??? Do not drive yourself to the hospital. Summary ??? Hypothyroidism is when the thyroid gland does not make enough of certain hormones (it is underactive). ??? When the thyroid is underactive, it produces too little of the hormones thyroxine (T4) and triiodothyronine (T3). ??? The most common cause is Gera's disease, a disease in which the body's disease-fighting system (immune system) attacks the thyroid gland. The condition can also be caused by viral infections, medicine, , or past radiation treatment to the head or neck. ??? Symptoms may include weight gain, dry skin, constipation, feeling as though you do not have energy, and not being able to tolerate cold. ??? This condition is treated with medicine to replace the thyroid hormones that your body does notmake. This information is not intended to replace advice given to you by your health care provider. Make sure you discuss any questions you have with your health care provider. Document Revised: 03/25/2022 Document Reviewed: 03/25/2022 Else[employer] Patient Education ? 2023 [employer] Diabetes Mellitus and Exercise Regular exercise is important for your health, especially if you have diabetes mellitus. Exercise is not just about losing weight. It can also help you increase muscle strength and bone density and reduce body fat and stress. This can help your (more content not included)...[facility] 03-23-2024 Hospital Discharge instructions Patient Education 03/23/2024 09:38:44 Type 2 Diabetes Mellitus, Self-Care, Adult Type 2 Diabetes Mellitus, Self-Care, Adult Caring for yourself after you have been diagnosed with type 2 diabetes (type 2 diabetes mellitus) means keeping your blood sugar (glucose) under control with a balance of: Nutrition. Exercise. Lifestyle changes. Medicines or insulin, if needed. Support from your team of health care providers and others. What are the risks? Having type 2 diabetes can put you at risk for other long-term (chronic) conditions, such as heart disease and kidney disease. Your health care provider may prescribe medicines to help prevent complications from diabetes. How to monitor your blood glucose Check your blood glucose every day or as often as told by your health care provider. Have your A1C (hemoglobin A1C) level checked two or more times a year, or as often as told by your health care provider. Your health care provider will set personalized treatment goals for you. Generally, the goal of treatment is to maintain the following blood glucose levels: ?Before meals: 80 130 mg/dL (4.4 7.2 mmol/L). ?After meals: below 180 mg/dL (10 mmol/L). ?A1C level: less than 7%. How to manage hyperglycemia and hypoglycemia Hyperglycemia symptoms Hyperglycemia, also called high blood glucose, occurs when blood glucose is too high. Make sure youknow the early signs of hyperglycemia, such as: Increased thirst. Hunger. Feeling very tired. Needing to urinate more often than usual. Blurry vision. Hypoglycemia symptoms Hypoglycemia, also called low blood glucose, occurs with a blood glucose level at or below 70 mg/dL(3.9 mmol/L). Diabetes medicines lower your blood glucose and can cause hypoglycemia. The risk for hypoglycemia increases during or after exercise, during sleep, during illness, and when skipping meals or not eating for a long time (fasting). It is important to know the symptoms of hypoglycemia and treat it right away. Always have a 79-gmrksnxdc-[id number] carbohydrate snack with you to treat low blood glucose. Family members and close friends should also know the symptoms and understand how to treat hypoglycemia, in case you are not able to treat yourself. Symptoms may include: Hunger. Anxiety. Sweating and feeling clammy. Dizziness or feeling light-headed. Sleepiness. Increased heart rate. Irritability. Tingling or numbness around the mouth, lips, or tongue. Restless sleep. Severe hypoglycemia is when your blood glucose level is at or below 54 mg/dL (3 mmol/L). Severe hypoglycemia is an emergency. Do not wait to see if the symptoms will go away. Get medical help right away. Call your local emergency services (911 in the [place] Do not drive yourself to the hospital. If you have severe hypoglycemia and you cannot eat or drink, you may need glucagon. A family memberor close friend should learn how to check your blood glucose and how to give you glucagon. Ask yourhealth care provider if you need to have an emergency glucagon kit available. Follow these instructions at home: Medicines Take prescribed insulin or diabetes medicines as told by your health care provider. Do not run out of insulin or other diabetes medicines. Plan ahead so you always have these available. If you use insulin, adjust your dosage based on your physical activity and what foods you eat. Yourhealth care provider will tell you how to adjust your dosage. Take aggw-oiw-lgcdiuo and prescription medicines only as told by your health care provider. Eating and drinking What you eat and drink affects your blood glucose and your insulin dosage. Making good choices helps to control your diabetes and prevent other health problems. A healthy meal plan includes eating lean proteins, complex carbohydrates, fresh fruits and vegetables, low-fat dairy products, and healthy fats. Make an appointment to see a registered dietitian to help you create an eating plan that is right for you. Make sure that you: Follow instructions from your health care provider about eating or drinking restrictions. Drink enough fluid to keep your urine pale yellow. Keep a record of the carbohydrates that you eat. Do this by reading food labels and learning the standard serving sizes of foods. Follow your sick-day plan whenever you cannot eat or drink as usual. Make this plan in advance withyour health care provider. Activity Stay active. Exercise regularly, as told by your health care provider. This may include: ?Stretching and doing strength exercises, such as yoga or weight lifting, two or more times a week. ?Doing 150 minutes or more of moderate-intensity or vigorous-intensity exercise each week. This could be brisk walking, biking, or water aerobics. ?Spread out your activity over 3 or more days of the week. ?Do not go more than 2 days in a row without doing some kind of physical activity. When you start a new exercise or activity, work with your health care provider to adjust your insulin, medicines, or food intake as needed. Lifestyle Do not use any products that contain nicotine or tobacco. These products include cigarettes, chewing tobacco, and vaping devices, such as e-cigarettes. If you need help quitting, ask your health careprovider. If you drink alcohol and your health care provider says that it is safe for you: ?Limit how much you have to: ?0 1 drink a day for women who are not . ?0 2 drinks a day for men. ?Know how much alcohol is in your drink. In the [place] one drink equals one 12 oz bottle of beer (355 mL), one 5 oz glass of wine (148 mL), or one 1 oz glass of hard liquor (44 mL). Learn to manage stress. If you need help with this, ask your health care provider. Take care of your body Keep your immunizations up to date. In addition to getting vaccinations as told by your health careprovider, it is recommended that you get vaccinated against the following illnesses: ?The flu (influenza). Get a flu shot every year. ?Pneumonia. ?Hepatitis B. Schedule an eye exam soon after your diagnosis, and then one time every year after that. Check your skin and feet every day for cuts, bruises, redness, blisters, or sores. Schedule a foot exam with your health care provider once every year. [place] your teeth and gums two times a day, and floss one or more times a day. Visit your dentist one or more times every 6 months. Maintain a healthy weight. General instructions Share your diabetes management plan with people in your workplace, school, and household. Carry a medical alert card or wear medical alert jewelry. Keep all follow-up visits. This is important. Questions to ask your health care provider Should I meet with a certified diabetes care and education instructor? Where can I find a support group for people with diabetes? Where to find more information For help and guidance and for more information about diabetes, please visit: [place] [employer] (ADA): www.diabetes.org [place] [employer] and Education Specialists (ADCES): www.diabeteseducator.org International Diabetes Federation (IDF): www.idf.org Summary Caring for yourself after you have been diagnosed with type 2 diabetes (type 2 diabetes mellitus) means keeping your blood sugar (glucose) under control with a balance of nutrition, exercise, lifestyle changes, and medicine. Check your blood glucose every day, as often as told by your health care provider. Having diabetes can put you at risk for other long-term (chronic) conditions, such as heart diseaseand kidney disease. Your health care provider may prescribe medicines to help prevent complicationsfrom diabetes. Share your diabetes management plan with people in your workplace, school, and household. Keep all follow-up visits. This is important. This information is not intended to replace advice given to you by your health care provider. Make sure you discuss any questions you have with your health care provider. Document Revised: 08/21/2021 Document Reviewed: 08/21/2021 [employer] Patient Education 2023 [employer]. 03/23/2024 09:38:42 Hypertension, Adult Hypertension, Adult High blood pressure (hypertension) is when the force of blood pumping through the arteries is too strong. The arteries are the blood vessels that carry blood from the heart throughout the body. Hypertension forces the heart to work harder to pump blood and may cause arteries to become narrow or stiff. Untreated or uncontrolled hypertension can lead to a heart attack, heart failure, a stroke, kidney disease, and other problems. A blood pressure reading consists of a higher number over a lower number. Ideally, your blood pressure should be below 120/80. The first ( top ) number is called the systolic pressure. It is a measure of the pressure in your arteries as your heart beats. The second ( bottom ) number is called the diastolic pressure. It is a measure of the pressure in your arteries as the heart relaxes. What are the causes? The exact cause of this condition is not known. There are some conditions that result in high bloodpressure. What increases the risk? Certain factors may make you more likely to develop high blood pressure. Some of these risk factorsare under your control, including: Smoking. Not getting enough exercise or physical activity. Being overweight. Having too much fat, sugar, calories, or salt (sodium) in your diet. Drinking too much alcohol. Other risk factors include: Having a personal history of heart disease, diabetes, high cholesterol, or kidney disease. Stress. Having a family history of high blood pressure and high cholesterol. Having obstructive sleep apnea. Age. The risk increases with age. What are the signs or symptoms? High blood pressure may not cause symptoms. Very high blood pressure (hypertensive crisis) may cause: Headache. Fast or irregular heartbeats (palpitations). Shortness of breath. Nosebleed. Nausea and vomiting. Vision changes. Severe chest pain, dizziness, and seizures. How is this diagnosed? This condition is diagnosed by measuring your blood pressure while you are seated, with your arm resting on a flat surface, your legs uncrossed, and your feet flat on the floor. The cuff of the bloodpressure monitor will be placed directly against the skin of your upper arm at the level of your heart. Blood pressure should be measured at least twice using the same arm. Certain conditions can cause a difference in blood pressure between your right and left arms. If you have a high blood pressure reading during one visit or you have normal blood pressure with other risk factors, you may be asked to: Return on a different day to have your blood pressure checked again. Monitor your blood pressure at home for 1 week or longer. If you are diagnosed with hypertension, you may have other blood or imaging tests to help your health care provider understand your overall risk for other conditions. How is this treated? This condition is treated by making healthy lifestyle changes, such as eating healthy foods, exercising more, and reducing your alcohol intake. You may be referred for counseling on a healthy diet and physical activity. Your health care provider may prescribe medicine if lifestyle changes are not enough to get your blood pressure under control and if: Your systolic blood pressure is above 130. Your diastolic blood pressure is above 80. Your personal target blood pressure may vary depending on your medical conditions, your age, and other factors. Follow these instructions at home: Eating and drinking Eat a diet that is high in fiber and potassium, and low in sodium, added sugar, and fat. An exampleof this eating plan is called the DASH diet. DASH stands for Dietary Approaches to Stop Hypertension. To eat this way: ?Eat plenty of fresh fruits and vegetables. Try to fill one half of your plate at each meal with fruits and vegetables. ?Eat whole grains, such as whole-wheat pasta, brown rice, or whole-grain bread. Fill about one fourth of your plate with whole grains. ?Eat or drink low-fat dairy products, such as skim milk or low-fat yogurt. ?Avoid fatty cuts of meat, processed or cured meats, and poultry with skin. Fill about one fourth of your plate with lean proteins, such as fish, chicken without skin, beans, eggs, or tofu. ?Avoid pre-made and processed foods. These tend to be higher in sodium, added sugar, and fat. Reduce your daily sodium intake. Many people with hypertension should eat less than 1,500 mg of sodium a day. Do not drink alcohol if: ?Your health care provider tells you not to drink. ?You are , may be , or are planning to become . If you drink alcohol: ?Limit how much you have to: ?0 1 drink a day for women. ?0 2 drinks a day for men. ?Know how much alcohol is in your drink. In the [place] one drink equals one 12 oz bottle of beer (355 mL), one 5 oz glass of wine (148 mL), or one 1 oz glass of hard liquor (44 mL). Lifestyle Work with your health care provider to maintain a healthy body weight or to lose weight. Ask what an ideal weight is for you. Get at least 30 minutes of exercise that causes your heart to beat faster (aerobic exercise) most days of the week. Activities may include walking, swimming, or biking. Include exercise to strengthen your muscles (resistance exercise), such as Pilates or lifting weights, as part of your weekly exercise routine. Try to do these types of exercises for 30 minutes at least 3 days a week. Do not use any products that contain nicotine or tobacco. These products include cigarettes, chewing tobacco, and vaping devices, such as e-cigarettes. If you need help quitting, ask your health careprovider. Monitor your blood pressure at home as told by your health care provider. Keep all follow-up visits. This is important. Medicines Take zxdp-uld-tugqpgi and prescription medicines only as told by your health care provider. Follow directions carefully. Blood pressure medicines must be taken as prescribed. Do not skip doses of blood pressure medicine. Doing this puts you at risk for problems and can makethe medicine less effective. Ask your health care provider about side effects or reactions to medicines that you should watch for. Contact a health care provider if you: Think you are having a reaction to a medicine you are taking. Have headaches that keep coming back (recurring). Feel dizzy. Have swelling in your ankles. Have trouble with your vision. Get help right away if you: Develop a severe headache or confusion. Have unusual weakness or numbness. Feel faint. Have severe pain in your chest or abdomen. Vomit repeatedly. Have trouble breathing. These symptoms may be an emergency. Get help right away. Call 911. Do not wait to see if the symptoms will go away. Do not drive yourself to the hospital. Summary Hypertension is when the force of blood pumping through your arteries is too strong. If this condition is not controlled, it may put you at risk for serious complications. Your personal target blood pressure may vary depending on your medical conditions, your age, and other factors. For most people, a normal blood pressure is less than 120/80. Hypertension is treated with lifestyle changes, medicines, or a combination of both. Lifestyle changes include losing weight, eating a healthy, low-sodium diet, exercising more, and limiting alcohol. This information is not intended to replace advice given to you by your health care provider. Make sure you discuss any questions you have with your health care provider. Document Revised: 01/28/2022 Document Reviewed: 01/28/2022 [employer] Patient Education 2023 [employer]. 03/23/2024 09:38:41 High Cholesterol High Cholesterol High cholesterol is a condition in which the blood has high levels of a white, waxy substance similar to fat (cholesterol). The liver makes all the cholesterol that the body needs. The human body needs small amounts of cholesterol to help build cells. A person gets extra or excess cholesterol from the food that he or she eats. The blood carries cholesterol from the liver to the rest of the body. If you have high cholesterol,deposits (plaques) may build up on the stern of your arteries. Arteries are the blood vessels that carry blood away from your heart. These plaques make the arteries narrow and stiff. Cholesterol plaques increase your risk for heart attack and stroke. Work with your health care provider to keep your cholesterol levels in a healthy range. What increases the risk? The following factors may make you more likely to develop this condition: Eating foods that are high in animal fat (saturated fat) or cholesterol. Being overweight. Not getting enough exercise. A family history of high cholesterol (familial hypercholesterolemia). Use of tobacco products. Having diabetes. What are the signs or symptoms? In most cases, high cholesterol does not usually cause any symptoms. In severe cases, very high cholesterol levels can cause: Fatty bumps under the skin (xanthomas). A white or simons ring around the black center (pupil) of the eye. How is this diagnosed? This condition may be diagnosed based on the results of a blood test. If you are older than 20 years of age, your health care provider may check your cholesterol levels every 4 6 years. You may be checked more often if you have high cholesterol or other risk factors for heart disease. The blood test for cholesterol measures: Bad cholesterol, or LDL cholesterol. This is the main type of cholesterol that causes heart disease. The desired level is less than 100 mg/dL (2.59 mmol/L). Good cholesterol, or HDL cholesterol. HDL helps protect against heart disease by cleaning the arteries and carrying the LDL to the liver for processing. The desired level for HDL is 60 mg/dL (1.55 mmol/L) or higher. Triglycerides. These are fats that your body can store or burn for energy. The desired level is less than 150 mg/dL (1.69 mmol/L). Total cholesterol. This measures the total amount of cholesterol in your blood and includes LDL, HDL, and triglycerides. The desired level is less than 200 mg/dL (5.17 mmol/L). How is this treated? Treatment for high cholesterol starts with lifestyle changes, such as diet and exercise. Diet changes. You may be asked to eat foods that have more fiber and less saturated fats or added sugar. Lifestyle changes. These may include regular exercise, maintaining a healthy weight, and quitting use of tobacco products. Medicines. These are given when diet and lifestyle changes have not worked. You may be prescribed astatin medicine to help lower your cholesterol levels. Follow these instructions at home: Eating and drinking Eat a healthy, balanced diet. This diet includes: ? Daily servings of a variety of fresh, frozen, or canned fruits and vegetables. ?Daily servings of whole grain foods that are rich in fiber. ?Foods that are low in saturated fats and trans fats. These include poultry and fish without skin, lean cuts of meat, and low-fat dairy products. ?A variety of fish, especially oily fish that contain omega-3 fatty acids. Aim to eat fish at least2 times a week. Avoid foods and drinks that have added sugar. Use healthy cooking methods, such as roasting, grilling, broiling, baking, poaching, steaming, and stir-frying. Do not gresham your food except for stir-frying. If you drink alcohol: ?Limit how much you have to: ?0 1 drink a day for women who are not . ?0 2 drinks a day for men. ?Know how much alcohol is in a drink. In the [place] one drink equals one 12 oz bottle of beer (355 mL), one 5 oz glass of wine (148 mL), or one 1 oz glass of hard liquor (44 mL). Lifestyle Get regular exercise. Aim to exercise for a total of 150 minutes a week. Increase your activity level by doing activities such as gardening, walking, and taking the stairs. Do not use any products that contain nicotine or tobacco. These products include cigarettes, chewing tobacco, and vaping devices, such as e-cigarettes. If you need help quitting, ask your health careprovider. General instructions Take sovf-qna-fiqmnyb and prescription medicines only as told by your health care provider. Keep all follow-up visits. This is important. Where to find more information [place] [employer]: www.heart.org National Heart, Lung, and Blood [place]: www.nhlbi.nih.gov Contact a health care provider if: You have trouble achieving or maintaining a healthy diet or weight. You are starting an exercise program. You are unable to stop smoking. Get help right away if: You have chest pain. You have trouble breathing. You have discomfort or pain in your jaw, neck, back, shoulder, or arm. You have any symptoms of a stroke. BE FAST is an easy way to remember the main warning signs of astroke: ?B - Balance. Signs are dizziness, sudden trouble walking, or loss of balance. ?E - Eyes. Signs are trouble seeing or a sudden change in vision. ?F - Face. Signs are sudden weakness or numbness of the face, or the face or eyelid drooping on oneside. ?A - Arms. Signs are weakness or numbness in an arm. This happens suddenly and usually on one side of the body. ?S - Speech. Signs are sudden trouble speaking, slurred speech, or trouble understanding what people say. ?T - Time. Time to call emergency services. Write down what time symptoms started. You have other signs of a stroke, such as: ?A sudden, severe headache with no known cause. ?Nausea or vomiting. ?Seizure. These symptoms may represent a serious problem that is an emergency. Do not wait to see if the symptoms will go away. Get medical help right away. Call your local emergency services (911 in the [place] Do not drive yourself to the hospital. Summary Cholesterol plaques increase your risk for heart attack and stroke. Work with your health care provider to keep your cholesterol levels in a healthy range. Eat a healthy, balanced diet, get regular exercise, and maintain a healthy weight. Do not use any products that contain nicotine or tobacco. These products include cigarettes, chewing tobacco, and vaping devices, such as e-cigarettes. Get help right away if you have any symptoms of a stroke. This information is not intended to replace advice given to you by your health care provider. Make sure you discuss any questions you have with your health care provider. Document Revised: 10/24/2022 Document Reviewed: 05/27/2021 [employer] Patient Education 2023 [employer]. 03/23/2024 09:38:40 Chronic Kidney Disease, Adult Chronic Kidney Disease, Adult Chronic kidney disease (CKD) occurs when the kidneys are slowly and permanently damaged over a longperiod of time. The kidneys are a pair of organs that do many important jobs in the body, including: Removing waste and extra fluid from the blood to make urine. Making hormones that maintain the amount of fluid in tissues and blood vessels. Maintaining the right amount of fluids and chemicals in the body. A small amount of kidney damage may not cause problems, but a large amount of damage may make it hard or impossible for the kidneys to work right. Steps must be taken to slow kidney damage or to stopit from getting worse. If steps are not taken, the kidneys may stop working permanently (end-stage renal disease, or ESRD). Most of the time, CKD does not go away, but it can often be controlled. People who have CKD are usually able to live full lives. What are the causes? The most common causes of this condition are diabetes and high blood pressure (hypertension). Other causes include: Cardiovascular diseases. These affect the heart and blood vessels. Kidney diseases. These include: ?Glomerulonephritis, or inflammation of the tiny filters in the kidneys. ?Interstitial nephritis. This is swelling of the small tubes of the kidneys and of the surrounding structures. ?Polycystic kidney disease, in which clusters of fluid-filled sacs form within the kidneys. ?Renal vascular disease. This includes disorders that affect the arteries and veins of the kidneys. Diseases that affect the body's defense system (immune system). A problem with urine flow. This may be caused by: ?Kidney stones. ?Cancer. ?An enlarged prostate, in males. A kidney infection or urinary tract infection (UTI) that keeps coming back. Vasculitis. This is swelling or inflammation of the blood vessels. What increases the risk? Your chances of having kidney disease increase with age. The following factors may make you more likely to develop this condition: A family history of kidney disease or kidney failure. Kidney failure means the kidneys can no longer work right. Certain genetic diseases. Taking medicines often that are damaging to the kidneys. Being around or being in contact with toxic substances. Obesity. A history of tobacco use. What are the signs or symptoms? Symptoms of this condition include: Feeling very tired (lethargic) and having less energy. Swelling, or edema, of the face, legs, ankles, or feet. Nausea or vomiting, or loss of appetite. Confusion or trouble concentrating. Muscle twitches and cramps, especially in the legs. Dry, itchy skin. A metallic taste in the mouth. Producing less urine, or producing more urine (especially at night). Shortness of breath. Trouble sleeping. CKD may also result in not having enough red blood cells or hemoglobin in the blood (anemia) or having weak bones (bone disease). Symptoms develop slowly and may not be obvious until the kidney damage becomes severe. It is possible to have kidney disease for years without having symptoms. How is this diagnosed? This condition may be diagnosed based on: Blood tests. Urine tests. Imaging tests, such as an ultrasound or a CT scan. A kidney biopsy. This involves removing a sample of kidney tissue to be looked at under a microscope. Results from these tests will help to determine how serious the CKD is. How is this treated? There is no cure for most cases of this condition, but treatment usually relieves symptoms and prevents or slows the worsening of the disease. Treatment may include: Diet changes, which may require you to avoid alcohol and foods that are high in salt, potassium, phosphorous, and protein. Medicines. These may: ?Lower blood pressure. ?Control blood sugar (glucose). ?Relieve anemia. ?Relieve swelling. ?Protect your bones. ?Improve the balance of salts and minerals in your blood (electrolytes). Dialysis, which is a type of treatment that removes toxic waste from the body. It may be needed if you have kidney failure. Managing any other conditions that are causing your CKD or making it worse. Follow these instructions at home: Medicines Take wvgx-mbn-[id number] and prescription medicines only as told by your health care provider. The amount of some medicines that you take may need to be changed. Do not take any new medicines unless approved by your health care provider. Many medicines can makekidney damage worse. Do not take any vitamin and mineral supplements unless approved by your health care provider. Many nutritional supplements can make kidney damage worse. Lifestyle Do not use any products that contain nicotine or tobacco, such as cigarettes, e- cigarettes, and chewing tobacco. If you need help quitting, ask your health care provider. If you drink alcohol: ?Limit how much you use to: ?0 1 drink a day for women who are not . ?0 2 drinks a day for men. ?Know how much alcohol is in your drink. In the [place] one drink equals one 12 oz bottle of beer (355 mL), one 5 oz glass of wine (148 mL), or one 1 oz glass of hard liquor (44 mL). Maintain a healthy weight. If you need help, ask your health care provider. General instructions Follow instructions from your health care provider about eating or drinking restrictions, includingany prescribed diet. Track your blood pressure at home. Report changes in your blood pressure as told. If you are being treated for diabetes, track your blood glucose levels as told. Start or continue an exercise plan. Exercise at least 30 minutes a day, 5 days a week. Keep your immunizations up to date as told. Keep all follow-up visits. This is important. Where to find more information [place] [employer]: www.aakp.org National Kidney Foundation: www.kidney.org [employer] [employer]: www.akfinc.org Life Options: www.lifeoptions.org Kidney School: www.kidneyschool.org Contact a health care provider if: Your symptoms get worse. You develop new symptoms. Get help right away if: You develop symptoms of ESRD. These include: ?Headaches. ?Numbness in your hands or feet. ?Easy bruising. ?Frequent hiccups. ?Chest pain. ?Shortness of breath. ?Lack of menstrual periods, in women. You have a fever. You are producing less urine than usual. You have pain or bleeding when you urinate or when you have a bowel movement. These symptoms may represent a serious problem that is an emergency. Do not wait to see if the symptoms will go away. Get medical help right away. Call your local emergency services (911 in the [place] Do not drive yourself to the hospital. Summary Chronic kidney disease (CKD) occurs when the kidneys become damaged slowly over a long period of time. The most common causes of this condition are diabetes and high blood pressure (hypertension). There is no cure for most cases of CKD, but treatment usually relieves symptoms and prevents or slows the worsening of the disease. Treatment may include a combination of lifestyle changes, medicines, and dialysis. This information is not intended to replace advice given to you by your health care provider. Make sure you discuss any questions you have with your health care provider. Document Revised: 06/27/2020 Document Reviewed: 06/27/2020 [employer] Patient Education 2023 [employer]. Follow Up Care 12/01/2023 08:44:15 With:Lupillo MORA, [employer] HEADER-BRANDY, Loreta Wan Address: [address] [place] [phone] When:Within 4 Month(s) Comments:chronic care [facility] [place] 12-18-2024 NotePatient Education Cardiovascular Hypertension, Adult High blood pressure (hypertension) is when the force of blood pumping through the arteries is too strong. The arteries are the blood vessels that carry blood from the heart throughout the body. Hypertension forces the heart to work harder to pump blood and may cause arteries to become narrow or stiff. Untreated or uncontrolled hypertension can lead to a heart attack, heart failure, a stroke, kidney disease, and other problems. A blood pressure reading consists of a higher number over a lower number. Ideally, your blood pressure should be below 120/80. The first ( top ) number is called the systolic pressure. It is a measure of the pressure in your arteries as your heart beats. The second ( bottom ) number is called the diastolic pressure. It is a measure of the pressure in your arteries as the heart relaxes. What are the causes? The exact cause of this condition is not known. There are some conditions that result in high bloodpressure. What increases the risk? Certain factors may make you more likely to develop high blood pressure. Some of these risk factorsare under your control, including: ??? Smoking. ??? Not getting enough exercise or physical activity. ??? Being overweight. ??? Having too much fat, sugar, calories, or salt (sodium) in your diet. ??? Drinking too much alcohol. Other risk factors include: ??? Having a personal history of heart disease, diabetes, high cholesterol, or kidney disease. ??? Stress. ??? Having a family history of high blood pressure and high cholesterol. ??? Having obstructive sleep apnea. ??? Age. The risk increases with age. What are the signs or symptoms? High blood pressure may not cause symptoms. Very high blood pressure (hypertensive crisis) may cause: ??? Headache. ??? Fast or irregular heartbeats (palpitations). ??? Shortness of breath. ??? Nosebleed. ??? Nausea and vomiting. ??? Vision changes. ??? Severe chest pain, dizziness, and seizures. How is this diagnosed? This condition is diagnosed by measuring your blood pressure while you are seated, with your arm resting on a flat surface, your legs uncrossed, and your feet flat on the floor. The cuff of the bloodpressure monitor will be placed directly against the skin of your upper arm at the level of your heart. Blood pressure should be measured at least twice using the same arm. Certain conditions can cause a difference in blood pressure between your right and left arms. If you have a high blood pressure reading during one visit or you have normal blood pressure with other risk factors, you may be asked to: ??? Return on a different day to have your blood pressure checked again. ??? Monitor your blood pressure at home for 1 week or longer. If you are diagnosed with hypertension, you may have other blood or imaging tests to help your health care provider understand your overall risk for other conditions. How is this treated? This condition is treated by making healthy lifestyle changes, such as eating healthy foods, exercising more, and reducing your alcohol intake. You may be referred for counseling on a healthy diet and physical activity. Your health care provider may prescribe medicine if lifestyle changes are not enough to get your blood pressure under control and if: ??? Your systolic blood pressure is above 130. ??? Your diastolic blood pressure is above 80. Your personal target blood pressure may vary depending on your medical conditions, your age, and other factors. Follow these instructions at home: Eating and drinking ??? Eat a diet that is high in fiber and potassium, and low in sodium, added sugar, and fat. An example of this eating plan is called the DASH diet. DASH stands for Dietary Approaches to Stop Hypertension. To eat this way: ? Eat plenty of fresh fruits and vegetables. Try to fill one half of your plate at each meal with fruits and vegetables. ? Eat whole grains, such as whole-wheat pasta, brown rice, or whole-grain bread. Fill about one fourth of your plate with whole grains. ? Eat or drink low-fat dairy products, such as skim milk or low-fat yogurt. ? Avoid fatty cuts of meat, processed or cured meats, and poultry with skin. Fill about one fourth of your plate with lean proteins, such as fish, chicken without skin, beans, eggs, or tofu. ? Avoid pre-made and processed foods. These tend to be higher in sodium, added sugar, and fat. ??? Reduce your daily sodium intake. Many people with hypertension should eat less than 1,500 mg ofsodium a day. ??? Do not drink alcohol if: ? Your health care provider tells you not to drink. ? You are , may be , or are planning to become . ??? If you drink alcohol: ? Limit how much you have to: ? 0?1 drink a day for women. ? 0?2 drinks a day for men. ? Know how much alcohol is in your drink. In the [place] one drink equals one 12 oz bottle (more content not included)...[facility]12-03-2024 Evaluation note* Diagnosis Onset Date Resolution Status Admit Date Arthritis of carpometacarpal (CMC) joint of right thumb acute Decem 2023 8:21am Arthritis of carpometacarpal (CMC) joint of right thumb acute Janua ry 2024 9:40am Right hand pain acute April 072024 9:40am [facility] Work Phone: [phone] Hospital Discharge instructions Patient Education 02/01/2024 14:06:40 Managing Anxiety, Adult Managing Anxiety, Adult After being diagnosed with anxiety, you may be relieved to know why you have felt or behaved a certain way. You may also feel overwhelmed about the treatment ahead and what it will mean for your life. With care and support, you can manage your anxiety. How to manage lifestyle changes Understanding the difference between stress and anxiety Although stress can play a role in anxiety, it is not the same as anxiety. Stress is your body's reaction to life changes and events, both good and bad. Stress is often caused by something external, such as a deadline, test, or competition. It normally goes away after the event has ended and will last just a few hours. But, stress can be ongoing and can lead to more than just stress. Anxiety is caused by something internal, such as imagining a terrible outcome or worrying that something will go wrong that will greatly upset you. Anxiety often does not go away even after the eventis over, and it can become a long-term (chronic) worry. Lowering stress and anxiety Talk with your health care provider or a counselor to learn more about lowering anxiety and stress.They may suggest tension-reduction techniques, such as: Music. Spend time creating or listening to music that you enjoy and that inspires you. Mindfulness-based meditation. Practice being aware of your normal breaths while not trying to control your breathing. It can be done while sitting or walking. Centering prayer. Focus on a word, phrase, or sacred image that means something to you and brings you peace. Deep breathing. Expand your stomach and inhale slowly through your nose. Hold your breath for 3 5 seconds. Then breathe out slowly, letting your stomach muscles relax. Self-talk. Learn to notice and spot thought patterns that lead to anxiety reactions. Change those patterns to thoughts that feel peaceful. Muscle relaxation. Take time to tense muscles and then relax them. Choose a tension-reduction technique that fits your lifestyle and personality. These techniques take time and practice. Set aside 5 15 minutes a day to do them. Specialized therapists can offer counseling and training in these techniques. The training to help with anxiety may be covered by some insurance plans. Other things you can do to manage stress and anxiety include: Keeping a stress diary. This can help you learn what triggers your reaction and then learn ways to manage your response. Thinking about how you react to certain situations. You may not be able to control everything, but you can control your response. Making time for activities that help you relax and not feeling guilty about spending your time in this way. Doing visual imagery. This involves imagining or creating mental pictures to help you relax. Practicing yoga. Through yoga poses, you can lower tension and relax. Medicines Medicines for anxiety include: Antidepressant medicines. These are usually prescribed for long-term daily control. Anti-anxiety medicines. These may be added in severe cases, especially when panic attacks occur. When used together, medicines, psychotherapy, and tension-reduction techniques may be the most effective treatment. Relationships Relationships can play a big part in helping you recover. Spend more time connecting with trusted friends and family members. Think about going to couples counseling if you have a partner, taking family education classes, or going to family therapy. Therapy can help you and others better understandyour anxiety. How to recognize changes in your anxiety Everyone responds differently to treatment for anxiety. Recovery from anxiety happens when symptomslessen and stop interfering with your daily life at home or work. This may mean that you will startto: Have better concentration and focus. Worry will interfere less in your daily thinking. Sleep better. Be less irritable. Have more energy. Have improved memory. Try to recognize when your condition is getting worse. Contact your provider if your symptoms interfere with home or work and you feel like your condition is not improving. Follow these instructions at home: Activity Exercise. Adults should: ?Exercise for at least 150 minutes each week. The exercise should increase your heart rate and makeyou sweat (moderate-intensity exercise). ?Do strengthening exercises at least twice a week. Get the right amount and quality of sleep. Most adults need 7 9 hours of sleep each night. Lifestyle Eat a healthy diet that includes plenty of vegetables, fruits, whole grains, low-fat dairy products, and lean protein. ?Do not eat a lot of foods that are high in fats, added sugars, or salt (sodium). Make choices that simplify your life. Do not use any products that contain nicotine or tobacco. These products include cigarettes, chewing tobacco, and vaping devices, such as e-cigarettes. If you need help quitting, ask your provider. Avoid caffeine, alcohol, and certain oixx-wtx-enjfjvj cold medicines. These may make you feel worse. Ask your pharmacist which medicines to avoid. General instructions Take peli-ots-xsxrudv and prescription medicines only as told by your provider. Keep all follow-up visits. This is to make sure you are managing your anxiety well or if you need more support. Where to find support You can get help and support from: Self-help groups. Online and community organizations. A trusted spiritual leader. Couples counseling. Family education classes. Family therapy. Where to find more information You may find that joining a support group helps you deal with your anxiety. The following sources can help you find counselors or support groups near you: Mental Health [place]: mentalhealthamerica.net Anxiety and Depression Association of [place] (ADAA): adaa.org National [place] [employer] Mental Illness (TAMI): tami.org Contact a health care provider if: You have a hard time staying focused or finishing tasks. You spend many hours a day feeling worried about everyday life. You are very tired because you cannot stop worrying. You start to have headaches or often feel tense. You have chronic nausea or diarrhea. Get help right away if: Your heart feels like it is racing. You have shortness of breath. You have thoughts of hurting yourself or others. Get help right away if you feel like you may hurt yourself or others, or have thoughts about takingyour own life. Go to your nearest emergency room or: Call 911. Call the National Suicide Prevention Lifeline at or 842. This is open 24 hours a day. Text the Crisis Text Line at 364197. This information is not intended to replace advice given to you by your health care provider. Make sure you discuss any questions you have with your health care provider. Document Revised: 12/30/2022 Document Reviewed: 07/14/2021 [employer] Patient Education 2023 [employer] 02/01/2024 14:06:37 Managing Depression, Adult Managing Depression, Adult Depression is a mental health condition that affects your thoughts, feelings, and actions. Being diagnosed with depression can bring you relief if you did not know why you have felt or behaved a certain way. It could also leave you feeling overwhelmed. Finding ways to manage your symptoms can help you feel more positive about your future. How to manage lifestyle changes Being depressed is difficult. Depression can increase the level of everyday stress. Stress can makedepression symptoms worse. You may believe your symptoms cannot be managed or will never improve. However, there are many things you can try to help manage your symptoms. There is hope. Managing stress Stress is your body's reaction to life changes and events, both good and bad. Stress can add to your feelings of depression. Learning to manage your stress can help lessen your feelings of depression. Try some of the following approaches to reducing your stress (stress reduction techniques): Listen to music that you enjoy and that inspires you. Try using a meditation boyd or take a meditation class. Develop a practice that helps you connect with your spiritual self. Walk in nature, pray, or go to a place of uatsdin. Practice deep breathing. To do this, inhale slowly through your nose. Pause at the top of your inhale for a few seconds and then exhale slowly, letting yourself relax. Repeat this three or four times. Practice yoga to help relax and work your muscles. Choose a stress reduction technique that works for you. These techniques take time and practice to develop. Set aside 5 15 minutes a day to do them. Therapists can offer training in these techniques.Do these things to help manage stress: Keep a journal. Know your limits. Set healthy boundaries for yourself and others, such as saying no when you think something is too much. Pay attention to how you react to certain situations. You may not be able to control everything, but you can change your reaction. Add humor to your life by watching funny movies or shows. Make time for activities that you enjoy and that relax you. Spend less time using electronics, especially at night before bed. The light from screens can make your brain think it is time to get up rather than go to bed. Medicines Medicines, such as antidepressants, are often a part of treatment for depression. Talk with your pharmacist or health care provider about all the medicines, supplements, and herbal products that you take, their possible side effects, and what medicines and other products are safe to take together. Make sure to report any side effects you may have to your health care provider. Relationships Your health care provider may suggest family therapy, couples therapy, or individual therapy as part of your treatment. How to recognize changes Everyone responds differently to treatment for depression. As you recover from depression, you may start to: Have more interest in doing activities. Feel more hopeful. Have more energy. Eat a more regular amount of food. Have better mental focus. It is important to recognize if your depression is not getting better or is getting worse. The symptoms you had in the beginning may return, such as: Feeling tired. Eating too much or too little. Sleeping too much or too little. Feeling restless, agitated, or hopeless. Trouble focusing or making decisions. Having unexplained aches and pains. Feeling irritable, angry, or aggressive. If you or your family members notice these symptoms coming back, let your health care provider knowright away. Follow these instructions at home: Activity Try to get some form of exercise each day, such as walking. Try yoga, mindfulness, or other stress reduction techniques. Participate in group activities if you are able. Lifestyle Get enough sleep. Cut down on or stop using caffeine, tobacco, alcohol, and any other harmful substances. Eat a healthy diet that includes plenty of vegetables, fruits, whole grains, low-fat dairy products, and lean protein. Limit foods that are high in solid fats, added sugar, or salt (sodium). General instructions Take efgk-tmx-dshulht and prescription medicines only as told by your health care provider. Keep all follow-up visits. It is important for your health care provider to check on your mood, behavior, and medicines. Your health care provider may need to make changes to your treatment. Where to find support Talking to others Friends and family members can be sources of support and guidance. Talk to trusted friends or family members about your condition. Explain your symptoms and let them know that you are working with a health care provider to treat your depression. Tell friends and family how they can help. Finances Find mental health providers that fit with your financial situation. Talk with your health care provider if you are worried about access to food, housing, or medicine. Call your insurance company to learn about your co-pays and prescription plan. Where to find more information You can find support in your area from: Anxiety and Depression Association of [place] (ADAA): adaa.org Mental Health [place]: mentalhealthamerica.net National [place] on Mental Illness: tami.org Contact a health care provider if: You stop taking your antidepressant medicines, and you have any of these symptoms: ?Nausea. ?Headache. ?Light-headedness. ?Chills and body aches. ?Not being able to sleep (insomnia). You or your friends and family think your depression is getting worse. Get help right away if: You have thoughts of hurting yourself or others. Get help right away if you feel like you may hurt yourself or others, or have thoughts about takingyour own life. Go to your nearest emergency room or: Call 911. Call the National Suicide Prevention Lifeline at or 451. This is open 24 hours a day. Text the Crisis Text Line at 341824. This information is not intended to replace advice given to you by your health care provider. Make sure you discuss any questions you have with your health care provider. Document Revised: 07/29/2022 Document Reviewed: 07/29/2022 [employer] Patient Education 2023 [employer]. Follow Up Care 12/29/2023 10:52:19 With:Lupillo MORA, APPLE PACKING HEADER-ACTIVITY THERAPIST, Loreta Wan Address: [address] [place] [phone] When: only if needed Comments:keep appt in March with [facility] [place] 10-28-2024 NotePatient Education Mental and Behavioral Health Managing Anxiety, Adult After being diagnosed with anxiety, you may be relieved to know why you have felt or behaved a certain way. You may also feel overwhelmed about the treatment ahead and what it will mean for your life. With care and support, you can manage your anxiety. How to manage lifestyle changes Understanding the difference between stress and anxiety Although stress can play a role in anxiety, it is not the same as anxiety. Stress is your body's reaction to life changes and events, both good and bad. Stress is often caused by something external, such as a deadline, test, or competition. It normally goes away after the event has ended and will last just a few hours. But, stress can be ongoing and can lead to more than just stress. Anxiety is caused by something internal, such as imagining a terrible outcome or worrying that something will go wrong that will greatly upset you. Anxiety often does not go away even after the eventis over, and it can become a long-term (chronic) worry. Lowering stress and anxiety Talk with your health care provider or a counselor to learn more about lowering anxiety and stress.They may suggest tension-reduction techniques, such as: ??? Music. Spend time creating or listening to music that you enjoy and that inspires you. ??? Mindfulness-based meditation. Practice being aware of your normal breaths while not trying to control your breathing. It can be done while sitting or walking. ??? Centering prayer. Focus on a word, phrase, or sacred image that means something to you and brings you peace. ??? Deep breathing. Expand your stomach and inhale slowly through your nose. Hold your breath for 3?5 seconds. Then breathe out slowly, letting your stomach muscles relax. ??? Self-talk. Learn to notice and spot thought patterns that lead to anxiety reactions. Change those patterns to thoughts that feel peaceful. ??? Muscle relaxation. Take time to tense muscles and then relax them. Choose a tension-reduction technique that fits your lifestyle and personality. These techniques take time and practice. Set aside 5?15 minutes a day to do them. Specialized therapists can offer counseling and training in these techniques. The training to help with anxiety may be covered by some insurance plans. Other things you can do to manage stress and anxiety include: ??? Keeping a stress diary. This can help you learn what triggers your reaction and then learn waysto manage your response. ??? Thinking about how you react to certain situations. You may not be able to control everything, but you can control your response. ??? Making time for activities that help you relax and not feeling guilty about spending your time in this way. ??? Doing visual imagery. This involves imagining or creating mental pictures to help you relax. ??? Practicing yoga. Through yoga poses, you can lower tension and relax. Medicines Medicines for anxiety include: ??? Antidepressant medicines. These are usually prescribed for long-term daily control. ??? Anti-anxiety medicines. These may be added in severe cases, especially when panic attacks occur. When used together, medicines, psychotherapy, and tension-reduction techniques may be the most effective treatment. Relationships Relationships can play a big part in helping you recover. Spend more time connecting with trusted friends and family members. Think about going to couples counseling if you have a partner, taking family education classes, or going to family therapy. Therapy can help you and others better understandyour anxiety. How to recognize changes in your anxiety Everyone responds differently to treatment for anxiety. Recovery from anxiety happens when symptomslessen and stop interfering with your daily life at home or work. This may mean that you will startto: ??? Have better concentration and focus. Worry will interfere less in your daily thinking. ??? Sleep better. ??? Be less irritable. ??? Have more energy. ??? Have improved memory. Try to recognize when your condition is getting worse. Contact your provider if your symptoms interfere with home or work and you feel like your condition is not improving. Follow these instructions at home: Activity ??? Exercise. Adults should: ? Exercise for at least 150 minutes each week. The exercise should increase your heart rate and make you sweat (moderate-intensity exercise). ? Do strengthening exercises at least twice a week. ??? Get the right amount and quality of sleep. Most adults need 7?9 hours of sleep each night. Lifestyle ??? Eat a healthy diet that includes plenty of vegetables, fruits, whole grains, low-fat dairy products, and lean protein. ? Do not eat a lot of foods that are high in fats, added sugars, or salt (sodium). ??? Make choices that simplify your life. ??? Do not use any products (more content not included)...[facility]10-06-2024 Hospital Discharge instructions Patient Education 01/10/2024 12:17:57 Managing Anxiety, Adult Managing Anxiety, Adult After being diagnosed with anxiety, you may be relieved to know why you have felt or behaved a certain way. You may also feel overwhelmed about the treatment ahead and what it will mean for your life. With care and support, you can manage your anxiety. How to manage lifestyle changes Understanding the difference between stress and anxiety Although stress can play a role in anxiety, it is not the same as anxiety. Stress is your body's reaction to life changes and events, both good and bad. Stress is often caused by something external, such as a deadline, test, or competition. It normally goes away after the event has ended and will last just a few hours. But, stress can be ongoing and can lead to more than just stress. Anxiety is caused by something internal, such as imagining a terrible outcome or worrying that something will go wrong that will greatly upset you. Anxiety often does not go away even after the eventis over, and it can become a long-term (chronic) worry. Lowering stress and anxiety Talk with your health care provider or a counselor to learn more about lowering anxiety and stress.They may suggest tension-reduction techniques, such as: Music. Spend time creating or listening to music that you enjoy and that inspires you. Mindfulness-based meditation. Practice being aware of your normal breaths while not trying to control your breathing. It can be done while sitting or walking. Centering prayer. Focus on a word, phrase, or sacred image that means something to you and brings you peace. Deep breathing. Expand your stomach and inhale slowly through your nose. Hold your breath for 3 5 seconds. Then breathe out slowly, letting your stomach muscles relax. Self-talk. Learn to notice and spot thought patterns that lead to anxiety reactions. Change those patterns to thoughts that feel peaceful. Muscle relaxation. Take time to tense muscles and then relax them. Choose a tension-reduction technique that fits your lifestyle and personality. These techniques take time and practice. Set aside 5 15 minutes a day to do them. Specialized therapists can offer counseling and training in these techniques. The training to help with anxiety may be covered by some insurance plans. Other things you can do to manage stress and anxiety include: Keeping a stress diary. This can help you learn what triggers your reaction and then learn ways to manage your response. Thinking about how you react to certain situations. You may not be able to control everything, but you can control your response. Making time for activities that help you relax and not feeling guilty about spending your time in this way. Doing visual imagery. This involves imagining or creating mental pictures to help you relax. Practicing yoga. Through yoga poses, you can lower tension and relax. Medicines Medicines for anxiety include: Antidepressant medicines. These are usually prescribed for long-term daily control. Anti-anxiety medicines. These may be added in severe cases, especially when panic attacks occur. When used together, medicines, psychotherapy, and tension-reduction techniques may be the most effective treatment. Relationships Relationships can play a big part in helping you recover. Spend more time connecting with trusted friends and family members. Think about going to couples counseling if you have a partner, taking family education classes, or going to family therapy. Therapy can help you and others better understandyour anxiety. How to recognize changes in your anxiety Everyone responds differently to treatment for anxiety. Recovery from anxiety happens when symptomslessen and stop interfering with your daily life at home or work. This may mean that you will startto: Have better concentration and focus. Worry will interfere less in your daily thinking. Sleep better. Be less irritable. Have more energy. Have improved memory. Try to recognize when your condition is getting worse. Contact your provider if your symptoms interfere with home or work and you feel like your condition is not improving. Follow these instructions at home: Activity Exercise. Adults should: ?Exercise for at least 150 minutes each week. The exercise should increase your heart rate and makeyou sweat (moderate-intensity exercise). ?Do strengthening exercises at least twice a week. Get the right amount and quality of sleep. Most adults need 7 9 hours of sleep each night. Lifestyle Eat a healthy diet that includes plenty of vegetables, fruits, whole grains, low-fat dairy products, and lean protein. ?Do not eat a lot of foods that are high in fats, added sugars, or salt (sodium). Make choices that simplify your life. Do not use any products that contain nicotine or tobacco. These products include cigarettes, chewing tobacco, and vaping devices, such as e-cigarettes. If you need help quitting, ask your provider. Avoid caffeine, alcohol, and certain vqir-tjp-bqjuubw cold medicines. These may make you feel worse. Ask your pharmacist which medicines to avoid. General instructions Take jnhc-wgr-lockvin and prescription medicines only as told by your provider. Keep all follow-up visits. This is to make sure you are managing your anxiety well or if you need more support. Where to find support You can get help and support from: Self-help groups. Online and community organizations. A trusted spiritual leader. Couples counseling. Family education classes. Family therapy. Where to find more information You may find that joining a support group helps you deal with your anxiety. The following sources can help you find counselors or support groups near you: Mental Health [place]: mentalhealthamer[place].net Anxiety and Depression Association of [place] (ADAA): adaa.org National [place] on Mental Illness (TAMI): tami.org Contact a health care provider if: You have a hard time staying focused or finishing tasks. You spend many hours a day feeling worried about everyday life. You are very tired because you cannot stop worrying. You start to have headaches or often feel tense. You have chronic nausea or diarrhea. Get help right away if: Your heart feels like it is racing. You have shortness of breath. You have thoughts of hurting yourself or others. Get help right away if you feel like you may hurt yourself or others, or have thoughts about takingyour own life. Go to your nearest emergency room or: Call 911. Call the National Suicide Prevention Lifeline at or 713. This is open 24 hours a day. Text the Crisis Text Line at 563837. This information is not intended to replace advice given to you by your health care provider. Make sure you discuss any questions you have with your health care provider. Document Revised: 12/30/2022 Document Reviewed: 07/14/2021 [employer] Patient Education 2023 [employer]. 01/10/2024 12:17:53 Managing Depression, Adult Managing Depression, Adult Depression is a mental health condition that affects your thoughts, feelings, and actions. Being diagnosed with depression can bring you relief if you did not know why you have felt or behaved a certain way. It could also leave you feeling overwhelmed. Finding ways to manage your symptoms can help you feel more positive about your future. How to manage lifestyle changes Being depressed is difficult. Depression can increase the level of everyday stress. Stress can makedepression symptoms worse. You may believe your symptoms cannot be managed or will never improve. However, there are many things you can try to help manage your symptoms. There is hope. Managing stress Stress is your body's reaction to life changes and events, both good and bad. Stress can add to your feelings of depression. Learning to manage your stress can help lessen your feelings of depression. Try some of the following approaches to reducing your stress (stress reduction techniques): Listen to music that you enjoy and that inspires you. Try using a meditation boyd or take a meditation class. Develop a practice that helps you connect with your spiritual self. Walk in nature, pray, or go to a place of uatsdin. Practice deep breathing. To do this, inhale slowly through your nose. Pause at the top of your inhale for a few seconds and then exhale slowly, letting yourself relax. Repeat this three or four times. Practice yoga to help relax and work your muscles. Choose a stress reduction technique that works for you. These techniques take time and practice to develop. Set aside 5 15 minutes a day to do them. Therapists can offer training in these techniques.Do these things to help manage stress: Keep a journal. Know your limits. Set healthy boundaries for yourself and others, such as saying no when you think something is too much. Pay attention to how you react to certain situations. You may not be able to control everything, but you can change your reaction. Add humor to your life by watching funny movies or shows. Make time for activities that you enjoy and that relax you. Spend less time using electronics, especially at night before bed. The light from screens can make your brain think it is time to get up rather than go to bed. Medicines Medicines, such as antidepressants, are often a part of treatment for depression. Talk with your pharmacist or health care provider about all the medicines, supplements, and herbal products that you take, their possible side effects, and what medicines and other products are safe to take together. Make sure to report any side effects you may have to your health care provider. Relationships Your health care provider may suggest family therapy, couples therapy, or individual therapy as part of your treatment. How to recognize changes Everyone responds differently to treatment for depression. As you recover from depression, you may start to: Have more interest in doing activities. Feel more hopeful. Have more energy. Eat a more regular amount of food. Have better mental focus. It is important to recognize if your depression is not getting better or is getting worse. The symptoms you had in the beginning may return, such as: Feeling tired. Eating too much or too little. Sleeping too much or too little. Feeling restless, agitated, or hopeless. Trouble focusing or making decisions. Having unexplained aches and pains. Feeling irritable, angry, or aggressive. If you or your family members notice these symptoms coming back, let your health care provider knowright away. Follow these instructions at home: Activity Try to get some form of exercise each day, such as walking. Try yoga, mindfulness, or other stress reduction techniques. Participate in group activities if you are able. Lifestyle Get enough sleep. Cut down on or stop using caffeine, tobacco, alcohol, and any other harmful substances. Eat a healthy diet that includes plenty of vegetables, fruits, whole grains, low-fat dairy products, and lean protein. Limit foods that are high in solid fats, added sugar, or salt (sodium). General instructions Take pefr-ydj-ibfhfnv and prescription medicines only as told by your health care provider. Keep all follow-up visits. It is important for your health care provider to check on your mood, behavior, and medicines. Your health care provider may need to make changes to your treatment. Where to find support Talking to others Friends and family members can be sources of support and guidance. Talk to trusted friends or family members about your condition. Explain your symptoms and let them know that you are working with a health care provider to treat your depression. Tell friends and family how they can help. Finances Find mental health providers that fit with your financial situation. Talk with your health care provider if you are worried about access to food, housing, or medicine. Call your insurance company to learn about your co-pays and prescription plan. Where to find more information You can find support in your area from: Anxiety and Depression Association of [place] (ADAA): adaa.org Mental Health [place]: mentalhealthamerica.net National [place] on Mental Illness: tami.org Contact a health care provider if: You stop taking your antidepressant medicines, and you have any of these symptoms: ?Nausea. ?Headache. ?Light-headedness. ?Chills and body aches. ?Not being able to sleep (insomnia). You or your friends and family think your depression is getting worse. Get help right away if: You have thoughts of hurting yourself or others. Get help right away if you feel like you may hurt yourself or others, or have thoughts about takingyour own life. Go to your nearest emergency room or: Call 911. Call the National Suicide Prevention Lifeline at or 272. This is open 24 hours a day. Text the Crisis Text Line at 574176. This information is not intended to replace advice given to you by your health care provider. Make sure you discuss any questions you have with your health care provider. Document Revised: 07/29/2022 Document Reviewed: 07/29/2022 [employer] Patient Education 2023 [employer]. Follow Up Care 01/04/2024 13:21:20 With:Art BENCH PRESS OPERATOR, Jia A. Address: When: only if needed Comments:may cancel 02/01 appt, has an appt in March with Jia Cordova CNP please keep that appt [facility] [place] 10-06-2024 NotePatient Education Mental and Behavioral Health Managing Anxiety, Adult After being diagnosed with anxiety, you may be relieved to know why you have felt or behaved a certain way. You may also feel overwhelmed about the treatment ahead and what it will mean for your life. With care and support, you can manage your anxiety. How to manage lifestyle changes Understanding the difference between stress and anxiety Although stress can play a role in anxiety, it is not the same as anxiety. Stress is your body's reaction to life changes and events, both good and bad. Stress is often caused by something external, such as a deadline, test, or competition. It normally goes away after the event has ended and will last just a few hours. But, stress can be ongoing and can lead to more than just stress. Anxiety is caused by something internal, such as imagining a terrible outcome or worrying that something will go wrong that will greatly upset you. Anxiety often does not go away even after the eventis over, and it can become a long-term (chronic) worry. Lowering stress and anxiety Talk with your health care provider or a counselor to learn more about lowering anxiety and stress.They may suggest tension-reduction techniques, such as: ? Music. Spend time creating or listening to music that you enjoy and that inspires you. ? Mindfulness-based meditation. Practice being aware of your normal breaths while not trying to control your breathing. It can be done while sitting or walking. ? Centering prayer. Focus on a word, phrase, or sacred image that means something to you and bringsyou peace. ? Deep breathing. Expand your stomach and inhale slowly through your nose. Hold your breath for 3?5seconds. Then breathe out slowly, letting your stomach muscles relax. ? Self-talk. Learn to notice and spot thought patterns that lead to anxiety reactions. Change thosepatterns to thoughts that feel peaceful. ? Muscle relaxation. Take time to tense muscles and then relax them. Choose a tension-reduction technique that fits your lifestyle and personality. These techniques take time and practice. Set aside 5?15 minutes a day to do them. Specialized therapists can offer counseling and training in these techniques. The training to help with anxiety may be covered by some insurance plans. Other things you can do to manage stress and anxiety include: ? Keeping a stress diary. This can help you learn what triggers your reaction and then learn ways to manage your response. ? Thinking about how you react to certain situations. You may not be able to control everything, but you can control your response. ? Making time for activities that help you relax and not feeling guilty about spending your time inthis way. ? Doing visual imagery. This involves imagining or creating mental pictures to help you relax. ? Practicing yoga. Through yoga poses, you can lower tension and relax. Medicines Medicines for anxiety include: ? Antidepressant medicines. These are usually prescribed for long-term daily control. ? Anti-anxiety medicines. These may be added in severe cases, especially when panic attacks occur. When used together, medicines, psychotherapy, and tension-reduction techniques may be the most effective treatment. Relationships Relationships can play a big part in helping you recover. Spend more time connecting with trusted friends and family members. Think about going to couples counseling if you have a partner, taking family education classes, or going to family therapy. Therapy can help you and others better understandyour anxiety. How to recognize changes in your anxiety Everyone responds differently to treatment for anxiety. Recovery from anxiety happens when symptomslessen and stop interfering with your daily life at home or work. This may mean that you will startto: ? Have better concentration and focus. Worry will interfere less in your daily thinking. ? Sleep better. ? Be less irritable. ? Have more energy. ? Have improved memory. Try to recognize when your condition is getting worse. Contact your provider if your symptoms interfere with home or work and you feel like your condition is not improving. Follow these instructions at home: Activity ? Exercise. Adults should: ? Exercise for at least 150 minutes each week. The exercise should increase your heart rate and make you sweat (moderate-intensity exercise). ? Do strengthening exercises at least twice a week. ? Get the right amount and quality of sleep. Most adults need 7?9 hours of sleep each night. Lifestyle ? Eat a healthy diet that includes plenty of vegetables, fruits, whole grains, low-fat dairy products, and lean protein. ? Do not eat a lot of foods that are high in fats, added sugars, or salt (sodium). ? Make choices that simplify your life. ? Do not use any products that contain nicotine or tobacco. These produ (more content not included)...[facility]09-27-2024 Hospital Discharge instructions Follow Up Care 01/01/2024 14:04:36 With:Kristian CESAR, Lottie Pak, PUL, VANITA Address: [address] [place] [address] Pulmonary Clinic (Heart & V[facility]) [place] [id number]- When:6 weeks [facility] 09-27-2024 Discharge summary Author Mckinley thomas [facility] January 01, 2024 7:15am Note Date/Time January 01, 2024 7:14am [facility] [address] [place] [id number] Discharge Summary Signed Patient: Sabina Canela MR#: [id number] : 1950 Acct:[id number] Age/Sex: 73 / F Adm Date: 4 Loc: Room: [address] [place] [address]: Mckinley Palomares MD Copies to: MD Marvin Jack PA-C~ Providers Date of Discharge: 01/01/24 Discharging Provider: Mckinley Palomares Primary Care Provider: Marvin Husain Discharge Diagnosis (1) Major depressive disorder, recurrent, severe with psychotic symptoms: Final Diagnosis Final Discharge Diagnosis: MDD Summary Hospital Course Hospital course: Ms. Canela is a 73 year old female?with a reported history of?Depression?who presents for inpatient treatment due to?hallucinations and suicidal thoughts. Reportedly, patient was admitted from [facility] because her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 services (911 in the [place] Call or text a suicide crisis helpline. Summary Suicide is when you take your own life. Suicidal feelings are thoughts about ending your own life. Promise yourself that you will not do anything bad or extreme when you have suicidal feelings. Let family, friends, teachers, or counselors know how you are feeling. Get help right away if you start making plans for how to commit suicide. This information is not intended to replace advice given to you by your health care provider. Make sure you discuss any questions you have with your health care provider. Document Revised: 10/17/2021 Document Reviewed: 08/01/2021 [employer] Patient Education 2023 [employer]. 12/29/2023 14:52:08 Managing Anxiety, Adult Managing Anxiety, Adult After being diagnosed with anxiety, you may be relieved to know why you have felt or behaved a certain way. You may also feel overwhelmed about the treatment ahead and what it will mean for your life. With care and support, you can manage your anxiety. How to manage lifestyle changes Understanding the difference between stress and anxiety Although stress can play a role in anxiety, it is not the same as anxiety. Stress is your body's reaction to life changes and events, both good and bad. Stress is often caused by something external, such as a deadline, test, or competition. It normally goes away after the event has ended and will last just a few hours. But, stress can be ongoing and can lead to more than just stress. Anxiety is caused by something internal, such as imagining a terrible outcome or worrying that something will go wrong that will greatly upset you. Anxiety often does not go away even after the eventis over, and it can become a long-term (chronic) worry. Lowering stress and anxiety Talk with your health care provider or a counselor to learn more about lowering anxiety and stress.They may suggest tension-reduction techniques, such as: Music. Spend time creating or listening to music that you enjoy and that inspires you. Mindfulness-based meditation. Practice being aware of your normal breaths while not trying to control your breathing. It can be done while sitting or walking. Centering prayer. Focus on a word, phrase, or sacred image that means something to you and brings you peace. Deep breathing. Expand your stomach and inhale slowly through your nose. Hold your breath for 3 5 seconds. Then breathe out slowly, letting your stomach muscles relax. Self-talk. Learn to notice and spot thought patterns that lead to anxiety reactions. Change those patterns to thoughts that feel peaceful. Muscle relaxation. Take time to tense muscles and then relax them. Choose a tension-reduction technique that fits your lifestyle and personality. These techniques take time and practice. Set aside 5 15 minutes a day to do them. Specialized therapists can offer counseling and training in these techniques. The training to help with anxiety may be covered by some insurance plans. Other things you can do to manage stress and anxiety include: Keeping a stress diary. This can help you learn what triggers your reaction and then learn ways to manage your response. Thinking about how you react to certain situations. You may not be able to control everything, but you can control your response. Making time for activities that help you relax and not feeling guilty about spending your time in this way. Doing visual imagery. This involves imagining or creating mental pictures to help you relax. Practicing yoga. Through yoga poses, you can lower tension and relax. Medicines Medicines for anxiety include: Antidepressant medicines. These are usually prescribed for long-term daily control. Anti-anxiety medicines. These may be added in severe cases, especially when panic attacks occur. When used together, medicines, psychotherapy, and tension-reduction techniques may be the most effective treatment. Relationships Relationships can play a big part in helping you recover. Spend more time connecting with trusted friends and family members. Think about going to couples counseling if you have a partner, taking family education classes, or going to family therapy. Therapy can help you and others better understandyour anxiety. How to recognize changes in your anxiety Everyone responds differently to treatment for anxiety. Recovery from anxiety happens when symptomslessen and stop interfering with your daily life at home or work. This may mean that you will startto: Have better concentration and focus. Worry will interfere less in your daily thinking. Sleep better. Be less irritable. Have more energy. Have improved memory. Try to recognize when your condition is getting worse. Contact your provider if your symptoms interfere with home or work and you feel like your condition is not improving. Follow these instructions at home: Activity Exercise. Adults should: ?Exercise for at least 150 minutes each week. The exercise should increase your heart rate and makeyou sweat (moderate-intensity exercise). ?Do strengthening exercises at least twice a week. Get the right amount and quality of sleep. Most adults need 7 9 hours of sleep each night. Lifestyle Eat a healthy diet that includes plenty of vegetables, fruits, whole grains, low-fat dairy products, and lean protein. ?Do not eat a lot of foods that are high in fats, added sugars, or salt (sodium). Make choices that simplify your life. Do not use any products that contain nicotine or tobacco. These products include cigarettes, chewing tobacco, and vaping devices, such as e-cigarettes. If you need help quitting, ask your provider. Avoid caffeine, alcohol, and certain srkl-jge-szmjkkj cold medicines. These may make you feel worse. Ask your pharmacist which medicines to avoid. General instructions Take zffu-cxi-ffcxgrf and prescription medicines only as told by your provider. Keep all follow-up visits. This is to make sure you are managing your anxiety well or if you need more support. Where to find support You can get help and support from: Self-help groups. Online and community organizations. A trusted spiritual leader. Couples counseling. Family education classes. Family therapy. Where to find more information You may find that joining a support group helps you deal with your anxiety. The following sources can help you find counselors or support groups near you: Mental Health [place]: mentalhealthamerica.net Anxiety and Depression Association of [place] (ADAA): adaa.org National [place] on Mental Illness (TAMI): tami.org Contact a health care provider if: You have a hard time staying focused or finishing tasks. You spend many hours a day feeling worried about everyday life. You are very tired because you cannot stop worrying. You start to have headaches or often feel tense. You have chronic nausea or diarrhea. Get help right away if: Your heart feels like it is racing. You have shortness of breath. You have thoughts of hurting yourself or others. Get help right away if you feel like you may hurt yourself or others, or have thoughts about takingyour own life. Go to your nearest emergency room or: Call 911. Call the National Suicide Prevention Lifeline at or 876. This is open 24 hours a day. Text the Crisis Text Line at 663526. This information is not intended to replace advice given to you by your health care provider. Make sure you discuss any questions you have with your health care provider. Document Revised: 12/30/2022 Document Reviewed: 07/14/2021 [employer] Patient Education 2023 [employer]. 12/29/2023 14:52:06 Managing Depression, Adult Managing Depression, Adult Depression is a mental health condition that affects your thoughts, feelings, and actions. Being diagnosed with depression can bring you relief if you did not know why you have felt or behaved a certain way. It could also leave you feeling overwhelmed. Finding ways to manage your symptoms can help you feel more positive about your future. How to manage lifestyle changes Being depressed is difficult. Depression can increase the level of everyday stress. Stress can makedepression symptoms worse. You may believe your symptoms cannot be managed or will never improve. However, there are many things you can try to help manage your symptoms. There is hope. Managing stress Stress is your body's reaction to life changes and events, both good and bad. Stress can add to your feelings of depression. Learning to manage your stress can help lessen your feelings of depression. Try some of the following approaches to reducing your stress (stress reduction techniques): Listen to music that you enjoy and that inspires you. Try using a meditation boyd or take a meditation class. Develop a practice that helps you connect with your spiritual self. Walk in nature, pray, or go to a place of uatsdin. Practice deep breathing. To do this, inhale slowly through your nose. Pause at the top of your inhale for a few seconds and then exhale slowly, letting yourself relax. Repeat this three or four times. Practice yoga to help relax and work your muscles. Choose a stress reduction technique that works for you. These techniques take time and practice to develop. Set aside 5 15 minutes a day to do them. Therapists can offer training in these techniques.Do these things to help manage stress: Keep a journal. Know your limits. Set healthy boundaries for yourself and others, such as saying no when you think something is too much. Pay attention to how you react to certain situations. You may not be able to control everything, but you can change your reaction. Add humor to your life by watching funny movies or shows. Make time for activities that you enjoy and that relax you. Spend less time using electronics, especially at night before bed. The light from screens can make your brain think it is time to get up rather than go to bed. Medicines Medicines, such as antidepressants, are often a part of treatment for depression. Talk with your pharmacist or health care provider about all the medicines, supplements, and herbal products that you take, their possible side effects, and what medicines and other products are safe to take together. Make sure to report any side effects you may have to your health care provider. Relationships Your health care provider may suggest family therapy, couples therapy, or individual therapy as part of your treatment. How to recognize changes Everyone responds differently to treatment for depression. As you recover from depression, you may start to: Have more interest in doing activities. Feel more hopeful. Have more energy. Eat a more regular amount of food. Have better mental focus. It is important to recognize if your depression is not getting better or is getting worse. The symptoms you had in the beginning may return, such as: Feeling tired. Eating too much or too little. Sleeping too much or too little. Feeling restless, agitated, or hopeless. Trouble focusing or making decisions. Having unexplained aches and pains. Feeling irritable, angry, or aggressive. If you or your family members notice these symptoms coming back, let your health care provider knowright away. Follow these instructions at home: Activity Try to get some form of exercise each day, such as walking. Try yoga, mindfulness, or other stress reduction techniques. Participate in group activities if you are able. Lifestyle Get enough sleep. Cut down on or stop using caffeine, tobacco, alcohol, and any other harmful substances. Eat a healthy diet that includes plenty of vegetables, fruits, whole grains, low-fat dairy products, and lean protein. Limit foods that are high in solid fats, added sugar, or salt (sodium). General instructions Take ovio-vab-zijhalf and prescription medicines only as told by your health care provider. Keep all follow-up visits. It is important for your health care provider to check on your mood, behavior, and medicines. Your health care provider may need to make changes to your treatment. Where to find support Talking to others Friends and family members can be sources of support and guidance. Talk to trusted friends or family members about your condition. Explain your symptoms and let them know that you are working with a health care provider to treat your depression. Tell friends and family how they can help. Finances Find mental health providers that fit with your financial situation. Talk with your health care provider if you are worried about access to food, housing, or medicine. Call your insurance company to learn about your co-pays and prescription plan. Where to find more information You can find support in your area from: Anxiety and Depression Association of [place] (ADAA): adaa.org Mental Health [place]: mentalhealthamerica.net National [place] on Mental Illness: tami.org Contact a health care provider if: You stop taking your antidepressant medicines, and you have any of these symptoms: ?Nausea. ?Headache. ?Light-headedness. ?Chills and body aches. ?Not being able to sleep (insomnia). You or your friends and family think your depression is getting worse. Get help right away if: You have thoughts of hurting yourself or others. Get help right away if you feel like you may hurt yourself or others, or have thoughts about takingyour own life. Go to your nearest emergency room or: Call 911. Call the National Suicide Prevention Lifeline at or 294. This is open 24 hours a day. Text the Crisis Text Line at 042966. This information is not intended to replace advice given to you by your health care provider. Make sure you discuss any questions you have with your health care provider. Document Revised: 07/29/2022 Document Reviewed: 07/29/2022 [employer] Patient Education 2023 [employer] Follow Up Care 12/28/2023 10:17:33 With:Lupillo MORA, APPLE PACKING HEADER-ACTIVITY THERAPIST, Loreta Wan Address: [address] [place] [phone] When:Within 1 Month(s) [facility] [place] 09-24-2024 NoteProgress Note-Nurse Ariane with P called [facility] NotePatient Education Mental and Behavioral Health Suicidal Feelings: How to Help Yourself Suicide is when you end your own life. Suicidal ideation includes expressing thoughts about, or a preoccupation with, ending your own life. There are many things you can do to help yourself feel better when struggling with these feelings. Many services and people are available to support you and others who struggle with similar feelings. If you ever feel like you may hurt yourself or others, or have thoughts about taking your own life,get help right away. To get help: ? Go to your nearest emergency department. ? Call your local emergency services (911 in the [place] ? Call the [facility] and human services helpline (211 in the [place] ? Call or text a suicide hotline to speak with a trained counselor. The following suicide hotlines are available in the [place]: ? 6-685-163-TALK ( or 297 in the [place] ? 6-447-YGABLMR ( ). ? Text 583210. This is the Crisis Text Line in the [place] ? . This is a hotline for [place] speakers. ? . This is a hotline for TTY users. ? 5-823-3-U-ANTWON ( ). This is a hotline for lesbian, camara, bisexual, transgender, or questioning youth. ? For a list of hotlines in [place], visit suicide.org/hotlines/international/pjxnnc-zuxysjl-qgxjhnyh.html ? Contact a crisis center or a local suicide prevention center. To find a crisis center or suicide prevention center: ? Call your local hospital, clinic, community service organization, mental health center, social service provider, or health department. Ask for help with connecting to a crisis center. ? For a list of crisis centers in the [place], visit: suicidepreventionlifeline.org ? For a list of crisis centers in [place], visit: suicideprevention.nv How to help yourself feel better ? Promise yourself that you will not do anything bad or extreme when you have suicidal feelings. Remember the times you have felt hopeful. ? Many people have gotten through suicidal thoughts and feelings, and you can too. ? If you have had these feelings before, remind yourself that you can get through them again. ? Let family, friends, teachers, or counselors know how you are feeling. Do not separate yourself from those who care about you and want to help you. ? Talk with someone every day, even if you do not feel like talking to anyone or being with other people. ? Qjou-du-nrjh conversation is best to help them understand your feelings. ? Contact a mental health care provider and work with this person regularly. ? Make a safety plan that you can follow during a crisis. ? Include phone numbers of suicide prevention hotlines, mental health professionals, and trusted friends and family members you can call during an emergency. ? Save these numbers on your phone. ? If you are thinking of taking a lot of medicine, give your medicine to someone who can give it toyou as prescribed. ? If you are on antidepressants and are concerned you will overdose, tell your health care providerso that he or she can give you safer medicines. ? Try to stick to your routines and follow a schedule every day. Make self-care a priority. ? Make a list of realistic goals, and cross them off when you achieve them. Accomplishments can give you a sense of worth. ? Wait until you are feeling better before doing things that you find difficult or unpleasant. ? Do things that you have always enjoyed to take your mind off your feelings. ? Try reading a book, or listening to or playing music. ? Spending time outside, in nature, may help you feel better. Follow these instructions at home: ? Visit your primary health care provider every year for a physical and a mental health checkup. ? Take zkuo-hxz-dwpijcy and prescription medicines only as told by your health care provider. ? Ask your health care provider about the possible side effects of any medicines you are taking. ? Ask your health care provider about whether suicidal ideation is a possible side effect of any ofyour medicines. ? Learn about suicidal ideation and what increases the risk for the development of suicidal thoughts. ? Eat a well-balanced diet, and eat regular meals. ? Get plenty of rest. ? Exercise if you are able. Just 30 minutes of exercise each day can help you feel better. ? Keep your living space well lit. ? Do not use alcohol or drugs. Remove these substances from your home. General recommendations ? Remove weapons, poisons, knives, and other deadly items from your home. ? Work with a mental health care provider as needed. ? When you are feeling well, write yourself a letter with tips and support that you can read when you are not feeling well. ? Remember that life's difficulties can be sorted out with help. Conditions can be treated, and youcan learn behaviors and ways of th (more content not included)...[facility]09-24-2024 NoteProgress Note-[facility] + Plan noteExtracted from: Title:ED Note Author:Julio Cesar Douglas Date:12/28 1. Suicidal ideations (R45.8 51: Suicidal ideations) Orders: Capillary Glucose POC Capillary Glucose POC CBC w/ Auto Diff Communication Order Comprehensive Metabolic Panel Consult to Mental Health CT Head or Brain w/o Contrast Drug Screen Urine ECG 12 Lead Adult eGFR Ethanol Level Extra Blue Tube Extra SST Tube Transfer Patient to with Cult Rflx Future Appointments Appointment Date:02/02/2024 09:40:00 AM Scheduled Provider:Lupillo MORA, APPLE PACKING HEADER-ACTIVITY THERAPIST, Loreta Wan Location:[facility] [place] Appointment Type: Open Appointment Date:03/24/2024 08:00:00 AM [facility]uled [facility] Type: Medicare Wellness Subsequent Appointment Date:04/01/2024 07:00:00 AM Scheduled Provider:Jia Woodward Location:[facility] [place] Appointment Type: Open [facility] 06-27-2024 Hospital Discharge instructions Follow Up Care 10/01/2023 13:12:03 With:Rodrigue NEGRONMarvin Address: [address] [place] [phone] When: Unknown Comments:[facility] been [facility] Discharge [facility]* Discharge Instructions* Justin Jc MD - 09/29/2023 9:52 AM EDT Gentle heat or ice as needed for comfort, we discussed 2 Tylenol every 6 hours as needed for discomfort, you can try any of the topical rubs such as IcyHot or Biofreeze, will be careful not to irritate the skin. We discussed your concern for Celecoxib causing some itching, as it is not affecting her airway cantry it 1 additional time and it again causes itching of the skin with hold off taking the medication. * Attachments The following attachments cannot be sent through Care Everywhere. * Calf Strain: Rehab Exercises (Senegalese) * Muscle Strain ([place]) [facility] Follow Up Care 09/21/2023 09:23:08 With:Martha Tony DO, CHELY Address: When:Within 3 Month(s) Comments:with pcp check diabeties and progress knee [facility] [place] 06-07-2024 Hospital Discharge instructions Follow Up Care 09/11/2023 11:59:42 With:Jia Woodward Address: [address] [place] [address] When:Within 4 Month(s) Comments:FU for DM, CKD [facility] Discharge instructions Patient Education 08/11/2023 10:59:43 Diabetes Mellitus and Nutrition, Adult Diabetes Mellitus and Nutrition, Adult When you have diabetes, or diabetes mellitus, it is very important to have healthy eating habits because your blood sugar (glucose) levels are greatly affected by what you eat and drink. Eating healthy foods in the right amounts, at about the same times every day, can help you: Manage your blood glucose. Lower your risk of heart disease. Improve your blood pressure. Reach or maintain a healthy weight. What can affect my meal plan? Every person with diabetes is different, and each person has different needs for a meal plan. Your health care provider may recommend that you work with a dietitian to make a meal plan that is best for you. Your meal plan may vary depending on factors such as: The calories you need. The medicines you take. Your weight. Your blood glucose, blood pressure, and cholesterol levels. Your activity level. Other health conditions you have, such as heart or kidney disease. How do carbohydrates affect me? Carbohydrates, also called carbs, affect your blood glucose level more than any other type of food.Eating carbs raises the amount of glucose in your blood. It is important to know how many carbs you can safely have in each meal. This is different for every person. Your dietitian can help you calculate how many carbs you should have at each meal and for each snack. How does alcohol affect me? Alcohol can cause a decrease in blood glucose (hypoglycemia), especially if you use insulin or takecertain diabetes medicines by mouth. Hypoglycemia can be a life-threatening condition. Symptoms of hypoglycemia, such as sleepiness, dizziness, and confusion, are similar to symptoms of having too much alcohol. Do not drink alcohol if: ?Your health care provider tells you not to drink. ?You are , may be , or are planning to become . If you drink alcohol: ?Limit how much you have to: ?0 1 drink a day for women. ?0 2 drinks a day for men. ?Know how much alcohol is in your drink. In the [place] one drink equals one 12 oz bottle of beer (355 mL), one 5 oz glass of wine (148 mL), or one 1 oz glass of hard liquor (44 mL). ?Keep yourself hydrated with water, diet soda, or unsweetened iced tea. Keep in mind that regular soda, juice, and other mixers may contain a lot of sugar and must be counted as carbs. What are tips for following this plan? Reading food labels Start by checking the serving size on the Nutrition Facts label of packaged foods and drinks. The number of calories and the amount of carbs, fats, and other nutrients listed on the label are based on one serving of the item. Many items contain more than one serving per package. Check the total grams (g) of carbs in one serving. Check the number of grams of saturated fats and trans fats in one serving. Choose foods that have alow amount or none of these fats. Check the number of milligrams (mg) of salt (sodium) in one serving. Most people should limit totalsodium intake to less than 2,300 mg per day. Always check the nutrition information of foods labeled as low-fat or nonfat. These foods may be higher in added sugar or refined carbs and should be avoided. Talk to your dietitian to identify your daily goals for nutrients listed on the label. Shopping Avoid buying canned, pre-made, or processed foods. These foods tend to be high in fat, sodium, and added sugar. Shop around the outside edge of the grocery store. This is where you will most often find fresh fruits and vegetables, bulk grains, fresh meats, and fresh dairy products. Cooking Use low-heat cooking methods, such as baking, instead of high-heat cooking methods, such as deep frying. Cook using healthy oils, such as olive, canola, or sunflower oil. Avoid cooking with butter, cream, or high-fat meats. Meal planning Eat meals and snacks regularly, preferably at the same times every day. Avoid going long periods oftime without eating. Eat foods that are high in fiber, such as fresh fruits, vegetables, beans, and whole grains. Eat 4 6 oz (112 168 g) of lean protein each day, such as lean meat, chicken, fish, eggs, or tofu. One ounce (oz) (28 g) of lean protein is equal to: ?1 oz (28 g) of meat, chicken, or fish. ?1 egg. ? cup (62 g) of tofu. Eat some foods each day that contain healthy fats, such as avocado, nuts, seeds, and fish. What foods should I eat? Fruits Berries. Apples. Oranges. Peaches. Apricots. Plums. Grapes. Mangoes. Papayas. Pomegranates. Kiwi. Cherries. Vegetables Leafy greens, including lettuce, spinach, kale, chard, stef greens, mustard greens, and cabbage.Beets. Cauliflower. Broccoli. Carrots. Green beans. Tomatoes. Peppers. Onions. Cucumbers. [place] sprouts. Grains Whole grains, such as whole-wheat or whole-grain bread, crackers, tortillas, cereal, and pasta. Unsweetened oatmeal. Quinoa. Brown or wild rice. Meats and other proteins Seafood. Poultry without skin. Lean cuts of poultry and beef. Tofu. Nuts. Seeds. Dairy Low-fat or fat-free dairy products such as milk, yogurt, and cheese. The items listed above may not be a complete list of foods and beverages you can eat and drink. Contact a dietitian for more information. What foods should I avoid? Fruits Fruits canned with syrup. Vegetables Canned vegetables. Frozen vegetables with butter or cream sauce. Grains Refined white flour and flour products such as bread, pasta, snack foods, and cereals. Avoid all processed foods. Meats and other proteins Fatty cuts of meat. Poultry with skin. Breaded or fried meats. Processed meat. Avoid saturated fats. Dairy Full-fat yogurt, cheese, or milk. Beverages Sweetened drinks, such as soda or iced tea. The items listed above may not be a complete list of foods and beverages you should avoid. Contact a dietitian for more information. Questions to ask a health care provider Do I need to meet with a certified diabetes care and education instructor? Do I need to meet with a dietitian? What number can I call if I have questions? When are the best times to check my blood glucose? Where to find more information: [place] Diabetes Association: diabetes.org Academy of Nutrition and Dietetics: eatright.org National [place] of Diabetes and Digestive and Kidney Diseases: niddk.nih.gov Association of Diabetes Care & Education Specialists: diabeteseducator.org Summary It is important to have healthy eating habits because your blood sugar (glucose) levels are greatlyaffected by what you eat and drink. It is important to use alcohol carefully. A healthy meal plan will help you manage your blood glucose and lower your risk of heart disease. Your health care provider may recommend that you work with a dietitian to make a meal plan that is best for you. This information is not intended to replace advice given to you by your health care provider. Make sure you discuss any questions you have with your health care provider. Document Revised: 10/24/2020 Document Reviewed: 10/24/2020 [employer] Patient Education 2022 [employer]. Follow Up Care 08/07/2023 13:11:49 With:Marvin Husain PA-C Address: [address] [place] [address] [place] [phone] When:Within 1 Month(s) Comments:FU for DM II, please reschedule 08/24/23 appointment [facility] [place] 04-29-2024 Hospital Discharge instructions Patient Education 08/03/2023 18:34:02 Hyperglycemia Hyperglycemia Hyperglycemia occurs when the level of sugar (glucose) in the blood is too high. Glucose is a type of sugar that provides the body's main source of energy. Certain hormones (insulin and glucagon) control the level of glucose in the blood. Insulin lowers blood glucose, and glucagon increases blood glucose. Hyperglycemia can result from not having enough insulin in the bloodstream, or from the bodynot responding normally to insulin. Hyperglycemia occurs most often in people who have diabetes (diabetes mellitus), but it can happen in people who do not have diabetes. It can develop quickly, and it can be life-threatening if it causes you to become severely dehydrated (diabetic ketoacidosis or hyperglycemic hyperosmolar state). Severe hyperglycemia is a medical emergency. For most people with diabetes, a blood glucose level above 240 mg/dL is considered hyperglycemia. What are the causes? If you have diabetes, hyperglycemia may be caused by: Medicines that increase blood glucose or affect your diabetes control. Getting less physical activity. Eating more than planned. Being sick or injured, having an infection, or having surgery. Stress. Not giving yourself enough insulin (if you are taking insulin). If you have undiagnosed diabetes, this may be the reason you have hyperglycemia. If you do not have diabetes, hyperglycemia may be caused by: Certain medicines, including: ?Steroid medicines. ?Beta-blockers. ?Epinephrine. ?Thiazide diuretics. Stress. Having a serious illness, an infection, or surgery. Diseases of the pancreas. What increases the risk? Hyperglycemia is more likely to develop in people who have risk factors for diabetes, such as: Having a family member with diabetes. Certain conditions in which the body's disease-fighting system (immune system) attacks itself (autoimmune disorders). Being overweight or obese. Having an inactive (sedentary) lifestyle. Having been diagnosed with insulin resistance. Having a history of prediabetes, gestational diabetes, or polycystic ovarian syndrome (PCOS). What are the signs or symptoms? Hyperglycemia may not cause any symptoms. If you do have symptoms, they may include: Increased thirst. Needing to urinate more often than usual. Hunger. Feeling very tired. Blurry vision. Other symptoms may develop if hyperglycemia gets worse, such as: Dry mouth. Abdominal pain. Loss of appetite. Fruity-smelling breath. Weakness. Unexpected weight loss. Tingling or numbness in the hands or feet. Headache. Cuts or bruises that are slow to heal. How is this diagnosed? Hyperglycemia is diagnosed with a blood test to measure your blood glucose level. This blood test is usually done while you are having symptoms. Your health care provider may also do a physical exam and review your medical history. You may have more tests to determine the cause of your hyperglycemia, such as: A fasting blood glucose (FBG) test. You will not be allowed to eat (you will fast) for at least 8 hours before a blood sample is taken. An A1C blood test. This provides information about blood glucose control over the previous 2 3 months. An oral glucose tolerance test (OGTT). This measures your blood glucose at two times: ?After fasting. This is your baseline blood glucose level. ?2 hours after drinking a beverage that contains glucose. How is this treated? Treatment depends on the cause of your hyperglycemia. Treatment may include: Taking medicine to regulate your blood glucose levels. If you take insulin or other diabetes medicines, your medicine or dosage may be adjusted. Lifestyle changes, such as exercising more, eating healthier foods, or losing weight. Treating an illness or infection. Checking your blood glucose more often. Stopping or reducing steroid medicines. If your hyperglycemia becomes severe and it results in diabetic ketoacidosis or hyperglycemic hyperosmolar state, you must be hospitalized and given IV fluids and IV insulin. Follow these instructions at home: General instructions Take yslz-aaj-qqeyfts and prescription medicines only as told by your health care provider. Do not use any products that contain nicotine or tobacco. These products include cigarettes, chewing tobacco, and vaping devices, such as e-cigarettes. If you need help quitting, ask your health careprovider. If you drink alcohol: ?Limit how much you have to: ?0 1 drink a day for women who are not . ?0 2 drinks a day for men. ?Know how much alcohol is in a drink. In the [place] one drink equals one 12 oz bottle of beer (355 mL), one 5 oz glass of wine (148 mL), or one 1 oz glass of hard liquor (44 mL). Learn to manage stress. If you need help with this, ask your health care provider. Do exercises as told by your health care provider. Keep all follow-up visits. This is important. Eating and drinking Maintain a healthy weight. Stay hydrated, especially when you exercise, get sick, or spend time in hot temperatures. Drink enough fluid to keep your urine pale yellow. If you have diabetes: Know the symptoms of hyperglycemia. Follow your diabetes management plan as told by your health care provider. Make sure you: ?Take your insulin and medicines as told. ?Follow your exercise plan. ?Follow your meal plan. Eat on time, and do not skip meals. ?Check your blood glucose as often as told. Make sure to check your blood glucose before and after exercise. If you exercise longer or in a different way, check your blood glucose more often. ?Follow your sick day plan whenever you cannot eat or drink normally. Make this plan in advance with your health care provider. Share your diabetes management plan with people in your workplace, school, and household. Check your urine for ketones when you are ill and as told by your health care provider. Carry a medical alert card or wear medical alert jewelry. Where to find more information [place] Diabetes Association: www.diabetes.org Contact a health care provider if: Your blood glucose is at or above 240 mg/dL (13.3 mmol/L) for 2 days in a row. You have problems keeping your blood glucose in your target range. You have frequent episodes of hyperglycemia. You have signs of illness, such as nausea, vomiting, or fever. Get help right away if: Your blood glucose monitor reads high even when you are taking insulin. You have trouble breathing. You have a change in how you think, feel, or act (mental status). You have nausea or vomiting that does not go away. These symptoms may represent a serious problem that is an emergency. Do not wait to see if the symptoms will go away. Get medical help right away. Call your local emergency services (911 in the [place] Do not drive yourself to the hospital. Summary Hyperglycemia occurs when the level of sugar (glucose) in the blood is too high. Hyperglycemia can happen with or without diabetes, and severe hyperglycemia can be life-threatening. Hyperglycemia is diagnosed with a blood test to measure your blood glucose level. This blood test is usually done while you are having symptoms. Your health care provider may also do a physical exam and review your medical history. If you have diabetes, follow your diabetes management plan as told by your health care provider. Contact your health care provider if you have problems keeping your blood glucose in your target range. This information is not intended to replace advice given to you by your health care provider. Make sure you discuss any questions you have with your health care provider. Document Revised: 01/04/2021 Document Reviewed: 01/04/2021 [employer] Patient Education 2022 [employer]. Follow Up Care 08/03/2023 15:33:12 With:Marvin Husain Address: [address] [place] [phone] [phone] Business (1) When:08/06/2023 17:39:27 [facility]04-26-2024 Hospital Discharge instructions Patient Education 07/31/2023 08:40:53 Diabetes Mellitus and Nutrition, Adult Diabetes Mellitus and Nutrition, Adult When you have diabetes, or diabetes mellitus, it is very important to have healthy eating habits because your blood sugar (glucose) levels are greatly affected by what you eat and drink. Eating healthy foods in the right amounts, at about the same times every day, can help you: Manage your blood glucose. Lower your risk of heart disease. Improve your blood pressure. Reach or maintain a healthy weight. What can affect my meal plan? Every person with diabetes is different, and each person has different needs for a meal plan. Your health care provider may recommend that you work with a dietitian to make a meal plan that is best for you. Your meal plan may vary depending on factors such as: The calories you need. The medicines you take. Your weight. Your blood glucose, blood pressure, and cholesterol levels. Your activity level. Other health conditions you have, such as heart or kidney disease. How do carbohydrates affect me? Carbohydrates, also called carbs, affect your blood glucose level more than any other type of food.Eating carbs raises the amount of glucose in your blood. It is important to know how many carbs you can safely have in each meal. This is different for every person. Your dietitian can help you calculate how many carbs you should have at each meal and for each snack. How does alcohol affect me? Alcohol can cause a decrease in blood glucose (hypoglycemia), especially if you use insulin or takecertain diabetes medicines by mouth. Hypoglycemia can be a life-threatening condition. Symptoms of hypoglycemia, such as sleepiness, dizziness, and confusion, are similar to symptoms of having too much alcohol. Do not drink alcohol if: ?Your health care provider tells you not to drink. ?You are , may be , or are planning to become . If you drink alcohol: ?Limit how much you have to: ?0 1 drink a day for women. ?0 2 drinks a day for men. ?Know how much alcohol is in your drink. In the [place] one drink equals one 12 oz bottle of beer (355 mL), one 5 oz glass of wine (148 mL), or one 1 oz glass of hard liquor (44 mL). ?Keep yourself hydrated with water, diet soda, or unsweetened iced tea. Keep in mind that regular soda, juice, and other mixers may contain a lot of sugar and must be counted as carbs. What are tips for following this plan? Reading food labels Start by checking the serving size on the Nutrition Facts label of packaged foods and drinks. The number of calories and the amount of carbs, fats, and other nutrients listed on the label are based on one serving of the item. Many items contain more than one serving per package. Check the total grams (g) of carbs in one serving. Check the number of grams of saturated fats and trans fats in one serving. Choose foods that have alow amount or none of these fats. Check the number of milligrams (mg) of salt (sodium) in one serving. Most people should limit totalsodium intake to less than 2,300 mg per day. Always check the nutrition information of foods labeled as low-fat or nonfat. These foods may be higher in added sugar or refined carbs and should be avoided. Talk to your dietitian to identify your daily goals for nutrients listed on the label. Shopping Avoid buying canned, pre-made, or processed foods. These foods tend to be high in fat, sodium, and added sugar. Shop around the outside edge of the grocery store. This is where you will most often find fresh fruits and vegetables, bulk grains, fresh meats, and fresh dairy products. Cooking Use low-heat cooking methods, such as baking, instead of high-heat cooking methods, such as deep frying. Cook using healthy oils, such as olive, canola, or sunflower oil. Avoid cooking with butter, cream, or high-fat meats. Meal planning Eat meals and snacks regularly, preferably at the same times every day. Avoid going long periods oftime without eating. Eat foods that are high in fiber, such as fresh fruits, vegetables, beans, and whole grains. Eat 4 6 oz (112 168 g) of lean protein each day, such as lean meat, chicken, fish, eggs, or tofu. One ounce (oz) (28 g) of lean protein is equal to: ?1 oz (28 g) of meat, chicken, or fish. ?1 egg. ? cup (62 g) of tofu. Eat some foods each day that contain healthy fats, such as avocado, nuts, seeds, and fish. What foods should I eat? Fruits Berries. Apples. Oranges. Peaches. Apricots. Plums. Grapes. Mangoes. Papayas. Pomegranates. Kiwi. Cherries. Vegetables Leafy greens, including lettuce, spinach, kale, chard, stef greens, mustard greens, and cabbage.Beets. Cauliflower. Broccoli. Carrots. Green beans. Tomatoes. Peppers. Onions. Cucumbers. [place] sprouts. Grains Whole grains, such as whole-wheat or whole-grain bread, crackers, tortillas, cereal, and pasta. Unsweetened oatmeal. Quinoa. Brown or wild rice. Meats and other proteins Seafood. Poultry without skin. Lean cuts of poultry and beef. Tofu. Nuts. Seeds. Dairy Low-fat or fat-free dairy products such as milk, yogurt, and cheese. The items listed above may not be a complete list of foods and beverages you can eat and drink. Contact a dietitian for more information. What foods should I avoid? Fruits Fruits canned with syrup. Vegetables Canned vegetables. Frozen vegetables with butter or cream sauce. Grains Refined white flour and flour products such as bread, pasta, snack foods, and cereals. Avoid all processed foods. Meats and other proteins Fatty cuts of meat. Poultry with skin. Breaded or fried meats. Processed meat. Avoid saturated fats. Dairy Full-fat yogurt, cheese, or milk. Beverages Sweetened drinks, such as soda or iced tea. The items listed above may not be a complete list of foods and beverages you should avoid. Contact a dietitian for more information. Questions to ask a health care provider Do I need to meet with a certified diabetes care and education instructor? Do I need to meet with a dietitian? What number can I call if I have questions? When are the best times to check my blood glucose? Where to find more information: [place] Diabetes Association: diabetes.org Academy of Nutrition and Dietetics: eatright.org National [place] of Diabetes and Digestive and Kidney Diseases: niddk.nih.gov Association of Diabetes Care & Education Specialists: diabeteseducator.org Summary It is important to have healthy eating habits because your blood sugar (glucose) levels are greatlyaffected by what you eat and drink. It is important to use alcohol carefully. A healthy meal plan will help you manage your blood glucose and lower your risk of heart disease. Your health care provider may recommend that you work with a dietitian to make a meal plan that is best for you. This information is not intended to replace advice given to you by your health care provider. Make sure you discuss any questions you have with your health care provider. Document Revised: 10/24/2020 Document Reviewed: 10/24/2020 [employer] Patient Education 2022 [employer]. Follow Up Care 07/29/2023 09:56:13 With:Marvin Husain PA-C Address: [address] [place] [phone] When:Within 1 Month(s) Comments:FU for DM [facility] 04-26-2024 Hospital Discharge instructions Follow Up Care 07/31/2023 08:32:56 With:Marvin Husain PA-C Address: [address] [place] [phone] When: Unknown Comments:FU for DM [facility] 03-18-2024 Hospital Discharge instructions Patient Education 06/22/2023 09:51:33 Fatigue Fatigue If you have fatigue, you feel tired all the time and have a lack of energy or a lack of motivation.Fatigue may make it difficult to start or complete tasks because of exhaustion. Occasional or mild fatigue is often a normal response to activity or life. However, long-term (chronic) or extreme fatigue may be a symptom of a medical condition such as: Depression. Not having enough red blood cells or hemoglobin in the blood (anemia). A problem with a small gland located in the lower front part of the neck (thyroid disorder). Rheumatologic conditions. These are problems related to the body's defense system (immune system). Infections, especially certain viral infections. Fatigue can also lead to negative health outcomes over time. Follow these instructions at home: Medicines Take [id number] and prescription medicines only as told by your health care provider. Take a multivitamin if told by your health care provider. Do not use herbal or dietary supplements unless they are approved by your health care provider. Eating and drinking Avoid heavy meals in the evening. Eat a well-balanced diet, which includes lean proteins, whole grains, plenty of fruits and vegetables, and low-fat dairy products. Avoid eating or drinking too many products with caffeine in them. Avoid alcohol. Drink enough fluid to keep your urine pale yellow. Activity Exercise regularly, as told by your health care provider. Use or practice techniques to help you relax, such as yoga, doni chi, meditation, or massage therapy. Lifestyle Change situations that cause you stress. Try to keep your work and personal schedules in balance. Do not use recreational or illegal drugs. General instructions Monitor your fatigue for any changes. Go to bed and get up at the same time every day. Avoid fatigue by pacing yourself during the day and getting enough sleep at night. Maintain a healthy weight. Contact a health care provider if: Your fatigue does not get better. You have a fever. You suddenly lose or gain weight. You have headaches. You have trouble falling asleep or sleeping through the night. You feel angry, guilty, anxious, or sad. You have swelling in your legs or another part of your body. Get help right away if: You feel confused, feel like you might faint, or faint. Your vision is blurry or you have a severe headache. You have severe pain in your abdomen, your back, or the area between your waist and hips (pelvis). You have chest pain, shortness of breath, or an irregular or fast heartbeat. You are unable to urinate, or you urinate less than normal. You have abnormal bleeding from the rectum, nose, lungs, nipples, or, if you are female, the vagina. You vomit blood. You have thoughts about hurting yourself or others. These symptoms may be an emergency. Get help right away. Call 911. Do not wait to see if the symptoms will go away. Do not drive yourself to the hospital. Get help right away if you feel like you may hurt yourself or others, or have thoughts about takingyour own life. Go to your nearest emergency room or: Call 911. Call the National Suicide Prevention Lifeline at or 899. This is open 24 hours a day. Text the Crisis Text Line at 556976. Summary If you have fatigue, you feel tired all the time and have a lack of energy or a lack of motivation. Fatigue may make it difficult to start or complete tasks because of exhaustion. Long-term (chronic) or extreme fatigue may be a symptom of a medical condition. Exercise regularly, as told by your health care provider. Change situations that cause you stress. Try to keep your work and personal schedules in balance. This information is not intended to replace advice given to you by your health care provider. Make sure you discuss any questions you have with your health care provider. Document Revised: 01/13/2022 Document Reviewed: 01/13/2022 [employer] Patient Education 2022 [employer] Follow Up Care 03/24/2023 10:11:03 With:Marvin Husain PA-C Address: [address] [place] [address]- [phone] When:Within 3 Month(s) Comments:FU for DM, HTN, HLD [facility] 02-12-2024 Evaluation note* Encounter Date Diagnosis Assessment Notes Treatment Notes Treatment Clinical Notes May, Type 2 diabetes mellitus with diabetic chronic kidney disease (ICD-10 - E11.22) Her Blood sugars are within the acceptable range. I have advised her to continue to work with PCP for DM management. She has no evidence of proteinuria. Continue current dose of lisinopril. I will explained that she may benefit with SGLT2 inhibitors including Farxiga or Jardiance or Invokana. She can discuss with her PCP about it. I explained to her and daughter that due to her risk of hypotension and hyperkalemia will not prescribe Kerendia for now. May, Chronic kidney disea se, stage III (moderate) (ICD-10 - N18.30) She has CKD due to DM and HTN. Her serum Creatinine is 1.0-1.2 mg/dl. I have discussed with her the importance of good DM to control to slow down the progression of disease. Her renal US was unremarkable in 2012. May, Vitamin D deficiency (ICD-10 - E55.9) She has a secondary hyperparathyroidism due to the vitamin D deficiency. I have prescribed oral ergocalciferol 50,000 unit once weekly. May, Hypertensive chronic kidney disease with stage 1 through stage 4 chronic kidney disease, or unspecified chronic kidney disease (ICD-10 - I12.9) Blood pressure is Controlled. Continue current medications May, Secondary hyperparathyroidism (ICD-10 - N25.81) She has a secondary hyperparathyroidism due to the CKD and Vit D deficiency but her calcium and phosphorus are within normal limit. May, Hypomagnesemia (ICD- 10 - E83.42) She has hypomagnesemia due to the renal magnesium wasting. I I have prescribed oral magnesium. May, Dyslipidemia (ICD-10 - E78.5) Continue atorvastatin. Continue to follow with PCP for monitoring of lipid profile and LFTs. May, Other She has hyperur icemia due to CKD but denies any gout flare. Will monitor without any medications. [employer] Other [id number] Hospital Discharge instructions Patient Education 03/24/2023 10:08:56 Diabetes Mellitus and Exercise Diabetes Mellitus and Exercise Exercising regularly is important for overall health, especially for people who have diabetes mellitus. Exercising is not only about losing weight. It has many other health benefits, such as increasing muscle strength and bone density and reducing body fat and stress. This leads to improved fitness, flexibility, and endurance, all of which result in better overall health. What are the benefits of exercise if I have diabetes? Exercise has many benefits for people with diabetes. They include: Helping to lower and control blood sugar (glucose). Helping the body to respond better to the hormone insulin by improving insulin sensitivity. Reducing how much insulin the body needs. Lowering the risk for heart disease by: ?Lowering bad cholesterol and triglyceride levels. ?Increasing good cholesterol levels. ?Lowering blood pressure. ?Lowering blood glucose levels. What is my activity plan? Your health care provider or certified nutritionist can help you make a plan for the type and frequency of exercise that works for you. This is called your activity plan. Be sure to: Get at least 150 minutes of medium-intensity or high-intensity exercise each week. Exercises may include brisk walking, biking, or water aerobics. Do stretching and strengthening exercises, such as yoga or weight lifting, at least 2 times a week. Spread out your activity over at least 3 days of the week. Get some form of physical activity each day. ?Do not go more than 2 days in a row without some kind of physical activity. ?Avoid being inactive for more than 90 minutes at a time. Take frequent breaks to walk or stretch. Choose exercises or activities that you enjoy. Set realistic goals. Start slowly and gradually increase your exercise intensity over time. How do I manage my diabetes during exercise? Monitor your blood glucose Check your blood glucose before and after exercising. If your blood glucose is: ?240 mg/dL (13.3 mmol/L) or higher before you exercise, check your urine for ketones. These are chemicals created by the liver. If you have ketones in your urine, do not exercise until your blood glucose returns to normal. ?100 mg/dL (5.6 mmol/L) or lower, eat a snack containing 15 20 grams of carbohydrate. Check your blood glucose 15 minutes after the snack to make sure that your glucose level is above 100 mg/dL (5.6 mmol/L) before you start your exercise. Know the symptoms of low blood glucose (hypoglycemia) and how to treat it. Your risk for hypoglycemia increases during and after exercise. Follow these tips and your health care provider's instructions Keep a carbohydrate snack that is fast-acting for use before, during, and after exercise to help prevent or treat hypoglycemia. Avoid injecting insulin into areas of the body that are going to be exercised. For example, avoid injecting insulin into: ?Your arms, when you are about to play tennis. ?Your legs, when you are about to go jogging. Keep records of your exercise habits. Doing this can help you and your health care provider adjust your diabetes management plan as needed. Write down: ?Food that you eat before and after you exercise. ?Blood glucose levels before and after you exercise. ?The type and amount of exercise you have done. Work with your health care provider when you start a new exercise or activity. He or she may need to: ?Make sure that the activity is safe for you. ?Adjust your insulin, other medicines, and food that you eat. Drink plenty of water while you exercise. This prevents loss of water (dehydration) and problems caused by a lot of heat in the body (heat stroke). Where to find more information [place] [employer]: www.diabetes.org Summary Exercising regularly is important for overall health, especially for people who have diabetes mellitus. Exercising has many health benefits. It increases muscle strength and bone density and reduces bodyfat and stress. It also lowers and controls blood glucose. Your health care provider or certified nutritionist can help you make an activity plan for thetype and frequency of exercise that works for you. Work with your health care provider to make sure any new activity is safe for you. Also work with your health care provider to adjust your insulin, other medicines, and the food you eat. This information is not intended to replace advice given to you by your health care provider. Make sure you discuss any questions you have with your health care provider. Document Revised: 2019 Document Reviewed: 2019 [employer] Patient Education 2022 [employer]. Follow Up Care 12/23/2022 10:08:39 With:Marvin Husain PA-C Address: [address] [place] [phone] When:Within 3 Month(s) Comments:FU for for DM with fasting labs and urine [facility] [place] 08-23-2023 History of Present illness Narrative* DEANGELO Khan - 11/26/2022 8:30 AM EDT [facility] Outpatient Speech Language Pathology DAILY TREATMENT NOTE Date: 11/26/2022 Patient s Name: Sabina Canela Date of : 1950 (71 y.o.) Gender: female [facility] #: [id number] Referring physician: Ann Cornejo [employer] Insurance Information: Medicare [employer] Plans Total # of Visits to Date: 6 No Show: 1 Canceled Appointment: 0 Total # of Visits Since Initial Evaluation: 6 PAIN Pain: No Pain Rating (0-10 pain scale): 0 SUBJECTIVE Patient presents to clinic with her daughter, who remained in the room during the session. Patient pleasant and cooperative. No new speech concerns reported. GOALS/ TREATMENT SESSION: Goal 1: Sabina will recall 4 items after a 5 minute delay with 80% accuracy. Recalling appointment information after a 5 minute delay: 89% [x]Met []Partially met []Not met Goal 2: Sabina will demonstrate independent use of compensatory strategies for memory with 80% accuracy. Utilizing rehearsal/repetition, paraphrasing with 100% accuracy [x]Met []Partially met []Not met CROSS TIE MAKER GOALS: Goal 1: Sabina will demonstrate functional cognitive linguistic skills for independent completionof ADLs in 90% of opportunities. Goal progressing. See STG data []Met [x]Partially met []Not met EDUCATION New education provided to patient/family/caregiver: Yes: practicing paraphrasing, identifying only important information Method of education: Discussion Evaluation of patient s response to education: Patient and/or caregiver verbalized understanding ASSESSMENT Patient tolerated today s treatment session: Good Comments: PLAN Other: discharge due to meeting all goals TIME Time treatment session was INITIATED 0830 Time treatment session was STOPPED 0915 Minutes: 45 Charges: 1 Electronically signed by: Saba Willams M.S., [facility]-[employer] Date:11/26/2022 documented [place] [id number] History of Present illness Narrative* DEANGELO Khan - 11/19/2022 8:30 AM EDT [facility] Outpatient Speech Language Pathology DAILY TREATMENT NOTE Date: 11/19/2022 Patient s Name: Sabina Canela Date of : 1950 (71 y.o.) Gender: female [facility] #: [id number] Referring physician: Ann Cornejo [employer] Insurance Information: Medicare [facility] Health Plans Total # of Visits to Date: 5 No Show: 1 Canceled Appointment: 0 Total # of Visits Since Initial Evaluation: 5 PAIN Pain: No Pain Rating (0-10 pain scale): 0 SUBJECTIVE Patient presents to clinic independently. Patient pleasant and cooperative. No new speech concerns reported. GOALS/ TREATMENT SESSION: Goal 1: Sabina will complete working memory/immediate memory tasks with 80% accuracy. 100% [x]Met []Partially met []Not met Goal 2: Sabina will demonstrate independent use of compensatory strategies for memory with 80% accuracy. Practicing chunking information and visualizing []Met [x]Partially met []Not met Goal 3: Sabina will recall 4 items after a 5 minute delay with 80% accuracy. Recalling 6 items after a 4 minute delay: 6/6, 5/6, 4/6 (83%) Recalling appointment details after 4 minute delay: 100% []Met [x]Partially met []Not met CROSS TIE MAKER GOALS: Goal 1: Sabina will demonstrate functional cognitive linguistic skills for independent completionof ADLs in 90% of opportunities. Goal progressing. See STG data []Met [x]Partially met []Not met EDUCATION New education provided to patient/family/caregiver: Yes: using acronyms and Method of education: Discussion Evaluation of patient s response to education: Patient and/or caregiver verbalized understanding ASSESSMENT Patient tolerated today s treatment session: Good Comments: PLAN Continue with current plan of care TIME Time treatment session was INITIATED 0830 Time treatment session was STOPPED 0915 Minutes: 45 Charges: 1 Electronically signed by: Saba Willams M.S., [facility]-[employer]ER Date:11/19/2022 [facility] Evaluation note* Encounter Date Diagnosis Assessment Notes Treatment Notes Treatment Clinical Notes Nov, Type 2 diabetes mellitus with diabetic chronic kidney disease (ICD-10 - E11.22) Her Blood sugars are within the acceptable range. I have advised her to continue to work with PCP for DM management. She has no evidence of proteinuria. Continue current dose of lisinopril. I will explained that she may benefit with SGLT2 inhibitors including Farxiga or Jardiance or Invokana. She can discuss with her PCP about it. I explained to her and daughter that due to her risk of hypotension and hyperkalemia will not prescribe Kerendia for now. Nov, Chronic kidney disea se, stage III (moderate) (ICD-10 - N18.30) She has CKD due to DM and HTN. Her serum Creatinine is 1.0-1.2 mg/dl. I have discussed with her the importance of good DM to control to slow down the progression of disease. Her renal US was unremarkable in 2012. Nov, Vitamin D deficiency (ICD-10 - E55.9) She has a secondary hyperparathyroidism due to the vitamin D deficiency. I have prescribed oral ergocalciferol 50,000 unit once weekly. Nov, Hypertensive chronic kidney disease with stage 1 through stage 4 chronic kidney disease, or unspecified chronic kidney disease (ICD-10 - I12.9) Blood pressure is Controlled. Continue current medications Nov, Secondary hyperparathyroidism (ICD-10 - N25.81) She has a secondary hyperparathyroidism due to the CKD and Vit D deficiency but her calcium and phosphorus are within normal limit. Nov, Hyperuricemia (ICD-1 0 - E79.0) She has hyperuricemia due to CKD but denies any gout flare. Will monitor without any medications. [employer] Other 06-15-2023 Hospital Discharge instructions* Discharge Instructions* Chino Nielsen MD - 09/18/2022 4:14 PM EDT Discharge Instructions Admission Date: 09/17/2022 Discharge Date: 09/18/22 Disposition: Home Activity: As tolerated Diet: Diabetic / Cardiac Discharge Instructions: Resume previous home medication but stop Vesicare. Take Amlodipine 5 mg daily. Take Flomax 0.4 mg daily. Activity: As tolerated. Diet: Diabetic / Cardiac. Follow up with Dr. Hernandez in 2 weeks. Follow up with Dr. Delarosa in 6 to 8 weeks. Follow up with Obed Dunn MD in 1 week. * Attachments The following attachments cannot be sent through Care Everywhere. * Amlodipine Oral Tablet 2.5 mg - 5 mg - 10 mg (Senegalese) * Tamsulosin HCl Oral Capsule 0.4 mg (Senegalese) documented in this encounterB[facility] History of Present illness Narrative* VERNON Catherine - 09/18/2022 2:57 PM EDT Met with Patient during quality flow rounding this a.m. to discuss discharge planning. Patient is a71 year old , white female, admitted with a diagnosis of Chest Pain. Patient is alert and oriented, polite and cooperative with this assessment. States that she wishes to return home with family when deemed medically stable for discharge. Patient lives with her daughter and granddaughter's in an upstairs apartment in [place]. She uses aglucometer, BP cuff, walker and cane at home for assistance. Patient is ordinarily independent withher ADL's. She is retired. History of BiPolar disorder and CVA noted. Patient drives herself some but relies mostly on her family for her transportation needs. PCP is Dr. Dunn. Patient has medical insurance and denies needing further financial assistance with the cost of her prescription medications at this point. Discharge plan will be home with family when stable. Patient is a 'Full Code' status and verbalizesthat she is not ready to execute Advanced Directives at this time. No unmet or anticipated needs or concerns identified by Patient. CRITICAL CARE NURSE to monitor and assist with any/all needs as they present. VERNON Catherine 09/18/2022 * Oni Delarosa MD - 09/18/2022 2:36 PM EDT Cardiology Echo: Normal LV function, EF 60% Mild MR and TR K 8 [employer]OL [employer]AL: I felt there is a small amount of apical ischemia. Would not do cardiac cath at this time. Would place her on Norvasc 5 mg daily both for BP and antianginal therapy. Will see in 6-8 weeks to see effect of therapy. Thanks, Oni Delarosa MD * Karyn Branch RN - 09/18/2022 12:38 PM EDT Ticket to ride completed. The following information was reported off: Name Allergies Orientation Level Destination Safety Issues Code Status Oxygen Requirements Special needs including mobility, language, communication * Sarah Rosario RN - 09/18/2022 11:26 AM EDT Lexiscan administered, pt coughs and reports headache. 11:28 Pt reports stomach hurts denies chest pain or shortness of breath. 11:31 This part of test completed, pt given snack and beverage. * Karyn Branch RN - 09/18/2022 11:15 AM EDT Ticket to ride completed. The following information was reported off: Name Allergies Orientation Level Destination Safety Issues Code Status Oxygen Requirements Special needs including mobility, language, communication * Oni Delarosa MD - 09/18/2022 6:57 AM EDT Cardiology Full consult dictated CP somewhat atypical IDDM Htn EKG: normal She has been having cp for 4-6 months. Atypical in that it can happen at any time. Yesterday occurred while in store. Doing well now. Will do Lexiscan and echo and if ok, can discharge later today. Thanks, Oni Delarosa MD * Bandar Dudley RN - 09/18/2022 6:13 AM EDT Patient experiencing urinary frequency throughout the night. Patient and daughter reported this is normal for her , she is seeing neurology for this issue. This am she started complaining of bladder pain even after voiding. Dr. Nielsen notified, orders for post void residual received. Nurse bladder scanned patient and noted 459 ml of urine in bladder. Dr. Nielsen updated and orders to straight cath andconsult Urology were received. Patient straight cathed using sterile technique, and 750 Ml urine emptied from bladder. Patient reports pain relief immediately. called to make aware of consult. documented in this encounterB[facility] Evaluation note* Encounter Date Diagnosis Assessment Notes Treatment Notes Treatment Clinical Notes Apr, Type 2 diabetes mellitus with diabetic chronic kidney disease (ICD-10 - E11.22) Her Blood sugars are within the acceptable range. I have advised her to continue to work with PCP for DM management. She has no evidence of proteinuria. Continue current dose of lisinopril. I will explained that she may benefit with SGLT2 inhibitors including Farxiga or Jardiance or Invokana. She can discuss with her PCP about it. I explained to her and daughter that due to her risk of hypotension and hyperkalemia will not prescribe Kerendia for now. Apr, Chronic kidney disea se, stage III (moderate) (ICD-10 - N18.30) She has CKD due to DM and HTN. Her serum Creatinine is 1.0-1.2 mg/dl. I have discussed with her the importance of good DM to control to slow down the progression of disease. Her renal US was unremarkable in 2012. Apr, Vitamin D deficiency (ICD-10 - E55.9) She has a secondary hyperparathyroidism due to the vitamin D deficiency. I have prescribed oral ergocalciferol 50,000 unit once weekly. Apr, Hypertensive chronic kidney disease with stage 1 through stage 4 chronic kidney disease, or unspecified chronic kidney disease (ICD-10 - I12.9) Blood pressure is Controlled. Continue current medications Apr, Secondary hyperparathyroidism (ICD-10 - N25.81) She has a secondary hyperparathyroidism due to the CKD and Vit D deficiency but her calcium and phosphorus are within normal limit. Apr, Asymptomatic bacteriuria (ICD-10 - R82.71) She has asymptomatic bacteriuria so we will not prescribe antibiotics. Apr, Hyperuricemia (ICD-1 0 - E79.0) She has hyperuricemia due to CKD but denies any gout flare. Will monitor without any medications. [employer] Other 11-11-2022 History of Present illness Narrative* Amanda Hobson, PT - 02/14/2022 1:45 PM EST Images from the original note were not included. [facility] Outpatient Physical Therapy Daily Note Date: 02/14/2022 Patient Name: Sabina Canela : 1950 (71 y.o.) Referring Provider (secondary): Dr. Jb Mcgowan Diagnosis: Right knee Osteoarthritis Treatment Diagnosis: R knee pain, Gait ataxia Onset Date: 12/31/21 Total # of Visits Approved: 12 Per Physician Order Total # of Visits to Date: 9 No Show: 1 Canceled Appointment: 0 Pre-Treatment Pain: 09/13 Assessment Assessment: LEFS-38/80, Pt followed up with Dr. Mcgowan today, will be receiving gel injections. Pt seen for last visit this date. Hip ABD= 4/5 B/L Plan Continue with current plan of care Exercises/Modalities/Manual: See DocFlow Sheet Education: Discharged this day to HEP Goals (Total # of Visits to Date: 9) Short Term Goals Time Frame for Short Term Goals: 6 visits Short Term Goal 1: Pt to report independence and compliance with HEP - MET STG Goal 1 Status:: Met Short Term Goal 2: Pt to have AROM 5deg FN to improve standing tanya. - MET STG Goal 2 Status:: Met Helmet Binder Goals Time Frame for Care Home Goals : 12 visits Care Home Goal 1: Pt to improve LEFS score from 51/80 to 61/80 to improve ADL tanya.-NOT MET LTG Goal 1 Status:: Not Met Helmet Binder Goal 2: Pt to have 100deg of knee flexion to improve stair tanya. - MET LTG Goal 2 Status:: Met Helmet Binder Goal 3: Pt to report worst pain 4/10 x3 consecutive days to improve ADL tanya.-NOT MET LTG Goal 3 Status:: Not Met Care Home Goal 4: Pt to have 4/5 hip ABD B/L to improve standing tanya-MET LTG Goal 4 Status:: Met Post Treatment Pain: 6/10 Time In: 1450 Time Out : 1430 Timed Code Treatment Minutes: 40 Minutes Total Treatment Time: 40 Minutes Amanda Hobson, PT Date: 02/14/2022 [facility] [employer] Work Phone: 1(483) 459-446611-11-2022 Hospital course Narrative* Amanda Hobson, PT - 02/14/2022 1:45 PM EST Images from the original note were not included. [facility] Outpatient Physical Therapy Discharge Summary Patient: Sabina Canela : 1950 Referring Provider (secondary): Dr. Jb Mcgowan Diagnosis: Right knee Osteoarthritis Date Treatment Initiated: 01/07/22 Date of Last Treatment: 02/14/22 PT Visit Information Onset Date: 12/31/21 Total # of Visits Approved: 12 Total # of Visits to Date: 9 No Show: 1 Canceled Appointment: 0 Frequency/Duration Days: 2 times per week Weeks: 6 weeks Treatment Received Patient Education/HEP, Therapeutic Exercise, Manual Therapy: Myofacial Release/Cupping, Manual Therapy: Mobilization/Manipulation, Neuro Re-ed, Gait Training, HP/CP, and Electrical Stimulation Pain Level: 6 Assessment Assessment: LEFS-38/80, Pt followed up with Dr. Mcgowan today, will be receiving gel injections. Pt seen for last visit this date. Hip ABD= 4/5 B/L Reason for Discharge Completion of Prescribed visits and Optimal Function Achieved Comments: Thank you for this referral Amanda Hobson, PT Date: 02/14/2022 [facility] [employer] Phone: [phone]) 661-901511-03-2022 History of Present illness Narrative* Rony ANUPAMA Crawford - 02/06/2022 1:00 PM EDT Images from the original note were not included. [facility] Outpatient Physical Therapy Daily Note Date: 02/06/2022 Patient Name: Sabina Canela : 1950 (71 y.o.) Referring Provider (secondary): Dr. Jb Mcgowan Diagnosis: Right knee Osteoarthritis Treatment Diagnosis: R knee pain, Gait ataxia Onset Date: 12/31/21 Total # of Visits Approved: 12 Per Physician Order Total # of Visits to Date: 8 No Show: 1 Canceled Appointment: 0 Pre-Treatment Pain: 10 Assessment Assessment: Patient states R knee pain is a 6/10 this afternoon. Completed strengthening exercises as outlined with good tolerance from patient. Discontinued IFC/HP this afternoon. Plan to continue x2 visits and D/C to HEP. Patient to follow up with Dr. Mcgowan on 02/14. Plan Continue with current plan of care Exercises/Modalities/Manual: See DocFlow Sheet Education: Goals (Total # of Visits to Date: 8) Short Term Goals Time Frame for Short Term Goals: 6 visits Short Term Goal 1: Pt to report independence and compliance with HEP - MET STG Goal 1 Status:: Met Short Term Goal 2: Pt to have AROM 5deg FN to improve standing tanya. - MET STG Goal 2 Status:: Met Care Home Goals Time Frame for Helmet Binder Goals : 12 visits Care Home Goal 1: Pt to improve LEFS score from 51/80 to 61/80 to improve ADL tanya. Helmet Binder Goal 2: Pt to have 100deg of knee flexion to improve stair tanya. - MET LTG Goal 2 Status:: Met Helmet Binder Goal 3: Pt to report worst pain 4/10 x3 consecutive days to improve ADL tanya. Care Home Goal 4: Pt to have 4/5 hip ABD B/L to improve standing tanya Post Treatment Pain: 6/10 Time In: 1302 Time Out : 1342 Timed Code Treatment Minutes: 40 Minutes Total Treatment Time: 40 Minutes Rony Crawford PTA Date: 02/06/2022 [facility] [employer] Phone: [phone] History of Present illness Narrative* Rony Crawford PTA - 02/03/2022 12:45 PM EDT Images from the original note were not included. [facility] Outpatient Physical Therapy Daily Note Date: 02/03/2022 Patient Name: Sabina Canela : 1950 (71 y.o.) Referring Provider (secondary): Dr. Jb Mcgowan Diagnosis: Right knee Osteoarthritis Treatment Diagnosis: R knee pain, Gait ataxia Onset Date: 12/31/21 Total # of Visits Approved: 12 Per Physician Order Total # of Visits to Date: 7 No Show: 1 Canceled Appointment: 0 Pre-Treatment Pain: 8/10 Assessment Assessment: Patient states R knee pain is an 8/10 this afternoon. Patient notes she feels a little stronger as she has been able to walk short distances at home without AD. Completed ex per flowsheetwith fair tolerance from patient. Concluded session with IFC/HP. Post IFC patient notes pain decreased to a 6/10. Plan to discontinue IFC at this time as 6 of 6 sessions used. Plan to continue with balance and strengthening ex x3 visits and potentially D/C. Plan Continue with current plan of care Exercises/Modalities/Manual: See DocFlow Sheet Education: Goals (Total # of Visits to Date: 7) Short Term Goals Time Frame for Short Term Goals: 6 visits Short Term Goal 1: Pt to report independence and compliance with HEP - MET STG Goal 1 Status:: Met Short Term Goal 2: Pt to have AROM 5deg FN to improve standing tanya. - MET STG Goal 2 Status:: Met Care Home Goals Time Frame for Helmet Binder Goals : 12 visits Helmet Binder Goal 1: Pt to improve LEFS score from 51/80 to 61/80 to improve ADL tanya. Care Home Goal 2: Pt to have 100deg of knee flexion to improve stair tanya. - MET LTG Goal 2 Status:: Met Helmet Binder Goal 3: Pt to report worst pain 4/10 x3 consecutive days to improve ADL tanya. Care Home Goal 4: Pt to have 4/5 hip ABD B/L to improve standing tanya Post Treatment Pain: 6/10 Time In: 1245 Time Out : 1330 Timed Code Treatment Minutes: 25 Minutes Total Treatment Time: 45 Minutes Rony Crawford PTA Date: 02/03/2022 [facility] [employer] Phone: [phone] History of Present illness Narrative* Rony Crawford PTA - 01/20/2022 12:45 PM EDT Images from the original note were not included. [facility] Outpatient Physical Therapy Daily Note Date: 01/20/2022 Patient Name: Sabina Canela : 1950 (71 y.o.) Referring Provider (secondary): Dr. Jb Mcgowan Diagnosis: Right knee Osteoarthritis Treatment Diagnosis: R knee pain, Gait ataxia Onset Date: 12/31/21 Total # of Visits Approved: 12 Per Physician Order Total # of Visits to Date: 3 No Show: 1 Canceled Appointment: 0 Pre-Treatment Pain: 8/10 Assessment Assessment: Patient reports R knee pain is an 8/10 this afternoon. Patient states her L knee bothered her some after last session, but notes it was better the next day. Continued with knee strengthening and ROM exercises per flowsheet followed by IFC. Added HP to IFC this afternoon. Post IFC patient states R knee pain is a /10. Plan Continue with current plan of care Exercises/Modalities/Manual: See DocFlow Sheet Education: Goals (Total # of Visits to Date: 3) Short Term Goals Time Frame for Short Term Goals: 6 visits Short Term Goal 1: Pt to report independence and compliance with HEP Short Term Goal 2: Pt to have AROM 5deg FN to improve standing tanya. Care Home Goals Time Frame for Care Home Goals : 12 visits Care Home Goal 1: Pt to improve LEFS score from 51/80 to 61/80 to improve ADL tanya. Care Home Goal 2: Pt to have 100deg of knee flexion to improve stair tanya. Care Home Goal 3: Pt to report worst pain 4/10 x3 consecutive days to improve ADL tanya. Helmet Binder Goal 4: Pt to have 4/5 hip ABD B/L to improve standing tanya Post Treatment Pain: 6/10 Time In: 1245 Time Out : 1324 Timed Code Treatment Minutes: 24 Minutes Total Treatment Time: 39 Minutes Rony Crawford PTA Date: 01/20/2022 [facility] Phone: [phone]) 324-821610-06-2022 History of Present illness Narrative* Rony Crawford PTA - 01/09/2022 1:30 PM EDT [facility] Date: 01/09/2022 Patient Name: Sabina Canela : 1950 Pt No Showed Appt Rony Crawford PTA Date: 01/09/2022 documented in [facility] Phone: [phone] 461-446110-04-2022 History of Present illness Narrative* Amanda Hobson PT - 01/07/2022 2:00 PM EDT Images from the original note were not included. [facility] Out[facility] Physical Therapy Evaluation Date: 01/07/2022 Patient: Sabina Canela : 1950 Referring Provider (secondary): Dr. Jb Mcgowan Diagnosis: Right knee Osteoarthritis Treatment Diagnosis: R knee pain, Gait ataxia Onset Date: 12/31/21 Total # of Visits Approved: 12 Per Physician Order Total # of Visits to Date: 1 No Show: 0 Canceled Appointment: 0 Subjective Additional Pertinent Hx: Pt reports pain has been 8-9/10 for 2-3 months, decreased walking tanya, standing tanya and sleeping tanya. Stairs are very difficult also. Pt reports pain is constant. Pain Assessment Pain Level: 9 Objective Observation/Palpation Palpation: Patellar mobility wfl, Paiful medial joint line Strength RLE R Hip Flexion: 3/5 R Hip Extension: 3-/5 R Hip ABduction: 3+/5 R Knee Extension: 3+/5 R Ankle Dorsiflexion: 5/5 AROM RLE (degrees) R Knee Flexion 0-145: 80deg, 72deg heelslide R Knee Extension 0: 7deg FN Strength LLE L Hip Flexion: 4/5 L Hip ABduction: 3+/5 L Knee Flexion: 3+/5 L Knee Extension: 4+/5 L Ankle Dorsiflexion: 4/5 AROM RLE (degrees) R Knee Flexion 0-145: 80deg, 72deg heelslide R Knee Extension 0: 7deg FN Assessment Body Structures, Functions, Activity Limitations Requiring Skilled Therapeutic Intervention: Decreased ROM, Decreased functional mobility , Decreased ADL status, Decreased strength, Decreased endurance, Decreased balance, Decreased high-level IADLs, Increased pain, Decreased posture Assessment: Pt to benefit from ther ex from ROM, Hip and knee strengthening. Pt to also benefit IFC/CP for pain and swelling relief of medial knee. Therapy Prognosis: Good Clinical Presentation: Evolving The Following Comorbities will impact the patient s progression and Plan of Care: Cardiac Disease/Pacemaker, Diabetes, and Previous Orthopedic Injury/Surgery Medium Complexity Education: POC; IFC purpose and benefit Learning Does the patient/guardian have any barriers to learning?: No barriers Goals Short Term Goals Time Frame for Short Term Goals: 6 visits Short Term Goal 1: Pt to report independence and compliance with HEP Short Term Goal 2: Pt to have AROM 5deg FN to improve standing tanya. Care Home Goals Time Frame for Care Home Goals : 12 visits Care Home Goal 1: Pt to improve LEFS score from 51/80 to 61/80 to improve ADL tanya. Care Home Goal 2: Pt to have 100deg of knee flexion to improve stair tanya. Care Home Goal 3: Pt to report worst pain 4/10 x3 consecutive days to improve ADL tanya. Helmet Binder Goal 4: Pt to have 4/5 hip ABD B/L to improve standing tanya Patient's Goal: Patient Goals : Be able to improve her knee pain so she can do more ADLs. Timed Code Treatment Minutes: 0 Minutes Total Treatment Time: 50 Time In: 1405 Time Out: 1455 Amanda Hobson, KASHMIR Date: 01/07/2022 [facility] [employer] Work Phone: [phone]) 104-119306-21-2022 Evaluation note* Encounter Date Diagnosis Assessment Notes Treatment Notes Treatment Clinical Notes Sep, Type 2 diabetes mellitus with diabetic chronic kidney disease (ICD-10 - E11.22) Her Blood sugars are within the acceptable range. I have advised her to continue to work with PCP for DM management. She has no evidence of proteinuria. Continue current dose of losartan. Sep, Chronic kidney disea se, stage III (moderate) (ICD-10 - N18.30) She has CKD due to DM and HTN. Her serum Creatinine is 1.3 mg/dl. I have discussed with her the importance of good DM to control to slow down the progression of disease. Her renal US was unremarkable in 2012. Sep, Vitamin D deficiency (ICD-10 - E55.9) She has a secondary hyperparathyroidism due to the vitamin D deficiency. I have prescribed oral ergocalciferol 50,000 unit once weekly. Sep, Hypertensive chronic kidney disease with stage 1 through stage 4 chronic kidney disease, or unspecified chronic kidney disease (ICD-10 - I12.9) Blood pressure is Controlled. Continue current medications Sep, Secondary hyperparathyroidism (ICD-10 - N25.81) She has a secondary hyperparathyroidism due to the CKD PNC but her calcium and phosphorus are within normal limit. Sep, Asymptomatic bacteriuria (ICD-10 - R82.71) She has asymptomatic bacteriuria so we will not prescribe antibiotics. Sep, Hyperuricemia (ICD-1 0 - E79.0) She has hyperuricemia due to CKD but denies any gout flare. Will monitor without any medications. [id number] Other 11-12-2021 History of Present illness Narrative* Rosie Dior - 02/15/2021 12:45 PM EST Images from the original note were not included. [facility] Out[facility] Physical Therapy Daily Note Date: 02/15/2021 Patient Name: Sabina Canela : 1950 (70 y.o.) Referring Practitioner: Dr. Obed Dunn Referral Date : 01/28/21 Diagnosis: Imbalance Treatment Diagnosis: Gait distrubances Onset Date: 12/29/20 PT Insurance Information: $40 co-pay [facility] guidelines Total # of Visits Approved: 12 Per Physician Order Total # of Visits to Date: 11 No Show: 0 Canceled Appointment: 0 Plan of Care/Certification Expiration Date: 02/21/21 Pre-Treatment Pain: 5/10 Assessment Assessment: Patient reports some pain this afternoon and rates s 5/10. Does not specify where the pain is. Continues with exercises as outlined above. Balance is improved from previous visit as she is able to maintain tandem stance for 10 sec 3 x. B hip ABD strength is 4/15. Continue x 2 visits andthen plan possible D/C. Chart Reviewed: Yes Plan Plan: Continue with current plan Exercises/Modalities/Manual: See DocFlow Sheet Education: Barriers to Learning: None Goals (Total # of Visits to Date: 11) Short Term Goals - Time Frame for Short term goals: 6 visits Short term goal 1: Pt to report independence and compliance with HEP for ROM and strengthening to promote improved balance. - MET Short term goal 2: Pt to complete Narrow JOSE on level surface x10sec 2:3trials to improve balance in the home. - MET Care Home Goals - Time Frame for [facility] goals : 12 visits (POC exp 02/21/21) [facility] goal 1: Pt to score >57/80 on LEFS to improve pt ADL tanya. [facility] goal 2: Pt to have 4/5 hip ABD strength to improve standing and walking tanya.-MET oil heaterman goal 3: Pt to have 40deg of R Hip ER to improve tanya to donning shoe and sock. - MET [facility] goal 4: Pt to maintain Narrow JOSE on Aeromat 10sec 2:3 trials to improve outdoor amb safety. - MET Post Treatment Pain: 07/14 Time In: 1245 Time Out : 1317 Timed Code Treatment Minutes: 32 Minutes Total Treatment Time: 32 Minutes Rosie Dior,ADJUNCT LATIN PROFESSOR Date: 02/15/2021 documented in this [facility] Phone: [phone]) 789-802610-21-2021 History of Present illness Narrative* Amanda Hobson, PT - 01/24/2021 1:00 PM EDT Images from the original note were not included. [facility] Out[facility] Physical Therapy Daily Note Date: 01/24/2021 Patient Name: Sabina Canela : 1950 (70 y.o.) Referring Practitioner: Dr. Obed Dunn Referral Date : 01/28/21 Diagnosis: Imbalance Treatment Diagnosis: Gait distrubances Onset Date: 12/29/20 PT Insurance Information: $40 co-pay [facility] guidelines Total # of Visits Approved: 12 Per Physician Order Total # of Visits to Date: 5 No Show: 0 Canceled Appointment: 0 Pre-Treatment Pain: 0/10 Assessment Assessment: Pt continues to note fatigue post PT. But pt reports no pain during or after PT. Pt able to complete Narrow JOSE 10 sec hold this date without UE assist so added head turns to improve functional/dynamic balance. Progressed balance activity and reps with good tanya this date. Chart Reviewed: Yes Plan Plan: Continue with current plan Exercises/Modalities/Manual: See DocFlow Sheet Education: see assessment Barriers to Learning: None Goals (Total # of Visits to Date: 5) Short Term Goals - Time Frame for Short term goals: 6 visits Short term goal 1: Pt to report independence and compliance with HEP for ROM and strengthening to promote improved balance.-MET Short term goal 2: Pt to complete Narrow JOSE on level surface x10sec 2:3trials to improve balance in the home.-MET Helmet Binder Goals - Time Frame for [facility] goals : 12 visits [facility] goal 1: Pt to score >57/80 on LEFS to improve pt ADL tanya. oil heaterman goal 2: Pt to have 4/5 hip ABD strength to improve standing and walking tanya. [facility] goal 3: Pt to have 40deg of R Hip ER to improve tanya to donning shoe and sock. oil heaterman goal 4: Pt to maintain Narrow JOSE on Aeromat 10sec 2:3 trials to improve outdoor amb safety. Post Treatment Pain: 0/10 Time In: 1300 Time Out: 1335 Timed Code Treatment Minutes: 35 Minutes Total Treatment Time: 35 Minutes Amanda Hobson, PT Date: 01/24/2021 documented in this [facility] Phone: 1(121) 354-225010-18-2021 History of Present illness Narrative* Rony Crawford, ANUPAMA - 01/21/2021 12:45 PM EDT Images from the original note were not included. [facility] Out[facility] Physical Therapy Daily Note Date: 01/21/2021 Patient Name: Sabina Canela : 1950 (70 y.o.) Referring Practitioner: Dr. Obed Dunn Referral Date : 01/28/21 Diagnosis: Imbalance Treatment Diagnosis: Gait distrubances Onset Date: 12/29/20 PT Insurance Information: $40 co-pay [facility] guidelines Total # of Visits Approved: 12 Per Physician Order Total # of Visits to Date: 4 No Show: 0 Canceled Appointment: 0 Pre-Treatment Pain: 0/10 Assessment Assessment: Patient denies pain this afternoon. Continued with balance and strengthening exercises as outlined. Patient lost balance during session numerous times, but was able to correct self each time. Post session patient notes some LE fatigue, but no pain. Will continue to progress as able. Chart Reviewed: Yes Plan Plan: Continue with current plan Exercises/Modalities/Manual: See DocFlow Sheet Education: Barriers to Learning: None Goals (Total # of Visits to Date: 4) Short Term Goals - Time Frame for Short term goals: 6 visits Short term goal 1: Pt to report independence and compliance with HEP for ROM and strengthening to promote improved balance. Short term goal 2: Pt to complete Narrow JOSE on level surface x10sec 2:3trials to improve balance in the home. Care Home Goals - Time Frame for oil heaterman goals : 12 visits [facility] goal 1: Pt to score >57/80 on LEFS to improve pt ADL tanya. oil heaterman goal 2: Pt to have 4/5 hip ABD strength to improve standing and walking tanya. oil heaterman goal 3: Pt to have 40deg of R Hip ER to improve tanya to donning shoe and sock. [facility] goal 4: Pt to maintain Narrow JOSE on Aeromat 10sec 2:3 trials to improve outdoor amb safety. Post Treatment Pain: 0/10 Time In: 1250 Time Out : 1325 Timed Code Treatment Minutes: 35 Minutes Total Treatment Time: 35 Minutes Rony Crawford PTA Date: 01/21/2021 documented [facility] this [facility] Work Phone: [phone]) 512-944610-14-2021 History of Present illness Narrative* Amanda Hobson, PT - 01/17/2021 1:00 PM EDT Images from the original note were not included. [facility] Therapy Daily Note Date: 01/17/2021 Patient Name: Sabina Canela : 1950 (70 y.o.) Referring Practitioner: Dr. Obed Dunn Referral Date : 01/28/21 Diagnosis: Imbalance Treatment Diagnosis: Gait distrubances Onset Date: 12/29/20 PT Insurance Information: $40 co-pay [facility] guidelines Total # of Visits Approved: 12 Per Physician Order Total # of Visits to Date: 3 No Show: 0 Canceled Appointment: 0 Pre-Treatment Pain: 0/10 Assessment Assessment: Pt cleared of head injury at ER after last session. Pt was walking down hallway when she fell, not bending over. Pt reports noted fatigue post last session but no pain/soreness. Progressed S/L press this date to 2C with good tanya. Chart Reviewed: Yes Plan Plan: Plan of care initiated Exercises/Modalities/Manual: See DocFlow Sheet Education: POC, progression of S/L PRess Barriers to Learning: None Goals (Total # of Visits to Date: 3) Short Term Goals - Time Frame for Short term goals: 6 visits Short term goal 1: Pt to report independence and compliance with HEP for ROM and strengthening to promote improved balance. Short term goal 2: Pt to complete Narrow JOSE on level surface x10sec 2:3trials to improve balance in the home. Care Home Goals - Time Frame for oil heaterman goals : 12 visits oil heaterman goal 1: Pt to score >57/80 on LEFS to improve pt ADL tanya. [facility] goal 2: Pt to have 4/5 hip ABD strength to improve standing and walking tanya. [facility] goal 3: Pt to have 40deg of R Hip ER to improve tanya to donning shoe and sock. oil heaterman goal 4: Pt to maintain Narrow JOSE on Aeromat 10sec 2:3 trials to improve outdoor amb safety. Post Treatment Pain: 0/10 Time In: 1300 Time Out : 1340 Timed Code Treatment Minutes: 40 Minutes Total Treatment Time: 40 Minutes Amanda Hobson, PT Date: 01/17/2021 documented in this [facility] Work Phone: 1([phone]) 690-771610-11-2021 History of Present illness Narrative* Ed Candi Davidson - 01/14/2021 11:15 AM EDT [facility] Date: 01/14/2021 Patient Name: Sabina Canela : 1950 Pt Cancelled Appt due to daughter can't get off work early enough to get patient here, rescheduled appointment for 12:45 tomorrow. Candi Stuart Ward Date: 01/14/2021 documented in this [facility] Phone: [phone]) 283-304710-07-2021 History of Present illness Narrative* Amanda Hobson, PT - 01/10/2021 1:00 PM EDT Images from the original note were not included. [facility] Therapy Evaluation Date: 01/10/2021 Patient: Sabina Canela : 1950 Referring Practitioner: Dr. Obed Dunn Referral Date : 01/28/21 Diagnosis: Imbalance Treatment Diagnosis: Gait distrubances Onset Date: 12/29/20 PT Insurance Information: $40 co-pay [facility] guidelines Total # of Visits Approved: 12 Per Physician Order Total # of Visits to Date: 1 No Show: 0 Canceled Appointment: 0 Subjective Additional Pertinent Hx: Pt had a suspected TIA end of October and then was found to have blood clots in the lungs. Now on elequis. Pt has stairs at home 7 step entry/and exit. R ascending Hand rail. Ptreports she feels weak and off balance. Pt reports she is able to complete household dishes ~5 dishes. Pain Screening Patient Currently in Pain: Denies Objective Observation/Palpation Posture: Fair Strength RLE R Hip Flexion: 3+/5 R Hip Extension: 3+/5 R Hip ABduction: 3+/5 R Hip ADduction: 4/5 R Knee Extension: 4+/5 R Ankle Dorsiflexion: 5/5 Strength LLE L Hip Flexion: 4/5 L Hip Extension: 3+/5 L Hip ABduction: 3+/5 L Hip ADduction: 4+/5 L Knee Extension: 5/5 L Ankle Dorsiflexion: 4+/5 Assessment Prognosis: Good Decision Making: Medium Complexity Exam: LEFS=47/80 Clinical Presentation: Evolving The Following Comorbities will impact the patient s progression and Plan of Care: Cardiac Disease/Pacemaker, Diabetes, Obesity and TIA Activity Tolerance: Patient Tolerated treatment well Education: POC; HEP: Hip ER fall out, Hip ABD in hooklying with tband Barriers to Learning: None Goals Short term goals Time Frame for Short term goals: 6 visits Short term goal 1: Pt to report independence and compliance with HEP for ROM and strengthening to promote improved balance. Short term goal 2: Pt to complete Narrow JOSE on level surface x10sec 2:3trials to improve balance in the home. oil heaterman goals Time Frame for [facility] goals : 12 visits oil heaterman goal 1: Pt to score >57/80 on LEFS to improve pt ADL tanya. [facility] goal 2: Pt to have 4/5 hip ABD strength to improve standing and walking tanya. [facility] goal 3: Pt to have 40deg of R Hip ER to improve tanya to donning shoe and sock. oil heaterman goal 4: Pt to maintain Narrow JOSE on Aeromat 10sec 2:3 trials to improve outdoor amb safety. Patient's Goal: Be able to walk and feel more secure Timed Code Treatment Minutes: 10 Minutes Total Treatment Time: 60 Time In: 1300 Time Out: 1400 Amanda Hobson, PT Date: 01/10/2021 [facility] Phone: [phone]) 673-573709-15-2021 Hospital Discharge instructions* Instructions* Tamika Varghese RN - 2020 Needle Biopsy: What to Expect at Home (thyroid, neck, axilla, etc) Your Recovery During your biopsy, your doctor placed a thin needle through your skin to take a sample of tissue. This may have been done to find what is causing a lump or growth. You may find it uncomfortable to lie still. The biopsy site may be sore and tender for 1 to 2 days. This care sheet gives you a general idea about how long it will take for you to recover, but each person recovers at a different pace. Follow the steps below to feel better as quickly as possible. How can you care for yourself at home? Activity Rest when you feel tired. Getting enough sleep will help you recover. Diet You can eat your normal diet. If your stomach is upset, try bland, low-fat foods like plain rice, broiled chicken, toast, and yogurt. Medicines Your doctor will tell you if and when you can restart your medicines. He or she will also give you instructions about taking any new medicines. If you take blood thinners, such as warfarin (Coumadin), clopidogrel (Plavix), or aspirin, be sure to talk to your doctor. He or she will tell you if and when to start taking those medicines again. Make sure that you understand exactly what your doctor wants you to do. Take pain medicines exactly as directed. If the doctor gave you a prescription medicine for pain, take it as prescribed. If you are not taking a prescription pain medicine, ask your doctor if you can take an [id number] medicine. Ice may also applied to site for 15-20 minutes every hour as needed. (Place light cloth between iceand skin to prevent injury). If you think your pain medicine is making you sick to your stomach: Take your medicine after meals (unless your doctor has told you not to). Ask your doctor for a different pain medicine. Incision care Keep the biopsy site covered and dry for 24 hours. A small amount of bleeding from the biopsy site can be expected. Ask your doctor how much drainage to expect. Follow-up care is a stinson part of your treatment and safety. Be sure to make and go to all appointments, and call your doctor if you are having problems. It's also a good idea to know your test resultsand keep a list of the medicines you take. When should you call for help? Call 911 anytime you think you may need emergency care. For example, call if: You have severe trouble breathing. Call your doctor now or seek immediate medical care if: You have a lot of bleeding through the bandage. You have new or worsening pain. You have symptoms of infection, such as: Increased pain, swelling, warmth, or redness. Red streaks leading from the biopsy site. Pus draining from the biopsy site. A fever. Watch closely for any changes in your health, and be sure to contact your doctor if: You're not getting better as expected. You notice a change in your voice. [facility] Phone: [phone]) [phone] History of Present illness Narrative* Rosa Cleary RN - 2020 1:20 PM EDT Patient discharged to home with daughter. Patient ambulatory and has all belongings. * Rosa Cleary RN - 2020 1:15 PM EDT Discharge instructions given to patient and patient's daughter, both voice understanding. * Rosa Cleary RN - 2020 12:33 PM EDT Patient assisted to high fowlers position. Denies dizziness/lightheadedness. Right axillary bx siteremains clean/dry/intact with tip stop in place, area soft no signs/sx of hematoma. Will continue to monitor. * Rosa Cleary RN - 2020 12:00 PM EDT Patient returned to pre/post area. Alert and oriented, denies pain. Patient laying on right side. Denies any needs. Will continue to monitor. * Rosa Cleary RN - 2020 11:00 AM EDT Inpatients must meet criteria 1 through 7. 1. Minimum 30 minutes after last dose of sedative medication, minimum 120 minutes after last dose of reversal agent. Yes 2. Systolic BP stable within 20 mmHg for 30 minutes & systolic BP between 90 & 180 or within 10 mmHg of baseline. Yes 3. Pulse between 60 and 100 or within 10 bpm of baseline. Yes 4. Spontaneous respiratory rate >/= 10 per minute. Yes 5. SaO2 >/= 95 or >/= baseline. Yes 6. Able to cough and swallow or return to baseline function. Yes 7. Alert and oriented or return to baseline mental status. Yes 8. Demonstrates controlled, coordinated movements, ambulates with steady gait, or return to baseline activity function. Yes 9. Minimal or no pain or nausea, or at a level tolerable and acceptable to patient. Yes 10. Takes and retains oral fluids as allowed. Yes 11. Procedural / perioperative site stable. Minimal or no bleeding. Yes 12. If GI endoscopy procedure, minimal or no abdominal distention or passing flatus. N/A 13. Written discharge instructions and emergency telephone number provided. Yes 14. Accompanied by a responsible adult. Yes Adult patient discharged from facility without responsible person meets above criteria plus the following: a) remains awake without stimulus for 30 minutes b) oriented appropriate for age c) all vital signs stable d) no significant risk of losing protective reflexes e) able to maintain pre-procedure mobility without assistance f) no nausea or dizziness g) transportation arrangements that do not require patient to operate motor Vehicle. N/A [facility] Phone: 1(455) 706-552008-21-2021 History of Present illness Narrative* Vinh Sepulveda MD - 11/24/2020 5:31 PM EDT PULMONARY & CRITICAL CARE MEDICINE PROGRESS NOTE Patient: Sabina Canela Admit date: 11/22/2020 Primary Care Physician: Obed Dunn MD Consulting Physician: Justin Jefferson DO CODE Status: Full Code LOS: 2 SUBJECTIVE I personally interviewed/examined the patient, reviewed interval history and interpreted all available radiographic, laboratory data at the time of service. Chief Compliant/Reason for Initial Consult: Pulmonary embolism Brief Hospital Course: The patient is a 69 y.o. female history of diabetes hypertension hypothyroidism. According to patient for 2 to 3 days she was having left flank/upper quadrant pain she was evaluated in [facility] apparently a CT scan of the abdomen was done first which showed left lower lobe small effusion possible pneumonia and suspicion of pulmonary embolism in right lung base. CTA chest shows bilateral pulmonary embolism moderate burden with possible right ventricular strain. Patient has nonspecific mild mediastinal apathy but significant bilateral axillary lymphadenopathy on CT scan. CT scan of theabdomen shows iliac adenopathy. She did not have chest pain pleuritic pain dizziness syncope lightheadedness hemoptysis cough or shortness of breath. She does have history of chronic shortness of breath on exertion. She is very sedentary and obese. She does not complain of pedal edema but she does have bilateral pedal edema. There was no recent surgery, immobilization except sedentary lifestyle, air travel no previous history of malignancy no previous history of thromboembolism family history positive for thromboembolismin mother and sister. Apparently she had mammogram done recently which was reported negative. She did not have any surgeries except tubal ligation per patient. She is not a smoker. According to patient she had a colonoscopy 10 years ago. Interval History: 11/24/20 Overnight events noted, imaging studies seen other labs seen. Patient is on room air She did not complain of dizziness lightheadedness syncope she does not have chest pain left mid upper quadrant abdominal pain is intermittent. Denies hemoptysis. Denies shortness of breath at rest. Denies pedal edema. She is currently on Eliquis Review of Systems: Review of Systems Constitutional: Negative for activity change, fatigue, fever and unexpected weight change. HENT: Negative for nosebleeds, postnasal drip, sinus pain, sore throat, trouble swallowing and voice change. Eyes: Negative for photophobia, redness and visual disturbance. Respiratory: Negative for cough, shortness of breath and wheezing. Cardiovascular: Negative for chest pain, palpitations and leg swelling. Gastrointestinal: Negative for blood in stool, constipation, diarrhea and vomiting. Endocrine: Negative for polydipsia, polyphagia and polyuria. Genitourinary: Positive for flank pain. Negative for dysuria, frequency and hematuria. Musculoskeletal: Negative for arthralgias and back pain. Allergic/Immunologic: Negative. Neurological: Negative for dizziness, syncope, speech difficulty, light- headedness and headaches. Hematological: Negative for adenopathy. Does not bruise/bleed easily. Psychiatric/Behavioral: Negative. OBJECTIVE VITAL SIGNS: LAST- BP (!) 148/85 Pulse 62 Temp 98.2 F (36.8 C) (Oral) Resp 18 Ht 5' (1.524 m) Wt 212 lb 8.4 oz (96.4 kg) SpO2 95% BMI 41.51 kg/m 8-24 HR RANGE- TEMP Temp Av.1 F (36.7 C) Min: 97.7 F (36.5 C) Max: 98.6 F (37 C) BP Systolic (24hrs), Av , Min:98 , Max:148 Diastolic (24hrs), Av, Min:55, Max:85 PULSE Pulse Av.8 Min: 55 Max: 108 RR Resp Av Min: 18 Max: 18 O2 SAT SpO2 Av % Min: 95 % Max: 95 % OXYGEN DELIVERY No data recorded Systemic Examination: Physical Exam General appearance - looks comfortable and in no acute distress Mental status - alert, oriented to person, place, and time Mouth - mucous membranes moist, pharynx normal without lesions Neck - supple, no significant adenopathy. Positive bilateral axillary adenopathy is palpable nontender Chest - Chest was symmetrical without dullness to percussion. Breath sounds bilaterally were clear to auscultation. Slightly decreased breath sound at bases. There were no wheezes, rhonchi or rales. There is no intercostal recession or use of accessory muscles Heart - normal rate, regular rhythm, normal S1, S2, no murmurs, rubs, clicks or gallops Abdomen - soft, nontender, nondistended, no masses or organomegaly Neurological - alert, oriented, normal speech, no focal findings or movement disorder noted Extremities -positive bilateral pedal edema, no clubbing or cyanosis Skin - normal coloration and turgor, no rashes, no suspicious skin lesions noted DATA REVIEW Medications: Scheduled Meds: [START ON 11/25/2020] levothyroxine 88 mcg Oral Daily with breakfast apixaban 10 mg Oral BID sodium chloride flush 5-40 mL Intravenous 2 times per day insulin lispro 0-6 Units Subcutaneous TID WC insulin lispro 0-3 Units Subcutaneous Nightly aspirin 162 mg Oral Daily gabapentin 300 mg Oral TID OLANZapine 20 mg Oral Nightly primidone 50 mg Oral BID propranolol 120 mg Oral Daily QUEtiapine 100 mg Oral BID atorvastatin 20 mg Oral Daily Continuous Infusions: sodium chloride Stopped (11/24/20 1609) dextrose LABS:- ABG: No results for input(s): POCPH, POCPCO2, POCPO2, POCHCO3, XTIR2PQH in the last 72 hours. CBC: Recent Labs 11/22/20 0144 11/23/20 0637 WBC 6.0 5.5 HGB 11.5* 11.2* HCT 36.9 36.6 MCV 92.3 92.9 PLT 207 See Reflexed IPF Result RBC 4.00 3.94* MCH 28.8 28.4 MCHC 31.2 30.6 RDW 13.5 13.7 BMP: Recent Labs 11/23/20 0637 NA 135 K 3.9 CL 102 CO2 20 BUN 10 CREATININE 0.92* GLUCOSE 142* Liver Function Test: No results for input(s): PROT, LABALBU, ALT, AST, GGT, ALKPHOS, BILITOT in the last 72 hours. Amylase/Lipase: No results for input(s): AMYLASE, LIPASE in the last 72 hours. Coagulation Profile: Recent Labs 11/22/20 1337 11/23/20 0637 11/24/20 0653 INR -- 1.0 -- PROTIME -- 10.7 -- APTT 66.1* 73.2* 64.9* Cardiac Enzymes: No results for input(s): CKTOTAL, CKMB, CKMBINDEX, TROPONINI in the last 72 hours. Lactic Acid: No results found for: LACTA BNP: No results found for: BNP D-Dimer: No results found for: DDIMER Others: Lab Results Component Value Date TSH 7.60 (H) 11/23/2020 No results found for: NIKI, RHEUMFACTOR, SEDRATE, CRP No results found for: LABURIC, URICACID No results found for: IRON, TIBC, FERRITIN No results found for: SPEP, UPEP No results found for: PSA, CEA, CA125, SI2243, CA199 Input/Output: No intake or output data in the 24 hours ending 11/24/20 1731 Microbiology: No results for input(s): SPECDESC, SPECDESC, SPECIAL, CULTURE, CULTURE, STATUS, ORG, CDIFFTOXPCR, CAMPYLOBPCR, SALMONELLAPC, SHIGAPCR, SHIGELLAPCR, MPNEUG, MPNEUM, LACTOQL in the last 72 hours. Pathology: Radiology reports: US GALLBLADDER RUQ Final Result Negative right upper quadrant ultrasound. VL DUP LOWER EXTREMITY VENOUS BILATERAL Final Result IR BIOPSY LYMPH NODE SUPERFICIAL (Results Pending) Echocardiogram: No results found for this or any previous visit. Cardiac Catheterization: No results found for this or any previous visit. ASSESSMENT AND PLAN Assessment: //Acute bilateral pulmonary embolism with signs of right ventricular strain on CTA chest. //Axillary and mediastinal/hilar/iliac adenopathy. //Unlikely pneumonia //Minimal small pleural effusion secondary to pulmonary embolism //Diabetes mellitus //Hypertension //Probable obstructive sleep apnea //Obesity. Plan: Patient on Eliquis Patient has significant axillary adenopathy on exam. She has some iliac adenopathy. She has mild nonspecific. Patient pulmonary embolism is unprovoked until other hypercoagulable state like malignancy to be considered with lymphadenopathy. Appreciate help of hematology oncology Echocardiogram was reviewed and showed good LV function and normal right ventricular size and function Patient remains hemodynamically stable and is currently saturating well on room air Continue supplemental oxygen to keep oxygen saturation greater than 92% She will also likely need outpatient sleep study Antimicrobials reviewed; no need for antibiotic from pulmonary standpoint Physical/occupational/speech therapy; increase activity as tolerated I updated the patient regarding the current clinical condition, provisional diagnosis and management plan. I addressed concerns and answered all questions to the best of my abilities. It was my pleasure to evaluate Sabina Canela today. We will continue to follow. I would like to thank you for allowing me to participate in the care of this patient. Please feel free to call with any further questions or concerns. Vinh Sepulveda MD, M.D. Pulmonary and Critical Care Medicine 11/24/2020, 5:31 PM Please note that this chart was generated using voice recognition [employer] dictation software. Although every effort was made to ensure the accuracy of this automated contact lens manufacturer, some errors in contact lens manufacturer may have occurred. * Justin Jefferson, DO - 11/24/2020 3:24 PM EDT Images from the original note were not included. [facility] Office: [phone] Norris Kwan DO, Evangelista Mills DO, Ulices Joseph DO, Sonny Thomas DO, Daisy Plunkett MD, Lyndsay Easton MD, Nighat Frausto MD, Mora Barkley MD, Micaela Hu MD, Baudilio Mc MD, Jaswant Rees MD, Justin Jefferson DO, Myranda Ruff MD, Koby Huerta DO, Ford Null MD, Nicole Dickson DO, Maurilio Solano MD, Montez Gentile MD, Amber Schmidt MD, Michael Monterroso MD, Vladimir Nicholson MD, Ambrocio Campos MD, Alec Fiore MD, Kathleen Arreguin, ACTIVITY THERAPIST, Emma Araujo, ACTIVITY THERAPIST, Lisa Grier, ACTIVITY THERAPIST, Rosie Salecdo, HEALTHCARE MARKET CONSULTANT, Israel Medina, ACTIVITY THERAPIST, Yoly Haywood, ACTIVITY THERAPIST, Cristina Alcantar, ACTIVITY THERAPIST, Alexandra Garcia, ACTIVITY THERAPIST, Semaj Mathis, ACTIVITY THERAPIST, Ben Barry PA-C, Danyell Godoy, SOREN, Danii Cedeno, ACTIVITY THERAPIST, Pelon, ACTIVITY THERAPIST, Radha Gardner, ACTIVITY THERAPIST, Tessa Danielson, ACTIVITY THERAPIST, Alexandrea Hoover, ACTIVITY THERAPIST, Jia Franco, ACTIVITY THERAPIST, Morelia Gonzalez, ACTIVITY THERAPIST, Alison Cruz, ACTIVITY THERAPIST [facility] IN-PATIENT SERVICE [facility] Progress Note 11/24/2020 3:24 PM Name: Sabina Canela Acct: [id number] Room: [address] [place] [address] Day: 2 Admit Date: 11/22/2020 1:12 AM PCP: Obed Dunn MD Code Status: Full Code Subjective: C/C: LUQ abdominal pain Interval History Status: not changed. Pt seen and examined this afternoon. Daughter and brother are at bedside. Patient reports that she does not have any shortness of breath. Feeling well. Good appetite. Not hypoxic. Vitals stable. Brief History: Sabina Canela is a 69 y.o. Non- / non female who presents with and is admitted to the hospital for the management of PE (pulmonary thromboembolism) (HCC). Patient is a 69 yr old female with PMH DM2, HTN, and ANDREE who presented to [facility] ED with a one day history of left upper quadrant pain. She does report mild SOB. Her daughter is at bedside and states that her mom is very sedentary. The pt denies any recent long trips, traumas or surgery. The patient's brother is also present who reports a family history of blood clots in himself and a sister. The patient denies any leg swelling, cough, fever, chills or weight loss. She did just have a mammogram 11/14/2020 that was negative. The patient reports mild difficulty swallowing but passed a swallow study with small bites. Her family reports that she has slowed down quite a bit in the last several months. On CTA chest, patient was found to have bilat PE Rt > Lt. She has been placed on a Heparin gtt. Of note, she was also found to have bilateral axillary lymphadenopathy, mediastinal and left iliac lymphadenopathy. Review of Systems: Constitutional: negative for chills, fevers, sweats Respiratory: negative for cough, dyspnea on exertion, shortness of breath, wheezing Cardiovascular: negative for chest pain, chest pressure/discomfort, lower extremity edema, palpitations Gastrointestinal: Positive for abdominal pain, no constipation, diarrhea, nausea, vomiting Neurological: negative for dizziness, headache Medications: Allergies: No Known Allergies Current Meds: Scheduled Meds: levothyroxine 100 mcg Oral Daily with breakfast sodium chloride flush 5-40 mL Intravenous 2 times per day insulin lispro 0-6 Units Subcutaneous TID WC insulin lispro 0-3 Units Subcutaneous Nightly azithromycin 500 mg Intravenous Q24H cefTRIAXone (ROCEPHIN) IV 1,000 mg Intravenous Q24H aspirin 162 mg Oral Daily gabapentin 300 mg Oral TID OLANZapine 20 mg Oral Nightly primidone 50 mg Oral BID propranolol 120 mg Oral Daily QUEtiapine 100 mg Oral BID atorvastatin 20 mg Oral Daily Continuous Infusions: sodium chloride dextrose heparin (PORCINE) Infusion 14.004 Units/kg/hr (11/24/20 7393) PRN Meds: sodium chloride, acetaminophen OR acetaminophen, magnesium sulfate, ondansetron OR ondansetron, polyethylene glycol, potassium chloride OR potassium alternative oral replacementOR potassium chloride, sodium chloride flush, dextrose, dextrose, glucagon (rDNA), glucose, albuterol, guaiFENesin, heparin (porcine), heparin (porcine) Data: Past Medical History: has a past medical history of Benign essential tremor, Bipolar disorder (HCC), Diabetes mellitus (HCC), Hyperlipidemia, Hypertension, Hypothyroidism, and Neuropathy. Social History: reports that she has never smoked. She has never used smokeless tobacco. She reports that she does not drink alcohol and does not use drugs. Family History: Family History Problem Relation Age of Onset Stroke Mother Diabetes Father Diabetes Sister Clotting Disorder Brother Vitals: BP (!) 148/85 Pulse 62 Temp 98.2 F (36.8 C) (Oral) Resp 18 Ht 5' (1.524 m) Wt 212 lb 8.4 oz (96.4 kg) SpO2 95% BMI 41.51 kg/m Temp (24hrs), Av.1 F (36.7 C), Min:97.7 F (36.5 C), Max:98.6 F (37 C) Recent Labs 11/23/20 1207 11/23/20 1541 11/23/20 1910 11/24/20 0711 POCGLU 153* 95 207* 137* I/O (24Hr): No intake or output data in the 24 hours ending 11/24/20 1524 Labs: Hematology: Recent Labs 11/21/20 1721 11/22/20 0144 11/23/20 0637 WBC -- 6.0 5.5 RBC -- 4.00 3.94* HGB -- 11.5* 11.2* HCT -- 36.9 36.6 MCV -- 92.3 92.9 MCH -- 28.8 28.4 MCHC -- 31.2 30.6 RDW -- 13.5 13.7 PLT -- 207 See Reflexed IPF Result MPV -- 10.6 NOT REPORTED INR 1.1 -- 1.0 Chemistry: Recent Labs 11/21/20 1952 11/23/20 0637 NA -- 135 K -- 3.9 CL -- 102 CO2 -- 20 GLUCOSE -- 142* BUN -- 10 CREATININE -- 0.92* ANIONGAP -- 13 LABGLOM -- >60 GFRAA -- >60 CALCIUM -- 8.2* TROPHS 22* -- Recent Labs 11/22/20 0144 11/22/20 2121 11/23/20 0637 11/23/20 0903 11/23/20 1207 11/23/20 1541 11/23/20 1910 11/24/20 0711 LABA1C < > -- 6.8* -- -- -- -- -- TSH -- -- 7.60* -- -- -- -- -- POCGLU -- 144* -- 111* 153* 95 207* 137* < > = values in this interval not displayed. ABG:No results found for: POCPH, PHART, PH, POCPCO2, CJP6RTE, PCO2, POCPO2, PO2ART, PO2, POCHCO3, JNU3GKR, HCO3, NBEA, PBEA, BEART, BE, THGBART, THB, VBC1LNW, IEKB6CVL, D1ZPYLMO, O2SAT, FIO2 Lab Results Component Value Date/Time SPECIAL RIGHT HAND 11/21/2020 04:52 PM Lab Results Component Value Date/Time CULTURE NO GROWTH 3 DAYS 11/21/2020 04:52 PM Radiology: CT ABDOMEN PELVIS W IV CONTRAST Additional Contrast? None Result Date: 11/21/2020 Left lower lobe pneumonia and adjacent small effusion. Questionably in the right lung base there could be partially shown PEs although more likely this could be artifactual. Correlate with clinical/laboratory findings consider and CTA PE study to further evaluate. No specific finding in the left upper quadrant of the abdomen. Question of slight stranding around gallbladder, as well as nondilated appendix although these could be artifactual secondary to slight motion. Correlate with symptoms. (Above discussed with Dr. Ty on 11/21/2020 at 4:09 PM) Incidental findings below: Mild left iliac adenopathy and additional prominent lymph nodes described above. Consider short-term follow-up. Other i ncidental findings including indeterminate right adrenal nodule US GALLBLADDER RUQ Result Date: 11/23/2020 Negative right upper quadrant ultrasound. CTA CHEST W CONTRAST Result Date: 11/21/2020 1. Examination positive for pulmonary emboli. Pulmonary emboli predominantly right-sided involving the right main pulmonary artery, right upper lobe, right middle lobe, and right lower lobe pulmonaryarterial branches. There are also small filling defects noted within several left upper and lower lobe pulmonary arterial branches. There is mild straightening of the interventricular septum, raisingpossibility of RV strain. 2. Trace left pleural effusion with mild left basilar airspace opacity. 3. Several prominent, but subcentimeter short axis dimension, mediastinal hilar lymph nodes. There are also several enlarged bilateral axillary lymph nodes (bilateral axillary lymphadenopathy). Axillary lymphadenopathy requires further evaluation/workup. I discussed critical findings with Dr. Ty in the emergency department at 5:47 PM on 11/21/2020. Venous duplex LE bilat Summary No evidence of superficial or deep venous thrombosis in both lower extremities Physical Examination: General appearance: alert, cooperative and no distress, sitting up in chair at bedside Mental Status: oriented to person, place and time and flat affect Lungs: clear to auscultation bilaterally, normal effort Heart: regular rate and rhythm, no murmur Abdomen: soft, TTP left upper quadrant, obese, normal bowel sounds, no masses, hepatomegaly, splenomegaly Extremities: Trace edema bilat LE, no redness, tenderness in the calves Skin: no gross lesions, rashes, induration Assessment: Hospital Problems Last Modified POA * (Principal) PE (pulmonary thromboembolism) ([facility]) 11/23/2020 Yes Diabetes mellitus type 2, noninsulin dependent ([facility]) 11/22/2020 Yes Essential hypertension 11/22/2020 Yes Class 3 severe obesity in adult ([facility]) 11/22/2020 Yes Hypothyroid 11/22/2020 Yes Bipolar disorder ([facility]) 11/22/2020 Yes Plan: 1. Bilateral acute pulmonary emboli - remains on Heparin gtt. No recent travel, surgeries or trauma. Pt is very sedentary. No known recent Covid infection. 2d echo reviewed - no right heart strain noted. No DVT on dopplers. 1. Pt's siblings have had clots in the past, suspect underlying hypercoaguable state due to genetics. 2. Needs to follow up with heme-onc in the outpatient setting 2. Bilateral axillary lymphadenopathy, mediastinal and left iliac lymphadenopathy - may be an underlying malignancy. Can have outpatient biopsy performed, either with her PCP/referral or with out oncology service 3. DM2- BS stable, HbA1C- 6.8, SSI - continue home meds 4. Essential HTN- BP stable 5. ANDREE - on home meds stable 6. Hypothyroid - increased TSH, but free T4 is WNL. Continue home dose of synthroid. 7. Gi proph 8. PT/OT dw pt, daughter, and pt's brother. Questions answered OK for discharge today. Starting NOAC. JUSTIN JEFFERSON DO 11/24/2020 3:24 PM * Blake Leonard - 11/24/2020 8:56 AM EDT Echo completed at patient bedside. * Yue Hyde - 11/23/2020 4:16 PM EDT Occupational Therapy Occupational Therapy Initial Assessment Date: 11/23/2020 Patient Name: Sabina Canela : 1950 Date of Service: 11/23/2020 Copied from chart. Patient is a 69 yr old female with PMH DM2, HTN, and Bipolar disorder who presented to [facility] ED with a one day history of left upper quadrant pain. She does report mild SOB. Her daughter is at bedside and states that her mom is very sedentary. The pt denies any recent long trips, traumas or surgery. The patient's brother is also present who reports a family history of blood clots in himself and a sister. The patient denies any leg swelling, cough, fever, chills or weight loss. She did just have a mammogram 11/14/2020 that was negative. The patient reports mild difficulty swallowing but passed a swallow study with small bites. Her family reports that she has slowed down quite a bit in the last several months. On CTA chest, patient was found to have bilat PE Rt > Lt. She has been placed on a Heparin gtt. Discharge Recommendations: Patient would benefit from continued therapy after discharge OT Equipment Recommendations Equipment recommendations listed below are based on what the patient would need if they were able to return to prior living arrangements at the time of discharge. Equipment Needed: Yes Mobility Devices: ADL Assistive Devices ADL Assistive Devices: Shower Chair with back;Narcotics And Vice Detective;Long-handled Sponge Assessment Performance deficits / Impairments: Decreased functional mobility ;Decreased endurance;Decreased ADL status;Decreased posture;Decreased balance;Decreased safe awareness;Decreased high-level IADLs;Decreased cognition Assessment: Pt sitting in chair upon entrance. Pt participated in functional transfers with SBA andRW. Pt educated on proper use of RW and demo poor return. Pt required VCs for proper use of RW and still demo poor return. Pt participated in functional mobility with SBA and RW to/from bathroom. Pt used toilet with min A for controlled sitting and positioning and demo pericare ind. Pt washed hands standing at sink and leaned on sink. Pt reported leaning on sink at home. Pt returned to chair. Pt demo doffing/donning socks ind with figure four technique. Pt retired in chair. Pt will benefit fromcontinued OT services to increase independence, endurance and safety with ADLs and IADLs. Prognosis: Good Decision Making: Medium Complexity Patient Education: Pt educated on OT role, POC, gait belt, proper use of RW, safety with functionaltransfers, benefits of activity, and benefits of continued OT services. Pt demo fair understanding. REQUIRES OT FOLLOW UP: Yes Activity Tolerance Activity Tolerance: Patient Tolerated treatment well Safety Devices Safety Devices in place: Yes Type of devices: Call light within reach;Gait belt;Left in chair Restraints Initially in place: No Patient Diagnosis(es): There were no encounter diagnoses. has a past medical history of Benign essential tremor, Bipolar disorder (HCC), Diabetes mellitus (HCC), Hyperlipidemia, Hypertension, Hypothyroidism, and Neuropathy. has a past surgical history that includes Tubal ligation. Restrictions Restrictions/Precautions Restrictions/Precautions: Up as Tolerated Required Braces or Orthoses?: No Position Activity Restriction Other position/activity restrictions: up with assistance, O2 sat >92% Subjective General Patient assessed for rehabilitation services?: Yes Family / Caregiver Present: Yes (pt's brother and daughter present for first half of ev) General Comment Comments: RN ok'd for therapy this date. Pt agreeable, cooperative and pleasant throughout session Patient Currently in Pain: Denies Vital Signs Patient Currently in Pain: Denies Social/Functional History Social/Functional History Lives With: Family (dtr and 18 yo and 21 yr old grandkids; never alone per dtr) Type of Home: Apartment Home Layout: One level Home Access: Stairs to enter with rails Entrance Stairs - Number of Steps: 6-7 Entrance Stairs - Rails: Right Bathroom Shower/Tub: Tub/Shower unit Bathroom Toilet: Standard Bathroom Equipment: Grab bars in shower Home Equipment: 4 wheeled walker (no DME use at baseline) Receives Help From: Family ADL Assistance: Independent Homemaking Assistance: Needs assistance Homemaking Responsibilities: Yes (pt reports doing dishes. Daughter and grandkids do other duties) Ambulation Assistance: Independent Transfer Assistance: Independent Active Colorist Dyer: No Patient's Colorist Dyer Info: daughter drives pt Mode of Transportation: Car Occupation: On disability Leisure & Hobbies: watching TV, word search puzzle, spending time with family IADL Comments: Pt and daughter go to [id number] together. Daughter carries laundry down the stairs. Daughter always walks with pt up and down stairs to ensure safety. Daughter will carry items for pt up and down stairs. Additional Comments: pt reports supportive family. Pt is never home alone. Objective Vision: Impaired Vision Exceptions: Wears glasses at all times Hearing: Exceptions to WFL Hearing Exceptions: Hard of hearing/hearing concerns Orientation Overall Orientation Status: Within Functional Limits Observation/Palpation Posture: Fair Balance Sitting Balance: Stand by assistance (Pt sat edge of chair ~10 minutes. Pt demo 3 sitting LOB. Pt required to use one UE for support. Pt's LE barely reached floor d/t pt's height. Pt sat on toilet ~2minutes) Standing Balance: Stand by assistance Standing Balance Time: ~2 minutes Activity: edge of chair, at sink to wash hands Comment: SBA to ensure safety. With RW. Pt leaned on sink to wash hands and reported doing this at home. Functional Mobility Functional - Mobility Device: Rolling Walker Activity: To/from bathroom Assist Level: Stand by assistance Functional Mobility Comments: Pt educated on proper use of RW. Pt required VCs throughout for proper use and demo poor return. Pt does not use RW at baseline. Toilet Transfers Toilet - Technique: Ambulating Equipment Used: Standard toilet Toilet Transfer: Minimal assistance Toilet Transfers Comments: Toilet lower than chair and min A for controlled sitting and adjusting positioning on toilet ADL Feeding: Modified independent ;Setup Grooming: Modified independent ;Setup (pt washed hands standing at sink with set up. Pt leaned on sink and reported doing this at home) UE Bathing: Stand by assistance;Setup LE Bathing: Setup;Contact guard assistance UE Dressing: Setup;Stand by assistance LE Dressing: Setup;Contact guard assistance (pt donned/doffed socks with figure four tech ind when sitting in chair. Pt would require CGA for standing dressing task) Toileting: Setup;Minimal assistance (Pt used toilet with min A for controlled sitting and positioning. Pt demo pericare ind.) Tone RUE RUE Tone: Normotonic Tone LUE LUE Tone: Normotonic Coordination Movements Are Fluid And Coordinated: Yes Bed mobility Comment: pt in chair upon arrival and exit Transfers Sit to stand: Stand by assistance Stand to sit: Stand by assistance Transfer Comments: SBA to ensure safety. RW infront of pt Cognition Overall Cognitive Status: Exceptions Arousal/Alertness: Appropriate responses to stimuli Following Commands: Follows multistep commands with increased time Attention Span: Appears intact Memory: Appears intact Safety Judgement: Decreased awareness of need for assistance;Decreased awareness of need for safety Problem Solving: Assistance required to generate solutions;Assistance required to implement solutions Insights: Decreased awareness of deficits Initiation: Requires cues for some Cognition Comment: Pt failed to comply with safe RW use. Pt required assistance to problem solve toget automatic sink on. Pt required increased time when told to participate in functional mobility in a certain direction. Sensation Overall Sensation Status: WFL (pt denies numbness/tingling) LUE AROM (degrees) LUE AROM : WFL Left Hand AROM (degrees) Left Hand AROM: WFL RUE AROM (degrees) RUE AROM : WFL Right Hand AROM (degrees) Right Hand AROM: WFL LUE Strength Gross LUE Strength: WFL L Hand General: 4+/5 LUE Strength Comment: Grossly 4/5, except for hands RUE Strength Gross RUE Strength: WFL R Hand General: 4+/5 RUE Strength Comment: Grossly 4+/5 Plan Plan Times per week: 2-3x/wk Current Treatment Recommendations: Patient/Caregiver Education & Training, Equipment Evaluation, Education, & procurement, Balance Training, Functional Mobility Training, Endurance Training, Safety Education & Training, Self-Care / ADL AM-PAC Score AM-PAC Inpatient Daily Activity Raw Score: 20 (11/23/20 161) AM-PAC Inpatient ADL T-Scale Score : 42.03 (11/23/201617) ADL Inpatient CMS 0-100% Score: 38.32 (11/23/20 161) ADL Inpatient CMS G-Code Modifier : CJ (11/23/201617) Goals Short term goals Time Frame for Short term goals: by discharge, pt will Short term goal 1: participate in UB ADLs ind Short term goal 2: participate in LB ADLs mod ind of AE/LRD PRN Short term goal 3: participate in functional transfers/mobility with mod ind LRD PRN Short term goal 4: participate in standing functional activities for 15+ minutes with supervision to increase activity tolerance and standing balance Short term goal 5: demo 2 EC/WS techniques throughout functional activities with 1 VC to increase participation in ADLs and IADLs Therapy Time Individual Concurrent Group Co-treatment Time In 1505 Time Out 1530 Minutes 25 Timed Code Treatment Minutes: 20 Minutes Yue Hyde MSOT/S * Jackie Cardenas, PT - 11/23/2020 2:24 PM EDT Physical Therapy Facility/Department: [place] [id number] Initial Assessment NAME: Sabina Canela : 1950 Date of Service: 11/23/2020 Patient is a 69 yr old female with PMH DM2, HTN, and Bipolar disorder who presented to [facility] ED with a one day history of left upper quadrant pain. She does report mild SOB. Her daughter is at bedside and states that her mom is very sedentary. The pt denies any recent long trips, traumas or surgery. The patient's brother is also present who reports a family history of blood clots in himself and a sister. The patient denies any leg swelling, cough, fever, chills or weight loss. She did just have a mammogram 11/14/2020 that was negative. The patient reports mild difficulty swallowing but passed a swallow study with small bites. Her family reports that she has slowed down quite a bit in the last several months. On CTA chest, patient was found to have bilat PE Rt > Lt. She has been placed on a Heparin gtt. Of note, she was also found to have bilateral axillary lymphadenopathy, mediastinal and left iliac lymphadenopathy. Pt not found to have DVTs, but found to have B PEs. Discharge Recommendations: Further therapy recommended at discharge. dtr interested in having home PT for her mom; pt is agreeable. PT Equipment Recommendations Equipment Needed: No Assessment Pt is cooperative, unsteady on her feet without a device (she normally is independent without device). Dtr states pt is never home alone. Body structures, Functions, Activity limitations: Decreased functional mobility ;Decreased endurance;Decreased balance Prognosis: Good Decision Making: Medium Complexity PT Education: Goals;PT Role;Plan of Care Barriers to Learning: none REQUIRES PT FOLLOW UP: Yes Activity Tolerance Activity Tolerance: Patient Tolerated treatment well Patient Diagnosis(es): There were no encounter diagnoses. has a past medical history of Benign essential tremor, Bipolar disorder (HCC), Diabetes mellitus (HCC), Hyperlipidemia, Hypertension, Hypothyroidism, and Neuropathy. has a past surgical history that includes Tubal ligation. Restrictions Restrictions/Precautions Restrictions/Precautions: General Precautions, Fall Risk, Up as Tolerated Required Braces or Orthoses?: No Vision/Hearing Vision: Within Functional Limits Hearing: Within functional limits Subjective General Patient assessed for rehabilitation services?: Yes Response To Previous Treatment: Not applicable Family / Caregiver Present: Yes (dtr and brother) Follows Commands: Within Functional Limits Pain Screening Patient Currently in Pain: Denies Vital Signs Patient Currently in Pain: Denies Orientation Orientation Overall Orientation Status: Within Functional Limits (slow to respond but oriented) Social/Functional History Social/Functional History Lives With: Family (dtr and 18 yo and 21 yr old grandkids; never alone per dtr) Home Layout: One level Home Access: Stairs to enter with rails Entrance Stairs - Number of Steps: 6-7 Entrance Stairs - Rails: Right Home Equipment: 4 wheeled walker (per pt and dtr, she doesn't use her rollator) Receives Help From: Family ADL Assistance: Independent Ambulation Assistance: Independent Transfer Assistance: Independent Active Colorist Dyer: No (per dtr, pt hasn't been driving for the past 2-3 weeks d/t having a spell ) Objective Observation/Palpation Posture: Fair AROM RLE (degrees) RLE AROM: WFL AROM LLE (degrees) LLE AROM : WFL AROM RUE (degrees) RUE AROM : WFL AROM LUE (degrees) LUE AROM : WFL Strength RLE Strength RLE: WFL Strength LLE Strength LLE: WFL Strength RUE Strength RUE: WFL Strength LUE Strength LUE: WFL Tone RLE RLE Tone: Normotonic Tone LLE LLE Tone: Normotonic Motor Control Gross Motor?: WFL Sensation Overall Sensation Status: WFL Bed mobility Comment: pt up in chair upon PT arrival and retired to chair at end of PT session; assess in subsequent PT sessions Transfers Sit to Stand: Contact guard assistance Stand to sit: Contact guard assistance Stand Pivot Transfers: Contact guard assistance Ambulation Ambulation?: Yes More Ambulation?: Yes Ambulation 1 Surface: level tile Device: No Device Assistance: Contact guard assistance Quality of Gait: pt moves slowly, cautiously; reaching for railings Gait Deviations: Increased JOSE;Slow Stefany;Decreased step length;Decreased step height;Decreased arm swing;Decreased head and trunk rotation Distance: 120'x1 Ambulation 2 Surface - 2: level tile Device 2: Rolling Walker Assistance 2: Supervision Quality of Gait 2: improved speed, improved confidence Distance: 120'x1 Stairs/Curb Stairs?: No Balance Posture: Good Sitting - Static: Good Sitting - Dynamic: Good Standing - Static: Good Standing - Dynamic: Fair Other exercises Other exercises 1: standing ex: up on toes, partial squats, KTC with min A, 10 reps each; issued written HEP for standing ex and instructed pt and her dtr, both indicated good understanding Plan Plan Times per week: 5-6 visits weekly Times per day: Daily Current Treatment Recommendations: Strengthening, ROM, Balance Training, Functional Mobility Training, Transfer Training, Endurance Training, Gait Training, Stair training Safety Devices Type of devices: Call light within reach, Gait belt, Patient at risk for falls, Left in chair Restraints Initially in place: No AM-PAC Score [facility] Inpatient Mobility Raw Score : 18 (11/23/20 1428) AM-PAC Inpatient T-Scale Score : 43.63 (11/23/20 1428) Mobility Inpatient CMS 0-100% Score: 46.58 (11/23/208) Mobility Inpatient CMS G-Code Modifier : CK (11/23/20 1428) Goals Short term goals Time Frame for Short term goals: 8 visits Short term goal 1: independent bed mobility Short term goal 2: independent transfers Short term goal 3: independent gait with appropriate device vs none x 100' Short term goal 4: stair ambulation x 7 steps with 1 HR and SBA+1 Patient Goals Patient goals : return home with family Therapy Time Individual Concurrent Group Co-treatment Time In 1322 Time Out 1423 Minutes 61 Ronald Mejia, PT * Lyndsay Easton MD - 11/23/2020 2:20 PM EDT Images from the original note were not included. [facility] Office: [phone] Norris Kwan DO, Evangelista Mills DO, Ulices Joseph DO, Sonny Thomas DO, Daisy Plunkett MD, Lyndsay Easton MD, Nighat Frausto MD, Mora Barkley MD, Micaela Hu MD, Baudilio Mc MD, Jaswant Rees MD, Justin Jefferson DO, Myranda Ruff MD, Koby Huerta DO, Ford Null MD, Nicole Dickson DO, Maurilio Solano MD, Montez Gentile MD, Amber Schmidt MD, Michael Monterroso MD, Vladimir Nicholson MD, mAbrocio Campos MD, Alec Fiore MD, Kathleen Arreguin ACTIVITY THERAPIST, Emma Araujo ACTIVITY THERAPIST, Lisa Grier, ACTIVITY THERAPIST, Rosie Salcedo, HEALTHCARE MARKET CONSULTANT, Israel Medina, ACTIVITY THERAPIST, Yoly Haywood ACTIVITY THERAPIST, Cristina Alcantar, ACTIVITY THERAPIST, Alexandra Garcia, ACTIVITY THERAPIST, Semaj Mathis ACTIVITY THERAPIST, Ben Barry PA-C, Danyell Godoy, SOREN, Danii Cedeno, ACTIVITY THERAPIST, Pelon, ACTIVITY THERAPIST, Radha Gardner, ACTIVITY THERAPIST, Tessa Danielson, ACTIVITY THERAPIST, Alexandrea Hoover, ACTIVITY THERAPIST, Jia Franco, ACTIVITY THERAPIST, Morelia Gonzalez, Alison NAVA CNP [facility] IN-PATIENT SERVICE [facility] Progress Note 11/23/2020 2:20 PM Name: Sabina Canela Acct: [id number] Room: 301/3010-01 Day: 1 Admit Date: 11/22/2020 1:12 AM PCP: Obed Dunn MD Code Status: Full Code Subjective: C/C: LUQ abdominal pain Interval History Status: not changed. Patient is still c/o left upper quadrant abdominal pain. No N/v. She is not SOB sitting in the chair. Her brother and daughter are present. Brief History: Sabina Canela is a 69 y.o. Non- / non female who presents with and is admitted to the hospital for the management of PE (pulmonary thromboembolism) (HCC). Patient is a 69 yr old female with PMH DM2, HTN, and Bipolar disorder who presented to [facility] ED with a one day history of left upper quadrant pain. She does report mild SOB. Her daughter is at bedside and states that her mom is very sedentary. The pt denies any recent long trips, traumas or surgery. The patient's brother is also present who reports a family history of blood clots in himself and a sister. The patient denies any leg swelling, cough, fever, chills or weight loss. She did just have a mammogram 11/14/2020 that was negative. The patient reports mild difficulty swallowing but passed a swallow study with small bites. Her family reports that she has slowed down quite a bit in the last several months. On CTA chest, patient was found to have bilat PE Rt > Lt. She has been placed on a Heparin gtt. Of note, she was also found to have bilateral axillary lymphadenopathy, mediastinal and left iliac lymphadenopathy. Review of Systems: Constitutional: negative for chills, fevers, sweats Respiratory: negative for cough, dyspnea on exertion, shortness of breath, wheezing Cardiovascular: negative for chest pain, chest pressure/discomfort, lower extremity edema, palpitations Gastrointestinal: Positive for abdominal pain, no constipation, diarrhea, nausea, vomiting Neurological: negative for dizziness, headache Medications: Allergies: No Known Allergies Current Meds: Scheduled Meds: sodium chloride flush 5-40 mL Intravenous 2 times per day insulin lispro 0-6 Units Subcutaneous TID WC insulin lispro 0-3 Units Subcutaneous Nightly azithromycin 500 mg Intravenous Q24H cefTRIAXone (ROCEPHIN) IV 1,000 mg Intravenous Q24H aspirin 162 mg Oral Daily gabapentin 300 mg Oral TID levothyroxine 88 mcg Oral Daily with breakfast OLANZapine 20 mg Oral Nightly primidone 50 mg Oral BID propranolol 120 mg Oral Daily QUEtiapine 100 mg Oral BID atorvastatin 20 mg Oral Daily Continuous Infusions: sodium chloride dextrose heparin (PORCINE) Infusion 14 Units/kg/hr (11/23/20 0041) PRN Meds: sodium chloride, acetaminophen OR acetaminophen, magnesium sulfate, ondansetron OR ondansetron, polyethylene glycol, potassium chloride OR potassium alternative oral replacementOR potassium chloride, sodium chloride flush, dextrose, dextrose, glucagon (rDNA), glucose, albuterol, guaiFENesin, heparin (porcine), heparin (porcine) Data: Past Medical History: has a past medical history of Benign essential tremor, Bipolar disorder (HCC), Diabetes mellitus (HCC), Hyperlipidemia, Hypertension, Hypothyroidism, and Neuropathy. Social History: reports that she has never smoked. She has never used smokeless tobacco. She reports that she does not drink alcohol and does not use drugs. Family History: Family History Problem Relation Age of Onset Stroke Mother Diabetes Father Diabetes Sister Clotting Disorder Brother Vitals: BP (!) 149/79 Pulse 53 Temp 97.5 F (36.4 C) (Oral) Resp 14 Ht 5' (1.524 m) Wt 212 lb 8.4 oz (96.4 kg) SpO2 98% BMI 41.51 kg/m Temp (24hrs), Av.8 F (36.6 C), Min:97.5 F (36.4 C), Max:98.1 F (36.7 C) Recent Labs 11/22/20 1907 11/22/20212011/23/20 0903 11/23/20 1207 POCGLU 126* 144* 111* 153* I/O (24Hr): Intake/Output Summary (Last 24 hours) at 11/23/2020 1420 Last data filed at 11/23/2020 0626 Gross per 24 hour Intake 916 ml Output Net 916 ml Labs: Hematology: Recent Labs 11/21/20 1405 11/21/20 1721 11/22/20 0144 11/23/20 0637 WBC 7.9 -- 6.0 5.5 RBC 4.22 -- 4.00 3.94* HGB 12.1 -- 11.5* 11.2* HCT 36.4 -- 36.9 36.6 MCV 86.4 -- 92.3 92.9 MCH 28.7 -- 28.8 28.4 MCHC 33.3 -- 31.2 30.6 RDW 14.6 -- 13.5 13.7 PLT 165 -- 207 See Reflexed IPF Result MPV NOT REPORTED -- 10.6 NOT REPORTED INR -- 1.1 -- 1.0 Chemistry: Recent Labs 11/21/20 1405 11/21/20 1952 11/23/20 0637 NA 133* -- 135 K 3.8 -- 3.9 CL 98 -- 102 CO2 25 -- 20 GLUCOSE 102* -- 142* BUN 10 -- 10 CREATININE 0.99* -- 0.92* ANIONGAP 10 -- 13 LABGLOM 56* -- >60 GFRAA >60 -- >60 CALCIUM 9.5 -- 8.2* TROPHS -- 22* -- Recent Labs 11/21/20 1405 11/22/20 0144 11/22/20 1141 11/22/20 1808 11/22/20 1907 11/22/20 2121 11/23/20 0637 11/23/20 0903 11/23/20 1207 PROT 7.1 -- -- -- -- -- -- -- -- LABALBU 3.6 -- -- -- -- -- -- -- -- LABA1C -- < > -- -- -- -- 6.8* -- -- TSH -- -- -- -- -- -- 7.60* -- -- AST 18 -- -- -- -- -- -- -- -- ALT 11 -- -- -- -- -- -- -- -- ALKPHOS 96 -- -- -- -- -- -- -- -- BILITOT 0.61 -- -- -- -- -- -- -- -- BILIDIR 0.22 -- -- -- -- -- -- -- -- AMYLASE 22* -- -- -- -- -- -- -- -- LIPASE 36 -- -- -- -- -- -- -- -- POCGLU -- < > 96 122* 126* 144* -- 111* 153* < > = values in this interval not displayed. ABG:No results found for: POCPH, PHART, PH, POCPCO2, JSO5GZJ, PCO2, POCPO2, PO2ART, PO2, POCHCO3, QUB4GDW, HCO3, NBEA, PBEA, BEART, BE, THGBART, THB, KLD4HMN, IZGF5GSC, S3HARVMS, O2SAT, FIO2 Lab Results Component Value Date/Time SPECIAL RIGHT HAND 11/21/2020 04:52 PM Lab Results Component Value Date/Time CULTURE NO GROWTH 2 DAYS 11/21/2020 04:52 PM Radiology: CT ABDOMEN PELVIS W IV CONTRAST Additional Contrast? None Result Date: 11/21/2020 Left lower lobe pneumonia and adjacent small effusion. Questionably in the right lung base there could be partially shown PEs although more likely this could be artifactual. Correlate with clinical/laboratory findings consider and CTA PE study to further evaluate. No specific finding in the left upper quadrant of the abdomen. Question of slight stranding around gallbladder, as well as nondilated appendix although these could be artifactual secondary to slight motion. Correlate with symptoms. (Above discussed with Dr. Ty on 11/21/2020 at 4:09 PM) Incidental findings below: Mild left iliac adenopathy and additional prominent lymph nodes described above. Consider short-term follow-up. Other i ncidental findings including indeterminate right adrenal nodule US GALLBLADDER RUQ Result Date: 11/23/2020 Negative right upper quadrant ultrasound. CTA CHEST W CONTRAST Result Date: 11/21/2020 1. Examination positive for pulmonary emboli. Pulmonary emboli predominantly right-sided involving the right main pulmonary artery, right upper lobe, right middle lobe, and right lower lobe pulmonaryarterial branches. There are also small filling defects noted within several left upper and lower lobe pulmonary arterial branches. There is mild straightening of the interventricular septum, raisingpossibility of RV strain. 2. Trace left pleural effusion with mild left basilar airspace opacity. 3. Several prominent, but subcentimeter short axis dimension, mediastinal hilar lymph nodes. There are also several enlarged bilateral axillary lymph nodes (bilateral axillary lymphadenopathy). Axillary lymphadenopathy requires further evaluation/workup. I discussed critical findings with Dr. Ty in the emergency department at 5:47 PM on 11/21/2020. Venous duplex LE bilat Summary No evidence of superficial or deep venous thrombosis in both lower extremities Physical Examination: General appearance: alert, cooperative and no distress Mental Status: oriented to person, place and time and flat affect Lungs: clear to auscultation bilaterally, normal effort Heart: regular rate and rhythm, no murmur Abdomen: soft, TTP left upper quadrant, obese, normal bowel sounds, no masses, hepatomegaly, splenomegaly Extremities: Trace edema bilat LE, no redness, tenderness in the calves Skin: no gross lesions, rashes, induration Assessment: Hospital Problems Last Modified POA * (Principal) PE (pulmonary thromboembolism) ([facility]) 11/23/2020 Yes Diabetes mellitus type 2, noninsulin dependent ([facility]) 11/22/2020 Yes Essential hypertension 11/22/2020 Yes Class 3 severe obesity in adult ([facility]) 11/22/2020 Yes Hypothyroid 11/22/2020 Yes Bipolar disorder ([facility]) 11/22/2020 Yes Plan: 1. Bilat PE, Rt > Lt- started on Heparin gtt. No recent travel, surgeries or trauma. Pt is very sedentary. No known recent Covid infection. Will check Echo since evidence of RV strain, negative venous duplex bilat LE for clots, appreciate Pulmonary consult. Pt's siblings have clotting disorders,follow up on hypercoag studies, will consult Hem/Onc for assistance 2. Bilat axillary lymphadenopathy, mediastinal and left iliac lymphadenopathy- concern for possiblemalignancy, will have IR perform FNA of an axillary lymph node. Hem/Onc consulted 3. DM2- BS stable, HbA1C- 6.8, SSI 4. HTN- BP stable 5. Bipolar d/o- on home meds stable 6. Hypothyroid- increased TSH, will increase Levothyroxine 100 mcg daily 7. Gi proph 8. PT/OT dw pt, daughter, and pt's brother. Questions answered Lyndsay Easton MD 11/23/2020 2:20 PM * Delroy Horton MD - 11/23/2020 9:38 AM EDT PULMONARY & CRITICAL CARE MEDICINE PROGRESS NOTE Patient: Sabina Canela Admit date: 11/22/2020 Primary Care Physician: Obed Dunn MD Consulting Physician: Lyndsay Easton MD CODE Status: Full Code LOS: 1 SUBJECTIVE I personally interviewed/examined the patient, reviewed interval history and interpreted all available radiographic, laboratory data at the time of service. Chief Compliant/Reason for Initial Consult: Pulmonary embolism Brief Hospital Course: The patient is a 69 y.o. female history of diabetes hypertension hypothyroidism. According to patient for 2 to 3 days she was having left flank/upper quadrant pain she was evaluated in [facility] apparently a CT scan of the abdomen was done first which showed left lower lobe small effusion possible pneumonia and suspicion of pulmonary embolism in right lung base. CTA chest shows bilateral pulmonary embolism moderate burden with possible right ventricular strain. Patient has nonspecific mild mediastinal apathy but significant bilateral axillary lymphadenopathy on CT scan. CT scan of theabdomen shows iliac adenopathy. She did not have chest pain pleuritic pain dizziness syncope lightheadedness hemoptysis cough or shortness of breath. She does have history of chronic shortness of breath on exertion. She is very sedentary and obese. She does not complain of pedal edema but she does have bilateral pedal edema. There was no recent surgery, immobilization except sedentary lifestyle, air travel no previous history of malignancy no previous history of thromboembolism family history positive for thromboembolismin mother and sister. Apparently she had mammogram done recently which was reported negative. She did not have any surgeries except tubal ligation per patient. She is not a smoker. According to patient she had a colonoscopy 10 years ago. Interval History: 11/23/20 Overnight events noted, imaging studies seen other labs seen. No acute hypoxic events were reported. Patient was on nasal cannula last night saturating 98% currently she is on room air and saturating 96% and above. She is afebrile and hemodynamically stable. She did not complain of dizziness lightheadedness syncope she does not have chest pain left mid upper quadrant abdominal pain is intermittent. Denies hemoptysis. Denies shortness of breath at rest. Denies pedal edema. She is currently on heparin drip Review of Systems: Review of Systems Constitutional: Negative for activity change, fatigue, fever and unexpected weight change. HENT: Negative for nosebleeds, postnasal drip, sinus pain, sore throat, trouble swallowing and voice change. Eyes: Negative for photophobia, redness and visual disturbance. Respiratory: Positive for shortness of breath. Negative for cough and wheezing. Cardiovascular: Negative for chest pain, palpitations and leg swelling. Gastrointestinal: Negative for blood in stool, constipation, diarrhea and vomiting. Endocrine: Negative for polydipsia, polyphagia and polyuria. Genitourinary: Positive for flank pain. Negative for dysuria, frequency and hematuria. Musculoskeletal: Negative for arthralgias and back pain. Allergic/Immunologic: Negative. Neurological: Negative for dizziness, syncope, speech difficulty, light- headedness and headaches. Hematological: Negative for adenopathy. Does not bruise/bleed easily. Psychiatric/Behavioral: Negative. OBJECTIVE VITAL SIGNS: LAST- BP 138/72 Pulse 56 Temp 97.7 F (36.5 C) (Oral) Resp 17 Ht 5' (1.524 m) Wt 212 lb 8.4 oz (96.4 kg) SpO2 98% BMI 41.51 kg/m 8-24 HR RANGE- TEMP Temp Av.9 F (36.6 C) Min: 97.5 F (36.4 C) Max: 98.1 F (36.7 C) BP Systolic (24hrs), Av , Min:101 , Max:145 Diastolic (24hrs), Av, Min:65, Max:76 PULSE Pulse Av.4 Min: 56 Max: 72 RR Resp Av.5 Min: 14 Max: 17 O2 SAT No data recorded OXYGEN DELIVERY No data recorded Systemic Examination: Physical Exam General appearance - looks comfortable and in no acute distress Mental status - alert, oriented to person, place, and time Eyes - pupils equal and reactive, extraocular eye movements intact Mouth - mucous membranes moist, pharynx normal without lesions Neck - supple, no significant adenopathy. Positive bilateral axillary adenopathy is palpable nontender Chest - Chest was symmetrical without dullness to percussion. Breath sounds bilaterally were clear to auscultation. Slightly decreased breath sound at bases. There were no wheezes, rhonchi or rales. There is no intercostal recession or use of accessory muscles Heart - normal rate, regular rhythm, normal S1, S2, no murmurs, rubs, clicks or gallops Abdomen - soft, nontender, nondistended, no masses or organomegaly Neurological - alert, oriented, normal speech, no focal findings or movement disorder noted Extremities - peripheral pulses normal, positive bilateral pedal edema, no clubbing or cyanosis Skin - normal coloration and turgor, no rashes, no suspicious skin lesions noted DATA REVIEW Medications: Scheduled Meds: sodium chloride flush 5-40 mL Intravenous 2 times per day insulin lispro 0-6 Units Subcutaneous TID WC insulin lispro 0-3 Units Subcutaneous Nightly azithromycin 500 mg Intravenous Q24H cefTRIAXone (ROCEPHIN) IV 1,000 mg Intravenous Q24H aspirin 162 mg Oral Daily gabapentin 300 mg Oral TID levothyroxine 88 mcg Oral Daily with breakfast OLANZapine 20 mg Oral Nightly primidone 50 mg Oral BID propranolol 120 mg Oral Daily QUEtiapine 100 mg Oral BID atorvastatin 20 mg Oral Daily Continuous Infusions: sodium chloride dextrose heparin (PORCINE) Infusion 14 Units/kg/hr (11/23/20 0041) LABS:- ABG: No results for input(s): POCPH, POCPCO2, POCPO2, POCHCO3, JQJB0MST in the last 72 hours. CBC: Recent Labs 11/21/20 1405 11/22/20 0144 WBC 7.9 6.0 HGB 12.1 11.5* HCT 36.4 36.9 MCV 86.4 92.3 PLT 165 207 LYMPHOPCT 18 -- RBC 4.22 4.00 MCH 28.7 28.8 MCHC 33.3 31.2 RDW 14.6 13.5 BMP: Recent Labs 11/21/20 1405 11/23/20 0637 NA 133* 135 K 3.8 3.9 CL 98 102 CO2 25 20 BUN 10 10 CREATININE 0.99* 0.92* GLUCOSE 102* 142* Liver Function Test: Recent Labs 11/21/20 1405 PROT 7.1 LABALBU 3.6 ALT 11 AST 18 ALKPHOS 96 BILITOT 0.61 Amylase/Lipase: Recent Labs 11/21/20 1405 AMYLASE 22* LIPASE 36 Coagulation Profile: Recent Labs 11/21/20 1721 11/22/20 0144 11/22/20 0722 11/22/20 1337 11/23/20 0637 INR 1.1 -- -- -- 1.0 PROTIME 13.6 -- -- -- 10.7 APTT 33.0 < > 75.9* 66.1* 73.2* < > = values in this interval not displayed. Cardiac Enzymes: No results for input(s): CKTOTAL, CKMB, CKMBINDEX, TROPONINI in the last 72 hours. Lactic Acid: No results found for: LACTA BNP: No results found for: BNP D-Dimer: No results found for: DDIMER Others: Lab Results Component Value Date TSH 7.60 (H) 11/23/2020 No results found for: NIKI, RHEUMFACTOR, SEDRATE, CRP No results found for: LABURIC, URICACID No results found for: IRON, TIBC, FERRITIN No results found for: SPEP, UPEP No results found for: PSA, CEA, CA125, JL5791, CA199 Input/Output: Intake/Output Summary (Last 24 hours) at 11/23/2020 0938 Last data filed at 11/23/2020 0626 Gross per 24 hour Intake 916 ml Output Net 916 ml Microbiology: Recent Labs 11/21/20 1652 SPECDESC .BLOOD SPECIAL RIGHT HAND CULTURE NO GROWTH 2 DAYS Pathology: Radiology reports: US GALLBLADDER RUQ Final Result Negative right upper quadrant ultrasound. VL DUP LOWER EXTREMITY VENOUS BILATERAL Final Result Echocardiogram: No results found for this or any previous visit. Cardiac Catheterization: No results found for this or any previous visit. ASSESSMENT AND PLAN Assessment: //Acute bilateral pulmonary embolism with signs of right ventricular strain on CTA chest. //Axillary and mediastinal/hilar/iliac adenopathy. //Unlikely pneumonia //Minimal small pleural effusion secondary to pulmonary embolism //Diabetes mellitus //Hypertension //Probable obstructive sleep apnea //Obesity. Plan: Continue with heparin drip at this time but she is okay to switch to Lovenox if no intervention is needed. Patient has significant axillary adenopathy on exam. She has some iliac adenopathy. She has mild nonspecific. Patient pulmonary embolism is unprovoked until other hypercoagulable state like malignancy to be considered with lymphadenopathy. I would recommend hematology evaluation and possible axillary lymph node biopsy. Patient venous Dopplers are negative although she has bilateral pedal edema and recommend echocardiogram. Also need to consider CTEPH (chronic thromboembolic pulmonary hypertension) if echocardiogram showspulmonary hypertension and right ventricular dysfunction she will need follow-up echocardiogram as an outpatient and few months. Patient remains hemodynamically stable and is currently saturating well on room air Continue supplemental oxygen to keep oxygen saturation greater than 92% She will also likely need outpatient sleep study Antimicrobials reviewed; no need for antibiotic from pulmonary standpoint Physical/occupational/speech therapy; increase activity as tolerated I updated the patient regarding the current clinical condition, provisional diagnosis and management plan. I addressed concerns and answered all questions to the best of my abilities. It was my pleasure to evaluate Sabina Canela today. We will continue to follow. I would like to thank you for allowing me to participate in the care of this patient. Please feel free to call with any further questions or concerns. Delroy Horton MD, M.D. Pulmonary and Critical Care Medicine 11/23/2020, 9:39 AM Please note that this chart was generated using voice recognition [employer] dictation software. Although every effort was made to ensure the accuracy of this automated contact lens manufacturer, some errors in contact lens manufacturer may have occurred. * Benedicto Santizo, PT - 11/22/2020 11:32 AM EDT Images from the original note were not included. Physical Therapy Physical Therapy Cancel Note DATE: 11/22/2020 NAME: Sabina Canela : 1950 Patient not seen this date for Physical Therapy due to: Other: PE, heparin started ~0330 11/22. await 24 hr per protocol. will ck 11/23. * Rosa Simons OT - 11/22/2020 11:08 AM EDT Images from the original note were not included. [facility] Occupational Therapy Not Seen Note DATE: 11/22/2020 NAME: Sabina Canela : 1950 Patient not seen this date for Occupational Therapy due to: Other: Pt positive for PE. Heparin drip started at 0335 on 11/22/20. Will wait 24 hours since start of Heparin drip. Next Scheduled Treatment: 11/23/20 * Dorothy Jansen RCP - 11/22/2020 4:56 AM EDT CARLOS Doranatient Assessment complete. PE (pulmonary thromboembolism) (HCC) [I26.99] . Vitals: 11/22/20 0405 BP: 133/84 Pulse: 82 Resp: 15 Temp: 97.4 F (36.3 C) SpO2: 98% RR 17 Breath Sounds: clear Bronchodilator assessment at level 1 [x] Bronchodilator Assessment BRONCHODILATOR ASSESSMENT SCORE Score 0 1 2 3 4 5 Breath Sounds [] Patient Baseline [x] No Wheeze good aeration [] Faint, scattered wheezing, good aeration [] Expiratory Wheezing and or moderately diminished [] Insp/Exp wheeze and/or very diminished [] Insp/Exp and/ or marked distress Respiratory Rate [] Patient Baseline [x] Less than 20 [] Less than 20 [] 20-25 [] Greater than 25 [] Greater than 25 Peak flow % of Pred or PB [x] NA [] Greater than 90% [] 81-90% [] 71-80% [] Less than or equal to 70% or unable to perform [] Unable due to Respiratory Distress Dyspnea re [] Patient Baseline [x] No SOB [] No SOB [] SOB on exertion [] SOB min activity [] At rest/acute e FEV% Predicted [x] NA [] Above 69% [] Unable [] Above 60-69% [] Unable [] Above 50-59% [] Unable [] Above 35-49% [] Unable [] Less than 35% [] Unable documented in this [facility] Work Phone: 1(237) 357-356408-21-2021 Hospital Discharge instructions* Discharge Instr - Activity* Justin Jefferson DO - 11/24/2020 3:32 PM EDT - As tolerated. * Discharge Instr - Diet* Justin Jefferson DO - 11/24/2020 3:32 PM EDT Good nutrition is important when healing from an illness, injury, or surgery. Follow any nutrition recommendations given to you during your hospital stay. If you were given an oral nutrition supplement while in the hospital, continue to take this supplement at home. You can take it with meals, in-between meals, and/or before bedtime. These supplements can be purchased at most local grocery stores, pharmacies, and [employer]-stores. If you have any questions about your diet or nutrition, call the hospital and ask for the dietitian. - Carb controlled, low sodium diet * Discharge Instr - MIYA* Loreta Paiz RN - 11/24/2020 3:50 PM EDT Continuity of Care Form Patient Name: Sabina Canela : 1950 Admit date: 11/22/2020 Discharge date: 11/24/2020 Code Status Order: Full Code Advance Directives: Admitting Physician: Justin Jefferson DO PCP: Obed Dunn MD Discharging Nurse: Loreta WOOD Discharging Hospital Unit/Room#: 3010/3010-01 Discharging Unit Emergency Contact: Extended Emergency Contact Information Primary Emergency Contact: Blake Canela [address]: [address] [place] [address] Mobile Relation: Child Preferred language: Senegalese Weed Control Inspector needed? No Secondary Emergency Contact: Juan Canela Relation: Child Weed Control Inspector needed? No Past Surgical History: Past Surgical History: Procedure Laterality Date TUBAL LIGATION Immunization History: Immunization History Administered Date(s) Administered Pneumococcal Polysaccharide ([id number]) 07/26/2020 Active Problems: Patient Active Problem List Diagnosis Code Acute ischemic stroke ([facility]) I63.9 PE (pulmonary thromboembolism) ([facility]) I26.99 Diabetes mellitus type 2, noninsulin dependent ([facility]) E11.9 Essential hypertension I10 Class 3 severe obesity in adult ([facility]) E66.01 Hypothyroid E03.9 Bipolar disorder ([facility]) F31.9 Isolation/Infection: Isolation No Isolation Patient Infection Status Infection Onset Added Last Indicated Last Indicated By Review Planned Expiration Resolved Resolved By None active Resolved COVID-19 Rule Out 11/21/20 11/21/20 11/21/20 COVID-19, Rapid (Ordered) 11/22/20 Sandra Hastings RN COVID-19 Rule Out 11/21/20 11/21/20 11/21/20 COVID-19, Rapid (Ordered) 11/21/20 Rule-Out Test Resulted Nurse Assessment: Last Vital Signs: BP (!) 148/85 Pulse 62 Temp 98.2 F (36.8 C) (Oral) Resp 18 Ht 5' (1.524 m) Wt 212 lb 8.4 oz (96.4 kg) SpO2 95% BMI 41.51 kg/m Last documented pain score (0-10 scale): Pain Level: 0 Last Weight: Wt Readings from Last 1 Encounters: 11/22/20 212 lb 8.4 oz (96.4 kg) Mental Status: oriented, alert, coherent, logical, thought processes intact and able to concentrateand follow conversation IV Access: - None Nursing Mobility/ADLs: Walking Independent Transfer Assisted Bathing Assisted Dressing Independent Toileting Assisted Feeding Independent Body Stylist Independent Med Delivery whole Wound Care Documentation and Therapy: Elimination: Continence: Bowel: Yes Bladder: Yes Urinary Catheter: None Colostomy/Ileostomy/Ileal Conduit: No Date of Last BM: 11/24/2020 No intake or output data in the 24 hours ending 11/24/20 1546 No intake/output data recorded. Safety Concerns: At Risk for Falls Impairments/Disabilities: None Nutrition Therapy: Current Nutrition Therapy: - Oral Diet: Carb Control 4 carbs/meal (1800kcals/day) - 60 gm/meal Routes of Feeding: Oral Liquids: No Restrictions Daily Fluid Restriction: no Last Modified Barium Swallow with Video (Video Swallowing Test): not done Treatments at the Time of Hospital Discharge: Respiratory Treatments: 11/24/2020 Oxygen Therapy: is not on home oxygen therapy. Ventilator: - No ventilator support Rehab Therapies: Physical Therapy and Occupational Therapy Weight Bearing Status/Restrictions: No weight bearing restirctions Other Medical Equipment (for information only, NOT a DME order): cane Other Treatments: none Patient's personal belongings (please select all that are sent with patient): {CHP DME Belongings:705407529} RN SIGNATURE: CASE MANAGEMENT/SOCIAL WORK SECTION Inpatient Status Date: Readmission Risk Assessment Score: Readmission Risk Risk of Unplanned Readmission: 19 Discharging to Facility/ Agency Name: Address: Phone: Fax: Dialysis Facility (if applicable) Name: Address: Dialysis Schedule: Phone: Fax: Police Captain/Stitching Machine Setter signature: {Esignature:[id number]} PHYSICIAN SECTION Prognosis: {Prognosis:8919368292} Condition at Discharge: { Patient Condition:073853861} Rehab Potential (if transferring to Rehab): {Prognosis:9222612045} Recommended Labs or Other Treatments After Discharge: Physician Certification: I certify the above information and transfer of Sabina Canela is necessary for the continuing treatment of the diagnosis listed and that she requires {Admit to Appropriate Level of Care:93895} for {GREATER/LESS:788810673} 30 days. Update Admission H&P: {CHP DME Changes in HandP:004959614} PHYSICIAN SIGNATURE: {Esignature:460924787} * Additional Instructions* Justin Jefferson DO - 11/24/2020 To options to have this biopsy scheduled: Option 1: Follow-up with your PCP on Thursday and have it scheduled or have you referred to an oncologist either in [place] or in [place] for biopsy. Option 2: Follow-up with oncology service in [place] as noted above. The reason for the biopsy: Several prominent, but subcentimeter short axis dimension, mediastinal hilar lymph nodes. There are also several enlarged bilateral axillary lymph nodes (bilateral axillarylymphadenopathy). Axillary lymphadenopathy requires further evaluation/workup. documented in this [employer] Work Phone: [phone] 835-641908-19-2021 Note [facility] Vascular Lower Extremities DVT Study Procedure Patient Name CANELA Date of Study 11/22/2020 SABINA Davidson Date of 1950 Gender Female Age 69 year(s) Race Room Number 3010 Height: 60 inch, 152.4 cm Corporate ID [id number] Weight: 212 pounds, 96.2 kg # Patient Acct [id number] BSA: 1.91 m^2 BMI: 41.4 kg/m^2 # MR # [id number] Executive Compensation Analyst Wen Crenshaw RVT Interpreting Physician Parth Noble Referring Referring Physician Lyndsay Easton Nurse Practitioner Procedure Type of Study: Veins: Lower Extremities DVT Study, Venous Scan Lower Bilateral. Indications for Study:Pulmonary Embolism. Patient Status:In Patient. Conclusions Summary No evidence of superficial or deep venous thrombosis in both lower extremities. Signature Findings: Right Impression: Left Impression: The common femoral, femoral, The common femoral, femoral, popliteal and tibial veins popliteal and tibial veins demonstrate normal compressibility demonstrate normal compressibility and augmentation. and augmentation. Normal compressibility of the great Normal compressibility of the great saphenous vein. saphenous vein. Normal compressibility of the small Normal compressibility of the small saphenous vein. saphenous vein. Risk Factors - The patient's risk factor(s) include: diabetes mellitus, dyslipidemia and arterial hypertension. Velocities are measured in cm/s ; Diameters are measured in cm Right Lower Extremities DVT Study Measurements Right 2D Measurements + + + + + !Location !Visualized!Compressibility!Thrombosis! + + + + + !Common Femoral !Yes !Yes !None ! + + + + + !Prox Femoral !Yes !Yes !None ! + + + + + !Mid Femoral !Yes !Yes !None ! + + + + + !Dist Femoral !Yes !Yes !None ! + + + + + !Popliteal !Yes !Yes !None ! + + + + + !Sapheno Femoral Junction !Yes !Yes !None ! + + + + + !PTV !Yes !Yes !None ! + + + + + !Peroneal !Yes !Yes !None ! + + + + + !Gastroc !Yes !Yes !None ! + + + + + !GSV Thigh !Yes !Yes !None ! + + + + + !GSV Knee !Yes !Yes !None ! + + + + + !GSV Ankle !Yes !Yes !None ! + + + + + !SSV !Yes !Yes !None ! + + + + + Right Doppler Measurements + +------+------+ + !Location !Signal!Reflux!Reflux (msec) ! + +------+------+ + !Common Femoral !Phasic! ! (more content not included)...[employer] Work Phone: evaluation + Plan note No data available for this section [facility] Future App[facility]ments Appointment Date:03/24/2023 08:00:00 AM Scheduled [facility]: Medicare Wellness Initial Appointment Date:03/24/2023 08:40:00 AM Scheduled Provider:Marvin Husain PA-C [facility] Future Appointments Appointment Date:06/22/2023 08:40:00 AM Scheduled Provider:Marvin Husain PA-C Location:[facility] Appointment Type: Open Appointment Date:03/24/2024 08:00:00 AM Scheduled Provider: [facility] Type:FM Medicare Wellness Subsequent Future Scheduled Tests Radiology* BD Bone Density DEXA 03/24/23 [facility] [place] Evaluation + Plan note Future Appointments Appointment Date:06/22/2023 08:40:00 AM Scheduled Provider:Marvin Husain PA-C [facility] Type:FM Open Appointment Date:03/24/2024 08:00:00 AM Scheduled Provider: [facility] Type: Medicare Wellness [facility] Future Appointments Appointment Date:09/22/2023 08:00:00 AM Scheduled Provider:Mravin Husain PA-C [facility] Type:FM Open Appointment Date:03/24/2024 08:00:00 AM Scheduled [facility] App[facility] Type:FM Medicare Wellness Subsequent Future Scheduled Tests Laboratory* HgbA1c 06/22/23 * Microalbumin Level Urine 06/22/23 * UA With Cult Reflex 06/22/23 * Vitamin D 25 Hydroxy 06/22/23 * CBC w/ Auto Diff 06/22/23 * Comprehensive Metabolic Panel 06/22/23 * Lipid Panel 06/22/23 * Thyroid Stimulating Hormone 06/22/23 * Free T4 06/22/23 * Vitamin B12 Level 06/22/23 [facility] [place] Evaluation + Plan note Future Appointments Appointment Date:03/24/2024 08:00:00 AM Scheduled Provider: Location:[facility] Appointment Type: Medicare Wellness Subsequent Diagnostic Tests Pending * [facility] Appointment Date:08/24/2023 08:40:00 AM Scheduled Provider:Marvin Husain PA-C [facility] App[facility] Type:FM Open Appointment Date:03/24/2024 08:00:00 AM Scheduled Provider: [facility] App[facility] Type:FM Medicare Wellness Subsequent [facility] [place] Evaluation + Plan note Future Appointments Appointment Date:09/11/2023 11:00:00 AM Scheduled Provider:Marvin Husain PA-C [facility] App[facility] Type:FM Open Appointment Date:03/24/2024 08:00:00 AM Scheduled Provider: [facility] App[facility] Type:FM Medicare Wellness Subsequent [facility] Evaluation + Plan note Future Appointments Appointment Date:12/15/2023 11:00:00 AM Scheduled Provider:Marvin Husain PA-C [facility] App[facility] Type:FM Open Appointment Date:03/24/2024 08:00:00 AM Scheduled Provider: Location:[facility] Appointment Type:FM Medicare Wellness Subsequent [facility] [place] Evaluation + Plan note Future Appointments Appointment Date:12/01/2023 08:00:00 AM Scheduled Provider:Marvin Husain PA-C [facility] App[facility] Type: Open Appointment Date:03/24/2024 08:00:00 AM Scheduled Provider: Location:[facility] Appointment Type: Medicare Wellness Subsequent [facility] evaluation + Plan note Future Appointments Appointment Date:12/14/2023 08:15:00 PM Scheduled Provider: [facility] Appointment Type:FINE DINING SERVER Sleep Study w/C-PAP () Appointment Date:03/24/2024 08:00:00 AM Scheduled Provider: Location:[facility] Appointment Type: Medicare Wellness Subsequent Appointment Date:04/01/2024 07:00:00 AM Scheduled Provider:Jia Woodward Location:[facility] Appointment Type: Open [facility] Evaluation + Plan note Future Appointments Appointment Date:03/24/2024 08:00:00 AM Scheduled Provider: Location:[facility] Appointment Type: Medicare Wellness Subsequent Appointment Date:04/01/2024 07:00:00 AM Scheduled Provider:Jia Woodward Location:[facility] Appointment Type: Open [facility] evaluation + Plan note Future Appointments Appointment Date:02/02/2024 09:40:00 AM Scheduled Provider:Lupillo MORA, APPLE PACKING HEADER-Loreta NAVA Location:[facility] Appointment Type: Open Appointment Date:03/24/2024 08:00:00 AM Scheduled Provider: Location:[facility] Appointment Type: Medicare Wellness Subsequent Appointment Date:04/01/2024 07:00:00 AM Scheduled Provider:Jia Woodward Location:[facility] Appointment Type:[facility] [place] Evaluation + Plan note Future Appointments Appointment Date:01/12/2024 02:20:00 PM Scheduled Provider:PRISCA Stephen Tammy L. Location:[facility] Appointment Type: Hospital Follow Up w/TCM Appointment Date:02/02/2024 09:40:00 AM Scheduled Provider:PRISCA Stephen Tammy L. Location:[facility] Appointment Type: Open Appointment Date:02/22/2024 09:30:00 AM Scheduled Provider: [facility] Appointment Type:FINE DINING SERVER Sleep Study Clinic Follow Up ([facility]) Appointment Date:03/24/2024 08:00:00 AM Scheduled Provider: Location:[facility] Appointment Type: Medicare Wellness Subsequent Appointment Date:04/01/2024 07:00:00 AM Scheduled Provider:Jia Woodward Location:[facility] Appointment Type:[facility] Evaluation + Plan note Future Appointments Appointment Date:02/02/2024 09:40:00 AM Scheduled Provider:PRISCA Stephen Tammy L. Location:[facility] Appointment Type: Open Appointment Date:02/22/2024 09:30:00 AM Scheduled Provider: [facility] App[facility] Type:FINE DINING SERVER Sleep Study Clinic Follow Up (FT) Appointment Date:03/24/2024 08:00:00 AM Scheduled Provider: Location:[facility] Appointment Type: Medicare Wellness Subsequent Appointment Date:04/01/2024 07:00:00 AM Scheduled Provider:Jia Woodward Location:[facility] Appointment Type:[facility] [place] Evaluation + Plan note Future Appointments Appointment Date:02/22/2024 09:30:00 AM Scheduled Provider: Location[facility] Appointment Type:FINE DINING SERVER Sleep Study Clinic Follow Up (FT) Appointment Date:03/24/2024 08:00:00 AM Scheduled Provider: Location:[facility] Appointment Type: Medicare Wellness Subsequent Appointment Date:04/01/2024 07:00:00 AM Scheduled Provider:Jia Woodward Location:[facility] Appointment Type: Open [facility] Evaluation + Plan note Future Appointments Appointment Date:03/25/2024 10:40:00 AM Scheduled Provider:PRISCA Stephen Tammy L. Location:[facility] Appointment Type: Open Appointment Date:03/29/2024 09:15:00 AM Scheduled Provider: Location[facility] Appointment Type:MA Screen () Appointment Date:03/24/2025 08:00:00 AM Scheduled Provider: Location:[facility] Appointment Type:FM Medicare Wellness Subsequent Future Scheduled Tests Radiology* MA Mamm Screen w/CAD if perf and 3D Wild 03/29/24 [facility] Collectaluation + Plan note Future Appointments Appointment Date:03/29/2024 09:15:00 AM Scheduled Provider: [facility] Type:MA Screen (FT) Appointment Date:07/25/2024 09:00:00 AM Scheduled Provider:PRISCA Stephen Tammy L. Location:[facility] Appointment Type: Open Appointment Date:03/24/2025 08:00:00 AM Scheduled Provider: Location:[facility] Appointment Type:FM Medicare Wellness Subsequent Future Scheduled Tests Radiology* MA Mamm Screen w/CAD if perf and 3D Wild 03/29/24 [facility] evaluation + Plan note Future Appointments Appointment Date:07/25/2024 09:00:00 AM Scheduled Provider:PRISCA Stephen Tammy L. Location:[facility] Appointment Type: Open Appointment Date:03/24/2025 08:00:00 AM Scheduled Provider: Location:[facility] [place] Appointment Type: Medicare Wellness Subsequent [facility] evaluation + Plan note Future Appointments Appointment Date:07/25/2024 09:00:00 AM Scheduled Provider:PRISCA Stephen Tammy L. [facility] App[facility] Type: Open Appointment Date:03/24/2025 08:00:00 AM Scheduled Provider: [facility] App[facility] Type: Medicare Wellness Subsequent Diagnostic Tests Pending * Urine Culture 05/10/24 [facility] evaluation + Plan note Future Appointments Appointment Date:11/22/2024 08:20:00 AM Scheduled Provider:PRISCA Stephen Tammy L. [facility] App[facility] Type: Open Appointment Date:03/24/2025 08:00:00 AM Scheduled Provider: Location:[facility] Appointment Type: Medicare Wellness Subsequent [facility] Evaluation + Plan note Future Appointments Appointment Date:03/24/2025 08:00:00 AM Scheduled Provider: [facility] App[facility] Type: Medicare Wellness Subsequent Appointment Date:03/24/2025 09:20:00 AM Scheduled Provider:PRISCA Stephen Tammy L. Location:[facility] Appointment Type: Open [facility] [place] Evaluation note* Diagnosis Type 2 diabetes mellitus without complication, with long-term current use of insulin (HCC) documented in this encounter [employer] Phone: evaluation note* Diagnosis Ovarian failure Other ovarian failure documented in this encounter [employer] Phone: evaluation note* Diagnosis Acquired hypothyroidism Unspecified hypothyroidism documented in this encounter [employer] Phone: evaluation note* Diagnosis Cerebrovascular accident (CVA), unspecified mechanism (HCC)- Primary documented in this encounter [employer] Phone: evaluation note* Diagnosis Other dysphagia documented in this encounter [employer] Phone: evaluation note* Diagnosis Acute pulmonary embolism, unspecified pulmonary embolism type, unspecified whether acute cor pulmonale present ([facility])- Primary Left upper quadrant abdominal pain Essential hypertension Unspecified essential hypertension Pneumonia of both lower lobes due to infectious organism Urinary tract infection with hematuria, site unspecified documented in this encounter [employer] Phone: [email or web address] note* Diagnosis PE (pulmonary thromboembolism) ([facility])- Primary Chronic pulmonary embolism Diabetes mellitus type 2, noninsulin dependent ([facility]) Type II or unspecified type diabetes mellitus without mention of complication, not stated as uncontrolled Essential hypertension Unspecified essential hypertension Class 3 severe obesity in adult ([facility]) Hypothyroid Unspecified hypothyroidism Bipolar disorder ([facility]) Bipolar disorder, unspecified documented in this encounter [employer] Phone: evaluation note* Diagnosis Leg edema- Primary Edema documented in this encounter [employer] Phone: evaluation note* Diagnosis Leg swelling Swelling of limb documented in this encounter [employer] Phone: evaluation note* Diagnosis Accidental fall, initial encounter- 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 Long-term (current) use of anticoagulants documented in this encounter [employer] Phone: [email or web address] note* Diagnosis Tachycardia Tachycardia, unspecified documented in this encounter [employer] Phone: evalduisin note* Diagnosis PE (pulmonary thromboembolism) ([facility]) Chronic pulmonary embolism documented in this encounter [employer] Phone: evalgryhow note* Diagnosis PE (pulmonary thromboembolism) ([facility]) Chronic pulmonary embolism documented in this encounter [employer] Phone: evallvygwa note* Diagnosis Viral upper respiratory tract infection Acute upper respiratory infections of unspecified site documented in this encounter [employer] Phone: evalasooxm note* Diagnosis Effusion of right knee- Primary Effusion of lower leg joint documented in this encounter [employer] Phone: evalzljoxl note* Diagnosis Fall, initial encounter- Primary Confusion Unspecified psychosis documented in this encounter [employer] Phone: evaluation note* Diagnosis Weight loss Loss of weight Other specified diabetes mellitus with other specified complication, unspecified whether rn long term care insulin use (HCC) Hypothyroidism, unspecified type documented in this encounter [employer] Phone: evaluation note* Diagnosis Acute pain of right knee documented in this encounter [employer] Phone: evaluation note* Diagnosis Infrapatellar bursitis of left knee- Primary documented in this encounter [employer] Phone: evaluation note* Diagnosis Urgency incontinence Urge incontinence Urine frequency Urinary frequency documented in this encounter [employer] Phone: evalaeumad note* Diagnosis Acquired hypothyroidism Unspecified hypothyroidism Urgency incontinence Urge incontinence documented in this encounter [employer] Phone: [email or web address] note* Diagnosis Chest pain- Primary Chest pain, unspecified Precordial pain Hypoglycemia Hypoglycemia, unspecified documented in this encounter [employer] note[employer] [place] [employer] Other Evaluation note* Diagnosis Biceps femoris tendon strain at knee- Primary documented in this encounter [employer] noteNo assessment information available [facility] Work Phone: Evaluation note* Diagnosis Onset Date Resolution Status CKD (chronic kidney disease) stage 3, GFR 30-59 ml/min acute Hyperlipidemia acute [id number] acute Hyperuricemia acute Hypomagnesemia acute Secondary hyperparathyroidism acute Type 2 diabetes mellitus wit h diabetic chronic kidney disease acute Vitamin D deficiency acute [facility] Work Phone: Evaluation note* Diagnosis Onset Date Resolution Status CKD (chronic kidney disease) stage 3, GFR 30-59 ml/min acute Hyperlipidemia acute [id number] acute Hyperuricemia acute Hypomagnesemia acute Secondary hyperparathyroidism acute Type 2 diabetes mellitus wit h diabetic chronic kidney disease acute Vitamin D deficiency acute Major depressive disorder, r ecurrent, severe with psychotic symptoms acute [facility] Work Phone: Evaluation note* Diagnosis Onset Date Resolution Status CKD (chronic kidney disease) stage 3, GFR 30-59 ml/min acute Hyperlipidemia acute [id number] acute Hyperuricemia acute Hypomagnesemia acute Secondary hyperparathyroidism acute Type 2 diabetes mellitus wit h diabetic chronic kidney disease acute Vitamin D deficiency acute Major depressive disorder, r ecurrent, severe with psychotic symptoms acute Arthritis of carpometacarpal (CMC) joint of right thum b acute [facility] Work Phone: Evaluation note* Diagnosis Type II diabetes mellitus with neurological manifestations (HCC)- Primary Type II or unspecified type diabetes mellitus with neurological manifestations, not stated as uncontrolled Onychomycosis Dermatophytosis of nail Pain in right toe(s) Pain in left toe(s) [facility]* Diagnosis Onset Date Resolution Status Admit Date Arthritis of carpometacarpal (CMC) joint of right thumb acute November 01, 2024 9:08am Right hand pain acute October 9:08am [facility] Work Phone: Hisjvxc general Narrative - Reported* Type Description Date Medical History headache, tension Medical History depression Medical History anxiety Medical History hypothyrodism Medical History DM type II Medical History TIA Medical History PE Surgical History tubal ligation 1978 Surgical History cataract surgery 1989 Surgical History Bilateral eye surgery 09/2015 Hospitalization History mental health 2005 Hospitalization History TIA 11/2020 Hospitalization History PE 01/2021 [email or web address] Other [employer] general Narrative - Reported* Type Description Date Medical History headache, tension Medical History depression Medical History anxiety Medical History hypothyrodism Medical History DM type II Medical History TIA Medical History PE Medical History LEFT KNEE PAIN Surgical History tubal ligation 1978 Surgical History cataract surgery 1989 Surgical History Bilateral eye surgery 09/2015 Hospitalization History mental health 2005 Hospitalization History TIA 11/2020 Hospitalization History PE 01/2021 [email or web address] Other history general Narrative - Reported* Type Description Date Medical History headache, tension Medical History depression Medical History anxiety Medical History hypothyrodism Medical History DM type II Medical History TIA Medical History PE Medical History LEFT KNEE PAIN Surgical History tubal ligation 1978 Surgical History cataract surgery 1989 Surgical History Bilateral eye surgery 09/2015 Hospitalization History mental health 2005 Hospitalization History TIA 11/2020 Hospitalization History PE 01/2021 Hospitalization History OBSERVATION FOR CHEST PA IN 08/2022 [email or web address] Other Hospital Discharge instructions* Attachments The following attachments cannot be sent through Care Everywhere. * Ischemic Stroke: General Info ([place]alese) [facility]: [facility] Discharge instructions* Attachments The following attachments cannot be sent through Care Everywhere. * Hypertension: General Info (Senegalese) * Abdominal Pain ([place]e) [facility] Discharge [facility]* Attachments The following attachments cannot be sent through Care Everywhere. * Edema: Leg and Ankle ([place]egalese) [facility]: Hospital Discharge instructions* Attachments The following attachments cannot be sent through Care Everywhere. * Fall Prevention ([place]e) documented [facility] Work Phone: Hospital Discharge instructions* Attachments The following attachments cannot be sent through Care Everywhere. * Knee Pain or Injury (Senegalese) documented in this [facility] [employer] Work Phone: Hospital Discharge instructions* Attachments The following attachments cannot be sent through Care Everywhere. * Fall Prevention ([place]alese) documented in this [facility] [employer] Phone: Hospital Discharge instructions* Attachments The following attachments cannot be sent through Care Everywhere. * Bursitis ([place]e) [facility] Phone: Hospital Discharge instructions No data available for this section [facility] No data available for this section [facility] (narrative)No reason for referral information [facility] Work Phone: Summary Purpose Family History No Family History Records Found Relationship Condition Age at Onset Recorded Date/T jack father Diabetes mellitus Unknown Unknown mother Unknown Advance Directives No Advanced Directives Records Found Advance Directive Response Recorded Date/ Time Advance Directives No December 7:03am Latest Code Status on File Code Status Date Activated Date Inactivated Comments Full Code 11/22/2020 1:17 AM Latest Code Status on File Code Status Date Activated Date Inactivated Comments Full Code 11/22/2020 1:17 AM 11/24/2020 8:01 PM Latest Code Status on File Code Status Date Activated Date Inactivated Comments Full Code 11/22/2020 1:17 AM 11/24/2020 8:01 PM Healthcare Agents on File Name Relationship Healthcare Agent Relationship Communication Blake Canela Child Primary Decision Maker [email or web address] Healthcare Agents on File Name Relationship Healthcare Agent Relationship Communication Blake Canela Child Primary Decision Maker [email or web address]@[email or web address] Healthcare Agents on File Name Relationship Healthcare Agent Relationship Communication Blake Canela Child Primary Decision Maker [email or web address]@[email or web address] Healthcare Agents on File Name Relationship Healthcare Agent Relationship Communication Blake Canela Child Primary Decision Maker [email or web address]@[employer] Healthcare Agents on File Name Relationship Healthcare Agent Relationship Communication Blake Canela Child Primary Decision Maker @[employer] Healthcare Agents on File Name Relationship Healthcare Agent Relationship Communication Blake Canela Child Primary Decision Maker [email or web address]@[email or web address] Healthcare Agents on File Name Relationship Healthcare Agent Relationship Communication Blake Canela Child Primary Decision Maker [email or web address]@[email or web address] Healthcare Agents on File Name Relationship Healthcare Agent Relationship Communication Blake Canela Child Primary Decision Maker [email or web address]@[email or web address] Healthcare Agents on File Name Relationship Healthcare Agent Relationship Communication Blake Canela Child Primary Decision Maker [email or web address]@[email or web address] Healthcare Agents on File Name Relationship Healthcare Agent Relationship Communication Blake Canela Child Primary Decision Maker [email or web address]@[email or web address] Healthcare Agents on File Name Relationship Healthcare Agent Relationship Communication Blake Canela Child Primary Decision Maker [email or web address]@[email or web address] Healthcare Agents on File Name Relationship Healthcare Agent Relationship Communication Blake Canela Child Primary Decision Maker [email or web address]@[email or web address] Healthcare Agents on File Name Relationship Healthcare Agent Relationship Communication Blake Canela Child Primary Decision Maker [email or web address]@[email or web address] Healthcare Agents on File Name Relationship Healthcare Agent Relationship Communication Blake Canela Child Primary Decision Maker [email or web address]@[email or web address] Healthcare Agents on File Name Relationship Healthcare Agent Relationship Communication Blake Canela Child Primary Decision Maker [email or web address]@[employer] Healthcare Agents on File Name Relationship Healthcare Agent Relationship Communication Blake Canela Child Primary Decision Maker [email or web address]@[employer] Healthcare Agents on File Name Relationship Healthcare Agent Relationship Communication Blake Canlea Child Primary Decision Maker [email or web address]@[employer] Latest Code Status on File Code Status Date Activated Date Inactivated Comments Full Code 11/22/2020 1:17 AM 11/24/2020 8:01 PM Healthcare Agents on File Name Relationship Healthcare Agent Relationship Communication Blake Canela Child Primary Decision Maker [email or web address]@[email or web address] Healthcare Agents on File Name Relationship Healthcare Agent Relationship Communication Blake Canela Child Primary Decision Maker [email or web address]@[email or web address] Latest Code Status on File Code Status Date Activated Date Inactivated Comments Full Code 09/17/2022 8:19 PM Code Status History Code Status Date Activated Date Inactivated Comments Full Code 11/22/2020 1:17 AM 11/24/2020 8:01 PM Healthcare Agents on File Name Relationship Healthcare Agent Relationship Communication Blake Canela Child Primary Decision Maker [email or web address]@[email or web address] Juan Canela Child Secondary Decision Maker Latest Code Status on File Code Status Date Activated Date Inactivated Comments Full Code 09/17/2022 8:19 PM 09/18/2022 8:12 PM Healthcare Agents on File Name Relationship Healthcare Agent Relationship Communication Blake Canela Child Primary Decision Maker [email or web address]@[employer] Juan Canela Child Secondary Decision Maker Healthcare Agents on File Name Relationship Healthcare Agent Relationship Communication Blake Canela Child Primary Decision Maker [email or web address]@[email or web address] Juan Canela Child Secondary Decision Maker Healthcare Agents on File Name Relationship Healthcare Agent Relationship Communication Blake Canela Child Primary Decision Maker [email or web address] Juan Canela Child Secondary Decision Maker Advance Directive Response Recorded Date/ Time Advance Directives No December 6:03am Chief Complaint and Reason for Visit Chief Complaint E55.9 E11.9 E78.5 I1 0 R41.3 E11.9 N18.3 E55.9 Chief Complaint E11.22 E55.9 E78.5 E 79.0 E83.42 I12.9 N18.30 Chief Complaint E11.22 E55.9 E78.5 E 79.0 E83.42 I12.9 N18.30 RENAL 6 MONTH F/U Reason for Visit CKD (chronic kidney disease) stage 3, GFR 30-59 ml/min Hyperlipidemia [id number] Hyperuricemia Hypomagnesemia Secondary hyperparathyroidism Type 2 diabetes mellitus with diabetic chronic kidney disease Vitamin D deficiency Chief Complaint E11.22 E55.9 E78.5 E 79.0 E83.42 I12.9 N18.30 RENAL 6 MONTH F/U MDD MDD Reason for Visit CKD (chronic kidney disease) stage 3, GFR 30-59 ml/min Hyperlipidemia [id number] Hyperuricemia Hypomagnesemia Secondary hyperparathyroidism Type 2 diabetes mellitus with diabetic chronic kidney disease Vitamin D deficiency Major depressive disorder, recurrent, severe with psychotic symptoms Chief Complaint E11.22 E55.9 E78.5 E 79.0 E83.42 I12.9 N18.30 RENAL 6 MONTH F/U MDD MDD CONSULT MARVIN HUSAIN RT THUMB PAIN,WX Reason for Visit CKD (chronic kidney disease) stage 3, GFR 30-59 ml/min Hyperlipidemia [id number] Hyperuricemia Hypomagnesemia Secondary hyperparathyroidism Type 2 diabetes mellitus with diabetic chronic kidney disease Vitamin D deficiency Major depressive disorder, recurrent, severe with psychotic symptoms Arthritis of carpometacarpal (CMC) joint of right thumb Chief Complaint E11.22 E55.9 E78.5 E 79.0 E83.42 I12.9 N18.30 RENAL 6 MONTH F/U MDD MDD CONSULT MARVIN UHSAIN RT THUMB PAIN,WX Diabetes Essential hypertension;Hypothyroidism, un Reason for Visit CKD (chronic kidney disease) stage 3, GFR 30-59 ml/min Hyperlipidemia [id number] Hyperuricemia Hypomagnesemia Secondary hyperparathyroidism Type 2 diabetes mellitus with diabetic chronic kidney disease Vitamin D deficiency Major depressive disorder, recurrent, severe with psychotic symptoms Arthritis of carpometacarpal (CMC) joint of right thumb Chief Complaint Admit Date December 29, 2023 11:33am MDD December 29, 2023 9:38pm MDD December 30, 2023 12:19pm CONSULT MARVIN HUSAIN RT THUMB PAIN,WX O ctober 2023 8:39am E11.9 I10 E03.9 E78.5 E55.9 February 10:07am E11.9 I10 February 23, 2024 6:25am Reason for Visit Admit Date Major depressive disorder, r ecurrent, severe with psychotic symptoms December 29, 2023 9:38pm Arthritis of carpometacarpal (CMC) joint of right thumb January 12, 2024 8:39am Chief Complaint Admit Date E11.9 I10 E03.9 E78.5 E55.9 February 10:07am E11.9 I10 February 23, 2024 6:25am 4-8 WEEKS March 08, 2024 8 :21am 8 WEEKS May 03, 2024 9 :40am Reason for Visit Admit Date Arthritis of carpometacarpal (CMC) joint of right thumb March 08, 2024 8:21am Arthritis of carpometacarpal (CMC) joint of right thumb May 03, 2024 9:40am Right hand pain May 03, 2024 9 :40am Chief Complaint Admit Date 8 WEEKS May 03, 2024 9 :40am Unknown June 07, 2024 4:25 pm renal f/u June 08, 2024 3:44 pm Reason for Visit Admit Date Arthritis of carpometacarpal (CMC) joint of right thumb May 03, 2024 9:40am Right hand pain May 03, 2024 9 :40am CKD (chronic kidney disease) stage 3, GF R 30-59 ml/min June 08, 2024 3:44pm Hyperlipidemia June 08, 2024 3:44 pm Hypertensive chronic kidney disease with stage 1 through stage 4 chronic ki June 08, 2024 3:44pm Hyperuricemia June 08, 2024 3:44 pm Hypomagnesemia June 08, 2024 3:44 pm Secondary hyperparathyroidism June 08, 2024 3:44pm Type 2 diabetes mellitus wit h diabetic chronic kidney disease June 08, 2024 3:44pm Vitamin D deficiency June 08, 2024 3:4 4pm Chief Complaint Admit Date Unknown June 07, 2024 4:25 pm renal f/u June 08, 2024 3:44 pm 3 months August 02, 2024 9:2 0am Reason for Visit Admit Date CKD (chronic kidney disease) stage 3, GF R 30-59 ml/min June 08, 2024 3:44pm Hyperlipidemia June 08, 2024 3:44 pm Hypertensive chronic kidney disease with stage 1 through stage 4 chronic ki June 08, 2024 3:44pm Hyperuricemia June 08, 2024 3:44 pm Hypomagnesemia June 08, 2024 3:44 pm Secondary hyperparathyroidism June 08, 2024 3:44pm Type 2 diabetes mellitus with diabetic c hronic kidney disease June 08, 2024 3:44pm Vitamin D deficiency June 08, 2024 3:4 4pm Arthritis of carpometacarpal (CMC) joint of right thumb August 02, 2024 9:20am Right hand pain August 02, 2024 9:2 0am Chief Complaint Admit Date 3 MONTHS November 01, 2024 9:08 am Reason for Visit Admit Date Arthritis of carpometacarpal (CMC) joint of right thumb November 01, 2024 9:08am Right hand pain November 01, 2024 9:08 am Assessments No Assessments Information AvailableNo Assessments Information AvailableNo Assessments Information AvailableNo Assessments Information Available Reason for Referral Status Reason Specialty Diagnoses / Procedures Referre d By Contact Referred To Contact Open Radiology Diagnoses Ovarian failure Procedures DEXA BONE DENSITY 2 SITES Obed Dunn MD [address] [place] [address] [facility] [address] [place] [address] Status Reason Specialty Diagnoses / Procedures Referre d By Contact Referred To Contact Open Radiology Diagnoses Other dysphagia Procedures FL MODIFIED BARIUM SWALLOW W VIDEO Obed Dunn MD [address] [place] [address] [facility] [address] [place] [address] Specialty Diagnoses / Procedures Referred By Contac t Referred To Contact Cardiology Diagnoses Tachycardia Procedures EKG 12 lead Delma Amin, [employer] HEADER - ACTIVITY THERAPIST [address] [place] [address] Referral ID Status Reason Start Date Expiration Date Visits Re quested Visits Authorized [id number] Open 03/04/2021 03/04/2022 1 1 Specialty Diagnoses / Procedures Referred By Contac t Referred To Contact Radiology Diagnoses Acute pain of right knee [id number] pain of right knee Procedures MRI KNEE RIGHT WO CONTRAST NC MRI LOWER EXTREM JT, W/O CONTRAST 60442 - NC MRI LOWER EXTREM JT, W/O CONTRAST Sandra Looney, [employer] HEADER - ACTIVITY THERAPIST [address] [place] [address] Referral ID Status Reason Start Date Expiration Date Visits Re quested Visits Authorized [id number] Closed 11/11/2021 11/11/2022 1 1 Additional Source Comments INFORMATION SOURCE (unrecogn ized section and content) DATE CREATED AUTHOR 11/21/2017 [facility] DATE CREATED AUTHOR AUTHOR'S ORGANIZ ATION 03/19/2018 [facility] DATE CREATED AUTHOR AUTHOR'S ORGANIZ ATION 11/18/2021 [facility] DATE CREATED AUTHOR AUTHOR'S ORGANIZ ATION 11/24/2022 [facility] DATE CREATED AUTHOR AUTHOR'S ORGANIZ ATION 09/30/2023 [facility] DATE CREATED AUTHOR AUTHOR'S ORGANIZ ATION 12/03/2023 [facility] DATE CREATED AUTHOR AUTHOR'S ORGANIZ ATION 12/31/2023 [facility] DATE CREATED AUTHOR AUTHOR'S ORGANIZ ATION 01/01/2024 [facility] DATE CREATED AUTHOR AUTHOR'S ORGANIZ ATION 03/26/2024 [facility] DATE CREATED AUTHOR AUTHOR'S ORGANIZ ATION 05/15/2024 [facility] DATE CREATED AUTHOR AUTHOR'S ORGANIZ ATION 07/26/2024 [facility] DATE CREATED AUTHOR AUTHOR'S ORGANIZ ATION 09/07/2024 [facility] DATE CREATED AUTHOR AUTHOR'S ORGANIZ ATION 09/19/2024 [facility] DATE CREATED AUTHOR AUTHOR'S ORGANIZ ATION 10/18/2024 [facility] DATE CREATED AUTHOR AUTHOR'S ORGANIZ ATION 10/27/2024 [facility] DATE CREATED AUTHOR AUTHOR'S ORGANIZ ATION 10/29/2024 [facility] DATE CREATED AUTHOR AUTHOR'S ORGANIZ ATION 11/24/2024 [facility] DATE CREATED AUTHOR AUTHOR'S ORGANIZ ATION 11/25/2024 [facility] DATE CREATED AUTHOR AUTHOR'S ORGANIZ ATION 12/01/2024 [facility] DATE CREATED AUTHOR AUTHOR'S ORGANIZ ATION 12/04/2024 [facility] Reason for Visit (unrecogniz ed section and content) Status Reason Specialty Diagnoses / Procedures Referre d By Contact Referred To Contact Open Radiology Diagnoses Ovarian failure Procedures DEXA BONE DENSITY 2 SITES Obed Dunn MD [address] [place] [address] [facility] [address] [place] [address] Reason Comments Cerebrovascular Accident Pt family membe r states pt took a nap, she woke up and was not acting right. Slurred speech, weakness, confusion. Last known well [id number] Status Reason Specialty Diagnoses / Procedures Referre d By Contact Referred To Contact Open Radiology Diagnoses Other dysphagia Procedures FL MODIFIED BARIUM SWALLOW W VIDEO Obed Dunn MD [address] [place] [address] [facility] [address] [place] [address] Reason Comments Abdominal Pain Patient arrives to [facility] today with complaints of LUQ pain that began yesterday. Status Reason Specialty Diagnoses / Procedures Referre d By Contact Referred To Contact Diagnoses PE (pulmonary thromboembolism) (HCC) PE Lyndsay Easton MD [facility] [place] [address] [facility] Status Reason Specialty Diagnoses / Procedures Referre d By Contact Referred To Contact Closed Radiology Diagnoses Lymphadenopathy Procedures NC LAP,LYMPH NODE BX Obed Dunn MD [address] [place] [address] [facility] [address] [place] [address] Reason Comments Leg Swelling bilat legs with christi e and pain - denies injury - has been swollen for 3-4 days Status Reason Specialty Diagnoses / Procedures Referred By Contact Referred To Contact Open Specialty Services Required Physical Therapy Diagnoses Imbalance Procedures physical therapy Obed Dunn MD [address] [place] [address] [facility] [address] [place] [address] Reason Comments Fall pt fell this morning but not sure if she hit her head Specialty Diagnoses / Procedures Referred By Contac t Referred To Contact Physical Therapy Diagnoses Imbalance Procedures physical therapy Obed Dunn MD [address] [place] [address] [facility] [address] [place] [address] Referral ID Status Reason Start Date Expiration Date V isits Requested Visits Authorized [id number] Open Specialty Services Required 01/01/2021 01/01/2022 20 20 Specialty Diagnoses / Procedures Referred By Yevgeniy campos Referred To Contact Radiology Diagnoses PE (pulmonary thromboembolism) (HCC) Procedures CTA CHEST W CONTRAST [place] [address] [place] [address] Referral ID Status Reason Start Date Expiration Date Visits Re quested Visits Authorized [id number] Closed 07/25/2021 07/25/2022 1 1 Reason Comments Leg Pain Pt has right leg kevin n to her right upper calf area, denies injury but very painful to walk Reason Comments Fall Fell at [facility] r witnessed. Confusion at times. Specialty Diagnoses / Procedures Referred By Yevgeniy campos Referred To Contact Radiology Diagnoses Acute pain of right knee [id number] pain of right knee Procedures MRI KNEE RIGHT WO CONTRAST NC MRI LOWER EXTREM JT, W/O CONTRAST 37923 - NC MRI LOWER EXTREM JT, W/O CONTRAST Sandra Looney, [employer] HEADER - ACTIVITY THERAPIST [address] [place] [address] Referral ID Status Reason Start Date Expiration Date Visits Re quested Visits Authorized [id number] Closed 11/11/2021 11/11/2022 1 1 Reason Comments Knee Pain C/O left knee pain t hat started this morning Reason Comments Chest Pain C/o chest pain that started about 20 minutes ago. Specialty Diagnoses / Procedures Referred By Yevgeniy t Referred To Contact Diagnoses Precordial pain Chest pain Hypoglycemia Morales, MD [place] [address] [place] [address] [facility] [address] [place] [address] Referral ID Status Reason Start Date Expiration Date Visits Re quested Visits Authorized [id number] 1 1 Reason Comments Knee Pain Right knee/leg pain that has been going on for the past couple weeks. Recently started on Celecoxib for her right thumb. Denies injury. Reason Comments DM Foot Care Dm nail care Ordered Prescriptions (unrec ognized section and content) Prescription Sig Dispensed Refills Start Date End Da te aspirin (ASPIRIN CHILDRENS) 81 MG chewable tablet Take 2 tablets by mouth daily 60 tablet 1 10/25/2020 Prescription Sig Dispensed Refills Start Date End Da te apixaban (ELIQUIS) 5 MG TABS tablet Take 1 tablet by mouth 2 times daily for 23 days 46 tablet 0 12/02/2020 12/25/2020 apixaban (ELIQUIS) 5 MG TABS tablet Take 2 tablets by mouth 2 times daily for 7 days 28 tablet 0 11/24/2020 12/01/2020 apixaban starter pack (ELIQUIS DVT/PE STARTER PACK) 5 MG TBPK tablet Take 1 tablet by mouth See Admin Instructions 74 tablet 0 11/24/2020 11/24/2020 Prescription Sig Dispensed Refills Start Date End Da te potassium chloride (KLOR-CON M) 20 MEQ extended release tablet Take 1 tablet by mouth daily 10 tablet 0 12/23/2020 furosemide (LASIX) 20 MG tablet Take 0.5 tablets by mouth daily 5 tablet 0 12/23/2020 Prescription Sig Dispensed Refills Start Date End Da te traMADol (ULTRAM) 50 MG tabletIndications:Effusio n of right knee Take 1 tablet by mouth every 8 hours as needed for Pain for up to 7 days. 20 tablet 0 09/25/2021 10/02/2021 Prescription Sig Dispensed Refills Start Date End Da te HYDROcodone-acetaminophe n (NORCO) 5-325 MG per tabletIndications:Infrap atellar bursitis of left knee Take 1 tablet by mouth every 6 hours as needed for Pain for up to 3 days. Intended supply: 3 days. Take lowest dose possible to manage pain Max Daily Amount: 4 tablets 12 tablet 0 04/30/2022 05/03/2022 Prescription Sig Dispensed Refills Start Date End Da te amLODIPine (NORVASC) 5 MG tablet Take 1 tablet by mouth daily 30 tablet 3 09/19/2022 tamsulosin (FLOMAX) 0.4 MG capsule Take 1 capsule by mouth daily 30 capsule 3 09/19/2022 Scheduled Active and Recently Administ ered Medications (unrecognized section and content) Medication Order 10/23/2020 10/24/2020 10/25/2020 0.9 % sodium chloride bolus (COMPLETED) 500 mL (5.2 mL/kg), Intravenous, at 1,000 mL/hr, Administer over 0.5 Hours, ONCE, On Thu10/25/20 at 0030, For 1 dose 0020 (New Bag - Prov ider: Katja Boswell RN)0054 (Stopped - Provider: Katja Boswell RN) aspirin chewable tablet 162 mg (COMPLETED) 162 mg, Oral, ONCE, On Thu10/25/20 at 2000, For 1 dose 195 (Given - Provid er: Tamika Lenz RN) aspirin chewable tablet 324 mg (COMPLETED) 324 mg, Oral, ONCE, On Thu10/25/20 at 0015, For 1 dose 0023 (Given - Provid er: Katja Boswell RN) atorvastatin (LIPITOR) tablet 80 mg (COMPLETED) 80 mg, Oral, ONCE, On Thu10/25/20 at 0015, For 1 dose 005 (Given - Provid er: Katja Boswell RN) insulin glargine (LANTUS) injection vial 30 Units (COMPLETED) 30 Units, Subcutaneous, ONCE, On Thu10/25/20 at 1700, For 1 dose 171 (Given - Provid er: Erin Ashley RN) PRN Medication Order 10/23/2020 10/24/2020 10/25/2020 iopamidol (ISOVUE-370) 76 % injection 100 mL (COMPLETED) 100 mL, Intravenous, IMG ONCE PRN, Other, Starting on Thu10/24/20 at 2354, For 1 dose 0013 (Given - Provid er: Charley Durant) Scheduled Medication Order 11/19/2020 11/20/2020 11/21/2020 0.9 % sodium chloride bolus (COMPLETED) 1,000 mL (10.6 mL/kg), Intravenous, at 1,000 mL/hr, Administer over 1 Hours, ONCE, On Thu11/21/20 at 1430, For 1 dose 1426 (New Bag - Prov ider: Maggy Gold RN)1526 (Stopped - Provider: Stephanie Sanders RN) aluminum & magnesium hydroxide-simethicone (MAALOX) 30 mL, lidocaine viscous hcl (XYLOCAINE) 5 mL (GI COCKTAIL) (COMPLETED) Oral, ONCE, On Thu11/21/20 at 1430, For 1 dose, Take 5 mL from lidocaine viscous 2% cup and mix with 30 mL of maalox and then administer. 1426 (Given - Provid er: Maggy Gold RN) famotidine (PEPCID) injection 20 mg (COMPLETED) 20 mg, Intravenous, ONCE, On Thu11/21/20 at 1430, For 1 dose, Administer over 2 minutes. 1426 (Given - Provid er: Maggy Gold RN) heparin (porcine) injection 7,540 Units (COMPLETED) 7,540 Units (rounded from 7,544 Units = 80 Units/kg 94.3 kg), Intravenous, ONCE, On Thu11/21/20 at 1800, For 1 dose 1847 (Given - Provid er: Ronald Garcia RN) ketorolac (TORADOL) injection 30 mg (COMPLETED) 30 mg, Intravenous, ONCE, On Thu11/21/20 at 1430, For 1 dose, Do not administer for more than 5 days. 1426 (Given - Provid er: Maggy Gold RN) levoFLOXacin (LEVAQUIN) 500 MG/100ML infusion 500 mg (COMPLETED) 500 mg, Intravenous, ONCE, 1 dose, On Thu11/21/20 at 1645 1641 (New Bag - Prov ider: Stephanie Sanders RN)1841 (Stopped - Provider: Stephanie Sanders RN) ondansetron (ZOFRAN) injection 4 mg (COMPLETED) 4 mg, Intravenous, ONCE, On Thu11/21/20 at 1430, For 1 dose 1426 (Given - Provid er: Maggy Gold RN) Continuous Medication Order 11/19/2020 11/20/2020 11/21/2020 0.9 % sodium chloride infusion 1,000 mL, Intravenous, at 125 mL/hr, Administer over 8 Hours, CONTINUOUS, Starting on Thu11/21/20 at 1645 1641 (New Bag - Prov ider: Stephanie Sanders RN)2308 (Patient Transferred to Other Facility - Provider: Shashank Daniels RN) heparin 25,000 units in dextrose 5% 250 mL (premix) infusion 18 Units/kg/hr 94.3 kg (16.974 mL/hr, rounded to 17 mL/hr), Intravenous, at 17 mL/hr, CONTINUOUS, Starting on 8/18/21 at 1800, HIGH DOSE HEPARIN PROTOCOL Initial dose is 18 units/kg/hr. Recorded patient weight: 94.3 kg * 18 units/kg/hr = initial rate of 1698 units/hr 80 units/kg IV x 1 (max 10,000 units), then 18 units/kg/hr (max initial rate 2100 units/hr) Adjust infusion rate based on aPTT results (aPTT target range 1.5-2.5) aPTT < 30 Heparin Full re-bolus Increase infusion by 4 units/kg/hr aPTT 30-59 Heparin Half re-bolus Increase infusion by 2 units/kg/hr aPTT 60-80 No bolus No change aPTT 81-100 No bolus Decrease infusion by 2 units/kg/hr aPTT > 100 Hold heparin for 60 min Decrease infusion by 3 units/kg/hr aPTT > 120 Hold heparin for 60 min Decrease infusion by 4 units/kg/hr Check aPTT 6 hours after initiation and 6 hours after every dose change. When aPTT is within target range for two consecutive times, check aPTT once daily. 1848 (New Bag - Prov ider: Ronald Garcia RN)2308 (Patient Transferred to Other Facility - Provider: Shashank Daniels RN) PRN Medication Order 11/19/2020 11/20/2020 11/21/2020 iopamidol (ISOVUE-370) 76 % injection 100 mL (COMPLETED) 100 mL, Intravenous, IMG ONCE PRN, Other, Starting on Thu11/21/20 at 1634, For 1 dose 1708 (Given - Provid er: Yesi Callejas) iopamidol (ISOVUE-370) 76 % injection 75 mL (COMPLETED) 75 mL, Intravenous, IMG ONCE PRN, Other, Starting on Thu11/21/20 at 1523, For 1 dose 1533 (Given - Provid er: Anel Patel) Scheduled Medication Order 11/22/2020 11/23/2020 11/24/2020 apixaban (ELIQUIS) tablet 10 mg 10 mg, Oral, 2 TIMES DAILY, First dose on 11/24/20 at 1645, For 7 days, ANTICOAGULANT 1743 (Given - Provider: Loreta Paiz, CRIS) aspirin chewable tablet 162 mg 162 mg, Oral, DAILY, First dose on Nia 11/22/20 at 1015 1101 (Given - Provider: Kirstin Woods RN) 0904 (Given - Provider: Kirstin Woods, CRIS) 0751 (Given - Provider: Loreta Paiz, CRIS) atorvastatin (LIPITOR) tablet 20 mg 20 mg, Oral, DAILY, First dose on Thu11/22/20 at 1015, Substituted for Simvastatin (ZOCOR). 1101 (Given - Provider: Kirstin Woods RN) 0904 (Given - Provider: Kirstin Woods RN) 0751 (Given - Provider: Loreta Paiz RN) azithromycin (ZITHROMAX) 500 mg in dextrose 5% 250 mL IVPB (CANCELED) 500 mg, Intravenous, EVERY 24 HOURS, 7 doses, First dose on Thu11/22/20 at 0200, Last dose on Thu11/28/20 at 0200 0205 (New Bag - Provider: Juaquin Mcadams)0419 (Stopped - Provider: Juaquin Mcadams) 0325 (New Bag - Provider: Renzo Mcdaniel RN)0443 (Stopped - Provider: Renzo Mcdaniel RN) 0153 (New Bag - Provider: Elvia Jc RN)0358 (Stopped - Provider: Elvia Jc, CRIS) cefTRIAXone (ROCEPHIN) 1000 mg IVPB in 50 mL D5W minibag (CANCELED) 1,000 mg, Intravenous, EVERY 24 HOURS, First dose on Thu11/22/20 at 0200, Until Discontinued 0205 (New Bag - Provider: Juaquin Mcadams)0419 (Stopped - Provider: Juaquin Mcadams) 0325 (New Bag - Provider: Renzo Mcdaniel RN)0356 (Stopped - Provider: Renzo Mcdaniel RN) 0153 (New Bag - Provider: Elvia Jc, CRIS)0259 (Stopped - Provider: Elvia Jc, CRIS) gabapentin (NEURONTIN) capsule 300 mg 300 mg, Oral, 3 TIMES DAILY, First dose on Thu11/22/20 at 1015 1101 (Given - Provider: Kirstin Woods RN)1548 (Not Given - Provider: Kirstin Woods RN - Reason: Other - Comment: first dose given late)2124 (Given - Provider: Renzo Mcdaniel RN) 0904 (Given - Provider: Kirstin Woods RN)1443 (Given - Provider: Kirstin Woods RN)2044 (Given - Provider: Elvia Jc RN) 0750 (Given - Provider: Loreta Paiz RN)1339 (Given - Provider: Loreta Paiz RN)2100 (Due) insulin lispro (HUMALOG) injection vial 0-3 Units 0-3 Units, Subcutaneous, NIGHTLY, First dose on Nia 11/22/20 at 0145, If continuous tube feedings/TPN/NPO, give correction dose based on result, no reduction in dose. If eating or bolus tube feeding: Low Dose Bedtime Correction Algorithm Glucose: Dose: 70-139 No Insulin 140-249 1 Unit 250-349 2 Units 350 and above 3 Units 0149 (Not Given - Provider: Juaquin Mcadams - Reason: Order parameters not met)2136 (Given - Provider: Renzo Mcdaniel RN) 2045 (Given - Provider: Elvia Jc RN) 2100 (Due) insulin lispro (HUMALOG) injection vial 0-6 Units 0-6 Units, Subcutaneous, 3 TIMES DAILY WITH MEALS, First dose on Nia 11/22/20 at 0800, Low Dose Correction Algorithm Glucose: Dose: 70-139 No Insulin 140-199 1 Unit 200-249 2 Units 250-299 3 Units 300-349 4 Units 350-399 5 Units 400 and above 6 Units 0740 (Not Given - Provider: Kirstin Woods RN - Reason: Order parameters not met)1200 (Not Given - Provider: Kirstin Woods RN - Reason: Order parameters not met)1708 (Not Given - Provider: Kirstin Woods RN - Reason: Order parameters not met) 0903 (Not Given - Provider: Kirstin Woods RN - Reason: Order parameters not met)1200 (Given - Provider: Kirstin Woods RN)1711 (Not Given - Provider: Kirstin Woods RN - Reason: Order parameters not met) 0853 (Not Given - Provider: Loreta Paiz RN - Reason: Order parameters not met)1207 (Not Given - Provider: Loreta Paiz RN - Reason: Order parameters not met)1750 (Not Given - Provider: Loreta Paiz RN - Reason: Order parameters not met) levothyroxine (SYNTHROID) tablet 100 mcg (CANCELED) 100 mcg, Oral, DAILY WITH BREAKFAST, First dose (after last modification) on 11/24/20 at 0700, Tube feeding (TF) interaction, obtain physician order to manage, recommend holding TF for 30 minutes before and after dose. 0750 (Given - Provider: Loreta Paiz, CRIS) levothyroxine (SYNTHROID) tablet 88 mcg (CANCELED) 88 mcg, Oral, DAILY WITH BREAKFAST, First dose on Nia 11/22/20 at 1015, Tube feeding (TF) interaction, obtain physician order to manage, recommend holding TF for 30 minutes before and after dose. 1101 (Given - Provider: Kirstin Woods RN) 0904 (Given - Provider: Kirstin Woods RN) levothyroxine (SYNTHROID) tablet 88 mcg 88 mcg, Oral, DAILY WITH BREAKFAST, First dose (after last modification) on 11/25/20 at 0700, Tube feeding (TF) interaction, obtain physician order to manage, recommend holding TF for 30 minutes before and after dose. OLANZapine (ZYPREXA) tablet 20 mg 20 mg, Oral, NIGHTLY, First dose on Nia 11/22/20 at 2100 2124 (Given - Provider: Renzo Mcdaniel RN) 2044 (Given - Provider: Elvia Jc RN) 2100 (Due) primidone (MYSOLINE) tablet 50 mg 50 mg, Oral, 2 TIMES DAILY, First dose on Nia 11/22/20 at 1015 1101 (Given - Provider: Kirstin Woods RN)2124 (Given - Provider: Renzo Mcdaniel RN) 0904 (Given - Provider: Kirstin Woods RN)204 (Given - Provider: Elvia Jc RN) 0751 (Given - Provider: Loreta Paiz, CRIS)2100 (Due) propranolol (INDERAL LA) extended release capsule 120 mg 120 mg, Oral, DAILY, First dose on Nia 11/22/20 at 1015, Do not crush or break. 1101 (Given - Provider: Kirstin Woods RN) 0904 (Given - Provider: Kirstin Woods RN) 0752 (Given - Provider: Loreta Paiz RN) QUEtiapine (SEROQUEL) tablet 100 mg 100 mg, Oral, 2 TIMES DAILY, First dose on Nia 11/22/20 at 1015 1101 (Given - Provider: Kirstin Woods RN)2124 (Given - Provider: Renzo Mcdaniel RN) 0904 (Given - Provider: Kirstin Woods RN)204 (Given - Provider: Elvia Jc RN) 0750 (Given - Provider: Loreta Paiz, RN)2100 (Due) sodium chloride flush 0.9 % injection 5-40 mL 5-40 mL, Intravenous, EVERY 12 HOURS SCHEDULED (2 times per day), First dose on Nia 11/22/20 at 0900, For Line Patency: Peripheral IV = 5 mL; Midline or Central Line = 10 mL/lumen. If following IV push medication, administer flush at same rate as the IV push. Flush volume is determined by type of infusion therapy being given. For non-viscous solutions use: Peripheral IV = 5 mL Midline or Central Line = 10 mL/lumen For viscous solutions (i.e. blood components, parenteral nutrition, contrast media, or after obtaining blood sample) use: Peripheral IV = 10 mL Midline or Central Line = 20 mL/lumen 0843 (Not Given - Provider: Kirstin Woods RN - Reason: IV Fluid Infusing)2124 (Given - Provider: Renzo Mcdaniel RN) 0901 (Not Given - Provider: Kirstin Woods RN - Reason: IV Fluid Infusing)204 (Not Given - Provider: Elvia Jc RN - Reason: IV Fluid Infusing) 0749 (Given - Provider: Loreta Paiz RN)2100 (Due) Continuous Medication Order 11/22/2020 11/23/2020 11/24/2020 heparin 25,000 units in dextrose 5% 250 mL (premix) infusion (CANCELED) 5-30 Units/kg/hr 96.4 kg (4.82-28.92 mL/hr, rounded to 4.8-28.9 mL/hr), Intravenous, at 4.8-28.9 mL/hr, CONTINUOUS, Starting on Nia 11/22/20 at 0145, HIGH DOSE HEPARIN PROTOCOL Initial dose is 18 units/kg/hr. Recorded patient weight: 96.4 kg * 18 units/kg/hr = initial rate of 1735 units/hr 80 units/kg IV x 1 (max 10,000 units), then 18 units/kg/hr (max initial rate 2100 units/hr) Adjust infusion rate based on aPTT results (aPTT target range 1.5-2.5) aPTT < 30 Heparin Full re-bolus Increase infusion by 4 units/kg/hr aPTT 30-59 Heparin Half re-bolus Increase infusion by 2 units/kg/hr aPTT 60-80 No bolus No change aPTT 81-100 No bolus Decrease infusion by 2 units/kg/hr aPTT > 100 Hold heparin for 60 min Decrease infusion by 3 units/kg/hr aPTT > 120 Hold heparin for 60 min Decrease infusion by 4 units/kg/hr Check aPTT 6 hours after initiation and 6 hours after every dose change. When aPTT is within target range for two consecutive times, check aPTT once daily. 0143 (New Bag - Provider: Juaquin Mcadams)0232 (Stopped - Provider: Juaquin Mcadams)0334 (Restarted - Provider: Juaquin Mcadams)1900 (Rate/Dose Verify - Provider: Lynsey Espinosa RN - Comment: rate verified with Renzo LYNCH) 0041 (New Bag - Provider: Renzo Mcdaniel RN)0722 (Handoff - Provider: Lynsey Espinosa RN) 0852 (Rate/Dose Verify - Provider: Loreta Paiz RN)1705 (Stopped - Provider: Loreta Paiz RN) PRN Medication Order 11/22/2020 11/23/2020 11/24/2020 0.9 % sodium chloride infusion 25 mL, Intravenous, at 100 mL/hr, PRN, If patient receiving piggyback infusions without ordered maintenance IV fluids or with frequent/long duration piggyback infusions, Starting on Nia 11/22/20 at 0117, Administer at the same rate as the piggyback being infused. 1609 (Stopped - Prov ider: Loreta Paiz RN) acetaminophen (TYLENOL) suppository 650 mg(Linked Group 1) 650 mg, Rectal, EVERY 6 HOURS PRN, Pain Mild (1-3), Fever, For temp greater than 100.4 F (38 C), Starting on Nia 11/22/20 at 0117, Administer if oral route cannot be used. acetaminophen (TYLENOL) tablet 650 mg(Linked Group 1) 650 mg, Oral, EVERY 6 HOURS PRN, Pain Mild (1-3), Fever, For temp greater than 100.4 F (38 C), Starting on Nia 11/22/20 at 0117, Maximum dose of acetaminophen is 4000 mg from all sources in 24 hours. albuterol (PROVENTIL) nebulizer solution 2.5 mg 2.5 mg, Nebulization, As Directed - RT (PRN), Wheezing, Starting on Nia 11/22/20 at 0117 dextrose 5 % solution 100 mL/hr, Intravenous, at 100 mL/hr, PRN, Low blood sugar, Starting on Nia 11/22/20 at 0117, Start infusion following administration of dextrose 50% or glucagon. dextrose 50 % IV solution 12.5 g, Intravenous, PRN, Low blood sugar, Blood glucose less than 70 mg/dL and patient NOT ALERT or NPO., Starting on Nia 11/22/20 at 0117, If patient does not respond within 5 minutes, repeat dose x1. Start D5W at 100 mL/hour until ordering provider can be reached. Repeat blood glucose in 15 minutes. If blood glucose is less than 70 mg/dL, repeat treatment and recheck blood glucose in 15 minutes x2. If using Glucostabilizer, dose as instructed per system. glucagon (rDNA) injection 1 mg 1 mg, Intramuscular, PRN, Low blood sugar, Blood glucose less than 70 mg/dL and patient NOT ALERT or NPO and does not have IV access., Starting on Nia 11/22/20 at 0117, After administration, attempt intravenous access and start D5W at 100 mL/hr. Repeat blood glucose in 15 minutes x2 and notify provider. glucose (GLUTOSE) 40 % oral gel 15 g 15 g, Oral, PRN, Low blood sugar, Starting on Nia 11/22/20 at 0117, If blood glucose less than 50 mg/dL and patient ALERT and TOLERATING PO, give 2 tubes glucose gel. If blood glucose less than 70 mg/dL and patient ALERT and TOLERATING PO, give 1 tube glucose gel. Repeat blood glucose in 15 minutes. If blood glucose is less than 70 mg/dL, repeat treatment and recheck blood glucose in 15 minutes x2 and notify provider. guaiFENesin (ROBITUSSIN) 100 MG/5ML oral solution 200 mg 200 mg, Oral, EVERY 4 HOURS PRN, Cough, Starting on Nia 11/22/20 at 0117 magnesium sulfate 1000 mg in dextrose 5% 100 mL IVPB 1,000 mg, Intravenous, at 100 mL/hr, Administer over 1 Hours, PRN, Other, Per IV Magnesium Replacement Protocol, Starting on Nia 11/22/20 at 0117, Mg Lab Replacement Action 1.4-1.6 1 gram IVPB x 2 doses (2 gram Total) 1.0-1.3 1 gram IVPB x 4 doses (4 gram Total) <1.0 CALL PHYSICIAN and 1 gram IVPB x 4 doses (4 gram Total) Infuse at 1 gram/hr Repeat Mag level next AM Protocol not for use in Patients with CrCl<30ml/min ondansetron (ZOFRAN) injection 4 mg(Linked Group 2) 4 mg, Intravenous, EVERY 6 HOURS PRN, Nausea, Vomiting, Starting on Nia 11/22/20 at 0117, Administer if oral route cannot be used. ondansetron (ZOFRAN-ODT) disintegrating tablet 4 mg(Linked Group 2) 4 mg, Oral, EVERY 8 HOURS PRN, Nausea, Vomiting, Starting on Nia 11/22/20 at 0117 polyethylene glycol (GLYCOLAX) packet 17 g 17 g, Oral, DAILY PRN, Constipation, Starting on Nia 11/22/20 at 0117, First line therapy for constipation potassium bicarb-citric acid (EFFER-K) effervescent tablet 40 mEq(Linked Group 3) 40 mEq, Oral, PRN, Per Potassium Replacement Protocol, Starting on Nia 11/22/20 at 0117, Administer as alternative if patient unable to tolerate oral tablet. K Lab Replacement Action 3.1 to 3.5 40 mEq ORAL x 1 Under 3.1 Refer to IV replacement protocol Recheck K level in AM. Protocol not for use in patients with CrCl less than 30 mL/min. Do not chew or crush. Dissolve flavored tablets completely in 3 to 4 ounces of cold water; unflavored tablets may be dissolved in 3 to 4 ounces of cold juice. Patient to sip slowly over a 5 to 10 minute period. May further dilute if GI adverse effects occur. potassium chloride (KLOR-CON M) extended release tablet 40 mEq(Linked Group 3) 40 mEq, Oral, PRN, Potassium Replacement, Starting on Nia 11/22/20 at 0117, May give oral solution if patient unable to tolerate tablet. K Lab Replacement Action 3.1-3.5 40 mEq ORAL x 1 2.7-3.0 Refer to IV replacement orders < 2.7 Refer to IV replacement orders Recheck K level in AM. Not for use in patients with CrCl less than 30 mL/min. potassium chloride 10 mEq/100 mL IVPB (Peripheral Line)(Linked Group 3) 10 mEq, Intravenous, at 100 mL/hr, PRN, Potassium Replacement, Starting on Nia 11/22/20 at 0117, K Lab Replacement Action 2.7-3.0 10 mEq IVPB x 6 doses (60 mEq Total) < 2.7 CALL PHYSICIAN and 10 mEq IVPB x 6 doses (60 mEq Total) Infuse at 10 mEq/hr Repeat Potassium lab 1 hour after final administration. Not for use in patients with CrCl less than 30 mL/min. sodium chloride flush 0.9 % injection 10 mL 10 mL, Intravenous, PRN, Line Care, After every IV line use, Starting on Nia 11/22/20 at 0117 Linked Groups Order Group 1: acetaminophen (TYLENOL) tablet 650 mgJump to med 650 mg, Oral, EVERY 6 HOURS PRN, Pain Mild (1-3), Fever, For temp greater than 100.4 F (38 C), Starting on Nia 11/22/20 at 0117
Maximum dose of acetaminophen is 4000 mg from all sources in 24 hours.
Or acetaminophen (TYLENOL) suppository 650 mgJump to med 650 mg, Rectal, EVERY 6 HOURS PRN, Pain Mild (1-3), Fever, For temp greater than 100.4 F (38 C), Starting on Nia 11/22/20 at 0117
Administer if oral route cannot be used.
Group 2: ondansetron (ZOFRAN-ODT) disintegrating tablet 4 mgJump to med 4 mg, Oral, EVERY 8 HOURS PRN, Nausea, Vomiting, Starting on Nia 11/22/20 at 0117 Or ondansetron (ZOFRAN) injection 4 mgJump to med 4 mg, Intravenous, EVERY 6 HOURS PRN, Nausea, Vomiting, Starting on Nia 11/22/20 at 0117
Administer if oral route cannot be used.
Group 3: potassium chloride (KLOR-CON M) extended release tablet 40 mEqJump to med 40 mEq, Oral, PRN, Potassium Replacement, Starting on Nia 11/22/20 at 0117
May give oral solution if patient unable to tolerate tablet. K Lab Replacement Action 3.1-3.5 40 mEq ORAL x 1 & nbsp; 2.7-3.0 Refer to IV replacement orders < 2.7 Refer to IV replacement orders Recheck K level in AM. Not for use in patients with CrCl less than 30 mL/min.
Or potassium bicarb-citric acid (EFFER-K) effervescent tablet 40 mEqJump to med 40 mEq, Oral, PRN, Per Potassium Replacement Protocol, Starting on Nia 11/22/20 at 0117
Administer as alternative if patient unable to tolerate oral tablet. K Lab R eplac ement Action 3.1 to 3.5 40 mEq ORAL x 1 Under 3.1 Refer to IV replacement protocol Recheck K level in AM. Protocol not for use in patients with CrCl less than 30 mL/min. Do not chew or crush. Dissolve flavored tablets completely in 3 to 4 ounces of cold water; unflavored tablets may be dissolved in 3 to 4 ounces of cold juice. Patient to sip slowly over a 5 to 10 minute period. May further dilute if GI adverse effects occur.
Or potassium chloride 10 mEq/100 mL IVPB (Peripheral Line)Jump to med 10 mEq, Intravenous, at 100 mL/hr, PRN, Potassium Replacement, Starting on Nia 11/22/20 at 0117
K Lab Replacement Action 2.7-3.0 10 mEq IVPB x 6 doses (60 mEq Total) < 2.7 CALL PHYSICIAN and 10 mEq IVPB x 6 doses (60 mEq Total) Infuse at 10 mEq/hr Repeat Potassium lab 1 hour after final administration. Not for use in patients with CrCl less than 30 mL/min.
Scheduled Medication Order 09/23/2021 09/24/2021 09/25/2021 HYDROcodone-acetaminophen (NORCO) 5-325 MG per tablet 1 tablet (COMPLETED) 1 tablet, Oral, ONCE, 1 dose, On Thu09/25/21 at 0800, Maximum dose of acetaminophen is 4000 mg from all sources in 24 hours. 0806 (Given - Provid er: Sharri Mccann RN) ketorolac (TORADOL) injection 30 mg (COMPLETED) Ketorolac is contraindicated in patients with advanced renal impairment and in patients at risk of renal failure due to volume depletion. For 65 years of age and older OR weight less than 50 kg, use 15 mg IV every 6 hours; MAX dose: 60 mg/day. Dose greater than 30 mg must be administered via intramuscular route. Do not administer for more than 5 days., 30 mg, IntraMUSCular, ONCE, 1 dose, On Thu09/25/21 at 0845 0838 (Given - Provid er: Sharri Mccann RN) Scheduled Medication Order 09/16/2022 09/17/2022 09/18/2022 amLODIPine (NORVASC) tablet 5 mg 5 mg, Oral, DAILY, First dose on Nia 09/18/22 at 1500, Until Discontinued 1531 (Given - Provid er: Karyn Branch RN) apixaban (ELIQUIS) tablet 2.5 mg 2.5 mg, Oral, 2 TIMES DAILY, First dose on Thu09/17/22 at 2100, Until Discontinued, Indication of Use: Treatment-DVT/PE, ANTICOAGULANT 2142 (Given - Provider: Bandar Dudley RN) 829 (Given - Provider: Karyn Branch RN)2099 (Due) aspirin chewable tablet 162 mg 162 mg, Oral, DAILY, First dose on Thu09/17/22 at 2044, Until Discontinued 2100 (Not Given - Provider: Bandar Dudley RN - Reason: Other - Comment: given in ED) 829 (Given - Provider: Karyn Branch RN) aspirin tablet 325 mg (COMPLETED) 325 mg, Oral, ONCE, 1 dose, On Thu09/17/22 at 1644 1656 (Given - Provider: Stephanie Sanders RN) atorvastatin (LIPITOR) tablet 40 mg 40 mg, Oral, DAILY, First dose on Thu09/17/22 at 2044, Until Discontinued 2143 (Given - Provider: Bandar Dudley RN) 829 (Given - Provider: Karyn Branch RN) cefTRIAXone (ROCEPHIN) 1,000 mg in sodium chloride 0.9 % 50 mL IVPB (mini-bag) 1,000 mg, IntraVENous, EVERY 24 HOURS, First dose on Thu09/17/22 at 2044, Until Discontinued, Antimicrobial Indications: Urinary Tract Infection, UTI duration of therapy: 5 days 2141 (New Bag - Provider: Bandar Dudley RN)2233 (Stopped - Provider: Bandar Dudley RN) 2044 (Due) dextrose 5 % and 0.9 % nacl bolus (COMPLETED) 1,000 mL, IntraVENous, at 495.9 mL/hr, Administer over 121 Minutes, ONCE, On Thu09/17/22 at 164, For 1 dose 1656 (New Bag - Provider: Stephanie Sanders RN)1906 (Stopped - Provider: Wayne Petersen RN) folic acid (FOLVITE) tablet 1 mg 1 mg, Oral, DAILY, First dose on Thu09/18/22 at 0900, Until Discontinued 829 (Given - Provid er: Karyn Branch RN) insulin lispro (HUMALOG) injection vial 0-4 Units 0-4 Units, SubCUTAneous, 3 TIMES DAILY WITH MEALS, First dose on Thu09/18/22 at 0800, Until Discontinued, Corrective Low Dose Algorithm Glucose: Dose: 70-199 No Insulin 200-249 1 Unit 250-299 2 Units 300-349 3 Units Over 349 4 Units and notify physician 08 (Not Given - Provider: Karyn Branch RN - Reason: Order parameters not met)1133 (Not Given - Provider: Karyn Branch RN - Reason: Pt NPO)1654 (Not Given - Provider: Karyn Branch RN - Reason: Other) insulin lispro (HUMALOG) injection vial 0-4 Units 0-4 Units, SubCUTAneous, NIGHTLY, First dose on Thu09/17/22 at 2100, Until Discontinued, If continuous tube feedings/TPN/NPO, give correction dose based on result, no reduction in dose. If eating or bolus tube feeding: Corrective Bedtime Algorithm Glucose: Dose: 70-299 No Insulin 300-349 4 Units Over 349 4 Units and notify physician 2143 (Not Given - Provider: Bandar Dudley RN - Reason: Order parameters not met) 2099 (Due) levothyroxine (SYNTHROID) tablet 88 mcg 88 mcg, Oral, DAILY, First dose on Thu09/18/22 at 0700, Until Discontinued, Tube feeding (TF) interaction, obtain physician order to manage, recommend holding TF for 30 minutes before and after dose. 523 (Given - Provid er: Bandar Dudley RN) memantine (NAMENDA) tablet 10 mg 10 mg, Oral, 2 TIMES DAILY, First dose on Thu09/17/22 at 2100, Until Discontinued 2142 (Given - Provider: Bandar Dudley RN) 829 (Given - Provider: Karyn Branch RN)2099 (Due) nystatin (MYCOSTATIN) cream Topical, 2 times daily, First dose on Thu09/17/22 at 2100, Apply to between legs. 2142 (Given - Provider: Bandar Dudley RN) 830 (Given - Provider: Karyn Branch RN)2099 (Due) phenazopyridine (PYRIDIUM) tablet 100 mg 100 mg, Oral, 3 TIMES DAILY WITH MEALS, 9 doses, First dose on Thu09/18/22 at 0800, Last dose on Thu09/20/22 at 1700, Take with food. May cause discoloration of urine. 0830 (Given - Provid er: Karyn Branch RN)1301 (Given - Provider: Sarah Rosario RN)153 (Given - Provider: Karyn Branch RN) propranolol (INDERAL LA) extended release capsule 120 mg 120 mg, Oral, DAILY, First dose on Thu09/17/22 at 2045, Until Discontinued, Do not crush or break. 2145 (Given - Provider: Bandar Dudley RN) 08 (Given - Provider: Karyn Branch RN) rOPINIRole (REQUIP) tablet 0.25 mg 0.25 mg, Oral, NIGHTLY, First dose on Thu09/17/22 at 2100, Until Discontinued 2142 (Given - Provider: Bandar Dudley RN) 2099 (Due) sodium chloride flush 0.9 % injection 5-40 mL 5-40 mL, IntraVENous, EVERY 12 HOURS SCHEDULED (2 times per day), First dose on Thu09/17/22 at 2100, Until Discontinued, For Line Patency: Peripheral IV = 5 mL; Midline or Central Line = 10 mL/lumen. If following IV push medication, administer flush at same rate as the IV push. Flush volume is determined by type of infusion therapy being given. For non-viscous solutions use: Peripheral IV = 5 mL Midline or Central Line = 10 mL/lumen For viscous solutions (i.e. blood components, parenteral nutrition, contrast media, or after obtaining blood sample) use: Peripheral IV = 10 mL Midline or Central Line = 20 mL/lumen 2147 (Given - Provider: Bandar Dudley RN) 828 (Given - Provider: Karyn Branch RN)2099 (Due) tamsulosin (FLOMAX) capsule 0.4 mg 0.4 mg, Oral, DAILY, First dose on Nia 09/18/22 at 1215, Until Discontinued, Do not crush or break. 130 (Given - Provid er: Sarah Rosario RN) traZODone (DESYREL) tablet 50 mg 50 mg, Oral, NIGHTLY, First dose on Thu09/17/22 at 2100, Until Discontinued 2142 (Given - Provider: Bandar Dudley RN) 2099 (Due) trospium (SANCTURA) tablet 20 mg (CANCELED) 20 mg, Oral, NIGHTLY, First dose on Thu09/17/22 at 2100, Until Discontinued, Substituted for Solifenacin (VESICARE). 2142 (Given - Provider: Bandar Dudley, RN) Continuous Medication Order 09/16/2022 09/17/2022 09/18/2022 0.9 % sodium chloride infusion IntraVENous, at 100 mL/hr, CONTINUOUS, Starting on Thu09/17/22 at 2044 2023 (New Bag - Provider: Bandar Dudley, RN) 161 (Stopped - Provider: Karyn Branch RN) PRN Medication Order 09/16/2022 09/17/2022 09/18/2022 0.9 % sodium chloride infusion IntraVENous, at 5-250 mL/hr, PRN, if patient receiving piggyback infusions and maintenance fluids are not ordered OR KVO fluids to protect IV site / prevent frequent line interruptions/ long duration, Starting on Thu09/17/22 at 2018, For piggyback infusion, administer at same rate as piggyback for a total of 25 mL. Enter 25 mL into dose field and piggyback rate into rate field of order. If piggyback is infusing at a rate less than 100 mL/hr, enter 25 mL into dose field and 100 mL/hr into rate field of order. For KVO fluids, enter rate of 20 mL/hr or less into rate field of order. acetaminophen (TYLENOL) suppository 650 mg(Linked Group 1) 650 mg, Rectal, EVERY 6 HOURS PRN, Starting on Thu09/17/22 at 2018, Until Discontinued, Pain Mild (1-3), Fever, For temp greater than 100.4 F (38 C), Administer if oral route cannot be used. acetaminophen (TYLENOL) tablet 650 mg(Linked Group 1) 650 mg, Oral, EVERY 6 HOURS PRN, Starting on Thu09/17/22 at 2018, Until Discontinued, Pain Mild (1-3), Fever, For temp greater than 100.4 F (38 C), Maximum dose of acetaminophen is 4000 mg from all sources in 24 hours. aminophylline injection 50 mg 50 mg, IntraVENous, PRN, Starting on Nia 09/18/22 at 1012, Until Nia 09/18/22 at 1611, severe wheezing, FOR USE IN CARDIAC STRESS LAB ONLY. DO NOT GIVE IF PATIENT HAS HISTORY OF SEIZURES. DO NOT GIVE SOONER THAN 1 MINUTE AFTER A RADIONUCLIDE INJECTION. May repeat dose x 1 after 5 minutes if no relief with initial dose., Pre-procedure(Stress) dextrose 10 % infusion IntraVENous, at 100 mL/hr, CONTINUOUS PRN, if blood glucose remains LESS THAN 70 mg/dL after 2 dextrose 10% intravenous boluses or administration of glucagon, Starting on Thu09/17/22 at 2017, If blood glucose fails to stabilize after 2 dextrose 10% intravenous boluses or glucagon administration, start dextrose 10% infusion at 100 mL/hour and repeat blood glucose at 30 and 60 minutes. If blood glucose is GREATER THAN 70 mg/dL after 60 minutes, discontinue dextrose 10% infusion. dextrose bolus 10% 125 mL(Linked Group 2) 125 mL, IntraVENous, at 937.5 mL/hr, Administer over 8 Minutes, PRN, Other, Blood glucose 40 - 69 mg/dL and patient NOT ALERT or NPO, Starting on Thu09/17/22 at 2017, Repeat blood glucose in 15 minutes. If blood glucose remains LESS THAN 70 mg/dL, repeat treatment and recheck blood glucose in 15 minutes x 2. If using glycemic management system, dose as instructed per system. If blood glucose remains LESS THAN 70 mg/dL after 2 intravenous boluses start dextrose 10% at 100 mL/hour and notify provider. dextrose bolus 10% 250 mL(Linked Group 2) 250 mL, IntraVENous, at 937.5 mL/hr, Administer over 16 Minutes, PRN, Other, Blood glucose LESS THAN 40 mg/dL and patient NOT ALERT or NPO, Starting on Thu09/17/22 at 2017, Repeat blood glucose in 15 minutes. If blood glucose remains LESS THAN 70 mg/dL, repeat treatment and recheck blood glucose in 15 minutes x 2. If using glycemic management system, dose as instructed per system. If blood glucose remains LESS THAN 70 mg/dL after 2 intravenous boluses start dextrose 10% at 100 mL/hour and notify provider. diphenoxylate-atropine (LOMOTIL) 2.5-0.025 MG per tablet 1 tablet 1 tablet, Oral, 4 TIMES DAILY PRN, Starting on Thu09/17/22 at 2018, Until Discontinued, Diarrhea glucagon injection 1 mg 1 mg, SubCUTAneous, PRN, Starting on Thu09/17/22 at 2017, Until Discontinued, Low blood sugar, Blood glucose LESS THAN 70 mg/dL and patient NOT ALERT or NPO and does not have IV access., After administration, attempt intravenous access and start dextrose 10% at 100 mL/hr. Repeat blood glucose in 15 minutes x 2 and notify provider. glucose chewable tablet 16 g 16 g (4 tablet), Oral, PRN, Starting on Thu09/17/222017, Until Discontinued, Low blood sugar, If blood glucose is LESS THAN 70 mg/dL and patient is alert and tolerating oral. Give 4 tablets (16g) Repeat blood glucose in 15 minutes. If blood glucose is LESS THAN 70 mg/dL, repeat treatment and recheck blood glucose in 15 minutes x 2. If blood glucose remains LESS THAN 70 mg/dL, notify provider. ondansetron (ZOFRAN) injection 4 mg(Linked Group 3) 4 mg, IntraVENous, EVERY 6 HOURS PRN, Starting on Thu09/17/22 at 2017, Until Discontinued, Nausea, Vomiting, Administer if oral route cannot be used. ondansetron (ZOFRAN-ODT) disintegrating tablet 4 mg(Linked Group 3) 4 mg, Oral, EVERY 8 HOURS PRN, Starting on Thu09/17/22 at 2017, Until Discontinued, Nausea, Vomiting polyethylene glycol (GLYCOLAX) packet 17 g 17 g, Oral, DAILY PRN, Starting on Thu09/17/222017, Until Discontinued, Constipation, First line therapy for constipation regadenoson (LEXISCAN) injection 0.4 mg 0.4 mg, IntraVENous, IMG ONCE PRN, 1 dose, Starting on Thu09/18/22 at 0707, Until Discontinued, Other, Only to be given in Nuclear Med during CARDIAC STRESS TEST ONLY. sodium chloride flush 0.9 % injection 5-40 mL 5-40 mL, IntraVENous, PRN, Starting on Thu09/17/222017, Until Discontinued, Line Care, After every IV line use, For Line Patency: Peripheral IV = 5 mL; Midline or Central Line = 10 mL/lumen. If following IV push medication, administer flush at same rate as the IV push. Flush volume is determined by type of infusion therapy being given. For non-viscous solutions use: Peripheral IV = 5 mL Midline or Central Line = 10 mL/lumen For viscous solutions (i.e. blood components, parenteral nutrition, contrast media, or after obtaining blood sample) use: Peripheral IV = 10 mL Midline or Central Line = 20 mL/lumen sodium chloride flush 0.9 % injection 5-40 mL 5-40 mL, IntraVENous, PRN, Starting on Nia 09/18/22 at 1012, Until Nia 09/18/22 at 1611, Line Care, FOR USE IN CARDIAC STRESS LAB ONLY. If following IV push medication, administer flush at same rate as the IV push. Flush volume is determined by type of infusion therapy being given. For non-viscous solutions use: Peripheral IV = 5 mL Midline or Central Line = 10 mL/lumen For viscous solutions (i.e. blood components, parenteral nutrition, contrast media, or after obtaining blood sample) use: Peripheral IV = 10 mL Midline or Central Line = 20 mL/lumen, Pre-procedure(Stress) technetium sestamibi (CARDIOLITE) injection 10 millicurie (COMPLETED) 10 millicurie, IntraVENous, IMG ONCE PRN, 1 dose, Starting on Thu09/18/22 at 1027, Until Nia 09/18/22 at 1027, Other 1027 (Given - Provid er: Eddie Esparza) technetium sestamibi (CARDIOLITE) injection 30 millicurie (COMPLETED) 30 millicurie, IntraVENous, IMG ONCE PRN, 1 dose, Starting on Nia 09/18/22 at 1027, Until Nia 09/18/22 at 1027, Other 1027 (Given - Provid er: Eddie Esparza) Linked Groups Order Group 1: acetaminophen (TYLENOL) tablet 650 mgJump to med 650 mg, Oral, EVERY 6 HOURS PRN, Starting on Thu09/17/22 at 2018, Until Discontinued, Pain Mild (1-3), Fever, For temp greater than 100.4 F (38 C)
Maximum dose of acetaminophen is 4000 mg from all sources in 24 hours.
Or acetaminophen (TYLENOL) suppository 650 mgJump to med 650 mg, Rectal, EVERY 6 HOURS PRN, Starting on Thu09/17/22 at 2017, Until Discontinued, Pain Mild (1-3), Fever, For temp greater than 100.4 F (38 C)
Administer if oral route cannot be used.
Group 2: dextrose bolus 10% 125 mLJump to med 125 mL, IntraVENous, at 937.5 mL/hr, Administer over 8 Minutes, PRN, Other, Blood glucose 40 - 69 mg/dL and patient NOT ALERT or NPO, Starting on Thu09/17/22 at 2017
Repeat blood glucose in 15 minutes. If blood glucose remains LESS THAN 70 mg/dL, repeat treatment and recheck blood glucose in 15 minutes x 2. If using glycemic management system, dose as instructed per system. If blood glucose remains LESS THAN 70 mg/dL after 2 intravenous boluses start dextrose 10% at 100 mL/hour and notify provider.
Or dextrose bolus 10% 250 mLJump to med 250 mL, IntraVENous, at 937.5 mL/hr, Administer over 16 Minutes, PRN, Other, Blood glucose LESS THAN 40 mg/dL and patient NOT ALERT or NPO, Starting on Thu09/17/22 at 2017
Repeat blood glucose in 15 minutes. If blood glucose remains LESS THAN 70 mg/dL, repeat treatment and recheck blood glucose in 15 minutes x 2. If using glycemic management system, dose as instructed per system. If blood glucose remains LESS THAN 70 mg/dL after 2 intravenous boluses start dextrose 10% at 100 mL/hour and notify provider.
Group 3: ondansetron (ZOFRAN-ODT) disintegrating tablet 4 mgJump to med 4 mg, Oral, EVERY 8 HOURS PRN, Starting on Thu09/17/22 at 2017, Until Discontinued, Nausea, Vomiting Or ondansetron (ZOFRAN) injection 4 mgJump to med 4 mg, IntraVENous, EVERY 6 HOURS PRN, Starting on Thu09/17/22 at 2017, Until Discontinued, Nausea, Vomiting
Administer if oral route cannot be used.
Care Teams (unrecognized sec tion and content) Team Status: Active Member Role Status Dates QING Oliva Primary Care Provider Active Team Status: Inactive Member Role Status Dates QING Oliva Attending Provider Active Start: February 09, 2024 End: February 09, 2024 Team Status: Inactive Member Role Status Dates QING Oliva Primary Care Provi chon, Attending Provider Active Start: February 23, 2024 End: February 23, 2024 Team Status: Inactive Member Role Status Dates Kendra Marquez MD Attending Provider Active Start: March 08, 2024 End: March 08, 2024 YRN OlivaC Primary Care Provider Active Start: March 08, 2024 End: March 08, 2024 Team Status: Inactive Member Role Status Dates Ginger Roland EXECUTIVE COMMUNICATIONS MANAGER-C Primary Care Provider Active Start: May 03, 2024 End: May 03, 2024 Kendra Marquez MD Attending Provider Active Start: May 03, 2024 End: May 03, 2024 Team Status: Active Member Role Status Dates Marvin Husain PA-C Primary Care Provider Active Start: December 29, 2023 Mckinley Palomares MD Attending Provider Active Start: December 29, 2023 Team Status: Inactive Member Role Status Dates Marvin Husain PA-C Primary Care Provider Active Start: December 29, 2023 End: January 01, 2024 Mckinley Palomares MD Admit Provide r, Attending Provider Active Start: December 29, 2023 End: January 01, 2024 Team Status: Active Member Role Status Dates Marvin Husain PA-C Primary Care Provider Active Start: December 30, 2023 Mckinley Palomares MD Admit Provide r, Attending Provider, Other Provider Active Start: December 30, 2023 Team Status: Inactive Member Role Status Dates Marvin Husain PA-C Primary Care Provider Active Start: January 12, 2024 End: January 12, 2024 Kendra Marquez MD Attending Provider Active Start: January 12, 2024 End: January 12, 2024 Software Development Test Engineer Relationship Specialty Start Date End Date Obed Dunn MD [address] [place] [address] PCP - General Family Medicine 07/26/20 Software Development Test Engineer Relationship Specialty Start Date End Date Obed Dunn MD [address] [place] [address] PCP - General Family Medicine 07/26/20 Software Development Test Engineer Relationship Specialty Start Date End Date Obed Dunn MD [address] [place] [address] PCP - General Family Medicine 07/26/20 Software Development Test Engineer Relationship Specialty Start Date End Date Obed Dunn MD [address] [place] [address] PCP - General Family Medicine 07/26/20 Software Development Test Engineer Relationship Specialty Start Date End Date Obed Dunn MD [address] [place] [id number] PCP - General Family Medicine 07/26/20 Software Development Test Engineer Relationship Specialty Start Date End Date Obed Dunn MD [address] [place] [id number] PCP - General Family Medicine 07/26/20 Software Development Test Engineer Relationship Specialty Start Date End Date Obed Dunn MD [address] [place] [id number] PCP - General Family Medicine 07/26/20 Software Development Test Engineer Relationship Specialty Start Date End Date Obed Dunn MD [address] [place] [address] PCP - General Family Medicine 07/26/20 Software Development Test Engineer Relationship Specialty Start Date End Date Obed Dunn MD [address] [place] [address] PCP - General Family Medicine 07/26/20 Software Development Test Engineer Relationship Specialty Start Date End Date Obed Dunn MD [address] [place] [address] PCP - General Family Medicine 07/26/20 Software Development Test Engineer Relationship Specialty Start Date End Date Obed Dunn MD [address] [place] [id number] PCP - General Family Medicine 07/26/20 Software Development Test Engineer Relationship Specialty Start Date End Date Obed Dunn MD [address] [place] [id number] PCP - General Family Medicine 07/26/20 Software Development Test Engineer Relationship Specialty Start Date End Date Obed Dunn MD [address] [place] [id number] PCP - General Family Medicine 07/26/20 Software Development Test Engineer Relationship Specialty Start Date End Date Obed Dunn MD [address] [place], [place] [id number] PCP - General Family Medicine 07/26/20 Software Development Test Engineer Relationship Specialty Start Date End Date Obed Dunn MD [address] [place], [place] [id number] PCP - General Family Medicine 07/26/20 Software Development Test Engineer Relationship Specialty Start Date End Date Obed Dunn MD [address] [place] [id number] PCP - General Family Medicine 07/26/20 Software Development Test Engineer Relationship Specialty Start Date End Date Obed Dunn MD [address] [place] [id number] PCP - General Family Medicine 07/26/20 Software Development Test Engineer Relationship Specialty Start Date End Date Bradly Doyle MD [address] [place], [place] [id number] Ngo [place] PCP - General Family Medicine 11/11/22 Software Development Test Engineer Relationship Specialty Start Date End Date Bradly Doyle MD [address] [place] [address] Dr. Ngo [place] PCP - General Family Medicine 11/11/22 Software Development Test Engineer Relationship Specialty Start Date End Date Marvin Husain PA-C [address] [place] [address] PCP - General 12/29/22 Team Status: Active Member Role Status Dates Marvin Husain PA-C Primary Care Provider Active Team Status: Inactive Member Role Status Dates Marvin Husain PA-C Primary Care Provider Active Start: November 18, 2023 End: November 18, 2023 Timothy Presley MD Attending Provider Active Start : November 18, 2023 End: November 18, 2023 Team Status: Inactive Member Role Status Dates Marvin Husain PA-C Primary Care Provider Active Start: November 23, 2023 End: November 23, 2023 Timothy Presley MD Attending Provider Active Start : November 23, 2023 End: November 23, 2023 Team Status: Active Member Role Status Dates Loreta Casillas EXECUTIVE COMMUNICATIONS MANAGER-C Primary Care Provider Active Team Status: Inactive Member Role Status Dates Ginger Roland EXECUTIVE COMMUNICATIONS MANAGER-C Primary Care Provider Active Start: June 07, 2024 End: June 07, 2024 Timothy Presley MD Attending Provider Active Start : June 07, 2024 End: June 07, 2024 Team Status: Active Member Role Status Dates Ginger Roland EXECUTIVE COMMUNICATIONS MANAGER-C Primary Care Provider Active Start: June 07, 2024 Timothy Presley MD Attending Provider Active Start : June 07, 2024 Team Status: Inactive Member Role Status Dates Timothy Presley MD Attending Provider Active Start : June 08, 2024 End: June 08, 2024 Loreta Casillas EXECUTIVE COMMUNICATIONS MANAGER-C Primary Care Provider Active Start: June 08, 2024 End: June 08, 2024 Team Status: Inactive Member Role Status Dates Kendra Marquez MD Attending Provider Active Start: August 02, 2024 End: August 02, 2024 Loreta Casillas EXECUTIVE COMMUNICATIONS MANAGER-C Primary Care Provider Active Start: August 02, 2024 End: August 02, 2024 Software Development Test Engineer Relationship Specialty Start Date End Date Justin Doyle MD [address] [place] [id number] PCP - General 06/17/24 Loreta Casillas MD [address] [place], [place] [id number] Referring Physician Family Medicine 06/17/24 Software Development Test Engineer Relationship Specialty Start Date End Date Justin Doyle MD [address] [place] [id number] PCP - General 06/17/24 Loreta Casillas MD [address] [place], [place] [id number] Referring Physician [facility] 06/17/24 Team Status: Inactive Member Role Status Dates Loreta Casillas NP-C Primary Care Provider Active Start: November 01, 2024 End: November 01, 2024 Kendra Marquez MD Attending Provider Active Start: November 01, 2024 End: November 01, 2024 Goals (unrecognized section and content) Goals may be documented in a n alternate section FOR RECORDS PERTAINING TO PATIENTS WHO ARE OR HAVE BEEN ENROLLED IN A CHEMICAL DEPENDENCY/SUBSTANCEABUSE PROGRAM, SOME INFORMATION MAY BE OMITTED. This clinical summary was aggregated from multiple sources. Caution should be exercised in using it in the provision of clinical care. This summary normalizes information from multiple sources, and as a consequence, information in this document may materially change the coding, format and clinical context of patient data. In addition, data may be omitted in some cases. CLINICAL DECISIONS SHOULD BE BASED ON THE PRIMARY CLINICAL RECORDS. [facility] provides no warranty or guarantee of the accuracy or completeness of information in this document.
[2024-12-20 08:47] LABS: Glucose Urine UA NEGATIVE (NEGATIVE)
[2024-12-20 08:48] LABS: Hematocrit 40.5 % (36.0-48.0); Hemoglobin 13.4 g/dL (12.0-16.0); Mean Corpuscular HGB Conc 33.1 g/dL (29.9-35.2); Mean Corpuscular Hemoglobin 30.2 pg (26.7-34.0); Mean Corpuscular Volume 91.4 fL (81.0-99.0); Platelet Count 168 10^3/uL (150-450); Red Blood Count 4.43 10^6/uL (4.20-5.40); White Blood Count 6.7 10^3/uL (4.0-11.0)
[2024-12-20 08:55] LABS: Protein Creatinine Ratio Urine 0.22; Total Protein Urine Random 12.7 mg/dL (<=11.9)
[2024-12-20 08:58] LABS: Cast Seen? NONE SEEN #/LPF (NONE SEEN); Crystals Seen? None Seen #/HPF (None Seen)
[2024-12-20 09:26] LABS: Albumin Level 3.4 g/dL (3.4-5.0); Anion Gap 11.2; Blood Urea Nitrogen 11.0 mg/dL (7.0-18.0); Calcium 9.5 mg/dL (8.5-10.1); Carbon Dioxide 29.3 mmol/L (21.0-32.0); Chloride 106 mmol/L (98-107); Estimated GFR (African America 59 (>=60 mL/min/1.73m^2); Estimated GFR (Non-African Ame 48 (>=60 mL/min/1.73m^2); Glucose 143 mg/dL (74-106); Magnesium 1.9 mg/dL (1.8-2.4); Potassium 3.5 mmol/L (3.5-5.1); Sodium 143 mmol/L (136-145); Uric Acid 5.7 mg/dL (2.6-6.0)
== END 2024-12-20 08:15 | disposition home or self-care (01) ==
LOC: LAB 08:15
PROVIDERS: Visit Provider Internal Medicine
DX: E83.42 Hypomagnesemia (principal); E78.5 Hyperlipidemia, unspecified; E79.0 Hyperuricemia without signs of inflammatory arthritis and tophaceous disease; N25.81 Secondary hyperparathyroidism of renal origin; E55.9 Vitamin D deficiency, unspecified; I12.9 Hypertensive chronic kidney disease with stage 1 through stage 4 chronic kidney disease, or unspecified chronic kidney disease; N18.30 Chronic kidney disease, stage 3 unspecified; E11.22 Type 2 diabetes mellitus with diabetic chronic kidney disease
CPT/HCPCS: 36415; 80069; 81001; 82306; 82570; 83735; 83970; 84156; 84550; 85027